=== PATIENT | female | born 1955 | race Two or more races ===

== ENCOUNTER 2017-05-21 13:03 | Inpatient (IN) | payer MEDICARE, MEDICAID ==
[~2017-05-21] VITALS: Ht 152.4 cm; Wt 100.2 kg
--- NOTE | 2017-05-21 13:15 | Emergency Room Report ---
History of Present Illness General Chief Complaint: General Complaint Source: Family Member, Medical Record (Sharif Pino M.D.) Present Illness HPI 62-year-old female, history of hypertension, anoxic brain injury, trach vent dependent, PEG, bedbound, nonverbal, presenting with decreased urination. Patient is nonverbal, history is obtained from sister. 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 Last night only had a "trickle". Patient has been getting fed via G-tube normally with the exception of having held her dinner last night. He should sister is denying known fever chills vomiting diarrhea sister states she has allergies to "a lot" of antibiotics, and she has gotten them before and gets hives, no hx of anaphylaxis, gets benadryl before abx now pt is FULL CODE (Sharif Pino M.D.) Allergies: Coded Allergies: OLANZAPINE (Verified Allergy, Severe, RESP FAILURE, 11/25/13) VANCOMYCIN (Verified Allergy, Severe, 11/25/13) PIPERACILLIN (Verified Allergy, Intermediate, HIVES, 11/25/13) TAZOBACTAM (Verified Allergy, Intermediate, HIVES, 11/25/13) Patient History Past Medical History: see triage record Past Surgical History: none Pertinent Family History: none Reviewed Nursing Documentation: PMH: Agreed, PSxH: Agreed (Sharif Pino M.D. ) Nursing Documentation-PMH Hx Cardiac Problems: No Hx Hypertension: Yes Hx Pacemaker: No Hx Asthma: No Hx COPD: Yes - respiratory failure. trach/vent Hx Diabetes: No Hx Cancer: No Hx Gastrointestinal Problems: No Hx Dialysis: No History Of Psychiatric Problem: No Hx Cerebrovascular Accident: No Hx Seizures: No (Sharif Pino M.D.) Review of Systems All Other Systems: limited - nonverbal (Sharif Pino M.D.) Physical Exam Vital Signs Date Time Temp Pulse Resp B/P (MAP) Pulse Ox O2 Delivery O2 Flow Rate FiO2 05/21/17 12:56 88 16 100/76 98 Mechanical Ventilator 28 Sp02 EP Interpretation: abnormal - 100% on vent General Appearance: other - obese, chronically ill, nonverbal Head: normocephalic, atraumatic Eyes: bilateral eye normal inspection, bilateral eye PERRL, bilateral eye EOMI ENT: moist mucus membranes Neck: normal inspection, full range of motion, supple Respiratory: other - trach'ed with mechanical b/s Cardiovascular #1: normal inspection, regular rate, rhythm, normal capillary refill Cardiovascular #2: 2+ radial (R), 2+ radial (L) Gastrointestinal: other - G tube in place, abd distension, no grimace to deep palpation Musculoskeletal: other - +2 pitting edema b/l Neurologic: other - nonverbal, total paralysis Psychiatric: other - nonverbal Skin: normal inspection, normal color, no rash, warm/dry, well hydrated, normal turgor (RetinoRoberthirose M.DArnoldo) Procedures Critical Care Time Critical Care Time 40 minutes of CC time 62-year-old female, trach, bend, decreased urination Trach tube to vent PLAN: IV access, labs, lactate, troponin, Blood/Urine Cx, Abx, IVF Anticipate admission to [facility] CC time also includes review of labs, review of EMR, discussion with family and paperwork from SNF, d/w hospitalist CC could include dosing of pressors, additional Abx CC time does not include procedures (RetinoRoberthiro M.DArnoldo) Medical Decision Making Diagnostic Impression: Primary Impression: UTI (urinary tract infection) Qualified Codes: N30.01 - Acute cystitis with hematuria Additional Impression: Tracheostomy dependence ER Course 52-year-old female, trach, PEG, decreased urination DDX: Sepsis: UTI/pneumonia Dehydration, electrolyte disturbance, renal failure Abdomen is a little bit more distended than normal per sister, other intra- abdominal source such as diverticulitis, SBO, appendicitis Plan: Obtain labs, ua, EKG, CXR CT abdomen pelvis ER course: Patient has been monitored during ED stay Trach'ed to vent valencia placed - only 40 cc urine out UA positive for UTI - aztreonam given for PCN allergy spoke extensively w/ patients sister who wants patient transferred to another facility, I also spoke with Dr Evans who states wants to wait for CT scan results before admitting here. I told patient it would be extremely difficult to transfer patient to [facility] as there is no clear indication at this time, she understands bt wants to hold the admission until CT and after Dr Evans sees patient Disposition: Signed out patient to Dr. Chatterjee -pending CT scan -please discuss with Dr Evans results before admitting patient to [facility] as sister might have patient leave AMA to go to another facility Please note that this Emergency Department Report was dictated using [employer] anatomic pathology technology software, occasionally this can lead to erroneous entry secondary to interpretation by the dictation equipment. EKG Diagnostic Results EP Interpretation: Yes Rate: normal Rhythm: NSR ST Segments: T wave flattening V3, mild diffuse ST depression ASA given to patient: No Rhythm Strip EP Interpretation: Yes Rate: 90 Rhythm: NSR, no PVCs, no ectopy Chest X-ray CXR: Ordered: Yes 1 view Indication: AMS EP interpretation: Yes Interpretation: Tracheostomy noted, cardiomegaly, unable to fully evaluate left lung base Impression: trach, cardiomegaly Electronically signed by Sharif Pino MD Laboratory Tests Test 05/21/17 13:15 05/21/17 13:16 05/21/17 14:45 05/22/17 03:15 White Blood Count 21.8 K/UL (4.8-10.8) H 23.2 K/UL (4.8-10.8) *H Red Blood Count 4.20 M/UL (4.20-5.40) 3.69 M/UL (4.20-5.40) L Hemoglobin 11.9 G/DL (12.0-16.0) L 10.6 G/DL (12.0-16.0) L Hematocrit 35.8 % (37.0-47.0) L 31.5 % (37.0-47.0) L Mean Corpuscular Volume 85 FL (80-99) 85 FL (80-99) Mean Corpuscular Hemoglobin 28.2 PG (27.0-31.0) 28.8 PG (27.0-31.0) Mean Corpuscular Hemoglobin Concent 33.2 G/DL (32.0-36.0) 33.7 G/DL (32.0-36.0) Red Cell Distribution Width 13.8 % (11.6-14.8) 14.0 % (11.6-14.8) Platelet Count 850 K/UL (150-450) H 847 K/UL (150-450) H Mean Platelet Volume 6.4 FL (6.5-10.1) L 6.3 FL (6.5-10.1) L Neutrophils (%) (Auto) % (45.0-75.0) % (45.0-75.0) Lymphocytes (%) (Auto) % (20.0-45.0) % (20.0-45.0) Monocytes (%) (Auto) % (1.0-10.0) % (1.0-10.0) Eosinophils (%) (Auto) % (0.0-3.0) % (0.0-3.0) Basophils (%) (Auto) % (0.0-2.0) % (0.0-2.0) Differential Total Cells Counted 100 100 Neutrophils % (Manual) 78 % (45-75) H 87 % (45-75) H Lymphocytes % (Manual) 12 % (20-45) L 9 % (20-45) L Monocytes % (Manual) 8 % (1-10) 4 % (1-10) Eosinophils % (Manual) 1 % (0-3) 0 % (0-3) Basophils % (Manual) 1 % (0-2) 0 % (0-2) Band Neutrophils 0 % (0-8) 0 % (0-8) Platelet Estimate Increased H Increased H Platelet Morphology Normal Normal Hypochromasia 1+ 1+ Anisocytosis 1+ Prothrombin Time 10.8 SEC (9.30-11.50) Prothrombin Time INR 1.0 (0.9-1.1) PTT 31 SEC (23-33) Lactic Acid Level 1.00 mmol/L (0.66-2.22) Troponin I 0.000 ng/mL (0.000-0.056) Urine Color [place] Urine Appearance Cloudy Urine pH 5 (4.5-8.0) Urine Specific [place] 1.015 (1.005-1.035) Urine Protein 3+ (NEGATIVE) H Urine Glucose (UA) Negative (NEGATIVE) Urine Ketones Negative (NEGATIVE) Urine Occult Blood 2+ (NEGATIVE) H Urine Nitrite Negative (NEGATIVE) Urine Bilirubin Negative (NEGATIVE) Urine Ictotest Negative Urine Urobilinogen Normal MG/DL (0.0-1.0) Urine Leukocyte Esterase 3+ (NEGATIVE) H Urine RBC 2-4 /HPF (0 - 2) H Urine WBC 10-15 /HPF (0 - 2) H Urine Squamous Epithelial Cells Many /LPF (NONE/OCC) H Urine Amorphous Sediment Moderate /LPF (NONE) H Urine Bacteria Many /HPF (NONE) H Sodium Level 128 MMOL/L (136-145) L 132 MMOL/L (136-145) L Potassium Level 6.1 MMOL/L (3.5-5.1) *H 4.5 MMOL/L (3.5-5.1) Chloride Level 97 MMOL/L (98-107) L 101 MMOL/L (98-107) Carbon Dioxide Level 16 MMOL/L (21-32) L 13 MMOL/L (21-32) L Anion Gap 15 mmol/L (5-15) 18 mmol/L (5-15) H Blood Urea Nitrogen 49 mg/dL (7-18) H 51 mg/dL (7-18) H Creatinine 1.3 MG/DL (0.55-1.30) 1.3 MG/DL (0.55-1.30) Estimate Glomerular Filtration Rate 41.5 mL/min (>60) 41.5 mL/min (>60) Glucose Level 137 MG/DL (74-106) H 167 MG/DL (74-106) H Calcium Level 8.9 MG/DL (8.5-10.1) 8.5 MG/DL (8.5-10.1) Total Bilirubin 0.4 MG/DL (0.2-1.0) 0.3 MG/DL (0.2-1.0) Aspartate Amino Transferase (AST) 15 U/L (15-37) 17 U/L (15-37) Alanine Aminotransferase (ALT) 33 U/L (12-78) 32 U/L (12-78) Alkaline Phosphatase 105 U/L (46-116) 96 U/L (46-116) Pro-B-Type Natriuretic Peptide 2351 pg/mL (0-125) H 3018 pg/mL (0-125) H Total Protein 7.4 G/DL (6.4-8.2) 6.4 G/DL (6.4-8.2) Albumin 2.7 G/DL (3.4-5.0) L 2.3 G/DL (3.4-5.0) L Globulin 4.7 g/dL Albumin/Globulin Ratio 0.6 (1.0-2.7) L Lipase 96 U/L (73-393) Hemoglobin A1c 6.0 % (4.3-6.0) Osmolality 399 mOsm/kg (297-317) H Uric Acid 12.4 MG/DL (2.6-7.2) H Phosphorus Level 7.7 MG/DL (2.5-4.9) H Magnesium Level 2.0 MG/DL (1.8-2.4) Iron Level 27 ug/dL (50-175) L Total Iron Binding Capacity 216 ug/dL (250-450) L Percent Iron Saturation 13 % (15-50) L Unsaturated Iron Binding 189 ug/dL (112-346) Ferritin 175 NG/ML (8-388) Direct Bilirubin 0.1 MG/DL (0.0-0.3) Gamma Glutamyl Transpeptidase 161 U/L (5-85) H C-Reactive Protein, Quantitative 7.4 mg/dL (0.00-0.90) H Triglycerides Level 402 MG/DL (30-150) H Cholesterol Level 173 MG/DL (< 200) LDL Cholesterol 90 mg/dL (<100) HDL Cholesterol 21 MG/DL (40-60) L Cholesterol/HDL Ratio 8.2 (3.3-4.4) H Vitamin B12 Level 1075 PG/ML (193-986) H Folate 51.6 NG/ML (8.6-58.9) Thyroid Stimulating Hormone (TSH) 2.174 uiU/mL (0.358-3.740) Test 05/22/17 04:00 05/22/17 07:00 Urine Osmolality 338 mOsm/kg (429-449) L Urine Random Sodium < 10 MEQ/L (20-110) L Arterial Blood pH 7.240 (7.350-7.450) Arterial Blood Partial Pressure CO2 27.7 mmHg (35.0-45.0) L Arterial Blood Partial Pressure O2 107.9 mmHg (75.0-100.0) H Arterial Blood HCO3 11.8 mmol/L (22.0-26.0) L Arterial Blood Oxygen Saturation 97.2 % (92.0-98.0) Arterial Blood Base Excess -14.0 Jayden Test Positive (Sharif Pino M.D.) ER Course Received signout from Dr. Mcmahan at 2:30 PM Labs significant for hyperkalemia No EKG changes on EKG Was given albuterol per trach and Kayexalate per verbal report from Dr. Hancock CT does not show acute abnormality to explain observed abdominal distention There are masses on both knees There is atelectasis, or soft tissue edema of the chest There is some consolidation versus fluid in the lungs as well also noted is possibly bloody pericardial effusion Patient is not tachycardic or hypotensive. Unlikely tamponade at this time findings discussed with Dr. Evans, PND Tissue was already endorsed to Dr. Evans by Dr. Pino (RASHAAD CHATTERJEE M.D.) Last Vital Signs Date Time Temp Pulse Resp B/P (MAP) Pulse Ox O2 Delivery O2 Flow Rate FiO2 05/21/17 12:56 88 16 100/76 98 Mechanical Ventilator 28 (Sharif Pino M.D.) Status: improved (RASHAAD CHATTERJEE M.D.) Disposition: ADMITTED INPATIENT Condition: Critical Sharif Pino M.D. May 21, 2017 13:15 RASHAAD CHATTERJEE M.D. May 21, 2017 16:53
[2017-05-21] MEDS ORDERED: TERAZOSIN HCL1 MG GT (13:18)
[2017-05-21] MEDS ORDERED: ALBUTEROL2.5 MG/3 M INH (13:18)
[2017-05-21] MEDS ORDERED: ATENOLOL25 MG GT (13:18)
[2017-05-21] MEDS ORDERED: VICODIN 5-3001 EACH GT ×2 (13:18→23:18)
[2017-05-21] MEDS ORDERED: ACETAMINOP160 MG/5 M GT (13:18)
[2017-05-21] MEDS ORDERED: CATAPRES0.1 MG GT (13:18)
[2017-05-21] MEDS ORDERED: LORAZEPAM0.5 MG GT ×2 (13:18→23:18)
[2017-05-21] MEDS ORDERED: SYNTHROID150 MCG GT (13:18)
[2017-05-21 13:36] LABS: APPEARANCE,URINE CLOUDY; KETONES,URINE NEGATIVE (NEGATIVE); LEUKOCYTE ESTERASE ,URINE 3+ (NEGATIVE); NITRITE,URINE NEGATIVE (NEGATIVE); PH,URINE 5 (4.5-8.0); PROTEIN,URINE 3+ (NEGATIVE); UROBILINOGEN,URINE NORMAL MG/DL (0.0-1.0)
[2017-05-21 13:38] LABS: MEAN CORPUSCULAR HEMOGLOBIN 28.2 PG (27.0-31.0); MEAN CORPUSCULAR HGB CONC 33.2 G/DL (32.0-36.0); MEAN CORPUSCULAR VOLUME 85 FL (80-99); MEAN PLATELET VOLUME 6.4 FL (6.5-10.1); PLATELET COUNT 850 K/UL (150-450); RED CELL DISTRIBUTION WIDTH 13.8 % (11.6-14.8); WHITE BLOOD COUNT 21.8 K/UL (4.8-10.8)
[2017-05-21 13:47] LABS: AMORPHOUS SEDIMENT,UR MODERATE /LPF; BACTERIA,URINE MANY /HPF; ICTOTEST NEGATIVE; SQUAMOUS EPITHELIAL CELL,UR MANY /LPF (NONE/OCC)
[2017-05-21 13:50] LABS: PROTHROMBIN TIME 10.8 SEC (9.30-11.50)
[2017-05-21 13:53] VITALS: BP 104/80
[2017-05-21] MEDS: NS IV ONE ×3 (14:15→15:58)
[2017-05-21] MEDS: AZTREONAM IV ONE ×3 (14:15→15:58)
[2017-05-21 14:43] LABS: BAND NEUTROPHILS % (MANUAL) 0 % (0-8); BASOPHILS % (MANUAL) 1 % (0-2); EOSINOPHILS % (MANUAL) 1 % (0-3); LYMPHOCYTES % (MANUAL) 12 % (20-45); NEUTROPHILS % (MANUAL) 78 % (45-75); PLATELET ESTIMATE INCREASED; PLATELET MORPHOLOGY NORMAL; TOTAL CELLS COUNTED 100
[2017-05-21 14:44] LABS: ANISOCYTOSIS 1+; HYPOCHROMASIA 1+
[2017-05-21 15:00] VITALS: BP 118/75
[2017-05-21 15:28] LABS: ALANINE AMINOTRANSFERASE 33 U/L (12-78); ALBUMIN/GLOBULIN RATIO 0.6 (1.0-2.7); ANION GAP 15 mmol/L (5-15); ASPARTATE AMINO TRANSFERASE 15 U/L (15-37); CALCIUM 8.9 MG/DL (8.5-10.1); CARBON DIOXIDE 16 MMOL/L (21-32); CHLORIDE 97 MMOL/L (98-107); CREATININE 1.3 MG/DL (0.55-1.30); GLOMERULAR FILTRATION RATE 41.5 mL/min (>60); LIPASE 96 U/L (73-393); SODIUM 128 MMOL/L (136-145); TOTAL PROTEIN 7.4 G/DL (6.4-8.2)
[2017-05-21 15:29] LABS: POTASSIUM 6.1 MMOL/L (3.5-5.1)
[2017-05-21 16:00] VITALS: BP 112/86
[2017-05-21] MEDS ORDERED: Sodium Polystyrene Sulfonate Enema RECTAL ONE (16:15)
--- NOTE | 2017-05-21 16:36 | Diagnostic Imaging Report ---
Indication: Cough Technique: One view of the chest Comparison: 11/25/2013 Findings: There is opacification of the left lung base. There are some air bronchograms. The heart is enlarged. There is a tracheostomy again demonstrated. There is some atelectasis at the right lung base. Right lung and pleural space are otherwise clear. There is thoracic lumbar scoliotic deformity. Findings are similar to the previous study. Impression: Opacification of the left mid and lower lung, likely combination of pleural fluid and parenchymal consolidation
[2017-05-21 17:00] VITALS: BP 105/88
[2017-05-21] MEDS: Albuterol ud Inhalation HHN SCH ×3 (17:01→22:00)
--- NOTE | 2017-05-21 17:03 | Diagnostic Imaging Report ---
Indication: Abdominal pain Technique: Spiral acquisitions obtained through the abdomen and pelvis. Patient given enteric contrast No IV contrast utilized, per patient request.. Multiplanar reconstructions were generated. Total dose length product 1023 mGycm. CTDIvol(s) 19 mGy. Dose reduction achieved using automated exposure control Comparison: None Findings: There is equivocally a short normal appendix demonstrated. In any case, no evidence of acute appendicitis. No evidence of diverticulosis or diverticulitis. There is equivocal wall thickening of the ascending and proximal transverse colon, although this is more likely artifact of under distention. A small to moderate amount of ascites fluid is present. No free intraperitoneal air. Ingested contrast does traverse the entirety of the small bowel and reaches the cecum. No small bowel wall thickening is demonstrated. Distal esophagus is unremarkable. The stomach contains a gastrostomy tube which is in good position. The duodenum is unremarkable. Lack of IV contrast limits assessment of the solid organs. The liver demonstrates equivocal very slight contour irregularity. It demonstrates diffuse mild low attenuation, consistent with diffuse fatty change. Within segment 6, there is a 12 mm fat attenuation lesion. No other focal hepatic abnormality demonstrated. The gallbladder is surgically absent. There is no biliary ductal dilatation. The pancreas and spleen are unremarkable. The kidneys demonstrate lobulated contours bilaterally, and the left kidney is slightly atrophic. There is a round exophytic 2.9 cm mass coming off of the upper pole of the left kidney. There is a 13 mm soft tissue attenuation lesion, coming off of the interpolar region of the right kidney. There are also multiple right renal cysts. There is a exophytic lower pole right renal lesion which is too small to characterize. No mesenteric or retroperitoneal mass or adenopathy. The bladder is empty, contains a Chang catheter. There is a moderate amount of edema of the bilateral flank and buttock region subcutaneous fat. There is a pericardial effusion. This is incompletely included, measures up to 2.3 cm thick. The contents of the fusion are somewhat high in in attenuation, measuring up to 20 Hounsfield units. There are compressive atelectatic changes at both lung bases, more on the left than on the right. There is abundant epicardial fat which in addition to the pericardial fluid introduced to the enlarged cardiac silhouette chest radiograph, but the heart itself is not enlarged. Impression: Bilateral soft tissue attenuation renal lesions. While possibly on the basis of proteinaceous cysts, the possibility of solid neoplasm should be considered. Recommend further evaluation with ultrasound, contrast MRI, or contrast CT Evidence of anasarca, with pericardial effusion, ascites, and edema of the subcutaneous fat Note high attenuation of the pericardial fluid. This indicates that it could be bloody Equivocal mild wall thickening of the ascending and proximal transverse colon, more likely artifact of under distention, colitis not completely excludable. No evidence of bowel obstruction Gastrostomy tube in good position Diffuse mild hepatic low attenuation, consistent with diffuse fatty change. There is very questionable slight contour irregularity, which if real could indicate early cirrhotic changes. Correlate with clinical history and findings 12 mm fat attenuation lesion within right hepatic lobe, consistent with a benign lipoma Evidence of prior cholecystectomy Multiple right renal cysts and exophytic lower pole right renal lesion which is too small to characterize, no further followup necessary Bilateral basilar left greater than right pulmonary parenchymal compressive atelectasis Note that the pericardial effusion and unusually abundant epicardial fat into due to an enlarged cardiac contour on chest radio -- graph, but the heart itself is not enlarged Chang catheter Findings discussed by phone with Dr. Manjarrez in the emergency room at the time of interpretation The CT scanner at [facility] is accredited by the [employer] and the scans are performed using protocols designed to limit radiation exposure to as low as reasonably achievable to attain images of sufficient resolution adequate for diagnostic evaluation.
[2017-05-21] MEDS ORDERED: Sodium Polystyrene Sulfonate 15gm Powder GT ONE (17:30)
[2017-05-21] MEDS ORDERED: Aztreonam Inj 2 GM in NS 110 ML IV ONE (18:00)
[2017-05-21 18:47] VITALS: BP 123/93
[2017-05-21 20:00] VITALS: BP 105/66
--- NOTE | 2017-05-21 20:21 | Consultation ---
Consult Note Consult Note 62 year old female noted to have significant oliguria and transferred for evaluation. Patient had been significantly hypertensive and has been managed with variety of antihypertensives. Patient has had close monitoring of labs at home and has had normal renal function with very low creatinine levels. Patient has chronic anemia. She has had a prior admission to [facility] with ARF which resolved and difficult to control infection. Patient is well cared for by her sister but also recently had significant gastric residuals. Her urine output has been adequate but became very poor early am and the patient was brought in for evaluation. Patient unresponsive at baseline and ventilator dependent. patient is incontinent of bowel and bladder. the sister has chosen to give multiple vitamins, supplements, and natural feeds PMH trach vent dependent chronic encephalopathy diabetes hypothyroid hypertension pneumonia prior sepsis prior UTI anemia MEDS/ALLERGIES reviewed SHX: lives with caregivers at home; bed bound PHYSICAL EXAM WDWN female chronically ill NAD clear breath sounds bilaterally without rhonchi or wheeze [id number] without MRG NABS nontender no HSM; protuberant; GT no CC some edema diffusely short neck unresponsive Laboratory Tests Test 05/21/17 13:15 05/21/17 13:16 05/21/17 14:45 White Blood Count 21.8 K/UL (4.8-10.8) H Red Blood Count 4.20 M/UL (4.20-5.40) Hemoglobin 11.9 G/DL (12.0-16.0) L Hematocrit 35.8 % (37.0-47.0) L Mean Corpuscular Volume 85 FL (80-99) Mean Corpuscular Hemoglobin 28.2 PG (27.0-31.0) Mean Corpuscular Hemoglobin Concent 33.2 G/DL (32.0-36.0) Red Cell Distribution Width 13.8 % (11.6-14.8) Platelet Count 850 K/UL (150-450) H Mean Platelet Volume 6.4 FL (6.5-10.1) L Neutrophils (%) (Auto) % (45.0-75.0) Lymphocytes (%) (Auto) % (20.0-45.0) Monocytes (%) (Auto) % (1.0-10.0) Eosinophils (%) (Auto) % (0.0-3.0) Basophils (%) (Auto) % (0.0-2.0) Differential Total Cells Counted 100 Neutrophils % (Manual) 78 % (45-75) H Lymphocytes % (Manual) 12 % (20-45) L Monocytes % (Manual) 8 % (1-10) Eosinophils % (Manual) 1 % (0-3) Basophils % (Manual) 1 % (0-2) Band Neutrophils 0 % (0-8) Platelet Estimate Increased H Platelet Morphology Normal Hypochromasia 1+ Anisocytosis 1+ Prothrombin Time 10.8 SEC (9.30-11.50) Prothromb Time International Ratio 1.0 (0.9-1.1) Activated Partial Thromboplast Time 31 SEC (23-33) Lactic Acid Level 1.00 mmol/L (0.66-2.22) Troponin I 0.000 ng/mL (0.000-0.056) Urine Color [place] Urine Appearance Cloudy Urine pH 5 (4.5-8.0) Urine Specific [place] 1.015 (1.005-1.035) Urine Protein 3+ (NEGATIVE) H Urine Glucose (UA) Negative (NEGATIVE) Urine Ketones Negative (NEGATIVE) Urine Occult Blood 2+ (NEGATIVE) H Urine Nitrite Negative (NEGATIVE) Urine Bilirubin Negative (NEGATIVE) Urine Ictotest Negative Urine Urobilinogen Normal MG/DL (0.0-1.0) Urine Leukocyte Esterase 3+ (NEGATIVE) H Urine RBC 2-4 /HPF (0 - 2) H Urine WBC 10-15 /HPF (0 - 2) H Urine Squamous Epithelial Cells Many /LPF (NONE/OCC) H Urine Amorphous Sediment Moderate /LPF (NONE) H Urine Bacteria Many /HPF (NONE) H Sodium Level 128 MMOL/L (136-145) L Potassium Level 6.1 MMOL/L (3.5-5.1) *H Chloride Level 97 MMOL/L (98-107) L Carbon Dioxide Level 16 MMOL/L (21-32) L Anion Gap 15 mmol/L (5-15) Blood Urea Nitrogen 49 mg/dL (7-18) H Creatinine 1.3 MG/DL (0.55-1.30) Estimat Glomerular Filtration Rate 41.5 mL/min (>60) Glucose Level 137 MG/DL (74-106) H Calcium Level 8.9 MG/DL (8.5-10.1) Total Bilirubin 0.4 MG/DL (0.2-1.0) Aspartate Amino Transf (AST/SGOT) 15 U/L (15-37) Alanine Aminotransferase (ALT/SGPT) 33 U/L (12-78) Alkaline Phosphatase 105 U/L (46-116) Pro-B-Type Natriuretic Peptide 2351 pg/mL (0-125) H Total Protein 7.4 G/DL (6.4-8.2) Albumin 2.7 G/DL (3.4-5.0) L Globulin 4.7 g/dL Albumin/Globulin Ratio 0.6 (1.0-2.7) L Lipase 96 U/L (73-393) IMPRESSION respiratory failure possible UTI possible sepsis ARF/CRF hyperkalemia pericardial effusion possible renal cyst vs mass hypertension (now with normal BP off meds) chronic encephalopathy hypothyroidism diabetes PLAN ventilator echo MR abdomen and ultrasound sliding scale feeds as tolerated does not respond to reglan monitor for residuals iv hydration free water GI/renal/ID/cards evaluation monitor clinically empiric antibiotics (penicillin allergic) sister would want [facility] if requires higher level of care ANTIONETTE RODRIGUEZ May 21, 2017 20:21
[2017-05-21] MEDS ORDERED: Aztreonam Inj 0.5 GM in D5W 55 ML IVPB SCH (21:00)
[2017-05-21] MEDS ORDERED: IBEROGAST GT (23:18)
[2017-05-21] MEDS ORDERED: MAGIC BULLET10 MG RC (23:18)
[2017-05-21] MEDS ORDERED: SYSTANE 0.3-0.1 EAC1 OP (23:18)
[2017-05-21] MEDS ORDERED: MULTI-VITAMIN1 EACH GT (23:18)
[2017-05-21] MEDS ORDERED: CHLORTHALIDONE25 MG GT (23:18)
[2017-05-21] MEDS ORDERED: NOVOLOG100 UNIT/3 SUBQ (23:34)
[2017-05-21] MEDS ORDERED: REFRESH P.M. O3.5 GM OP (23:34)
[2017-05-21] MEDS ORDERED: UBIQUINOL100 MG GT (23:34)
[2017-05-21] MEDS ORDERED: BENEFIBER1 EACH GT (23:34)
[2017-05-21] MEDS ORDERED: NOVOLIN R100 UNIT/1 SUBQ (23:34)
[2017-05-22] VITALS: BP 89/74
--- NOTE | 2017-05-22 03:15 | Consultation ---
DATE OF CONSULTATION: 05/21/2017 GASTROENTEROLOGY CONSULTATION CONSULTING PHYSICIAN: Emily Hu M.D. ATTENDING PHYSICIAN: Maykel Evans M.D. REFERRING PHYSICIAN: Maykel Evans M.D. CHIEF COMPLAINT: I was asked to see this patient by Dr. Maykel Evans for evaluation of gastrostomy tube and feeding issues. HISTORY OF PRESENT ILLNESS: The patient is an unfortunate, debilitated 62-year-old white woman with longstanding history of brain injury, who lives at home with 24-hour support. The patient is nonverbal and bedbound. She has been advised to stay with a tracheostomy catheter and a gastrostomy catheter. These have been placed a long time ago. The patient was brought in to the hospital due to oliguria and in the emergency room was found to have severe hyperkalemia and possible sepsis with leukocytosis. The etiology is unclear, but urinary tract infection has been contemplated. The patient was also found to be hyponatremic, but at the same time with four limb and midbody anasarca. CT scan of the abdomen and pelvis has been done and is showing various changes which was supplemented separately. The family gave the patient the feeding in the form of a natural formula. She gets 3 bags in it daily with 330 calories per bag in addition to 2 tablespoons of medium-chain triglycerides and also 1 multivitamin daily. PAST MEDICAL HISTORY: History of tracheostomy, ventilator dependence, chronic encephalopathy, diabetes, hypothyroidism, hypertension, obesity, pneumonia, sepsis, urinary tract infection, and anemia. MEDICATIONS: See the chart list for details. FAMILY HISTORY: Noncontributory. SOCIAL HISTORY: The patient has a sister who looks after her affairs. She lives at home with a 24-hour manager grant. REVIEW OF SYSTEMS: Unobtainable. PHYSICAL EXAMINATION: GENERAL: Debilitated, bedbound, nonverbal white woman in vegetative state, seen with her sister and private duty nurse at bedside. HEENT: Normocephalic. The patient's dentition is poor. NECK: Supple. There is a tracheostomy catheter. CHEST: Reveals coarse breath sounds. CARDIOVASCULAR: Revealed a regular rate. ABDOMEN: Distended, gastrostomy tube, which was 18-Maldivian catheter which was somewhat old but functional. EXTREMITIES: Revealed 2+ edema in all 4 extremities as well as truncal anasarca. LABORATORY AND DIAGNOSTIC DATA: Laboratory data and CT scan were noted. ASSESSMENT: This patient has long-term gastrostomy catheter which should be changed both because the catheter appears somewhat old and also because it is 18-Maldivian caliber and should be upgraded to 20-Maldivian catheter which has less occlusion risk. In addition, the patient will need a bowel regimen. I will try to replicate the patient's home bowel regimen which is [id number] digital stimulation plus suppository. The body has diffuse anasarca and I suspect that this is the main cause of her diffuse swelling. She also has some degree of fatty liver disease and possible early cirrhosis which can be hard to control, but should be treated with appropriate medications. In addition, the patient has hyponatremia and should therefore be treated with free water restriction. RECOMMENDATIONS: Per above discussion and per orders written in the chart. Thank you for asking me to participate in the care of this patient. Emily Hu M.D. DR: Maribell JOB#: [id number] CC: MABLE
[2017-05-22 04:00] VITALS: BP 92/64
[2017-05-22] MEDS: Aztreonam Inj 1 GM in D5W 55 ML IVPB SCH ×2 (04:45→16:00)
[2017-05-22 04:58] LABS: MEAN CORPUSCULAR HEMOGLOBIN 28.8 PG (27.0-31.0); MEAN CORPUSCULAR HGB CONC 33.7 G/DL (32.0-36.0); MEAN CORPUSCULAR VOLUME 85 FL (80-99); MEAN PLATELET VOLUME 6.3 FL (6.5-10.1); PLATELET COUNT 847 K/UL (150-450); RED BLOOD COUNT 3.69 M/UL (4.20-5.40)
[2017-05-22 05:21] LABS: ALANINE AMINOTRANSFERASE 32 U/L (12-78); ASPARTATE AMINO TRANSFERASE 17 U/L (15-37); BILIRUBIN,DIRECT 0.1 MG/DL (0.0-0.3); CRP QUANT 7.4 mg/dL (0.00-0.90); PHOSPHORUS 7.7 MG/DL (2.5-4.9); TOTAL PROTEIN 6.4 G/DL (6.4-8.2); URIC ACID 12.4 MG/DL (2.6-7.2)
[2017-05-22 05:23] LABS: ANION GAP 18 mmol/L (5-15); CALCIUM 8.5 MG/DL (8.5-10.1); CARBON DIOXIDE 13 MMOL/L (21-32); CHLORIDE 101 MMOL/L (98-107); CHOLESTEROL 173 MG/DL (< 200); CHOLESTEROL/HDL RATIO 8.2 (3.3-4.4); CREATININE 1.3 MG/DL (0.55-1.30); GLOMERULAR FILTRATION RATE 41.5 mL/min (>60); POTASSIUM 4.5 MMOL/L (3.5-5.1); SODIUM 132 MMOL/L (136-145); THYROID STIMULATING HORMONE 2.174 uiU/mL (0.358-3.740)
[2017-05-22 05:29] LABS: IRON 27 ug/dL (50-175); TOTAL IRON BINDING CAPACITY 216 ug/dL (250-450)
[2017-05-22 05:49] LABS: WHITE BLOOD COUNT 23.2 K/UL (4.8-10.8)
[2017-05-22 06:05] LABS: FOLIC ACID 51.6 NG/ML (8.6-58.9)
--- NOTE | 2017-05-22 07:15 | Consultation ---
DATE OF CONSULTATION: 05/21/2017 CARDIOLOGY CONSULTATION CONSULTING PHYSICIAN: Ramo Toure M.D. REQUESTING PHYSICIAN: 1. Maykel Evans M.D. 2. Pito Jones M.D. REASON FOR CONSULTATION: Pericardial effusion and hypotension. HISTORY OF PRESENT ILLNESS: This 62-year-old female with tracheostomy and respiratory failure, has a history of hypertension and is on multiple antihypertensives. Over the past couple of days, she has had increasing residuals from her G-tube, decreasing urine output, increasing lethargy from baseline, and low blood pressure readings despite discontinuation of antihypertensives. The patient was brought to the emergency room at [facility] when evaluation including a CAT scan of the chest, abdomen and pelvis was obtained and a pericardial effusion noted. I have been asked to assist with further cardiovascular care. The patient has had episodes of sinus tachycardia as well since admission. Her rhythm remains sinus however. PAST MEDICAL HISTORY: Ventilator dependent, tracheostomy, encephalopathy, type 2 diabetes mellitus, hypothyroidism, hypertension, recurring pneumonias left sided predominantly, history of sepsis, recurring urinary tract infections, and anemia of chronic disease. ALLERGIES: Include vancomycin, tazobactam and piperacillin, and olanzapine. SOCIAL HISTORY: Negative for smoking, alcohol, or substance abuse. FAMILY HISTORY: Noncontributory. REVIEW OF SYSTEMS: Not obtainable from patient, however, caregivers at bedside note no fevers, some cough and sputum, recurring left-sided pneumonia, some leg swelling, decreased urine output, and decreasing level of consciousness from baseline. PHYSICAL EXAMINATION: VITAL SIGNS: Blood pressure 89/60, pulse 95, respirations 16, and temperature 98.6. GENERAL: The patient is ill-appearing, ventilator dependent, short neck, tracheostomy with vent connected. Eyes closed. LUNGS: With bilateral breath sounds and rhonchi, left greater than right. CARDIAC: Regular rhythm and rate. Distant S1 and S2. No appreciated rub. ABDOMEN: Soft, obese. G-tube site intact. EXTREMITIES: Reveal 2+ edema. NEUROLOGIC: Reveals paraparesis. LABORATORY AND DIAGNOSTIC DATA: White count 21.8, hemoglobin 11.9. Sodium 128, potassium 6.1, bicarbonate 16, BUN 49, and creatinine 1.3. Pro-natriuretic peptide 2300. Albumin 2.7. INR is 1.0. Urinalysis with 10 to 15 white cells. Chest x-ray with left-sided pneumonia. EKG, sinus rhythm, nonspecific ST-T wave changes, and no T-wave peaking. IMPRESSION: 1. Shock, sepsis, pneumonia, pericardial effusion. No signs of tamponade. 2. History of hypertension, now with low blood pressure. 3. Hyperkalemia. 4. Hyponatremia. 5. Prerenal azotemia. 6. Acute renal failure due to acute tubular necrosis. 7. Metabolic acidosis. 8. Paroxysmal sinus tachycardia. 9. Respiratory failure with tracheostomy. 10. Anasarca with ascites. 11. Moderate to severe protein-calorie malnutrition. PLAN: 1. ESTEBAN support. 2. Cardiac monitoring. 3. Ventilator support. 4. Broad-spectrum antibiotics after cultures are obtained. 5. A 2D echocardiogram. 6. Saline volume resuscitation. 7. Kayexalate has been given already for elevated potassium and followup labs will be obtained. 8. Hold antihypertensives. 9. Resume atenolol once blood pressure has stabilized. 10. Condition remains serious with guarded prognosis. Ramo Toure M.D. DR: ALIN JOB#: [id number] CC:
[2017-05-22 07:16] LABS: ABG ALLEN TEST POSITIVE; ABG PCO2 27.7 mmHg (35.0-45.0)
[2017-05-22 08:00] VITALS: BP 110/69
--- NOTE | 2017-05-22 08:00 | Pulmonology Progress Note ---
Assessment/Plan Assessment/Plan IMPRESSION respiratory failure possible UTI possible sepsis ARF/CRF hyperkalemia pericardial effusion possible renal cyst vs mass hypertension (now with normal BP off meds) chronic encephalopathy hypothyroidism diabetes possible cirrhosis atrial fib PLAN ventilator management check ABG echo MR abdomen and ultrasound sliding scale and monitor sugars feeds as tolerated does not respond to reglan monitor for residuals GT change iv hydration free water GI/renal/ID/cards evaluation monitor clinically empiric antibiotics (penicillin allergic) sister would want [facility] if requires higher level of care Subjective ROS Limited/Unobtainable: Yes Allergies: Coded Allergies: OLANZAPINE (Verified Allergy, Severe, RESP FAILURE, 11/25/13) VANCOMYCIN (Verified Allergy, Severe, 11/25/13) PIPERACILLIN (Verified Allergy, Intermediate, HIVES, 11/25/13) TAZOBACTAM (Verified Allergy, Intermediate, HIVES, 11/25/13) Subjective overnight events reviewed labs noted atrial fib Objective Last 24 Hour Vital Signs Date Time Temp Pulse Resp B/P (MAP) Pulse Ox O2 Delivery O2 Flow Rate FiO2 05/22/17 07:17 90 15 28 05/22/17 05:00 91 16 28 05/22/17 04:00 28 05/22/17 04:00 96.9 68 18 92/64 100 Mechanical Ventilator 22 05/22/17 04:00 87 05/22/17 03:00 89 17 28 05/22/17 01:00 93 16 28 05/22/17 00:00 96.1 68 18 89/74 100 Mechanical Ventilator 25 05/22/17 00:00 90 05/22/17 00:00 28 05/21/17 23:00 62 19 28 05/21/17 23:00 Mechanical Ventilator 28 05/21/17 23:00 Mechanical Ventilator 28 05/21/17 21:00 96.9 05/21/17 21:00 92 15 28 05/21/17 20:00 28 05/21/17 20:00 93 05/21/17 20:00 93.7 92 19 105/66 100 Mechanical Ventilator 25 05/21/17 19:00 94 18 28 05/21/17 18:47 97.5 92 19 123/93 100 Mechanical Ventilator 28 05/21/17 18:30 92 12 107/74 100 Mechanical Ventilator 28 05/21/17 17:04 96 18 100 Mechanical Ventilator 28 05/21/17 17:00 92 13 105/88 100 Mechanical Ventilator 05/21/17 16:39 93 18 28 05/21/17 16:00 98.7 87 18 112/86 100 Mechanical Ventilator 28 05/21/17 15:23 89 18 28 05/21/17 15:00 87 18 118/75 100 Mechanical Ventilator 28 05/21/17 14:55 94 18 100 Mechanical Ventilator 28 05/21/17 13:53 100.1 88 18 104/80 100 Mechanical Ventilator 28 05/21/17 13:36 92 18 Mechanical Ventilator 28 05/21/17 13:31 28 05/21/17 13:12 90 18 28 05/21/17 12:56 88 16 100/76 98 Mechanical Ventilator 28 Objective WDWN female chronically ill NAD clear breath sounds bilaterally without rhonchi or wheeze [id number] without MRG NABS nontender no HSM; protuberant; GT no CC some edema diffusely short neck unresponsive Laboratory Tests 05/21/17 13:15: White Blood Count 21.8H, Red Blood Count 4.20, Hemoglobin 11.9L, Hematocrit 35.8L, Mean Corpuscular Volume 85, Mean Corpuscular Hemoglobin 28.2, Mean Corpuscular Hemoglobin Concent 33.2, Red Cell Distribution Width 13.8, Platelet Count 850H, Mean Platelet Volume 6.4L, Neutrophils (%) (Auto) , Lymphocytes (%) (Auto) , Monocytes (%) (Auto) , Eosinophils (%) (Auto) , Basophils (%) (Auto) , Differential Total Cells Counted 100, Neutrophils % (Manual) 78H, Lymphocytes % (Manual) 12L, Monocytes % (Manual) 8, Eosinophils % (Manual) 1, Basophils % ( Manual) 1, Band Neutrophils 0, Platelet Estimate IncreasedH, Platelet Morphology Normal, Hypochromasia 1+, Anisocytosis 1+, Prothrombin Time 10.8, Prothromb Time International Ratio 1.0, Activated Partial Thromboplast Time 31, Lactic Acid Level 1.00, Troponin I 0.000 05/21/17 13:16: Urine Color [place], Urine Appearance Cloudy, Urine pH 5, Urine Specific [place] 1.015, Urine Protein 3+H, Urine Glucose (UA) Negative, Urine Ketones Negative, Urine Occult Blood 2+H, Urine Nitrite Negative, Urine Bilirubin Negative, Urine Ictotest Negative, Urine Urobilinogen Normal, Urine Leukocyte Esterase 3+H, Urine RBC 2-4H, Urine WBC 10-15H, Urine Squamous Epithelial Cells ManyH, Urine Amorphous Sediment ModerateH, Urine Bacteria ManyH 05/21/17 14:45: Sodium Level 128L, Potassium Level 6.1*H, Chloride Level 97L, Carbon Dioxide Level 16L, Anion Gap 15, Blood Urea Nitrogen 49H, Creatinine 1.3, Estimat Glomerular Filtration Rate 41.5, Glucose Level 137H, Calcium Level 8.9, Total Bilirubin 0.4, Aspartate Amino Transf (AST/SGOT) 15, Alanine Aminotransferase ( ALT/SGPT) 33, Alkaline Phosphatase 105, Pro-B-Type Natriuretic Peptide 2351H, Total Protein 7.4, Albumin 2.7L, Globulin 4.7, Albumin/Globulin Ratio 0.6L, Lipase 96 05/22/17 03:15: White Blood Count 23.2*H, Red Blood Count 3.69L, Hemoglobin 10.6L, Hematocrit 31.5L, Mean Corpuscular Volume 85, Mean Corpuscular Hemoglobin 28.8, Mean Corpuscular Hemoglobin Concent 33.7, Red Cell Distribution Width 14.0, Platelet Count 847H, Mean Platelet Volume 6.3L, Neutrophils (%) (Auto) , Lymphocytes (%) (Auto) , Monocytes (%) (Auto) , Eosinophils (%) (Auto) , Basophils (%) (Auto) , Neutrophils % (Manual) [Pending], Lymphocytes % (Manual) [Pending], Platelet Estimate [Pending], Platelet Morphology [Pending], Sodium Level 132L, Potassium Level 4.5, Chloride Level 101, Carbon Dioxide Level 13L, Anion Gap 18H, Blood Urea Nitrogen 51H, Creatinine 1.3, Estimat Glomerular Filtration Rate 41.5, Glucose Level 167H, Calcium Level 8.5, Total Bilirubin 0.3, Aspartate Amino Transf (AST/SGOT) 17, Alanine Aminotransferase (ALT/SGPT) 32, Alkaline Phosphatase 96, Pro-B-Type Natriuretic Peptide 3018H, Total Protein 6.4, Albumin 2.3L, Hemoglobin A1c 6.0, Osmolality 399H, Uric Acid 12.4H, Phosphorus Level 7.7H, Magnesium Level 2.0, Iron Level 27L, Total Iron Binding Capacity 216L, Percent Iron Saturation 13L, Unsaturated Iron Binding 189, Ferritin 175, Direct Bilirubin 0.1, Gamma Glutamyl Transpeptidase 161H, C-Reactive Protein, Quantitative 7.4H, Triglycerides Level 402H, Cholesterol Level 173, LDL Cholesterol 90, HDL Cholesterol 21L, Cholesterol/HDL Ratio 8.2H, Vitamin B12 Level 1075H, Folate 51.6, Thyroid Stimulating Hormone (TSH) 2.174 05/22/17 04:00: Urine Osmolality 338L, Urine Random Sodium < 10L 05/22/17 07:00: Arterial Blood pH 7.240*L, Arterial Blood Partial Pressure CO2 27.7L, Arterial Blood Partial Pressure O2 107.9H, Arterial Blood HCO3 11.8L, Arterial Blood Oxygen Saturation 97.2, Arterial Blood Base Excess -14.0, Jayden Test Positive Current Medications Medications (Trade) Dose Ordered Sig/Alex Route PRN Reason Start Time Stop Time Status Last Admin Dose Admin Albuterol Sulfate (Proventil) 2.[address] [facility] 05/21/17 22:00 05/26/17 21:59 Artificial Tears (Akwa-Tears) 1 drop TID BOTH EYES 05/22/17 09:00 06/21/17 08:59 Ascorbic Acid (Vitamin C) 1,000 mg DAILY GT 05/22/17 09:00 06/21/17 08:59 Atenolol (Tenormin) 12.5 mg DAILY ORAL 05/22/17 09:00 06/21/17 08:59 Aztreonam 1 gm/ Dextrose 55 ml @ 110 mls/hr Q12HR@0400,1600 IVPB 05/22/17 04:00 05/29/17 03:59 05/22/17 04:45 Ipratropium [place] (Atrovent) [address] [facility] 05/22/17 09:00 05/27/17 08:59 Lactobacillus Acidophilus (Culturelle) 1 tab DAILY GT 05/22/17 09:00 06/21/17 08:59 Levothyroxine Sodium (Synthroid) 75 mcg ACBREAKFAST GT 05/22/17 06:30 06/21/17 06:29 05/22/17 06:00 Levothyroxine Sodium (Synthroid) 100 mcg ACBREAKFAST GT 05/22/17 06:30 06/21/17 06:29 05/22/17 06:00 Magnesium Chloride (Slow-Mag) 64 mg TWICE A DAY ORAL 05/22/17 09:00 06/21/17 08:59 UNV Multivitamins (Multivitamins W/ Minerals 15ml Liquid) 15 ml DAILY GT 05/22/17 09:00 06/21/17 08:59 Non-Formulary Medication (Non-Formulary Med) 1 ea DAILY BOTH EYES 05/22/17 09:00 06/21/17 08:59 UNV Sodium Chloride 1,000 ml @ 100 mls/hr Q10H IV 05/21/17 21:00 06/20/17 20:59 05/22/17 04:45 ANTIONETTE RODRIGUEZ May 22, 2017 08:00
[2017-05-22 08:14] LABS: BAND NEUTROPHILS % (MANUAL) 0 % (0-8); BASOPHILS % (MANUAL) 0 % (0-2); EOSINOPHILS % (MANUAL) 0 % (0-3); HYPOCHROMASIA 1+; LYMPHOCYTES % (MANUAL) 9 % (20-45); NEUTROPHILS % (MANUAL) 87 % (45-75); PLATELET ESTIMATE INCREASED; PLATELET MORPHOLOGY NORMAL; TOTAL CELLS COUNTED 100
[2017-05-22] MEDS: Artificial Tears 1.4% Op Soln BOTH EYES SCH ×3 (08:31→18:15)
[2017-05-22] MEDS: Multivitamins W/Minerals 15 ML UDC GT SCH (08:31)
[2017-05-22] MEDS: Lactobacillus-GG tablet GT SCH (08:31)
[2017-05-22] MEDS: Atenolol 25mg tab ORAL SCH (08:32)
[2017-05-22] MEDS: Ascorbic Acid 500mg tab GT SCH (08:32)
[2017-05-22] MEDS ORDERED: Pedialyte 1000ml Btl ORAL ONE (09:00)
[2017-05-22] MEDS: Ipratropium 0.02% Inh Soln 2.5ml UD HHN SCH ×2 (09:09→19:52)
[2017-05-22] MEDS: Albuterol ud Inhalation HHN SCH ×2 (09:10→21:32)
[2017-05-22] MEDS ORDERED: Sodium Bicarbonate 50ml Carp IV ONE ×2 (11:15→15:15)
[2017-05-22 11:36] VITALS: BP 109/94
[2017-05-22 13:52] LABS: ABG ALLEN TEST POSITIVE; ABG BASE EXCESS -13.7; ABG PCO2 26.6 mmHg (35.0-45.0)
[2017-05-22] MEDS: Sodium Bicarbonate 100 ML in NS 1000ml 1,000 ML IV SCH (14:00)
--- NOTE | 2017-05-22 14:11 | Cardiology Report ---
APPROVED REPORT EXAM: Two-dimensional and M-mode echocardiogram with Doppler and color Doppler. INDICATION Pericardial effusion Other Information Technically limited study due to poor acoustic windows Technically difficult and limited study due to poor parasternal acoustical windows and patient on ventilator. M-mode measurements of left ventricle not obtainable due to cardiac position (angle) Normal left ventricular chamber size, systolic function and wall motion to extent visualized. Left ventricular ejection fraction estimated to be grossly normal to the extent visualized . There is what appears to be significant amount of echogenic material in the pericardial space noted anterior to the RV and apex All other cardiac chamber sizes are within normal limits. Mild focal aortic valve sclerosis with adequate cusp excursion. Mildly thickened mitral valve leaflets with normal excursion. Mild mitral annulus and aortic root calcification. Pulmonic valve not visualized. Valveualr detial is very poorly defined IVC meaures at 1.7 cm without physiologic collapse. Consultation with ordering physician is pending A color flow and spectral Doppler study was performed and revealed: No aortic regurgitation. Mild mitral regurgitation. Mitral diastolic velocities suggest reduced left ventricular relaxation c/w mild LV diastolic dysfunction (Grade I ). Mild tricuspid regurgitation. Tricuspid systolic velocities suggests peak right ventricular systolic pressure of 76 mmHg, consistent with severe pulmonary hypertension.
--- NOTE | 2017-05-22 14:28 | Cardiology Report ---
APPROVED REPORT EKG Measurement Heart [id number] Normal sinus rhythm Rightward axis Low voltage QRS Septal infarct, age undetermined Abnormal ECG
--- NOTE | 2017-05-22 15:13 | Consultation ---
Consult Note Consult Note asked to eval by Dr De León for renal failure- high K , Low Na , low urine out put 62-year-old female, history of hypertension, anoxic brain injury, trach vent dependent, PEG, bedbound, nonverbal, presenting with decreased urination. Patient is nonverbal, history is obtained from sister. 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 Last night only had a "trickle". Patient has been getting fed via G-tube normally with the exception of having held her dinner last night. He should sister is denying known fever chills vomiting diarrhea sister states she has allergies to "a lot" of antibiotics, and she has gotten them before and gets hives, no hx of anaphylaxis, gets benadryl before abx now pt is FULL CODE Coded Allergies: OLANZAPINE (Verified Allergy, Severe, RESP FAILURE, 11/25/13) VANCOMYCIN (Verified Allergy, Severe, 11/25/13) PIPERACILLIN (Verified Allergy, Intermediate, HIVES, 11/25/13) TAZOBACTAM (Verified Allergy, Intermediate, HIVES, 11/25/13) data reviewed Patient examined . Assessment/Plan 1. Shock, sepsis, pneumonia, pericardial effusion. 2. History of hypertension, now with low blood pressure. 3. Hyperkalemia. 4. Hyponatremia. 5. Prerenal azotemia. 6. Acute renal failure due to ? sepsis , intravascular volume depletion, low BP... 7. Respiratory failure with tracheostomy. 8. Anasarca with ascites. due to low Albumin 9. Hypoalbuminemia: - Increase loss: NS - Decrease production: Nutritional 10. HypoThyroidism Plan: Antibiotics- Bicitra GT- monitor bicarbs.. IV protonix Albumin one time- Pulmonary support- Keep BP in check Monitor renal parameters- Avoid nephrotoxics 24 H urine for proteins per orders QIANA SALGADO May 22, 2017 15:13
--- NOTE | 2017-05-22 15:30 | History and Physical Report ---
DATE OF ADMISSION: 05/21/2017 CHIEF COMPLAINT: Diminished urine output. HISTORY OF PRESENT ILLNESS: The patient is an unfortunate 62-year-old female. She has a history of encephalopathy, chronic respiratory failure, hypertensive heart disease was brought in by caregivers and family members because of diminished urine output. Family noted for several days that the urine output had been diminished. She also had difficulties with tolerating feedings. There were no reports of any fever or chills. No cough. No congestion or diarrhea. Evaluation in the emergency room, the patient was noted to have a sodium of 128 and potassium 6. Her BUN was 49 with creatinine 1.3. [place] [address]. Urine showed 10 to 15 WBCs. Chest x-ray showed left-sided opacification. The patient has been pancultured, has been started on broad-spectrum IV antibiotic therapy. She is now admitted for further evaluation and care. PAST MEDICAL HISTORY: As above. PAST SURGICAL HISTORY: History of trach and a G-tube. CURRENT MEDICATIONS: Reconciled and reviewed. ALLERGIES: Include Zyprexa, piperacillin, tazobactam, vancomycin. The patient has multiple adverse reactions to multiple antihypertensives. FAMILY HISTORY: Noncontributory. SOCIAL HISTORY: There is no known history of tobacco, ethanol, or drugs. REVIEW OF SYSTEMS: From the patient is unobtainable as she is nonverbal. PHYSICAL EXAMINATION: VITAL SIGNS: Temperature 96.8, pulse 92, respirations 17, blood pressure 110/69. GENERAL: Patient is chronically ill-appearing female, in no apparent distress. She is currently on the ventilator. She is awake, but does not follow commands. NECK: Supple. Trachea site was midline. HEART: Regular rate and rhythm without murmurs, rubs, gallops. LUNGS: Clear to auscultation bilaterally. ABDOMEN: Soft, nontender, nondistended. EXTREMITIES: Significant for 3+ pitting edema. LABORATORY DATA: Labs show sodium 128, potassium 6.1, chloride 97, bicarb 16, BUN 49, creatinine 1.3. White count 22,000 hemoglobin 11, hematocrit 35, platelet count 850. Coags are normal. UA showed 10 to 15 WBCs. Chest x-ray showed left-sided opacification. CT scan of the abdomen showed renal lesions unclear significance, anasarca, fatty liver, renal cyst. ASSESSMENT: This is a unfortunate female with history of chronic encephalopathy, chronic respiratory failure, hypertension, admitted with acute renal failure and sepsis possibly secondary to pneumonia and urinary tract infection. PLAN: Aggressive fluid resuscitation. Monitor volume status closely. Follow pending cultures. Broad-spectrum antibiotics. Continue G-tube feeds. Continue aggressive skin care and turning. The patient's prognosis remains guarded. Pito Jones M.D. DR: Susannah JOB#: [id number] CC:
[2017-05-22 16:00] VITALS: BP 102/57
--- NOTE | 2017-05-22 16:52 | Diagnostic Imaging Report ---
Indication: Abnormal renal function tests Technique: Grayscale and duplex images of the kidneys, retroperitoneum, and bladder were obtained. Comparison:Reference made to abdomen pelvis CT 05/21/2017 Findings: Right kidney measures 9.8 cm in length. Left kidney measures 10.5 cm in length. Both kidneys demonstrate increased echogenicity and suggestion of cortical thinning. No hydronephrosis. There are bilateral renal cysts noted. The largest on the left measures 3 cm long axis dimension, probably correlates to the indeterminate lesion described on recent CT however, due to patient body habitus, the overall architecture of the kidneys is hard to discern.. Normal inferior vena cava. Bladder is empty, contains a Chang catheter. Ascites fluid is incidentally noted Impression: Bilateral renal cysts. The largest cyst on the left corresponds in size to the indeterminate lesion described on recent CT scanner therefore demonstrated as a cyst Bilateral echogenic kidneys, consistent with medical renal disease. Negative for hydronephrosis Empty bladder containing a Chang catheter
--- NOTE | 2017-05-22 17:45 | Consultation ---
DATE OF CONSULTATION: 05/22/2017 INFECTIOUS DISEASE CONSULTATION CONSULTING PHYSICIAN: Gutierrez Edwards M.D. This consultation is for coverage of Dr. Brown. PRIMARY ATTENDING PHYSICIAN: Maykel Evans M.D. REASON FOR CONSULTATION: UTI and pneumonia. HISTORY OF PRESENT ILLNESS: This 62-year-old female admitted yesterday from home because of decreased urine output. The patient is chronically debilitated and is on mechanical ventilator for 14 years, but is kept at home and has a nurse at home. It was noticed the patient has low-grade fever at the time of admission. Temperature was 100.1 degrees. She had leukocytosis of 23,000 today. PAST MEDICAL HISTORY: Significant for diabetes mellitus, hypertension, hypothyroidism, chronic anemia, anoxic brain injury, ventilator-dependent respiratory failure, and COPD. PAST SURGICAL HISTORY: Status post tracheostomy, status post G-tube, status post cholecystectomy. MEDICATIONS: Magnesium oxide, Atrovent, multivitamin, vitamin C, lactobacillus, atenolol, levothyroxine, aztreonam, albuterol, and sodium chloride. ALLERGIES: Allergic to penicillin, vancomycin, olanzapine, and tazobactam. SOCIAL HISTORY: Single. Next of the kin is the sister. REVIEW OF SYSTEMS: Unobtainable, but has swelling on and off. PHYSICAL EXAMINATION: VITAL SIGNS: Temperature 98.6 degrees, pulse 98, blood pressure 110/69. HEAD AND NECK: Status post tracheostomy. [place] conjunctivae. HEART: Tachycardic. LUNGS: On mechanical ventilator. Has coarse sounds bilaterally. ABDOMEN: Soft. Status post G-tube. EXTREMITIES: Have generalized edema and anasarca. NEUROLOGIC: Can open eyes. LABORATORY DATA: WBC 23.2, hemoglobin 10.6, hematocrit 31.5, platelets are 847,000. Sodium 132, potassium 4.5, BUN 51, creatinine 1.3, glucose 167. Lactic acid was elevated at 12.4. Chest x-ray showed opacification of mid and lower lung. CT scan of the abdomen and pelvis showed anasarca, soft tissue attenuation of renal lesions. The patient is status post cholecystectomy. left greater than right pulmonary bronchial compressive atelectasis. IMPRESSION: Sepsis with leukocytosis and lactic acidosis. The patient seems to have urinary tract infection, have pyuria and urine culture is growing gram-negative rods. The patient also has atelectasis, cannot rule out underlying pneumonia. Seems to have acute renal failure, anasarca, pericardial effusion, hypothyroidism, hyperkalemia at the time of admission. RECOMMENDATION: We will continue with aztreonam. We will follow up the culture and adjust antibiotics. The patient will have an MRI. At the end of my exam, I thank Dr. Evans for involving me in the care of this patient. Gutierrez Edwards M.D. DR: Daniel JOB#: [id number] CC: MABLE
[2017-05-22] MEDS: Sodium Citrate 30ml ORAL SCH (18:00)
[2017-05-22 20:00] VITALS: BP 110/76
[2017-05-22] MEDS: Pantoprazole Inj IVP SCH (20:58)
[2017-05-22] MEDS ORDERED: Magnesium Oxide 400mg tab GT SCH (21:00)
--- NOTE | 2017-05-22 22:04 | General Progress Note ---
Assessment/Plan Assessment/Plan Assessment - encephalopathy - Resp failure - Trach - dysphagia - PEG - edema / anasarca - UTI/PNA Recommendations - continue TF - free water restrict - GT change this week Subjective Allergies: Coded Allergies: OLANZAPINE (Verified Allergy, Severe, RESP FAILURE, 11/25/13) VANCOMYCIN (Verified Allergy, Severe, 11/25/13) PIPERACILLIN (Verified Allergy, Intermediate, HIVES, 11/25/13) TAZOBACTAM (Verified Allergy, Intermediate, HIVES, 11/25/13) Subjective Resting comfortably above noted Objective Last 24 Hour Vital Signs Date Time Temp Pulse Resp B/P (MAP) Pulse Ox O2 Delivery O2 Flow Rate FiO2 05/22/17 21:34 94 20 100 Mechanical Ventilator 05/22/17 21:19 98 18 28 05/22/17 19:54 90 22 100 Mechanical Ventilator 05/22/17 19:54 28 05/22/17 19:53 90 20 100 Mechanical Ventilator 05/22/17 19:52 90 18 28 05/22/17 17:12 95 18 05/22/17 16:00 96 05/22/17 16:00 97.0 97 18 102/57 100 Mechanical Ventilator 05/22/17 15:53 94 16 28 05/22/17 13:14 99 20 28 05/22/17 12:00 90 05/22/17 11:38 28 05/22/17 11:36 97.0 95 19 109/94 99 Mechanical Ventilator 05/22/17 11:31 99 20 28 05/22/17 10:48 98 20 28 05/22/17 09:13 98 20 28 05/22/17 09:11 98 22 100 Mechanical Ventilator 05/22/17 09:00 98 20 100 Mechanical Ventilator 28 05/22/17 09:00 28 05/22/17 08:32 95 110/69 05/22/17 08:00 92 05/22/17 08:00 28 05/22/17 08:00 96.8 95 17 110/69 97 Mechanical Ventilator 22 05/22/17 07:17 90 15 28 05/22/17 05:00 91 16 28 05/22/17 04:00 28 05/22/17 04:00 96.9 68 18 92/64 100 Mechanical Ventilator 22 05/22/17 04:00 87 05/22/17 03:00 89 17 28 11/28/17 01:00 93 16 28 05/22/17 00:00 96.1 68 18 89/74 100 Mechanical Ventilator 25 05/22/17 00:00 90 05/22/17 00:00 28 05/21/17 23:00 62 19 28 05/21/17 23:00 Mechanical Ventilator 28 05/21/17 23:00 Mechanical Ventilator 28 Intake and Output 05/22/17 05/23/17 19:00 07:00 Intake Total 1260 ml Balance 1260 ml Intake Oral 250 ml IV Total 1010 ml # Bowel Movements 2 Laboratory Tests 05/22/17 03:15: White Blood Count 23.2*H, Red Blood Count 3.69L, Hemoglobin 10.6L, Hematocrit 31.5L, Mean Corpuscular Volume 85, Mean Corpuscular Hemoglobin 28.8, Mean Corpuscular Hemoglobin Concent 33.7, Red Cell Distribution Width 14.0, Platelet Count 847H, Mean Platelet Volume 6.3L, Neutrophils (%) (Auto) , Lymphocytes (%) (Auto) , Monocytes (%) (Auto) , Eosinophils (%) (Auto) , Basophils (%) (Auto) , Differential Total Cells Counted 100, Neutrophils % (Manual) 87H, Lymphocytes % (Manual) 9L, Monocytes % (Manual) 4, Eosinophils % (Manual) 0, Basophils % ( Manual) 0, Band Neutrophils 0, Platelet Estimate IncreasedH, Platelet Morphology Normal, Hypochromasia 1+, Sodium Level 132L, Potassium Level 4.5, Chloride Level 101, Carbon Dioxide Level 13L, Anion Gap 18H, Blood Urea Nitrogen 51H, Creatinine 1.3, Estimat Glomerular Filtration Rate 41.5, Glucose Level 167H, Hemoglobin A1c 6.0, Osmolality 399H, Uric Acid 12.4H, Calcium Level 8.5, Phosphorus Level 7.7H, Magnesium Level 2.0, Iron Level 27L, Total Iron Binding Capacity 216L, Percent Iron Saturation 13L, Unsaturated Iron Binding 189 , Ferritin 175, Total Bilirubin 0.3, Direct Bilirubin 0.1, Gamma Glutamyl Transpeptidase 161H, Aspartate Amino Transf (AST/SGOT) 17, Alanine Aminotransferase (ALT/SGPT) 32, Alkaline Phosphatase 96, C-Reactive Protein, Quantitative 7.4H, Pro-B-Type Natriuretic Peptide 3018H, Total Protein 6.4, Albumin 2.3L, Triglycerides Level 402H, Cholesterol Level 173, LDL Cholesterol 90, HDL Cholesterol 21L, Cholesterol/HDL Ratio 8.2H, Vitamin B12 Level 1075H, Folate 51.6, Thyroid Stimulating Hormone (TSH) 2.174 05/22/17 04:00: Urine Osmolality 338L, Urine Random Sodium < 10L 05/22/17 07:00: Arterial Blood pH 7.240*L, Arterial Blood Partial Pressure CO2 27.7L, Arterial Blood Partial Pressure O2 107.9H, Arterial Blood HCO3 11.8L, Arterial Blood Oxygen Saturation 97.2, Arterial Blood Base Excess -14.0, Jayden Test Positive 05/22/17 13:40: Arterial Blood pH 7.260L, Arterial Blood Partial Pressure CO2 26.6L, Arterial Blood Partial Pressure O2 103.8H, Arterial Blood HCO3 11.8L, Arterial Blood Oxygen Saturation 96.9, Arterial Blood Base Excess -13.7, Jayden Test Positive Height (Feet): 5 Height (Inches): 0.00 Weight (Pounds): 150 Objective Obese WW NCAT supple CTA RRR obese, soft abd, (+) GT (++) edema OBS JILL WHITNEY May 22, 2017 22:04
[2017-05-22] MEDS ORDERED: NS 500ML ONE (22:27)
[2017-05-22] MEDS ORDERED: Sterile Water Irrig 1000ml IRRIG ONE (22:27)
[2017-05-22] MEDS ORDERED: 1/2 NS 1000ml IV ONE (22:27)
[2017-05-23] VITALS (10 sets, daily range): BP systolic 72–138; BP diastolic 57–99
[2017-05-23] MEDS: Sodium Citrate 30ml ORAL SCH ×4 (00:01→18:32)
[2017-05-23] MEDS: Sodium Bicarbonate 100 ML in NS 1000ml 1,000 ML IV SCH ×3 (02:55→19:54)
[2017-05-23] MEDS: Aztreonam Inj 1 GM in D5W 55 ML IVPB SCH (03:40)
--- NOTE | 2017-05-23 04:45 | Progress Note ---
DATE: 05/22/2017 CARDIOLOGY PROGRESS NOTE SUBJECTIVE: The patient is seen and evaluated. Caregivers at bedside and all questions answered and discussed. They have been asked to relay information to family members. The patient remains on ventilator support. Her heart rate has stabilized with rare episodes of sinus tachycardia. Today, blood pressure 92/64, heart rate 68, respiratory rate 18, and the patient is afebrile. Echocardiogram was reviewed and notable for thick echogenic material in the pericardial space anteriorly. OBJECTIVE: VITAL SIGNS: Blood pressure 92/64, pulse 68, respirations 18, and afebrile. LUNGS: Bilateral breath sounds with rales and rhonchi, left greater than right. HEART: Distant S1 and S2. No appreciable rub. ABDOMEN: Obese. EXTREMITIES: With 2+ edema. LABORATORY DATA: White count 23, hemoglobin 10.6. Potassium 4.5, sodium 132, BUN 51, creatinine 1.3, and bicarbonate 13. Uric acid 12.4. Pro-natriuretic peptide 3000. TSH 2.1. IMPRESSION: 1. Sepsis with shock. 2. Healthcare-acquired pneumonia. 3. Ventilator-dependent respiratory failure. 4. Paroxysmal sinus tachycardia. 5. Prerenal azotemia. 6. Acute renal failure. 7. Hyponatremia, improved. 8. Metabolic acidosis, persists. 9. Hyperkalemia, resolved. 10. Acute on chronic diastolic congestive heart failure. 11. Pericardial effusion, likely which may be purulent material versus blood. PLAN: 1. Antimicrobials. 2. Ventilator support. 3. Did taper off IV fluids. 4. The patient is not stable at this time for any invasive cardiovascular procedure, however, she may require transfer to a higher level of care for pericardial drainage and possibly stripping once her sepsis is under better control and she is hemodynamically stable. Ramo Toure M.D. DR: ALIN JOB#: [id number] CC:
[2017-05-23 04:53] LABS: MEAN CORPUSCULAR HEMOGLOBIN 28.1 PG (27.0-31.0); MEAN CORPUSCULAR HGB CONC 32.8 G/DL (32.0-36.0); MEAN CORPUSCULAR VOLUME 86 FL (80-99); MEAN PLATELET VOLUME 6.1 FL (6.5-10.1); RED BLOOD COUNT 3.95 M/UL (4.20-5.40); RED CELL DISTRIBUTION WIDTH 14.1 % (11.6-14.8)
[2017-05-23 05:23] LABS: ALANINE AMINOTRANSFERASE 52 U/L (12-78); ALBUMIN/GLOBULIN RATIO 0.6 (1.0-2.7); ANION GAP 17 mmol/L (5-15); ASPARTATE AMINO TRANSFERASE 23 U/L (15-37); CALCIUM 8.1 MG/DL (8.5-10.1); CARBON DIOXIDE 18 MMOL/L (21-32); CHLORIDE 102 MMOL/L (98-107); CREATININE 1.6 MG/DL (0.55-1.30); CRP QUANT 7.9 mg/dL (0.00-0.90); GLOMERULAR FILTRATION RATE 32.6 mL/min (>60); PHOSPHORUS 8.4 MG/DL (2.5-4.9); POTASSIUM 2.9 MMOL/L (3.5-5.1); SODIUM 137 MMOL/L (136-145); TOTAL PROTEIN 6.4 G/DL (6.4-8.2); URIC ACID 13.3 MG/DL (2.6-7.2)
[2017-05-23 05:33] LABS: WHITE BLOOD COUNT 30.3 K/UL (4.8-10.8)
[2017-05-23 05:34] LABS: PLATELET COUNT 1073 K/UL (150-450)
[2017-05-23 07:27] LABS: ANISOCYTOSIS 1+; BAND NEUTROPHILS % (MANUAL) 0 % (0-8); BASOPHILS % (MANUAL) 0 % (0-2); EOSINOPHILS % (MANUAL) 0 % (0-3); HYPOCHROMASIA 1+; LYMPHOCYTES % (MANUAL) 11 % (20-45); NEUTROPHILS % (MANUAL) 86 % (45-75); PLATELET ESTIMATE INCREASED; PLATELET MORPHOLOGY NORMAL; TOTAL CELLS COUNTED 100
--- NOTE | 2017-05-23 08:02 | General Progress Note ---
Assessment/Plan Problem List: (1) Sepsis ICD Codes: A41.9 - Sepsis, unspecified organism SNOMED: 66447485 (2) Pneumonia ICD Codes: J18.9 - Pneumonia, unspecified organism SNOMED: 642412118 (3) Acute renal failure ICD Codes: N17.9 - Acute kidney failure, unspecified SNOMED: 03812339 (4) Pericardial effusion ICD Codes: I31.3 - Pericardial effusion (noninflammatory) SNOMED: 346621807 (5) Tracheostomy malfunction ICD Codes: J95.03 - Malfunction of tracheostomy stoma SNOMED: 66768494 (6) UTI (urinary tract infection) ICD Codes: N39.0 - Urinary tract infection, site not specified SNOMED: 58677835, 012150398 Qualifiers: Qualified Codes: N30.01 - Acute cystitis with hematuria Status: deteriorating Assessment/Plan ivf iv abx follow up cultures vent support resp rx monitor renal fxn poor prognosis. d/w caregiver. full code Subjective ROS Limited/Unobtainable: Yes Constitutional: Reports: malaise, weakness HEENT: Reports: no symptoms Cardiovascular: Reports: edema Respiratory: Reports: shortness of breath Gastrointestinal/Abdominal: Reports: abdomen distended Genitourinary: Reports: no symptoms Neurologic/Psychiatric: Reports: pre-existing deficit Endocrine: Reports: no symptoms Hematologic/Lymphatic: Reports: anemia Allergies: Coded Allergies: OLANZAPINE (Verified Allergy, Severe, RESP FAILURE, 11/25/13) VANCOMYCIN (Verified Allergy, Severe, 11/25/13) PIPERACILLIN (Verified Allergy, Intermediate, HIVES, 11/25/13) TAZOBACTAM (Verified Allergy, Intermediate, HIVES, 11/25/13) All Systems: reviewed and negative except above Subjective doing poorly. bp trending down. wbc worse ct/echo with thick fluid in the pericardium. minimal urine ouput. abdomen more distended. Objective Last 24 Hour Vital Signs Date Time Temp Pulse Resp B/P (MAP) Pulse Ox O2 Delivery O2 Flow Rate FiO2 05/23/17 05:29 102 18 05/23/17 04:21 97.0 05/23/17 04:00 96.4 94 18 97/65 100 Mechanical Ventilator 05/23/17 02:55 103 18 28 05/23/17 01:25 95 16 05/23/17 00:00 90 05/23/17 00:00 96.3 94 18 111/77 100 Mechanical Ventilator 28 05/22/17 23:04 96 18 28 05/22/17 22:07 98 22 100 Mechanical Ventilator 28 05/22/17 22:06 28 05/22/17 21:34 94 20 100 Mechanical Ventilator 28 05/22/17 21:19 98 18 28 05/22/17 20:00 91 05/22/17 20:00 96.6 94 18 110/76 100 Mechanical Ventilator 28 05/22/17 19:54 90 22 100 Mechanical Ventilator 28 05/22/17 19:54 28 05/22/17 19:53 90 20 100 Mechanical Ventilator 28 05/22/17 19:52 90 18 28 05/22/17 17:12 95 18 28 05/22/17 16:00 96 05/22/17 16:00 97.0 97 18 102/57 100 Mechanical Ventilator 28 05/22/17 15:53 94 16 28 05/22/17 13:14 99 20 28 05/22/17 12:00 90 05/22/17 11:38 28 05/22/17 11:36 97.0 95 19 109/94 99 Mechanical Ventilator 22 05/22/17 11:31 99 20 28 05/22/17 10:48 98 20 28 05/22/17 09:13 98 20 28 05/22/17 09:11 98 22 100 Mechanical Ventilator 28 05/22/17 09:00 98 20 100 Mechanical Ventilator 28 05/22/17 09:00 28 05/22/17 08:32 95 110/69 05/22/17 08:00 92 05/22/17 08:00 28 05/22/17 08:00 96.8 95 17 110/69 97 Mechanical Ventilator 22 Laboratory Tests 05/22/17 13:40: Arterial Blood pH 7.260L, Arterial Blood Partial Pressure CO2 26.6L, Arterial Blood Partial Pressure O2 103.8H, Arterial Blood HCO3 11.8L, Arterial Blood Oxygen Saturation 96.9, Arterial Blood Base Excess -13.7, Jayden Test Positive 05/23/17 03:25: White Blood Count 30.3*H, Red Blood Count 3.95L, Hemoglobin 11.1L, Hematocrit 33.8L, Mean Corpuscular Volume 86, Mean Corpuscular Hemoglobin 28.1, Mean Corpuscular Hemoglobin Concent 32.8, Red Cell Distribution Width 14.1, Platelet Count 1073*H, Mean Platelet Volume 6.1L, Neutrophils (%) (Auto) , Lymphocytes (% ) (Auto) , Monocytes (%) (Auto) , Eosinophils (%) (Auto) , Basophils (%) (Auto) , Differential Total Cells Counted 100, Neutrophils % (Manual) 86H, Lymphocytes % (Manual) 11L, Monocytes % (Manual) 3, Eosinophils % (Manual) 0, Basophils % ( Manual) 0, Band Neutrophils 0, Platelet Estimate IncreasedH, Platelet Morphology Normal, Hypochromasia 1+, Anisocytosis 1+, Sodium Level 137, Potassium Level 2.9L, Chloride Level 102, Carbon Dioxide Level 18L, Anion Gap 17H, Blood Urea Nitrogen 49H, Creatinine 1.6H, Estimat Glomerular Filtration Rate 32.6, Glucose Level 215H, Uric Acid 13.3H, Calcium Level 8.1L, Phosphorus Level 8.4H, Magnesium Level 2.0, Total Bilirubin 0.4, Gamma Glutamyl Transpeptidase 176H, Aspartate Amino Transf (AST/SGOT) 23, Alanine Aminotransferase (ALT/SGPT) 52, Alkaline Phosphatase 124H, Total Creatine Kinase 8L, C-Reactive Protein, Quantitative 7.9H, Pro-B-Type Natriuretic Peptide 4595H, Total Protein 6.4, Albumin 2.5L, Globulin 3.9, Albumin/Globulin Ratio 0.6L Height (Feet): 5 Height (Inches): 0.00 Weight (Pounds): 150 General Appearance: lethargic, obese Neck: supple Cardiovascular: tachycardia Respiratory/Chest: rhonchi - bilaterally Abdomen: soft, distended Edema: severe edema Neurologic: unresponsive, aphasia OCHOA BISWAS May 23, 2017 08:02
--- NOTE | 2017-05-23 08:28 | Pulmonology Progress Note ---
Assessment/Plan Assessment/Plan IMPRESSION respiratory failure possible UTI possible sepsis ARF/CRF hyperkalemia pericardial effusion possible renal cyst vs mass hypertension (now with normal BP off meds) chronic encephalopathy hypothyroidism diabetes possible cirrhosis atrial fib hyperuricemia pain PLAN ventilator management- hyperventilate check ABG echo noted; will need pericardial evaluation when stable MR abdomen and ultrasound when stable sliding scale and monitor sugars feeds as tolerated- need to change per renal with electrolyte imbalance does not respond to reglan monitor for residuals GT change iv hydration free water GI/renal/ID/cards evaluation monitor clinically empiric antibiotics (penicillin allergic) ID aware of increase in WBC watch platelets impression, plan, and exam edited and reviewed in detail care discussed with RN Subjective ROS Limited/Unobtainable: Yes Allergies: Coded Allergies: OLANZAPINE (Verified Allergy, Severe, RESP FAILURE, 11/25/13) VANCOMYCIN (Verified Allergy, Severe, 11/25/13) PIPERACILLIN (Verified Allergy, Intermediate, HIVES, 11/25/13) TAZOBACTAM (Verified Allergy, Intermediate, HIVES, 11/25/13) Subjective overnight events reviewed labs noted d/w sister at length update given d/w consultants Objective Last 24 Hour Vital Signs Date Time Temp Pulse Resp B/P (MAP) Pulse Ox O2 Delivery O2 Flow Rate FiO2 05/23/17 07:08 100 18 05/23/17 05:29 102 18 05/23/17 04:21 97.0 05/23/17 04:00 96.4 94 18 97/65 100 Mechanical Ventilator 05/23/17 04:00 102 05/23/17 02:55 103 18 05/23/17 01:25 95 16 05/23/17 00:00 90 05/23/17 00:00 96.3 94 18 111/77 100 Mechanical Ventilator 05/22/17 23:04 96 18 28 05/22/17 22:07 98 22 100 Mechanical Ventilator 05/22/17 22:06 28 05/22/17 21:34 94 20 100 Mechanical Ventilator 05/22/17 21:19 98 18 28 05/22/17 20:00 91 05/22/17 20:00 96.6 94 18 110/76 100 Mechanical Ventilator 05/22/17 19:54 90 22 100 Mechanical Ventilator 05/22/17 19:54 28 05/22/17 19:53 90 20 100 Mechanical Ventilator 28 05/22/17 19:52 90 18 28 05/22/17 17:12 95 18 28 05/22/17 16:00 96 05/22/17 16:00 97.0 97 18 102/57 100 Mechanical Ventilator 28 05/22/17 15:53 94 16 28 05/22/17 13:14 99 20 28 05/22/17 12:00 90 05/22/17 11:38 28 05/22/17 11:36 97.0 95 19 109/94 99 Mechanical Ventilator 22 05/22/17 11:31 99 20 28 05/22/17 10:48 98 20 28 05/22/17 09:13 98 20 28 05/22/17 09:11 98 22 100 Mechanical Ventilator 05/22/17 09:00 98 20 100 Mechanical Ventilator 28 05/22/17 09:00 28 05/22/17 08:32 95 110/69 Objective WDWN female chronically ill NAD clear breath sounds bilaterally without rhonchi or wheeze [id number] without MRG NABS nontender no HSM; protuberant; GT no CC some edema diffusely short neck unresponsive Microbiology Date/Time Source Procedure Growth Status 05/21/17 13:15 Blood Blood Culture - Preliminary NO GROWTH AFTER 24 HOURS Resulted 05/21/17 13:10 Blood Blood Culture - Preliminary NO GROWTH AFTER 24 HOURS Resulted 05/21/17 13:16 Urine,Clean Catch Urine Culture - Final Klebsiella Pneumoniae Complete Laboratory Tests 05/22/17 13:40: Arterial Blood pH 7.260L, Arterial Blood Partial Pressure CO2 26.6L, Arterial Blood Partial Pressure O2 103.8H, Arterial Blood HCO3 11.8L, Arterial Blood Oxygen Saturation 96.9, Arterial Blood Base Excess -13.7, Jayden Test Positive 05/23/17 03:25: White Blood Count 30.3*H, Red Blood Count 3.95L, Hemoglobin 11.1L, Hematocrit 33.8L, Mean Corpuscular Volume 86, Mean Corpuscular Hemoglobin 28.1, Mean Corpuscular Hemoglobin Concent 32.8, Red Cell Distribution Width 14.1, Platelet Count 1073*H, Mean Platelet Volume 6.1L, Neutrophils (%) (Auto) , Lymphocytes (% ) (Auto) , Monocytes (%) (Auto) , Eosinophils (%) (Auto) , Basophils (%) (Auto) , Differential Total Cells Counted 100, Neutrophils % (Manual) 86H, Lymphocytes % (Manual) 11L, Monocytes % (Manual) 3, Eosinophils % (Manual) 0, Basophils % ( Manual) 0, Band Neutrophils 0, Platelet Estimate IncreasedH, Platelet Morphology Normal, Hypochromasia 1+, Anisocytosis 1+, Sodium Level 137, Potassium Level 2.9L, Chloride Level 102, Carbon Dioxide Level 18L, Anion Gap 17H, Blood Urea Nitrogen 49H, Creatinine 1.6H, Estimat Glomerular Filtration Rate 32.6, Glucose Level 215H, Uric Acid 13.3H, Calcium Level 8.1L, Phosphorus Level 8.4H, Magnesium Level 2.0, Total Bilirubin 0.4, Gamma Glutamyl Transpeptidase 176H, Aspartate Amino Transf (AST/SGOT) 23, Alanine Aminotransferase (ALT/SGPT) 52, Alkaline Phosphatase 124H, Total Creatine Kinase 8L, C-Reactive Protein, Quantitative 7.9H, Pro-B-Type Natriuretic Peptide 4595H, Total Protein 6.4, Albumin 2.5L, Globulin 3.9, Albumin/Globulin Ratio 0.6L Current Medications Medications (Trade) Dose Ordered Sig/Alex Route PRN Reason Start Time Stop Time Status Last Admin Dose Admin Acetaminophen (Tylenol) 650 mg Q6H PRN ORAL Mild Pain/Temp > 100.5 05/23/17 03:00 06/22/17 02:59 05/23/17 03:22 Albuterol Sulfate (Proventil) 2.5 mg BIDRT HHN 05/21/17 22:00 05/26/17 21:59 05/22/17 21:32 Artificial Tears (Akwa-Tears) 1 drop TID BOTH EYES 05/22/17 09:00 06/21/17 08:59 05/22/17 18:15 Ascorbic Acid (Vitamin C) 1,000 mg DAILY GT 05/22/17 09:00 06/21/17 08:59 05/22/17 08:32 Atenolol (Tenormin) 12.5 mg DAILY ORAL 05/22/17 09:00 06/21/17 08:59 05/22/17 08:32 Aztreonam 1 gm/ Dextrose 55 ml @ 110 mls/hr Q12HR@0400,1600 IVPB 05/22/17 04:00 05/29/17 03:59 05/23/17 03:40 Bisacodyl (Dulcolax) 5 mg DAILYPRN PRN RECTAL Constipation 05/22/17 11:30 06/21/17 11:29 Ipratropium [place] (Atrovent) 500 mcg BID HHN 05/22/17 09:00 05/27/17 08:59 05/22/17 19:52 Lactobacillus Acidophilus (Culturelle) 1 tab DAILY GT 05/22/17 09:00 06/21/17 08:59 05/22/17 08:31 Levothyroxine Sodium (Synthroid) 75 mcg ACBREAKFAST GT 05/22/17 06:30 06/21/17 06:29 05/23/17 06:17 Levothyroxine Sodium (Synthroid) 100 mcg ACBREAKFAST GT 05/22/17 06:30 06/21/17 06:29 05/23/17 06:16 Multivitamins (Multivitamins W/ Minerals 15ml Liquid) 15 ml DAILY GT 05/22/17 09:00 06/21/17 08:59 05/22/17 08:31 Pantoprazole (Protonix) 40 mg EVERY 12 HOURS IVP 05/22/17 21:00 06/21/17 20:59 05/22/17 20:58 Sodium Bicarbonate 100 ml/Sodium Chloride 1,100 ml @ 100 mls/hr Q11H IV 05/22/17 15:45 06/21/17 15:44 05/23/17 02:55 Sodium Citrate (Bicitra) 30 ml EVERY 6 HOURS ORAL 05/22/17 18:00 06/21/17 17:59 05/23/17 06:16 ANTIONETTE RODRIGUEZ May 23, 2017 08:28
[2017-05-23] MEDS ORDERED: Norco 5mg/325mg tab ORAL PRN (08:30)
[2017-05-23] MEDS ORDERED: Heparin 5000 units/ml inj SUBQ SCH (09:00)
[2017-05-23] MEDS: Atenolol 25mg tab ORAL SCH (09:00)
[2017-05-23] MEDS: Ascorbic Acid 500mg tab GT SCH (09:20)
[2017-05-23] MEDS: Pantoprazole Inj IVP SCH ×2 (09:20→21:09)
[2017-05-23] MEDS: Lactobacillus-GG tablet GT SCH (09:20)
[2017-05-23] MEDS: Multivitamins W/Minerals 15 ML UDC GT SCH (09:20)
[2017-05-23] MEDS: Artificial Tears 1.4% Op Soln BOTH EYES SCH ×2 (09:23→12:48)
[2017-05-23] MEDS: Albuterol ud Inhalation HHN SCH ×2 (09:29→21:24)
[2017-05-23] MEDS: Ipratropium 0.02% Inh Soln 2.5ml UD HHN SCH (09:29)
--- NOTE | 2017-05-23 09:53 | Nephrology Progress Note ---
Assessment/Plan Problem List: (1) Acute renal failure (2) Sepsis (3) UTI (urinary tract infection) (4) Tracheostomy dependence Assessment -. Acute renal failure due to ? sepsis , intravascular volume depletion, low BP... Cr rising- Urine out put down- -. Hypoalbuminemia: - Increase loss: NS - Decrease production: Nutritional -. Shock, sepsis, pneumonia, pericardial effusion. -. History of hypertension, now with low blood pressure. -. Hyperkalemia. improved -. Hyponatremia. improved -. Prerenal azotemia. -. Respiratory failure with tracheostomy. -. Anasarca with ascites. due to low Albumin -. HypoThyroidism . Plan STOP ALL NON FORMULARY SUPPLEMENTS- Diet to Nepro- Amphojel as Phos binder- Antibiotics- Bicitra GT- monitor bicarbs.. IV protonix Albumin 5% 500cc today Pulmonary support- Keep BP in check Monitor renal parameters- Avoid nephrotoxics 24 H urine for proteins pending per orders talked to SOREN private rn medicare and Dr De León Subjective ROS Limited/Unobtainable: Yes Objective Objective Last 24 Hour Vital Signs Date Time Temp Pulse Resp B/P (MAP) Pulse Ox O2 Delivery O2 Flow Rate FiO2 05/23/17 09:29 28 05/23/17 09:29 101 16 100 Mechanical Ventilator 05/23/17 09:26 100 18 05/23/17 09:00 99 91/69 05/23/17 07:08 100 18 28 05/23/17 05:29 102 18 05/23/17 04:21 97.0 05/23/17 04:00 96.4 94 18 97/65 100 Mechanical Ventilator 05/23/17 04:00 102 05/23/17 02:55 103 18 05/23/17 01:25 95 16 28 05/23/17 00:00 90 05/23/17 00:00 96.3 94 18 111/77 100 Mechanical Ventilator 05/22/17 23:04 96 18 28 05/22/17 22:07 98 22 100 Mechanical Ventilator 05/22/17 22:06 28 05/22/17 21:34 94 20 100 Mechanical Ventilator 28 05/22/17 21:19 98 18 28 05/22/17 20:00 91 05/22/17 20:00 96.6 94 18 110/76 100 Mechanical Ventilator 05/22/17 19:54 90 22 100 Mechanical Ventilator 28 05/22/17 19:54 28 05/22/17 19:53 90 20 100 Mechanical Ventilator 05/22/17 19:52 90 18 28 05/22/17 17:12 95 18 05/22/17 16:00 96 05/22/17 16:00 97.0 97 18 102/57 100 Mechanical Ventilator 05/22/17 15:53 94 16 05/22/17 13:14 99 20 05/22/17 12:00 90 05/22/17 11:38 28 05/22/17 11:36 97.0 95 19 109/94 99 Mechanical Ventilator 22 05/22/17 11:31 99 20 05/22/17 10:48 98 20 28 Laboratory Tests 05/22/17 13:40: Arterial Blood pH 7.260L, Arterial Blood Partial Pressure CO2 26.6L, Arterial Blood Partial Pressure O2 103.8H, Arterial Blood HCO3 11.8L, Arterial Blood Oxygen Saturation 96.9, Arterial Blood Base Excess -13.7, Jayden Test Positive 05/23/17 03:25: White Blood Count 30.3*H, Red Blood Count 3.95L, Hemoglobin 11.1L, Hematocrit 33.8L, Mean Corpuscular Volume 86, Mean Corpuscular Hemoglobin 28.1, Mean Corpuscular Hemoglobin Concent 32.8, Red Cell Distribution Width 14.1, Platelet Count 1073*H, Mean Platelet Volume 6.1L, Neutrophils (%) (Auto) , Lymphocytes (% ) (Auto) , Monocytes (%) (Auto) , Eosinophils (%) (Auto) , Basophils (%) (Auto) , Differential Total Cells Counted 100, Neutrophils % (Manual) 86H, Lymphocytes % (Manual) 11L, Monocytes % (Manual) 3, Eosinophils % (Manual) 0, Basophils % ( Manual) 0, Band Neutrophils 0, Platelet Estimate IncreasedH, Platelet Morphology Normal, Hypochromasia 1+, Anisocytosis 1+, Sodium Level 137, Potassium Level 2.9L, Chloride Level 102, Carbon Dioxide Level 18L, Anion Gap 17H, Blood Urea Nitrogen 49H, Creatinine 1.6H, Estimat Glomerular Filtration Rate 32.6, Glucose Level 215H, Uric Acid 13.3H, Calcium Level 8.1L, Phosphorus Level 8.4H, Magnesium Level 2.0, Total Bilirubin 0.4, Gamma Glutamyl Transpeptidase 176H, Aspartate Amino Transf (AST/SGOT) 23, Alanine Aminotransferase (ALT/SGPT) 52, Alkaline Phosphatase 124H, Total Creatine Kinase 8L, C-Reactive Protein, Quantitative 7.9H, Pro-B-Type Natriuretic Peptide 4595H, Total Protein 6.4, Albumin 2.5L, Globulin 3.9, Albumin/Globulin Ratio 0.6L Height (Feet): 5 Height (Inches): 0.00 Weight (Pounds): 150 General Appearance: no apparent distress EENT: other - trach Cardiovascular: tachycardia Respiratory/Chest: decreased breath sounds Abdomen: absent bowel sounds Extremities: other - edema + QIANA SALGADO May 23, 2017 09:53
[2017-05-23] MEDS: KCl 10% 40mEq/30ml liquid NG SCH ×2 (11:30→14:18)
[2017-05-23] MEDS: Aluminum Hydroxide Gel Susp 15ml GT SCH ×3 (11:31→23:48)
--- NOTE | 2017-05-23 12:09 | Infectious Diseases Prog Note ---
Assessment/Plan Assessment/Plan antibiotics : aztreonam A 1. klebsiella UTI 2. increasing leucocytosis 3. respiratory failure 4. DM 5. HTN 6. anoxic brain injury P 1. d/c aztreonam 2. start bactrim, flagyl 3. stool for c.diff 4. will follow up cultures Subjective ROS Limited/Unobtainable: Yes Allergies: Coded Allergies: OLANZAPINE (Verified Allergy, Severe, RESP FAILURE, 11/25/13) VANCOMYCIN (Verified Allergy, Severe, 11/25/13) PIPERACILLIN (Verified Allergy, Intermediate, HIVES, 11/25/13) TAZOBACTAM (Verified Allergy, Intermediate, HIVES, 11/25/13) Objective Vital Signs Last 24 Hour Vital Signs Date Time Temp Pulse Resp B/P (MAP) Pulse Ox O2 Delivery O2 Flow Rate FiO2 05/23/17 10:50 105 18 28 05/23/17 09:46 106 21 99 Mechanical Ventilator 28 05/23/17 09:29 28 05/23/17 09:29 101 16 100 Mechanical Ventilator 05/23/17 09:26 100 18 28 05/23/17 09:00 99 91/69 05/23/17 08:00 97.2 99 17 91/69 99 Mechanical Ventilator 28 05/23/17 07:08 100 18 28 05/23/17 05:29 102 18 28 05/23/17 04:21 97.0 05/23/17 04:00 96.4 94 18 97/65 100 Mechanical Ventilator 28 05/23/17 04:00 102 05/23/17 02:55 103 18 28 05/23/17 01:25 95 16 28 05/23/17 00:00 90 05/23/17 00:00 96.3 94 18 111/77 100 Mechanical Ventilator 28 05/22/17 23:04 96 18 28 05/22/17 22:07 98 22 100 Mechanical Ventilator 28 05/22/17 22:06 28 05/22/17 21:34 94 20 100 Mechanical Ventilator 28 05/22/17 21:19 98 18 28 05/22/17 20:00 91 05/22/17 20:00 96.6 94 18 110/76 100 Mechanical Ventilator 28 05/22/17 19:54 90 22 100 Mechanical Ventilator 28 05/22/17 19:54 28 05/22/17 19:53 90 20 100 Mechanical Ventilator 28 05/22/17 19:52 90 18 28 05/22/17 17:12 95 18 28 05/22/17 16:00 96 05/22/17 16:00 97.0 97 18 102/57 100 Mechanical Ventilator 28 05/22/17 15:53 94 16 28 05/22/17 13:14 99 20 28 Height (Feet): 5 Height (Inches): 0.00 Weight (Pounds): 150 HEENT: status post trach Respiratory/Chest: lungs clear Cardiovascular: normal rate, regular rhythm, no gallop/murmur Abdomen: soft, non tender, other - GT Extremities: other - + edema bilaterally Microbiology Date/Time Source Procedure Growth Status 05/21/17 13:15 Blood Blood Culture - Preliminary NO GROWTH AFTER 24 HOURS Resulted 05/21/17 13:10 Blood Blood Culture - Preliminary NO GROWTH AFTER 24 HOURS Resulted 05/23/17 09:45 Sputum Gram Stain - Final Resulted 05/23/17 09:45 Sputum Sputum Culture Pending Resulted 05/21/17 13:16 Urine,Clean Catch Urine Culture - Final Klebsiella Pneumoniae Complete Laboratory Tests Test 05/22/17 13:40 05/23/17 03:25 Arterial Blood pH 7.260 (7.350-7.450) Arterial Blood Partial Pressure CO2 26.6 mmHg (35.0-45.0) L Arterial Blood Partial Pressure O2 103.8 mmHg (75.0-100.0) H Arterial Blood HCO3 11.8 mmol/L (22.0-26.0) L Arterial Blood Oxygen Saturation 96.9 % (92.0-98.0) Arterial Blood Base Excess -13.7 Jayden Test Positive White Blood Count 30.3 K/UL (4.8-10.8) *H Red Blood Count 3.95 M/UL (4.20-5.40) L Hemoglobin 11.1 G/DL (12.0-16.0) L Hematocrit 33.8 % (37.0-47.0) L Mean Corpuscular Volume 86 FL (80-99) Mean Corpuscular Hemoglobin 28.1 PG (27.0-31.0) Mean Corpuscular Hemoglobin Concent 32.8 G/DL (32.0-36.0) Red Cell Distribution Width 14.1 % (11.6-14.8) Platelet Count 1073 K/UL (150-450) *H Mean Platelet Volume 6.1 FL (6.5-10.1) L Neutrophils (%) (Auto) % (45.0-75.0) Lymphocytes (%) (Auto) % (20.0-45.0) Monocytes (%) (Auto) % (1.0-10.0) Eosinophils (%) (Auto) % (0.0-3.0) Basophils (%) (Auto) % (0.0-2.0) Differential Total Cells Counted 100 Neutrophils % (Manual) 86 % (45-75) H Lymphocytes % (Manual) 11 % (20-45) L Monocytes % (Manual) 3 % (1-10) Eosinophils % (Manual) 0 % (0-3) Basophils % (Manual) 0 % (0-2) Band Neutrophils 0 % (0-8) Platelet Estimate Increased H Platelet Morphology Normal Hypochromasia 1+ Anisocytosis 1+ Sodium Level 137 MMOL/L (136-145) Potassium Level 2.9 MMOL/L (3.5-5.1) L Chloride Level 102 MMOL/L (98-107) Carbon Dioxide Level 18 MMOL/L (21-32) L Anion Gap 17 mmol/L (5-15) H Blood Urea Nitrogen 49 mg/dL (7-18) H Creatinine 1.6 MG/DL (0.55-1.30) H Estimat Glomerular Filtration Rate 32.6 mL/min (>60) Glucose Level 215 MG/DL (74-106) H Uric Acid 13.3 MG/DL (2.6-7.2) H Calcium Level 8.1 MG/DL (8.5-10.1) L Phosphorus Level 8.4 MG/DL (2.5-4.9) H Magnesium Level 2.0 MG/DL (1.8-2.4) Total Bilirubin 0.4 MG/DL (0.2-1.0) Gamma Glutamyl Transpeptidase 176 U/L (5-85) H Aspartate Amino Transf (AST/SGOT) 23 U/L (15-37) Alanine Aminotransferase (ALT/SGPT) 52 U/L (12-78) Alkaline Phosphatase 124 U/L (46-116) H Total Creatine Kinase 8 U/L (26-308) L C-Reactive Protein, Quantitative 7.9 mg/dL (0.00-0.90) H Pro-B-Type Natriuretic Peptide 4595 pg/mL (0-125) H Total Protein 6.4 G/DL (6.4-8.2) Albumin 2.5 G/DL (3.4-5.0) L Globulin 3.9 g/dL Albumin/Globulin Ratio 0.6 (1.0-2.7) L ERIKA DICKERSON May 23, 2017 12:09
[2017-05-23] MEDS ORDERED: Bactrim SS Tab ORAL SCH (13:30)
[2017-05-23] MEDS ORDERED: metroNIDAZOLE 500mg tab ORAL SCH (14:00)
--- NOTE | 2017-05-23 14:04 | Diagnostic Imaging Report ---
Indication: COUGH Technique: One view of the chest Comparison: 05/21/2017 Findings: There is apparent enlargement of the cardiac silhouette. There is blunting of the right costophrenic sulcus, which was not evident previously. Retrocardiac opacity, obscuration of the left hemidiaphragm, and central air bronchograms are again demonstrated on the left. Left upper lung remains clear. Tracheostomy remains Impression: New finding of blunting of the right costophrenic sulcus, could indicate a small pleural effusion Stable retrocardiac opacification, likely atelectasis, consolidation, pleural fluid, or combination of these Apparent enlargement of the cardiac silhouette again demonstrated. Note that recent CT indicated that this is primarily due to pericardial fluid and abundant epicardial fat rather than actual cardiac chamber enlargement
[2017-05-23] MEDS ORDERED: Tubing IV Secondary IV ONE (16:20)
[2017-05-23] MEDS ORDERED: Sterile Water Irrig 1000ml IRRIG ONE (16:20)
[2017-05-23] MEDS ORDERED: Adenosine 6mg/2ml Inj IVP ONE ×2 (16:35→17:15)
--- NOTE | 2017-05-23 16:38 | Diagnostic Imaging Report ---
Indications: Needs long-term IV access Technique: Procedure performed at bedside. Procedural timeout performed. Ultrasound confirms patent compressible right cephalic vein. Total sterile technique, including sterile probe cover and sterile gel, sterile gloves, hand hygiene, hat, mask,, sterile gown, large sterile drape, and preparation with 2% chlorhexidine utilized. Local anesthesia with 1% lidocaine. Under real-time ultrasound guidance, puncture cephalic vein using 21-gauge needle, passage 0.018 guidewire, exchange for 5 Guyanese peel-away sheath. 5 [place] Bard dual-lumen power PICC cut to 42 cm. It was inserted through the peel-away sheath. Peel-away sheath and guidewire removed. Catheter fixed to the skin. Both catheter ports aspirated and flushed. Patient tolerated procedure well, without immediate complication. Followup chest x-ray obtained, documents catheter tip position at the cavoatrial junction Impression: Successful bedside placement of right arm PICC under sonographic guidance, as described above.
--- NOTE | 2017-05-23 17:34 | Diagnostic Imaging Report ---
Indication: COUGH, atrial fibrillation status post PICC placement, interim PICC withdrawal Technique: One view of the chest Comparison: One half hour earlier Findings: Interim retraction of the previously demonstrated PICC, tip now projecting at the level of the innominate venous confluence or upstream superior vena cava, certainly outside the right atrium. Other findings are unchanged. Impression: Withdrawn and now certainly extracardiac position of PICC Findings discussed by phone with Dr. Evans at the time of interpretation
[2017-05-23] MEDS ORDERED: AMIODARONE 150 MG/100 ML IV ONE (17:45)
[2017-05-23] MEDS ORDERED: Amiodarone 900 MG in D5W 500ml 482 ML IV SCH (18:00)
[2017-05-23 18:54] LABS: TOTAL PROTEIN 24HR URINE 114.4 G/24HR (< 0.1)
[2017-05-23] MEDS ORDERED: Acetaminophen 650mg/20.3ml GT PRN (19:15)
[2017-05-23] MEDS ORDERED: NS 250 ML IVPB SCH (20:45)
[2017-05-23] MEDS: [UNRECOGNIZED DRUG - OTHER] BOTH EYES SCH (21:03)
[2017-05-23] MEDS: SYSTANE BOTH EYES SCH (21:04)
[2017-05-23] MEDS: Bactrim SS Tab GT SCH (21:09)
[2017-05-23] MEDS: Heparin 5000 units/ml inj SUBQ SCH (21:10)
[2017-05-23] MEDS ORDERED: Sodium Chloride 500ML 250 ML IV SCH (21:15)
[2017-05-23] MEDS: metroNIDAZOLE 500mg tab GT SCH (22:08)
--- NOTE | 2017-05-23 23:40 | General Progress Note ---
Assessment/Plan Assessment/Plan Assessment - encephalopathy - Resp failure - Trach - dysphagia - PEG - edema / anasarca - UTI/PNA - worsening leukocytosis - azotemia - pericardial effusion - marked thrombocytosis - poor Px Recommendations - continue TF - now on nephro - abx - cardiology f/u - hold off on GT change until stable - check C Diff - Agree with flagyl Subjective Allergies: Coded Allergies: OLANZAPINE (Verified Allergy, Severe, RESP FAILURE, 11/25/13) VANCOMYCIN (Verified Allergy, Severe, 11/25/13) PIPERACILLIN (Verified Allergy, Intermediate, HIVES, 11/25/13) TAZOBACTAM (Verified Allergy, Intermediate, HIVES, 11/25/13) Subjective doing poorly transferred to ICU due to tachyarrhythmias (+) diarrhea d/w RN Objective Last 24 Hour Vital Signs Date Time Temp Pulse Resp B/P (MAP) Pulse Ox O2 Delivery O2 Flow Rate FiO2 05/23/17 23:12 97 16 28 05/23/17 21:45 94 16 100 Mechanical Ventilator 05/23/17 21:25 28 05/23/17 21:25 94 16 100 Mechanical Ventilator 05/23/17 21:23 94 16 28 05/23/17 20:00 97 05/23/17 20:00 97 18 84/57 100 Mechanical Ventilator 05/23/17 19:30 97 19 28 05/23/17 19:00 97.7 101 18 72/57 99 Mechanical Ventilator 05/23/17 17:39 200 05/23/17 16:37 170 05/23/17 16:30 103 18 05/23/17 16:00 98 05/23/17 16:00 97.9 76 23 138/99 98 Mechanical Ventilator 05/23/17 14:55 101 18 28 05/23/17 13:30 99 18 28 05/23/17 12:00 103 05/23/17 12:00 96.8 98 16 114/71 99 Mechanical Ventilator 05/23/17 10:50 105 18 28 05/23/17 09:46 106 21 99 Mechanical Ventilator 28 05/23/17 09:29 28 05/23/17 09:29 101 16 100 Mechanical Ventilator 28 05/23/17 09:26 100 18 28 05/23/17 09:00 99 91/69 05/23/17 08:00 97.2 99 17 91/69 99 Mechanical Ventilator 28 05/23/17 08:00 100 05/23/17 07:08 100 18 28 05/23/17 05:29 102 18 28 05/23/17 04:21 97.0 05/23/17 04:00 96.4 94 18 97/65 100 Mechanical Ventilator 28 05/23/17 04:00 102 05/23/17 02:55 103 18 28 05/23/17 01:25 95 16 28 05/23/17 00:00 90 05/23/17 00:00 96.3 94 18 111/77 100 Mechanical Ventilator 28 Intake and Output 05/23/17 05/24/17 19:00 07:00 Intake Total 1510 ml Balance 1510 ml Free Water 60 ml IV Total 1300 ml Tube Feeding 150 ml Laboratory Tests 05/23/17 03:25: White Blood Count 30.3*H, Red Blood Count 3.95L, Hemoglobin 11.1L, Hematocrit 33.8L, Mean Corpuscular Volume 86, Mean Corpuscular Hemoglobin 28.1, Mean Corpuscular Hemoglobin Concent 32.8, Red Cell Distribution Width 14.1, Platelet Count 1073*H, Mean Platelet Volume 6.1L, Neutrophils (%) (Auto) , Lymphocytes (% ) (Auto) , Monocytes (%) (Auto) , Eosinophils (%) (Auto) , Basophils (%) (Auto) , Differential Total Cells Counted 100, Neutrophils % (Manual) 86H, Lymphocytes % (Manual) 11L, Monocytes % (Manual) 3, Eosinophils % (Manual) 0, Basophils % ( Manual) 0, Band Neutrophils 0, Platelet Estimate IncreasedH, Platelet Morphology Normal, Hypochromasia 1+, Anisocytosis 1+, Sodium Level 137, Potassium Level 2.9L, Chloride Level 102, Carbon Dioxide Level 18L, Anion Gap 17H, Blood Urea Nitrogen 49H, Creatinine 1.6H, Estimat Glomerular Filtration Rate 32.6, Glucose Level 215H, Uric Acid 13.3H, Calcium Level 8.1L, Phosphorus Level 8.4H, Magnesium Level 2.0, Total Bilirubin 0.4, Gamma Glutamyl Transpeptidase 176H, Aspartate Amino Transf (AST/SGOT) 23, Alanine Aminotransferase (ALT/SGPT) 52, Alkaline Phosphatase 124H, Total Creatine Kinase 8L, C-Reactive Protein, Quantitative 7.9H, Pro-B-Type Natriuretic Peptide 4595H, Total Protein 6.4, Albumin 2.5L, Globulin 3.9, Albumin/Globulin Ratio 0.6L Height (Feet): 5 Height (Inches): 0.00 Weight (Pounds): 150 Objective Obese WW NCAT supple Chest: coarse BS RRR obese, soft abd, (+) GT (++) edema / anasarca OBS JILL WHITNEY May 23, 2017 23:40
[2017-05-23] MEDS: Sodium Citrate 30ml GT SCH (23:47)
[2017-05-24] VITALS (27 sets, daily range): BP systolic 85–137; BP diastolic 50–97
--- NOTE | 2017-05-24 03:45 | Progress Note ---
DATE: 05/23/2017 CARDIOLOGY PROGRESS NOTE CRITICAL CARE TIME: 85 minutes. TIME OF EVALUATION: 4:30 to 5:40 p.m. on 05/23/2017. SUBJECTIVE: The patient was seen and evaluated emergently after developing rapid SVT and atrial fibrillation with rates up to 200 following placement of a PICC line. The patient's x-rays were reviewed and the case discussed with the interventional radiologist. It was felt that the PICC line should be pulled back approximately 3 cm than it was. Repeat chest x-ray was reviewed and no signs of pneumothorax noted. The patient was given 6 mg IV adenosine without response. The patient was transferred to the intensive care unit and continued on ventilator support. The patient's sister was apprised in detail of current clinical situation. The patient was again given 12 mg IV adenosine. The patient developed complete heart block for a short time and stabilized with heart rates slower, but subsequently returning to rapid atrial fibrillation at rates up to 180. The patient was then reassessed and started on IV amiodarone drip. Sinus rhythm was achieved with frequent atrial ectopic. The patient's oxygen saturations were reviewed in detail during this process and remained stable with no signs of increased PIP from the ventilator readings. OBJECTIVE: VITAL SIGNS: Presently, blood pressure 112/50, pulse 103, respirations 24, and afebrile. GENERAL: Poorly responsive. LUNGS: Bilateral breath sounds. HEART: Regular rhythm and rate. Normal S1 and S2. ABDOMEN: Soft. EXTREMITIES: A 1 to 2+ dependent edema. LABORATORY STUDIES: White count 30 and hemoglobin 11. Potassium 2.9, BUN 49, and creatinine 1.6. Pro-natriuretic peptide is 4500. Albumin 2.5. IMPRESSION: 1. Paroxysmal atrial fibrillation and supraventricular tachycardia with rapid ventricular response. 2. Sepsis. 3. Shock. 4. Severe leukocytosis. 5. Hypokalemia. 6. Severe protein-calorie malnutrition. 7. Acute renal failure. 8. Ventilator-dependent respiratory failure. 9. Pericardial effusion, possibly with purulent exudate, critical and guarded. PLAN: 1. Amiodarone drip for now. 2. Potassium replacement. 3. Broad-spectrum antibiotics. 4. Ventilator support. 5. If stabilizes hemodynamically, we will transfer to a tertiary care facility for pericardial drainage. 6. Discussed in detail with the patient's sister and conservator who is considering change in code status. Ramo Toure M.D. DR: RICKIE JOB#: [id number] CC:
[2017-05-24 05:02] LABS: MEAN CORPUSCULAR HEMOGLOBIN 28.5 PG (27.0-31.0); MEAN CORPUSCULAR HGB CONC 33.8 G/DL (32.0-36.0); MEAN CORPUSCULAR VOLUME 85 FL (80-99); MEAN PLATELET VOLUME 5.9 FL (6.5-10.1); PLATELET COUNT 907 K/UL (150-450); RED BLOOD COUNT 3.48 M/UL (4.20-5.40); RED CELL DISTRIBUTION WIDTH 14.4 % (11.6-14.8); WHITE BLOOD COUNT 3.8 K/UL (4.8-10.8)
[2017-05-24 05:26] LABS: INR 1.3 (0.9-1.1); PROTHROMBIN TIME 13.6 SEC (9.30-11.50)
[2017-05-24 05:37] LABS: ALANINE AMINOTRANSFERASE 111 U/L (12-78); ALBUMIN/GLOBULIN RATIO 0.8 (1.0-2.7); ANION GAP 16 mmol/L (5-15); ASPARTATE AMINO TRANSFERASE 63 U/L (15-37); CARBON DIOXIDE 23 MMOL/L (21-32); CHLORIDE 108 MMOL/L (98-107); CREATININE 1.7 MG/DL (0.55-1.30); GLOMERULAR FILTRATION RATE 30.4 mL/min (>60); POTASSIUM 3.4 MMOL/L (3.5-5.1); SODIUM 147 MMOL/L (136-145); TOTAL PROTEIN 5.7 G/DL (6.4-8.2); URIC ACID 13.9 MG/DL (2.6-7.2)
[2017-05-24 05:42] LABS: CRP QUANT 8.4 mg/dL (0.00-0.90); MAGNESIUM 2.2 MG/DL (1.8-2.4); PHOSPHORUS 7.6 MG/DL (2.5-4.9)
[2017-05-24] MEDS: Sodium Citrate 30ml GT SCH (05:54)
[2017-05-24] MEDS: Aluminum Hydroxide Gel Susp 15ml GT SCH ×4 (05:54→21:09)
[2017-05-24] MEDS: metroNIDAZOLE 500mg tab GT SCH ×3 (05:55→22:11)
[2017-05-24] MEDS: Sodium Bicarbonate 100 ML in NS 1000ml 1,000 ML IV SCH ×2 (05:57→18:08)
--- NOTE | 2017-05-24 08:21 | General Progress Note ---
Assessment/Plan Problem List: (1) Sepsis ICD Codes: A41.9 - Sepsis, unspecified organism SNOMED: 74129368 (2) Pneumonia ICD Codes: J18.9 - Pneumonia, unspecified organism SNOMED: 762615842 (3) Acute renal failure ICD Codes: N17.9 - Acute kidney failure, unspecified SNOMED: 30993698 (4) Pericardial effusion ICD Codes: I31.3 - Pericardial effusion (noninflammatory) SNOMED: 772874037 (5) Tracheostomy malfunction ICD Codes: J95.03 - Malfunction of tracheostomy stoma SNOMED: 08532753 (6) UTI (urinary tract infection) ICD Codes: N39.0 - Urinary tract infection, site not specified SNOMED: 19652998, 708296204 Qualifiers: Qualified Codes: N30.01 - Acute cystitis with hematuria Status: stable Assessment/Plan ivf iv abx follow up cultures vent support resp rx monitor renal fxn poor prognosis. d/w caregiver. dnr try to transfer to tertiary hospital for pericardial drainage remains critical and guarded Subjective ROS Limited/Unobtainable: No Constitutional: Reports: malaise, weakness HEENT: Reports: no symptoms Cardiovascular: Reports: irregular heart rate Respiratory: Reports: shortness of breath Gastrointestinal/Abdominal: Reports: difficulty swallowing Genitourinary: Reports: no symptoms Neurologic/Psychiatric: Reports: pre-existing deficit Endocrine: Reports: no symptoms Hematologic/Lymphatic: Reports: anemia Allergies: Coded Allergies: OLANZAPINE (Verified Allergy, Severe, RESP FAILURE, 11/25/13) VANCOMYCIN (Verified Allergy, Severe, 11/25/13) PIPERACILLIN (Verified Allergy, Intermediate, HIVES, 11/25/13) TAZOBACTAM (Verified Allergy, Intermediate, HIVES, 11/25/13) All Systems: reviewed and negative except above Subjective transferred to icu for svt. improved after picc pulled back. on amio drip. poor uop. labs reviewed. remains unresponsive at baseline Objective Last 24 Hour Vital Signs Date Time Temp Pulse Resp B/P (MAP) Pulse Ox O2 Delivery O2 Flow Rate FiO2 05/24/17 07:25 97 17 28 05/24/17 06:00 97 16 117/96 100 Mechanical Ventilator 05/24/17 05:25 100 18 28 05/24/17 05:00 99 21 106/86 100 Mechanical Ventilator 05/24/17 04:00 98.2 101 19 112/89 100 Mechanical Ventilator 28 05/24/17 04:00 101 05/24/17 04:00 28 05/24/17 03:00 100 21 104/81 100 Mechanical Ventilator 28 05/24/17 02:44 100 18 28 05/24/17 02:00 101 18 112/96 100 Mechanical Ventilator 28 05/24/17 01:25 100 18 28 05/24/17 01:00 95 18 103/85 100 Mechanical Ventilator 28 05/24/17 00:00 97.7 95 18 97/84 100 Mechanical Ventilator 28 05/24/17 00:00 28 05/24/17 00:00 95 05/23/17 23:12 97 16 28 05/23/17 23:00 96 18 99/77 100 Mechanical Ventilator 28 05/23/17 22:00 96 17 85/63 100 Mechanical Ventilator 28 05/23/17 21:45 94 16 100 Mechanical Ventilator 28 05/23/17 21:25 28 05/23/17 21:25 94 16 100 Mechanical Ventilator 28 05/23/17 21:23 94 16 28 05/23/17 21:00 94 16 92/76 100 Mechanical Ventilator 28 05/23/17 20:00 97 05/23/17 20:00 28 05/23/17 20:00 97 18 84/57 100 Mechanical Ventilator 28 05/23/17 19:30 97 19 28 05/23/17 19:00 97.7 101 18 72/57 99 Mechanical Ventilator 28 05/23/17 17:39 200 05/23/17 16:37 170 05/23/17 16:30 103 18 28 05/23/17 16:00 98 05/23/17 16:00 97.9 76 23 138/99 98 Mechanical Ventilator 28 05/23/17 14:55 101 18 28 05/23/17 13:30 99 18 28 05/23/17 12:00 103 05/23/17 12:00 96.8 98 16 114/71 99 Mechanical Ventilator 05/23/17 10:50 105 18 28 05/23/17 09:46 106 21 99 Mechanical Ventilator 28 05/23/17 09:29 28 05/23/17 09:29 101 16 100 Mechanical Ventilator 28 05/23/17 09:26 100 18 28 05/23/17 09:00 99 91/69 Laboratory Tests 05/24/17 04:30: White Blood Count 3.8#L, Red Blood Count 3.48L, Hemoglobin 9.9L, Hematocrit 29.4L, Mean Corpuscular Volume 85, Mean Corpuscular Hemoglobin 28.5, Mean Corpuscular Hemoglobin Concent 33.8, Red Cell Distribution Width 14.4, Platelet Count 907H, Mean Platelet Volume 5.9L, Neutrophils (%) (Auto) , Lymphocytes (%) (Auto) , Monocytes (%) (Auto) , Eosinophils (%) (Auto) , Basophils (%) (Auto) , Prothrombin Time 13.6H, Prothromb Time International Ratio 1.3H, Activated Partial Thromboplast Time 27, Sodium Level 147H, Potassium Level 3.4L, Chloride Level 108H, Carbon Dioxide Level 23, Anion Gap 16H, Blood Urea Nitrogen 52H, Creatinine 1.7H, Estimat Glomerular Filtration Rate 30.4, Glucose Level 219H, Uric Acid 13.9H, Calcium Level 8.0L, Phosphorus Level 7.6H, Magnesium Level 2.2 , Total Bilirubin 0.4, Gamma Glutamyl Transpeptidase 232H, Aspartate Amino Transf (AST/SGOT) 63H, Alanine Aminotransferase (ALT/SGPT) 111H, Alkaline Phosphatase 127H, C-Reactive Protein, Quantitative 8.4H, Pro-B-Type Natriuretic Peptide 8050H, Total Protein 5.7L, Albumin 2.6L, Globulin 3.1, Albumin/Globulin Ratio 0.8L Height (Feet): 5 Height (Inches): 0.00 Weight (Pounds): 195 General Appearance: no apparent distress, obese Neck: supple Cardiovascular: regular rhythm Respiratory/Chest: chest wall non-tender, rhonchi - bilaterally Abdomen: distended Edema: moderate edema Neurologic: unresponsive, aphasia OCHOA BISWAS May 24, 2017 08:21
[2017-05-24 08:36] LABS: MEAN CORPUSCULAR HEMOGLOBIN 28.5 PG (27.0-31.0); MEAN CORPUSCULAR HGB CONC 33.5 G/DL (32.0-36.0); MEAN CORPUSCULAR VOLUME 85 FL (80-99); MEAN PLATELET VOLUME 5.9 FL (6.5-10.1); PLATELET COUNT 887 K/UL (150-450); RED BLOOD COUNT 3.41 M/UL (4.20-5.40); RED CELL DISTRIBUTION WIDTH 13.9 % (11.6-14.8)
[2017-05-24 08:37] LABS: WHITE BLOOD COUNT 27.7 K/UL (4.8-10.8)
[2017-05-24] MEDS: Albuterol ud Inhalation HHN SCH ×2 (08:41→21:37)
[2017-05-24] MEDS: Ipratropium 0.02% Inh Soln 2.5ml UD HHN SCH ×2 (08:41→21:37)
--- NOTE | 2017-05-24 08:44 | Pulmonology Progress Note ---
Assessment/Plan Assessment/Plan IMPRESSION respiratory failure possible UTI possible sepsis ARF/CRF hyperkalemia pericardial effusion possible renal cyst vs mass hypertension (now with normal BP off meds) chronic encephalopathy hypothyroidism diabetes possible cirrhosis atrial fib, paroxysmal hyperuricemia pain possible ascites PLAN ventilator management- hyperventilate check ABG today echo noted; will need pericardial evaluation when stable and transfer MR abdomen and ultrasound when stable repeat US for ascites sliding scale and monitor sugars- consider long acting insulin feeds as tolerated- need to change per renal with electrolyte imbalance does not respond to reglan monitor for residuals GT care iv hydration free water GI/renal/ID/cards evaluation monitor clinically empiric antibiotics (penicillin allergic) ID aware of increase in WBC- abx adjusted watch platelets- now better may need HD sister discussing DNR medications/laboratory data/nursing notes/ICU care reviewed in detail note reviewed and edited care discussed with RN and RT ICU time spent 40 minutes Subjective ROS Limited/Unobtainable: Yes Allergies: Coded Allergies: OLANZAPINE (Verified Allergy, Severe, RESP FAILURE, 11/25/13) VANCOMYCIN (Verified Allergy, Severe, 11/25/13) PIPERACILLIN (Verified Allergy, Intermediate, HIVES, 11/25/13) TAZOBACTAM (Verified Allergy, Intermediate, HIVES, 11/25/13) Subjective overnight events reviewed labs noted had afib now stable d/w cards moved to ICU for rapid rate d/w sister at length update given d/w consultants Objective Last 24 Hour Vital Signs Date Time Temp Pulse Resp B/P (MAP) Pulse Ox O2 Delivery O2 Flow Rate FiO2 05/24/17 08:39 102 16 100 Mechanical Ventilator 05/24/17 08:00 100 20 109/82 100 Mechanical Ventilator 05/24/17 08:00 97 05/24/17 08:00 28 05/24/17 07:25 97 17 28 05/24/17 07:00 98.1 97 18 132/97 100 Mechanical Ventilator 05/24/17 06:00 97 16 117/96 100 Mechanical Ventilator 05/24/17 05:25 100 18 28 05/24/17 05:00 99 21 106/86 100 Mechanical Ventilator 05/24/17 04:00 98.2 101 19 112/89 100 Mechanical Ventilator 05/24/17 04:00 101 05/24/17 04:00 28 05/24/17 03:00 100 21 104/81 100 Mechanical Ventilator 05/24/17 02:44 100 18 28 05/24/17 02:00 101 18 112/96 100 Mechanical Ventilator 28 05/24/17 01:25 100 18 28 05/24/17 01:00 95 18 103/85 100 Mechanical Ventilator 28 05/24/17 00:00 97.7 95 18 97/84 100 Mechanical Ventilator 28 05/24/17 00:00 28 05/24/17 00:00 95 05/23/17 23:12 97 16 28 05/23/17 23:00 96 18 99/77 100 Mechanical Ventilator 28 05/23/17 22:00 96 17 85/63 100 Mechanical Ventilator 28 05/23/17 21:45 94 16 100 Mechanical Ventilator 28 05/23/17 21:25 28 05/23/17 21:25 94 16 100 Mechanical Ventilator 28 05/23/17 21:23 94 16 28 05/23/17 21:00 94 16 92/76 100 Mechanical Ventilator 28 05/23/17 20:00 97 05/23/17 20:00 28 05/23/17 20:00 97 18 84/57 100 Mechanical Ventilator 28 05/23/17 19:30 97 19 28 05/23/17 19:00 97.7 101 18 72/57 99 Mechanical Ventilator 28 05/23/17 17:39 200 05/23/17 16:37 170 05/23/17 16:30 103 18 28 05/23/17 16:00 98 05/23/17 16:00 97.9 76 23 138/99 98 Mechanical Ventilator 28 05/23/17 14:55 101 18 28 05/23/17 13:30 99 18 28 05/23/17 12:00 103 05/23/17 12:00 96.8 98 16 114/71 99 Mechanical Ventilator 05/23/17 10:50 105 18 28 05/23/17 09:46 106 21 99 Mechanical Ventilator 28 05/23/17 09:29 28 05/23/17 09:29 101 16 100 Mechanical Ventilator 28 05/23/17 09:26 100 18 28 05/23/17 09:00 99 91/69 Objective WDWN female chronically ill NAD clear breath sounds bilaterally without rhonchi or wheeze PIP on vent 50s [id number] without MRG NABS nontender no HSM; protuberant; GT- more distended ?ascites no CC some edema diffusely short neck unresponsive reviewed and edited Microbiology Date/Time Source Procedure Growth Status 05/21/17 13:15 Blood Blood Culture - Preliminary NO GROWTH AFTER 48 HOURS Resulted 05/21/17 13:10 Blood Blood Culture - Preliminary NO GROWTH AFTER 48 HOURS Resulted 05/23/17 09:45 Sputum Gram Stain - Final Resulted 05/23/17 09:45 Sputum Culture - Preliminary Gram Negative Bacillus 1 Resulted 05/21/17 13:16 Urine,Clean Catch Urine Culture - Final Klebsiella Pneumoniae Complete Laboratory Tests 05/24/17 04:30: White Blood Count 3.8#L, Red Blood Count 3.48L, Hemoglobin 9.9L, Hematocrit 29.4L, Mean Corpuscular Volume 85, Mean Corpuscular Hemoglobin 28.5, Mean Corpuscular Hemoglobin Concent 33.8, Red Cell Distribution Width 14.4, Platelet Count 907H, Mean Platelet Volume 5.9L, Neutrophils (%) (Auto) , Lymphocytes (%) (Auto) , Monocytes (%) (Auto) , Eosinophils (%) (Auto) , Basophils (%) (Auto) , Prothrombin Time 13.6H, Prothromb Time International Ratio 1.3H, Activated Partial Thromboplast Time 27, Sodium Level 147H, Potassium Level 3.4L, Chloride Level 108H, Carbon Dioxide Level 23, Anion Gap 16H, Blood Urea Nitrogen 52H, Creatinine 1.7H, Estimat Glomerular Filtration Rate 30.4, Glucose Level 219H, Uric Acid 13.9H, Calcium Level 8.0L, Phosphorus Level 7.6H, Magnesium Level 2.2 , Total Bilirubin 0.4, Gamma Glutamyl Transpeptidase 232H, Aspartate Amino Transf (AST/SGOT) 63H, Alanine Aminotransferase (ALT/SGPT) 111H, Alkaline Phosphatase 127H, C-Reactive Protein, Quantitative 8.4H, Pro-B-Type Natriuretic Peptide 8050H, Total Protein 5.7L, Albumin 2.6L, Globulin 3.1, Albumin/Globulin Ratio 0.8L 05/24/17 07:05: White Blood Count 27.7#*H, Red Blood Count 3.41L, Hemoglobin 9.7L, Hematocrit 29.0L, Mean Corpuscular Volume 85, Mean Corpuscular Hemoglobin 28.5, Mean Corpuscular Hemoglobin Concent 33.5, Red Cell Distribution Width 13.9, Platelet Count 887H, Mean Platelet Volume 5.9L, Neutrophils (%) (Auto) , Lymphocytes (%) (Auto) , Monocytes (%) (Auto) , Eosinophils (%) (Auto) , Basophils (%) (Auto) , Neutrophils % (Manual) [Pending], Lymphocytes % (Manual) [Pending], Platelet Estimate [Pending], Platelet Morphology [Pending] Current Medications Medications (Trade) Dose Ordered Sig/Alex Route PRN Reason Start Time Stop Time Status Last Admin Dose Admin Acetaminophen (Tylenol) 650 mg Q6H PRN GT Mild Pain/Temp > 100.5 05/23/17 19:15 06/22/17 19:14 Acetaminophen/ Hydrocodone Bitart ([place] 5/325) 1 tab Q4H PRN GT Moderate Pain (Pain Scale 4-6) 05/23/17 19:15 05/30/17 19:14 Albuterol Sulfate (Proventil) 2.5 mg BIDRT N 05/23/17 22:00 05/26/17 21:59 05/23/17 21:24 Aluminum Hydroxide (Amphojel) 1,920 mg Q6HR GT 05/24/17 00:00 06/23/17 00:00 05/24/17 05:54 Atenolol (Tenormin) 12.5 mg DAILY GT 05/24/17 09:00 06/21/17 08:59 Bisacodyl (Dulcolax) 5 mg DAILYPRN PRN RECTAL Constipation 05/23/17 20:30 06/22/17 20:29 Dextrose (Dextrose 50%) STAT PRN IV Hypoglycemia 05/24/17 08:30 06/23/17 08:29 Heparin Sodium (Porcine) (Heparin 5000 units/ml) 5,000 units EVERY 12 HOURS SUBQ 05/23/17 21:00 06/22/17 08:59 05/23/17 21:10 Insulin Aspart (NovoLOG) BEFORE MEALS AND HS SUBQ 05/24/17 11:30 06/23/17 11:29 Ipratropium [place] (Atrovent) 500 mcg BID HHN 05/24/17 09:00 05/27/17 08:59 Lactobacillus Acidophilus (Culturelle) 1 tab DAILY GT 05/24/17 09:00 06/21/17 08:59 Levothyroxine Sodium (Synthroid) 75 mcg ACBREAKFAST GT 05/24/17 06:30 06/21/17 06:29 05/24/17 07:35 Levothyroxine Sodium (Synthroid) 100 mcg ACBREAKFAST GT 05/24/17 06:30 06/21/17 06:29 05/24/17 05:55 Metronidazole (Flagyl) 500 mg Q8HR GT 05/23/17 22:00 05/30/17 13:59 05/24/17 05:55 Multivitamins (Multivitamins W/ Minerals 15ml Liquid) 15 ml DAILY GT 05/24/17 09:00 06/21/17 08:59 Pantoprazole (Protonix) 40 mg EVERY 12 HOURS IVP 05/23/17 21:00 06/21/17 20:59 05/23/17 21:09 Patient Own Medication (Patient's Own Med) 1 ea QID BOTH EYES 05/23/17 21:00 06/22/17 20:59 05/23/17 21:03 Patient Own Medication (Patient's Own Med) 1 ea QID BOTH EYES 05/23/17 21:00 06/22/17 20:59 05/23/17 21:04 Sodium Bicarbonate 100 ml/Sodium Chloride 1,100 ml @ 100 mls/hr Q11H IV 05/23/17 19:30 06/21/17 19:29 05/24/17 05:57 Sodium Citrate (Bicitra) 30 ml EVERY 6 HOURS GT 05/24/17 00:00 06/21/17 17:59 05/24/17 05:54 Trimethoprim/ Sulfamethoxazole (Bactrim Single Strength) 1 ea EVERY 12 HOURS GT 05/23/17 21:00 05/30/17 13:29 05/23/17 21:09 ANTIONETTE RODRIGUEZ May 24, 2017 08:44
[2017-05-24] MEDS ORDERED: Atenolol 12.5mg GT SCH (09:00)
[2017-05-24] MEDS: Bactrim SS Tab GT SCH (09:00)
[2017-05-24] MEDS ORDERED: Multivitamins W/Minerals 15 ML UDC GT SCH (09:00)
[2017-05-24] MEDS ORDERED: Artificial Tears 1.4% Op Soln BOTH EYES SCH (09:00)
[2017-05-24] MEDS: Heparin 5000 units/ml inj SUBQ SCH ×2 (09:33→21:10)
[2017-05-24] MEDS: SYSTANE BOTH EYES SCH ×4 (09:36→21:07)
[2017-05-24] MEDS: [UNRECOGNIZED DRUG - OTHER] BOTH EYES SCH ×4 (09:36→21:07)
[2017-05-24] MEDS: Lactobacillus-GG tablet GT SCH (09:36)
[2017-05-24] MEDS: Pantoprazole Inj IVP SCH ×2 (09:36→21:09)
[2017-05-24 09:40] LABS: BAND NEUTROPHILS % (MANUAL) 0 % (0-8); BASOPHILS % (MANUAL) 0 % (0-2); EOSINOPHILS % (MANUAL) 0 % (0-3); HYPOCHROMASIA 1+; LYMPHOCYTES % (MANUAL) 4 % (20-45); NEUTROPHILS % (MANUAL) 89 % (45-75); NUCLEATED RED BLOOD CELLS 2 /100 WBC; PLATELET ESTIMATE INCREASED; POLYCHROMASIA 2+; TOTAL CELLS COUNTED 100
[2017-05-24 09:41] LABS: ANISOCYTOSIS 1+; PLATELET MORPHOLOGY NORMAL
--- NOTE | 2017-05-24 10:40 | Infectious Diseases Prog Note ---
Assessment/Plan Assessment/Plan A 1. klebsiella UTI 2. leucocytosis 3. respiratory failure 4. DM 5. HPN 6. anoxic brain injury 7. Anasarca P 1. Continue Meropenem, Flagyl 2. will f/u cultures Subjective Cardiovascular: Reports: other - transferred to ICU because of tachycardia Allergies: Coded Allergies: OLANZAPINE (Verified Allergy, Severe, RESP FAILURE, 11/25/13) VANCOMYCIN (Verified Allergy, Severe, 11/25/13) PIPERACILLIN (Verified Allergy, Intermediate, HIVES, 11/25/13) TAZOBACTAM (Verified Allergy, Intermediate, HIVES, 11/25/13) Objective Vital Signs Last 24 Hour Vital Signs Date Time Temp Pulse Resp B/P (MAP) Pulse Ox O2 Delivery O2 Flow Rate FiO2 05/24/17 10:13 98.5 104 17 93/79 100 Mechanical Ventilator 05/24/17 09:00 102 17 109/81 100 Mechanical Ventilator 05/24/17 08:53 103 17 100 Mechanical Ventilator 28 05/24/17 08:42 28 05/24/17 08:42 102 17 28 05/24/17 08:39 102 16 100 Mechanical Ventilator 28 05/24/17 08:00 100 20 109/82 100 Mechanical Ventilator 28 05/24/17 08:00 97 05/24/17 08:00 28 05/24/17 07:25 97 17 28 05/24/17 07:00 98.1 97 18 132/97 100 Mechanical Ventilator 05/24/17 06:00 97 16 117/96 100 Mechanical Ventilator 28 05/24/17 05:25 100 18 28 05/24/17 05:00 99 21 106/86 100 Mechanical Ventilator 28 05/24/17 04:00 98.2 101 19 112/89 100 Mechanical Ventilator 28 05/24/17 04:00 101 05/24/17 04:00 28 05/24/17 03:00 100 21 104/81 100 Mechanical Ventilator 28 05/24/17 02:44 100 18 28 05/24/17 02:00 101 18 112/96 100 Mechanical Ventilator 28 05/24/17 01:25 100 18 28 05/24/17 01:00 95 18 103/85 100 Mechanical Ventilator 28 05/24/17 00:00 97.7 95 18 97/84 100 Mechanical Ventilator 28 05/24/17 00:00 28 05/24/17 00:00 95 05/23/17 23:12 97 16 28 05/23/17 23:00 96 18 99/77 100 Mechanical Ventilator 28 05/23/17 22:00 96 17 85/63 100 Mechanical Ventilator 28 05/23/17 21:45 94 16 100 Mechanical Ventilator 28 05/23/17 21:25 28 05/23/17 21:25 94 16 100 Mechanical Ventilator 28 05/23/17 21:23 94 16 28 05/23/17 21:00 94 16 92/76 100 Mechanical Ventilator 28 05/23/17 20:00 97 05/23/17 20:00 28 05/23/17 20:00 97 18 84/57 100 Mechanical Ventilator 28 05/23/17 19:30 97 19 28 05/23/17 19:00 97.7 101 18 72/57 99 Mechanical Ventilator 28 05/23/17 17:39 200 05/23/17 16:37 170 05/23/17 16:30 103 18 28 05/23/17 16:00 98 05/23/17 16:00 97.9 76 23 138/99 98 Mechanical Ventilator 28 05/23/17 14:55 101 18 28 05/23/17 13:30 99 18 28 05/23/17 12:00 103 05/23/17 12:00 96.8 98 16 114/71 99 Mechanical Ventilator 05/23/17 10:50 105 18 28 Height (Feet): 5 Height (Inches): 0.00 Weight (Pounds): 195 HEENT: status post trach Respiratory/Chest: other - on ventilator, coarse sounds Cardiovascular: tachycardia Abdomen: soft, non tender, other - GT feeding Extremities: other - generalized edema, right arm PICC line Microbiology Date/Time Source Procedure Growth Status 05/21/17 13:15 Blood Blood Culture - Preliminary NO GROWTH AFTER 48 HOURS Resulted 05/21/17 13:10 Blood Blood Culture - Preliminary NO GROWTH AFTER 48 HOURS Resulted 05/23/17 09:45 Sputum Gram Stain - Final Resulted 05/23/17 09:45 Sputum Culture - Preliminary Gram Negative Bacillus 1 Resulted 05/21/17 13:16 Urine,Clean Catch Urine Culture - Final Klebsiella Pneumoniae Complete Laboratory Tests Test 05/24/17 04:30 05/24/17 07:05 White Blood Count 3.8 K/UL (4.8-10.8) #L 27.7 K/UL (4.8-10.8) #*H Red Blood Count 3.48 M/UL (4.20-5.40) L 3.41 M/UL (4.20-5.40) L Hemoglobin 9.9 G/DL (12.0-16.0) L 9.7 G/DL (12.0-16.0) L Hematocrit 29.4 % (37.0-47.0) L 29.0 % (37.0-47.0) L Mean Corpuscular Volume 85 FL (80-99) 85 FL (80-99) Mean Corpuscular Hemoglobin 28.5 PG (27.0-31.0) 28.5 PG (27.0-31.0) Mean Corpuscular Hemoglobin Concent 33.8 G/DL (32.0-36.0) 33.5 G/DL (32.0-36.0) Red Cell Distribution Width 14.4 % (11.6-14.8) 13.9 % (11.6-14.8) Platelet Count 907 K/UL (150-450) H 887 K/UL (150-450) H Mean Platelet Volume 5.9 FL (6.5-10.1) L 5.9 FL (6.5-10.1) L Neutrophils (%) (Auto) % (45.0-75.0) % (45.0-75.0) Lymphocytes (%) (Auto) % (20.0-45.0) % (20.0-45.0) Monocytes (%) (Auto) % (1.0-10.0) % (1.0-10.0) Eosinophils (%) (Auto) % (0.0-3.0) % (0.0-3.0) Basophils (%) (Auto) % (0.0-2.0) % (0.0-2.0) Prothrombin Time 13.6 SEC (9.30-11.50) H Prothromb Time International Ratio 1.3 (0.9-1.1) H Activated Partial Thromboplast Time 27 SEC (23-33) Sodium Level 147 MMOL/L (136-145) H Potassium Level 3.4 MMOL/L (3.5-5.1) L Chloride Level 108 MMOL/L (98-107) H Carbon Dioxide Level 23 MMOL/L (21-32) Anion Gap 16 mmol/L (5-15) H Blood Urea Nitrogen 52 mg/dL (7-18) H Creatinine 1.7 MG/DL (0.55-1.30) H Estimat Glomerular Filtration Rate 30.4 mL/min (>60) Glucose Level 219 MG/DL (74-106) H Uric Acid 13.9 MG/DL (2.6-7.2) H Calcium Level 8.0 MG/DL (8.5-10.1) L Phosphorus Level 7.6 MG/DL (2.5-4.9) H Magnesium Level 2.2 MG/DL (1.8-2.4) Total Bilirubin 0.4 MG/DL (0.2-1.0) Gamma Glutamyl Transpeptidase 232 U/L (5-85) H Aspartate Amino Transf (AST/SGOT) 63 U/L (15-37) H Alanine Aminotransferase (ALT/SGPT) 111 U/L (12-78) H Alkaline Phosphatase 127 U/L (46-116) H C-Reactive Protein, Quantitative 8.4 mg/dL (0.00-0.90) H Pro-B-Type Natriuretic Peptide 8050 pg/mL (0-125) H Total Protein 5.7 G/DL (6.4-8.2) L Albumin 2.6 G/DL (3.4-5.0) L Globulin 3.1 g/dL Albumin/Globulin Ratio 0.8 (1.0-2.7) L Differential Total Cells Counted 100 Neutrophils % (Manual) 89 % (45-75) H Lymphocytes % (Manual) 4 % (20-45) L Monocytes % (Manual) 7 % (1-10) Eosinophils % (Manual) 0 % (0-3) Basophils % (Manual) 0 % (0-2) Band Neutrophils 0 % (0-8) Nucleated Red Blood Cells 2 /100 WBC Platelet Estimate Increased H Platelet Morphology Normal Polychromasia 2+ Hypochromasia 1+ Anisocytosis 1+ Current Medications Medications (Trade) Dose Ordered Sig/Alex Route PRN Reason Start Time Stop Time Status Last Admin Dose Admin Acetaminophen (Tylenol) 650 mg Q6H PRN GT Mild Pain/Temp > 100.5 05/23/17 19:15 06/22/17 19:14 Acetaminophen/ Hydrocodone Bitart ([place] 5/325) 1 tab Q4H PRN GT Moderate Pain (Pain Scale 4-6) 05/23/17 19:15 05/30/17 19:14 Albuterol Sulfate (Proventil) 2.5 mg BIDRT N 05/23/17 22:00 05/26/17 21:59 05/24/17 08:41 Aluminum Hydroxide (Amphojel) 1,920 mg Q4HR GT 05/24/17 13:00 06/23/17 00:00 Atenolol (Tenormin) 12.5 mg DAILY GT 05/24/17 09:00 06/21/17 08:59 05/24/17 09:32 Bisacodyl (Dulcolax) 5 mg DAILYPRN PRN RECTAL Constipation 05/23/17 20:30 06/22/17 20:29 Chlorhexidine Gluconate ([place]-Hex 2%) 1 applic DAILY@2000 TOPIC 05/24/17 20:00 06/23/17 19:59 Dextrose (Dextrose 50%) STAT PRN IV Hypoglycemia 05/24/17 08:30 06/23/17 08:29 Epoetin Amadou (Procrit (for non ESRD use)) 10,000 units MON-WED-SUN SUBQ 05/25/17 21:00 06/24/17 20:59 Heparin Sodium (Porcine) (Heparin 5000 units/ml) 5,000 units EVERY 12 HOURS SUBQ 05/23/17 21:00 06/22/17 08:59 05/24/17 09:33 Insulin Aspart (NovoLOG) BEFORE MEALS AND HS SUBQ 05/24/17 11:30 06/23/17 11:29 Ipratropium [place] (Atrovent) 500 mcg BID N 05/24/17 09:00 05/27/17 08:59 05/24/17 08:41 Lactobacillus Acidophilus (Culturelle) 1 tab DAILY GT 05/24/17 09:00 06/21/17 08:59 05/24/17 09:36 Levothyroxine Sodium (Synthroid) 75 mcg ACBREAKFAST GT 05/24/17 06:30 06/21/17 06:29 05/24/17 07:35 Levothyroxine Sodium (Synthroid) 100 mcg ACBREAKFAST GT 05/24/17 06:30 06/21/17 06:29 05/24/17 05:55 Meropenem 1 gm/ Sodium Chloride 55 ml @ 110 mls/hr Q12H IVPB 05/24/17 10:00 05/29/17 09:59 Metronidazole (Flagyl) 500 mg Q8HR GT 05/23/17 22:00 05/30/17 13:59 05/24/17 05:55 Multivitamins (Multivitamins W/ Minerals 15ml Liquid) 15 ml DAILY GT 05/24/17 09:00 06/21/17 08:59 05/24/17 09:34 Pantoprazole (Protonix) 40 mg EVERY 12 HOURS IVP 05/23/17 21:00 06/21/17 20:59 05/24/17 09:36 Patient Own Medication (Patient's Own Med) 1 ea QID BOTH EYES 05/23/17 21:00 06/22/17 20:59 05/24/17 09:36 Patient Own Medication (Patient's Own Med) 1 ea QID BOTH EYES 05/23/17 21:00 06/22/17 20:59 05/24/17 09:36 Sodium Bicarbonate 100 ml/Sodium Chloride 1,100 ml @ 100 mls/hr Q11H IV 05/23/17 19:30 06/21/17 19:29 05/24/17 05:57 Sodium Citrate (Bicitra) 30 ml BID GT 05/24/17 18:00 06/21/17 17:59 EPIFANIO NGUYEN May 24, 2017 10:40
[2017-05-24] MEDS: Meropenem 1 GM in NS 55 ML IVPB SCH ×2 (11:10→22:11)
[2017-05-24] MEDS: NovoLOG Insulin Flexpen SUBQ SCH ×3 (11:15→21:26)
--- NOTE | 2017-05-24 11:31 | General Progress Note ---
Assessment/Plan Assessment/Plan Assessment - Encephalopathy - Resp failure - Trach - dysphagia - PEG - edema / anasarca - abd distention, possible ascites vs bowel dysmotility - UTI/PNA - leukocytosis - azotemia - pericardial effusion - marked thrombocytosis - poor Px Recommendations - continue TF - now on nephro - cardiology f/u - hold off on GT change - check C Diff - check KUB and abd U/S - continue abx Subjective Allergies: Coded Allergies: OLANZAPINE (Verified Allergy, Severe, RESP FAILURE, 11/25/13) VANCOMYCIN (Verified Allergy, Severe, 11/25/13) PIPERACILLIN (Verified Allergy, Intermediate, HIVES, 11/25/13) TAZOBACTAM (Verified Allergy, Intermediate, HIVES, 11/25/13) Subjective d/w RN tolerating TF abd distended, and firm Objective Last 24 Hour Vital Signs Date Time Temp Pulse Resp B/P (MAP) Pulse Ox O2 Delivery O2 Flow Rate FiO2 05/24/17 11:07 102 17 28 05/24/17 10:13 98.5 104 17 93/79 100 Mechanical Ventilator 05/24/17 09:00 102 17 109/81 100 Mechanical Ventilator 05/24/17 08:53 103 17 100 Mechanical Ventilator 05/24/17 08:42 28 05/24/17 08:42 102 17 28 05/24/17 08:39 102 16 100 Mechanical Ventilator 05/24/17 08:00 100 20 109/82 100 Mechanical Ventilator 05/24/17 08:00 97 05/24/17 08:00 28 05/24/17 07:25 97 17 28 05/24/17 07:00 98.1 97 18 132/97 100 Mechanical Ventilator 05/24/17 06:00 97 16 117/96 100 Mechanical Ventilator 05/24/17 05:25 100 18 28 05/24/17 05:00 99 21 106/86 100 Mechanical Ventilator 05/24/17 04:00 98.2 101 19 112/89 100 Mechanical Ventilator 05/24/17 04:00 101 05/24/17 04:00 28 05/24/17 03:00 100 21 104/81 100 Mechanical Ventilator 05/24/17 02:44 100 18 28 05/24/17 02:00 101 18 112/96 100 Mechanical Ventilator 05/24/17 01:25 100 18 28 05/24/17 01:00 95 18 103/85 100 Mechanical Ventilator 28 05/24/17 00:00 97.7 95 18 97/84 100 Mechanical Ventilator 28 05/24/17 00:00 28 05/24/17 00:00 95 05/23/17 23:12 97 16 28 05/23/17 23:00 96 18 99/77 100 Mechanical Ventilator 28 05/23/17 22:00 96 17 85/63 100 Mechanical Ventilator 28 05/23/17 21:45 94 16 100 Mechanical Ventilator 28 05/23/17 21:25 28 05/23/17 21:25 94 16 100 Mechanical Ventilator 28 05/23/17 21:23 94 16 28 05/23/17 21:00 94 16 92/76 100 Mechanical Ventilator 28 05/23/17 20:00 97 05/23/17 20:00 28 05/23/17 20:00 97 18 84/57 100 Mechanical Ventilator 28 05/23/17 19:30 97 19 28 05/23/17 19:00 97.7 101 18 72/57 99 Mechanical Ventilator 28 05/23/17 17:39 200 05/23/17 16:37 170 05/23/17 16:30 103 18 28 05/23/17 16:00 98 05/23/17 16:00 97.9 76 23 138/99 98 Mechanical Ventilator 28 05/23/17 14:55 101 18 28 05/23/17 13:30 99 18 28 05/23/17 12:00 103 05/23/17 12:00 96.8 98 16 114/71 99 Mechanical Ventilator Intake and Output 05/24/17 05/25/17 19:00 07:00 Intake Total 90 ml Output Total 0 ml Balance 90 ml Tube Feeding 90 ml Output Urine Total 0 ml Laboratory Tests 05/24/17 04:30: White Blood Count 3.8#L, Red Blood Count 3.48L, Hemoglobin 9.9L, Hematocrit 29.4L, Mean Corpuscular Volume 85, Mean Corpuscular Hemoglobin 28.5, Mean Corpuscular Hemoglobin Concent 33.8, Red Cell Distribution Width 14.4, Platelet Count 907H, Mean Platelet Volume 5.9L, Neutrophils (%) (Auto) , Lymphocytes (%) (Auto) , Monocytes (%) (Auto) , Eosinophils (%) (Auto) , Basophils (%) (Auto) , Prothrombin Time 13.6H, Prothromb Time International Ratio 1.3H, Activated Partial Thromboplast Time 27, Sodium Level 147H, Potassium Level 3.4L, Chloride Level 108H, Carbon Dioxide Level 23, Anion Gap 16H, Blood Urea Nitrogen 52H, Creatinine 1.7H, Estimat Glomerular Filtration Rate 30.4, Glucose Level 219H, Uric Acid 13.9H, Calcium Level 8.0L, Phosphorus Level 7.6H, Magnesium Level 2.2 , Total Bilirubin 0.4, Gamma Glutamyl Transpeptidase 232H, Aspartate Amino Transf (AST/SGOT) 63H, Alanine Aminotransferase (ALT/SGPT) 111H, Alkaline Phosphatase 127H, C-Reactive Protein, Quantitative 8.4H, Pro-B-Type Natriuretic Peptide 8050H, Total Protein 5.7L, Albumin 2.6L, Globulin 3.1, Albumin/Globulin Ratio 0.8L 05/24/17 07:05: White Blood Count 27.7#*H, Red Blood Count 3.41L, Hemoglobin 9.7L, Hematocrit 29.0L, Mean Corpuscular Volume 85, Mean Corpuscular Hemoglobin 28.5, Mean Corpuscular Hemoglobin Concent 33.5, Red Cell Distribution Width 13.9, Platelet Count 887H, Mean Platelet Volume 5.9L, Neutrophils (%) (Auto) , Lymphocytes (%) (Auto) , Monocytes (%) (Auto) , Eosinophils (%) (Auto) , Basophils (%) (Auto) , Differential Total Cells Counted 100, Neutrophils % (Manual) 89H, Lymphocytes % (Manual) 4L, Monocytes % (Manual) 7, Eosinophils % (Manual) 0, Basophils % ( Manual) 0, Band Neutrophils 0, Nucleated Red Blood Cells 2, Platelet Estimate IncreasedH, Platelet Morphology Normal, Polychromasia 2+, Hypochromasia 1+, Anisocytosis 1+ Height (Feet): 5 Height (Inches): 0.00 Weight (Pounds): 195 Objective Obese WW NCAT supple Chest: coarse BS RRR obese, firm and distended abd, (+) GT (++) edema / anasarca OBS ZINAJILL STROUD May 24, 2017 11:31
--- NOTE | 2017-05-24 11:37 | Nephrology Progress Note ---
Assessment/Plan Problem List: (1) Acute renal failure (2) Sepsis (3) UTI (urinary tract infection) (4) Tracheostomy dependence (5) Hypotension Assessment Cr up 1.7 Urine out put remains low -. Acute renal failure due to ? sepsis , intravascular volume depletion, low BP... Cr rising- Urine out put down- -. Hypoalbuminemia: - Increase loss: NS - Decrease production: Nutritional -. Shock, sepsis, pneumonia, pericardial effusion. -. History of hypertension, now with low blood pressure. -. Hyperkalemia. improved -. Hyponatremia. improved -. Prerenal azotemia. -. Respiratory failure with tracheostomy. -. Anasarca with ascites. due to low Albumin -. HypoThyroidism . Plan STOP ALL NON FORMULARY SUPPLEMENTS- Stop Bactrim Diet to Nepro- Amphojel as Phos binder- Antibiotics- decrease Bicitra GT- IV protonix Albumin 5% 500cc today Pulmonary support- Keep BP in check Monitor renal parameters- Avoid nephrotoxics 24 H urine for proteins pending per orders talked to [facility] home day care provider and Dr De León 05/23 Long phone conversation with sister who requests transfer to [facility] 05/23 more Albumin 5% Subjective ROS Limited/Unobtainable: Yes Constitutional: Reports: other - in ICU on Vent Objective Objective Last 24 Hour Vital Signs Date Time Temp Pulse Resp B/P (MAP) Pulse Ox O2 Delivery O2 Flow Rate FiO2 05/24/17 11:07 102 17 28 05/24/17 10:13 98.5 104 17 93/79 100 Mechanical Ventilator 05/24/17 09:00 102 17 109/81 100 Mechanical Ventilator 05/24/17 08:53 103 17 100 Mechanical Ventilator 05/24/17 08:42 28 05/24/17 08:42 102 17 28 05/24/17 08:39 102 16 100 Mechanical Ventilator 05/24/17 08:00 100 20 109/82 100 Mechanical Ventilator 05/24/17 08:00 97 05/24/17 08:00 28 05/24/17 07:25 97 17 28 05/24/17 07:00 98.1 97 18 132/97 100 Mechanical Ventilator 05/24/17 06:00 97 16 117/96 100 Mechanical Ventilator 05/24/17 05:25 100 18 28 05/24/17 05:00 99 21 106/86 100 Mechanical Ventilator 28 05/24/17 04:00 98.2 101 19 112/89 100 Mechanical Ventilator 28 05/24/17 04:00 101 05/24/17 04:00 28 05/24/17 03:00 100 21 104/81 100 Mechanical Ventilator 28 05/24/17 02:44 100 18 28 05/24/17 02:00 101 18 112/96 100 Mechanical Ventilator 28 05/24/17 01:25 100 18 28 05/24/17 01:00 95 18 103/85 100 Mechanical Ventilator 28 05/24/17 00:00 97.7 95 18 97/84 100 Mechanical Ventilator 28 05/24/17 00:00 28 05/24/17 00:00 95 05/23/17 23:12 97 16 28 05/23/17 23:00 96 18 99/77 100 Mechanical Ventilator 28 05/23/17 22:00 96 17 85/63 100 Mechanical Ventilator 28 05/23/17 21:45 94 16 100 Mechanical Ventilator 28 05/23/17 21:25 28 05/23/17 21:25 94 16 100 Mechanical Ventilator 28 05/23/17 21:23 94 16 28 05/23/17 21:00 94 16 92/76 100 Mechanical Ventilator 28 05/23/17 20:00 97 05/23/17 20:00 28 05/23/17 20:00 97 18 84/57 100 Mechanical Ventilator 28 05/23/17 19:30 97 19 28 05/23/17 19:00 97.7 101 18 72/57 99 Mechanical Ventilator 28 05/23/17 17:39 200 05/23/17 16:37 170 05/23/17 16:30 103 18 28 05/23/17 16:00 98 05/23/17 16:00 97.9 76 23 138/99 98 Mechanical Ventilator 28 05/23/17 14:55 101 18 28 05/23/17 13:30 99 18 28 05/23/17 12:00 103 05/23/17 12:00 96.8 98 16 114/71 99 Mechanical Ventilator Intake and Output 05/24/17 05/25/17 19:00 07:00 Intake Total 90 ml Output Total 0 ml Balance 90 ml Tube Feeding 90 ml Output Urine Total 0 ml Laboratory Tests 05/24/17 04:30: White Blood Count 3.8#L, Red Blood Count 3.48L, Hemoglobin 9.9L, Hematocrit 29.4L, Mean Corpuscular Volume 85, Mean Corpuscular Hemoglobin 28.5, Mean Corpuscular Hemoglobin Concent 33.8, Red Cell Distribution Width 14.4, Platelet Count 907H, Mean Platelet Volume 5.9L, Neutrophils (%) (Auto) , Lymphocytes (%) (Auto) , Monocytes (%) (Auto) , Eosinophils (%) (Auto) , Basophils (%) (Auto) , Prothrombin Time 13.6H, Prothromb Time International Ratio 1.3H, Activated Partial Thromboplast Time 27, Sodium Level 147H, Potassium Level 3.4L, Chloride Level 108H, Carbon Dioxide Level 23, Anion Gap 16H, Blood Urea Nitrogen 52H, Creatinine 1.7H, Estimat Glomerular Filtration Rate 30.4, Glucose Level 219H, Uric Acid 13.9H, Calcium Level 8.0L, Phosphorus Level 7.6H, Magnesium Level 2.2 , Total Bilirubin 0.4, Gamma Glutamyl Transpeptidase 232H, Aspartate Amino Transf (AST/SGOT) 63H, Alanine Aminotransferase (ALT/SGPT) 111H, Alkaline Phosphatase 127H, C-Reactive Protein, Quantitative 8.4H, Pro-B-Type Natriuretic Peptide 8050H, Total Protein 5.7L, Albumin 2.6L, Globulin 3.1, Albumin/Globulin Ratio 0.8L 05/24/17 07:05: White Blood Count 27.7#*H, Red Blood Count 3.41L, Hemoglobin 9.7L, Hematocrit 29.0L, Mean Corpuscular Volume 85, Mean Corpuscular Hemoglobin 28.5, Mean Corpuscular Hemoglobin Concent 33.5, Red Cell Distribution Width 13.9, Platelet Count 887H, Mean Platelet Volume 5.9L, Neutrophils (%) (Auto) , Lymphocytes (%) (Auto) , Monocytes (%) (Auto) , Eosinophils (%) (Auto) , Basophils (%) (Auto) , Differential Total Cells Counted 100, Neutrophils % (Manual) 89H, Lymphocytes % (Manual) 4L, Monocytes % (Manual) 7, Eosinophils % (Manual) 0, Basophils % ( Manual) 0, Band Neutrophils 0, Nucleated Red Blood Cells 2, Platelet Estimate IncreasedH, Platelet Morphology Normal, Polychromasia 2+, Hypochromasia 1+, Anisocytosis 1+ Height (Feet): 5 Height (Inches): 0.00 Weight (Pounds): 195 General Appearance: no apparent distress, lethargic EENT: other - vented Cardiovascular: tachycardia Respiratory/Chest: decreased breath sounds Abdomen: distended Objective no other changes QIANA SALGADO May 24, 2017 11:37
[2017-05-24] MEDS ORDERED: Amiodarone 900 MG in D5W 500ml 482 ML IV SCH ×2 (12:00→15:00)
--- NOTE | 2017-05-24 12:10 | Diagnostic Imaging Report ---
Indication: Abdominal distention Technique: Supine view of the abdomen Comparison: none Findings: Exam is limited by portable technique and body habitus. There is diffuse groundglass opacity of the abdomen which could indicate ascites fluid. Bowel gas pattern is grossly unremarkable, with prominent gas seen within the colon. Cholecystectomy clips are demonstrated Impression: Very limited exam, as described Diffuse groundglass opacity of the abdomen, could be related to body habitus and portable technique, but possibility of ascites should also be considered Grossly unremarkable bowel gas pattern
[2017-05-24] MEDS ORDERED: Sucralfate 1gm tab ORAL SCH (13:00)
[2017-05-24] MEDS ORDERED: Sterile Water Irrig 1000ml IRRIG ONE (13:36)
[2017-05-24] MEDS: Amiodarone 200mg tab ORAL SCH ×2 (13:54→21:00)
--- NOTE | 2017-05-24 17:29 | Diagnostic Imaging Report ---
Indication: Abdominal distention, abnormal liver function test Technique: Brown-scale and duplex images of the upper abdomen were obtained Comparison: Reference made to abdomen pelvis CT and renal ultrasound of 05/21/2017 Findings: Gallbladder is surgically absent. Common bile duct measures 7 mm in diameter. No intrahepatic biliary ductal dilatation. Liver demonstrates diffusely increased echogenicity, consistent with diffuse hepatocellular disease, most likely fatty change. Portal vein and hepatic veins are patent. Pancreas is obscured by bowel gas. Spleen is unremarkable. Left kidney measures 10.4 cm in length. Right kidney measures 10.2 cm length. Both kidneys demonstrate increased echogenicity. There is no hydronephrosis. There are bilateral renal cysts . Abdominal aorta is obscured by bowel gas . There is a moderate amount of ascites fluid present Impression: Surgically absent gallbladder Mildly ectatic common bile duct, most likely secondary to age and post cholecystectomy state. Downstream obstruction not completely excludable, however, and correlation with liver function tests is recommended, and consideration for MRCP if clinically indicated Liver demonstrates diffusely increased echogenicity, consistent with diffuse hepatocellular disease, most likely fatty change. This is also described on prior CT scan Echogenic kidneys, consistent with medical renal disease, as described. No evidence of hydronephrosis Moderate ascites, also previously reported Bilateral renal cysts incidentally noted Note inability to visualize abdominal aorta and pancreas
[2017-05-24] MEDS ORDERED: Sodium Citrate 30ml GT SCH (18:00)
[2017-05-24] MEDS ORDERED: Dyna-Hex 2% Top Sol 2oz TOPIC SCH (20:00)
--- NOTE | 2017-05-24 22:30 | Progress Note ---
DATE: 05/24/2017 CARDIOLOGY PROGRESS NOTE SUBJECTIVE: The patient remains in the intensive care unit. Condition critical. Prognosis guarded. Critical care time spent 55 minutes. The patient's case was reviewed with her sister, Adilene, by telephone. The patient continues to have episodes of rapid atrial fibrillation. She has been converted several times with IV doses of amiodarone. At times, spontaneous conversion was achieved. OBJECTIVE: VITAL SIGNS: Blood pressure 109/82, pulse 102, respiratory rate 20, and afebrile. GENERAL: Ventilated via tracheostomy. LUNGS: Coarse breath sounds with rhonchi. HEART: Irregularly irregular rhythm. Rapid rate. Normal S1, S2. ABDOMEN: Obese. EXTREMITIES: With 1 to 2+ dependent edema. LABORATORY DATA: White count 27.7, hemoglobin 9.7. Sodium 147, potassium 3.4, bicarbonate 23, BUN 52, creatinine 1.7. Pro-natriuretic peptide 8000. Albumin 2.6. Liver function tests are rising. IMPRESSION: 1. Pericardial fluid, may be purulent versus blood. 2. Respiratory failure. 3. Shock with sepsis. 4. Acute on chronic renal failure. 5. Dehydration. 6. Hypernatremia. 7. Hypokalemia. 8. [id number] protein-calorie malnutrition. 9. Shock liver. 10. Paroxysmal atrial fibrillation with rapid ventricular response. 11. Anasarca. PLAN: 1. Amiodarone loading, then oral dosing for maintenance of sinus rhythm. 2. She will need transfer to tertiary care facility for cardiothoracic intervention regarding pericardium. 3. Continue ventilator support. 4. Broad-spectrum antibiotics. 5. Monitor acid-base status. 6. Volume support. 7. Discussed with all consultants. 8. Transfer to higher level of care once bed available. Ramo Toure M.D. DR: Papo JOB#: [id number] CC:
[2017-05-25] VITALS (42 sets, daily range): BP systolic 68–175; BP diastolic 43–160
[2017-05-25] MEDS: Aluminum Hydroxide Gel Susp 15ml GT SCH ×6 (03:59→21:09)
[2017-05-25] MEDS: Sodium Bicarbonate 100 ML in NS 1000ml 1,000 ML IV SCH (04:16)
[2017-05-25 05:11] LABS: MEAN CORPUSCULAR HEMOGLOBIN 29.2 PG (27.0-31.0); MEAN CORPUSCULAR VOLUME 86 FL (80-99); MEAN PLATELET VOLUME 5.9 FL (6.5-10.1); PLATELET COUNT 927 K/UL (150-450); RED BLOOD COUNT 3.43 M/UL (4.20-5.40); RED CELL DISTRIBUTION WIDTH 15.5 % (11.6-14.8)
[2017-05-25 05:27] LABS: WHITE BLOOD COUNT 30.5 K/UL (4.8-10.8)
[2017-05-25 05:44] LABS: ALANINE AMINOTRANSFERASE 146 U/L (12-78); ALBUMIN/GLOBULIN RATIO 0.8 (1.0-2.7); ANION GAP 15 mmol/L (5-15); ASPARTATE AMINO TRANSFERASE 72 U/L (15-37); CALCIUM 8.3 MG/DL (8.5-10.1); CARBON DIOXIDE 28 MMOL/L (21-32); CHLORIDE 109 MMOL/L (98-107); CREATININE 1.6 MG/DL (0.55-1.30); GLOMERULAR FILTRATION RATE 32.6 mL/min (>60); SODIUM 152 MMOL/L (136-145); TOTAL PROTEIN 5.9 G/DL (6.4-8.2)
[2017-05-25] MEDS: metroNIDAZOLE 500mg tab GT SCH ×3 (05:49→22:00)
[2017-05-25 05:51] LABS: POTASSIUM 2.7 MMOL/L (3.5-5.1)
[2017-05-25] MEDS: NovoLOG Insulin Flexpen SUBQ SCH ×4 (05:52→21:08)
[2017-05-25] MEDS ORDERED: dilTIAZem HCl 25mg/5ml Inj IVP ONE ×2 (07:30→14:30)
[2017-05-25 07:35] LABS: CRP QUANT 7.8 mg/dL (0.00-0.90); MAGNESIUM 2.1 MG/DL (1.8-2.4); PHOSPHORUS 6.3 MG/DL (2.5-4.9); URIC ACID 14.2 MG/DL (2.6-7.2)
[2017-05-25] MEDS: Potassium Chloride 10 MEQ in NS 110 ML IVPB SCH ×3 (07:57→09:47)
--- NOTE | 2017-05-25 08:23 | Pulmonology Progress Note ---
Assessment/Plan Assessment/Plan IMPRESSION respiratory failure possible UTI sepsis ARF/CRF hyperkalemia pericardial effusion possible renal cyst vs mass hypertension (now with normal BP off meds) chronic encephalopathy hypothyroidism diabetes possible cirrhosis atrial fib, paroxysmal hyperuricemia pain possible ascites pericardial fluid collection PLAN ventilator management- hyperventilate check ABG today- unable to draw yesterday echo reviewed- had prior CT to confirm MR abdomen and ultrasound when stable repeat US for ascites sliding scale and monitor sugars- monitor ability to tolerate PO feeds as tolerated- need to change per renal with electrolyte imbalance monitor for residuals GT care iv hydration free water GI/renal/ID/cards evaluation monitor clinically antibiotics noted WBC elevated still and not improving watch platelets- now better may need HD- concern with low BP sister discussing DNR medications/laboratory data/nursing notes/ICU care reviewed in detail note reviewed and edited care discussed with RN and RT ICU time spent 45 minutes Subjective ROS Limited/Unobtainable: Yes Allergies: Coded Allergies: OLANZAPINE (Verified Allergy, Severe, RESP FAILURE, 11/25/13) VANCOMYCIN (Verified Allergy, Severe, 11/25/13) PIPERACILLIN (Verified Allergy, Intermediate, HIVES, 11/25/13) TAZOBACTAM (Verified Allergy, Intermediate, HIVES, 11/25/13) Subjective overnight events reviewed labs noted had afib now back in NSR d/w cards and renal moved to ICU for rapid rate- now controlled d/w sister at length x 30 minutes d/w LEROY BLACKMAN for possible transfer update given for transfer d/w all Objective Last 24 Hour Vital Signs Date Time Temp Pulse Resp B/P (MAP) Pulse Ox O2 Delivery O2 Flow Rate FiO2 05/25/17 08:00 79 05/25/17 08:00 80 20 121/91 100 Mechanical Ventilator 05/25/17 08:00 28 05/25/17 07:51 79 16 28 05/25/17 07:30 80 130/94 05/25/17 07:30 80 16 104/88 99 Mechanical Ventilator 05/25/17 07:00 83 20 130/84 100 Mechanical Ventilator 05/25/17 06:00 135 17 137/106 100 Mechanical Ventilator 05/25/17 05:27 130 16 28 05/25/17 05:00 133 16 158/103 100 Mechanical Ventilator 05/25/17 04:00 28 05/25/17 04:00 76 05/25/17 04:00 98.4 76 16 120/98 100 Mechanical Ventilator 28 05/25/17 03:29 77 17 28 05/25/17 03:00 77 16 124/85 100 Mechanical Ventilator 28 05/25/17 02:00 75 16 119/88 100 Mechanical Ventilator 28 05/25/17 01:33 79 16 28 05/25/17 01:00 74 17 118/81 100 Mechanical Ventilator 28 05/25/17 00:00 97.8 71 17 109/78 100 Mechanical Ventilator 28 05/24/17 23:00 74 17 97/71 100 Mechanical Ventilator 28 05/24/17 23:00 74 17 28 05/24/17 22:00 71 16 115/67 100 Mechanical Ventilator 28 05/24/17 21:53 72 16 100 Mechanical Ventilator 28 05/24/17 21:36 28 05/24/17 21:36 69 16 100 Mechanical Ventilator 28 05/24/17 21:25 69 16 28 05/24/17 21:00 70 16 100/67 100 Mechanical Ventilator 28 05/24/17 20:00 69 05/24/17 20:00 97.7 69 16 113/82 100 Mechanical Ventilator 28 05/24/17 20:00 28 05/24/17 19:27 72 17 28 05/24/17 19:00 71 22 102/81 100 Mechanical Ventilator 28 05/24/17 18:00 71 20 129/87 100 Mechanical Ventilator 28 05/24/17 17:30 72 20 100/60 100 Mechanical Ventilator 28 05/24/17 17:15 73 17 28 05/24/17 17:00 74 20 86/73 100 Mechanical Ventilator 28 05/24/17 16:30 76 18 85/54 100 Mechanical Ventilator 28 05/24/17 16:00 97.4 129 20 90/64 100 Mechanical Ventilator 28 05/24/17 16:00 76 05/24/17 16:00 28 05/24/17 15:30 119 18 95/68 100 Mechanical Ventilator 28 05/24/17 15:00 134 20 86/50 100 Mechanical Ventilator 28 05/24/17 14:57 123 17 28 05/24/17 14:00 151 21 92/68 100 Mechanical Ventilator 28 05/24/17 13:00 76 16 93/67 100 Mechanical Ventilator 28 05/24/17 12:48 79 16 28 05/24/17 12:00 28 05/24/17 12:00 86 05/24/17 12:00 84 17 104/69 100 Mechanical Ventilator 28 05/24/17 11:07 102 17 28 05/24/17 11:00 98.5 151 21 137/95 100 Mechanical Ventilator 28 05/24/17 10:13 98.5 104 17 93/79 100 Mechanical Ventilator 28 05/24/17 09:00 102 17 109/81 100 Mechanical Ventilator 28 05/24/17 08:53 103 17 100 Mechanical Ventilator 28 05/24/17 08:42 28 05/24/17 08:42 102 17 28 05/24/17 08:39 102 16 100 Mechanical Ventilator 28 Intake and Output 05/25/17 05/26/17 19:00 07:00 Intake Total 30 ml Output Total 5 ml Balance 25 ml Tube Feeding 30 ml Output Urine Total 5 ml Objective WDWN female chronically ill NAD coarse breath sounds bilaterally without rhonchi or wheeze PIP on vent 50s [id number] without MRG NABS nontender no HSM; protuberant; GT- c/w ascites no CC some edema diffusely short neck unresponsive reviewed and edited Microbiology Date/Time Source Procedure Growth Status 05/23/17 09:00 Blood Blood Culture - Preliminary NO GROWTH AFTER 24 HOURS Resulted 05/23/17 08:45 Blood Blood Culture - Preliminary NO GROWTH AFTER 24 HOURS Resulted 05/23/17 09:45 Sputum Gram Stain - Final Resulted 05/23/17 09:45 Sputum Culture - Preliminary Gram Negative Bacillus 1 Resulted Laboratory Tests 05/25/17 04:00: White Blood Count 30.5*H, Red Blood Count 3.43L, Hemoglobin 10.0L, Hematocrit 29.5L, Mean Corpuscular Volume 86, Mean Corpuscular Hemoglobin 29.2, Mean Corpuscular Hemoglobin Concent 34.0, Red Cell Distribution Width 15.5H, Platelet Count 927H, Mean Platelet Volume 5.9L, Neutrophils (%) (Auto) , Lymphocytes (%) (Auto) , Monocytes (%) (Auto) , Eosinophils (%) (Auto) , Basophils (%) (Auto) , Neutrophils % (Manual) [Pending], Lymphocytes % (Manual) [Pending], Platelet Estimate [Pending], Platelet Morphology [Pending], Sodium Level 152H, Potassium Level 2.7*L, Chloride Level 109H, Carbon Dioxide Level 28 , Anion Gap 15, Blood Urea Nitrogen 54H, Creatinine 1.6H, Estimat Glomerular Filtration Rate 32.6, Glucose Level 226H, Uric Acid 14.2H, Calcium Level 8.3L, Phosphorus Level 6.3H, Magnesium Level 2.1, Total Bilirubin 0.5, Gamma Glutamyl Transpeptidase 304H, Aspartate Amino Transf (AST/SGOT) 72H, Alanine Aminotransferase (ALT/SGPT) 146H, Alkaline Phosphatase 170H, Total Creatine Kinase 8L, C-Reactive Protein, Quantitative 7.8H, Pro-B-Type Natriuretic Peptide 6752H, Total Protein 5.9L, Albumin 2.7L, Globulin 3.2, Albumin/Globulin Ratio 0.8L Current Medications Medications (Trade) Dose Ordered Sig/Alex Route PRN Reason Start Time Stop Time Status Last Admin Dose Admin Acetaminophen (Tylenol) 650 mg Q6H PRN GT Mild Pain/Temp > 100.5 05/23/17 19:15 06/22/17 19:14 Acetaminophen/ Hydrocodone Bitart ([place] 5/325) 1 tab Q4H PRN GT Moderate Pain (Pain Scale 4-6) 05/23/17 19:15 05/30/17 19:14 Albuterol Sulfate (Proventil) 2.5 mg BIDRT HHN 05/23/17 22:00 05/26/17 21:59 05/24/17 21:37 Allopurinol (Allopurinol) 300 mg DAILY ORAL 05/25/17 09:00 06/24/17 08:59 Aluminum Hydroxide (Amphojel) 1,920 mg Q4HR GT 05/24/17 13:00 06/23/17 00:00 05/25/17 05:50 Amiodarone HCl (Cordarone) 200 mg EVERY 12 HOURS ORAL 05/24/17 13:00 06/23/17 12:59 05/24/17 13:54 Amiodarone HCl 900 mg/Dextrose 500 ml @ 0 mls/hr Q24H IV 05/24/17 15:00 05/25/17 14:59 05/24/17 14:58 Atenolol (Tenormin) 12.5 mg DAILY GT 05/24/17 09:00 06/21/17 08:59 05/24/17 09:32 Bisacodyl (Dulcolax) 5 mg DAILYPRN PRN RECTAL Constipation 05/23/17 20:30 06/22/17 20:29 Chlorhexidine Gluconate (Rubina-Hex 2%) 1 applic DAILY@2000 TOPIC 05/24/17 20:00 06/23/17 19:59 05/24/17 21:06 Dextrose (Dextrose 50%) STAT PRN IV Hypoglycemia 05/24/17 08:30 06/23/17 08:29 Dextrose/Sodium Chloride 1,000 ml @ 100 mls/hr Q10H IV 05/25/17 08:30 06/24/17 08:29 Epoetin Amadou (Procrit (for non ESRD use)) 10,000 units SUN-SUN-SUN SUBQ 05/25/17 21:00 06/24/17 20:59 Heparin Sodium (Porcine) (Heparin 5000 units/ml) 5,000 units EVERY 12 HOURS SUBQ 05/23/17 21:00 06/22/17 08:59 05/24/17 21:10 Insulin Aspart (NovoLOG) BEFORE MEALS AND HS SUBQ 05/24/17 11:30 06/23/17 11:29 05/25/17 05:52 Ipratropium [place] (Atrovent) 500 mcg BID HHN 05/24/17 09:00 05/27/17 08:59 05/24/17 21:37 Lactobacillus Acidophilus (Culturelle) 1 tab DAILY GT 05/24/17 09:00 06/21/17 08:59 05/24/17 09:36 Levothyroxine Sodium (Synthroid) 75 mcg ACBREAKFAST GT 05/24/17 06:30 06/21/17 06:29 05/25/17 05:50 Levothyroxine Sodium (Synthroid) 100 mcg ACBREAKFAST GT 05/24/17 06:30 06/21/17 06:29 05/25/17 05:49 Meropenem 1 gm/ Sodium Chloride 55 ml @ 110 mls/hr Q12H IVPB 05/24/17 10:00 05/29/17 09:59 05/24/17 22:11 Metronidazole (Flagyl) 500 mg Q8HR GT 05/23/17 22:00 05/30/17 13:59 05/25/17 05:49 Pantoprazole (Protonix) 40 mg EVERY 12 HOURS IVP 05/23/17 21:00 06/21/17 20:59 05/24/17 21:09 Patient Own Medication (Patient's Own Med) 1 ea QID BOTH EYES 05/23/17 21:00 06/22/17 20:59 05/24/17 21:07 Patient Own Medication (Patient's Own Med) 1 ea QID BOTH EYES 05/23/17 21:00 06/22/17 20:59 05/24/17 21:07 Potassium Chloride 10 meq/ Sodium Chloride 115 ml @ 115 mls/hr Q1H IVPB 05/25/17 08:00 05/25/17 10:59 05/25/17 07:57 Potassium Chloride (KCl 10% 40mEq Oral solution) 40 meq ONCE ONCE NG 05/25/17 08:30 05/25/17 08:31 ANTIONETTE RODRIGUEZ May 25, 2017 08:23
[2017-05-25 08:27] LABS: ANISOCYTOSIS 1+; BAND NEUTROPHILS % (MANUAL) 0 % (0-8); BASOPHILS % (MANUAL) 0 % (0-2); EOSINOPHILS % (MANUAL) 0 % (0-3); HYPOCHROMASIA 1+; LYMPHOCYTES % (MANUAL) 4 % (20-45); NEUTROPHILS % (MANUAL) 89 % (45-75); NUCLEATED RED BLOOD CELLS 6 /100 WBC; PLATELET ESTIMATE INCREASED; POLYCHROMASIA 2+; TOTAL CELLS COUNTED 100
[2017-05-25] MEDS ORDERED: KCl 10% 40mEq/30ml liquid NG ONE (08:30)
[2017-05-25] MEDS ORDERED: D5 1/2NS 1,000 ML IV SCH ×2 (08:30→11:00)
[2017-05-25] MEDS: Ipratropium 0.02% Inh Soln 2.5ml UD HHN SCH ×2 (09:00→19:28)
[2017-05-25] MEDS: Amiodarone 200mg tab ORAL SCH ×2 (09:00→09:21)
[2017-05-25 09:05] LABS: PLATELET MORPHOLOGY NORMAL
[2017-05-25] MEDS: Albuterol ud Inhalation HHN SCH ×2 (09:08→19:27)
--- NOTE | 2017-05-25 09:11 | General Progress Note ---
Assessment/Plan Problem List: (1) Sepsis ICD Codes: A41.9 - Sepsis, unspecified organism SNOMED: 42909727 (2) Pneumonia ICD Codes: J18.9 - Pneumonia, unspecified organism SNOMED: 804646077 (3) Acute renal failure ICD Codes: N17.9 - Acute kidney failure, unspecified SNOMED: 01669947 (4) Pericardial effusion ICD Codes: I31.3 - Pericardial effusion (noninflammatory) SNOMED: 301933623 (5) Tracheostomy malfunction ICD Codes: J95.03 - Malfunction of tracheostomy stoma SNOMED: 95224468 (6) UTI (urinary tract infection) ICD Codes: N39.0 - Urinary tract infection, site not specified SNOMED: 89848368, 062841539 Qualifiers: Qualified Codes: N30.01 - Acute cystitis with hematuria Status: not improved, deteriorating Assessment/Plan ivf iv abx follow up cultures vent support resp rx monitor renal fxn poor prognosis. d/w caregiver. dnr try to transfer to tertiary hospital for pericardial drainage remains critical and guarded prognosis remains poor Subjective ROS Limited/Unobtainable: Yes Constitutional: Reports: malaise, weakness HEENT: Reports: no symptoms Cardiovascular: Reports: irregular heart rate Respiratory: Reports: shortness of breath Gastrointestinal/Abdominal: Reports: abdomen distended Genitourinary: Reports: no symptoms Neurologic/Psychiatric: Reports: pre-existing deficit Endocrine: Reports: no symptoms Hematologic/Lymphatic: Reports: anemia Allergies: Coded Allergies: OLANZAPINE (Verified Allergy, Severe, RESP FAILURE, 11/25/13) VANCOMYCIN (Verified Allergy, Severe, 11/25/13) PIPERACILLIN (Verified Allergy, Intermediate, HIVES, 11/25/13) TAZOBACTAM (Verified Allergy, Intermediate, HIVES, 11/25/13) All Systems: reviewed and negative except above Subjective no events. doing poorly. intermittent svt. minimal uop. bp stable. Objective Last 24 Hour Vital Signs Date Time Temp Pulse Resp B/P (MAP) Pulse Ox O2 Delivery O2 Flow Rate FiO2 05/25/17 08:00 79 05/25/17 08:00 80 20 121/91 100 Mechanical Ventilator 28 05/25/17 08:00 28 05/25/17 07:51 79 16 28 05/25/17 07:30 80 130/94 05/25/17 07:30 80 16 104/88 99 Mechanical Ventilator 28 05/25/17 07:00 83 20 130/84 100 Mechanical Ventilator 28 05/25/17 06:00 135 17 137/106 100 Mechanical Ventilator 28 05/25/17 05:27 130 16 28 05/25/17 05:00 133 16 158/103 100 Mechanical Ventilator 28 05/25/17 04:00 28 05/25/17 04:00 76 05/25/17 04:00 98.4 76 16 120/98 100 Mechanical Ventilator 28 05/25/17 03:29 77 17 28 05/25/17 03:00 77 16 124/85 100 Mechanical Ventilator 28 05/25/17 02:00 75 16 119/88 100 Mechanical Ventilator 28 05/25/17 01:33 79 16 28 05/25/17 01:00 74 17 118/81 100 Mechanical Ventilator 28 05/25/17 00:00 97.8 71 17 109/78 100 Mechanical Ventilator 28 05/24/17 23:00 74 17 97/71 100 Mechanical Ventilator 28 05/24/17 23:00 74 17 28 05/24/17 22:00 71 16 115/67 100 Mechanical Ventilator 28 05/24/17 21:53 72 16 100 Mechanical Ventilator 28 05/24/17 21:36 28 05/24/17 21:36 69 16 100 Mechanical Ventilator 28 05/24/17 21:25 69 16 28 05/24/17 21:00 70 16 100/67 100 Mechanical Ventilator 28 05/24/17 20:00 69 05/24/17 20:00 97.7 69 16 113/82 100 Mechanical Ventilator 28 05/24/17 20:00 28 05/24/17 19:27 72 17 28 05/24/17 19:00 71 22 102/81 100 Mechanical Ventilator 28 05/24/17 18:00 71 20 129/87 100 Mechanical Ventilator 28 05/24/17 17:30 72 20 100/60 100 Mechanical Ventilator 28 05/24/17 17:15 73 17 28 05/24/17 17:00 74 20 86/73 100 Mechanical Ventilator 28 05/24/17 16:30 76 18 85/54 100 Mechanical Ventilator 28 05/24/17 16:00 97.4 129 20 90/64 100 Mechanical Ventilator 28 05/24/17 16:00 76 05/24/17 16:00 28 05/24/17 15:30 119 18 95/68 100 Mechanical Ventilator 28 05/24/17 15:00 134 20 86/50 100 Mechanical Ventilator 28 05/24/17 14:57 123 17 28 05/24/17 14:00 151 21 92/68 100 Mechanical Ventilator 28 05/24/17 13:00 76 16 93/67 100 Mechanical Ventilator 28 05/24/17 12:48 79 16 28 05/24/17 12:00 28 05/24/17 12:00 86 05/24/17 12:00 84 17 104/69 100 Mechanical Ventilator 28 05/24/17 11:07 102 17 28 05/24/17 11:00 98.5 151 21 137/95 100 Mechanical Ventilator 28 05/24/17 10:13 98.5 104 17 93/79 100 Mechanical Ventilator 28 Intake and Output 05/25/17 05/26/17 19:00 07:00 Intake Total 30 ml Output Total 5 ml Balance 25 ml Tube Feeding 30 ml Output Urine Total 5 ml Laboratory Tests 05/25/17 04:00: White Blood Count 30.5*H, Red Blood Count 3.43L, Hemoglobin 10.0L, Hematocrit 29.5L, Mean Corpuscular Volume 86, Mean Corpuscular Hemoglobin 29.2, Mean Corpuscular Hemoglobin Concent 34.0, Red Cell Distribution Width 15.5H, Platelet Count 927H, Mean Platelet Volume 5.9L, Neutrophils (%) (Auto) , Lymphocytes (%) (Auto) , Monocytes (%) (Auto) , Eosinophils (%) (Auto) , Basophils (%) (Auto) , Differential Total Cells Counted 100, Neutrophils % ( Manual) 89H, Lymphocytes % (Manual) 4L, Monocytes % (Manual) 7, Eosinophils % ( Manual) 0, Basophils % (Manual) 0, Band Neutrophils 0, Nucleated Red Blood Cells 6, Platelet Estimate IncreasedH, Platelet Morphology Normal, Polychromasia 2+, Hypochromasia 1+, Anisocytosis 1+, Sodium Level 152H, Potassium Level 2.7*L, Chloride Level 109H, Carbon Dioxide Level 28, Anion Gap 15, Blood Urea Nitrogen 54H, Creatinine 1.6H, Estimat Glomerular Filtration Rate 32.6, Glucose Level 226H, Uric Acid 14.2H, Calcium Level 8.3L, Phosphorus Level 6.3H, Magnesium Level 2.1, Total Bilirubin 0.5, Gamma Glutamyl Transpeptidase 304H, Aspartate Amino Transf (AST/SGOT) 72H, Alanine Aminotransferase (ALT/SGPT) 146H, Alkaline Phosphatase 170H, Total Creatine Kinase 8L, C-Reactive Protein, Quantitative 7.8H, Pro-B-Type Natriuretic Peptide 6752H, Total Protein 5.9L, Albumin 2.7L, Globulin 3.2, Albumin/Globulin Ratio 0.8L Height (Feet): 5 Height (Inches): 0.00 Weight (Pounds): 198 General Appearance: WD/WN, overweight, obese Neck: supple Respiratory/Chest: rhonchi - bilaterally Abdomen: decreased bowel sounds, distended Edema: moderate edema Neurologic: unresponsive, aphasia OCHOA BISWAS May 25, 2017 09:11
[2017-05-25] MEDS: Pantoprazole Inj IVP SCH ×2 (09:21→21:00)
[2017-05-25] MEDS: SYSTANE BOTH EYES SCH ×4 (09:21→21:00)
[2017-05-25] MEDS: Lactobacillus-GG tablet GT SCH (09:21)
[2017-05-25] MEDS: [UNRECOGNIZED DRUG - OTHER] BOTH EYES SCH ×4 (09:21→20:59)
[2017-05-25] MEDS: Heparin 5000 units/ml inj SUBQ SCH ×2 (09:22→21:07)
[2017-05-25 09:32] LABS: ABG ALLEN TEST POSITIVE; ABG BASE EXCESS -7.9; ABG PCO2 37.7 mmHg (35.0-45.0)
[2017-05-25] MEDS: Meropenem 1 GM in NS 55 ML IVPB SCH ×2 (09:47→22:00)
[2017-05-25] MEDS: Atenolol 12.5mg PO SCH (10:45)
[2017-05-25 11:56] LABS: INR 1.5 (0.9-1.1); PROTHROMBIN TIME 16.1 SEC (9.30-11.50)
--- NOTE | 2017-05-25 12:44 | Infectious Diseases Prog Note ---
Assessment/Plan Assessment/Plan antibiotics : meropenem, flagyl A 1. klebsiella UTI 2. leucocytosis 3. respiratory failure 4. DM 5. HTN 6. anoxic brain injury 7. pericardial effusion 8. gram negative pneumonia P 1. continue meropenem, flagyl 2. will follow up cultures Subjective ROS Limited/Unobtainable: Yes Allergies: Coded Allergies: OLANZAPINE (Verified Allergy, Severe, RESP FAILURE, 11/25/13) VANCOMYCIN (Verified Allergy, Severe, 11/25/13) PIPERACILLIN (Verified Allergy, Intermediate, HIVES, 11/25/13) TAZOBACTAM (Verified Allergy, Intermediate, HIVES, 11/25/13) Objective Vital Signs Last 24 Hour Vital Signs Date Time Temp Pulse Resp B/P (MAP) Pulse Ox O2 Delivery O2 Flow Rate FiO2 05/25/17 12:30 88 19 128/111 98 Mechanical Ventilator 28 05/25/17 12:00 97.7 88 18 140/92 100 Mechanical Ventilator 28 05/25/17 12:00 109 05/25/17 12:00 28 05/25/17 11:30 90 20 119/90 100 Mechanical Ventilator 28 05/25/17 11:29 155 18 28 05/25/17 11:00 154 19 175/160 100 Mechanical Ventilator 28 05/25/17 10:30 146 18 161/105 100 Mechanical Ventilator 28 05/25/17 10:00 87 16 148/91 100 Mechanical Ventilator 05/25/17 09:57 80 18 28 05/25/17 09:30 138 17 146/103 100 Mechanical Ventilator 28 05/25/17 09:10 Mechanical Ventilator 28 05/25/17 09:09 133 16 100 Mechanical Ventilator 28 05/25/17 09:00 135 17 157/126 100 Mechanical Ventilator 28 05/25/17 08:30 97.5 79 16 155/88 100 Mechanical Ventilator 28 05/25/17 08:00 79 05/25/17 08:00 80 20 121/91 100 Mechanical Ventilator 28 05/25/17 08:00 28 05/25/17 07:51 79 16 28 05/25/17 07:30 80 130/94 05/25/17 07:30 80 16 104/88 99 Mechanical Ventilator 28 05/25/17 07:00 83 20 130/84 100 Mechanical Ventilator 28 05/25/17 06:00 135 17 137/106 100 Mechanical Ventilator 28 05/25/17 05:27 130 16 28 05/25/17 05:00 133 16 158/103 100 Mechanical Ventilator 28 05/25/17 04:00 28 05/25/17 04:00 76 05/25/17 04:00 98.4 76 16 120/98 100 Mechanical Ventilator 28 05/25/17 03:29 77 17 28 05/25/17 03:00 77 16 124/85 100 Mechanical Ventilator 28 05/25/17 02:00 75 16 119/88 100 Mechanical Ventilator 28 05/25/17 01:33 79 16 28 05/25/17 01:00 74 17 118/81 100 Mechanical Ventilator 28 05/25/17 00:00 97.8 71 17 109/78 100 Mechanical Ventilator 28 05/24/17 23:00 74 17 97/71 100 Mechanical Ventilator 28 05/24/17 23:00 74 17 28 05/24/17 22:00 71 16 115/67 100 Mechanical Ventilator 28 05/24/17 21:53 72 16 100 Mechanical Ventilator 28 05/24/17 21:36 28 05/24/17 21:36 69 16 100 Mechanical Ventilator 28 05/24/17 21:25 69 16 28 05/24/17 21:00 70 16 100/67 100 Mechanical Ventilator 28 05/24/17 20:00 69 05/24/17 20:00 97.7 69 16 113/82 100 Mechanical Ventilator 28 05/24/17 20:00 28 05/24/17 19:27 72 17 28 05/24/17 19:00 71 22 102/81 100 Mechanical Ventilator 28 05/24/17 18:00 71 20 129/87 100 Mechanical Ventilator 28 05/24/17 17:30 72 20 100/60 100 Mechanical Ventilator 28 05/24/17 17:15 73 17 28 05/24/17 17:00 74 20 86/73 100 Mechanical Ventilator 28 05/24/17 16:30 76 18 85/54 100 Mechanical Ventilator 28 05/24/17 16:00 97.4 129 20 90/64 100 Mechanical Ventilator 28 05/24/17 16:00 76 05/24/17 16:00 28 05/24/17 15:30 119 18 95/68 100 Mechanical Ventilator 28 05/24/17 15:00 134 20 86/50 100 Mechanical Ventilator 28 05/24/17 14:57 123 17 28 05/24/17 14:00 151 21 92/68 100 Mechanical Ventilator 28 05/24/17 13:00 76 16 93/67 100 Mechanical Ventilator 28 05/24/17 12:48 79 16 28 Height (Feet): 5 Height (Inches): 0.00 Weight (Pounds): 198 HEENT: status post trach Respiratory/Chest: lungs clear Cardiovascular: normal rate, regular rhythm, no gallop/murmur Abdomen: soft, non tender, other - GT Extremities: other - + edema bilaterally, right arm PICC Microbiology Date/Time Source Procedure Growth Status 05/23/17 09:00 Blood Blood Culture - Preliminary NO GROWTH AFTER 24 HOURS Resulted 05/23/17 08:45 Blood Blood Culture - Preliminary NO GROWTH AFTER 24 HOURS Resulted 05/23/17 09:45 Sputum Gram Stain - Final Resulted 05/23/17 09:45 Sputum Culture - Preliminary Gram Negative Bacillus 1 Resulted Laboratory Tests Test 05/25/17 04:00 05/25/17 09:25 05/25/17 10:30 White Blood Count 30.5 K/UL (4.8-10.8) *H Red Blood Count 3.43 M/UL (4.20-5.40) L Hemoglobin 10.0 G/DL (12.0-16.0) L Hematocrit 29.5 % (37.0-47.0) L Mean Corpuscular Volume 86 FL (80-99) Mean Corpuscular Hemoglobin 29.2 PG (27.0-31.0) Mean Corpuscular Hemoglobin Concent 34.0 G/DL (32.0-36.0) Red Cell Distribution Width 15.5 % (11.6-14.8) H Platelet Count 927 K/UL (150-450) H Mean Platelet Volume 5.9 FL (6.5-10.1) L Neutrophils (%) (Auto) % (45.0-75.0) Lymphocytes (%) (Auto) % (20.0-45.0) Monocytes (%) (Auto) % (1.0-10.0) Eosinophils (%) (Auto) % (0.0-3.0) Basophils (%) (Auto) % (0.0-2.0) Differential Total Cells Counted 100 Neutrophils % (Manual) 89 % (45-75) H Lymphocytes % (Manual) 4 % (20-45) L Monocytes % (Manual) 7 % (1-10) Eosinophils % (Manual) 0 % (0-3) Basophils % (Manual) 0 % (0-2) Band Neutrophils 0 % (0-8) Nucleated Red Blood Cells 6 /100 WBC Platelet Estimate Increased H Platelet Morphology Normal Polychromasia 2+ Hypochromasia 1+ Anisocytosis 1+ Sodium Level 152 MMOL/L (136-145) H Potassium Level 2.7 MMOL/L (3.5-5.1) *L Chloride Level 109 MMOL/L (98-107) H Carbon Dioxide Level 28 MMOL/L (21-32) Anion Gap 15 mmol/L (5-15) Blood Urea Nitrogen 54 mg/dL (7-18) H Creatinine 1.6 MG/DL (0.55-1.30) H Estimat Glomerular Filtration Rate 32.6 mL/min (>60) Glucose Level 226 MG/DL (74-106) H Uric Acid 14.2 MG/DL (2.6-7.2) H Calcium Level 8.3 MG/DL (8.5-10.1) L Phosphorus Level 6.3 MG/DL (2.5-4.9) H Magnesium Level 2.1 MG/DL (1.8-2.4) Total Bilirubin 0.5 MG/DL (0.2-1.0) Gamma Glutamyl Transpeptidase 304 U/L (5-85) H Aspartate Amino Transf (AST/SGOT) 72 U/L (15-37) H Alanine Aminotransferase (ALT/SGPT) 146 U/L (12-78) H Alkaline Phosphatase 170 U/L (46-116) H Total Creatine Kinase 8 U/L (26-308) L C-Reactive Protein, Quantitative 7.8 mg/dL (0.00-0.90) H Pro-B-Type Natriuretic Peptide 6752 pg/mL (0-125) H Total Protein 5.9 G/DL (6.4-8.2) L Albumin 2.7 G/DL (3.4-5.0) L Globulin 3.2 g/dL Albumin/Globulin Ratio 0.8 (1.0-2.7) L Arterial Blood pH 7.295 (7.350-7.450) Arterial Blood Partial Pressure CO2 37.7 mmHg (35.0-45.0) Arterial Blood Partial Pressure O2 34.9 mmHg (75.0-100.0) Arterial Blood HCO3 17.9 mmol/L (22.0-26.0) L Arterial Blood Oxygen Saturation 58.4 % (92.0-98.0) L Arterial Blood Base Excess -7.9 Jayden Test Positive Prothrombin Time 16.1 SEC (9.30-11.50) H Prothromb Time International Ratio 1.5 (0.9-1.1) H Activated Partial Thromboplast Time 30 SEC (23-33) ERIKA DICKERSON May 25, 2017 12:44
[2017-05-25] MEDS ORDERED: Lidocaine 1% Plain 30 ml INJ ONE (14:45)
[2017-05-25] MEDS ORDERED: Heparin 2000 units/Ns 1000ml IV ONE (14:45)
[2017-05-25] MEDS ORDERED: Amiodarone 900 MG in D5W 500ml 482 ML IV SCH (15:00)
[2017-05-25] MEDS: Norco 5mg/325mg tab GT PRN ×2 (16:19→21:02)
[2017-05-25] MEDS: D5 1/2NS 1,000 ML IV SCH (16:30)
--- NOTE | 2017-05-25 16:30 | Nephrology Progress Note ---
Assessment/Plan Problem List: (1) Acute renal failure (2) Sepsis (3) UTI (urinary tract infection) (4) Tracheostomy dependence (5) Hypotension Assessment Cr up 1.6 Urine out put remains low persistantly -. Acute renal failure due to ? sepsis , intravascular volume depletion, low BP... Cr rising- Urine out put down- -. Hypoalbuminemia: - Increase loss: NS - Decrease production: Nutritional -. Shock, sepsis, pneumonia, pericardial effusion. -. History of hypertension, now with low blood pressure. -. Hyperkalemia. improved -. Hyponatremia. improved -. Prerenal azotemia. -. Respiratory failure with tracheostomy. -. Anasarca with ascites. due to low Albumin -. HypoThyroidism . Plan dialysis and UF trial as BP remains stable STOP ALL NON FORMULARY SUPPLEMENTS- Diet to Nepro- Amphojel as Phos binder- Antibiotics- DC Bicitra IV protonix Pulmonary support- Keep BP in check Monitor renal parameters- Avoid nephrotoxics 24 H urine for proteins pending per orders talked to [facility] care rep and Dr De León 05/23 Long phone conversation with sister who requests transfer to [facility] 05/23 down on IV fluid discussed with PHIL Fernandez Subjective ROS Limited/Unobtainable: No Constitutional: Reports: malaise Objective Objective Last 24 Hour Vital Signs Date Time Temp Pulse Resp B/P (MAP) Pulse Ox O2 Delivery O2 Flow Rate FiO2 05/25/17 15:34 114 18 28 05/25/17 14:33 155 113/81 05/25/17 13:30 154 19 28 05/25/17 12:30 88 19 128/111 98 Mechanical Ventilator 05/25/17 12:00 97.7 88 18 140/92 100 Mechanical Ventilator 05/25/17 12:00 109 05/25/17 12:00 28 05/25/17 11:30 90 20 119/90 100 Mechanical Ventilator 05/25/17 11:29 155 18 28 05/25/17 11:00 154 19 175/160 100 Mechanical Ventilator 05/25/17 10:30 146 18 161/105 100 Mechanical Ventilator 05/25/17 10:00 87 16 148/91 100 Mechanical Ventilator 05/25/17 09:57 80 18 28 05/25/17 09:30 138 17 146/103 100 Mechanical Ventilator 05/25/17 09:10 Mechanical Ventilator 28 05/25/17 09:09 133 16 100 Mechanical Ventilator 28 05/25/17 09:00 135 17 157/126 100 Mechanical Ventilator 28 05/25/17 08:30 97.5 79 16 155/88 100 Mechanical Ventilator 28 05/25/17 08:00 79 05/25/17 08:00 80 20 121/91 100 Mechanical Ventilator 28 05/25/17 08:00 28 05/25/17 07:51 79 16 28 05/25/17 07:30 80 130/94 05/25/17 07:30 80 16 104/88 99 Mechanical Ventilator 28 05/25/17 07:00 83 20 130/84 100 Mechanical Ventilator 28 05/25/17 06:00 135 17 137/106 100 Mechanical Ventilator 28 05/25/17 05:27 130 16 28 05/25/17 05:00 133 16 158/103 100 Mechanical Ventilator 28 05/25/17 04:00 28 05/25/17 04:00 76 05/25/17 04:00 98.4 76 16 120/98 100 Mechanical Ventilator 28 05/25/17 03:29 77 17 28 05/25/17 03:00 77 16 124/85 100 Mechanical Ventilator 28 05/25/17 02:00 75 16 119/88 100 Mechanical Ventilator 28 05/25/17 01:33 79 16 28 05/25/17 01:00 74 17 118/81 100 Mechanical Ventilator 28 05/25/17 00:00 97.8 71 17 109/78 100 Mechanical Ventilator 28 05/24/17 23:00 74 17 97/71 100 Mechanical Ventilator 28 05/24/17 23:00 74 17 28 05/24/17 22:00 71 16 115/67 100 Mechanical Ventilator 28 05/24/17 21:53 72 16 100 Mechanical Ventilator 28 05/24/17 21:36 28 05/24/17 21:36 69 16 100 Mechanical Ventilator 28 05/24/17 21:25 69 16 28 05/24/17 21:00 70 16 100/67 100 Mechanical Ventilator 28 05/24/17 20:00 69 05/24/17 20:00 97.7 69 16 113/82 100 Mechanical Ventilator 28 05/24/17 20:00 28 05/24/17 19:27 72 17 28 05/24/17 19:00 71 22 102/81 100 Mechanical Ventilator 28 05/24/17 18:00 71 20 129/87 100 Mechanical Ventilator 28 05/24/17 17:30 72 20 100/60 100 Mechanical Ventilator 28 05/24/17 17:15 73 17 28 05/24/17 17:00 74 20 86/73 100 Mechanical Ventilator 28 05/24/17 16:30 76 18 85/54 100 Mechanical Ventilator 28 Intake and Output 05/25/17 05/26/17 19:00 07:00 Intake Total 603.30 ml Output Total 15 ml Balance 588.30 ml IV Total 303.30 ml Tube Feeding 240 ml Other 60 ml Output Urine Total 15 ml # Bowel Movements 1 Laboratory Tests 05/25/17 04:00: White Blood Count 30.5*H, Red Blood Count 3.43L, Hemoglobin 10.0L, Hematocrit 29.5L, Mean Corpuscular Volume 86, Mean Corpuscular Hemoglobin 29.2, Mean Corpuscular Hemoglobin Concent 34.0, Red Cell Distribution Width 15.5H, Platelet Count 927H, Mean Platelet Volume 5.9L, Neutrophils (%) (Auto) , Lymphocytes (%) (Auto) , Monocytes (%) (Auto) , Eosinophils (%) (Auto) , Basophils (%) (Auto) , Differential Total Cells Counted 100, Neutrophils % ( Manual) 89H, Lymphocytes % (Manual) 4L, Monocytes % (Manual) 7, Eosinophils % ( Manual) 0, Basophils % (Manual) 0, Band Neutrophils 0, Nucleated Red Blood Cells 6, Platelet Estimate IncreasedH, Platelet Morphology Normal, Polychromasia 2+, Hypochromasia 1+, Anisocytosis 1+, Sodium Level 152H, Potassium Level 2.7*L, Chloride Level 109H, Carbon Dioxide Level 28, Anion Gap 15, Blood Urea Nitrogen 54H, Creatinine 1.6H, Estimat Glomerular Filtration Rate 32.6, Glucose Level 226H, Uric Acid 14.2H, Calcium Level 8.3L, Phosphorus Level 6.3H, Magnesium Level 2.1, Total Bilirubin 0.5, Gamma Glutamyl Transpeptidase 304H, Aspartate Amino Transf (AST/SGOT) 72H, Alanine Aminotransferase (ALT/SGPT) 146H, Alkaline Phosphatase 170H, Total Creatine Kinase 8L, C-Reactive Protein, Quantitative 7.8H, Pro-B-Type Natriuretic Peptide 6752H, Total Protein 5.9L, Albumin 2.7L, Globulin 3.2, Albumin/Globulin Ratio 0.8L 05/25/17 09:25: Arterial Blood pH 7.295L, Arterial Blood Partial Pressure CO2 37.7, Arterial Blood Partial Pressure O2 34.9*L, Arterial Blood HCO3 17.9L, Arterial Blood Oxygen Saturation 58.4L, Arterial Blood Base Excess -7.9, Jayden Test Positive 05/25/17 10:30: Prothrombin Time 16.1H, Prothromb Time International Ratio 1.5H, Activated Partial Thromboplast Time 30 Height (Feet): 5 Height (Inches): 0.00 Weight (Pounds): 198 General Appearance: no apparent distress Cardiovascular: tachycardia Respiratory/Chest: decreased breath sounds Abdomen: distended, other - ascitis Extremities: other - edematous Objective no other changes QIANA SALGADO May 25, 2017 16:30
--- NOTE | 2017-05-25 17:17 | Pre-Procedure Note/Attestation ---
Pre-Procedure Note/Attestation Complete Prior to Procedure Planned Procedure: not applicable Procedure Narrative: Dialysis catheter Indications for Procedure Pre-Operative Diagnosis: ARF Attestation I attest that I discussed the nature of the procedure; its benefits; risks and complications; and alternatives (and the risks and benefits of such alternatives ), prior to the procedure, with the patient (or the patient's legal insurance healthcare representative). I attest that, if there was a reasonable possibility of needing a blood transfusion, the patient (or the patient's legal insurance healthcare representative) was given the [facility] standardized written summary, pursuant to the [place] Blood Safety Act ([place] Health and Safety Code # 1645, as amended). I attest that I re-evaluated the patient just prior to the surgery and that there has been no change in the patient's H&P, except as documented below: Discussed in person with pts. sister REBECA PACHECO M.D. May 25, 2017 17:17
--- NOTE | 2017-05-25 17:34 | Diagnostic Imaging Report ---
Indication: Renal failure Technique: Procedure performed at bedside. Procedural timeout performed. Total sterile technique, including sterile probe cover and sterile gel, sterile gloves, hand hygiene, hat, mask, sterile gown, large sterile drape, and preparation with 2% chlorhexidine utilized. Local anesthesia with 1% lidocaine. Under real-time ultrasound guidance, puncture right internal jugular vein using 21 -gauge micropuncture needle, passage 0.018 guidewire, insertion 4 [place] micropuncture introducer, passage 0.035 guidewire, over which was passed serial dilators and then a 13 [place] 16 cm triple-lumen temporary dialysis catheter. Guidewire was removed. Catheter ports were aspirated and flushed. The catheter was fixed to the skin. Patient tolerated procedure well. A chest x-ray was obtained, documents catheter tip position at the midsuperior vena cava, no pneumothorax. Comparison: None Findings: As above Impression: Successful bedside placement of right transjugular temporary dialysis catheter, as described.
--- NOTE | 2017-05-25 17:37 | Diagnostic Imaging Report ---
Indications: Ascites Technique: Ultrasound used to localize optimal puncture site. Sterile prepping and draping . Local anesthesia with 1% lidocaine. Under real-time ultrasound guidance, puncture peritoneal space using paracentesis needle. Stylet removed. Catheter placed to vacuum bottle suction. Total 2 liters of fluid aspirated. Patient tolerated procedure well, without immediate complication. Findings: Followup sonography demonstrates complete resolution of peritoneal fluid. Impression: Successful ultrasound-guided paracentesis, yielding 2 liters of fluid
[2017-05-25] MEDS: Dyna-Hex 2% Top Sol 2oz TOPIC SCH (20:08)
[2017-05-25] MEDS: Epogen (for non ESRD use) SUBQ SCH (21:00)
--- NOTE | 2017-05-25 21:44 | General Progress Note ---
Assessment/Plan Assessment/Plan Assessment - Encephalopathy - Resp failure - Trach - dysphagia - PEG - edema / anasarca - abd distention due to ascites - UTI/PNA - leukocytosis - azotemia - pericardial effusion - marked thrombocytosis - poor Px Recommendations - continue TF - cardiology f/u - hold off on GT change - check C Diff - u/s guided paracentesis - continue abx Subjective Allergies: Coded Allergies: OLANZAPINE (Verified Allergy, Severe, RESP FAILURE, 11/25/13) VANCOMYCIN (Verified Allergy, Severe, 11/25/13) PIPERACILLIN (Verified Allergy, Intermediate, HIVES, 11/25/13) TAZOBACTAM (Verified Allergy, Intermediate, HIVES, 11/25/13) Subjective d/w RN tolerating TF abd more distended, and more firm d/w DTR - agreed to paracentesis to reduce intra-abd pressure also advised need to r/o SBP Objective Last 24 Hour Vital Signs Date Time Temp Pulse Resp B/P (MAP) Pulse Ox O2 Delivery O2 Flow Rate FiO2 05/25/17 21:30 67 18 28 05/25/17 19:46 69 16 100 Mechanical Ventilator 28 05/25/17 19:29 68 17 28 05/25/17 19:29 68 17 99 Mechanical Ventilator 28 05/25/17 19:29 28 05/25/17 19:00 69 20 94/75 97 Mechanical Ventilator 05/25/17 18:30 122 20 118/86 100 Mechanical Ventilator 28 05/25/17 18:00 78 20 105/82 100 Mechanical Ventilator 05/25/17 17:41 97.6 05/25/17 17:30 76 20 125/86 100 Mechanical Ventilator 28 05/25/17 17:16 123 18 28 05/25/17 17:00 124 20 106/84 100 Mechanical Ventilator 28 05/25/17 16:30 126 20 145/90 100 Mechanical Ventilator 28 05/25/17 16:00 97.6 123 20 125/92 100 Mechanical Ventilator 28 05/25/17 16:00 28 05/25/17 16:00 131 05/25/17 15:34 114 18 28 05/25/17 15:30 78 19 106/76 99 Mechanical Ventilator 28 05/25/17 15:00 81 18 116/98 98 Mechanical Ventilator 28 05/25/17 14:33 155 113/81 05/25/17 14:30 85 18 129/85 97 Mechanical Ventilator 28 05/25/17 14:00 140 19 113/81 100 Mechanical Ventilator 28 05/25/17 13:30 106 20 111/81 99 Mechanical Ventilator 28 05/25/17 13:30 154 19 28 05/25/17 13:00 141 20 121/91 100 Mechanical Ventilator 28 05/25/17 12:30 88 19 128/111 98 Mechanical Ventilator 28 05/25/17 12:00 97.7 88 18 140/92 100 Mechanical Ventilator 28 05/25/17 12:00 109 05/25/17 12:00 28 05/25/17 11:30 90 20 119/90 100 Mechanical Ventilator 28 05/25/17 11:29 155 18 28 05/25/17 11:00 154 19 175/160 100 Mechanical Ventilator 28 05/25/17 10:30 146 18 161/105 100 Mechanical Ventilator 28 05/25/17 10:00 87 16 148/91 100 Mechanical Ventilator 28 05/25/17 09:57 80 18 28 05/25/17 09:30 138 17 146/103 100 Mechanical Ventilator 28 05/25/17 09:10 Mechanical Ventilator 28 05/25/17 09:09 133 16 100 Mechanical Ventilator 28 05/25/17 09:00 135 17 157/126 100 Mechanical Ventilator 28 05/25/17 08:30 97.5 79 16 155/88 100 Mechanical Ventilator 28 05/25/17 08:00 79 05/25/17 08:00 80 20 121/91 100 Mechanical Ventilator 28 05/25/17 08:00 28 05/25/17 07:51 79 16 28 05/25/17 07:30 80 130/94 05/25/17 07:30 80 16 104/88 99 Mechanical Ventilator 28 05/25/17 07:00 83 20 130/84 100 Mechanical Ventilator 28 05/25/17 06:00 135 17 137/106 100 Mechanical Ventilator 28 05/25/17 05:27 130 16 28 05/25/17 05:00 133 16 158/103 100 Mechanical Ventilator 28 05/25/17 04:00 28 05/25/17 04:00 76 05/25/17 04:00 98.4 76 16 120/98 100 Mechanical Ventilator 28 05/25/17 03:29 77 17 28 05/25/17 03:00 77 16 124/85 100 Mechanical Ventilator 28 05/25/17 02:00 75 16 119/88 100 Mechanical Ventilator 28 05/25/17 01:33 79 16 28 05/25/17 01:00 74 17 118/81 100 Mechanical Ventilator 28 05/25/17 00:00 97.8 71 17 109/78 100 Mechanical Ventilator 28 05/24/17 23:00 74 17 97/71 100 Mechanical Ventilator 28 05/24/17 23:00 74 17 28 05/24/17 22:00 71 16 115/67 100 Mechanical Ventilator 28 05/24/17 21:53 72 16 100 Mechanical Ventilator 28 Intake and Output 05/25/17 05/26/17 19:00 07:00 Intake Total 858.94 ml Output Total 15 ml Balance 843.94 ml IV Total 438.94 ml Tube Feeding 360 ml Other 60 ml Output Urine Total 15 ml # Bowel Movements 1 Laboratory Tests 05/25/17 04:00: White Blood Count 30.5*H, Red Blood Count 3.43L, Hemoglobin 10.0L, Hematocrit 29.5L, Mean Corpuscular Volume 86, Mean Corpuscular Hemoglobin 29.2, Mean Corpuscular Hemoglobin Concent 34.0, Red Cell Distribution Width 15.5H, Platelet Count 927H, Mean Platelet Volume 5.9L, Neutrophils (%) (Auto) , Lymphocytes (%) (Auto) , Monocytes (%) (Auto) , Eosinophils (%) (Auto) , Basophils (%) (Auto) , Differential Total Cells Counted 100, Neutrophils % ( Manual) 89H, Lymphocytes % (Manual) 4L, Monocytes % (Manual) 7, Eosinophils % ( Manual) 0, Basophils % (Manual) 0, Band Neutrophils 0, Nucleated Red Blood Cells 6, Platelet Estimate IncreasedH, Platelet Morphology Normal, Polychromasia 2+, Hypochromasia 1+, Anisocytosis 1+, Sodium Level 152H, Potassium Level 2.7*L, Chloride Level 109H, Carbon Dioxide Level 28, Anion Gap 15, Blood Urea Nitrogen 54H, Creatinine 1.6H, Estimat Glomerular Filtration Rate 32.6, Glucose Level 226H, Uric Acid 14.2H, Calcium Level 8.3L, Phosphorus Level 6.3H, Magnesium Level 2.1, Total Bilirubin 0.5, Gamma Glutamyl Transpeptidase 304H, Aspartate Amino Transf (AST/SGOT) 72H, Alanine Aminotransferase (ALT/SGPT) 146H, Alkaline Phosphatase 170H, Total Creatine Kinase 8L, C-Reactive Protein, Quantitative 7.8H, Pro-B-Type Natriuretic Peptide 6752H, Total Protein 5.9L, Albumin 2.7L, Globulin 3.2, Albumin/Globulin Ratio 0.8L 05/25/17 09:25: Arterial Blood pH 7.295L, Arterial Blood Partial Pressure CO2 37.7, Arterial Blood Partial Pressure O2 34.9*L, Arterial Blood HCO3 17.9L, Arterial Blood Oxygen Saturation 58.4L, Arterial Blood Base Excess -7.9, Jayden Test Positive 05/25/17 10:30: Prothrombin Time 16.1H, Prothromb Time International Ratio 1.5H, Activated Partial Thromboplast Time 30 05/25/17 16:00: Body Fluid Source [Pending], Body Fluid Volume [Pending], Body Fluid Appearance [Pending], Body Fluid RBC [Pending], Body Fluid Total Nucleated Cells [Pending] , Body Fluid Polynuclear WBCs (%) [Pending], Body Fluid Mononuclear WBCs (%) [ Pending], Body Fluid Mesothelial Cells (%) [Pending] Height (Feet): 5 Height (Inches): 0.00 Weight (Pounds): 198 Objective Obese WW NCAT supple Chest: coarse BS RRR obese, firm and distended abd, (+) GT (++) edema / anasarca OBS ZINAJILL STROUD May 25, 2017 21:44
[2017-05-25 21:49] LABS: APPEARANCE, BODY FLUID HAZY; BD FL VOLUME 28 mL
[2017-05-25 21:50] LABS: BD FL SOURCE PARACENTESIS; BODY FLUID NUCLEATED CELLS 170 /CUMM; BODY FLUID RBC 350 /CUMM; MONONUCLEAR WBC 30 %; POLYMORPHONUCLEAR WBC 68 %
--- NOTE | 2017-05-25 22:30 | Progress Note ---
DATE: 05/25/2017 CARDIOLOGY PROGRESS NOTE SUBJECTIVE: The patient's condition remains critical. Prognosis guarded. She remains in the intensive care unit. Her renal function has worsened. Her urine output is poor and she remains intravascularly volume depleted with low range blood pressure readings. Monitored rhythm. Recurring tach rhythm with rapid atrial fibrillation. OBJECTIVE: GENERAL: Ventilated via tracheostomy. VITAL SIGNS: Blood pressure 113/81, pulse 155 and respiratory rate 19. LUNGS: Bilateral rales. HEART: Irregularly irregular rhythm. Normal S1 and S2. ABDOMEN: Obese. EXTREMITIES: With 2 to 3+ pitting edema. LABORATORY AND DIAGNOSTIC DATA: White count 30 and hemoglobin 10. Sputum positive for gram-negative bacillus. Urine positive for Klebsiella pneumonia. ABG, pH 7.29, pCO2 38, and pO2 35. This is a venous gas. Sodium 152, potassium 2.7, bicarbonate 28, BUN 54, and creatinine 1.6. Pro-natriuretic peptide 6700. IMPRESSION: 1. Multiorgan system failure. 2. Sepsis. 3. Pneumonia. 4. Acute on chronic diastolic congestive heart failure. 5. Acute renal failure. 6. Dehydration. 7. Hypernatremia. 8. Hypokalemia. 9. Hyperuricemia. 10. Moderate protein-calorie malnutrition. 11. Shock liver. 12. Sepsis due to pneumonia and urinary tract infection, recovering shock. PLAN: 1. Dialysis access. 2. Hemodialysis anticipated with ultrafiltration as tolerated. 3. IV amiodarone loading for now. 4. Broad-spectrum antibiotics per Infectious Disease new vehicle sales consultant. 5. Continue free water replacement. 6. Maintain beta-sarah as tolerated by blood pressure. 7. Potassium replacement. Ramo Toure M.D. DR: ISRAEL JOB#: [id number] CC:
[2017-05-26] VITALS (48 sets, daily range): BP systolic 70–152; BP diastolic 43–112
[2017-05-26] MEDS: Aluminum Hydroxide Gel Susp 15ml GT SCH ×6 (01:33→21:14)
[2017-05-26] MEDS ORDERED: Meropenem 1 GM in NS 55 ML IVPB SCH ×2 (04:00→16:00)
[2017-05-26] MEDS: metroNIDAZOLE 500mg tab GT SCH ×3 (04:09→20:12)
[2017-05-26 05:18] LABS: MEAN CORPUSCULAR HEMOGLOBIN 28.6 PG (27.0-31.0); MEAN CORPUSCULAR HGB CONC 33.6 G/DL (32.0-36.0); MEAN CORPUSCULAR VOLUME 85 FL (80-99); MEAN PLATELET VOLUME 5.6 FL (6.5-10.1); PLATELET COUNT 823 K/UL (150-450); RED CELL DISTRIBUTION WIDTH 15.2 % (11.6-14.8); WHITE BLOOD COUNT 33.3 K/UL (4.8-10.8)
[2017-05-26 06:05] LABS: ALANINE AMINOTRANSFERASE 168 U/L (12-78); ALBUMIN/GLOBULIN RATIO 0.7 (1.0-2.7); ANION GAP 13 mmol/L (5-15); ASPARTATE AMINO TRANSFERASE 88 U/L (15-37); CALCIUM 8.3 MG/DL (8.5-10.1); CARBON DIOXIDE 30 MMOL/L (21-32); CHLORIDE 105 MMOL/L (98-107); CREATININE 1.4 MG/DL (0.55-1.30); CRP QUANT 6.9 mg/dL (0.00-0.90); GLOMERULAR FILTRATION RATE 38.1 mL/min (>60); MAGNESIUM 1.9 MG/DL (1.8-2.4); PHOSPHORUS 4.1 MG/DL (2.5-4.9); POTASSIUM 2.9 MMOL/L (3.5-5.1); SODIUM 148 MMOL/L (136-145); TOTAL PROTEIN 5.7 G/DL (6.4-8.2); URIC ACID 10.3 MG/DL (2.6-7.2)
[2017-05-26] MEDS: NovoLOG Insulin Flexpen SUBQ SCH ×4 (06:16→21:05)
[2017-05-26 07:57] LABS: ANISOCYTOSIS 1+; BAND NEUTROPHILS % (MANUAL) 0 % (0-8); BASOPHILS % (MANUAL) 0 % (0-2); EOSINOPHILS % (MANUAL) 0 % (0-3); HYPOCHROMASIA 1+; LYMPHOCYTES % (MANUAL) 8 % (20-45); NEUTROPHILS % (MANUAL) 85 % (45-75); NUCLEATED RED BLOOD CELLS 6 /100 WBC; PLATELET ESTIMATE ADEQUATE; PLATELET MORPHOLOGY NORMAL; POLYCHROMASIA 2+; TOTAL CELLS COUNTED 100
[2017-05-26] MEDS ORDERED: KCl 10% 40mEq/30ml liquid GT ONE (08:30)
[2017-05-26] MEDS: Pantoprazole Inj IVP SCH ×2 (08:53→21:03)
[2017-05-26] MEDS: Heparin 5000 units/ml inj SUBQ SCH ×2 (08:54→21:05)
[2017-05-26] MEDS: Atenolol 12.5mg PO SCH (08:54)
[2017-05-26] MEDS: Lactobacillus-GG tablet GT SCH (08:54)
[2017-05-26 08:58] LABS: OTHERS PATHOLOGIST COMMENT
[2017-05-26] MEDS: [UNRECOGNIZED DRUG - OTHER] BOTH EYES SCH ×4 (09:03→21:03)
[2017-05-26] MEDS: SYSTANE BOTH EYES SCH ×4 (09:03→21:00)
--- NOTE | 2017-05-26 09:08 | Nephrology Progress Note ---
Assessment/Plan Problem List: (1) Acute renal failure (2) Sepsis (3) UTI (urinary tract infection) (4) Tracheostomy dependence (5) Hypotension Assessment dialysed early this am 05/26 and 850 cc removed- Ascitic tap 2 liter removed 05/25 Urine out put remains low persistantly -. Acute renal failure due to ? sepsis , intravascular volume depletion, low BP... Cr rising- Urine out put down- -. Hypoalbuminemia: - Increase loss: NS - Decrease production: Nutritional -. Shock, sepsis, pneumonia, pericardial effusion. -. History of hypertension, now with low blood pressure. -. Hyperkalemia. improved -. Hyponatremia. improved -. Prerenal azotemia. -. Respiratory failure with tracheostomy. -. Anasarca with ascites. due to low Albumin -. HypoThyroidism . Plan K supplement dialysis and UF trial as BP remains stable STOP ALL NON FORMULARY SUPPLEMENTS- Diet to Nepro- Amphojel as Phos binder- Antibiotics- DC Bicitra IV protonix Pulmonary support- Keep BP in check Monitor renal parameters- Avoid nephrotoxics 24 H urine for proteins pending per orders talked to [facility] account [facility] and Dr De León 05/23 Long phone conversation with sister who requests transfer to [facility] 05/23 down on IV fluid discussed with PHIL Fernandez Subjective ROS Limited/Unobtainable: Yes Objective Objective Last 24 Hour Vital Signs Date Time Temp Pulse Resp B/P (MAP) Pulse Ox O2 Delivery O2 Flow Rate FiO2 05/26/17 07:11 134 18 05/26/17 07:00 132 19 101/70 99 Mechanical Ventilator 05/26/17 06:30 130 16 93/79 99 Mechanical Ventilator 05/26/17 06:00 134 16 123/93 99 Mechanical Ventilator 05/26/17 05:30 135 17 108/77 98 Mechanical Ventilator 05/26/17 05:30 131 18 105/81 99 Mechanical Ventilator 05/26/17 05:20 70 16 05/26/17 05:19 Endotracheal Tube 05/26/17 05:13 Mechanical Ventilator 05/26/17 05:00 69 16 109/77 98 Mechanical Ventilator 05/26/17 04:30 68 17 125/91 98 Mechanical Ventilator 05/26/17 04:00 68 05/26/17 04:00 28 05/26/17 04:00 98.2 68 17 107/83 99 Mechanical Ventilator 28 05/26/17 03:30 64 19 123/73 100 Mechanical Ventilator 28 05/26/17 03:29 64 16 28 05/26/17 03:00 73 16 89/65 100 Mechanical Ventilator 28 05/26/17 02:30 75 16 79/53 100 Mechanical Ventilator 28 05/26/17 02:00 76 16 75/48 99 Mechanical Ventilator 28 05/26/17 01:30 72 16 78/61 100 Mechanical Ventilator 28 05/26/17 01:17 69 17 28 05/26/17 01:00 76 18 77/43 99 Mechanical Ventilator 28 05/26/17 01:00 73 16 91/61 100 Mechanical Ventilator 28 05/26/17 00:30 80 22 70/53 99 Mechanical Ventilator 28 05/26/17 00:13 97.5 141 05/26/17 00:10 80 05/26/17 00:00 97.7 80 22 74/47 99 Mechanical Ventilator 28 05/26/17 00:00 28 05/25/17 23:30 80 21 68/51 100 Mechanical Ventilator 28 05/25/17 23:00 76 19 102/80 100 Mechanical Ventilator 28 05/25/17 22:53 75 17 28 05/25/17 22:30 121 17 114/94 100 Mechanical Ventilator 28 05/25/17 22:00 69 17 114/72 100 Mechanical Ventilator 28 05/25/17 21:45 97.5 141 20 114/72 100 Mechanical Ventilator 28 05/25/17 21:45 Mechanical Ventilator 05/25/17 21:30 67 18 28 05/25/17 21:30 68 17 105/74 100 Mechanical Ventilator 28 05/25/17 21:30 97.5 141 20 114/72 Mechanical Ventilator 05/25/17 21:00 69 17 121/75 100 Mechanical Ventilator 28 05/25/17 20:30 72 16 104/70 100 Mechanical Ventilator 28 05/25/17 20:11 71 05/25/17 20:00 28 05/25/17 20:00 97.9 69 18 125/77 100 Mechanical Ventilator 28 05/25/17 19:46 69 16 100 Mechanical Ventilator 28 05/25/17 19:30 70 17 95/73 99 Mechanical Ventilator 28 05/25/17 19:29 68 17 28 05/25/17 19:29 68 17 99 Mechanical Ventilator 28 05/25/17 19:29 28 05/25/17 19:00 69 20 94/75 97 Mechanical Ventilator 28 05/25/17 18:30 122 20 118/86 100 Mechanical Ventilator 28 05/25/17 18:00 78 20 105/82 100 Mechanical Ventilator 28 05/25/17 17:41 97.6 05/25/17 17:30 76 20 125/86 100 Mechanical Ventilator 28 05/25/17 17:16 123 18 28 05/25/17 17:00 124 20 106/84 100 Mechanical Ventilator 28 05/25/17 16:30 126 20 145/90 100 Mechanical Ventilator 28 05/25/17 16:00 97.6 123 20 125/92 100 Mechanical Ventilator 28 05/25/17 16:00 28 05/25/17 16:00 131 05/25/17 15:34 114 18 28 05/25/17 15:30 78 19 106/76 99 Mechanical Ventilator 28 05/25/17 15:00 81 18 116/98 98 Mechanical Ventilator 28 05/25/17 14:33 155 113/81 05/25/17 14:30 85 18 129/85 97 Mechanical Ventilator 28 05/25/17 14:00 140 19 113/81 100 Mechanical Ventilator 28 05/25/17 13:30 106 20 111/81 99 Mechanical Ventilator 28 05/25/17 13:30 154 19 28 05/25/17 13:00 141 20 121/91 100 Mechanical Ventilator 28 05/25/17 12:30 88 19 128/111 98 Mechanical Ventilator 28 05/25/17 12:00 97.7 88 18 140/92 100 Mechanical Ventilator 28 05/25/17 12:00 109 05/25/17 12:00 28 05/25/17 11:30 90 20 119/90 100 Mechanical Ventilator 28 05/25/17 11:29 155 18 28 05/25/17 11:00 154 19 175/160 100 Mechanical Ventilator 28 05/25/17 10:30 146 18 161/105 100 Mechanical Ventilator 28 05/25/17 10:00 87 16 148/91 100 Mechanical Ventilator 28 05/25/17 09:57 80 18 28 05/25/17 09:30 138 17 146/103 100 Mechanical Ventilator 28 05/25/17 09:10 Mechanical Ventilator 28 05/25/17 09:09 133 16 100 Mechanical Ventilator 28 Laboratory Tests 05/25/17 09:25: Arterial Blood pH 7.295L, Arterial Blood Partial Pressure CO2 37.7, Arterial Blood Partial Pressure O2 34.9*L, Arterial Blood HCO3 17.9L, Arterial Blood Oxygen Saturation 58.4L, Arterial Blood Base Excess -7.9, Jayden Test Positive 05/25/17 10:30: Prothrombin Time 16.1H, Prothromb Time International Ratio 1.5H, Activated Partial Thromboplast Time 30 05/25/17 16:00: Body Fluid Source Paracentesis, Body Fluid Volume 28, Body Fluid Appearance Hazy , Body Fluid RBC 350, Body Fluid Total Nucleated Cells 170, Body Fluid Polynuclear WBCs (%) 68, Body Fluid Mononuclear WBCs (%) 30, Body Fluid Mesothelial Cells (%) 2 05/26/17 04:50: White Blood Count 33.3*H, Red Blood Count 3.60L, Hemoglobin 10.3L, Hematocrit 30.6L, Mean Corpuscular Volume 85, Mean Corpuscular Hemoglobin 28.6, Mean Corpuscular Hemoglobin Concent 33.6, Red Cell Distribution Width 15.2H, Platelet Count 823H, Mean Platelet Volume 5.6L, Neutrophils (%) (Auto) , Lymphocytes (%) (Auto) , Monocytes (%) (Auto) , Eosinophils (%) (Auto) , Basophils (%) (Auto) , Differential Total Cells Counted 100, Neutrophils % ( Manual) 85H, Lymphocytes % (Manual) 8L, Monocytes % (Manual) 7, Eosinophils % ( Manual) 0, Basophils % (Manual) 0, Band Neutrophils 0, Nucleated Red Blood Cells 6, Platelet Estimate Adequate, Platelet Morphology Normal, Polychromasia 2 +, Hypochromasia 1+, Anisocytosis 1+, Sodium Level 148H, Potassium Level 2.9L, Chloride Level 105, Carbon Dioxide Level 30, Anion Gap 13, Blood Urea Nitrogen 38H, Creatinine 1.4H, Estimat Glomerular Filtration Rate 38.1, Glucose Level 209H, Uric Acid 10.3H, Calcium Level 8.3L, Phosphorus Level 4.1, Magnesium Level 1.9, Total Bilirubin 0.6, Gamma Glutamyl Transpeptidase 472H, Aspartate Amino Transf (AST/SGOT) 88H, Alanine Aminotransferase (ALT/SGPT) 168H, Alkaline Phosphatase 190H, C-Reactive Protein, Quantitative 6.9H, Pro-B-Type Natriuretic Peptide 8024H, Total Protein 5.7L, Albumin 2.4L, Globulin 3.3, Albumin/Globulin Ratio 0.7L Height (Feet): 5 Height (Inches): 0.00 Weight (Pounds): 205 General Appearance: no apparent distress EENT: other - on vent Cardiovascular: tachycardia Respiratory/Chest: decreased breath sounds Abdomen: distended Extremities: other - edema Objective no other changes QIANA SALGADO May 26, 2017 09:08
--- NOTE | 2017-05-26 09:27 | Pulmonology Progress Note ---
Assessment/Plan Assessment/Plan IMPRESSION respiratory failure possible UTI sepsis ARF/CRF hyperkalemia pericardial effusion possible renal cyst vs mass hypertension (now with normal BP off meds) chronic encephalopathy hypothyroidism diabetes possible cirrhosis atrial fib, paroxysmal hyperuricemia pain possible ascites pericardial fluid collection PLAN ventilator management- hyperventilate and monitor VBG noted echo reviewed- had prior CT to confirm - still awaiting transfer MR abdomen and ultrasound when stable repeat US for ascites with tap completed sliding scale and monitor sugars- monitor ability to tolerate PO monitor for residuals GT care iv hydration with caution free water GI/renal/ID/cards evaluation monitor clinically antibiotics noted- may need additional coverage WBC elevated still and not improving- ID aware watch platelets- now better HD- concern with low BP sister discussing DNR medications/laboratory data/nursing notes/ICU care reviewed in detail note reviewed and edited care discussed with RN and RT ICU time spent 45 minutes Subjective ROS Limited/Unobtainable: Yes Allergies: Coded Allergies: OLANZAPINE (Verified Allergy, Severe, RESP FAILURE, 11/25/13) VANCOMYCIN (Verified Allergy, Severe, 11/25/13) PIPERACILLIN (Verified Allergy, Intermediate, HIVES, 11/25/13) TAZOBACTAM (Verified Allergy, Intermediate, HIVES, 11/25/13) Subjective overnight events reviewed labs noted still with RVR d/w cards and renal d/w sister at length x 30 minutes update given for transfer underwent tap underwent HD Objective Last 24 Hour Vital Signs Date Time Temp Pulse Resp B/P (MAP) Pulse Ox O2 Delivery O2 Flow Rate FiO2 05/26/17 07:11 134 18 28 05/26/17 07:00 132 19 101/70 99 Mechanical Ventilator 05/26/17 06:30 130 16 93/79 99 Mechanical Ventilator 05/26/17 06:00 134 16 123/93 99 Mechanical Ventilator 05/26/17 05:30 135 17 108/77 98 Mechanical Ventilator 05/26/17 05:30 131 18 105/81 99 Mechanical Ventilator 05/26/17 05:20 70 16 28 05/26/17 05:19 Endotracheal Tube 05/26/17 05:13 Mechanical Ventilator 05/26/17 05:00 69 16 109/77 98 Mechanical Ventilator 05/26/17 04:30 68 17 125/91 98 Mechanical Ventilator 05/26/17 04:00 68 05/26/17 04:00 28 05/26/17 04:00 98.2 68 17 107/83 99 Mechanical Ventilator 28 05/26/17 03:30 64 19 123/73 100 Mechanical Ventilator 28 05/26/17 03:29 64 16 28 05/26/17 03:00 73 16 89/65 100 Mechanical Ventilator 28 05/26/17 02:30 75 16 79/53 100 Mechanical Ventilator 28 05/26/17 02:00 76 16 75/48 99 Mechanical Ventilator 28 05/26/17 01:30 72 16 78/61 100 Mechanical Ventilator 28 05/26/17 01:17 69 17 28 05/26/17 01:00 76 18 77/43 99 Mechanical Ventilator 28 05/26/17 01:00 73 16 91/61 100 Mechanical Ventilator 28 05/26/17 00:30 80 22 70/53 99 Mechanical Ventilator 28 05/26/17 00:13 97.5 141 05/26/17 00:10 80 05/26/17 00:00 97.7 80 22 74/47 99 Mechanical Ventilator 28 05/26/17 00:00 28 05/25/17 23:30 80 21 68/51 100 Mechanical Ventilator 28 05/25/17 23:00 76 19 102/80 100 Mechanical Ventilator 28 05/25/17 22:53 75 17 28 05/25/17 22:30 121 17 114/94 100 Mechanical Ventilator 28 05/25/17 22:00 69 17 114/72 100 Mechanical Ventilator 28 05/25/17 21:45 97.5 141 20 114/72 100 Mechanical Ventilator 28 05/25/17 21:45 Mechanical Ventilator 05/25/17 21:30 67 18 28 05/25/17 21:30 68 17 105/74 100 Mechanical Ventilator 28 05/25/17 21:30 97.5 141 20 114/72 Mechanical Ventilator 05/25/17 21:00 69 17 121/75 100 Mechanical Ventilator 28 05/25/17 20:30 72 16 104/70 100 Mechanical Ventilator 28 05/25/17 20:11 71 05/25/17 20:00 28 05/25/17 20:00 97.9 69 18 125/77 100 Mechanical Ventilator 28 05/25/17 19:46 69 16 100 Mechanical Ventilator 28 05/25/17 19:30 70 17 95/73 99 Mechanical Ventilator 28 05/25/17 19:29 68 17 28 05/25/17 19:29 68 17 99 Mechanical Ventilator 28 05/25/17 19:29 28 05/25/17 19:00 69 20 94/75 97 Mechanical Ventilator 28 05/25/17 18:30 122 20 118/86 100 Mechanical Ventilator 28 05/25/17 18:00 78 20 105/82 100 Mechanical Ventilator 28 05/25/17 17:41 97.6 05/25/17 17:30 76 20 125/86 100 Mechanical Ventilator 28 05/25/17 17:16 123 18 28 05/25/17 17:00 124 20 106/84 100 Mechanical Ventilator 28 05/25/17 16:30 126 20 145/90 100 Mechanical Ventilator 28 05/25/17 16:00 97.6 123 20 125/92 100 Mechanical Ventilator 28 05/25/17 16:00 28 05/25/17 16:00 131 05/25/17 15:34 114 18 28 05/25/17 15:30 78 19 106/76 99 Mechanical Ventilator 28 05/25/17 15:00 81 18 116/98 98 Mechanical Ventilator 28 05/25/17 14:33 155 113/81 05/25/17 14:30 85 18 129/85 97 Mechanical Ventilator 28 05/25/17 14:00 140 19 113/81 100 Mechanical Ventilator 28 05/25/17 13:30 106 20 111/81 99 Mechanical Ventilator 28 05/25/17 13:30 154 19 28 05/25/17 13:00 141 20 121/91 100 Mechanical Ventilator 28 05/25/17 12:30 88 19 128/111 98 Mechanical Ventilator 28 05/25/17 12:00 97.7 88 18 140/92 100 Mechanical Ventilator 28 05/25/17 12:00 109 05/25/17 12:00 28 05/25/17 11:30 90 20 119/90 100 Mechanical Ventilator 28 05/25/17 11:29 155 18 28 05/25/17 11:00 154 19 175/160 100 Mechanical Ventilator 28 05/25/17 10:30 146 18 161/105 100 Mechanical Ventilator 28 05/25/17 10:00 87 16 148/91 100 Mechanical Ventilator 28 05/25/17 09:57 80 18 28 05/25/17 09:30 138 17 146/103 100 Mechanical Ventilator 28 Objective WDWN female chronically ill NAD coarse breath sounds bilaterally without rhonchi or wheeze PIP on vent slightly improved [id number] tachy without MRG NABS nontender no HSM; protuberant; GT- less distended no CC some edema diffusely short neck unresponsive reviewed and edited Microbiology Date/Time Source Procedure Growth Status 05/23/17 09:45 Sputum Gram Stain - Final Resulted 05/23/17 09:45 Sputum Culture - Preliminary Gram Negative Bacillus 1 Gram Negative Bacillus 2 Resulted Laboratory Tests 05/25/17 10:30: Prothrombin Time 16.1H, Prothromb Time International Ratio 1.5H, Activated Partial Thromboplast Time 30 05/25/17 16:00: Body Fluid Source Paracentesis, Body Fluid Volume 28, Body Fluid Appearance Hazy , Body Fluid RBC 350, Body Fluid Total Nucleated Cells 170, Body Fluid Polynuclear WBCs (%) 68, Body Fluid Mononuclear WBCs (%) 30, Body Fluid Mesothelial Cells (%) 2 05/26/17 04:50: White Blood Count 33.3*H, Red Blood Count 3.60L, Hemoglobin 10.3L, Hematocrit 30.6L, Mean Corpuscular Volume 85, Mean Corpuscular Hemoglobin 28.6, Mean Corpuscular Hemoglobin Concent 33.6, Red Cell Distribution Width 15.2H, Platelet Count 823H, Mean Platelet Volume 5.6L, Neutrophils (%) (Auto) , Lymphocytes (%) (Auto) , Monocytes (%) (Auto) , Eosinophils (%) (Auto) , Basophils (%) (Auto) , Differential Total Cells Counted 100, Neutrophils % ( Manual) 85H, Lymphocytes % (Manual) 8L, Monocytes % (Manual) 7, Eosinophils % ( Manual) 0, Basophils % (Manual) 0, Band Neutrophils 0, Nucleated Red Blood Cells 6, Platelet Estimate Adequate, Platelet Morphology Normal, Polychromasia 2 +, Hypochromasia 1+, Anisocytosis 1+, Sodium Level 148H, Potassium Level 2.9L, Chloride Level 105, Carbon Dioxide Level 30, Anion Gap 13, Blood Urea Nitrogen 38H, Creatinine 1.4H, Estimat Glomerular Filtration Rate 38.1, Glucose Level 209H, Uric Acid 10.3H, Calcium Level 8.3L, Phosphorus Level 4.1, Magnesium Level 1.9, Total Bilirubin 0.6, Gamma Glutamyl Transpeptidase 472H, Aspartate Amino Transf (AST/SGOT) 88H, Alanine Aminotransferase (ALT/SGPT) 168H, Alkaline Phosphatase 190H, C-Reactive Protein, Quantitative 6.9H, Pro-B-Type Natriuretic Peptide 8024H, Total Protein 5.7L, Albumin 2.4L, Globulin 3.3, Albumin/Globulin Ratio 0.7L Current Medications Medications (Trade) Dose Ordered Sig/Alex Route PRN Reason Start Time Stop Time Status Last Admin Dose Admin Acetaminophen (Tylenol) 650 mg Q6H PRN GT Mild Pain/Temp > 100.5 05/23/17 19:15 06/22/17 19:14 Acetaminophen/ Hydrocodone Bitart ([place] 5/325) 1 tab Q4H PRN GT Moderate Pain (Pain Scale 4-6) 05/23/17 19:15 05/30/17 19:14 05/25/17 21:02 Albuterol Sulfate (Proventil) 2.5 mg BIDRT HHN 05/23/17 22:00 05/26/17 21:59 05/25/17 19:27 Allopurinol (Allopurinol) 300 mg DAILY ORAL 05/25/17 09:00 06/24/17 08:59 05/26/17 08:54 Aluminum Hydroxide (Amphojel) 1,920 mg Q4HR GT 05/24/17 13:00 06/23/17 00:00 05/26/17 08:53 Amiodarone HCl 900 mg/Dextrose 500 ml @ 16.66 mls/ hr Q24H IV 05/25/17 15:00 05/26/17 14:59 05/25/17 15:00 Atenolol (Tenormin) 12.5 mg DAILY PO 05/25/17 11:00 06/24/17 10:59 05/25/17 10:45 Bisacodyl (Dulcolax) 5 mg DAILYPRN PRN RECTAL Constipation 05/23/17 20:30 06/22/17 20:29 Chlorhexidine Gluconate ([place]-Hex 2%) 1 applic DAILY@2000 TOPIC 05/25/17 20:00 06/24/17 19:59 05/25/17 20:08 Dextrose (Dextrose 50%) STAT PRN IV Hypoglycemia 05/24/17 08:30 06/23/17 08:29 Dextrose/Sodium Chloride 1,000 ml @ 30 mls/hr Q24H IV 05/25/17 16:30 06/24/17 16:29 05/25/17 16:30 Epoetin Amadou (Procrit (for non ESRD use)) 10,000 units SUN-WED-SUN SUBQ 05/25/17 21:00 06/24/17 20:59 05/25/17 21:00 Heparin Sodium (Porcine) (Heparin 5000 units/ml) 5,000 units EVERY 12 HOURS SUBQ 05/23/17 21:00 06/22/17 08:59 05/26/17 08:54 Insulin Aspart (NovoLOG) BEFORE MEALS AND HS SUBQ 05/24/17 11:30 06/23/17 11:29 05/26/17 06:16 Ipratropium [place] (Atrovent) 500 mcg BID HHN 05/24/17 09:00 05/27/17 08:59 05/25/17 19:28 Lactobacillus Acidophilus (Culturelle) 1 tab DAILY GT 05/24/17 09:00 06/21/17 08:59 05/26/17 08:54 Levothyroxine Sodium (Synthroid) 75 mcg ACBREAKFAST GT 05/24/17 06:30 06/21/17 06:29 05/26/17 06:15 Levothyroxine Sodium (Synthroid) 100 mcg ACBREAKFAST GT 05/24/17 06:30 06/21/17 06:29 05/26/17 06:15 Meropenem 1 gm/ Sodium Chloride 55 ml @ 110 mls/hr Q12H IVPB 05/26/17 04:00 05/31/17 03:59 05/26/17 04:10 Metronidazole (Flagyl) 500 mg Q8H GT 05/26/17 04:00 05/30/17 03:59 05/26/17 04:09 Pantoprazole (Protonix) 40 mg EVERY 12 HOURS IVP 05/23/17 21:00 06/21/17 20:59 05/26/17 08:53 Patient Own Medication (Patient's Own Med) 1 ea QID BOTH EYES 05/23/17 21:00 06/22/17 20:59 05/26/17 09:03 Patient Own Medication (Patient's Own Med) 1 ea QID BOTH EYES 05/23/17 21:00 06/22/17 20:59 05/26/17 09:03 ANTIONETTE RODRIGUEZ May 26, 2017 09:27
[2017-05-26] MEDS: Ipratropium 0.02% Inh Soln 2.5ml UD HHN SCH ×2 (09:56→21:19)
[2017-05-26] MEDS: Albuterol ud Inhalation HHN SCH ×2 (09:56→21:19)
[2017-05-26] MEDS: Norco 5mg/325mg tab GT PRN (10:34)
--- NOTE | 2017-05-26 11:28 | Infectious Diseases Prog Note ---
Assessment/Plan Assessment/Plan antibiotics : meropenem, flagyl A 1. klebsiella UTI 2. leucocytosis 3. respiratory failure 4. DM 5. HTN 6. anoxic brain injury 7. pericardial effusion 8. gram negative pneumonia P 1. continue meropenem, flagyl 2. will follow up cultures Subjective ROS Limited/Unobtainable: Yes Allergies: Coded Allergies: OLANZAPINE (Verified Allergy, Severe, RESP FAILURE, 11/25/13) VANCOMYCIN (Verified Allergy, Severe, 11/25/13) PIPERACILLIN (Verified Allergy, Intermediate, HIVES, 11/25/13) TAZOBACTAM (Verified Allergy, Intermediate, HIVES, 11/25/13) Objective Vital Signs Last 24 Hour Vital Signs Date Time Temp Pulse Resp B/P (MAP) Pulse Ox O2 Delivery O2 Flow Rate FiO2 05/26/17 11:01 79 18 28 05/26/17 10:00 131 18 98/74 99 Mechanical Ventilator 28 05/26/17 09:46 144 16 100 Mechanical Ventilator 28 05/26/17 09:35 28 05/26/17 09:35 132 18 99 Mechanical Ventilator 15.0 05/26/17 09:30 70 18 103/73 99 Mechanical Ventilator 28 05/26/17 09:30 132 17 28 05/26/17 09:00 72 17 100/77 99 Mechanical Ventilator 28 05/26/17 09:00 28 05/26/17 08:30 131 17 110/76 99 Mechanical Ventilator 28 05/26/17 08:00 97.5 71 12 89/57 98 Mechanical Ventilator 28 05/26/17 08:00 153 05/26/17 07:30 131 15 81/62 99 Mechanical Ventilator 28 05/26/17 07:11 134 18 28 05/26/17 07:00 132 19 101/70 99 Mechanical Ventilator 28 05/26/17 06:30 130 16 93/79 99 Mechanical Ventilator 28 05/26/17 06:00 134 16 123/93 99 Mechanical Ventilator 28 05/26/17 05:30 135 17 108/77 98 Mechanical Ventilator 28 05/26/17 05:30 131 18 105/81 99 Mechanical Ventilator 28 05/26/17 05:20 70 16 28 05/26/17 05:19 Endotracheal Tube 28 05/26/17 05:13 Mechanical Ventilator 28 05/26/17 05:00 69 16 109/77 98 Mechanical Ventilator 28 05/26/17 04:30 68 17 125/91 98 Mechanical Ventilator 28 05/26/17 04:00 68 05/26/17 04:00 28 05/26/17 04:00 98.2 68 17 107/83 99 Mechanical Ventilator 28 05/26/17 03:30 64 19 123/73 100 Mechanical Ventilator 28 05/26/17 03:29 64 16 28 05/26/17 03:00 73 16 89/65 100 Mechanical Ventilator 28 05/26/17 02:30 75 16 79/53 100 Mechanical Ventilator 28 05/26/17 02:00 76 16 75/48 99 Mechanical Ventilator 28 05/26/17 01:30 72 16 78/61 100 Mechanical Ventilator 28 05/26/17 01:17 69 17 28 05/26/17 01:00 76 18 77/43 99 Mechanical Ventilator 28 05/26/17 01:00 73 16 91/61 100 Mechanical Ventilator 28 05/26/17 00:30 80 22 70/53 99 Mechanical Ventilator 28 05/26/17 00:13 97.5 141 05/26/17 00:10 80 05/26/17 00:00 97.7 80 22 74/47 99 Mechanical Ventilator 28 05/26/17 00:00 28 05/25/17 23:30 80 21 68/51 100 Mechanical Ventilator 28 05/25/17 23:00 76 19 102/80 100 Mechanical Ventilator 28 05/25/17 22:53 75 17 28 05/25/17 22:30 121 17 114/94 100 Mechanical Ventilator 28 05/25/17 22:00 69 17 114/72 100 Mechanical Ventilator 28 05/25/17 21:45 97.5 141 20 114/72 100 Mechanical Ventilator 28 05/25/17 21:45 Mechanical Ventilator 05/25/17 21:30 67 18 28 05/25/17 21:30 68 17 105/74 100 Mechanical Ventilator 28 05/25/17 21:30 97.5 141 20 114/72 Mechanical Ventilator 05/25/17 21:00 69 17 121/75 100 Mechanical Ventilator 28 05/25/17 20:30 72 16 104/70 100 Mechanical Ventilator 28 05/25/17 20:11 71 05/25/17 20:00 28 05/25/17 20:00 97.9 69 18 125/77 100 Mechanical Ventilator 28 05/25/17 19:46 69 16 100 Mechanical Ventilator 28 05/25/17 19:30 70 17 95/73 99 Mechanical Ventilator 28 05/25/17 19:29 68 17 28 05/25/17 19:29 68 17 99 Mechanical Ventilator 28 05/25/17 19:29 28 05/25/17 19:00 69 20 94/75 97 Mechanical Ventilator 28 05/25/17 18:30 122 20 118/86 100 Mechanical Ventilator 28 05/25/17 18:00 78 20 105/82 100 Mechanical Ventilator 28 05/25/17 17:41 97.6 05/25/17 17:30 76 20 125/86 100 Mechanical Ventilator 28 05/25/17 17:16 123 18 28 05/25/17 17:00 124 20 106/84 100 Mechanical Ventilator 28 05/25/17 16:30 126 20 145/90 100 Mechanical Ventilator 28 05/25/17 16:00 97.6 123 20 125/92 100 Mechanical Ventilator 28 05/25/17 16:00 28 05/25/17 16:00 131 05/25/17 15:34 114 18 28 05/25/17 15:30 78 19 106/76 99 Mechanical Ventilator 28 05/25/17 15:00 81 18 116/98 98 Mechanical Ventilator 28 05/25/17 14:33 155 113/81 05/25/17 14:30 85 18 129/85 97 Mechanical Ventilator 28 05/25/17 14:00 140 19 113/81 100 Mechanical Ventilator 28 05/25/17 13:30 106 20 111/81 99 Mechanical Ventilator 28 05/25/17 13:30 154 19 28 05/25/17 13:00 141 20 121/91 100 Mechanical Ventilator 28 05/25/17 12:30 88 19 128/111 98 Mechanical Ventilator 28 05/25/17 12:00 97.7 88 18 140/92 100 Mechanical Ventilator 28 05/25/17 12:00 109 05/25/17 12:00 28 05/25/17 11:30 90 20 119/90 100 Mechanical Ventilator 28 05/25/17 11:29 155 18 28 Height (Feet): 5 Height (Inches): 0.00 Weight (Pounds): 205 HEENT: status post trach Respiratory/Chest: lungs clear Cardiovascular: normal rate, regular rhythm, no gallop/murmur Abdomen: soft, non tender, other - GT Extremities: other - + edema, right arm PICC Laboratory Tests Test 05/25/17 16:00 05/26/17 04:50 Body Fluid Source Paracentesis Body Fluid Volume 28 mL Body Fluid Appearance Hazy Body Fluid RBC 350 /CUMM Body Fluid Total Nucleated Cells 170 /CUMM Body Fluid Polynuclear WBCs (%) 68 % Body Fluid Mononuclear WBCs (%) 30 % Body Fluid Mesothelial Cells (%) 2 % White Blood Count 33.3 K/UL (4.8-10.8) *H Red Blood Count 3.60 M/UL (4.20-5.40) L Hemoglobin 10.3 G/DL (12.0-16.0) L Hematocrit 30.6 % (37.0-47.0) L Mean Corpuscular Volume 85 FL (80-99) Mean Corpuscular Hemoglobin 28.6 PG (27.0-31.0) Mean Corpuscular Hemoglobin Concent 33.6 G/DL (32.0-36.0) Red Cell Distribution Width 15.2 % (11.6-14.8) H Platelet Count 823 K/UL (150-450) H Mean Platelet Volume 5.6 FL (6.5-10.1) L Neutrophils (%) (Auto) % (45.0-75.0) Lymphocytes (%) (Auto) % (20.0-45.0) Monocytes (%) (Auto) % (1.0-10.0) Eosinophils (%) (Auto) % (0.0-3.0) Basophils (%) (Auto) % (0.0-2.0) Differential Total Cells Counted 100 Neutrophils % (Manual) 85 % (45-75) H Lymphocytes % (Manual) 8 % (20-45) L Monocytes % (Manual) 7 % (1-10) Eosinophils % (Manual) 0 % (0-3) Basophils % (Manual) 0 % (0-2) Band Neutrophils 0 % (0-8) Nucleated Red Blood Cells 6 /100 WBC Platelet Estimate Adequate Platelet Morphology Normal Polychromasia 2+ Hypochromasia 1+ Anisocytosis 1+ Sodium Level 148 MMOL/L (136-145) H Potassium Level 2.9 MMOL/L (3.5-5.1) L Chloride Level 105 MMOL/L (98-107) Carbon Dioxide Level 30 MMOL/L (21-32) Anion Gap 13 mmol/L (5-15) Blood Urea Nitrogen 38 mg/dL (7-18) H Creatinine 1.4 MG/DL (0.55-1.30) H Estimat Glomerular Filtration Rate 38.1 mL/min (>60) Glucose Level 209 MG/DL (74-106) H Uric Acid 10.3 MG/DL (2.6-7.2) H Calcium Level 8.3 MG/DL (8.5-10.1) L Phosphorus Level 4.1 MG/DL (2.5-4.9) Magnesium Level 1.9 MG/DL (1.8-2.4) Total Bilirubin 0.6 MG/DL (0.2-1.0) Gamma Glutamyl Transpeptidase 472 U/L (5-85) H Aspartate Amino Transf (AST/SGOT) 88 U/L (15-37) H Alanine Aminotransferase (ALT/SGPT) 168 U/L (12-78) H Alkaline Phosphatase 190 U/L (46-116) H C-Reactive Protein, Quantitative 6.9 mg/dL (0.00-0.90) H Pro-B-Type Natriuretic Peptide 8024 pg/mL (0-125) H Total Protein 5.7 G/DL (6.4-8.2) L Albumin 2.4 G/DL (3.4-5.0) L Globulin 3.3 g/dL Albumin/Globulin Ratio 0.7 (1.0-2.7) L ERIKA DICKERSON May 26, 2017 11:28
[2017-05-26] MEDS ORDERED: Amiodarone 900 MG in D5W 500ml 482 ML IV SCH (14:30)
[2017-05-26] MEDS: D5 1/2NS 1,000 ML IV SCH (16:36)
--- NOTE | 2017-05-26 18:45 | Progress Note ---
DATE: 05/26/2017 CARDIOLOGY PROGRESS NOTE SUBJECTIVE: The patient's condition remains critical. She is in the intensive care unit. A 20 minutes time spent discussing with sister at the bedside current state. The patient has recurring atrial fibrillation episodes with rapid ventricular response. She is on IV amiodarone drip. The patient has elevated peak pressures on her ventilator in the range of 40 to 45. At baseline, she is in the 20s according to her sister. The patient also underwent hemodialysis with ultrafiltration yesterday of approximately 860 mL. OBJECTIVE: VITAL SIGNS: Blood pressure 101/70, heart rate 132, respirations 19, and temperature 98.2. Ventilator via tracheostomy. LUNGS: Coarse breath sounds. HEART: Irregularly irregular rhythm. Normal S1, S2. ABDOMEN: Obese. EXTREMITIES: With 2+ dependent edema. LABORATORY DATA: White count 33 and hemoglobin 10. Sodium 148, potassium 3.9, bicarbonate 30, BUN 38, and creatinine 1.4. Albumin 2.4. Pro-natriuretic peptide 8000. IMPRESSION: 1. Sepsis. 2. Shock. 3. Paroxysmal atrial fibrillation with rapid ventricular response likely precipitated by elevated pulmonary artery systolic pressures due to lung disease. 4. Respiratory failure. 5. Extensive pneumonia. 6. Pericardial effusion. 7. Severe protein-calorie malnutrition. 8. Shock liver. 9. Acute on chronic diastolic congestive heart failure. 10. Acute renal failure. 11. Multiple electrolyte abnormalities. PLAN: 1. Antimicrobials. 2. Ventilator support. 3. Hemodialysis with ultrafiltration based on clinical parameters. 4. IV amiodarone. 5. Nutritional support by feeding tube. 6. Sister aware of guarded prognosis. 7. Transfer to higher level of care when bed available. Ramo Toure M.D. DR: SHON JOB#: [id number] CC:
[2017-05-26] MEDS ORDERED: D5 1/2NS 1000ml IV ONE (20:08)
[2017-05-26] MEDS ORDERED: Sterile Water For Irrig 2000ml IRRIG ONE (20:08)
[2017-05-26] MEDS ORDERED: Tubing IV Secondary IV ONE (20:08)
[2017-05-26] MEDS: Dyna-Hex 2% Top Sol 2oz TOPIC SCH (20:11)
--- NOTE | 2017-05-26 20:41 | General Progress Note ---
Assessment/Plan Problem List: (1) Sepsis ICD Codes: A41.9 - Sepsis, unspecified organism SNOMED: 10238323 (2) Pneumonia ICD Codes: J18.9 - Pneumonia, unspecified organism SNOMED: 739543761 (3) Acute renal failure ICD Codes: N17.9 - Acute kidney failure, unspecified SNOMED: 53296009 (4) Pericardial effusion ICD Codes: I31.3 - Pericardial effusion (noninflammatory) SNOMED: 747649524 (5) Tracheostomy malfunction ICD Codes: J95.03 - Malfunction of tracheostomy stoma SNOMED: 74492993 (6) UTI (urinary tract infection) ICD Codes: N39.0 - Urinary tract infection, site not specified SNOMED: 68568656, 327500841 Qualifiers: Qualified Codes: N30.01 - Acute cystitis with hematuria Status: stable, not improved, unchanged Assessment/Plan ivf iv abx follow up cultures vent support resp rx monitor renal fxn HD per renal amio drip/rate control poor prognosis. d/w caregiver. dnr try to transfer to tertiary hospital for pericardial drainage remains critical and guarded prognosis remains poor Subjective Date patient seen: May 26, 2017 Time patient seen: 07:30 ROS Limited/Unobtainable: Yes Constitutional: Reports: malaise, weakness HEENT: Reports: no symptoms Cardiovascular: Reports: no symptoms Respiratory: Reports: cough, shortness of breath Gastrointestinal/Abdominal: Reports: abdomen distended Genitourinary: Reports: no symptoms Neurologic/Psychiatric: Reports: pre-existing deficit Endocrine: Reports: no symptoms Hematologic/Lymphatic: Reports: anemia Allergies: Coded Allergies: OLANZAPINE (Verified Allergy, Severe, RESP FAILURE, 11/25/13) VANCOMYCIN (Verified Allergy, Severe, 11/25/13) PIPERACILLIN (Verified Allergy, Intermediate, HIVES, 11/25/13) TAZOBACTAM (Verified Allergy, Intermediate, HIVES, 11/25/13) All Systems: reviewed and negative except above Subjective no events. doing poorly. intermittent svt. minimal uop. bp stable. tolerated HD yesterday. 2liters UF. Objective Last 24 Hour Vital Signs Date Time Temp Pulse Resp B/P (MAP) Pulse Ox O2 Delivery O2 Flow Rate FiO2 05/26/17 19:08 130 16 28 05/26/17 18:30 127 18 143/92 100 Mechanical Ventilator 28 05/26/17 18:00 67 16 136/87 100 Mechanical Ventilator 28 05/26/17 17:30 72 16 128/65 100 Mechanical Ventilator 28 05/26/17 17:00 72 17 95/62 100 Mechanical Ventilator 28 05/26/17 16:39 81 18 28 05/26/17 16:30 74 16 91/58 99 Mechanical Ventilator 28 05/26/17 16:00 28 05/26/17 16:00 97.6 99 17 92/62 100 Mechanical Ventilator 28 05/26/17 16:00 71 05/26/17 15:30 137 19 110/71 99 Mechanical Ventilator 28 05/26/17 15:30 138 17 28 05/26/17 15:00 135 19 96/78 100 Mechanical Ventilator 28 05/26/17 14:30 135 19 104/81 100 Mechanical Ventilator 28 05/26/17 14:00 136 19 114/76 100 Mechanical Ventilator 28 05/26/17 13:30 134 18 109/76 100 Mechanical Ventilator 28 05/26/17 13:01 132 19 Mechanical Ventilator 15.0 28 05/26/17 13:01 130 19 28 05/26/17 13:00 110 18 127/98 99 Mechanical Ventilator 28 05/26/17 12:30 137 20 96/75 99 Mechanical Ventilator 28 05/26/17 12:00 76 05/26/17 12:00 98.4 76 19 99/74 99 Mechanical Ventilator 28 05/26/17 12:00 28 05/26/17 11:33 97.5 05/26/17 11:30 82 18 90/68 98 Mechanical Ventilator 28 05/26/17 11:01 79 18 28 05/26/17 11:00 79 19 102/72 97 Mechanical Ventilator 28 05/26/17 10:30 92 19 89/71 96 Mechanical Ventilator 28 05/26/17 10:00 131 18 98/74 99 Mechanical Ventilator 28 05/26/17 09:46 144 16 100 Mechanical Ventilator 28 05/26/17 09:35 28 05/26/17 09:35 132 18 99 Mechanical Ventilator 15.0 28 05/26/17 09:30 70 18 103/73 99 Mechanical Ventilator 28 05/26/17 09:30 132 17 28 05/26/17 09:00 72 17 100/77 99 Mechanical Ventilator 28 05/26/17 09:00 28 05/26/17 08:30 131 17 110/76 99 Mechanical Ventilator 28 05/26/17 08:00 97.5 71 12 89/57 98 Mechanical Ventilator 28 05/26/17 08:00 153 05/26/17 07:30 131 15 81/62 99 Mechanical Ventilator 28 05/26/17 07:11 134 18 28 05/26/17 07:00 132 19 101/70 99 Mechanical Ventilator 28 05/26/17 06:30 130 16 93/79 99 Mechanical Ventilator 28 05/26/17 06:00 134 16 123/93 99 Mechanical Ventilator 28 05/26/17 05:30 135 17 108/77 98 Mechanical Ventilator 28 05/26/17 05:30 131 18 105/81 99 Mechanical Ventilator 28 05/26/17 05:20 70 16 28 05/26/17 05:19 Endotracheal Tube 28 05/26/17 05:13 Mechanical Ventilator 28 05/26/17 05:00 69 16 109/77 98 Mechanical Ventilator 28 05/26/17 04:30 68 17 125/91 98 Mechanical Ventilator 28 05/26/17 04:00 68 05/26/17 04:00 28 05/26/17 04:00 98.2 68 17 107/83 99 Mechanical Ventilator 28 05/26/17 03:30 64 19 123/73 100 Mechanical Ventilator 28 05/26/17 03:29 64 16 28 05/26/17 03:00 73 16 89/65 100 Mechanical Ventilator 28 05/26/17 02:30 75 16 79/53 100 Mechanical Ventilator 28 05/26/17 02:00 76 16 75/48 99 Mechanical Ventilator 28 05/26/17 01:30 72 16 78/61 100 Mechanical Ventilator 28 05/26/17 01:17 69 17 28 05/26/17 01:00 76 18 77/43 99 Mechanical Ventilator 28 05/26/17 01:00 73 16 91/61 100 Mechanical Ventilator 28 05/26/17 00:30 80 22 70/53 99 Mechanical Ventilator 28 05/26/17 00:13 97.5 141 05/26/17 00:10 80 05/26/17 00:00 97.7 80 22 74/47 99 Mechanical Ventilator 28 05/26/17 00:00 28 05/25/17 23:30 80 21 68/51 100 Mechanical Ventilator 28 05/25/17 23:00 76 19 102/80 100 Mechanical Ventilator 28 05/25/17 22:53 75 17 28 05/25/17 22:30 121 17 114/94 100 Mechanical Ventilator 28 05/25/17 22:00 69 17 114/72 100 Mechanical Ventilator 28 05/25/17 21:45 97.5 141 20 114/72 100 Mechanical Ventilator 28 05/25/17 21:45 Mechanical Ventilator 05/25/17 21:30 67 18 28 05/25/17 21:30 68 17 105/74 100 Mechanical Ventilator 28 05/25/17 21:30 97.5 141 20 114/72 Mechanical Ventilator 05/25/17 21:00 69 17 121/75 100 Mechanical Ventilator 28 Intake and Output 05/26/17 05/27/17 19:00 07:00 Intake Total 1041.62 ml Output Total 40 ml Balance 1001.62 ml IV Total 471.62 ml Tube Feeding 480 ml Other 90 ml Output Urine Total 40 ml Laboratory Tests 05/26/17 04:50: White Blood Count 33.3*H, Red Blood Count 3.60L, Hemoglobin 10.3L, Hematocrit 30.6L, Mean Corpuscular Volume 85, Mean Corpuscular Hemoglobin 28.6, Mean Corpuscular Hemoglobin Concent 33.6, Red Cell Distribution Width 15.2H, Platelet Count 823H, Mean Platelet Volume 5.6L, Neutrophils (%) (Auto) , Lymphocytes (%) (Auto) , Monocytes (%) (Auto) , Eosinophils (%) (Auto) , Basophils (%) (Auto) , Differential Total Cells Counted 100, Neutrophils % ( Manual) 85H, Lymphocytes % (Manual) 8L, Monocytes % (Manual) 7, Eosinophils % ( Manual) 0, Basophils % (Manual) 0, Band Neutrophils 0, Nucleated Red Blood Cells 6, Platelet Estimate Adequate, Platelet Morphology Normal, Polychromasia 2 +, Hypochromasia 1+, Anisocytosis 1+, Sodium Level 148H, Potassium Level 2.9L, Chloride Level 105, Carbon Dioxide Level 30, Anion Gap 13, Blood Urea Nitrogen 38H, Creatinine 1.4H, Estimat Glomerular Filtration Rate 38.1, Glucose Level 209H, Uric Acid 10.3H, Calcium Level 8.3L, Phosphorus Level 4.1, Magnesium Level 1.9, Total Bilirubin 0.6, Gamma Glutamyl Transpeptidase 472H, Aspartate Amino Transf (AST/SGOT) 88H, Alanine Aminotransferase (ALT/SGPT) 168H, Alkaline Phosphatase 190H, C-Reactive Protein, Quantitative 6.9H, Pro-B-Type Natriuretic Peptide 8024H, Total Protein 5.7L, Albumin 2.4L, Globulin 3.3, Albumin/Globulin Ratio 0.7L Height (Feet): 5 Height (Inches): 0.00 Weight (Pounds): 205 General Appearance: WD/WN, alert Neck: supple Cardiovascular: regular rhythm Respiratory/Chest: lungs clear Abdomen: hypoactive bowel sounds, distended Edema: severe edema Neurologic: unresponsive OCHOA BISWAS May 26, 2017 20:41
--- NOTE | 2017-05-26 20:47 | General Progress Note ---
Assessment/Plan Assessment/Plan Assessment - Encephalopathy - Resp failure - Trach - dysphagia - PEG - edema / anasarca - abd distention due to ascites - no SBP on tap - UTI/PNA - leukocytosis - azotemia - pericardial effusion - marked thrombocytosis - poor Px Recommendations - continue TF - cardiology f/u - hold off on GT change - check C Diff - will need periodic paracentesis - continue abx Subjective Allergies: Coded Allergies: OLANZAPINE (Verified Allergy, Severe, RESP FAILURE, 11/25/13) VANCOMYCIN (Verified Allergy, Severe, 11/25/13) PIPERACILLIN (Verified Allergy, Intermediate, HIVES, 11/25/13) TAZOBACTAM (Verified Allergy, Intermediate, HIVES, 11/25/13) Subjective d/w RN tolerating TF abd slightly less distended Objective Last 24 Hour Vital Signs Date Time Temp Pulse Resp B/P (MAP) Pulse Ox O2 Delivery O2 Flow Rate FiO2 05/26/17 19:08 130 16 28 05/26/17 18:30 127 18 143/92 100 Mechanical Ventilator 28 05/26/17 18:00 67 16 136/87 100 Mechanical Ventilator 28 05/26/17 17:30 72 16 128/65 100 Mechanical Ventilator 28 05/26/17 17:00 72 17 95/62 100 Mechanical Ventilator 28 05/26/17 16:39 81 18 28 05/26/17 16:30 74 16 91/58 99 Mechanical Ventilator 28 05/26/17 16:00 28 05/26/17 16:00 97.6 99 17 92/62 100 Mechanical Ventilator 28 05/26/17 16:00 71 05/26/17 15:30 137 19 110/71 99 Mechanical Ventilator 28 05/26/17 15:30 138 17 28 05/26/17 15:00 135 19 96/78 100 Mechanical Ventilator 05/26/17 14:30 135 19 104/81 100 Mechanical Ventilator 28 05/26/17 14:00 136 19 114/76 100 Mechanical Ventilator 28 05/26/17 13:30 134 18 109/76 100 Mechanical Ventilator 28 05/26/17 13:01 132 19 Mechanical Ventilator 15.0 28 05/26/17 13:01 130 19 28 05/26/17 13:00 110 18 127/98 99 Mechanical Ventilator 28 05/26/17 12:30 137 20 96/75 99 Mechanical Ventilator 28 05/26/17 12:00 76 12/2/17 12:00 98.4 76 19 99/74 99 Mechanical Ventilator 28 05/26/17 12:00 28 05/26/17 11:33 97.5 05/26/17 11:30 82 18 90/68 98 Mechanical Ventilator 28 05/26/17 11:01 79 18 28 05/26/17 11:00 79 19 102/72 97 Mechanical Ventilator 28 05/26/17 10:30 92 19 89/71 96 Mechanical Ventilator 28 05/26/17 10:00 131 18 98/74 99 Mechanical Ventilator 28 05/26/17 09:46 144 16 100 Mechanical Ventilator 28 05/26/17 09:35 28 05/26/17 09:35 132 18 99 Mechanical Ventilator 15.0 28 05/26/17 09:30 70 18 103/73 99 Mechanical Ventilator 28 05/26/17 09:30 132 17 28 05/26/17 09:00 72 17 100/77 99 Mechanical Ventilator 28 05/26/17 09:00 28 05/26/17 08:30 131 17 110/76 99 Mechanical Ventilator 28 05/26/17 08:00 97.5 71 12 89/57 98 Mechanical Ventilator 28 05/26/17 08:00 153 05/26/17 07:30 131 15 81/62 99 Mechanical Ventilator 28 05/26/17 07:11 134 18 28 05/26/17 07:00 132 19 101/70 99 Mechanical Ventilator 28 05/26/17 06:30 130 16 93/79 99 Mechanical Ventilator 28 05/26/17 06:00 134 16 123/93 99 Mechanical Ventilator 28 05/26/17 05:30 135 17 108/77 98 Mechanical Ventilator 28 05/26/17 05:30 131 18 105/81 99 Mechanical Ventilator 28 05/26/17 05:20 70 16 28 05/26/17 05:19 Endotracheal Tube 28 05/26/17 05:13 Mechanical Ventilator 28 05/26/17 05:00 69 16 109/77 98 Mechanical Ventilator 28 05/26/17 04:30 68 17 125/91 98 Mechanical Ventilator 28 05/26/17 04:00 68 05/26/17 04:00 28 05/26/17 04:00 98.2 68 17 107/83 99 Mechanical Ventilator 28 05/26/17 03:30 64 19 123/73 100 Mechanical Ventilator 28 05/26/17 03:29 64 16 28 05/26/17 03:00 73 16 89/65 100 Mechanical Ventilator 28 05/26/17 02:30 75 16 79/53 100 Mechanical Ventilator 28 05/26/17 02:00 76 16 75/48 99 Mechanical Ventilator 28 05/26/17 01:30 72 16 78/61 100 Mechanical Ventilator 28 05/26/17 01:17 69 17 28 05/26/17 01:00 76 18 77/43 99 Mechanical Ventilator 28 05/26/17 01:00 73 16 91/61 100 Mechanical Ventilator 28 05/26/17 00:30 80 22 70/53 99 Mechanical Ventilator 28 05/26/17 00:13 97.5 141 05/26/17 00:10 80 05/26/17 00:00 97.7 80 22 74/47 99 Mechanical Ventilator 28 05/26/17 00:00 28 05/25/17 23:30 80 21 68/51 100 Mechanical Ventilator 28 05/25/17 23:00 76 19 102/80 100 Mechanical Ventilator 28 05/25/17 22:53 75 17 28 05/25/17 22:30 121 17 114/94 100 Mechanical Ventilator 28 05/25/17 22:00 69 17 114/72 100 Mechanical Ventilator 28 05/25/17 21:45 97.5 141 20 114/72 100 Mechanical Ventilator 28 05/25/17 21:45 Mechanical Ventilator 05/25/17 21:30 67 18 28 05/25/17 21:30 68 17 105/74 100 Mechanical Ventilator 28 05/25/17 21:30 97.5 141 20 114/72 Mechanical Ventilator 05/25/17 21:00 69 17 121/75 100 Mechanical Ventilator 28 Intake and Output 05/26/17 05/27/17 19:00 07:00 Intake Total 1041.62 ml Output Total 40 ml Balance 1001.62 ml IV Total 471.62 ml Tube Feeding 480 ml Other 90 ml Output Urine Total 40 ml Laboratory Tests 05/26/17 04:50: White Blood Count 33.3*H, Red Blood Count 3.60L, Hemoglobin 10.3L, Hematocrit 30.6L, Mean Corpuscular Volume 85, Mean Corpuscular Hemoglobin 28.6, Mean Corpuscular Hemoglobin Concent 33.6, Red Cell Distribution Width 15.2H, Platelet Count 823H, Mean Platelet Volume 5.6L, Neutrophils (%) (Auto) , Lymphocytes (%) (Auto) , Monocytes (%) (Auto) , Eosinophils (%) (Auto) , Basophils (%) (Auto) , Differential Total Cells Counted 100, Neutrophils % ( Manual) 85H, Lymphocytes % (Manual) 8L, Monocytes % (Manual) 7, Eosinophils % ( Manual) 0, Basophils % (Manual) 0, Band Neutrophils 0, Nucleated Red Blood Cells 6, Platelet Estimate Adequate, Platelet Morphology Normal, Polychromasia 2 +, Hypochromasia 1+, Anisocytosis 1+, Sodium Level 148H, Potassium Level 2.9L, Chloride Level 105, Carbon Dioxide Level 30, Anion Gap 13, Blood Urea Nitrogen 38H, Creatinine 1.4H, Estimat Glomerular Filtration Rate 38.1, Glucose Level 209H, Uric Acid 10.3H, Calcium Level 8.3L, Phosphorus Level 4.1, Magnesium Level 1.9, Total Bilirubin 0.6, Gamma Glutamyl Transpeptidase 472H, Aspartate Amino Transf (AST/SGOT) 88H, Alanine Aminotransferase (ALT/SGPT) 168H, Alkaline Phosphatase 190H, C-Reactive Protein, Quantitative 6.9H, Pro-B-Type Natriuretic Peptide 8024H, Total Protein 5.7L, Albumin 2.4L, Globulin 3.3, Albumin/Globulin Ratio 0.7L Height (Feet): 5 Height (Inches): 0.00 Weight (Pounds): 205 Objective Obese WW NCAT supple Chest: coarse BS RRR obese, firm and distended abd, (+) GT (++) edema / anasarca OBS JILL WHITNEY May 26, 2017 20:47
[2017-05-27] VITALS (33 sets, daily range): BP systolic 84–162; BP diastolic 50–107
[2017-05-27] MEDS: Aluminum Hydroxide Gel Susp 15ml GT SCH ×3 (00:57→21:31)
[2017-05-27] MEDS: metroNIDAZOLE 500mg tab GT SCH ×3 (04:36→20:16)
[2017-05-27 05:56] LABS: MEAN CORPUSCULAR HEMOGLOBIN 28.8 PG (27.0-31.0); MEAN CORPUSCULAR HGB CONC 33.3 G/DL (32.0-36.0); MEAN CORPUSCULAR VOLUME 86 FL (80-99); MEAN PLATELET VOLUME 5.6 FL (6.5-10.1); PLATELET COUNT 593 K/UL (150-450); RED BLOOD COUNT 3.26 M/UL (4.20-5.40); RED CELL DISTRIBUTION WIDTH 16.1 % (11.6-14.8); WHITE BLOOD COUNT 27.7 K/UL (4.8-10.8)
[2017-05-27] MEDS: NovoLOG Insulin Flexpen SUBQ SCH ×4 (06:18→21:13)
--- NOTE | 2017-05-27 06:26 | Pulmonology Progress Note ---
Assessment/Plan Assessment/Plan IMPRESSION respiratory failure possible UTI sepsis ARF/CRF hyperkalemia pericardial effusion possible renal cyst vs mass hypertension (now with normal BP off meds) chronic encephalopathy hypothyroidism diabetes possible cirrhosis atrial fib, paroxysmal hyperuricemia pain possible ascites pericardial fluid collection PLAN ventilator management- as is monitor acid base MR abdomen and ultrasound when stable monitor ascites sliding scale and monitor sugars- monitor ability to tolerate PO monitor for residuals GT care iv hydration with caution free water GI/renal/ID/cards evaluation monitor clinically antibiotics noted- may need additional coverage WBC improved watch platelets- now better overall HD- concern with low BP sister discussing DNR medications/laboratory data/nursing notes/ICU care reviewed in detail note reviewed and edited care discussed with RN and RT ICU time spent 40 minutes Subjective ROS Limited/Unobtainable: Yes Allergies: Coded Allergies: OLANZAPINE (Verified Allergy, Severe, RESP FAILURE, 11/25/13) VANCOMYCIN (Verified Allergy, Severe, 11/25/13) PIPERACILLIN (Verified Allergy, Intermediate, HIVES, 11/25/13) TAZOBACTAM (Verified Allergy, Intermediate, HIVES, 11/25/13) Subjective overnight events reviewed labs noted rate now controlled d/w cards and renal d/w sister at length x 30 minutes update given for transfer- with [facility] physicians; on list Objective Last 24 Hour Vital Signs Date Time Temp Pulse Resp B/P (MAP) Pulse Ox O2 Delivery O2 Flow Rate FiO2 05/27/17 05:10 98 16 28 05/27/17 05:00 63 16 114/72 100 Mechanical Ventilator 05/27/17 04:30 62 16 122/71 99 Mechanical Ventilator 05/27/17 04:00 05/27/17 04:00 97.5 65 16 88/50 100 Mechanical Ventilator 05/27/17 03:32 70 05/27/17 03:30 65 17 100/58 100 Mechanical Ventilator 05/27/17 03:20 65 16 28 05/27/17 03:00 65 16 116/70 100 Mechanical Ventilator 05/27/17 02:30 65 16 84/51 100 Mechanical Ventilator 05/27/17 02:00 66 16 89/62 100 Mechanical Ventilator 05/27/17 01:30 66 16 99/74 100 Mechanical Ventilator 05/27/17 01:10 64 16 28 05/27/17 01:00 66 16 97/67 100 Mechanical Ventilator 05/27/17 00:30 66 16 108/65 100 Mechanical Ventilator 28 05/27/17 00:09 66 05/27/17 00:00 28 05/27/17 00:00 98.1 67 16 94/65 100 Mechanical Ventilator 28 05/26/17 23:30 69 16 102/74 100 Mechanical Ventilator 28 05/26/17 23:11 70 16 28 05/26/17 23:00 69 16 90/62 100 Mechanical Ventilator 28 05/26/17 22:30 67 16 106/68 100 Mechanical Ventilator 28 05/26/17 22:00 72 16 74/56 100 Mechanical Ventilator 28 05/26/17 21:30 74 16 85/56 100 Mechanical Ventilator 28 05/26/17 21:23 73 16 100 Mechanical Ventilator 28 05/26/17 21:15 28 05/26/17 21:15 69 16 99 Mechanical Ventilator 15.0 28 05/26/17 21:00 69 16 28 05/26/17 21:00 69 16 116/74 100 Mechanical Ventilator 28 05/26/17 20:30 72 16 133/83 99 Mechanical Ventilator 28 05/26/17 20:04 118 05/26/17 20:00 97.8 73 16 145/93 99 Mechanical Ventilator 28 05/26/17 20:00 28 05/26/17 19:30 75 17 151/96 99 Mechanical Ventilator 28 05/26/17 19:08 130 16 28 05/26/17 19:00 130 17 152/112 99 Mechanical Ventilator 28 05/26/17 18:30 127 18 143/92 100 Mechanical Ventilator 28 05/26/17 18:00 67 16 136/87 100 Mechanical Ventilator 28 05/26/17 17:30 72 16 128/65 100 Mechanical Ventilator 28 05/26/17 17:00 72 17 95/62 100 Mechanical Ventilator 28 05/26/17 16:39 81 18 28 05/26/17 16:30 74 16 91/58 99 Mechanical Ventilator 28 05/26/17 16:00 28 05/26/17 16:00 97.6 99 17 92/62 100 Mechanical Ventilator 28 05/26/17 16:00 71 05/26/17 15:30 137 19 110/71 99 Mechanical Ventilator 28 05/26/17 15:30 138 17 28 05/26/17 15:00 135 19 96/78 100 Mechanical Ventilator 28 05/26/17 14:30 135 19 104/81 100 Mechanical Ventilator 28 05/26/17 14:00 136 19 114/76 100 Mechanical Ventilator 28 05/26/17 13:30 134 18 109/76 100 Mechanical Ventilator 28 05/26/17 13:01 132 19 Mechanical Ventilator 15.0 28 05/26/17 13:01 130 19 28 05/26/17 13:00 110 18 127/98 99 Mechanical Ventilator 28 05/26/17 12:30 137 20 96/75 99 Mechanical Ventilator 28 05/26/17 12:00 76 05/26/17 12:00 98.4 76 19 99/74 99 Mechanical Ventilator 28 05/26/17 12:00 28 05/26/17 11:33 97.5 05/26/17 11:30 82 18 90/68 98 Mechanical Ventilator 28 05/26/17 11:01 79 18 28 05/26/17 11:00 79 19 102/72 97 Mechanical Ventilator 28 05/26/17 10:30 92 19 89/71 96 Mechanical Ventilator 28 05/26/17 10:00 131 18 98/74 99 Mechanical Ventilator 28 05/26/17 09:46 144 16 100 Mechanical Ventilator 28 05/26/17 09:35 28 05/26/17 09:35 132 18 99 Mechanical Ventilator 15.0 28 05/26/17 09:30 70 18 103/73 99 Mechanical Ventilator 28 05/26/17 09:30 132 17 28 05/26/17 09:00 72 17 100/77 99 Mechanical Ventilator 28 05/26/17 09:00 28 05/26/17 08:30 131 17 110/76 99 Mechanical Ventilator 28 05/26/17 08:00 97.5 71 12 89/57 98 Mechanical Ventilator 28 05/26/17 08:00 153 05/26/17 07:30 131 15 81/62 99 Mechanical Ventilator 28 05/26/17 07:11 134 18 28 05/26/17 07:00 132 19 101/70 99 Mechanical Ventilator 28 05/26/17 06:30 130 16 93/79 99 Mechanical Ventilator 28 Objective WDWN female chronically ill NAD coarse breath sounds bilaterally without rhonchi or wheeze PIP on vent slightly improved [id number] tachy without MRG NABS nontender no HSM; protuberant; GT- less distended no CC some edema diffusely short neck unresponsive reviewed and edited Laboratory Tests 05/27/17 04:50: White Blood Count 27.7*H, Red Blood Count 3.26L, Hemoglobin 9.4L, Hematocrit 28.1L, Mean Corpuscular Volume 86, Mean Corpuscular Hemoglobin 28.8, Mean Corpuscular Hemoglobin Concent 33.3, Red Cell Distribution Width 16.1H, Platelet Count 593H, Mean Platelet Volume 5.6L, Neutrophils (%) (Auto) , Lymphocytes (%) (Auto) , Monocytes (%) (Auto) , Eosinophils (%) (Auto) , Basophils (%) (Auto) , Neutrophils % (Manual) [Pending], Lymphocytes % (Manual) [Pending], Platelet Estimate [Pending], Platelet Morphology [Pending], Sodium Level [Pending], Potassium Level [Pending], Chloride Level [Pending], Carbon Dioxide Level [Pending], Blood Urea Nitrogen [Pending], Creatinine [Pending], Estimat Glomerular Filtration Rate [Pending], Glucose Level [Pending], Uric Acid [Pending], Calcium Level [Pending], Phosphorus Level [Pending], Magnesium Level [Pending], Total Bilirubin [Pending], Aspartate Amino Transf (AST/SGOT) [ Pending], Alanine Aminotransferase (ALT/SGPT) [Pending], Alkaline Phosphatase [ Pending], C-Reactive Protein, Quantitative [Pending], Pro-B-Type Natriuretic Peptide [Pending], Total Protein [Pending], Albumin [Pending], Globulin [Pending ] Current Medications Medications (Trade) Dose Ordered Sig/Alex Route PRN Reason Start Time Stop Time Status Last Admin Dose Admin Acetaminophen (Tylenol) 650 mg Q6H PRN GT Mild Pain/Temp > 100.5 05/23/17 19:15 06/22/17 19:14 Acetaminophen/ Hydrocodone Bitart ([place] 5/325) 1 tab Q4H PRN GT Moderate Pain (Pain Scale 4-6) 05/23/17 19:15 05/30/17 19:14 05/26/17 10:34 Allopurinol (Allopurinol) 300 mg DAILY GT 05/27/17 09:00 06/24/17 08:59 Aluminum Hydroxide (Amphojel) 1,920 mg Q4HR GT 05/24/17 13:00 06/23/17 00:00 05/27/17 04:39 Amiodarone HCl 900 mg/Dextrose 500 ml @ 16.66 mls/ hr Q24H IV 05/26/17 14:30 05/27/17 14:29 05/26/17 16:43 Atenolol (Tenormin) 12.5 mg DAILY GT 05/27/17 09:00 06/24/17 10:59 Bisacodyl (Dulcolax) 5 mg DAILYPRN PRN RECTAL Constipation 05/23/17 20:30 06/22/17 20:29 Chlorhexidine Gluconate (Rubina-Hex 2%) 1 applic DAILY@2000 TOPIC 05/25/17 20:00 06/24/17 19:59 05/26/17 20:11 Dextrose (Dextrose 50%) STAT PRN IV Hypoglycemia 05/24/17 08:30 06/23/17 08:29 Dextrose/Sodium Chloride 1,000 ml @ 30 mls/hr Q24H IV 05/25/17 16:30 06/24/17 16:29 05/26/17 16:36 Epoetin Amadou (Procrit (for non ESRD use)) 10,000 units MON-WED-FRI SUBQ 05/25/17 21:00 06/24/17 20:59 05/25/17 21:00 Heparin Sodium (Porcine) (Heparin 5000 units/ml) 5,000 units EVERY 12 HOURS SUBQ 05/23/17 21:00 06/22/17 08:59 05/26/17 21:05 Insulin Aspart (NovoLOG) BEFORE MEALS AND HS SUBQ 05/24/17 11:30 06/23/17 11:29 05/27/17 06:18 Ipratropium [place] (Atrovent) 500 mcg BID HHN 05/24/17 09:00 05/27/17 08:59 05/26/17 21:19 Lactobacillus Acidophilus (Culturelle) 1 tab DAILY GT 05/24/17 09:00 06/21/17 08:59 05/26/17 08:54 Levothyroxine Sodium (Synthroid) 75 mcg ACBREAKFAST GT 05/24/17 06:30 06/21/17 06:29 05/27/17 06:17 Levothyroxine Sodium (Synthroid) 100 mcg ACBREAKFAST GT 05/24/17 06:30 06/21/17 06:29 05/27/17 06:17 Meropenem 1 gm/ Sodium Chloride 55 ml @ 110 mls/hr Q24H IVPB 05/26/17 16:00 05/31/17 15:59 05/26/17 16:39 Metronidazole (Flagyl) 500 mg Q8H GT 05/26/17 04:00 05/30/17 03:59 05/27/17 04:36 Pantoprazole (Protonix) 40 mg EVERY 12 HOURS IVP 05/23/17 21:00 06/21/17 20:59 05/26/17 21:03 Patient Own Medication (Patient's Own Med) 1 ea QID BOTH EYES 05/23/17 21:00 06/22/17 20:59 05/26/17 12:44 Patient Own Medication (Patient's Own Med) 1 ea QID BOTH EYES 05/23/17 21:00 06/22/17 20:59 05/26/17 21:03 ANTIONETTE RODRIGUEZ May 27, 2017 06:26
[2017-05-27 06:37] LABS: ALANINE AMINOTRANSFERASE 132 U/L (12-78); ALBUMIN/GLOBULIN RATIO 0.7 (1.0-2.7); ANION GAP 8 mmol/L (5-15); ASPARTATE AMINO TRANSFERASE 52 U/L (15-37); CALCIUM 8.3 MG/DL (8.5-10.1); CARBON DIOXIDE 32 MMOL/L (21-32); CHLORIDE 105 MMOL/L (98-107); CREATININE 1.5 MG/DL (0.55-1.30); CRP QUANT 4.8 mg/dL (0.00-0.90); GLOMERULAR FILTRATION RATE 35.2 mL/min (>60); MAGNESIUM 1.8 MG/DL (1.8-2.4); PHOSPHORUS 3.1 MG/DL (2.5-4.9); POTASSIUM 3.4 MMOL/L (3.5-5.1); SODIUM 145 MMOL/L (136-145); TOTAL PROTEIN 5.3 G/DL (6.4-8.2); URIC ACID 10.9 MG/DL (2.6-7.2)
[2017-05-27 07:51] LABS: LYMPHOCYTES % (MANUAL) 7 % (20-45); NEUTROPHILS % (MANUAL) 88 % (45-75); NUCLEATED RED BLOOD CELLS 1 /100 WBC; TOTAL CELLS COUNTED 100
[2017-05-27 07:52] LABS: ANISOCYTOSIS 1+; BAND NEUTROPHILS % (MANUAL) 0 % (0-8); BASOPHILS % (MANUAL) 0 % (0-2); EOSINOPHILS % (MANUAL) 0 % (0-3); HYPOCHROMASIA 1+; PLATELET ESTIMATE INCREASED; PLATELET MORPHOLOGY NORMAL; POLYCHROMASIA 2+
--- NOTE | 2017-05-27 08:08 | Infectious Diseases Prog Note ---
Assessment/Plan Assessment/Plan A 1. klebsiella UTI 2. leucocytosis 3. respiratory failure 4. DM 5. HPN 6. anoxic brain injury 7. Anasarca 8. Pericardial effusion 9. ascites P 1. Change Meropenem to Cefepime,Continue Flagyl 2. will f/u cultures Subjective ROS Limited/Unobtainable: Yes Allergies: Coded Allergies: OLANZAPINE (Verified Allergy, Severe, RESP FAILURE, 11/25/13) VANCOMYCIN (Verified Allergy, Severe, 11/25/13) PIPERACILLIN (Verified Allergy, Intermediate, HIVES, 11/25/13) TAZOBACTAM (Verified Allergy, Intermediate, HIVES, 11/25/13) Objective Vital Signs Last 24 Hour Vital Signs Date Time Temp Pulse Resp B/P (MAP) Pulse Ox O2 Delivery O2 Flow Rate FiO2 05/27/17 07:00 60 16 113/67 100 Mechanical Ventilator 05/27/17 06:46 63 16 28 05/27/17 06:30 62 16 127/68 100 Mechanical Ventilator 05/27/17 06:00 64 16 94/55 100 Mechanical Ventilator 05/27/17 05:30 64 16 101/70 100 Mechanical Ventilator 05/27/17 05:10 98 16 28 05/27/17 05:00 63 16 114/72 100 Mechanical Ventilator 05/27/17 04:30 62 16 122/71 99 Mechanical Ventilator 05/27/17 04:00 28 05/27/17 04:00 97.5 65 16 88/50 100 Mechanical Ventilator 05/27/17 03:32 70 05/27/17 03:30 65 17 100/58 100 Mechanical Ventilator 05/27/17 03:20 65 16 28 05/27/17 03:00 65 16 116/70 100 Mechanical Ventilator 05/27/17 02:30 65 16 84/51 100 Mechanical Ventilator 05/27/17 02:00 66 16 89/62 100 Mechanical Ventilator 05/27/17 01:30 66 16 99/74 100 Mechanical Ventilator 05/27/17 01:10 64 16 28 05/27/17 01:00 66 16 97/67 100 Mechanical Ventilator 05/27/17 00:30 66 16 108/65 100 Mechanical Ventilator 05/27/17 00:09 66 05/27/17 00:00 28 05/27/17 00:00 98.1 67 16 94/65 100 Mechanical Ventilator 28 05/26/17 23:30 69 16 102/74 100 Mechanical Ventilator 28 05/26/17 23:11 70 16 28 05/26/17 23:00 69 16 90/62 100 Mechanical Ventilator 28 05/26/17 22:30 67 16 106/68 100 Mechanical Ventilator 28 05/26/17 22:00 72 16 74/56 100 Mechanical Ventilator 28 05/26/17 21:30 74 16 85/56 100 Mechanical Ventilator 28 05/26/17 21:23 73 16 100 Mechanical Ventilator 28 05/26/17 21:15 28 05/26/17 21:15 69 16 99 Mechanical Ventilator 15.0 28 05/26/17 21:00 69 16 28 05/26/17 21:00 69 16 116/74 100 Mechanical Ventilator 28 05/26/17 20:30 72 16 133/83 99 Mechanical Ventilator 28 05/26/17 20:04 118 05/26/17 20:00 97.8 73 16 145/93 99 Mechanical Ventilator 28 05/26/17 20:00 28 05/26/17 19:30 75 17 151/96 99 Mechanical Ventilator 28 05/26/17 19:08 130 16 28 05/26/17 19:00 130 17 152/112 99 Mechanical Ventilator 28 05/26/17 18:30 127 18 143/92 100 Mechanical Ventilator 28 05/26/17 18:00 67 16 136/87 100 Mechanical Ventilator 28 05/26/17 17:30 72 16 128/65 100 Mechanical Ventilator 28 05/26/17 17:00 72 17 95/62 100 Mechanical Ventilator 28 05/26/17 16:39 81 18 28 05/26/17 16:30 74 16 91/58 99 Mechanical Ventilator 28 05/26/17 16:00 28 05/26/17 16:00 97.6 99 17 92/62 100 Mechanical Ventilator 28 05/26/17 16:00 71 05/26/17 15:30 137 19 110/71 99 Mechanical Ventilator 28 05/26/17 15:30 138 17 28 05/26/17 15:00 135 19 96/78 100 Mechanical Ventilator 28 05/26/17 14:30 135 19 104/81 100 Mechanical Ventilator 28 05/26/17 14:00 136 19 114/76 100 Mechanical Ventilator 28 05/26/17 13:30 134 18 109/76 100 Mechanical Ventilator 28 05/26/17 13:01 132 19 Mechanical Ventilator 15.0 28 05/26/17 13:01 130 19 28 05/26/17 13:00 110 18 127/98 99 Mechanical Ventilator 28 05/26/17 12:30 137 20 96/75 99 Mechanical Ventilator 28 05/26/17 12:00 76 05/26/17 12:00 98.4 76 19 99/74 99 Mechanical Ventilator 28 05/26/17 12:00 28 05/26/17 11:33 97.5 05/26/17 11:30 82 18 90/68 98 Mechanical Ventilator 28 05/26/17 11:01 79 18 28 05/26/17 11:00 79 19 102/72 97 Mechanical Ventilator 28 05/26/17 10:30 92 19 89/71 96 Mechanical Ventilator 28 05/26/17 10:00 131 18 98/74 99 Mechanical Ventilator 28 05/26/17 09:46 144 16 100 Mechanical Ventilator 28 05/26/17 09:35 28 05/26/17 09:35 132 18 99 Mechanical Ventilator 15.0 28 05/26/17 09:30 70 18 103/73 99 Mechanical Ventilator 28 05/26/17 09:30 132 17 28 05/26/17 09:00 72 17 100/77 99 Mechanical Ventilator 28 05/26/17 09:00 28 05/26/17 08:30 131 17 110/76 99 Mechanical Ventilator 28 Height (Feet): 5 Height (Inches): 0.00 Weight (Pounds): 209 HEENT: status post trach Respiratory/Chest: decreased breath sounds, other - on ventilator Cardiovascular: normal rate, other - RIJ HD line Abdomen: soft, non tender, other - GT feeding Extremities: other - generalized edema, right arm PICC line Neurologic/Psychiatric: unresponsiveness Laboratory Tests Test 05/27/17 04:50 White Blood Count 27.7 K/UL (4.8-10.8) *H Red Blood Count 3.26 M/UL (4.20-5.40) L Hemoglobin 9.4 G/DL (12.0-16.0) L Hematocrit 28.1 % (37.0-47.0) L Mean Corpuscular Volume 86 FL (80-99) Mean Corpuscular Hemoglobin 28.8 PG (27.0-31.0) Mean Corpuscular Hemoglobin Concent 33.3 G/DL (32.0-36.0) Red Cell Distribution Width 16.1 % (11.6-14.8) H Platelet Count 593 K/UL (150-450) H Mean Platelet Volume 5.6 FL (6.5-10.1) L Neutrophils (%) (Auto) % (45.0-75.0) Lymphocytes (%) (Auto) % (20.0-45.0) Monocytes (%) (Auto) % (1.0-10.0) Eosinophils (%) (Auto) % (0.0-3.0) Basophils (%) (Auto) % (0.0-2.0) Differential Total Cells Counted 100 Neutrophils % (Manual) 88 % (45-75) H Lymphocytes % (Manual) 7 % (20-45) L Monocytes % (Manual) 5 % (1-10) Eosinophils % (Manual) 0 % (0-3) Basophils % (Manual) 0 % (0-2) Band Neutrophils 0 % (0-8) Nucleated Red Blood Cells 1 /100 WBC Platelet Estimate Increased H Platelet Morphology Normal Polychromasia 2+ Hypochromasia 1+ Anisocytosis 1+ Sodium Level 145 MMOL/L (136-145) Potassium Level 3.4 MMOL/L (3.5-5.1) L Chloride Level 105 MMOL/L (98-107) Carbon Dioxide Level 32 MMOL/L (21-32) Anion Gap 8 mmol/L (5-15) Blood Urea Nitrogen 46 mg/dL (7-18) H Creatinine 1.5 MG/DL (0.55-1.30) H Estimat Glomerular Filtration Rate 35.2 mL/min (>60) Glucose Level 201 MG/DL (74-106) H Uric Acid 10.9 MG/DL (2.6-7.2) H Calcium Level 8.3 MG/DL (8.5-10.1) L Phosphorus Level 3.1 MG/DL (2.5-4.9) Magnesium Level 1.8 MG/DL (1.8-2.4) Total Bilirubin 0.6 MG/DL (0.2-1.0) Aspartate Amino Transf (AST/SGOT) 52 U/L (15-37) H Alanine Aminotransferase (ALT/SGPT) 132 U/L (12-78) H Alkaline Phosphatase 211 U/L (46-116) H C-Reactive Protein, Quantitative 4.8 mg/dL (0.00-0.90) H Pro-B-Type Natriuretic Peptide 6034 pg/mL (0-125) H Total Protein 5.3 G/DL (6.4-8.2) L Albumin 2.2 G/DL (3.4-5.0) L Globulin 3.1 g/dL Albumin/Globulin Ratio 0.7 (1.0-2.7) L Current Medications Medications (Trade) Dose Ordered Sig/Alex Route PRN Reason Start Time Stop Time Status Last Admin Dose Admin Acetaminophen (Tylenol) 650 mg Q6H PRN GT Mild Pain/Temp > 100.5 05/23/17 19:15 06/22/17 19:14 Acetaminophen/ Hydrocodone Bitart (Lavinia 5/325) 1 tab Q4H PRN GT Moderate Pain (Pain Scale 4-6) 05/23/17 19:15 05/30/17 19:14 05/26/17 10:34 Allopurinol (Allopurinol) 300 mg DAILY GT 05/27/17 09:00 06/24/17 08:59 Aluminum Hydroxide (Amphojel) 1,920 mg Q4HR GT 05/24/17 13:00 06/23/17 00:00 05/27/17 04:39 Amiodarone HCl 900 mg/Dextrose 500 ml @ 16.66 mls/ hr Q24H IV 05/26/17 14:30 05/27/17 14:29 05/26/17 16:43 Atenolol (Tenormin) 12.5 mg DAILY GT 05/27/17 09:00 06/24/17 10:59 Bisacodyl (Dulcolax) 5 mg DAILYPRN PRN RECTAL Constipation 05/23/17 20:30 06/22/17 20:29 Chlorhexidine Gluconate (Rubina-Hex 2%) 1 applic DAILY@2000 TOPIC 05/25/17 20:00 06/24/17 19:59 05/26/17 20:11 Dextrose (Dextrose 50%) STAT PRN IV Hypoglycemia 05/24/17 08:30 06/23/17 08:29 Dextrose/Sodium Chloride 1,000 ml @ 30 mls/hr Q24H IV 05/25/17 16:30 06/24/17 16:29 05/26/17 16:36 Epoetin Amadou (Procrit (for non ESRD use)) 10,000 units SUN-WED-SUN SUBQ 05/25/17 21:00 06/24/17 20:59 05/25/17 21:00 Heparin Sodium (Porcine) (Heparin 5000 units/ml) 5,000 units EVERY 12 HOURS SUBQ 05/23/17 21:00 06/22/17 08:59 05/26/17 21:05 Insulin Aspart (NovoLOG) BEFORE MEALS AND HS SUBQ 05/24/17 11:30 06/23/17 11:29 05/27/17 06:18 Ipratropium [place] (Atrovent) 500 mcg BID HHN 05/24/17 09:00 05/27/17 08:59 05/26/17 21:19 Lactobacillus Acidophilus (Culturelle) 1 tab DAILY GT 05/24/17 09:00 06/21/17 08:59 05/26/17 08:54 Levothyroxine Sodium (Synthroid) 75 mcg ACBREAKFAST GT 05/24/17 06:30 06/21/17 06:29 05/27/17 06:17 Levothyroxine Sodium (Synthroid) 100 mcg ACBREAKFAST GT 05/24/17 06:30 06/21/17 06:29 05/27/17 06:17 Meropenem 1 gm/ Sodium Chloride 55 ml @ 110 mls/hr Q24H IVPB 05/26/17 16:00 05/31/17 15:59 05/26/17 16:39 Metronidazole (Flagyl) 500 mg Q8H GT 05/26/17 04:00 05/30/17 03:59 05/27/17 04:36 Pantoprazole (Protonix) 40 mg EVERY 12 HOURS IVP 05/23/17 21:00 06/21/17 20:59 05/26/17 21:03 Patient Own Medication (Patient's Own Med) 1 ea QID BOTH EYES 05/23/17 21:00 06/22/17 20:59 05/26/17 12:44 Patient Own Medication (Patient's Own Med) 1 ea QID BOTH EYES 05/23/17 21:00 06/22/17 20:59 05/26/17 21:03 EPIFANIO NGUYEN May 27, 2017 08:08
--- NOTE | 2017-05-27 08:33 | General Progress Note ---
Assessment/Plan Problem List: (1) Sepsis ICD Codes: A41.9 - Sepsis, unspecified organism SNOMED: 31106964 (2) Pneumonia ICD Codes: J18.9 - Pneumonia, unspecified organism SNOMED: 709064177 (3) Acute renal failure ICD Codes: N17.9 - Acute kidney failure, unspecified SNOMED: 13198677 (4) Pericardial effusion ICD Codes: I31.3 - Pericardial effusion (noninflammatory) SNOMED: 561707172 (5) Tracheostomy malfunction ICD Codes: J95.03 - Malfunction of tracheostomy stoma SNOMED: 81317192 (6) UTI (urinary tract infection) ICD Codes: N39.0 - Urinary tract infection, site not specified SNOMED: 90249671, 471137896 Qualifiers: Qualified Codes: N30.01 - Acute cystitis with hematuria Status: stable, not improved Assessment/Plan ivf iv abx follow up cultures monitor wbc- trending down vent support resp rx monitor renal fxn HD per renal amio drip/rate control poor prognosis. d/w caregiver. dnr try to transfer to tertiary hospital for pericardial drainage remains critical and guarded prognosis remains poor Subjective ROS Limited/Unobtainable: Yes Constitutional: Reports: malaise, weakness HEENT: Reports: no symptoms Cardiovascular: Reports: edema Respiratory: Reports: shortness of breath Gastrointestinal/Abdominal: Reports: abdomen distended, difficulty swallowing Genitourinary: Reports: no symptoms Neurologic/Psychiatric: Reports: pre-existing deficit Endocrine: Reports: no symptoms Hematologic/Lymphatic: Reports: no symptoms Allergies: Coded Allergies: OLANZAPINE (Verified Allergy, Severe, RESP FAILURE, 11/25/13) VANCOMYCIN (Verified Allergy, Severe, 11/25/13) PIPERACILLIN (Verified Allergy, Intermediate, HIVES, 11/25/13) TAZOBACTAM (Verified Allergy, Intermediate, HIVES, 11/25/13) All Systems: reviewed and negative except above Subjective no events. last night. hr better controlled. abd less distended- s/p paracentesis. caregiver at the bedside. no new concerns Objective Last 24 Hour Vital Signs Date Time Temp Pulse Resp B/P (MAP) Pulse Ox O2 Delivery O2 Flow Rate FiO2 05/27/17 07:00 60 16 113/67 100 Mechanical Ventilator 28 05/27/17 06:46 63 16 28 05/27/17 06:30 62 16 127/68 100 Mechanical Ventilator 28 05/27/17 06:00 64 16 94/55 100 Mechanical Ventilator 28 05/27/17 05:30 64 16 101/70 100 Mechanical Ventilator 28 05/27/17 05:10 98 16 28 05/27/17 05:00 63 16 114/72 100 Mechanical Ventilator 28 05/27/17 04:30 62 16 122/71 99 Mechanical Ventilator 28 05/27/17 04:00 28 05/27/17 04:00 97.5 65 16 88/50 100 Mechanical Ventilator 28 05/27/17 03:32 70 05/27/17 03:30 65 17 100/58 100 Mechanical Ventilator 28 05/27/17 03:20 65 16 28 05/27/17 03:00 65 16 116/70 100 Mechanical Ventilator 28 05/27/17 02:30 65 16 84/51 100 Mechanical Ventilator 28 05/27/17 02:00 66 16 89/62 100 Mechanical Ventilator 28 05/27/17 01:30 66 16 99/74 100 Mechanical Ventilator 28 05/27/17 01:10 64 16 28 05/27/17 01:00 66 16 97/67 100 Mechanical Ventilator 28 05/27/17 00:30 66 16 108/65 100 Mechanical Ventilator 28 05/27/17 00:09 66 05/27/17 00:00 28 05/27/17 00:00 98.1 67 16 94/65 100 Mechanical Ventilator 28 05/26/17 23:30 69 16 102/74 100 Mechanical Ventilator 28 05/26/17 23:11 70 16 28 05/26/17 23:00 69 16 90/62 100 Mechanical Ventilator 28 05/26/17 22:30 67 16 106/68 100 Mechanical Ventilator 28 05/26/17 22:00 72 16 74/56 100 Mechanical Ventilator 28 05/26/17 21:30 74 16 85/56 100 Mechanical Ventilator 28 05/26/17 21:23 73 16 100 Mechanical Ventilator 28 05/26/17 21:15 28 05/26/17 21:15 69 16 99 Mechanical Ventilator 15.0 28 05/26/17 21:00 69 16 28 05/26/17 21:00 69 16 116/74 100 Mechanical Ventilator 28 05/26/17 20:30 72 16 133/83 99 Mechanical Ventilator 28 05/26/17 20:04 118 05/26/17 20:00 97.8 73 16 145/93 99 Mechanical Ventilator 28 05/26/17 20:00 28 05/26/17 19:30 75 17 151/96 99 Mechanical Ventilator 28 05/26/17 19:08 130 16 28 05/26/17 19:00 130 17 152/112 99 Mechanical Ventilator 28 05/26/17 18:30 127 18 143/92 100 Mechanical Ventilator 28 05/26/17 18:00 67 16 136/87 100 Mechanical Ventilator 28 05/26/17 17:30 72 16 128/65 100 Mechanical Ventilator 28 05/26/17 17:00 72 17 95/62 100 Mechanical Ventilator 28 05/26/17 16:39 81 18 28 05/26/17 16:30 74 16 91/58 99 Mechanical Ventilator 28 05/26/17 16:00 28 05/26/17 16:00 97.6 99 17 92/62 100 Mechanical Ventilator 28 05/26/17 16:00 71 05/26/17 15:30 137 19 110/71 99 Mechanical Ventilator 28 05/26/17 15:30 138 17 28 05/26/17 15:00 135 19 96/78 100 Mechanical Ventilator 28 05/26/17 14:30 135 19 104/81 100 Mechanical Ventilator 28 05/26/17 14:00 136 19 114/76 100 Mechanical Ventilator 28 05/26/17 13:30 134 18 109/76 100 Mechanical Ventilator 28 05/26/17 13:01 132 19 Mechanical Ventilator 15.0 28 05/26/17 13:01 130 19 28 05/26/17 13:00 110 18 127/98 99 Mechanical Ventilator 28 05/26/17 12:30 137 20 96/75 99 Mechanical Ventilator 28 05/26/17 12:00 76 05/26/17 12:00 98.4 76 19 99/74 99 Mechanical Ventilator 28 05/26/17 12:00 28 05/26/17 11:33 97.5 05/26/17 11:30 82 18 90/68 98 Mechanical Ventilator 28 05/26/17 11:01 79 18 28 05/26/17 11:00 79 19 102/72 97 Mechanical Ventilator 28 05/26/17 10:30 92 19 89/71 96 Mechanical Ventilator 28 05/26/17 10:00 131 18 98/74 99 Mechanical Ventilator 28 12/2/17 09:46 144 16 100 Mechanical Ventilator 28 05/26/17 09:35 28 05/26/17 09:35 132 18 99 Mechanical Ventilator 15.0 28 05/26/17 09:30 70 18 103/73 99 Mechanical Ventilator 05/26/17 09:30 132 17 28 05/26/17 09:00 72 17 100/77 99 Mechanical Ventilator 05/26/17 09:00 28 Laboratory Tests 05/27/17 04:50: White Blood Count 27.7*H, Red Blood Count 3.26L, Hemoglobin 9.4L, Hematocrit 28.1L, Mean Corpuscular Volume 86, Mean Corpuscular Hemoglobin 28.8, Mean Corpuscular Hemoglobin Concent 33.3, Red Cell Distribution Width 16.1H, Platelet Count 593H, Mean Platelet Volume 5.6L, Neutrophils (%) (Auto) , Lymphocytes (%) (Auto) , Monocytes (%) (Auto) , Eosinophils (%) (Auto) , Basophils (%) (Auto) , Differential Total Cells Counted 100, Neutrophils % ( Manual) 88H, Lymphocytes % (Manual) 7L, Monocytes % (Manual) 5, Eosinophils % ( Manual) 0, Basophils % (Manual) 0, Band Neutrophils 0, Nucleated Red Blood Cells 1, Platelet Estimate IncreasedH, Platelet Morphology Normal, Polychromasia 2+, Hypochromasia 1+, Anisocytosis 1+, Sodium Level 145, Potassium Level 3.4L, Chloride Level 105, Carbon Dioxide Level 32, Anion Gap 8, Blood Urea Nitrogen 46H, Creatinine 1.5H, Estimat Glomerular Filtration Rate 35.2, Glucose Level 201H, Uric Acid 10.9H, Calcium Level 8.3L, Phosphorus Level 3.1, Magnesium Level 1.8, Total Bilirubin 0.6, Aspartate Amino Transf (AST/SGOT ) 52H, Alanine Aminotransferase (ALT/SGPT) 132H, Alkaline Phosphatase 211H, C- Reactive Protein, Quantitative 4.8H, Pro-B-Type Natriuretic Peptide 6034H, Total Protein 5.3L, Albumin 2.2L, Globulin 3.1, Albumin/Globulin Ratio 0.7L Height (Feet): 5 Height (Inches): 0.00 Weight (Pounds): 209 Objective General Appearance: WD/WN, alert Neck: supple Cardiovascular: regular rhythm Respiratory/Chest: lungs clear Abdomen: hypoactive bowel sounds, distended Edema: severe edema Neurologic: unresponsive OCHOA BISWAS May 27, 2017 08:33
[2017-05-27] MEDS: [UNRECOGNIZED DRUG - OTHER] BOTH EYES SCH ×4 (09:00→21:10)
[2017-05-27] MEDS: Atenolol 12.5mg GT SCH (09:00)
[2017-05-27] MEDS: SYSTANE BOTH EYES SCH ×4 (09:00→21:16)
[2017-05-27] MEDS: Lactobacillus-GG tablet GT SCH (09:00)
[2017-05-27] MEDS ORDERED: Cefepime HCl 1 GM in D5W 55 ML IVPB SCH (10:00)
--- NOTE | 2017-05-27 10:14 | Nephrology Progress Note ---
Assessment/Plan Problem List: (1) Acute renal failure (2) Sepsis (3) UTI (urinary tract infection) (4) Tracheostomy dependence (5) Hypotension Assessment dialysed 05/26 and 850 cc removed- re do 05/28 Ascitic tap 2 liter removed 05/25 Urine out put remains low persistantly -. Acute renal failure due to ? sepsis , intravascular volume depletion, low BP... Cr rising- Urine out put down- -. Hypoalbuminemia: - Increase loss: NS - Decrease production: Nutritional -. Shock, sepsis, pneumonia, pericardial effusion. -. History of hypertension, now with low blood pressure. -. Hyperkalemia. improved -. Hyponatremia. improved -. Prerenal azotemia. -. Respiratory failure with tracheostomy. -. Anasarca with ascites. due to low Albumin -. HypoThyroidism . Plan K supplement midodrine dialysis and UF trial as BP remains stable STOP ALL NON FORMULARY SUPPLEMENTS- Diet to Nepro- Amphojel as Phos binder- down on dose Antibiotics- DC Bicitra IV protonix Pulmonary support- Keep BP in check Monitor renal parameters- Avoid nephrotoxics 24 H urine for proteins pending per orders talked to SOREN connors primary care md and Dr De León 05/23 Long phone conversation with sister who requests transfer to [facility] 05/23 down on IV fluid discussed with PHIL Fernandez Subjective ROS Limited/Unobtainable: Yes Objective Objective Last 24 Hour Vital Signs Date Time Temp Pulse Resp B/P (MAP) Pulse Ox O2 Delivery O2 Flow Rate FiO2 05/27/17 09:08 61 16 28 05/27/17 09:00 60 16 113/65 100 Mechanical Ventilator 05/27/17 08:00 98.0 60 16 114/71 100 Mechanical Ventilator 05/27/17 07:00 60 16 113/67 100 Mechanical Ventilator 05/27/17 06:46 63 16 28 05/27/17 06:30 62 16 127/68 100 Mechanical Ventilator 05/27/17 06:00 64 16 94/55 100 Mechanical Ventilator 05/27/17 05:30 64 16 101/70 100 Mechanical Ventilator 05/27/17 05:10 98 16 28 05/27/17 05:00 63 16 114/72 100 Mechanical Ventilator 05/27/17 04:30 62 16 122/71 99 Mechanical Ventilator 28 05/27/17 04:00 28 05/27/17 04:00 97.5 65 16 88/50 100 Mechanical Ventilator 28 05/27/17 03:32 70 05/27/17 03:30 65 17 100/58 100 Mechanical Ventilator 28 05/27/17 03:20 65 16 28 05/27/17 03:00 65 16 116/70 100 Mechanical Ventilator 28 05/27/17 02:30 65 16 84/51 100 Mechanical Ventilator 28 05/27/17 02:00 66 16 89/62 100 Mechanical Ventilator 28 05/27/17 01:30 66 16 99/74 100 Mechanical Ventilator 28 05/27/17 01:10 64 16 28 05/27/17 01:00 66 16 97/67 100 Mechanical Ventilator 28 05/27/17 00:30 66 16 108/65 100 Mechanical Ventilator 28 05/27/17 00:09 66 05/27/17 00:00 28 05/27/17 00:00 98.1 67 16 94/65 100 Mechanical Ventilator 28 05/26/17 23:30 69 16 102/74 100 Mechanical Ventilator 28 05/26/17 23:11 70 16 28 05/26/17 23:00 69 16 90/62 100 Mechanical Ventilator 28 05/26/17 22:30 67 16 106/68 100 Mechanical Ventilator 28 05/26/17 22:00 72 16 74/56 100 Mechanical Ventilator 28 05/26/17 21:30 74 16 85/56 100 Mechanical Ventilator 28 05/26/17 21:23 73 16 100 Mechanical Ventilator 28 05/26/17 21:15 28 05/26/17 21:15 69 16 99 Mechanical Ventilator 15.0 28 05/26/17 21:00 69 16 28 05/26/17 21:00 69 16 116/74 100 Mechanical Ventilator 28 05/26/17 20:30 72 16 133/83 99 Mechanical Ventilator 28 05/26/17 20:04 118 05/26/17 20:00 97.8 73 16 145/93 99 Mechanical Ventilator 28 05/26/17 20:00 28 05/26/17 19:30 75 17 151/96 99 Mechanical Ventilator 28 05/26/17 19:08 130 16 28 05/26/17 19:00 130 17 152/112 99 Mechanical Ventilator 28 05/26/17 18:30 127 18 143/92 100 Mechanical Ventilator 28 05/26/17 18:00 67 16 136/87 100 Mechanical Ventilator 28 05/26/17 17:30 72 16 128/65 100 Mechanical Ventilator 28 05/26/17 17:00 72 17 95/62 100 Mechanical Ventilator 28 05/26/17 16:39 81 18 28 05/26/17 16:30 74 16 91/58 99 Mechanical Ventilator 28 05/26/17 16:00 28 05/26/17 16:00 97.6 99 17 92/62 100 Mechanical Ventilator 28 05/26/17 16:00 71 05/26/17 15:30 137 19 110/71 99 Mechanical Ventilator 28 05/26/17 15:30 138 17 28 05/26/17 15:00 135 19 96/78 100 Mechanical Ventilator 28 05/26/17 14:30 135 19 104/81 100 Mechanical Ventilator 28 05/26/17 14:00 136 19 114/76 100 Mechanical Ventilator 28 05/26/17 13:30 134 18 109/76 100 Mechanical Ventilator 28 05/26/17 13:01 132 19 Mechanical Ventilator 15.0 28 05/26/17 13:01 130 19 28 05/26/17 13:00 110 18 127/98 99 Mechanical Ventilator 28 05/26/17 12:30 137 20 96/75 99 Mechanical Ventilator 28 05/26/17 12:00 76 05/26/17 12:00 98.4 76 19 99/74 99 Mechanical Ventilator 28 05/26/17 12:00 28 05/26/17 11:33 97.5 05/26/17 11:30 82 18 90/68 98 Mechanical Ventilator 28 05/26/17 11:01 79 18 28 05/26/17 11:00 79 19 102/72 97 Mechanical Ventilator 28 05/26/17 10:30 92 19 89/71 96 Mechanical Ventilator 28 Laboratory Tests 05/27/17 04:50: White Blood Count 27.7*H, Red Blood Count 3.26L, Hemoglobin 9.4L, Hematocrit 28.1L, Mean Corpuscular Volume 86, Mean Corpuscular Hemoglobin 28.8, Mean Corpuscular Hemoglobin Concent 33.3, Red Cell Distribution Width 16.1H, Platelet Count 593H, Mean Platelet Volume 5.6L, Neutrophils (%) (Auto) , Lymphocytes (%) (Auto) , Monocytes (%) (Auto) , Eosinophils (%) (Auto) , Basophils (%) (Auto) , Differential Total Cells Counted 100, Neutrophils % ( Manual) 88H, Lymphocytes % (Manual) 7L, Monocytes % (Manual) 5, Eosinophils % ( Manual) 0, Basophils % (Manual) 0, Band Neutrophils 0, Nucleated Red Blood Cells 1, Platelet Estimate IncreasedH, Platelet Morphology Normal, Polychromasia 2+, Hypochromasia 1+, Anisocytosis 1+, Sodium Level 145, Potassium Level 3.4L, Chloride Level 105, Carbon Dioxide Level 32, Anion Gap 8, Blood Urea Nitrogen 46H, Creatinine 1.5H, Estimat Glomerular Filtration Rate 35.2, Glucose Level 201H, Uric Acid 10.9H, Calcium Level 8.3L, Phosphorus Level 3.1, Magnesium Level 1.8, Total Bilirubin 0.6, Aspartate Amino Transf (AST/SGOT ) 52H, Alanine Aminotransferase (ALT/SGPT) 132H, Alkaline Phosphatase 211H, C- Reactive Protein, Quantitative 4.8H, Pro-B-Type Natriuretic Peptide 6034H, Total Protein 5.3L, Albumin 2.2L, Globulin 3.1, Albumin/Globulin Ratio 0.7L Height (Feet): 5 Height (Inches): 0.00 Weight (Pounds): 209 General Appearance: no apparent distress Cardiovascular: normal rate Respiratory/Chest: decreased breath sounds Abdomen: soft, distended Extremities: other - edema + Objective no other changes QIANA SALGADO May 27, 2017 10:14
[2017-05-27] MEDS: Heparin 5000 units/ml inj SUBQ SCH ×2 (10:51→21:14)
[2017-05-27] MEDS ORDERED: KCl 10% 20 mEq/15ml liquid NG ONE (11:00)
[2017-05-27] MEDS: Midodrine 10mg tab ORAL SCH ×2 (13:00→18:00)
[2017-05-27] MEDS: Norco 5mg/325mg tab GT PRN (16:07)
--- NOTE | 2017-05-27 19:22 | General Progress Note ---
Assessment/Plan Assessment/Plan Assessment - Encephalopathy - Resp failure - Trach - dysphagia - PEG - edema / anasarca - abd distention due to ascites - no SBP on tap - UTI/PNA - leukocytosis - azotemia - pericardial effusion - marked thrombocytosis - poor Px Recommendations - continue TF - cardiology f/u - hold off on GT change - check C Diff - will need periodic paracentesis - continue abx Subjective Allergies: Coded Allergies: OLANZAPINE (Verified Allergy, Severe, RESP FAILURE, 11/25/13) VANCOMYCIN (Verified Allergy, Severe, 11/25/13) PIPERACILLIN (Verified Allergy, Intermediate, HIVES, 11/25/13) TAZOBACTAM (Verified Allergy, Intermediate, HIVES, 11/25/13) Subjective d/w RN tolerating TF abd slightly less distended Objective Last 24 Hour Vital Signs Date Time Temp Pulse Resp B/P (MAP) Pulse Ox O2 Delivery O2 Flow Rate FiO2 05/27/17 18:00 16 114/70 100 Mechanical Ventilator 05/27/17 17:05 63 16 28 05/27/17 17:00 16 137/66 100 Mechanical Ventilator 28 05/27/17 16:00 98.3 16 152/107 100 Mechanical Ventilator 28 05/27/17 16:00 28 05/27/17 16:00 62 05/27/17 15:02 63 16 28 05/27/17 15:00 16 162/93 100 Mechanical Ventilator 28 05/27/17 14:00 98.3 63 16 160/71 100 Mechanical Ventilator 28 05/27/17 13:26 62 16 28 05/27/17 13:00 58 16 125/71 Mechanical Ventilator 28 05/27/17 12:30 58 16 110/66 100 Mechanical Ventilator 28 05/27/17 12:00 28 05/27/17 12:00 58 05/27/17 12:00 98.5 60 16 121/70 100 Mechanical Ventilator 28 05/27/17 11:30 58 16 108/68 100 Mechanical Ventilator 28 05/27/17 11:00 58 16 121/70 100 Mechanical Ventilator 28 05/27/17 10:44 61 16 28 05/27/17 10:00 58 16 108/68 Mechanical Ventilator 28 05/27/17 09:08 61 16 28 05/27/17 09:00 60 16 113/65 100 Mechanical Ventilator 28 05/27/17 08:00 98.0 60 16 114/71 100 Mechanical Ventilator 28 05/27/17 08:00 58 05/27/17 08:00 28 05/27/17 07:00 60 16 113/67 100 Mechanical Ventilator 28 05/27/17 06:46 63 16 28 05/27/17 06:30 62 16 127/68 100 Mechanical Ventilator 28 05/27/17 06:00 64 16 94/55 100 Mechanical Ventilator 28 05/27/17 05:30 64 16 101/70 100 Mechanical Ventilator 28 05/27/17 05:10 98 16 28 05/27/17 05:00 63 16 114/72 100 Mechanical Ventilator 28 05/27/17 04:30 62 16 122/71 99 Mechanical Ventilator 28 05/27/17 04:00 28 05/27/17 04:00 97.5 65 16 88/50 100 Mechanical Ventilator 28 05/27/17 03:32 70 05/27/17 03:30 65 17 100/58 100 Mechanical Ventilator 28 05/27/17 03:20 65 16 28 05/27/17 03:00 65 16 116/70 100 Mechanical Ventilator 28 05/27/17 02:30 65 16 84/51 100 Mechanical Ventilator 28 05/27/17 02:00 66 16 89/62 100 Mechanical Ventilator 28 05/27/17 01:30 66 16 99/74 100 Mechanical Ventilator 28 05/27/17 01:10 64 16 28 05/27/17 01:00 66 16 97/67 100 Mechanical Ventilator 28 05/27/17 00:30 66 16 108/65 100 Mechanical Ventilator 28 05/27/17 00:09 66 05/27/17 00:00 28 05/27/17 00:00 98.1 67 16 94/65 100 Mechanical Ventilator 28 05/26/17 23:30 69 16 102/74 100 Mechanical Ventilator 28 05/26/17 23:11 70 16 28 05/26/17 23:00 69 16 90/62 100 Mechanical Ventilator 28 05/26/17 22:30 67 16 106/68 100 Mechanical Ventilator 28 05/26/17 22:00 72 16 74/56 100 Mechanical Ventilator 28 05/26/17 21:30 74 16 85/56 100 Mechanical Ventilator 28 05/26/17 21:23 73 16 100 Mechanical Ventilator 28 05/26/17 21:15 28 05/26/17 21:15 69 16 99 Mechanical Ventilator 15.0 28 05/26/17 21:00 69 16 28 05/26/17 21:00 69 16 116/74 100 Mechanical Ventilator 28 05/26/17 20:30 72 16 133/83 99 Mechanical Ventilator 28 05/26/17 20:04 118 05/26/17 20:00 97.8 73 16 145/93 99 Mechanical Ventilator 28 05/26/17 20:00 28 05/26/17 19:30 75 17 151/96 99 Mechanical Ventilator 28 Intake and Output 05/27/17 05/28/17 19:00 07:00 Intake Total 560 ml Output Total 55 ml Balance 505 ml Free Water 60 ml Tube Feeding 440 ml Other 60 ml Output Urine Total 55 ml Laboratory Tests 05/27/17 04:50: White Blood Count 27.7*H, Red Blood Count 3.26L, Hemoglobin 9.4L, Hematocrit 28.1L, Mean Corpuscular Volume 86, Mean Corpuscular Hemoglobin 28.8, Mean Corpuscular Hemoglobin Concent 33.3, Red Cell Distribution Width 16.1H, Platelet Count 593H, Mean Platelet Volume 5.6L, Neutrophils (%) (Auto) , Lymphocytes (%) (Auto) , Monocytes (%) (Auto) , Eosinophils (%) (Auto) , Basophils (%) (Auto) , Differential Total Cells Counted 100, Neutrophils % ( Manual) 88H, Lymphocytes % (Manual) 7L, Monocytes % (Manual) 5, Eosinophils % ( Manual) 0, Basophils % (Manual) 0, Band Neutrophils 0, Nucleated Red Blood Cells 1, Platelet Estimate IncreasedH, Platelet Morphology Normal, Polychromasia 2+, Hypochromasia 1+, Anisocytosis 1+, Sodium Level 145, Potassium Level 3.4L, Chloride Level 105, Carbon Dioxide Level 32, Anion Gap 8, Blood Urea Nitrogen 46H, Creatinine 1.5H, Estimat Glomerular Filtration Rate 35.2, Glucose Level 201H, Uric Acid 10.9H, Calcium Level 8.3L, Phosphorus Level 3.1, Magnesium Level 1.8, Total Bilirubin 0.6, Aspartate Amino Transf (AST/SGOT ) 52H, Alanine Aminotransferase (ALT/SGPT) 132H, Alkaline Phosphatase 211H, C- Reactive Protein, Quantitative 4.8H, Pro-B-Type Natriuretic Peptide 6034H, Total Protein 5.3L, Albumin 2.2L, Globulin 3.1, Albumin/Globulin Ratio 0.7L Height (Feet): 5 Height (Inches): 0.00 Weight (Pounds): 209 Objective Obese WW NCAT supple Chest: coarse BS RRR obese, firm and distended abd, (+) GT (++) edema / anasarca OBS JILL WHITNEY May 27, 2017 19:22
[2017-05-27] MEDS: Dyna-Hex 2% Top Sol 2oz TOPIC SCH (20:16)
[2017-05-27] MEDS: Amiodarone 200mg tab GT SCH (21:12)
--- NOTE | 2017-05-27 21:30 | Progress Note ---
DATE: 05/27/2017 CARDIOLOGY PROGRESS NOTE SUBJECTIVE: The patient with fewer episodes of atrial fibrillation. She is status post paracentesis. She is also status post hemodialysis with ultrafiltration. OBJECTIVE: VITAL SIGNS: Blood pressure 113/67, pulse 60, and respirations 16. LUNGS: Bilateral breath sounds. No wheezing. HEART: Regular rhythm and rate. Normal S1 and S2. ABDOMEN: Obese. EXTREMITIES: With 1+ dependent edema. LABORATORY DATA: White count 27.7 and hemoglobin 9.4. Sodium 145, potassium 3.4, bicarbonate 32, BUN 46, creatinine 1.5, and magnesium 1.8. Pro-natriuretic peptide 6000. Albumin 2.2. IMPRESSION: 1. Sepsis shock. 2. Paroxysmal atrial fibrillation with rapid ventricular response. 3. Acute renal failure. 4. Urinary tract infection. 5. Respiratory failure with tracheostomy, presently ventilated. 6. Hypoalbuminemia. 7. Pericardial fluid collection. 8. Extensive Gram-negative pneumonia with Serratia and Pseudomonas aeruginosa. 9. Urinary tract infection with Klebsiella. PLAN: 1. Antibiotics per Infectious Disease science consultant. 2. Hemodialysis with ultrafiltration based on clinical parameters per narrow fabrics weaver. 3. Continue amiodarone transitioning from IV to oral loading dose. 4. Awaiting transfer to higher level of care for consideration of pericardial drainage and stripping. 5. Continue ventilator support. 6. Remains critical and guarded. Case discussed in detail with the patient's sister yesterday in person. Ramo Toure M.D. DR: Marely JOB#: [id number] CC:
[2017-05-28] VITALS (24 sets, daily range): BP systolic 111–153; BP diastolic 58–116
[2017-05-28] MEDS: metroNIDAZOLE 500mg tab GT SCH ×3 (03:57→20:36)
[2017-05-28 05:39] LABS: MEAN CORPUSCULAR HGB CONC 35.7 G/DL (32.0-36.0); MEAN CORPUSCULAR VOLUME 87 FL (80-99); MEAN PLATELET VOLUME 5.8 FL (6.5-10.1); PLATELET COUNT 489 K/UL (150-450); RED CELL DISTRIBUTION WIDTH 16.7 % (11.6-14.8)
[2017-05-28] MEDS: Aluminum Hydroxide Gel Susp 15ml GT SCH (05:48)
[2017-05-28 06:00] LABS: WHITE BLOOD COUNT 22.4 K/UL (4.8-10.8)
[2017-05-28 06:15] LABS: ALANINE AMINOTRANSFERASE 109 U/L (12-78); ALBUMIN/GLOBULIN RATIO 0.7 (1.0-2.7); ANION GAP 8 mmol/L (5-15); ASPARTATE AMINO TRANSFERASE 52 U/L (15-37); CALCIUM 8.6 MG/DL (8.5-10.1); CARBON DIOXIDE 30 MMOL/L (21-32); CHLORIDE 105 MMOL/L (98-107); CREATININE 1.5 MG/DL (0.55-1.30); CRP QUANT 3.1 mg/dL (0.00-0.90); GLOMERULAR FILTRATION RATE 35.2 mL/min (>60); PHOSPHORUS 2.1 MG/DL (2.5-4.9); POTASSIUM 3.9 MMOL/L (3.5-5.1); SODIUM 143 MMOL/L (136-145); TOTAL PROTEIN 5.2 G/DL (6.4-8.2); URIC ACID 10.5 MG/DL (2.6-7.2)
[2017-05-28] MEDS: NovoLOG Insulin Flexpen SUBQ SCH ×4 (06:38→20:43)
[2017-05-28 07:32] LABS: ANISOCYTOSIS 1+; BAND NEUTROPHILS % (MANUAL) 0 % (0-8); BASOPHILS % (MANUAL) 0 % (0-2); EOSINOPHILS % (MANUAL) 2 % (0-3); HYPOCHROMASIA 2+; LYMPHOCYTES % (MANUAL) 7 % (20-45); NEUTROPHILS % (MANUAL) 88 % (45-75); NUCLEATED RED BLOOD CELLS 2 /100 WBC; PLATELET ESTIMATE ADEQUATE; PLATELET MORPHOLOGY NORMAL; POLYCHROMASIA 2+; SPHEROCYTES 2+; TOTAL CELLS COUNTED 100
--- NOTE | 2017-05-28 08:04 | General Progress Note ---
Assessment/Plan Problem List: (1) Sepsis ICD Codes: A41.9 - Sepsis, unspecified organism SNOMED: 45473295 (2) Pneumonia ICD Codes: J18.9 - Pneumonia, unspecified organism SNOMED: 220338630 (3) Acute renal failure ICD Codes: N17.9 - Acute kidney failure, unspecified SNOMED: 57295828 (4) Pericardial effusion ICD Codes: I31.3 - Pericardial effusion (noninflammatory) SNOMED: 884578734 (5) Tracheostomy malfunction ICD Codes: J95.03 - Malfunction of tracheostomy stoma SNOMED: 98160475 (6) UTI (urinary tract infection) ICD Codes: N39.0 - Urinary tract infection, site not specified SNOMED: 29969712, 555912796 Qualifiers: Qualified Codes: N30.01 - Acute cystitis with hematuria Status: stable Assessment/Plan HD iv abx follow up cultures monitor wbc- trending down vent support resp rx monitor renal fxn HD per renal poor prognosis. d/w caregiver. dnr try to transfer to tertiary hospital for pericardial drainage- no beds currently remains critical and guarded prognosis remains poor Subjective ROS Limited/Unobtainable: Yes Constitutional: Reports: malaise, weakness HEENT: Reports: no symptoms Cardiovascular: Reports: edema Respiratory: Reports: SOB at rest Gastrointestinal/Abdominal: Reports: abdomen distended, difficulty swallowing Genitourinary: Reports: no symptoms Neurologic/Psychiatric: Reports: pre-existing deficit Endocrine: Reports: no symptoms Hematologic/Lymphatic: Reports: anemia Allergies: Coded Allergies: OLANZAPINE (Verified Allergy, Severe, RESP FAILURE, 11/25/13) VANCOMYCIN (Verified Allergy, Severe, 11/25/13) PIPERACILLIN (Verified Allergy, Intermediate, HIVES, 11/25/13) TAZOBACTAM (Verified Allergy, Intermediate, HIVES, 11/25/13) All Systems: reviewed and negative except above Subjective no events. currently on HD. no real change. poorly responsive at baseline. no beds and [facility] Objective Last 24 Hour Vital Signs Date Time Temp Pulse Resp B/P (MAP) Pulse Ox O2 Delivery O2 Flow Rate FiO2 05/28/17 07:31 67 16 28 05/28/17 07:00 62 16 140/70 99 Mechanical Ventilator 28 05/28/17 06:00 60 16 133/71 100 Mechanical Ventilator 05/28/17 05:40 Mechanical Ventilator 15.0 28 05/28/17 05:05 71 16 28 05/28/17 05:00 65 16 124/68 100 Mechanical Ventilator 28 05/28/17 04:00 28 05/28/17 04:00 97.6 62 16 111/67 100 Mechanical Ventilator 28 05/28/17 03:20 63 16 28 05/28/17 03:13 63 05/28/17 03:00 63 16 120/58 100 Mechanical Ventilator 28 05/28/17 02:00 61 16 122/66 100 Mechanical Ventilator 28 05/28/17 01:10 74 16 28 05/28/17 01:00 62 16 115/65 100 Mechanical Ventilator 28 05/28/17 00:00 59 05/28/17 00:00 97.6 59 16 125/65 100 Mechanical Ventilator 28 05/28/17 00:00 28 05/27/17 23:11 60 16 28 05/27/17 23:00 59 16 107/57 100 Mechanical Ventilator 28 05/27/17 22:00 59 16 109/82 100 Mechanical Ventilator 28 05/27/17 21:00 59 16 105/65 100 Mechanical Ventilator 28 05/27/17 21:00 71 16 28 05/27/17 20:00 28 05/27/17 20:00 97.6 60 16 104/60 100 Mechanical Ventilator 28 05/27/17 19:01 61 05/27/17 19:00 62 16 28 05/27/17 19:00 58 16 132/70 100 Mechanical Ventilator 28 05/27/17 18:00 16 114/70 100 Mechanical Ventilator 28 05/27/17 17:05 63 16 28 05/27/17 17:00 16 137/66 100 Mechanical Ventilator 28 05/27/17 16:00 98.3 16 152/107 100 Mechanical Ventilator 28 05/27/17 16:00 28 05/27/17 16:00 62 05/27/17 15:02 63 16 28 05/27/17 15:00 16 162/93 100 Mechanical Ventilator 28 05/27/17 14:00 98.3 63 16 160/71 100 Mechanical Ventilator 28 05/27/17 13:26 62 16 28 05/27/17 13:00 58 16 125/71 Mechanical Ventilator 28 05/27/17 12:30 58 16 110/66 100 Mechanical Ventilator 28 05/27/17 12:00 28 05/27/17 12:00 58 05/27/17 12:00 98.5 60 16 121/70 100 Mechanical Ventilator 28 05/27/17 11:30 58 16 108/68 100 Mechanical Ventilator 28 05/27/17 11:00 58 16 121/70 100 Mechanical Ventilator 28 05/27/17 10:44 61 16 28 05/27/17 10:00 58 16 108/68 Mechanical Ventilator 28 05/27/17 09:08 61 16 28 05/27/17 09:00 60 16 113/65 100 Mechanical Ventilator 28 Laboratory Tests 05/28/17 04:50: White Blood Count 22.4*H, Red Blood Count 3.00L, Hemoglobin 9.3L, Hematocrit 26.0L, Mean Corpuscular Volume 87, Mean Corpuscular Hemoglobin 31.0, Mean Corpuscular Hemoglobin Concent 35.7, Red Cell Distribution Width 16.7H, Platelet Count 489H, Mean Platelet Volume 5.8L, Neutrophils (%) (Auto) , Lymphocytes (%) (Auto) , Monocytes (%) (Auto) , Eosinophils (%) (Auto) , Basophils (%) (Auto) , Differential Total Cells Counted 100, Neutrophils % ( Manual) 88H, Lymphocytes % (Manual) 7L, Monocytes % (Manual) 3, Eosinophils % ( Manual) 2, Basophils % (Manual) 0, Band Neutrophils 0, Nucleated Red Blood Cells 2, Platelet Estimate Adequate, Platelet Morphology Normal, Polychromasia 2 +, Hypochromasia 2+, Anisocytosis 1+, Spherocytes 2+, Sodium Level 143, Potassium Level 3.9, Chloride Level 105, Carbon Dioxide Level 30, Anion Gap 8, Blood Urea Nitrogen 51H, Creatinine 1.5H, Estimat Glomerular Filtration Rate 35.2, Glucose Level 140H, Uric Acid 10.5H, Calcium Level 8.6, Phosphorus Level 2.1L, Magnesium Level 2.0, Total Bilirubin 0.5, Aspartate Amino Transf (AST/SGOT ) 52H, Alanine Aminotransferase (ALT/SGPT) 109H, Alkaline Phosphatase 209H, C- Reactive Protein, Quantitative 3.1H, Pro-B-Type Natriuretic Peptide 4499H, Total Protein 5.2L, Albumin 2.2L, Globulin 3.0, Albumin/Globulin Ratio 0.7L Height (Feet): 5 Height (Inches): 0.00 Weight (Pounds): 206 Objective General Appearance: WD/WN, alert Neck: supple Cardiovascular: regular rhythm Respiratory/Chest: lungs clear Abdomen: hypoactive bowel sounds, distended Edema: severe edema Neurologic: unresponsive OCHOA BISWAS May 28, 2017 08:04
[2017-05-28] MEDS: Atenolol 12.5mg GT SCH (09:10)
[2017-05-28] MEDS: Amiodarone 200mg tab GT SCH ×2 (09:10→20:36)
[2017-05-28] MEDS: Midodrine 10mg tab ORAL SCH (09:10)
[2017-05-28] MEDS: Heparin 5000 units/ml inj SUBQ SCH ×2 (09:11→20:37)
[2017-05-28] MEDS: Pantoprazole Inj IVP SCH (09:11)
[2017-05-28] MEDS: Lactobacillus-GG tablet GT SCH (09:11)
[2017-05-28] MEDS: SYSTANE BOTH EYES SCH ×4 (09:12→20:43)
[2017-05-28] MEDS: [UNRECOGNIZED DRUG - OTHER] BOTH EYES SCH ×4 (09:12→20:37)
[2017-05-28] MEDS: Ipratropium 0.02% Inh Soln 2.5ml UD HHN SCH ×2 (10:02→21:33)
[2017-05-28] MEDS: Albuterol ud Inhalation HHN SCH ×2 (10:02→21:33)
--- NOTE | 2017-05-28 10:24 | Discharge Summary ---
Discharge Summary Hospital Course Date of Admission May 21, 2017 at 13:47 Date of Discharge Admitting Diagnosis please see attached critical care note HPI 63-year-old unfortunate female presents with sepsis and acute renal failure. Patient was initially admitted to the unit was seen by multiple consultants including nephrology and infectious disease and cardiology. Have a pericardial echo genetic fluid collection by CT and echocardiogram. The patient also noted to have significant renal failure with oliguria significant third spacing requiring dialysis. Patient also noted to have atrial fibrillation was placed currently in sinus rhythm. Cultures noted from the sputum as well as from the urine all of which are sensitive to cefepime. The patient initially with significant leukocytosis but responded to the antibiotics appropriately. The patient also noted elevated BUN and creatinine . The patient mental status is at baseline for mental status. The patient is chronically on a ventilator and his Chang bedbound and fully dependent. Patient also has chronic constipation. The patient lives at home with the care of her sister. Testing obtained includes a paracentesis with 2 L of fluid on the . Chest x -ray showed minimal disease looks like Compressive atelectasis. CT of the abdomen that was performed on admission demonstrated the pericardial fluid. It also demonstrated diffuse fatty liver as well as questionable process. The patient also clinically the renal cysts on ultrasound. Care was discussed with sister who still wants full code. The patient would need a higher level care for further evaluation if the pericardial effusion for pericardiocentesis further thoracic intervention. Patient will need ongoing hemodialysis for now although urine output has improved with approximately 100 cc of urine overnight. Patient electrolyte balance is improved overall acidemia as well improved. Patient remains guarded with overall guarded prognosis. The patient to continue with current medical management transfer to [facility] ongoing higher level care and further stabilization Discharge Condition Upon Discharge: critical Discharge Disposition Patient was discharged to [facility] Discharge Diagnoses: (1) Acute renal failure (2) Pericardial effusion (3) Sepsis (4) UTI (urinary tract infection) (5) Pneumonia ANTIONETTE RODRIGUEZ May 28, 2017 10:24
--- NOTE | 2017-05-28 10:25 | Nephrology Progress Note ---
Assessment/Plan Problem List: (1) Acute renal failure (2) Sepsis (3) UTI (urinary tract infection) (4) Tracheostomy dependence (5) Hypotension Assessment dialysed 05/26 and 850 cc removed- re do 05/28 Ascitic tap 2 liter removed 05/25 Urine out put remains low persistantly -. Acute renal failure due to ? sepsis , intravascular volume depletion, low BP... Cr rising- Urine out put down- -. Hypoalbuminemia: - Increase loss: NS - Decrease production: Nutritional -. Shock, sepsis, pneumonia, pericardial effusion. -. History of hypertension, now with low blood pressure. -. Hyperkalemia. improved -. Hyponatremia. improved -. Prerenal azotemia. -. Respiratory failure with tracheostomy. -. Anasarca with ascites. due to low Albumin -. HypoThyroidism . Plan dialysed and 2 liter removed K supplement midodrine dialysis as needed and UF trial as BP remains stable STOP ALL NON FORMULARY SUPPLEMENTS- Diet to Nepro- DC Amphojel Antibiotics- DC Bicitra IV protonix Pulmonary support- Keep BP in check, midodrine when needed Monitor renal parameters- Avoid nephrotoxics 24 H urine for proteins pending per orders talked to SOREN connors lpn care manager and Dr De León 05/23 Long phone conversation with sister who requests transfer to [facility] 05/23 down on IV fluid discussed with PHIL Fernandez Subjective ROS Limited/Unobtainable: Yes Objective Objective Last 24 Hour Vital Signs Date Time Temp Pulse Resp B/P (MAP) Pulse Ox O2 Delivery O2 Flow Rate FiO2 05/28/17 10:06 60 16 Mechanical Ventilator 05/28/17 10:04 60 16 98 Mechanical Ventilator 05/28/17 10:00 62 15 114/68 99 Mechanical Ventilator 05/28/17 10:00 Mechanical Ventilator 15.0 05/28/17 09:15 64 16 28 05/28/17 09:00 63 16 125/65 98 Mechanical Ventilator 05/28/17 08:00 97.8 65 16 114/79 98 Mechanical Ventilator 05/28/17 08:00 69 05/28/17 08:00 28 05/28/17 07:31 67 16 28 05/28/17 07:00 62 16 140/70 99 Mechanical Ventilator 05/28/17 06:00 60 16 133/71 100 Mechanical Ventilator 05/28/17 05:40 Mechanical Ventilator 15.0 28 05/28/17 05:05 71 16 28 05/28/17 05:00 65 16 124/68 100 Mechanical Ventilator 28 05/28/17 04:00 28 05/28/17 04:00 97.6 62 16 111/67 100 Mechanical Ventilator 28 05/28/17 03:20 63 16 28 05/28/17 03:13 63 05/28/17 03:00 63 16 120/58 100 Mechanical Ventilator 28 05/28/17 02:00 61 16 122/66 100 Mechanical Ventilator 28 05/28/17 01:10 74 16 28 05/28/17 01:00 62 16 115/65 100 Mechanical Ventilator 28 05/28/17 00:00 59 05/28/17 00:00 97.6 59 16 125/65 100 Mechanical Ventilator 28 05/28/17 00:00 28 05/27/17 23:11 60 16 28 05/27/17 23:00 59 16 107/57 100 Mechanical Ventilator 28 05/27/17 22:00 59 16 109/82 100 Mechanical Ventilator 28 05/27/17 21:00 59 16 105/65 100 Mechanical Ventilator 28 05/27/17 21:00 71 16 28 05/27/17 20:00 28 05/27/17 20:00 97.6 60 16 104/60 100 Mechanical Ventilator 28 05/27/17 19:01 61 05/27/17 19:00 62 16 28 05/27/17 19:00 58 16 132/70 100 Mechanical Ventilator 28 05/27/17 18:00 16 114/70 100 Mechanical Ventilator 28 05/27/17 17:05 63 16 28 05/27/17 17:00 16 137/66 100 Mechanical Ventilator 28 05/27/17 16:00 98.3 16 152/107 100 Mechanical Ventilator 28 05/27/17 16:00 28 05/27/17 16:00 62 05/27/17 15:02 63 16 28 05/27/17 15:00 16 162/93 100 Mechanical Ventilator 28 05/27/17 14:00 98.3 63 16 160/71 100 Mechanical Ventilator 28 05/27/17 13:26 62 16 28 05/27/17 13:00 58 16 125/71 Mechanical Ventilator 28 05/27/17 12:30 58 16 110/66 100 Mechanical Ventilator 28 05/27/17 12:00 28 05/27/17 12:00 58 05/27/17 12:00 98.5 60 16 121/70 100 Mechanical Ventilator 28 05/27/17 11:30 58 16 108/68 100 Mechanical Ventilator 28 05/27/17 11:00 58 16 121/70 100 Mechanical Ventilator 28 05/27/17 10:44 61 16 28 Intake and Output 05/28/17 05/29/17 19:00 07:00 Intake Total 40 ml Output Total 2100 ml Balance -2060 ml Tube Feeding 40 ml Output Urine Total 0 ml Hemodialysis UF 2100 ml Laboratory Tests 05/28/17 04:50: White Blood Count 22.4*H, Red Blood Count 3.00L, Hemoglobin 9.3L, Hematocrit 26.0L, Mean Corpuscular Volume 87, Mean Corpuscular Hemoglobin 31.0, Mean Corpuscular Hemoglobin Concent 35.7, Red Cell Distribution Width 16.7H, Platelet Count 489H, Mean Platelet Volume 5.8L, Neutrophils (%) (Auto) , Lymphocytes (%) (Auto) , Monocytes (%) (Auto) , Eosinophils (%) (Auto) , Basophils (%) (Auto) , Differential Total Cells Counted 100, Neutrophils % ( Manual) 88H, Lymphocytes % (Manual) 7L, Monocytes % (Manual) 3, Eosinophils % ( Manual) 2, Basophils % (Manual) 0, Band Neutrophils 0, Nucleated Red Blood Cells 2, Platelet Estimate Adequate, Platelet Morphology Normal, Polychromasia 2 +, Hypochromasia 2+, Anisocytosis 1+, Spherocytes 2+, Sodium Level 143, Potassium Level 3.9, Chloride Level 105, Carbon Dioxide Level 30, Anion Gap 8, Blood Urea Nitrogen 51H, Creatinine 1.5H, Estimat Glomerular Filtration Rate 35.2, Glucose Level 140H, Uric Acid 10.5H, Calcium Level 8.6, Phosphorus Level 2.1L, Magnesium Level 2.0, Total Bilirubin 0.5, Aspartate Amino Transf (AST/SGOT ) 52H, Alanine Aminotransferase (ALT/SGPT) 109H, Alkaline Phosphatase 209H, C- Reactive Protein, Quantitative 3.1H, Pro-B-Type Natriuretic Peptide 4499H, Total Protein 5.2L, Albumin 2.2L, Globulin 3.0, Albumin/Globulin Ratio 0.7L Height (Feet): 5 Height (Inches): 0.00 Weight (Pounds): 206 General Appearance: no apparent distress EENT: other - intubated Cardiovascular: normal rate Respiratory/Chest: decreased breath sounds Abdomen: distended Extremities: other - edema+ Objective no other changes QIANA SALGADO May 28, 2017 10:25
--- NOTE | 2017-05-28 11:04 | Pulmonology Progress Note ---
Assessment/Plan Assessment/Plan IMPRESSION respiratory failure possible UTI sepsis ARF/CRF hyperkalemia pericardial effusion possible renal cyst vs mass hypertension (now with normal BP off meds) chronic encephalopathy hypothyroidism diabetes possible cirrhosis atrial fib, paroxysmal hyperuricemia pain possible ascites pericardial fluid collection PLAN ventilator management- as is monitor acid base for change still with high PIP of 50s MR abdomen and ultrasound when stable monitor ascites and need for repeat tap sliding scale and monitor sugars- monitor ability to tolerate PO and then resume NPH monitor for residuals GT care GI/renal/ID/cards evaluation monitor clinically antibiotics noted- ID discussed WBC improved watch platelets- HD- as able medications/laboratory data/nursing notes/ICU care reviewed in detail note reviewed and edited care discussed with RN and RT ICU time spent 40 minutes Subjective ROS Limited/Unobtainable: Yes Allergies: Coded Allergies: OLANZAPINE (Verified Allergy, Severe, RESP FAILURE, 11/25/13) VANCOMYCIN (Verified Allergy, Severe, 11/25/13) PIPERACILLIN (Verified Allergy, Intermediate, HIVES, 11/25/13) TAZOBACTAM (Verified Allergy, Intermediate, HIVES, 11/25/13) Subjective overnight events reviewed labs noted rate now controlled d/w cards and renal d/w sister at length x 30 minutes update given for transfer- with [facility] physicians; on list discharge summary completed Objective Last 24 Hour Vital Signs Date Time Temp Pulse Resp B/P (MAP) Pulse Ox O2 Delivery O2 Flow Rate FiO2 05/28/17 08:00 69 05/28/17 08:00 28 05/28/17 07:31 67 16 28 05/28/17 07:00 62 16 140/70 99 Mechanical Ventilator 05/28/17 06:00 60 16 133/71 100 Mechanical Ventilator 05/28/17 05:40 Mechanical Ventilator 15.0 28 05/28/17 05:05 71 16 28 05/28/17 05:00 65 16 124/68 100 Mechanical Ventilator 05/28/17 04:00 28 05/28/17 04:00 97.6 62 16 111/67 100 Mechanical Ventilator 05/28/17 03:20 63 16 28 05/28/17 03:13 63 05/28/17 03:00 63 16 120/58 100 Mechanical Ventilator 05/28/17 02:00 61 16 122/66 100 Mechanical Ventilator 05/28/17 01:10 74 16 28 05/28/17 01:00 62 16 115/65 100 Mechanical Ventilator 28 05/28/17 00:00 59 05/28/17 00:00 97.6 59 16 125/65 100 Mechanical Ventilator 28 05/28/17 00:00 28 05/27/17 23:11 60 16 28 05/27/17 23:00 59 16 107/57 100 Mechanical Ventilator 28 05/27/17 22:00 59 16 109/82 100 Mechanical Ventilator 28 05/27/17 21:00 59 16 105/65 100 Mechanical Ventilator 28 05/27/17 21:00 71 16 28 05/27/17 20:00 28 05/27/17 20:00 97.6 60 16 104/60 100 Mechanical Ventilator 28 05/27/17 19:01 61 05/27/17 19:00 62 16 28 05/27/17 19:00 58 16 132/70 100 Mechanical Ventilator 28 05/27/17 18:00 16 114/70 100 Mechanical Ventilator 28 05/27/17 17:05 63 16 28 05/27/17 17:00 16 137/66 100 Mechanical Ventilator 28 05/27/17 16:00 98.3 16 152/107 100 Mechanical Ventilator 28 05/27/17 16:00 28 05/27/17 16:00 62 05/27/17 15:02 63 16 28 05/27/17 15:00 16 162/93 100 Mechanical Ventilator 28 05/27/17 14:00 98.3 63 16 160/71 100 Mechanical Ventilator 28 05/27/17 13:26 62 16 28 05/27/17 13:00 58 16 125/71 Mechanical Ventilator 28 05/27/17 12:30 58 16 110/66 100 Mechanical Ventilator 28 05/27/17 12:00 28 05/27/17 12:00 58 05/27/17 12:00 98.5 60 16 121/70 100 Mechanical Ventilator 28 05/27/17 11:30 58 16 108/68 100 Mechanical Ventilator 28 Intake and Output 05/28/17 05/29/17 19:00 07:00 Intake Total 40 ml Output Total 0 ml Balance 40 ml Tube Feeding 40 ml Output Urine Total 0 ml Objective WDWN female chronically ill NAD coarse breath sounds bilaterally without rhonchi or wheeze PIP on vent slightly improved [id number] tachy without MRG NABS nontender no HSM; protuberant; GT- less distended no CC some edema diffusely short neck unresponsive reviewed and edited Microbiology Date/Time Source Procedure Growth Status 05/25/17 16:00 Other Fluid Gram Stain - Final Resulted 05/25/17 16:00 Other Fluid Body Fluid Culture - Preliminary NO GROWTH AFTER 48 HOURS Resulted Laboratory Tests 05/28/17 04:50: White Blood Count 22.4*H, Red Blood Count 3.00L, Hemoglobin 9.3L, Hematocrit 26.0L, Mean Corpuscular Volume 87, Mean Corpuscular Hemoglobin 31.0, Mean Corpuscular Hemoglobin Concent 35.7, Red Cell Distribution Width 16.7H, Platelet Count 489H, Mean Platelet Volume 5.8L, Neutrophils (%) (Auto) , Lymphocytes (%) (Auto) , Monocytes (%) (Auto) , Eosinophils (%) (Auto) , Basophils (%) (Auto) , Differential Total Cells Counted 100, Neutrophils % ( Manual) 88H, Lymphocytes % (Manual) 7L, Monocytes % (Manual) 3, Eosinophils % ( Manual) 2, Basophils % (Manual) 0, Band Neutrophils 0, Nucleated Red Blood Cells 2, Platelet Estimate Adequate, Platelet Morphology Normal, Polychromasia 2 +, Hypochromasia 2+, Anisocytosis 1+, Spherocytes 2+, Sodium Level 143, Potassium Level 3.9, Chloride Level 105, Carbon Dioxide Level 30, Anion Gap 8, Blood Urea Nitrogen 51H, Creatinine 1.5H, Estimat Glomerular Filtration Rate 35.2, Glucose Level 140H, Uric Acid 10.5H, Calcium Level 8.6, Phosphorus Level 2.1L, Magnesium Level 2.0, Total Bilirubin 0.5, Aspartate Amino Transf (AST/SGOT ) 52H, Alanine Aminotransferase (ALT/SGPT) 109H, Alkaline Phosphatase 209H, C- Reactive Protein, Quantitative 3.1H, Pro-B-Type Natriuretic Peptide 4499H, Total Protein 5.2L, Albumin 2.2L, Globulin 3.0, Albumin/Globulin Ratio 0.7L Current Medications Medications (Trade) Dose Ordered Sig/Alex Route PRN Reason Start Time Stop Time Status Last Admin Dose Admin Acetaminophen (Tylenol) 650 mg Q6H PRN GT Mild Pain/Temp > 100.5 05/23/17 19:15 06/22/17 19:14 Acetaminophen/ Hydrocodone Bitart ([place] 5/325) 1 tab Q4H PRN GT Moderate Pain (Pain Scale 4-6) 05/23/17 19:15 05/30/17 19:14 05/27/17 16:07 Albuterol Sulfate (Proventil) 2.5 mg BIDRT N 05/28/17 10:00 06/02/17 09:59 Allopurinol (Allopurinol) 300 mg DAILY GT 05/27/17 09:00 06/24/17 08:59 05/28/17 09:10 Amiodarone HCl (Cordarone) 200 mg EVERY 12 HOURS GT 05/27/17 21:00 06/26/17 20:59 05/28/17 09:10 Atenolol (Tenormin) 12.5 mg DAILY GT 05/27/17 09:00 06/24/17 10:59 05/28/17 09:10 Bisacodyl (Dulcolax) 5 mg DAILYPRN PRN RECTAL Constipation 05/23/17 20:30 06/22/17 20:29 05/27/17 14:47 Cefepime HCl 500 mg/Dextrose 55 ml @ 110 mls/hr Q24H IV 05/28/17 21:00 06/04/17 20:59 Chlorhexidine Gluconate (Rubina-Hex 2%) 1 applic DAILY@2000 TOPIC 05/25/17 20:00 06/24/17 19:59 05/27/17 20:16 Dextrose (Dextrose 50%) STAT PRN IV Hypoglycemia 05/24/17 08:30 06/23/17 08:29 Epoetin Amadou (Procrit (for non ESRD use)) 10,000 units MON-WED-FRI SUBQ 05/25/17 21:00 06/24/17 20:59 05/25/17 21:00 Heparin Sodium (Porcine) (Heparin 5000 units/ml) 5,000 units EVERY 12 HOURS SUBQ 05/23/17 21:00 06/22/17 08:59 05/28/17 09:11 Insulin Aspart (NovoLOG) BEFORE MEALS AND HS SUBQ 05/24/17 11:30 06/23/17 11:29 05/28/17 06:38 Ipratropium [place] (Atrovent) 500 mcg BIDRT N 05/28/17 10:00 06/02/17 09:59 UNV Lactobacillus Acidophilus (Culturelle) 1 tab DAILY GT 05/24/17 09:00 06/21/17 08:59 05/28/17 09:11 Levothyroxine Sodium (Synthroid) 75 mcg ACBREAKFAST GT 05/24/17 06:30 06/21/17 06:29 05/28/17 05:48 Levothyroxine Sodium (Synthroid) 100 mcg ACBREAKFAST GT 05/24/17 06:30 06/21/17 06:29 05/28/17 05:48 Metronidazole (Flagyl) 500 mg Q8H GT 05/26/17 04:00 05/30/17 03:59 05/28/17 03:57 Midodrine (Pro-Amatine) 5 mg THREE TIMES A DAY ORAL 05/28/17 13:00 06/27/17 12:59 Pantoprazole (Protonix) 40 mg DAILY IVP 05/28/17 09:00 06/21/17 20:59 05/28/17 09:11 Patient Own Medication (Patient's Own Med) 1 ea QID BOTH EYES 05/23/17 21:00 06/22/17 20:59 05/28/17 09:12 Patient Own Medication (Patient's Own Med) 1 ea QID BOTH EYES 05/23/17 21:00 06/22/17 20:59 05/28/17 09:12 ANTIONETTE RODRIGUEZ May 28, 2017 11:04
--- NOTE | 2017-05-28 11:44 | General Progress Note ---
Assessment/Plan Assessment/Plan Assessment - Encephalopathy - Resp failure - Trach - dysphagia - PEG - abnormal LFT - ? decrease or hold Amio - edema / anasarca - abd distention due to ascites - no SBP on tap - UTI/PNA - leukocytosis - azotemia - pericardial effusion - marked thrombocytosis - poor Px Recommendations - continue TF - Check hepatitis serologies - will discuss with cardiology re Amio dose - hold off on GT change - check C Diff - will need periodic paracentesis - continue abx Subjective Allergies: Coded Allergies: OLANZAPINE (Verified Allergy, Severe, RESP FAILURE, 11/25/13) VANCOMYCIN (Verified Allergy, Severe, 11/25/13) PIPERACILLIN (Verified Allergy, Intermediate, HIVES, 11/25/13) TAZOBACTAM (Verified Allergy, Intermediate, HIVES, 11/25/13) Subjective d/w RN tolerating TF abd distended LFT remain high Objective Last 24 Hour Vital Signs Date Time Temp Pulse Resp B/P (MAP) Pulse Ox O2 Delivery O2 Flow Rate FiO2 05/28/17 10:06 60 16 Mechanical Ventilator 05/28/17 10:04 60 16 98 Mechanical Ventilator 05/28/17 10:00 62 15 114/68 99 Mechanical Ventilator 28 05/28/17 10:00 Mechanical Ventilator 15.0 28 05/28/17 09:15 64 16 28 05/28/17 09:00 63 16 125/65 98 Mechanical Ventilator 05/28/17 08:00 97.8 65 16 114/79 98 Mechanical Ventilator 05/28/17 08:00 69 05/28/17 08:00 28 05/28/17 07:31 67 16 28 05/28/17 07:00 62 16 140/70 99 Mechanical Ventilator 05/28/17 06:00 60 16 133/71 100 Mechanical Ventilator 28 05/28/17 05:40 Mechanical Ventilator 15.0 28 05/28/17 05:05 71 16 28 05/28/17 05:00 65 16 124/68 100 Mechanical Ventilator 28 05/28/17 04:00 28 05/28/17 04:00 97.6 62 16 111/67 100 Mechanical Ventilator 05/28/17 03:20 63 16 28 05/28/17 03:13 63 05/28/17 03:00 63 16 120/58 100 Mechanical Ventilator 28 05/28/17 02:00 61 16 122/66 100 Mechanical Ventilator 28 05/28/17 01:10 74 16 28 05/28/17 01:00 62 16 115/65 100 Mechanical Ventilator 28 05/28/17 00:00 59 05/28/17 00:00 97.6 59 16 125/65 100 Mechanical Ventilator 28 05/28/17 00:00 28 05/27/17 23:11 60 16 28 05/27/17 23:00 59 16 107/57 100 Mechanical Ventilator 28 05/27/17 22:00 59 16 109/82 100 Mechanical Ventilator 28 05/27/17 21:00 59 16 105/65 100 Mechanical Ventilator 28 05/27/17 21:00 71 16 28 05/27/17 20:00 28 05/27/17 20:00 97.6 60 16 104/60 100 Mechanical Ventilator 28 05/27/17 19:01 61 05/27/17 19:00 62 16 28 05/27/17 19:00 58 16 132/70 100 Mechanical Ventilator 28 05/27/17 18:00 16 114/70 100 Mechanical Ventilator 28 05/27/17 17:05 63 16 28 05/27/17 17:00 16 137/66 100 Mechanical Ventilator 28 05/27/17 16:00 98.3 16 152/107 100 Mechanical Ventilator 28 05/27/17 16:00 28 05/27/17 16:00 62 05/27/17 15:02 63 16 28 05/27/17 15:00 16 162/93 100 Mechanical Ventilator 28 05/27/17 14:00 98.3 63 16 160/71 100 Mechanical Ventilator 28 05/27/17 13:26 62 16 28 05/27/17 13:00 58 16 125/71 Mechanical Ventilator 28 05/27/17 12:30 58 16 110/66 100 Mechanical Ventilator 28 05/27/17 12:00 28 05/27/17 12:00 58 05/27/17 12:00 98.5 60 16 121/70 100 Mechanical Ventilator 28 Intake and Output 05/28/17 05/29/17 19:00 07:00 Intake Total 40 ml Output Total 2100 ml Balance -2060 ml Tube Feeding 40 ml Output Urine Total 0 ml Hemodialysis UF 2100 ml Laboratory Tests 05/28/17 04:50: White Blood Count 22.4*H, Red Blood Count 3.00L, Hemoglobin 9.3L, Hematocrit 26.0L, Mean Corpuscular Volume 87, Mean Corpuscular Hemoglobin 31.0, Mean Corpuscular Hemoglobin Concent 35.7, Red Cell Distribution Width 16.7H, Platelet Count 489H, Mean Platelet Volume 5.8L, Neutrophils (%) (Auto) , Lymphocytes (%) (Auto) , Monocytes (%) (Auto) , Eosinophils (%) (Auto) , Basophils (%) (Auto) , Differential Total Cells Counted 100, Neutrophils % ( Manual) 88H, Lymphocytes % (Manual) 7L, Monocytes % (Manual) 3, Eosinophils % ( Manual) 2, Basophils % (Manual) 0, Band Neutrophils 0, Nucleated Red Blood Cells 2, Platelet Estimate Adequate, Platelet Morphology Normal, Polychromasia 2 +, Hypochromasia 2+, Anisocytosis 1+, Spherocytes 2+, Sodium Level 143, Potassium Level 3.9, Chloride Level 105, Carbon Dioxide Level 30, Anion Gap 8, Blood Urea Nitrogen 51H, Creatinine 1.5H, Estimat Glomerular Filtration Rate 35.2, Glucose Level 140H, Uric Acid 10.5H, Calcium Level 8.6, Phosphorus Level 2.1L, Magnesium Level 2.0, Total Bilirubin 0.5, Aspartate Amino Transf (AST/SGOT ) 52H, Alanine Aminotransferase (ALT/SGPT) 109H, Alkaline Phosphatase 209H, C- Reactive Protein, Quantitative 3.1H, Pro-B-Type Natriuretic Peptide 4499H, Total Protein 5.2L, Albumin 2.2L, Globulin 3.0, Albumin/Globulin Ratio 0.7L Height (Feet): 5 Height (Inches): 0.00 Weight (Pounds): 206 Objective Obese WW NCAT supple Chest: coarse BS RRR obese, firm and distended abd, (+) GT (++) edema / anasarca OBS ZINAJILL STROUD May 28, 2017 11:44
--- NOTE | 2017-05-28 12:34 | Infectious Diseases Prog Note ---
"Assessment/Plan Assessment/Plan antibiotics : cefepime, flagyl A 1. klebsiella UTI s/p rx 2. leucocytosis improving 3. respiratory failure 4. DM 5. HTN 6. anoxic brain injury 7. pericardial effusion 8. serratia | pseudomonas pneumonia P 1. continue cefepime, flagyl 8 more days 2. will follow up cultures Subjective ROS Limited/Unobtainable: Yes Allergies: Coded Allergies: OLANZAPINE (Verified Allergy, Severe, RESP FAILURE, 11/25/13) VANCOMYCIN (Verified Allergy, Severe, 11/25/13) PIPERACILLIN (Verified Allergy, Intermediate, HIVES, 11/25/13) TAZOBACTAM (Verified Allergy, Intermediate, HIVES, 11/25/13) Objective Vital Signs Last 24 Hour Vital Signs Date Time Temp Pulse Resp B/P (MAP) Pulse Ox O2 Delivery O2 Flow Rate FiO2 05/28/17 10:06 60 16 Mechanical Ventilator 05/28/17 10:04 60 16 98 Mechanical Ventilator 05/28/17 10:00 62 15 114/68 99 Mechanical Ventilator 05/28/17 10:00 Mechanical Ventilator 15.0 05/28/17 09:15 64 16 28 05/28/17 09:00 63 16 125/65 98 Mechanical Ventilator 05/28/17 08:00 97.8 65 16 114/79 98 Mechanical Ventilator 05/28/17 08:00 69 05/28/17 08:00 28 05/28/17 07:31 67 16 28 05/28/17 07:00 62 16 140/70 99 Mechanical Ventilator 05/28/17 06:00 60 16 133/71 100 Mechanical Ventilator 05/28/17 05:40 Mechanical Ventilator 15.0 05/28/17 05:05 71 16 28 05/28/17 05:00 65 16 124/68 100 Mechanical Ventilator 05/28/17 04:00 28 05/28/17 04:00 97.6 62 16 111/67 100 Mechanical Ventilator 05/28/17 03:20 63 16 28 05/28/17 03:13 63 05/28/17 03:00 63 16 120/58 100 Mechanical Ventilator 05/28/17 02:00 61 16 122/66 100 Mechanical Ventilator 05/28/17 01:10 74 16 28 05/28/17 01:00 62 16 115/65 100 Mechanical Ventilator 28 05/28/17 00:00 59 05/28/17 00:00 97.6 59 16 125/65 100 Mechanical Ventilator 28 05/28/17 00:00 28 05/27/17 23:11 60 16 28 05/27/17 23:00 59 16 107/57 100 Mechanical Ventilator 28 05/27/17 22:00 59 16 109/82 100 Mechanical Ventilator 28 05/27/17 21:00 59 16 105/65 100 Mechanical Ventilator 28 05/27/17 21:00 71 16 28 05/27/17 20:00 28 05/27/17 20:00 97.6 60 16 104/60 100 Mechanical Ventilator 28 05/27/17 19:01 61 05/27/17 19:00 62 16 28 05/27/17 19:00 58 16 132/70 100 Mechanical Ventilator 28 05/27/17 18:00 16 114/70 100 Mechanical Ventilator 28 05/27/17 17:05 63 16 28 05/27/17 17:00 16 137/66 100 Mechanical Ventilator 28 05/27/17 16:00 98.3 16 152/107 100 Mechanical Ventilator 28 05/27/17 16:00 28 05/27/17 16:00 62 05/27/17 15:02 63 16 28 05/27/17 15:00 16 162/93 100 Mechanical Ventilator 28 05/27/17 14:00 98.3 63 16 160/71 100 Mechanical Ventilator 28 05/27/17 13:26 62 16 28 05/27/17 13:00 58 16 125/71 Mechanical Ventilator 28 Height (Feet): 5 Height (Inches): 0.00 Weight (Pounds): 206 HEENT: status post trach Respiratory/Chest: lungs clear Cardiovascular: normal rate, regular rhythm, no gallop/murmur Abdomen: soft, non tender, other - GT Extremities: other - + edema, right arm PICC Microbiology Date/Time Source Procedure Growth Status 05/25/17 16:00 Other Fluid Gram Stain - Final Resulted 05/25/17 16:00 Other Fluid Body Fluid Culture - Preliminary NO GROWTH AFTER 48 HOURS Resulted Laboratory Tests Test 05/28/17 04:50 White Blood Count 22.4 K/UL (4.8-10.8) *H Red Blood Count 3.00 M/UL (4.20-5.40) L Hemoglobin 9.3 G/DL (12.0-16.0) L Hematocrit 26.0 % (37.0-47.0) L Mean Corpuscular Volume 87 FL (80-99) Mean Corpuscular Hemoglobin 31.0 PG (27.0-31.0) Mean Corpuscular Hemoglobin Concent 35.7 G/DL (32.0-36.0) Red Cell Distribution Width 16.7 % (11.6-14.8) H Platelet Count 489 K/UL (150-450) H Mean Platelet Volume 5.8 FL (6.5-10.1) L Neutrophils (%) (Auto) % (45.0-75.0) Lymphocytes (%) (Auto) % (20.0-45.0) Monocytes (%) (Auto) % (1.0-10.0) Eosinophils (%) (Auto) % (0.0-3.0) Basophils (%) (Auto) % (0.0-2.0) Differential Total Cells Counted 100 Neutrophils % (Manual) 88 % (45-75) H Lymphocytes % (Manual) 7 % (20-45) L Monocytes % (Manual) 3 % (1-10) Eosinophils % (Manual) 2 % (0-3) Basophils % (Manual) 0 % (0-2) Band Neutrophils 0 % (0-8) Nucleated Red Blood Cells 2 /100 WBC Platelet Estimate Adequate Platelet Morphology Normal Polychromasia 2+ Hypochromasia 2+ Anisocytosis 1+ Spherocytes 2+ Sodium Level 143 MMOL/L (136-145) Potassium Level 3.9 MMOL/L (3.5-5.1) Chloride Level 105 MMOL/L (98-107) Carbon Dioxide Level 30 MMOL/L (21-32) Anion Gap 8 mmol/L (5-15) Blood Urea Nitrogen 51 mg/dL (7-18) H Creatinine 1.5 MG/DL (0.55-1.30) H Estimat Glomerular Filtration Rate 35.2 mL/min (>60) Glucose Level 140 MG/DL (74-106) H Uric Acid 10.5 MG/DL (2.6-7.2) H Calcium Level 8.6 MG/DL (8.5-10.1) Phosphorus Level 2.1 MG/DL (2.5-4.9) L Magnesium Level 2.0 MG/DL (1.8-2.4) Total Bilirubin 0.5 MG/DL (0.2-1.0) Aspartate Amino Transf (AST/SGOT) 52 U/L (15-37) H Alanine Aminotransferase (ALT/SGPT) 109 U/L (12-78) H Alkaline Phosphatase 209 U/L (46-116) H C-Reactive Protein, Quantitative 3.1 mg/dL (0.00-0.90) H Pro-B-Type Natriuretic Peptide 4499 pg/mL (0-125) H Total Protein 5.2 G/DL (6.4-8.2) L Albumin 2.2 G/DL (3.4-5.0) L Globulin 3.0 g/dL Albumin/Globulin Ratio 0.7 (1.0-2.7) L ERIKA DICKERSON May 28, 2017 12:34"
[2017-05-28] MEDS: Dyna-Hex 2% Top Sol 2oz TOPIC SCH (20:36)
[2017-05-28] MEDS ORDERED: Cefepime HCl 500 MG in D5W 55 ML IV SCH (21:00)
[2017-05-28] MEDS ORDERED: Epogen (for ESRD on dialysis) SUBQ SCH (21:00)
[2017-05-28] MEDS: Epogen (for non ESRD use) SUBQ SCH (22:09)
[2017-05-29] VITALS (18 sets, daily range): BP systolic 96–148; BP diastolic 53–81
[2017-05-29] MEDS: metroNIDAZOLE 500mg tab GT SCH ×2 (04:09→20:44)
[2017-05-29 05:08] LABS: BASOPHILS % (AUTO) 0.4 % (0.0-2.0); EOSINOPHILS % (AUTO) 4.2 % (0.0-3.0); LYMPHOCYTES % (AUTO) 10.3 % (20.0-45.0); MEAN CORPUSCULAR HEMOGLOBIN 30.4 PG (27.0-31.0); MEAN CORPUSCULAR VOLUME 92 FL (80-99); MEAN PLATELET VOLUME 6.1 FL (6.5-10.1); MONOCYTES % (AUTO) 4.2 % (1.0-10.0); PLATELET COUNT 391 K/UL (150-450); RED BLOOD COUNT 2.84 M/UL (4.20-5.40); RED CELL DISTRIBUTION WIDTH 23.3 % (11.6-14.8); WHITE BLOOD COUNT 17.8 K/UL (4.8-10.8)
[2017-05-29 05:09] LABS: ALANINE AMINOTRANSFERASE 92 U/L (12-78); ALBUMIN/GLOBULIN RATIO 0.7 (1.0-2.7); ANION GAP 6 mmol/L (5-15); ASPARTATE AMINO TRANSFERASE 61 U/L (15-37); CALCIUM 8.4 MG/DL (8.5-10.1); CARBON DIOXIDE 34 MMOL/L (21-32); CHLORIDE 106 MMOL/L (98-107); CREATININE 1.3 MG/DL (0.55-1.30); CRP QUANT 3.2 mg/dL (0.00-0.90); GLOMERULAR FILTRATION RATE 41.5 mL/min (>60); PHOSPHORUS 1.6 MG/DL (2.5-4.9); POTASSIUM 2.9 MMOL/L (3.5-5.1); SODIUM 146 MMOL/L (136-145); TOTAL PROTEIN 5.2 G/DL (6.4-8.2); URIC ACID 7.4 MG/DL (2.6-7.2)
[2017-05-29] MEDS: NovoLOG Insulin Flexpen SUBQ SCH ×2 (06:30→11:39)
--- NOTE | 2017-05-29 08:25 | General Progress Note ---
Assessment/Plan Problem List: (1) Sepsis ICD Codes: A41.9 - Sepsis, unspecified organism SNOMED: 97376144 (2) Pneumonia ICD Codes: J18.9 - Pneumonia, unspecified organism SNOMED: 104012726 (3) Acute renal failure ICD Codes: N17.9 - Acute kidney failure, unspecified SNOMED: 36205472 (4) Pericardial effusion ICD Codes: I31.3 - Pericardial effusion (noninflammatory) SNOMED: 861613848 (5) Tracheostomy malfunction ICD Codes: J95.03 - Malfunction of tracheostomy stoma SNOMED: 31487033 (6) UTI (urinary tract infection) ICD Codes: N39.0 - Urinary tract infection, site not specified SNOMED: 37749294, 286084314 Qualifiers: Qualified Codes: N30.01 - Acute cystitis with hematuria Status: stable Assessment/Plan HD iv abx monitor wbc- trending down vent support resp rx monitor renal fxn HD per renal poor prognosis. d/w caregiver. dnr try to transfer to tertiary hospital for pericardial drainage- no beds currently remains critical and guarded prognosis remains poor Subjective ROS Limited/Unobtainable: Yes Constitutional: Reports: malaise, weakness HEENT: Reports: no symptoms Cardiovascular: Reports: edema Respiratory: Reports: shortness of breath Gastrointestinal/Abdominal: Reports: difficulty swallowing Genitourinary: Reports: no symptoms Neurologic/Psychiatric: Reports: pre-existing deficit Endocrine: Reports: no symptoms Hematologic/Lymphatic: Reports: anemia Allergies: Coded Allergies: OLANZAPINE (Verified Allergy, Severe, RESP FAILURE, 11/25/13) VANCOMYCIN (Verified Allergy, Severe, 11/25/13) PIPERACILLIN (Verified Allergy, Intermediate, HIVES, 11/25/13) TAZOBACTAM (Verified Allergy, Intermediate, HIVES, 11/25/13) All Systems: reviewed and negative except above Subjective stable. no events. off amio drip. tolerating feeds. poor uop. on iv abx. wbc trending down. no beds at [facility] or [facility]. Objective Last 24 Hour Vital Signs Date Time Temp Pulse Resp B/P (MAP) Pulse Ox O2 Delivery O2 Flow Rate FiO2 05/29/17 08:00 28 05/29/17 08:00 97.7 61 16 117/63 100 Mechanical Ventilator 28 05/29/17 07:04 62 16 28 05/29/17 07:00 60 16 108/62 96 Mechanical Ventilator 28 05/29/17 06:00 61 16 104/56 96 Mechanical Ventilator 28 05/29/17 05:14 66 16 28 05/29/17 05:00 63 16 96/53 97 Mechanical Ventilator 28 05/29/17 04:00 98.6 66 16 114/61 99 Mechanical Ventilator 28 05/29/17 04:00 28 05/29/17 04:00 65 05/29/17 03:31 63 16 28 05/29/17 03:00 62 16 116/57 97 Mechanical Ventilator 28 05/29/17 02:00 66 16 146/74 97 Mechanical Ventilator 28 05/29/17 01:08 71 16 28 05/29/17 01:00 71 16 146/74 97 Mechanical Ventilator 28 05/29/17 00:00 98.1 68 16 143/71 99 Mechanical Ventilator 28 05/29/17 00:00 67 05/29/17 00:00 28 05/28/17 23:44 66 16 28 05/28/17 23:00 65 16 124/62 100 Mechanical Ventilator 28 05/28/17 22:00 62 16 136/74 100 Mechanical Ventilator 28 05/28/17 21:56 68 18 98 Mechanical Ventilator 28 05/28/17 21:46 63 16 98 Mechanical Ventilator 28 05/28/17 21:41 63 16 28 05/28/17 21:00 61 16 145/66 100 Mechanical Ventilator 28 05/28/17 20:00 98.7 61 16 148/116 99 Mechanical Ventilator 28 05/28/17 20:00 62 05/28/17 20:00 28 05/28/17 19:48 61 16 28 05/28/17 19:00 61 16 153/73 99 Mechanical Ventilator 28 05/28/17 18:00 69 16 130/68 100 Mechanical Ventilator 28 05/28/17 17:07 60 16 28 05/28/17 17:00 62 16 134/66 100 Mechanical Ventilator 28 05/28/17 16:00 60 05/28/17 16:00 60 16 135/71 100 Mechanical Ventilator 28 05/28/17 16:00 28 05/28/17 15:00 70 16 121/64 100 Mechanical Ventilator 28 05/28/17 14:57 60 16 28 05/28/17 14:00 68 16 143/71 100 Mechanical Ventilator 28 05/28/17 13:00 72 16 148/70 100 Mechanical Ventilator 28 05/28/17 12:39 63 16 28 05/28/17 12:00 66 16 145/97 100 Mechanical Ventilator 28 05/28/17 12:00 28 05/28/17 12:00 66 05/28/17 11:05 62 16 28 05/28/17 11:00 62 16 132/72 99 Mechanical Ventilator 28 05/28/17 10:06 60 16 Mechanical Ventilator 28 05/28/17 10:04 60 16 98 Mechanical Ventilator 05/28/17 10:00 62 15 114/68 99 Mechanical Ventilator 28 05/28/17 10:00 Mechanical Ventilator 15.0 28 05/28/17 09:15 64 16 28 05/28/17 09:00 63 16 125/65 98 Mechanical Ventilator 28 Intake and Output 05/29/17 05/30/17 19:00 07:00 Intake Total 40 ml Output Total 0 ml Balance 40 ml Tube Feeding 40 ml Output Urine Total 0 ml Laboratory Tests 05/29/17 04:00: White Blood Count 17.8H, Red Blood Count 2.84L, Hemoglobin 8.6L, Hematocrit 26.1L, Mean Corpuscular Volume 92, Mean Corpuscular Hemoglobin 30.4, Mean Corpuscular Hemoglobin Concent 33.0, Red Cell Distribution Width 23.3H, Platelet Count 391, Mean Platelet Volume 6.1L, Neutrophils (%) (Auto) 81.0H, Lymphocytes (%) (Auto) 10.3L, Monocytes (%) (Auto) 4.2, Eosinophils (%) (Auto) 4.2H, Basophils (%) (Auto) 0.4, Sodium Level 146H, Potassium Level 2.9L, Chloride Level 106, Carbon Dioxide Level 34H, Anion Gap 6, Blood Urea Nitrogen 38H, Creatinine 1.3, Estimat Glomerular Filtration Rate 41.5, Glucose Level 121H , Uric Acid 7.4H, Calcium Level 8.4L, Phosphorus Level 1.6L, Magnesium Level 2.0 , Total Bilirubin 0.7, Gamma Glutamyl Transpeptidase 395H, Aspartate Amino Transf (AST/SGOT) 61H, Alanine Aminotransferase (ALT/SGPT) 92H, Alkaline Phosphatase 182H, C-Reactive Protein, Quantitative 3.2H, Pro-B-Type Natriuretic Peptide 4583H, Total Protein 5.2L, Albumin 2.1L, Globulin 3.1, Albumin/Globulin Ratio 0.7L, Hepatitis A IgM Antibody [Pending], Hepatitis B Surface Antigen [ Pending], Hepatitis B Core IgM Antibody [Pending], Hepatitis C Antibody [Pending ] Height (Feet): 5 Height (Inches): 0.00 Weight (Pounds): 207 Objective General Appearance: WD/WN, alert Neck: supple Cardiovascular: regular rhythm Respiratory/Chest: lungs clear Abdomen: hypoactive bowel sounds, distended Edema: severe edema Neurologic: unresponsive OCHOA BISWAS May 29, 2017 08:25
--- NOTE | 2017-05-29 08:31 | Pulmonology Progress Note ---
Assessment/Plan Assessment/Plan IMPRESSION respiratory failure possible UTI sepsis ARF/CRF hyperkalemia pericardial effusion possible renal cyst vs mass hypertension (now with normal BP off meds) chronic encephalopathy hypothyroidism diabetes possible cirrhosis atrial fib, paroxysmal hyperuricemia pain possible ascites pericardial fluid collection PLAN ventilator management- as is monitor acid base for change- ABG still with high PIP -suction and respiratory manageemtn MR abdomen and ultrasound when stable monitor ascites and need for repeat tap sliding scale and monitor sugars- start low dose NPH monitor for residuals GT care GI/renal/ID/cards evaluation monitor clinically antibiotics noted- ID discussed WBC improved watch platelets- replace K HD- as able and hope to see further recovery medications/laboratory data/nursing notes/ICU care reviewed in detail note reviewed and edited care discussed with RN and RT ICU time spent 37 minutes Subjective ROS Limited/Unobtainable: Yes Allergies: Coded Allergies: OLANZAPINE (Verified Allergy, Severe, RESP FAILURE, 11/25/13) VANCOMYCIN (Verified Allergy, Severe, 11/25/13) PIPERACILLIN (Verified Allergy, Intermediate, HIVES, 11/25/13) TAZOBACTAM (Verified Allergy, Intermediate, HIVES, 11/25/13) Subjective overnight events reviewed labs noted rate remains controlled d/w cards and renal d/w sister at length minutes update given for transfer but stil no bed discharge summary on the chart Objective Last 24 Hour Vital Signs Date Time Temp Pulse Resp B/P (MAP) Pulse Ox O2 Delivery O2 Flow Rate FiO2 05/29/17 08:00 28 05/29/17 08:00 97.7 61 16 117/63 100 Mechanical Ventilator 05/29/17 07:04 62 16 28 05/29/17 07:00 60 16 108/62 96 Mechanical Ventilator 05/29/17 06:00 61 16 104/56 96 Mechanical Ventilator 05/29/17 05:14 66 16 28 05/29/17 05:00 63 16 96/53 97 Mechanical Ventilator 05/29/17 04:00 98.6 66 16 114/61 99 Mechanical Ventilator 05/29/17 04:00 28 05/29/17 04:00 65 05/29/17 03:31 63 16 28 05/29/17 03:00 62 16 116/57 97 Mechanical Ventilator 05/29/17 02:00 66 16 146/74 97 Mechanical Ventilator 05/29/17 01:08 71 16 28 05/29/17 01:00 71 16 146/74 97 Mechanical Ventilator 28 05/29/17 00:00 98.1 68 16 143/71 99 Mechanical Ventilator 28 05/29/17 00:00 67 05/29/17 00:00 28 05/28/17 23:44 66 16 28 05/28/17 23:00 65 16 124/62 100 Mechanical Ventilator 28 05/28/17 22:00 62 16 136/74 100 Mechanical Ventilator 28 05/28/17 21:56 68 18 98 Mechanical Ventilator 28 05/28/17 21:46 63 16 98 Mechanical Ventilator 28 05/28/17 21:41 63 16 28 05/28/17 21:00 61 16 145/66 100 Mechanical Ventilator 28 05/28/17 20:00 98.7 61 16 148/116 99 Mechanical Ventilator 28 05/28/17 20:00 62 05/28/17 20:00 28 05/28/17 19:48 61 16 28 05/28/17 19:00 61 16 153/73 99 Mechanical Ventilator 28 05/28/17 18:00 69 16 130/68 100 Mechanical Ventilator 28 05/28/17 17:07 60 16 28 05/28/17 17:00 62 16 134/66 100 Mechanical Ventilator 28 05/28/17 16:00 60 05/28/17 16:00 60 16 135/71 100 Mechanical Ventilator 28 05/28/17 16:00 28 05/28/17 15:00 70 16 121/64 100 Mechanical Ventilator 28 05/28/17 14:57 60 16 28 05/28/17 14:00 68 16 143/71 100 Mechanical Ventilator 28 05/28/17 13:00 72 16 148/70 100 Mechanical Ventilator 28 05/28/17 12:39 63 16 28 05/28/17 12:00 66 16 145/97 100 Mechanical Ventilator 28 05/28/17 12:00 28 05/28/17 12:00 66 05/28/17 11:05 62 16 28 05/28/17 11:00 62 16 132/72 99 Mechanical Ventilator 28 05/28/17 10:06 60 16 Mechanical Ventilator 28 05/28/17 10:04 60 16 98 Mechanical Ventilator 05/28/17 10:00 62 15 114/68 99 Mechanical Ventilator 28 05/28/17 10:00 Mechanical Ventilator 15.0 28 05/28/17 09:15 64 16 28 05/28/17 09:00 63 16 125/65 98 Mechanical Ventilator 28 Intake and Output 05/29/17 05/30/17 19:00 07:00 Intake Total 40 ml Output Total 0 ml Balance 40 ml Tube Feeding 40 ml Output Urine Total 0 ml Objective WDWN female chronically ill NAD coarse breath sounds bilaterally without rhonchi or wheeze PIP reviewed and higher [id number] without MRG NABS nontender no HSM; protuberant; GT- no CC some edema diffusely short neck unresponsive reviewed and edited Laboratory Tests 05/29/17 04:00: White Blood Count 17.8H, Red Blood Count 2.84L, Hemoglobin 8.6L, Hematocrit 26.1L, Mean Corpuscular Volume 92, Mean Corpuscular Hemoglobin 30.4, Mean Corpuscular Hemoglobin Concent 33.0, Red Cell Distribution Width 23.3H, Platelet Count 391, Mean Platelet Volume 6.1L, Neutrophils (%) (Auto) 81.0H, Lymphocytes (%) (Auto) 10.3L, Monocytes (%) (Auto) 4.2, Eosinophils (%) (Auto) 4.2H, Basophils (%) (Auto) 0.4, Sodium Level 146H, Potassium Level 2.9L, Chloride Level 106, Carbon Dioxide Level 34H, Anion Gap 6, Blood Urea Nitrogen 38H, Creatinine 1.3, Estimat Glomerular Filtration Rate 41.5, Glucose Level 121H , Uric Acid 7.4H, Calcium Level 8.4L, Phosphorus Level 1.6L, Magnesium Level 2.0 , Total Bilirubin 0.7, Gamma Glutamyl Transpeptidase 395H, Aspartate Amino Transf (AST/SGOT) 61H, Alanine Aminotransferase (ALT/SGPT) 92H, Alkaline Phosphatase 182H, C-Reactive Protein, Quantitative 3.2H, Pro-B-Type Natriuretic Peptide 4583H, Total Protein 5.2L, Albumin 2.1L, Globulin 3.1, Albumin/Globulin Ratio 0.7L, Hepatitis A IgM Antibody [Pending], Hepatitis B Surface Antigen [ Pending], Hepatitis B Core IgM Antibody [Pending], Hepatitis C Antibody [Pending ] Current Medications Medications (Trade) Dose Ordered Sig/Alex Route PRN Reason Start Time Stop Time Status Last Admin Dose Admin Acetaminophen (Tylenol) 650 mg Q6H PRN GT Mild Pain/Temp > 100.5 05/23/17 19:15 06/22/17 19:14 Acetaminophen/ Hydrocodone Bitart ([place] 5/325) 1 tab Q4H PRN GT Moderate Pain (Pain Scale 4-6) 05/23/17 19:15 05/30/17 19:14 05/27/17 16:07 Albuterol Sulfate (Proventil) 2.5 mg BIDRT HHN 05/28/17 10:00 06/02/17 09:59 05/28/17 21:33 Allopurinol (Allopurinol) 300 mg DAILY GT 05/27/17 09:00 06/24/17 08:59 05/28/17 09:10 Amiodarone HCl (Cordarone) 200 mg EVERY 12 HOURS GT 05/27/17 21:00 06/26/17 20:59 05/28/17 20:36 Atenolol (Tenormin) 12.5 mg DAILY GT 05/27/17 09:00 06/24/17 10:59 05/28/17 09:10 Bisacodyl (Dulcolax) 5 mg DAILYPRN PRN RECTAL Constipation 05/23/17 20:30 06/22/17 20:29 05/27/17 14:47 Cefepime HCl 500 mg/Dextrose 55 ml @ 110 mls/hr Q24H IV 05/28/17 21:00 06/04/17 20:59 05/28/17 20:37 Chlorhexidine Gluconate (Rubina-Hex 2%) 1 applic DAILY@2000 TOPIC 05/25/17 20:00 06/24/17 19:59 05/28/17 20:36 Dextrose (Dextrose 50%) STAT PRN IV Hypoglycemia 05/24/17 08:30 06/23/17 08:29 Epoetin Amadou (Procrit (for non ESRD use)) 10,000 units MON-WED-FRI SUBQ 05/25/17 21:00 06/24/17 20:59 05/28/17 22:09 Heparin Sodium (Porcine) (Heparin 5000 units/ml) 5,000 units EVERY 12 HOURS SUBQ 05/23/17 21:00 06/22/17 08:59 05/28/17 20:37 Insulin Aspart (NovoLOG) BEFORE MEALS AND HS SUBQ 05/24/17 11:30 06/23/17 11:29 05/28/17 16:57 Ipratropium [place] (Atrovent) 500 mcg BIDRT HHN 05/28/17 10:00 06/02/17 09:59 05/28/17 21:33 Lactobacillus Acidophilus (Culturelle) 1 tab DAILY GT 05/24/17 09:00 06/21/17 08:59 05/28/17 09:11 Levothyroxine Sodium (Synthroid) 75 mcg ACBREAKFAST GT 05/24/17 06:30 06/21/17 06:29 05/29/17 06:35 Levothyroxine Sodium (Synthroid) 100 mcg ACBREAKFAST GT 05/24/17 06:30 06/21/17 06:29 05/29/17 06:35 Metronidazole (Flagyl) 500 mg Q8H GT 05/26/17 04:00 05/30/17 03:59 05/29/17 04:09 Midodrine (Pro-Amatine) 5 mg THREE TIMES A DAY ORAL 05/28/17 13:00 06/27/17 12:59 05/28/17 18:21 Pantoprazole (Protonix) 40 mg DAILY IVP 05/28/17 09:00 06/21/17 20:59 05/28/17 09:11 Patient Own Medication (Patient's Own Med) 1 ea QID BOTH EYES 05/23/17 21:00 06/22/17 20:59 05/28/17 20:37 Patient Own Medication (Patient's Own Med) 1 ea QID BOTH EYES 05/23/17 21:00 06/22/17 20:59 05/28/17 20:43 Potassium Chloride (KCl 10% 20 mEq oral solution) 20 meq ONCE ONCE NG 05/29/17 08:30 05/29/17 08:31 ANTIONETTE REBOLLAR May 29, 2017 08:31
[2017-05-29] MEDS: Amiodarone 200mg tab GT SCH (08:54)
[2017-05-29] MEDS: Pantoprazole Inj IVP SCH (08:54)
[2017-05-29] MEDS: Lactobacillus-GG tablet GT SCH (08:55)
[2017-05-29] MEDS: Atenolol 12.5mg GT SCH (08:55)
[2017-05-29] MEDS: [UNRECOGNIZED DRUG - OTHER] BOTH EYES SCH ×3 (08:55→18:11)
[2017-05-29] MEDS: Heparin 5000 units/ml inj SUBQ SCH ×2 (08:57→20:46)
[2017-05-29] MEDS: SYSTANE BOTH EYES SCH ×2 (08:59→13:00)
[2017-05-29] MEDS ORDERED: KCl 10% 20 mEq/15ml liquid NG ONE (09:30)
[2017-05-29] MEDS: Albuterol ud Inhalation HHN SCH ×2 (09:30→22:57)
[2017-05-29] MEDS: Ipratropium 0.02% Inh Soln 2.5ml UD HHN SCH ×2 (09:30→22:57)
--- NOTE | 2017-05-29 10:57 | Infectious Diseases Prog Note ---
"Assessment/Plan Assessment/Plan antibiotics : cefepime, flagyl A 1. klebsiella UTI s/p rx 2. leucocytosis improving 3. respiratory failure 4. DM 5. HTN 6. anoxic brain injury 7. pericardial effusion 8. serratia | pseudomonas pneumonia P 1. continue cefepime, flagyl 7 more days 2. will follow up cultures Subjective ROS Limited/Unobtainable: Yes Allergies: Coded Allergies: OLANZAPINE (Verified Allergy, Severe, RESP FAILURE, 11/25/13) VANCOMYCIN (Verified Allergy, Severe, 11/25/13) PIPERACILLIN (Verified Allergy, Intermediate, HIVES, 11/25/13) TAZOBACTAM (Verified Allergy, Intermediate, HIVES, 11/25/13) Objective Vital Signs Last 24 Hour Vital Signs Date Time Temp Pulse Resp B/P (MAP) Pulse Ox O2 Delivery O2 Flow Rate FiO2 05/29/17 10:46 61 16 28 05/29/17 09:40 60 16 100 Mechanical Ventilator 28 05/29/17 09:30 61 16 100 Mechanical Ventilator 05/29/17 09:23 60 16 28 05/29/17 09:00 61 16 114/81 100 Mechanical Ventilator 05/29/17 08:00 28 05/29/17 08:00 97.7 61 16 117/63 100 Mechanical Ventilator 05/29/17 07:04 62 16 28 05/29/17 07:00 60 16 108/62 96 Mechanical Ventilator 05/29/17 06:00 61 16 104/56 96 Mechanical Ventilator 05/29/17 05:14 66 16 28 05/29/17 05:00 63 16 96/53 97 Mechanical Ventilator 05/29/17 04:00 98.6 66 16 114/61 99 Mechanical Ventilator 05/29/17 04:00 28 05/29/17 04:00 65 05/29/17 03:31 63 16 28 05/29/17 03:00 62 16 116/57 97 Mechanical Ventilator 05/29/17 02:00 66 16 146/74 97 Mechanical Ventilator 28 05/29/17 01:08 71 16 28 05/29/17 01:00 71 16 146/74 97 Mechanical Ventilator 28 05/29/17 00:00 98.1 68 16 143/71 99 Mechanical Ventilator 05/29/17 00:00 67 05/29/17 00:00 28 05/28/17 23:44 66 16 28 05/28/17 23:00 65 16 124/62 100 Mechanical Ventilator 28 05/28/17 22:00 62 16 136/74 100 Mechanical Ventilator 28 05/28/17 21:56 68 18 98 Mechanical Ventilator 28 05/28/17 21:46 63 16 98 Mechanical Ventilator 28 05/28/17 21:41 63 16 28 05/28/17 21:00 61 16 145/66 100 Mechanical Ventilator 28 05/28/17 20:00 98.7 61 16 148/116 99 Mechanical Ventilator 28 05/28/17 20:00 62 05/28/17 20:00 28 05/28/17 19:48 61 16 28 05/28/17 19:00 61 16 153/73 99 Mechanical Ventilator 28 05/28/17 18:00 69 16 130/68 100 Mechanical Ventilator 28 05/28/17 17:07 60 16 28 05/28/17 17:00 62 16 134/66 100 Mechanical Ventilator 28 05/28/17 16:00 60 05/28/17 16:00 60 16 135/71 100 Mechanical Ventilator 28 05/28/17 16:00 28 05/28/17 15:00 70 16 121/64 100 Mechanical Ventilator 28 05/28/17 14:57 60 16 28 05/28/17 14:00 68 16 143/71 100 Mechanical Ventilator 28 05/28/17 13:00 72 16 148/70 100 Mechanical Ventilator 28 05/28/17 12:39 63 16 28 05/28/17 12:00 66 16 145/97 100 Mechanical Ventilator 28 05/28/17 12:00 28 05/28/17 12:00 66 05/28/17 11:05 62 16 28 05/28/17 11:00 62 16 132/72 99 Mechanical Ventilator 28 Height (Feet): 5 Height (Inches): 0.00 Weight (Pounds): 207 HEENT: status post trach Respiratory/Chest: lungs clear Cardiovascular: normal rate, regular rhythm, no gallop/murmur Abdomen: soft, non tender, other - GT Extremities: other - + edema, right arm PICC Laboratory Tests Test 05/29/17 04:00 White Blood Count 17.8 K/UL (4.8-10.8) H Red Blood Count 2.84 M/UL (4.20-5.40) L Hemoglobin 8.6 G/DL (12.0-16.0) L Hematocrit 26.1 % (37.0-47.0) L Mean Corpuscular Volume 92 FL (80-99) Mean Corpuscular Hemoglobin 30.4 PG (27.0-31.0) Mean Corpuscular Hemoglobin Concent 33.0 G/DL (32.0-36.0) Red Cell Distribution Width 23.3 % (11.6-14.8) H Platelet Count 391 K/UL (150-450) Mean Platelet Volume 6.1 FL (6.5-10.1) L Neutrophils (%) (Auto) 81.0 % (45.0-75.0) H Lymphocytes (%) (Auto) 10.3 % (20.0-45.0) L Monocytes (%) (Auto) 4.2 % (1.0-10.0) Eosinophils (%) (Auto) 4.2 % (0.0-3.0) H Basophils (%) (Auto) 0.4 % (0.0-2.0) Sodium Level 146 MMOL/L (136-145) H Potassium Level 2.9 MMOL/L (3.5-5.1) L Chloride Level 106 MMOL/L (98-107) Carbon Dioxide Level 34 MMOL/L (21-32) H Anion Gap 6 mmol/L (5-15) Blood Urea Nitrogen 38 mg/dL (7-18) H Creatinine 1.3 MG/DL (0.55-1.30) Estimat Glomerular Filtration Rate 41.5 mL/min (>60) Glucose Level 121 MG/DL (74-106) H Uric Acid 7.4 MG/DL (2.6-7.2) H Calcium Level 8.4 MG/DL (8.5-10.1) L Phosphorus Level 1.6 MG/DL (2.5-4.9) L Magnesium Level 2.0 MG/DL (1.8-2.4) Total Bilirubin 0.7 MG/DL (0.2-1.0) Gamma Glutamyl Transpeptidase 395 U/L (5-85) H Aspartate Amino Transf (AST/SGOT) 61 U/L (15-37) H Alanine Aminotransferase (ALT/SGPT) 92 U/L (12-78) H Alkaline Phosphatase 182 U/L (46-116) H C-Reactive Protein, Quantitative 3.2 mg/dL (0.00-0.90) H Pro-B-Type Natriuretic Peptide 4583 pg/mL (0-125) H Total Protein 5.2 G/DL (6.4-8.2) L Albumin 2.1 G/DL (3.4-5.0) L Globulin 3.1 g/dL Albumin/Globulin Ratio 0.7 (1.0-2.7) L Hepatitis A IgM Antibody Pending Hepatitis B Surface Antigen Pending Hepatitis B Core IgM Antibody Pending Hepatitis C Antibody Pending ERIKA DICKERSON May 29, 2017 10:57"
[2017-05-29] MEDS ORDERED: Potassium Phosphate 20 MM in NS 275 ML IV ONE (11:30)
[2017-05-29 11:36] LABS: COMMENT,BODY FLUID PATHOLOGIST COMMENT
[2017-05-29] MEDS ORDERED: metroNIDAZOLE 500mg tab GT SCH (12:00)
--- NOTE | 2017-05-29 14:45 | Progress Note ---
DATE: 05/28/2017 CARDIOLOGY PROGRESS NOTE SUBJECTIVE: The patient was seen and evaluated. Case was discussed with her sister by telephone. The patient remained on ventilator support via tracheostomy still with high peak inspiratory pressures in the 50s. The patient still has ascites, abdominal distention, and less frequent episodes of rapid atrial fibrillation. OBJECTIVE: VITAL SIGNS: Blood pressure 140/70, pulse 62, respirations 16, and afebrile. LUNGS: Diminished breath sounds. Scattered rhonchi. HEART: Regular rhythm and rate. Normal S1 and S2. No appreciable murmur or rub, but respiratory sounds obscured exam. EXTREMITIES: Diffuse edema. LABORATORY DATA: White count 22.4 and hemoglobin 9.3. Sodium 143, potassium 3.9, bicarbonate 30, BUN 51, and creatinine 1.5. Pro-natriuretic peptide decreased to 4499. IMPRESSION: 1. Respiratory failure. 2. Healthcare-acquired pneumonia. 3. Sepsis with shock. 4. Paroxysmal atrial fibrillation. 5. Acute on chronic diastolic congestive heart failure. 6. Pericardial fluid accumulation. 7. Transaminitis, likely due to shock liver. 8. Hypophosphatemia. 9. Acute renal failure, status post hemodialysis with ultrafiltration today. PLAN: 1. Antimicrobials. 2. Ventilator support. 3. Follow up echocardiogram. 4. DVT prophylaxis. 5. Continue oral amiodarone for arrhythmia suppression. 6. Phosphorus replacement. 7. Remains critical and guarded, but improved. Ramo Toure M.D. DR: RICKIE JOB#: [id number] CC:
--- NOTE | 2017-05-29 14:57 | Nephrology Progress Note ---
Assessment/Plan Problem List: (1) Acute renal failure (2) Sepsis (3) UTI (urinary tract infection) (4) Tracheostomy dependence (5) Hypotension Assessment dialysed 05/26 and 850 cc removed- re do 05/28 and 05/30 Ascitic tap 2 liter removed 05/25 Urine out put remains low persistantly -. Acute renal failure due to ? sepsis , intravascular volume depletion, low BP... Cr rising- Urine out put down- -. Hypoalbuminemia: - Increase loss: NS - Decrease production: Nutritional -. Shock, sepsis, pneumonia, pericardial effusion. -. History of hypertension, now with low blood pressure. -. Hyperkalemia. improved -. Hyponatremia. improved -. Prerenal azotemia. -. Respiratory failure with tracheostomy. -. Anasarca with ascites. due to low Albumin -. HypoThyroidism . Plan K and Phos supplementas needed midodrine dialysis as needed and UF trial as BP remains stable STOP ALL NON FORMULARY SUPPLEMENTS- Diet to Nepro- DC Amphojel Antibiotics- DC Bicitra IV protonix Pulmonary support- Keep BP in check, midodrine when needed Monitor renal parameters- Avoid nephrotoxics 24 H urine for proteins pending per orders talked to SOREN connors health care facilities inspector and Dr De León 05/23 Long phone conversation with sister who requests transfer to [facility] 05/23 down on IV fluid discussed with PHIL Fernandez Subjective ROS Limited/Unobtainable: Yes Objective Objective Last 24 Hour Vital Signs Date Time Temp Pulse Resp B/P (MAP) Pulse Ox O2 Delivery O2 Flow Rate FiO2 05/29/17 14:00 63 16 133/66 97 Mechanical Ventilator 05/29/17 13:20 62 16 28 05/29/17 13:00 63 16 118/73 100 Mechanical Ventilator 05/29/17 12:00 28 05/29/17 12:00 98.8 62 16 128/63 96 Mechanical Ventilator 05/29/17 11:00 64 16 121/63 100 Mechanical Ventilator 05/29/17 10:46 61 16 28 05/29/17 10:00 66 16 112/62 100 Mechanical Ventilator 28 05/29/17 09:40 60 16 100 Mechanical Ventilator 28 05/29/17 09:30 61 16 100 Mechanical Ventilator 05/29/17 09:23 60 16 28 05/29/17 09:00 61 16 114/81 100 Mechanical Ventilator 28 05/29/17 08:00 28 05/29/17 08:00 97.7 61 16 117/63 100 Mechanical Ventilator 28 05/29/17 08:00 56 05/29/17 07:04 62 16 28 05/29/17 07:00 60 16 108/62 96 Mechanical Ventilator 28 05/29/17 06:00 61 16 104/56 96 Mechanical Ventilator 28 05/29/17 05:14 66 16 28 05/29/17 05:00 63 16 96/53 97 Mechanical Ventilator 28 05/29/17 04:00 98.6 66 16 114/61 99 Mechanical Ventilator 28 05/29/17 04:00 28 05/29/17 04:00 65 05/29/17 03:31 63 16 28 05/29/17 03:00 62 16 116/57 97 Mechanical Ventilator 28 05/29/17 02:00 66 16 146/74 97 Mechanical Ventilator 28 05/29/17 01:08 71 16 28 05/29/17 01:00 71 16 146/74 97 Mechanical Ventilator 28 05/29/17 00:00 98.1 68 16 143/71 99 Mechanical Ventilator 28 05/29/17 00:00 67 05/29/17 00:00 28 05/28/17 23:44 66 16 28 05/28/17 23:00 65 16 124/62 100 Mechanical Ventilator 28 05/28/17 22:00 62 16 136/74 100 Mechanical Ventilator 28 05/28/17 21:56 68 18 98 Mechanical Ventilator 28 05/28/17 21:46 63 16 98 Mechanical Ventilator 28 05/28/17 21:41 63 16 28 05/28/17 21:00 61 16 145/66 100 Mechanical Ventilator 28 05/28/17 20:00 98.7 61 16 148/116 99 Mechanical Ventilator 28 05/28/17 20:00 62 05/28/17 20:00 28 05/28/17 19:48 61 16 28 05/28/17 19:00 61 16 153/73 99 Mechanical Ventilator 28 05/28/17 18:00 69 16 130/68 100 Mechanical Ventilator 28 05/28/17 17:07 60 16 28 05/28/17 17:00 62 16 134/66 100 Mechanical Ventilator 28 05/28/17 16:00 60 05/28/17 16:00 60 16 135/71 100 Mechanical Ventilator 28 05/28/17 16:00 28 05/28/17 15:00 70 16 121/64 100 Mechanical Ventilator 28 05/28/17 14:57 60 16 28 Intake and Output 05/29/17 05/30/17 19:00 07:00 Intake Total 353.888 ml Output Total 15 ml Balance 338.888 ml Free Water 20 ml IV Total 93.888 ml Tube Feeding 240 ml Output Urine Total 15 ml # Bowel Movements 1 Laboratory Tests 05/29/17 04:00: White Blood Count 17.8H, Red Blood Count 2.84L, Hemoglobin 8.6L, Hematocrit 26.1L, Mean Corpuscular Volume 92, Mean Corpuscular Hemoglobin 30.4, Mean Corpuscular Hemoglobin Concent 33.0, Red Cell Distribution Width 23.3H, Platelet Count 391, Mean Platelet Volume 6.1L, Neutrophils (%) (Auto) 81.0H, Lymphocytes (%) (Auto) 10.3L, Monocytes (%) (Auto) 4.2, Eosinophils (%) (Auto) 4.2H, Basophils (%) (Auto) 0.4, Sodium Level 146H, Potassium Level 2.9L, Chloride Level 106, Carbon Dioxide Level 34H, Anion Gap 6, Blood Urea Nitrogen 38H, Creatinine 1.3, Estimat Glomerular Filtration Rate 41.5, Glucose Level 121H , Uric Acid 7.4H, Calcium Level 8.4L, Phosphorus Level 1.6L, Magnesium Level 2.0 , Total Bilirubin 0.7, Gamma Glutamyl Transpeptidase 395H, Aspartate Amino Transf (AST/SGOT) 61H, Alanine Aminotransferase (ALT/SGPT) 92H, Alkaline Phosphatase 182H, C-Reactive Protein, Quantitative 3.2H, Pro-B-Type Natriuretic Peptide 4583H, Total Protein 5.2L, Albumin 2.1L, Globulin 3.1, Albumin/Globulin Ratio 0.7L, Hepatitis A IgM Antibody [Pending], Hepatitis B Surface Antigen [ Pending], Hepatitis B Core IgM Antibody [Pending], Hepatitis C Antibody [Pending ] Height (Feet): 5 Height (Inches): 0.00 Weight (Pounds): 207 General Appearance: no apparent distress, lethargic Cardiovascular: normal rate Respiratory/Chest: decreased breath sounds Abdomen: distended Extremities: other - 4++ Objective no other changes FOULADIAN,QIANA May 29, 2017 14:57
--- NOTE | 2017-05-29 16:49 | General Progress Note ---
Assessment/Plan Assessment/Plan Assessment - Encephalopathy - Resp failure - Trach - dysphagia - PEG - abnormal LFT - ? decrease or hold Amio, ? due to passive congestion / elevated (R) sided pressure - edema / anasarca - abd distention due to ascites - no SBP on tap - UTI/PNA - leukocytosis - azotemia - pericardial effusion - marked thrombocytosis - poor Px Recommendations - continue TF - Check hepatitis serologies - f/u hepatitis serologies - hold off on GT change - check C Diff - will need periodic paracentesis - continue abx Subjective Allergies: Coded Allergies: OLANZAPINE (Verified Allergy, Severe, RESP FAILURE, 11/25/13) VANCOMYCIN (Verified Allergy, Severe, 11/25/13) PIPERACILLIN (Verified Allergy, Intermediate, HIVES, 11/25/13) TAZOBACTAM (Verified Allergy, Intermediate, HIVES, 11/25/13) Subjective d/w RN tolerating TF abd distended LFT remain high Objective Last 24 Hour Vital Signs Date Time Temp Pulse Resp B/P (MAP) Pulse Ox O2 Delivery O2 Flow Rate FiO2 05/29/17 16:35 65 16 28 05/29/17 16:00 28 05/29/17 16:00 64 05/29/17 16:00 98.3 72 16 142/72 100 Mechanical Ventilator 05/29/17 15:12 62 16 28 05/29/17 15:00 60 16 148/73 100 Mechanical Ventilator 28 05/29/17 14:00 63 16 133/66 97 Mechanical Ventilator 05/29/17 13:20 62 16 28 05/29/17 13:00 63 16 118/73 100 Mechanical Ventilator 05/29/17 12:00 28 05/29/17 12:00 64 05/29/17 12:00 98.8 62 16 128/63 96 Mechanical Ventilator 05/29/17 11:00 64 16 121/63 100 Mechanical Ventilator 05/29/17 10:46 61 16 28 05/29/17 10:00 66 16 112/62 100 Mechanical Ventilator 05/29/17 09:40 60 16 100 Mechanical Ventilator 05/29/17 09:30 61 16 100 Mechanical Ventilator 28 05/29/17 09:23 60 16 28 05/29/17 09:00 61 16 114/81 100 Mechanical Ventilator 05/29/17 08:00 28 05/29/17 08:00 97.7 61 16 117/63 100 Mechanical Ventilator 28 05/29/17 08:00 56 05/29/17 07:04 62 16 28 05/29/17 07:00 60 16 108/62 96 Mechanical Ventilator 28 05/29/17 06:00 61 16 104/56 96 Mechanical Ventilator 28 05/29/17 05:14 66 16 28 05/29/17 05:00 63 16 96/53 97 Mechanical Ventilator 28 05/29/17 04:00 98.6 66 16 114/61 99 Mechanical Ventilator 28 05/29/17 04:00 28 05/29/17 04:00 65 05/29/17 03:31 63 16 28 05/29/17 03:00 62 16 116/57 97 Mechanical Ventilator 28 05/29/17 02:00 66 16 146/74 97 Mechanical Ventilator 28 05/29/17 01:08 71 16 28 05/29/17 01:00 71 16 146/74 97 Mechanical Ventilator 28 05/29/17 00:00 98.1 68 16 143/71 99 Mechanical Ventilator 28 05/29/17 00:00 67 05/29/17 00:00 28 05/28/17 23:44 66 16 28 05/28/17 23:00 65 16 124/62 100 Mechanical Ventilator 28 05/28/17 22:00 62 16 136/74 100 Mechanical Ventilator 28 05/28/17 21:56 68 18 98 Mechanical Ventilator 28 05/28/17 21:46 63 16 98 Mechanical Ventilator 28 05/28/17 21:41 63 16 28 05/28/17 21:00 61 16 145/66 100 Mechanical Ventilator 28 05/28/17 20:00 98.7 61 16 148/116 99 Mechanical Ventilator 28 05/28/17 20:00 62 05/28/17 20:00 28 05/28/17 19:48 61 16 28 05/28/17 19:00 61 16 153/73 99 Mechanical Ventilator 28 05/28/17 18:00 69 16 130/68 100 Mechanical Ventilator 28 05/28/17 17:07 60 16 28 05/28/17 17:00 62 16 134/66 100 Mechanical Ventilator 28 Intake and Output 05/29/17 05/30/17 19:00 07:00 Intake Total 567.776 ml Output Total 35 ml Balance 532.776 ml Free Water 20 ml IV Total 187.776 ml Tube Feeding 360 ml Output Urine Total 35 ml # Bowel Movements 1 Laboratory Tests 05/29/17 04:00: White Blood Count 17.8H, Red Blood Count 2.84L, Hemoglobin 8.6L, Hematocrit 26.1L, Mean Corpuscular Volume 92, Mean Corpuscular Hemoglobin 30.4, Mean Corpuscular Hemoglobin Concent 33.0, Red Cell Distribution Width 23.3H, Platelet Count 391, Mean Platelet Volume 6.1L, Neutrophils (%) (Auto) 81.0H, Lymphocytes (%) (Auto) 10.3L, Monocytes (%) (Auto) 4.2, Eosinophils (%) (Auto) 4.2H, Basophils (%) (Auto) 0.4, Sodium Level 146H, Potassium Level 2.9L, Chloride Level 106, Carbon Dioxide Level 34H, Anion Gap 6, Blood Urea Nitrogen 38H, Creatinine 1.3, Estimat Glomerular Filtration Rate 41.5, Glucose Level 121H , Uric Acid 7.4H, Calcium Level 8.4L, Phosphorus Level 1.6L, Magnesium Level 2.0 , Total Bilirubin 0.7, Gamma Glutamyl Transpeptidase 395H, Aspartate Amino Transf (AST/SGOT) 61H, Alanine Aminotransferase (ALT/SGPT) 92H, Alkaline Phosphatase 182H, C-Reactive Protein, Quantitative 3.2H, Pro-B-Type Natriuretic Peptide 4583H, Total Protein 5.2L, Albumin 2.1L, Globulin 3.1, Albumin/Globulin Ratio 0.7L, Hepatitis A IgM Antibody [Pending], Hepatitis B Surface Antigen [ Pending], Hepatitis B Core IgM Antibody [Pending], Hepatitis C Antibody [Pending ] Height (Feet): 5 Height (Inches): 0.00 Weight (Pounds): 207 Objective Obese WW NCAT supple Chest: coarse BS RRR obese, firm and distended abd, (+) GT (++) edema / anasarca OBS ZINACHARUBRENNENJILL May 29, 2017 16:49
[2017-05-29] MEDS ORDERED: SYSTANE ULTRA BOTH EYES SCH (18:00)
[2017-05-29] MEDS ORDERED: [UNRECOGNIZED DRUG - OTHER] ORAL SCH (18:00)
[2017-05-29] MEDS ORDERED: NovoLOG Insulin Flexpen SUBQ SCH (18:00)
[2017-05-29] MEDS ORDERED: Albuterol ud Inhalation HHN SCH (19:00)
[2017-05-29] MEDS ORDERED: Ipratropium 0.02% Inh Soln 2.5ml UD HHN SCH (19:00)
[2017-05-29] MEDS: Dyna-Hex 2% Top Sol 2oz TOPIC SCH (20:43)
[2017-05-29] MEDS ORDERED: Cefepime HCl 500 MG in D5W 55 ML IV SCH (21:00)
[2017-05-29] MEDS ORDERED: Amiodarone 200mg tab GT SCH (21:00)
[2017-05-29] MEDS: SYSTANE ULTRA BOTH EYES SCH (21:58)
[2017-05-29] MEDS: [UNRECOGNIZED DRUG - OTHER] BOTH EYES SCH (21:58)
[2017-05-29] MEDS ORDERED: Norco 5mg/325mg tab GT PRN (23:15)
[2017-05-30] VITALS: BP 134/65
[2017-05-30] MEDS: NovoLOG Insulin Flexpen SUBQ SCH ×5 (00:58→23:55)
[2017-05-30] MEDS ORDERED: Acetaminophen 650mg/20.3ml GT PRN (01:15)
--- NOTE | 2017-05-30 01:30 | Progress Note ---
DATE: 05/29/2017 CARDIOLOGY PROGRESS NOTE SUBJECTIVE: The patient remains in the intensive care unit on ventilator support via tracheostomy. Monitored rhythm now sinus with no recurring atrial tachyarrhythmias or fibrillation. The patient remains critical with guarded prognosis. She continues to have elevated PIPs on the ventilator readings. OBJECTIVE: VITAL SIGNS: Blood pressure 130/63, pulse 69, and respirations 16. Afebrile. Anasarca. LUNGS: Diminished breath sounds. Few rhonchi. HEART: Regular rhythm and rate. Normal S1 and S2. ABDOMEN: G-tube intact. LABORATORY DATA: White count 17.8 and hemoglobin 8.6. BNP 4580. BUN 38, potassium 2.9, sodium 146, and creatinine 1.3. IMPRESSION: 1. Sepsis with shock, recovering. 2. Hypernatremia. 3. Dehydration. 4. Hypokalemia. 5. Acute renal failure, improved following hemodialysis. 6. Acute and chronic diastolic congestive heart failure. 7. Paroxysmal atrial fibrillation, now in sinus rhythm. 8. Anasarca. 9. Severe protein-calorie malnutrition. 10. Ventilator-dependent respiratory failure. 11. Pericardial fluid collection with no signs of tamponade. PLAN: 1. Antimicrobials. 2. Ventilator support. 3. Dialysis as needed. 4. Decrease dose of amiodarone. 5. Protein supplement by feeding tube. 6. DVT and stress ulcer prophylaxes. 7. No immediate plan for pericardial fluid drainage. Ramo Toure M.D. DR: LUISITO JOB#: [id number] CC:
[2017-05-30] MEDS: Albuterol ud Inhalation HHN SCH ×6 (03:31→23:00)
[2017-05-30] MEDS: Ipratropium 0.02% Inh Soln 2.5ml UD HHN SCH ×6 (03:31→23:00)
[2017-05-30] MEDS: metroNIDAZOLE 500mg tab GT SCH ×3 (03:57→20:00)
[2017-05-30 04:00] VITALS: BP 150/75
[2017-05-30 05:16] LABS: BASOPHILS % (AUTO) 0.3 % (0.0-2.0); EOSINOPHILS % (AUTO) 1.2 % (0.0-3.0); LYMPHOCYTES % (AUTO) 12.5 % (20.0-45.0); MEAN CORPUSCULAR HEMOGLOBIN 30.3 PG (27.0-31.0); MEAN CORPUSCULAR VOLUME 92 FL (80-99); MEAN PLATELET VOLUME 6.3 FL (6.5-10.1); MONOCYTES % (AUTO) 4.2 % (1.0-10.0); NEUTROPHILS % (AUTO) 81.8 % (45.0-75.0); PLATELET COUNT 341 K/UL (150-450); RED BLOOD COUNT 2.79 M/UL (4.20-5.40); RED CELL DISTRIBUTION WIDTH 25.3 % (11.6-14.8); WHITE BLOOD COUNT 15.4 K/UL (4.8-10.8)
[2017-05-30 05:35] LABS: ALANINE AMINOTRANSFERASE 76 U/L (12-78); ALBUMIN/GLOBULIN RATIO 0.6 (1.0-2.7); ANION GAP 9 mmol/L (5-15); ASPARTATE AMINO TRANSFERASE 44 U/L (15-37); CALCIUM 8.6 MG/DL (8.5-10.1); CARBON DIOXIDE 32 MMOL/L (21-32); CHLORIDE 105 MMOL/L (98-107); CREATININE 1.3 MG/DL (0.55-1.30); CRP QUANT 3.4 mg/dL (0.00-0.90); GLOMERULAR FILTRATION RATE 41.5 mL/min (>60); MAGNESIUM 1.9 MG/DL (1.8-2.4); PHOSPHORUS 2.6 MG/DL (2.5-4.9); POTASSIUM 4.1 MMOL/L (3.5-5.1); SODIUM 146 MMOL/L (136-145); TOTAL PROTEIN 5.2 G/DL (6.4-8.2); URIC ACID 7.6 MG/DL (2.6-7.2)
--- NOTE | 2017-05-30 07:36 | Pulmonology Progress Note ---
Assessment/Plan Assessment/Plan IMPRESSION respiratory failure possible UTI sepsis ARF/CRF hyperkalemia pericardial effusion possible renal cyst vs mass hypertension (now with normal BP off meds) chronic encephalopathy hypothyroidism diabetes possible cirrhosis atrial fib, paroxysmal hyperuricemia pain possible ascites pericardial fluid collection PLAN ventilator management- as is monitor acid base for change- ABG pending improved PIP down to 30s this am MR abdomen and ultrasound when stable monitor ascites and need for repeat tap sliding scale and monitor sugars- sugars controlled monitor for residuals GT care GI/renal/ID/cards evaluation monitor clinically antibiotics noted- ID discussed WBC improved HD- as able and hope to see further recovery and UO medications/laboratory data/nursing notes reviewed in detail note reviewed and edited care discussed with RN and RT Subjective Allergies: Coded Allergies: OLANZAPINE (Verified Allergy, Severe, RESP FAILURE, 11/25/13) VANCOMYCIN (Verified Allergy, Severe, 11/25/13) PIPERACILLIN (Verified Allergy, Intermediate, HIVES, 11/25/13) TAZOBACTAM (Verified Allergy, Intermediate, HIVES, 11/25/13) Subjective overnight events reviewed labs noted rate remains controlled d/w cards and renal d/w sister at length moved to SDU Objective Last 24 Hour Vital Signs Date Time Temp Pulse Resp B/P (MAP) Pulse Ox O2 Delivery O2 Flow Rate FiO2 05/30/17 04:40 73 16 28 05/30/17 04:00 71 05/30/17 04:00 98.2 62 16 150/75 100 Mechanical Ventilator 28 05/30/17 04:00 28 05/30/17 03:42 65 16 100 Mechanical Ventilator 28 05/30/17 03:32 66 16 100 Mechanical Ventilator 28 05/30/17 03:32 66 16 28 05/30/17 01:39 68 16 28 05/30/17 00:00 71 05/30/17 00:00 28 05/30/17 00:00 98.3 63 16 134/65 100 Mechanical Ventilator 28 05/29/17 23:04 67 16 100 Mechanical Ventilator 28 05/29/17 22:56 64 16 100 Mechanical Ventilator 28 05/29/17 22:55 64 16 28 05/29/17 21:12 65 16 28 05/29/17 20:00 28 05/29/17 20:00 70 05/29/17 19:35 63 16 100 Mechanical Ventilator 28 05/29/17 19:25 66 16 100 Mechanical Ventilator 28 05/29/17 19:22 67 16 28 05/29/17 17:46 66 16 28 05/29/17 17:00 69 16 130/63 99 Mechanical Ventilator 28 05/29/17 16:35 65 16 28 05/29/17 16:00 28 05/29/17 16:00 64 05/29/17 16:00 98.3 72 16 142/72 100 Mechanical Ventilator 28 05/29/17 15:12 62 16 28 05/29/17 15:00 60 16 148/73 100 Mechanical Ventilator 28 05/29/17 14:00 63 16 133/66 97 Mechanical Ventilator 28 05/29/17 13:20 62 16 28 05/29/17 13:00 63 16 118/73 100 Mechanical Ventilator 28 05/29/17 12:00 28 05/29/17 12:00 64 05/29/17 12:00 98.8 62 16 128/63 96 Mechanical Ventilator 28 05/29/17 11:00 64 16 121/63 100 Mechanical Ventilator 28 05/29/17 10:46 61 16 28 05/29/17 10:00 66 16 112/62 100 Mechanical Ventilator 28 05/29/17 09:40 60 16 100 Mechanical Ventilator 28 05/29/17 09:30 61 16 100 Mechanical Ventilator 28 05/29/17 09:23 60 16 28 05/29/17 09:00 61 16 114/81 100 Mechanical Ventilator 28 05/29/17 08:00 28 05/29/17 08:00 97.7 61 16 117/63 100 Mechanical Ventilator 28 05/29/17 08:00 56 Objective WDWN female chronically ill NAD coarse breath sounds bilaterally without rhonchi or wheeze PIP reviewed and higher [id number] without MRG NABS nontender no HSM; protuberant; GT- no CC some edema diffusely short neck unresponsive reviewed and edited Laboratory Tests 05/30/17 04:00: White Blood Count 15.4H, Red Blood Count 2.79L, Hemoglobin 8.4L, Hematocrit 25.6L, Mean Corpuscular Volume 92, Mean Corpuscular Hemoglobin 30.3, Mean Corpuscular Hemoglobin Concent 33.0, Red Cell Distribution Width 25.3H, Platelet Count 341, Mean Platelet Volume 6.3L, Neutrophils (%) (Auto) 81.8H, Lymphocytes (%) (Auto) 12.5L, Monocytes (%) (Auto) 4.2, Eosinophils (%) (Auto) 1.2, Basophils (%) (Auto) 0.3, Sodium Level 146H, Potassium Level 4.1, Chloride Level 105, Carbon Dioxide Level 32, Anion Gap 9, Blood Urea Nitrogen 45H, Creatinine 1.3, Estimat Glomerular Filtration Rate 41.5, Glucose Level 116H, Uric Acid 7.6H, Calcium Level 8.6, Phosphorus Level 2.6, Magnesium Level 1.9, Total Bilirubin 0.8, Gamma Glutamyl Transpeptidase 357H, Aspartate Amino Transf (AST/SGOT) 44H, Alanine Aminotransferase (ALT/SGPT) 76, Alkaline Phosphatase 156H, C-Reactive Protein, Quantitative 3.4H, Pro-B-Type Natriuretic Peptide 4540H, Total Protein 5.2L, Albumin 2.0L, Globulin 3.2, Albumin/Globulin Ratio 0.6L Current Medications Medications (Trade) Dose Ordered Sig/Alex Route PRN Reason Start Time Stop Time Status Last Admin Dose Admin Acetaminophen (Tylenol) 650 mg Q6H PRN GT Mild Pain/Temp > 100.5 05/30/17 01:15 06/22/17 19:14 Acetaminophen/ Hydrocodone Bitart (Frederic 5/325) 1 tab Q4H PRN GT Moderate Pain (Pain Scale 4-6) 05/29/17 23:15 05/30/17 19:14 Albuterol Sulfate (Proventil) 2.5 mg Q4HRT HHN 05/29/17 23:00 06/02/17 09:59 05/30/17 03:31 Allopurinol (Allopurinol) 300 mg DAILY GT 05/30/17 09:00 06/24/17 08:59 Amiodarone HCl (Cordarone) 200 mg DAILY GT 05/30/17 09:00 06/26/17 20:59 Atenolol (Tenormin) 12.5 mg DAILY GT 05/30/17 09:00 06/24/17 10:59 Bisacodyl (Dulcolax) 5 mg DAILYPRN PRN RECTAL Constipation 05/29/17 20:30 06/22/17 20:29 Cefepime HCl 500 mg/Dextrose 55 ml @ 110 mls/hr Q24H IV 05/29/17 21:00 06/05/17 23:59 05/29/17 21:58 Chlorhexidine Gluconate (Rubina-Hex 2%) 1 applic DAILY@2000 TOPIC 05/29/17 20:00 06/24/17 19:59 05/29/17 20:43 Dextrose (Dextrose 50%) STAT PRN IV Hypoglycemia 05/30/17 08:30 06/23/17 08:29 Epoetin Amadou (Procrit (for non ESRD use)) 10,000 units SUN-SUN-SUN SUBQ 05/30/17 21:00 06/24/17 20:59 Heparin Sodium (Porcine) (Heparin 5000 units/ml) 5,000 units EVERY 12 HOURS SUBQ 05/29/17 21:00 06/22/17 08:59 05/29/17 20:46 Insulin Aspart (NovoLOG) EVERY 6 HOURS SUBQ 05/30/17 00:00 06/23/17 11:29 05/30/17 06:29 Ipratropium [place] (Atrovent) 500 mcg Q4HRT HHN 05/29/17 23:00 06/02/17 09:59 05/30/17 03:31 Levothyroxine Sodium (Synthroid) 75 mcg ACBREAKFAST GT 05/30/17 06:30 06/21/17 06:29 05/30/17 06:27 Levothyroxine Sodium (Synthroid) 100 mcg ACBREAKFAST GT 05/30/17 06:30 06/21/17 06:29 05/30/17 06:27 Metronidazole (Flagyl) 500 mg Q8H GT 05/29/17 20:00 06/02/17 11:59 05/30/17 03:57 Midodrine (Pro-Amatine) 5 mg THREE TIMES A DAY ORAL 05/30/17 09:00 06/27/17 12:59 Pantoprazole (Protonix) 40 mg DAILY IVP 05/30/17 09:00 06/21/17 20:59 Patient Own Medication (Patient's Own Med) 1 ea BID ORAL 05/30/17 09:00 06/28/17 17:59 Patient Own Medication (Patient's Own Med) 1 ea QID BOTH EYES 05/29/17 21:00 06/28/17 17:59 05/29/17 21:58 Patient Own Medication (Patient's Own Med) 1 ea QID BOTH EYES 05/29/17 21:00 06/22/17 20:59 05/29/17 21:58 ANTIONETTE RODRIGUEZ May 30, 2017 07:36
[2017-05-30 08:00] VITALS: BP 154/74
[2017-05-30] MEDS ORDERED: Pantoprazole Inj IVP SCH (09:00)
[2017-05-30] MEDS: Atenolol 12.5mg GT SCH (09:00)
[2017-05-30] MEDS: SYSTANE ULTRA BOTH EYES SCH ×4 (09:14→20:30)
[2017-05-30] MEDS: [UNRECOGNIZED DRUG - OTHER] BOTH EYES SCH ×4 (09:14→20:31)
[2017-05-30] MEDS: Amiodarone 200mg tab GT SCH (09:15)
[2017-05-30] MEDS: [UNRECOGNIZED DRUG - OTHER] ORAL SCH ×2 (09:16→17:37)
[2017-05-30] MEDS: Heparin 5000 units/ml inj SUBQ SCH ×2 (09:18→20:32)
[2017-05-30] MEDS ORDERED: Sterile Water Irrig 1000ml IRRIG ONE (11:01)
[2017-05-30] MEDS ORDERED: NS 500ML ONE (11:01)
--- NOTE | 2017-05-30 11:28 | Nephrology Progress Note ---
Assessment/Plan Problem List: (1) Acute renal failure (2) Sepsis (3) UTI (urinary tract infection) (4) Tracheostomy dependence (5) Hypotension Assessment Dialysed 05/26 and 850 cc removed- re do 05/28 and 05/30 Ascitic tap 2 liter removed 05/25 Urine out put remains low persistantly -. Acute renal failure due to ? sepsis , intravascular volume depletion, low BP... Cr rising- Urine out put down- -. Hypoalbuminemia: - Increase loss: NS - Decrease production: Nutritional -. Shock, sepsis, pneumonia, pericardial effusion. -. History of hypertension, now with low blood pressure. -. Hyperkalemia. improved -. Hyponatremia. improved -. Prerenal azotemia. -. Respiratory failure with tracheostomy. -. Anasarca with ascites. due to low Albumin -. HypoThyroidism . Plan K and Phos supplementas needed midodrine dialysis as needed and UF trial as BP remains stable STOP ALL NON FORMULARY SUPPLEMENTS- Diet to Nepro- DC Amphojel Antibiotics- DC Bicitra IV protonix Pulmonary support- Keep BP in check, midodrine when needed Monitor renal parameters- Avoid nephrotoxics 24 H urine for proteins pending per orders talked to SOREN connors career development director and Dr De León 05/23 Long phone conversation with sister who requests transfer to [facility] 05/23 down on IV fluid discussed with PHIL Fernandez Subjective ROS Limited/Unobtainable: Yes Objective Objective Last 24 Hour Vital Signs Date Time Temp Pulse Resp B/P (MAP) Pulse Ox O2 Delivery O2 Flow Rate FiO2 05/30/17 11:24 62 16 100 Mechanical Ventilator 05/30/17 11:12 63 16 100 Mechanical Ventilator 28 05/30/17 11:11 63 16 28 05/30/17 09:09 62 16 99 Mechanical Ventilator 28 05/30/17 09:07 60 16 100 Mechanical Ventilator 28 05/30/17 09:06 60 16 28 05/30/17 08:00 28 05/30/17 08:00 98.1 60 16 154/74 99 Mechanical Ventilator 28 05/30/17 08:00 60 05/30/17 07:00 69 16 28 05/30/17 04:40 73 16 28 05/30/17 04:00 71 05/30/17 04:00 98.2 62 16 150/75 100 Mechanical Ventilator 28 05/30/17 04:00 28 05/30/17 03:42 65 16 100 Mechanical Ventilator 28 05/30/17 03:32 66 16 100 Mechanical Ventilator 28 05/30/17 03:32 66 16 28 05/30/17 01:39 68 16 28 05/30/17 00:00 71 05/30/17 00:00 28 05/30/17 00:00 98.3 63 16 134/65 100 Mechanical Ventilator 28 05/29/17 23:04 67 16 100 Mechanical Ventilator 28 05/29/17 22:56 64 16 100 Mechanical Ventilator 28 05/29/17 22:55 64 16 28 05/29/17 21:12 65 16 28 05/29/17 20:00 28 05/29/17 20:00 70 05/29/17 19:35 63 16 100 Mechanical Ventilator 28 05/29/17 19:25 66 16 100 Mechanical Ventilator 28 05/29/17 19:22 67 16 28 05/29/17 17:46 66 16 28 05/29/17 17:00 69 16 130/63 99 Mechanical Ventilator 28 05/29/17 16:35 65 16 28 05/29/17 16:00 28 05/29/17 16:00 64 05/29/17 16:00 98.3 72 16 142/72 100 Mechanical Ventilator 28 05/29/17 15:12 62 16 28 05/29/17 15:00 60 16 148/73 100 Mechanical Ventilator 28 05/29/17 14:00 63 16 133/66 97 Mechanical Ventilator 28 05/29/17 13:20 62 16 28 05/29/17 13:00 63 16 118/73 100 Mechanical Ventilator 28 05/29/17 12:00 28 05/29/17 12:00 64 05/29/17 12:00 98.8 62 16 128/63 96 Mechanical Ventilator 28 Laboratory Tests 05/30/17 04:00: White Blood Count 15.4H, Red Blood Count 2.79L, Hemoglobin 8.4L, Hematocrit 25.6L, Mean Corpuscular Volume 92, Mean Corpuscular Hemoglobin 30.3, Mean Corpuscular Hemoglobin Concent 33.0, Red Cell Distribution Width 25.3H, Platelet Count 341, Mean Platelet Volume 6.3L, Neutrophils (%) (Auto) 81.8H, Lymphocytes (%) (Auto) 12.5L, Monocytes (%) (Auto) 4.2, Eosinophils (%) (Auto) 1.2, Basophils (%) (Auto) 0.3, Sodium Level 146H, Potassium Level 4.1, Chloride Level 105, Carbon Dioxide Level 32, Anion Gap 9, Blood Urea Nitrogen 45H, Creatinine 1.3, Estimat Glomerular Filtration Rate 41.5, Glucose Level 116H, Uric Acid 7.6H, Calcium Level 8.6, Phosphorus Level 2.6, Magnesium Level 1.9, Total Bilirubin 0.8, Gamma Glutamyl Transpeptidase 357H, Aspartate Amino Transf (AST/SGOT) 44H, Alanine Aminotransferase (ALT/SGPT) 76, Alkaline Phosphatase 156H, C-Reactive Protein, Quantitative 3.4H, Pro-B-Type Natriuretic Peptide 4540H, Total Protein 5.2L, Albumin 2.0L, Globulin 3.2, Albumin/Globulin Ratio 0.6L Height (Feet): 5 Height (Inches): 0.00 Weight (Pounds): 220 General Appearance: no apparent distress Cardiovascular: regular rhythm Respiratory/Chest: decreased breath sounds Abdomen: distended Objective no other changes QIANA SALGADO May 30, 2017 11:28
[2017-05-30 12:00] VITALS: BP 156/79
--- NOTE | 2017-05-30 12:37 | Infectious Diseases Prog Note ---
"Assessment/Plan Assessment/Plan antibiotics : cefepime, flagyl A 1. klebsiella UTI s/p rx 2. leucocytosis improving 3. respiratory failure 4. DM 5. HTN 6. anoxic brain injury 7. pericardial effusion 8. serratia | pseudomonas pneumonia P 1. continue cefepime, flagyl 6 more days 2. will follow up cultures Subjective ROS Limited/Unobtainable: Yes Allergies: Coded Allergies: OLANZAPINE (Verified Allergy, Severe, RESP FAILURE, 11/25/13) VANCOMYCIN (Verified Allergy, Severe, 11/25/13) PIPERACILLIN (Verified Allergy, Intermediate, HIVES, 11/25/13) TAZOBACTAM (Verified Allergy, Intermediate, HIVES, 11/25/13) Objective Vital Signs Last 24 Hour Vital Signs Date Time Temp Pulse Resp B/P (MAP) Pulse Ox O2 Delivery O2 Flow Rate FiO2 05/30/17 12:00 63 05/30/17 12:00 28 05/30/17 11:24 62 16 100 Mechanical Ventilator 28 05/30/17 11:12 63 16 100 Mechanical Ventilator 28 05/30/17 11:11 63 16 28 05/30/17 09:09 62 16 99 Mechanical Ventilator 28 05/30/17 09:07 60 16 100 Mechanical Ventilator 28 05/30/17 09:06 60 16 28 05/30/17 08:00 28 05/30/17 08:00 98.1 60 16 154/74 99 Mechanical Ventilator 28 05/30/17 08:00 60 05/30/17 07:00 69 16 28 05/30/17 04:40 73 16 28 05/30/17 04:00 71 05/30/17 04:00 98.2 62 16 150/75 100 Mechanical Ventilator 28 05/30/17 04:00 28 05/30/17 03:42 65 16 100 Mechanical Ventilator 28 05/30/17 03:32 66 16 100 Mechanical Ventilator 28 05/30/17 03:32 66 16 28 05/30/17 01:39 68 16 28 05/30/17 00:00 71 05/30/17 00:00 28 05/30/17 00:00 98.3 63 16 134/65 100 Mechanical Ventilator 28 05/29/17 23:04 67 16 100 Mechanical Ventilator 28 05/29/17 22:56 64 16 100 Mechanical Ventilator 28 05/29/17 22:55 64 16 28 05/29/17 21:12 65 16 28 05/29/17 20:00 28 05/29/17 20:00 70 05/29/17 19:35 63 16 100 Mechanical Ventilator 28 05/29/17 19:25 66 16 100 Mechanical Ventilator 28 05/29/17 19:22 67 16 28 05/29/17 17:46 66 16 28 05/29/17 17:00 69 16 130/63 99 Mechanical Ventilator 28 05/29/17 16:35 65 16 28 05/29/17 16:00 28 05/29/17 16:00 64 05/29/17 16:00 98.3 72 16 142/72 100 Mechanical Ventilator 28 05/29/17 15:12 62 16 28 05/29/17 15:00 60 16 148/73 100 Mechanical Ventilator 28 05/29/17 14:00 63 16 133/66 97 Mechanical Ventilator 28 05/29/17 13:20 62 16 28 05/29/17 13:00 63 16 118/73 100 Mechanical Ventilator 28 Height (Feet): 5 Height (Inches): 0.00 Weight (Pounds): 220 HEENT: status post trach Respiratory/Chest: lungs clear Cardiovascular: normal rate, regular rhythm, no gallop/murmur Abdomen: soft, non tender, other - GT Extremities: other - + edema, right arm PICC Laboratory Tests Test 05/30/17 04:00 White Blood Count 15.4 K/UL (4.8-10.8) H Red Blood Count 2.79 M/UL (4.20-5.40) L Hemoglobin 8.4 G/DL (12.0-16.0) L Hematocrit 25.6 % (37.0-47.0) L Mean Corpuscular Volume 92 FL (80-99) Mean Corpuscular Hemoglobin 30.3 PG (27.0-31.0) Mean Corpuscular Hemoglobin Concent 33.0 G/DL (32.0-36.0) Red Cell Distribution Width 25.3 % (11.6-14.8) H Platelet Count 341 K/UL (150-450) Mean Platelet Volume 6.3 FL (6.5-10.1) L Neutrophils (%) (Auto) 81.8 % (45.0-75.0) H Lymphocytes (%) (Auto) 12.5 % (20.0-45.0) L Monocytes (%) (Auto) 4.2 % (1.0-10.0) Eosinophils (%) (Auto) 1.2 % (0.0-3.0) Basophils (%) (Auto) 0.3 % (0.0-2.0) Sodium Level 146 MMOL/L (136-145) H Potassium Level 4.1 MMOL/L (3.5-5.1) Chloride Level 105 MMOL/L (98-107) Carbon Dioxide Level 32 MMOL/L (21-32) Anion Gap 9 mmol/L (5-15) Blood Urea Nitrogen 45 mg/dL (7-18) H Creatinine 1.3 MG/DL (0.55-1.30) Estimat Glomerular Filtration Rate 41.5 mL/min (>60) Glucose Level 116 MG/DL (74-106) H Uric Acid 7.6 MG/DL (2.6-7.2) H Calcium Level 8.6 MG/DL (8.5-10.1) Phosphorus Level 2.6 MG/DL (2.5-4.9) Magnesium Level 1.9 MG/DL (1.8-2.4) Total Bilirubin 0.8 MG/DL (0.2-1.0) Gamma Glutamyl Transpeptidase 357 U/L (5-85) H Aspartate Amino Transf (AST/SGOT) 44 U/L (15-37) H Alanine Aminotransferase (ALT/SGPT) 76 U/L (12-78) Alkaline Phosphatase 156 U/L (46-116) H C-Reactive Protein, Quantitative 3.4 mg/dL (0.00-0.90) H Pro-B-Type Natriuretic Peptide 4540 pg/mL (0-125) H Total Protein 5.2 G/DL (6.4-8.2) L Albumin 2.0 G/DL (3.4-5.0) L Globulin 3.2 g/dL Albumin/Globulin Ratio 0.6 (1.0-2.7) L ERIKA DICKERSON May 30, 2017 12:37"
--- NOTE | 2017-05-30 15:27 | Diagnostic Imaging Report ---
Indication: SOB Technique: One view of the chest Comparison: 05/23/2017 Findings: Again demonstrated is apparent cardiomegaly, previously demonstrated to be due to pericardial fluid and abundant pericardial fat. This results in obscuration of the left hemidiaphragm. There is probably some retrocardiac atelectasis and possible consolidation as well. Tracheostomy remains. Right lung and pleural space remain clear. Right arm PICC, right jugular temporary dialysis catheter are again demonstrated. Findings are overall unchanged Impression: Unchanged, over 7 days, findings as above.
--- NOTE | 2017-05-30 15:59 | General Progress Note ---
Assessment/Plan Problem List: (1) Sepsis ICD Codes: A41.9 - Sepsis, unspecified organism SNOMED: 83278524 (2) Pneumonia ICD Codes: J18.9 - Pneumonia, unspecified organism SNOMED: 141573163 (3) Acute renal failure ICD Codes: N17.9 - Acute kidney failure, unspecified SNOMED: 35649890 (4) Pericardial effusion ICD Codes: I31.3 - Pericardial effusion (noninflammatory) SNOMED: 347872610 (5) Tracheostomy malfunction ICD Codes: J95.03 - Malfunction of tracheostomy stoma SNOMED: 48210436 (6) UTI (urinary tract infection) ICD Codes: N39.0 - Urinary tract infection, site not specified SNOMED: 41245430, 874614841 Qualifiers: Qualified Codes: N30.01 - Acute cystitis with hematuria Status: stable, progressing Assessment/Plan HD iv abx monitor wbc- trending down vent support resp rx monitor renal fxn HD per renal poor prognosis. d/w caregiver. dnr try to transfer to tertiary hospital for pericardial drainage- no beds currently remains critical and guarded prognosis remains poor Subjective ROS Limited/Unobtainable: Yes Constitutional: Reports: malaise, weakness HEENT: Reports: no symptoms Cardiovascular: Reports: edema Respiratory: Reports: no symptoms Gastrointestinal/Abdominal: Reports: abdomen distended Genitourinary: Reports: no symptoms Neurologic/Psychiatric: Reports: no symptoms Endocrine: Reports: no symptoms Hematologic/Lymphatic: Reports: anemia Allergies: Coded Allergies: OLANZAPINE (Verified Allergy, Severe, RESP FAILURE, 11/25/13) VANCOMYCIN (Verified Allergy, Severe, 11/25/13) PIPERACILLIN (Verified Allergy, Intermediate, HIVES, 11/25/13) TAZOBACTAM (Verified Allergy, Intermediate, HIVES, 11/25/13) All Systems: reviewed and negative except above Subjective stable. no events. off amio drip. no svt. HR well controlled. tolerating feeds. poor uop. on iv abx. wbc trending down. LFTS also trending down. no beds at [facility] or [facility]. Objective Last 24 Hour Vital Signs Date Time Temp Pulse Resp B/P (MAP) Pulse Ox O2 Delivery O2 Flow Rate FiO2 05/30/17 14:50 63 16 99 Mechanical Ventilator 28 05/30/17 14:43 61 16 99 Mechanical Ventilator 28 05/30/17 14:40 61 16 28 05/30/17 13:01 65 16 28 05/30/17 12:50 Mechanical Ventilator 15.0 28 05/30/17 12:00 63 05/30/17 12:00 98.5 64 16 156/79 99 Mechanical Ventilator 28 05/30/17 12:00 28 05/30/17 11:24 62 16 100 Mechanical Ventilator 28 05/30/17 11:12 63 16 100 Mechanical Ventilator 28 05/30/17 11:11 63 16 28 05/30/17 09:09 62 16 99 Mechanical Ventilator 28 05/30/17 09:07 60 16 100 Mechanical Ventilator 28 05/30/17 09:06 60 16 28 05/30/17 08:00 28 05/30/17 08:00 98.1 60 16 154/74 99 Mechanical Ventilator 28 05/30/17 08:00 60 05/30/17 07:00 69 16 28 05/30/17 04:40 73 16 28 05/30/17 04:00 71 05/30/17 04:00 98.2 62 16 150/75 100 Mechanical Ventilator 28 05/30/17 04:00 28 05/30/17 03:42 65 16 100 Mechanical Ventilator 28 05/30/17 03:32 66 16 100 Mechanical Ventilator 28 05/30/17 03:32 66 16 28 05/30/17 01:39 68 16 28 05/30/17 00:00 71 05/30/17 00:00 28 05/30/17 00:00 98.3 63 16 134/65 100 Mechanical Ventilator 28 05/29/17 23:04 67 16 100 Mechanical Ventilator 28 05/29/17 22:56 64 16 100 Mechanical Ventilator 28 05/29/17 22:55 64 16 28 05/29/17 21:12 65 16 28 05/29/17 20:00 28 05/29/17 20:00 70 05/29/17 19:35 63 16 100 Mechanical Ventilator 28 05/29/17 19:25 66 16 100 Mechanical Ventilator 28 05/29/17 19:22 67 16 28 05/29/17 17:46 66 16 28 05/29/17 17:00 69 16 130/63 99 Mechanical Ventilator 28 05/29/17 16:35 65 16 28 05/29/17 16:00 28 05/29/17 16:00 64 12/5/17 16:00 98.3 72 16 142/72 100 Mechanical Ventilator 28 Intake and Output 05/30/17 05/31/17 19:00 07:00 Intake Total 300 ml Balance 300 ml Tube Feeding 300 ml # Bowel Movements 1 Laboratory Tests 05/30/17 04:00: White Blood Count 15.4H, Red Blood Count 2.79L, Hemoglobin 8.4L, Hematocrit 25.6L, Mean Corpuscular Volume 92, Mean Corpuscular Hemoglobin 30.3, Mean Corpuscular Hemoglobin Concent 33.0, Red Cell Distribution Width 25.3H, Platelet Count 341, Mean Platelet Volume 6.3L, Neutrophils (%) (Auto) 81.8H, Lymphocytes (%) (Auto) 12.5L, Monocytes (%) (Auto) 4.2, Eosinophils (%) (Auto) 1.2, Basophils (%) (Auto) 0.3, Sodium Level 146H, Potassium Level 4.1, Chloride Level 105, Carbon Dioxide Level 32, Anion Gap 9, Blood Urea Nitrogen 45H, Creatinine 1.3, Estimat Glomerular Filtration Rate 41.5, Glucose Level 116H, Uric Acid 7.6H, Calcium Level 8.6, Phosphorus Level 2.6, Magnesium Level 1.9, Total Bilirubin 0.8, Gamma Glutamyl Transpeptidase 357H, Aspartate Amino Transf (AST/SGOT) 44H, Alanine Aminotransferase (ALT/SGPT) 76, Alkaline Phosphatase 156H, C-Reactive Protein, Quantitative 3.4H, Pro-B-Type Natriuretic Peptide 4540H, Total Protein 5.2L, Albumin 2.0L, Globulin 3.2, Albumin/Globulin Ratio 0.6L Height (Feet): 5 Height (Inches): 0.00 Weight (Pounds): 220 Objective General Appearance: WD/WN, alert Neck: supple Cardiovascular: regular rhythm Respiratory/Chest: lungs clear Abdomen: hypoactive bowel sounds, distended Edema: severe edema Neurologic: unresponsive OCHOA BISWAS May 30, 2017 15:59
[2017-05-30 16:00] VITALS: BP 129/69
[2017-05-30 20:00] VITALS: BP 126/70
[2017-05-30] MEDS: Dyna-Hex 2% Top Sol 2oz TOPIC SCH (20:00)
[2017-05-30] MEDS: Cefepime HCl 2 GM in D5W 55 ML IV SCH (20:30)
[2017-05-30] MEDS: Epogen (for non ESRD use) SUBQ SCH (20:30)
--- NOTE | 2017-05-30 22:23 | General Progress Note ---
Assessment/Plan Assessment/Plan Assessment - Encephalopathy - Resp failure - Trach - dysphagia - PEG - abnormal LFT--> Improving - edema / anasarca - abd distention due to ascites - no SBP on tap - UTI/PNA - leukocytosis --> Improving - azotemia - pericardial effusion - marked thrombocytosis - poor Px Recommendations - continue TF - f/u hepatitis serologies --> Negative - hold off on GT change - check C Diff - will need periodic paracentesis - continue abx Subjective Allergies: Coded Allergies: OLANZAPINE (Verified Allergy, Severe, RESP FAILURE, 11/25/13) VANCOMYCIN (Verified Allergy, Severe, 11/25/13) PIPERACILLIN (Verified Allergy, Intermediate, HIVES, 11/25/13) TAZOBACTAM (Verified Allergy, Intermediate, HIVES, 11/25/13) Subjective d/w RN tolerating TF abd less distended LFT improving WBC improving Objective Last 24 Hour Vital Signs Date Time Temp Pulse Resp B/P (MAP) Pulse Ox O2 Delivery O2 Flow Rate FiO2 05/30/17 20:07 65 19 94 Mechanical Ventilator 15.0 28 05/30/17 20:04 28 05/30/17 20:00 28 05/30/17 20:00 64 05/30/17 20:00 99.5 65 19 126/70 94 Mechanical Ventilator 28 05/30/17 19:52 64 16 95 Mechanical Ventilator 15.0 28 05/30/17 19:47 64 16 28 05/30/17 17:10 Mechanical Ventilator 15.0 28 05/30/17 16:37 70 16 28 05/30/17 16:00 28 05/30/17 16:00 98.1 66 17 129/69 99 Mechanical Ventilator 28 05/30/17 16:00 66 05/30/17 14:50 63 16 99 Mechanical Ventilator 28 05/30/17 14:43 61 16 99 Mechanical Ventilator 28 05/30/17 14:40 61 16 28 05/30/17 13:01 65 16 28 05/30/17 12:50 Mechanical Ventilator 15.0 28 05/30/17 12:00 63 05/30/17 12:00 98.5 64 16 156/79 99 Mechanical Ventilator 28 05/30/17 12:00 28 05/30/17 11:24 62 16 100 Mechanical Ventilator 28 05/30/17 11:12 63 16 100 Mechanical Ventilator 28 05/30/17 11:11 63 16 28 05/30/17 09:09 62 16 99 Mechanical Ventilator 28 05/30/17 09:07 60 16 100 Mechanical Ventilator 28 05/30/17 09:06 60 16 28 05/30/17 08:00 28 05/30/17 08:00 98.1 60 16 154/74 99 Mechanical Ventilator 28 05/30/17 08:00 60 05/30/17 07:00 69 16 28 05/30/17 04:40 73 16 28 05/30/17 04:00 71 05/30/17 04:00 98.2 62 16 150/75 100 Mechanical Ventilator 28 05/30/17 04:00 28 05/30/17 03:42 65 16 100 Mechanical Ventilator 28 05/30/17 03:32 66 16 100 Mechanical Ventilator 28 05/30/17 03:32 66 16 28 05/30/17 01:39 68 16 28 05/30/17 00:00 71 05/30/17 00:00 28 05/30/17 00:00 98.3 63 16 134/65 100 Mechanical Ventilator 28 05/29/17 23:04 67 16 100 Mechanical Ventilator 28 05/29/17 22:56 64 16 100 Mechanical Ventilator 28 05/29/17 22:55 64 16 28 Intake and Output 05/30/17 05/31/17 19:00 07:00 Intake Total 420 ml Output Total 2300 ml Balance -1880 ml Tube Feeding 420 ml Output Urine Total 200 ml Hemodialysis UF 2100 ml # Bowel Movements 1 Laboratory Tests 05/30/17 04:00: White Blood Count 15.4H, Red Blood Count 2.79L, Hemoglobin 8.4L, Hematocrit 25.6L, Mean Corpuscular Volume 92, Mean Corpuscular Hemoglobin 30.3, Mean Corpuscular Hemoglobin Concent 33.0, Red Cell Distribution Width 25.3H, Platelet Count 341, Mean Platelet Volume 6.3L, Neutrophils (%) (Auto) 81.8H, Lymphocytes (%) (Auto) 12.5L, Monocytes (%) (Auto) 4.2, Eosinophils (%) (Auto) 1.2, Basophils (%) (Auto) 0.3, Sodium Level 146H, Potassium Level 4.1, Chloride Level 105, Carbon Dioxide Level 32, Anion Gap 9, Blood Urea Nitrogen 45H, Creatinine 1.3, Estimat Glomerular Filtration Rate 41.5, Glucose Level 116H, Uric Acid 7.6H, Calcium Level 8.6, Phosphorus Level 2.6, Magnesium Level 1.9, Total Bilirubin 0.8, Gamma Glutamyl Transpeptidase 357H, Aspartate Amino Transf (AST/SGOT) 44H, Alanine Aminotransferase (ALT/SGPT) 76, Alkaline Phosphatase 156H, C-Reactive Protein, Quantitative 3.4H, Pro-B-Type Natriuretic Peptide 4540H, Total Protein 5.2L, Albumin 2.0L, Globulin 3.2, Albumin/Globulin Ratio 0.6L Height (Feet): 5 Height (Inches): 0.00 Weight (Pounds): 220 Objective Obese WW NCAT supple Chest: coarse BS RRR obese, firm and distended abd, (+) GT (++) edema / anasarca OBS JILL WHITNEY May 30, 2017 22:23
[2017-05-31] VITALS (7 sets, daily range): BP systolic 108–153; BP diastolic 65–80
--- NOTE | 2017-05-31 01:30 | Progress Note ---
DATE: 05/30/2017 CARDIOLOGY PROGRESS NOTE SUBJECTIVE: The patient was seen and evaluated and status discussed with her sister and caregivers at the bedside. The patient's monitored rhythm has remained sinus for several days with no recurring atrial fibrillation. She is on oral amiodarone. Blood pressure parameters remained stable. She is afebrile. She continues on ventilator support via tracheostomy. OBJECTIVE: VITAL SIGNS: Blood pressure is 156/79, pulse 64, and respiratory rate 16. No fever. LUNGS: Few rhonchi. HEART: Regular rhythm and rate. Normal S1 and S2. ABDOMEN: Obese. EXTREMITIES: With dependent edema, 2+. LABORATORY DATA: White count 15.4 and hemoglobin 8.4. Sodium 146, potassium 4.1, BUN 45, and creatinine 1.3. Pro-natriuretic peptide 4500, unchanged. IMPRESSION: 1. Sepsis with recovered shock. 2. Leukocytosis, recovering. 3. Healthcare-acquired pneumonia. 4. Pericardial fluid collection with no signs of tamponade. 5. Acute on chronic diastolic congestive heart failure. 6. Paroxysmal atrial fibrillation. PLAN: 1. Repeat echocardiogram to reassess pericardial fluid status. 2. Antimicrobials. 3. Respiratory hygiene. 4. Ventilator support via tracheostomy. 5. Reassess long-term use of amiodarone in the setting. The patient's sister is concerned regarding side effects and toxicity. Ramo Toure M.D. DR: Aniceto JOB#: [id number] CC:
[2017-05-31] MEDS: Albuterol ud Inhalation HHN SCH ×6 (02:59→23:23)
[2017-05-31] MEDS: Ipratropium 0.02% Inh Soln 2.5ml UD HHN SCH ×6 (02:59→23:23)
[2017-05-31] MEDS: metroNIDAZOLE 500mg tab GT SCH ×3 (03:48→20:47)
[2017-05-31] MEDS: NovoLOG Insulin Flexpen SUBQ SCH ×4 (06:24→23:56)
--- NOTE | 2017-05-31 07:51 | Infectious Diseases Prog Note ---
Assessment/Plan Assessment/Plan A 1. klebsiella UTI 2. leucocytosis improving 3. respiratory failure 4. DM 5. HPN 6. anoxic brain injury 7. Anasarca 8. Pericardial effusion 9. ascites P 1. Continue Cefepime & Flagyl X 5 days 2. will f/u cultures Subjective ROS Limited/Unobtainable: Yes Allergies: Coded Allergies: OLANZAPINE (Verified Allergy, Severe, RESP FAILURE, 11/25/13) VANCOMYCIN (Verified Allergy, Severe, 11/25/13) PIPERACILLIN (Verified Allergy, Intermediate, HIVES, 11/25/13) TAZOBACTAM (Verified Allergy, Intermediate, HIVES, 11/25/13) Objective Vital Signs Last 24 Hour Vital Signs Date Time Temp Pulse Resp B/P (MAP) Pulse Ox O2 Delivery O2 Flow Rate FiO2 05/31/17 07:21 73 16 28 05/31/17 05:16 73 16 28 05/31/17 04:00 28 05/31/17 04:00 99.4 74 18 148/78 97 Mechanical Ventilator 28 05/31/17 04:00 74 05/31/17 03:12 68 16 97 Mechanical Ventilator 15.0 28 05/31/17 03:00 28 05/31/17 02:57 68 16 97 Mechanical Ventilator 15.0 28 05/31/17 02:55 67 16 28 05/31/17 01:35 70 16 28 05/31/17 00:00 99.0 70 20 145/65 96 Mechanical Ventilator 28 05/31/17 00:00 70 05/30/17 23:15 68 16 28 05/30/17 23:00 Mechanical Ventilator 05/30/17 23:00 Mechanical Ventilator 05/30/17 21:12 66 16 28 05/30/17 20:07 65 19 94 Mechanical Ventilator 15.0 28 05/30/17 20:04 28 05/30/17 20:00 28 05/30/17 20:00 64 05/30/17 20:00 99.5 65 19 126/70 94 Mechanical Ventilator 28 05/30/17 19:52 64 16 95 Mechanical Ventilator 15.0 28 05/30/17 19:47 64 16 28 05/30/17 17:10 Mechanical Ventilator 15.0 28 05/30/17 16:37 70 16 28 05/30/17 16:00 28 05/30/17 16:00 98.1 66 17 129/69 99 Mechanical Ventilator 28 05/30/17 16:00 66 05/30/17 14:50 63 16 99 Mechanical Ventilator 28 05/30/17 14:43 61 16 99 Mechanical Ventilator 28 05/30/17 14:40 61 16 28 05/30/17 13:01 65 16 28 05/30/17 12:50 Mechanical Ventilator 15.0 28 05/30/17 12:00 63 05/30/17 12:00 98.5 64 16 156/79 99 Mechanical Ventilator 28 05/30/17 12:00 28 05/30/17 11:24 62 16 100 Mechanical Ventilator 28 05/30/17 11:12 63 16 100 Mechanical Ventilator 28 05/30/17 11:11 63 16 28 05/30/17 09:09 62 16 99 Mechanical Ventilator 28 05/30/17 09:07 60 16 100 Mechanical Ventilator 28 05/30/17 09:06 60 16 28 05/30/17 08:00 28 05/30/17 08:00 98.1 60 16 154/74 99 Mechanical Ventilator 28 05/30/17 08:00 60 Height (Feet): 5 Height (Inches): 0.00 Weight (Pounds): 216 HEENT: status post trach Respiratory/Chest: lungs clear, other - on ventilator Cardiovascular: normal rate, other - RIJ HD line Abdomen: soft, non tender, other - GT feeding Extremities: other - anasarca, R arm PICC line Neurologic/Psychiatric: other - opens eyes Current Medications Medications (Trade) Dose Ordered Sig/Alex Route PRN Reason Start Time Stop Time Status Last Admin Dose Admin Acetaminophen (Tylenol) 650 mg Q6H PRN GT Mild Pain/Temp > 100.5 05/30/17 01:15 06/22/17 19:14 Albuterol Sulfate (Proventil) 2.5 mg Q4HRT HHN 05/29/17 23:00 06/02/17 09:59 05/31/17 07:29 Allopurinol (Allopurinol) 300 mg DAILY GT 05/30/17 09:00 06/24/17 08:59 05/30/17 09:15 Amiodarone HCl (Cordarone) 200 mg DAILY GT 05/30/17 09:00 06/26/17 20:59 05/30/17 09:15 Atenolol (Tenormin) 12.5 mg DAILY GT 05/30/17 09:00 06/24/17 10:59 Bisacodyl (Dulcolax) 5 mg DAILYPRN PRN RECTAL Constipation 05/29/17 20:30 06/22/17 20:29 Cefepime HCl 2 gm/ Dextrose 55 ml @ 110 mls/hr Q24H IV 05/30/17 21:00 06/06/17 20:59 05/30/17 20:30 Chlorhexidine Gluconate (Rubina-Hex 2%) 1 applic DAILY@2000 TOPIC 05/29/17 20:00 06/24/17 19:59 05/30/17 20:00 Dextrose (Dextrose 50%) STAT PRN IV Hypoglycemia 05/30/17 08:30 06/23/17 08:29 Epoetin Amadou (Procrit (for non ESRD use)) 10,000 units MON-WED-SUN SUBQ 05/30/17 21:00 06/24/17 20:59 05/30/17 20:30 Heparin Sodium (Porcine) (Heparin 5000 units/ml) 5,000 units EVERY 12 HOURS SUBQ 05/29/17 21:00 06/22/17 08:59 05/30/17 20:32 Insulin Aspart (NovoLOG) EVERY 6 HOURS SUBQ 05/30/17 00:00 06/23/17 11:29 05/31/17 06:24 Ipratropium [place] (Atrovent) 500 mcg Q4HRT HHN 05/29/17 23:00 06/02/17 09:59 05/31/17 07:28 Lansoprazole (Prevacid) 30 mg DAILY GT 05/31/17 09:00 06/30/17 08:59 Levothyroxine Sodium (Synthroid) 75 mcg ACBREAKFAST GT 05/30/17 06:30 06/21/17 06:29 05/31/17 06:22 Levothyroxine Sodium (Synthroid) 100 mcg ACBREAKFAST GT 05/30/17 06:30 06/21/17 06:29 05/31/17 06:23 Metronidazole (Flagyl) 500 mg Q8H GT 05/29/17 20:00 06/02/17 11:59 05/31/17 03:48 Midodrine (Pro-Amatine) 5 mg BID ORAL 05/31/17 09:00 06/27/17 12:59 Patient Own Medication (Patient's Own Med) 1 ea BID ORAL 05/30/17 09:00 06/28/17 17:59 05/30/17 17:37 Patient Own Medication (Patient's Own Med) 1 ea QID BOTH EYES 05/29/17 21:00 06/28/17 17:59 05/30/17 20:30 Patient Own Medication (Patient's Own Med) 1 ea QID BOTH EYES 05/29/17 21:00 06/22/17 20:59 05/30/17 20:31 EPIFANIO NGUYEN May 31, 2017 07:51
--- NOTE | 2017-05-31 07:54 | Pulmonology Progress Note ---
Assessment/Plan Assessment/Plan IMPRESSION respiratory failure possible UTI sepsis ARF/CRF hyperkalemia pericardial effusion possible renal cyst vs mass hypertension (now with normal BP off meds) chronic encephalopathy hypothyroidism diabetes possible cirrhosis atrial fib, paroxysmal hyperuricemia pain possible ascites pericardial fluid collection PLAN ventilator management- as is monitor acid base for change- ABG repeat improved PIP and adjust MR abdomen and ultrasound when stable monitor ascites and need for repeat tap sliding scale and monitor sugars- sugars controlled monitor for residuals GT care GI/renal/ID/cards evaluation monitor clinically antibiotics noted- ID discussed WBC improved HD- as able and hope to see further recovery and UO (slightly better) medications/laboratory data/nursing notes reviewed in detail note reviewed and edited care discussed with RN and RT Subjective ROS Limited/Unobtainable: Yes Allergies: Coded Allergies: OLANZAPINE (Verified Allergy, Severe, RESP FAILURE, 11/25/13) VANCOMYCIN (Verified Allergy, Severe, 11/25/13) PIPERACILLIN (Verified Allergy, Intermediate, HIVES, 11/25/13) TAZOBACTAM (Verified Allergy, Intermediate, HIVES, 11/25/13) Subjective overnight events reviewed labs noted short bout of afib rate remains controlled urine output improving d/w sister at length moved to SDU Objective Last 24 Hour Vital Signs Date Time Temp Pulse Resp B/P (MAP) Pulse Ox O2 Delivery O2 Flow Rate FiO2 05/31/17 07:21 73 16 28 05/31/17 05:16 73 16 28 05/31/17 04:00 28 05/31/17 04:00 99.4 74 18 148/78 97 Mechanical Ventilator 28 05/31/17 04:00 74 05/31/17 03:12 68 16 97 Mechanical Ventilator 15.0 28 05/31/17 03:00 28 05/31/17 02:57 68 16 97 Mechanical Ventilator 15.0 28 05/31/17 02:55 67 16 28 05/31/17 01:35 70 16 28 05/31/17 00:00 99.0 70 20 145/65 96 Mechanical Ventilator 28 05/31/17 00:00 70 05/30/17 23:15 68 16 28 05/30/17 23:00 Mechanical Ventilator 05/30/17 23:00 Mechanical Ventilator 05/30/17 21:12 66 16 28 05/30/17 20:07 65 19 94 Mechanical Ventilator 15.0 28 05/30/17 20:04 28 12/6/17 20:00 28 05/30/17 20:00 64 05/30/17 20:00 99.5 65 19 126/70 94 Mechanical Ventilator 28 05/30/17 19:52 64 16 95 Mechanical Ventilator 15.0 28 05/30/17 19:47 64 16 28 05/30/17 17:10 Mechanical Ventilator 15.0 28 05/30/17 16:37 70 16 28 05/30/17 16:00 28 05/30/17 16:00 98.1 66 17 129/69 99 Mechanical Ventilator 28 05/30/17 16:00 66 05/30/17 14:50 63 16 99 Mechanical Ventilator 28 05/30/17 14:43 61 16 99 Mechanical Ventilator 28 05/30/17 14:40 61 16 28 05/30/17 13:01 65 16 28 05/30/17 12:50 Mechanical Ventilator 15.0 28 05/30/17 12:00 63 05/30/17 12:00 98.5 64 16 156/79 99 Mechanical Ventilator 28 05/30/17 12:00 28 05/30/17 11:24 62 16 100 Mechanical Ventilator 28 05/30/17 11:12 63 16 100 Mechanical Ventilator 28 05/30/17 11:11 63 16 28 05/30/17 09:09 62 16 99 Mechanical Ventilator 28 05/30/17 09:07 60 16 100 Mechanical Ventilator 28 05/30/17 09:06 60 16 28 05/30/17 08:00 28 05/30/17 08:00 98.1 60 16 154/74 99 Mechanical Ventilator 28 05/30/17 08:00 60 Objective WDWN female chronically ill NAD coarse breath sounds bilaterally without rhonchi or wheeze PIP reviewed and higher [id number] without MRG NABS nontender no HSM; protuberant; GT- no CC some edema diffusely short neck unresponsive reviewed and edited Current Medications Medications (Trade) Dose Ordered Sig/Alex Route PRN Reason Start Time Stop Time Status Last Admin Dose Admin Acetaminophen (Tylenol) 650 mg Q6H PRN GT Mild Pain/Temp > 100.5 05/30/17 01:15 06/22/17 19:14 Albuterol Sulfate (Proventil) 2.5 mg Q4HRT HHN 05/29/17 23:00 06/02/17 09:59 05/31/17 07:29 Allopurinol (Allopurinol) 300 mg DAILY GT 05/30/17 09:00 06/24/17 08:59 05/30/17 09:15 Amiodarone HCl (Cordarone) 200 mg DAILY GT 05/30/17 09:00 06/26/17 20:59 05/30/17 09:15 Atenolol (Tenormin) 12.5 mg DAILY GT 05/30/17 09:00 06/24/17 10:59 Bisacodyl (Dulcolax) 5 mg DAILYPRN PRN RECTAL Constipation 05/29/17 20:30 06/22/17 20:29 Cefepime HCl 2 gm/ Dextrose 55 ml @ 110 mls/hr Q24H IV 05/30/17 21:00 06/06/17 20:59 05/30/17 20:30 Chlorhexidine Gluconate (Rubina-Hex 2%) 1 applic DAILY@2000 TOPIC 05/29/17 20:00 06/24/17 19:59 05/30/17 20:00 Dextrose (Dextrose 50%) STAT PRN IV Hypoglycemia 05/30/17 08:30 06/23/17 08:29 Epoetin Amadou (Procrit (for non ESRD use)) 10,000 units SUN-SUN-SUN SUBQ 05/30/17 21:00 06/24/17 20:59 05/30/17 20:30 Heparin Sodium (Porcine) (Heparin 5000 units/ml) 5,000 units EVERY 12 HOURS SUBQ 05/29/17 21:00 06/22/17 08:59 05/30/17 20:32 Insulin Aspart (NovoLOG) EVERY 6 HOURS SUBQ 05/30/17 00:00 06/23/17 11:29 05/31/17 06:24 Ipratropium [place] (Atrovent) 500 mcg Q4HRT HHN 05/29/17 23:00 06/02/17 09:59 05/31/17 07:28 Lansoprazole (Prevacid) 30 mg DAILY GT 05/31/17 09:00 06/30/17 08:59 Levothyroxine Sodium (Synthroid) 75 mcg ACBREAKFAST GT 05/30/17 06:30 06/21/17 06:29 05/31/17 06:22 Levothyroxine Sodium (Synthroid) 100 mcg ACBREAKFAST GT 05/30/17 06:30 06/21/17 06:29 05/31/17 06:23 Metronidazole (Flagyl) 500 mg Q8H GT 05/29/17 20:00 06/02/17 11:59 05/31/17 03:48 Midodrine (Pro-Amatine) 5 mg BID ORAL 05/31/17 09:00 06/27/17 12:59 Patient Own Medication (Patient's Own Med) 1 ea BID ORAL 05/30/17 09:00 06/28/17 17:59 05/30/17 17:37 Patient Own Medication (Patient's Own Med) 1 ea QID BOTH EYES 05/29/17 21:00 06/28/17 17:59 05/30/17 20:30 Patient Own Medication (Patient's Own Med) 1 ea QID BOTH EYES 05/29/17 21:00 06/22/17 20:59 05/30/17 20:31 ANTIONETTE RODRIGUEZ May 31, 2017 07:54
--- NOTE | 2017-05-31 08:55 | General Progress Note ---
Assessment/Plan Assessment/Plan Assessment - Encephalopathy - Resp failure - Trach - dysphagia - PEG - abnormal LFT--> Improving - edema / anasarca - abd distention due to ascites - no SBP on tap - UTI/PNA - leukocytosis --> Improving - azotemia - pericardial effusion - marked thrombocytosis - poor Px Recommendations - continue TF - f/u hepatitis serologies --> Negative - hold off on GT change - check C Diff - will need periodic paracentesis - continue abx Subjective Allergies: Coded Allergies: OLANZAPINE (Verified Allergy, Severe, RESP FAILURE, 11/25/13) VANCOMYCIN (Verified Allergy, Severe, 11/25/13) PIPERACILLIN (Verified Allergy, Intermediate, HIVES, 11/25/13) TAZOBACTAM (Verified Allergy, Intermediate, HIVES, 11/25/13) Subjective d/w RN tolerating TF abd less distended d/w private duty Objective Last 24 Hour Vital Signs Date Time Temp Pulse Resp B/P (MAP) Pulse Ox O2 Delivery O2 Flow Rate FiO2 05/31/17 08:04 67 18 99 Mechanical Ventilator 28 05/31/17 07:55 28 05/31/17 07:52 69 16 99 Mechanical Ventilator 28 05/31/17 07:21 73 16 28 05/31/17 05:16 73 16 28 05/31/17 04:00 28 05/31/17 04:00 99.4 74 18 148/78 97 Mechanical Ventilator 05/31/17 04:00 74 05/31/17 03:12 68 16 97 Mechanical Ventilator 15.0 28 05/31/17 03:00 28 05/31/17 02:57 68 16 97 Mechanical Ventilator 15.0 28 05/31/17 02:55 67 16 28 05/31/17 01:35 70 16 28 05/31/17 00:00 99.0 70 20 145/65 96 Mechanical Ventilator 28 05/31/17 00:00 70 05/30/17 23:15 68 16 28 05/30/17 23:00 Mechanical Ventilator 05/30/17 23:00 Mechanical Ventilator 05/30/17 21:12 66 16 28 05/30/17 20:07 65 19 94 Mechanical Ventilator 15.0 28 05/30/17 20:04 28 05/30/17 20:00 28 05/30/17 20:00 64 05/30/17 20:00 99.5 65 19 126/70 94 Mechanical Ventilator 28 05/30/17 19:52 64 16 95 Mechanical Ventilator 15.0 28 05/30/17 19:47 64 16 28 05/30/17 17:10 Mechanical Ventilator 15.0 28 05/30/17 16:37 70 16 28 05/30/17 16:00 28 05/30/17 16:00 98.1 66 17 129/69 99 Mechanical Ventilator 28 05/30/17 16:00 66 05/30/17 14:50 63 16 99 Mechanical Ventilator 28 05/30/17 14:43 61 16 99 Mechanical Ventilator 28 05/30/17 14:40 61 16 28 05/30/17 13:01 65 16 28 05/30/17 12:50 Mechanical Ventilator 15.0 28 05/30/17 12:00 63 05/30/17 12:00 98.5 64 16 156/79 99 Mechanical Ventilator 28 05/30/17 12:00 28 05/30/17 11:24 62 16 100 Mechanical Ventilator 28 05/30/17 11:12 63 16 100 Mechanical Ventilator 28 05/30/17 11:11 63 16 28 05/30/17 09:09 62 16 99 Mechanical Ventilator 28 05/30/17 09:07 60 16 100 Mechanical Ventilator 28 05/30/17 09:06 60 16 28 Height (Feet): 5 Height (Inches): 0.00 Weight (Pounds): 216 Objective Obese WW NCAT supple Chest: coarse BS RRR obese, firm and distended abd, (+) GT (++) edema / anasarca OBS JILL WHITNEY May 31, 2017 08:55
[2017-05-31] MEDS: SYSTANE ULTRA BOTH EYES SCH ×4 (09:13→20:51)
[2017-05-31] MEDS: [UNRECOGNIZED DRUG - OTHER] ORAL SCH ×2 (09:13→17:42)
[2017-05-31] MEDS: Amiodarone 200mg tab GT SCH (09:14)
[2017-05-31] MEDS: Atenolol 12.5mg GT SCH (09:14)
[2017-05-31] MEDS: [UNRECOGNIZED DRUG - OTHER] BOTH EYES SCH ×4 (09:14→20:48)
[2017-05-31] MEDS: Heparin 5000 units/ml inj SUBQ SCH ×2 (09:17→20:50)
--- NOTE | 2017-05-31 10:38 | General Progress Note ---
Assessment/Plan Problem List: (1) Sepsis ICD Codes: A41.9 - Sepsis, unspecified organism SNOMED: 39692734 (2) Pneumonia ICD Codes: J18.9 - Pneumonia, unspecified organism SNOMED: 495619796 (3) Acute renal failure ICD Codes: N17.9 - Acute kidney failure, unspecified SNOMED: 59167097 (4) Pericardial effusion ICD Codes: I31.3 - Pericardial effusion (noninflammatory) SNOMED: 516710117 (5) Tracheostomy malfunction ICD Codes: J95.03 - Malfunction of tracheostomy stoma SNOMED: 98758709 (6) UTI (urinary tract infection) ICD Codes: N39.0 - Urinary tract infection, site not specified SNOMED: 91818418, 525509174 Qualifiers: Qualified Codes: N30.01 - Acute cystitis with hematuria Status: stable Assessment/Plan HD p[er renal iv abx monitor wbc- trending down vent support resp rx monitor renal fxn HD per renal poor prognosis. d/w caregiver. dnr try to transfer to tertiary hospital for pericardial drainage- no beds currently remains critical and guarded prognosis remains poor Subjective ROS Limited/Unobtainable: Yes Constitutional: Reports: malaise, weakness HEENT: Reports: no symptoms Cardiovascular: Reports: edema Respiratory: Reports: SOB with excertion, sputum Gastrointestinal/Abdominal: Reports: abdomen distended Genitourinary: Reports: no symptoms Neurologic/Psychiatric: Reports: pre-existing deficit Endocrine: Reports: no symptoms Hematologic/Lymphatic: Reports: anemia Allergies: Coded Allergies: OLANZAPINE (Verified Allergy, Severe, RESP FAILURE, 11/25/13) VANCOMYCIN (Verified Allergy, Severe, 11/25/13) PIPERACILLIN (Verified Allergy, Intermediate, HIVES, 11/25/13) TAZOBACTAM (Verified Allergy, Intermediate, HIVES, 11/25/13) All Systems: reviewed and negative except above Subjective stable. no events. off amio drip. no svt. HR well controlled. tolerating feeds. poor uop. on iv abx. caregiver asking about giving bumex. otherwise no new concerns Objective Last 24 Hour Vital Signs Date Time Temp Pulse Resp B/P (MAP) Pulse Ox O2 Delivery O2 Flow Rate FiO2 05/31/17 09:23 71 16 28 05/31/17 08:04 67 18 99 Mechanical Ventilator 28 05/31/17 08:00 28 05/31/17 08:00 71 05/31/17 08:00 99.5 68 24 144/71 99 Mechanical Ventilator 28 05/31/17 07:55 28 05/31/17 07:52 69 16 99 Mechanical Ventilator 28 05/31/17 07:21 73 16 28 05/31/17 05:16 73 16 28 05/31/17 04:00 28 05/31/17 04:00 99.4 74 18 148/78 97 Mechanical Ventilator 28 05/31/17 04:00 74 05/31/17 03:12 68 16 97 Mechanical Ventilator 15.0 28 05/31/17 03:00 28 05/31/17 02:57 68 16 97 Mechanical Ventilator 15.0 28 05/31/17 02:55 67 16 28 05/31/17 01:35 70 16 28 05/31/17 00:00 99.0 70 20 145/65 96 Mechanical Ventilator 28 05/31/17 00:00 70 05/30/17 23:15 68 16 28 05/30/17 23:00 Mechanical Ventilator 05/30/17 23:00 Mechanical Ventilator 05/30/17 21:12 66 16 28 05/30/17 20:07 65 19 94 Mechanical Ventilator 15.0 28 05/30/17 20:04 28 05/30/17 20:00 28 05/30/17 20:00 64 05/30/17 20:00 99.5 65 19 126/70 94 Mechanical Ventilator 28 05/30/17 19:52 64 16 95 Mechanical Ventilator 15.0 28 05/30/17 19:47 64 16 28 05/30/17 17:10 Mechanical Ventilator 15.0 28 05/30/17 16:37 70 16 28 05/30/17 16:00 28 05/30/17 16:00 98.1 66 17 129/69 99 Mechanical Ventilator 28 05/30/17 16:00 66 05/30/17 14:50 63 16 99 Mechanical Ventilator 28 05/30/17 14:43 61 16 99 Mechanical Ventilator 28 05/30/17 14:40 61 16 28 05/30/17 13:01 65 16 28 05/30/17 12:50 Mechanical Ventilator 15.0 28 05/30/17 12:00 63 05/30/17 12:00 98.5 64 16 156/79 99 Mechanical Ventilator 28 05/30/17 12:00 28 05/30/17 11:24 62 16 100 Mechanical Ventilator 28 05/30/17 11:12 63 16 100 Mechanical Ventilator 28 05/30/17 11:11 63 16 28 Intake and Output 05/31/17 06/01/17 19:00 07:00 # Bowel Movements 1 Height (Feet): 5 Height (Inches): 0.00 Weight (Pounds): 216 General Appearance: lethargic, obese, morbidly obese Neck: supple Cardiovascular: regular rhythm Respiratory/Chest: lungs clear Abdomen: non tender, soft, decreased bowel sounds, distended Edema: severe edema Neurologic: unresponsive, aphasia Objective General Appearance: WD/WN, alert Neck: supple Cardiovascular: regular rhythm Respiratory/Chest: lungs clear Abdomen: hypoactive bowel sounds, distended Edema: severe edema Neurologic: unresponsive OCHOA BISWAS May 31, 2017 10:38
--- NOTE | 2017-05-31 12:53 | Nephrology Progress Note ---
Assessment/Plan Problem List: (1) Acute renal failure Assessment: urine out put higher (2) Sepsis (3) UTI (urinary tract infection) (4) Tracheostomy dependence (5) Hypotension Assessment urine out put rising Dialysed 05/26 and 850 cc removed- re done 05/28 and 05/30 Ascitic tap 2 liter removed 05/25 Urine out put remains low persistantly -. Acute renal failure due to ? sepsis , intravascular volume depletion, low BP... Cr rising- Urine out put down- -. Hypoalbuminemia: - Increase loss: NS - Decrease production: Nutritional -. Shock, sepsis, pneumonia, pericardial effusion. -. History of hypertension, now with low blood pressure. -. Hyperkalemia. improved -. Hyponatremia. improved -. Prerenal azotemia. -. Respiratory failure with tracheostomy. -. Anasarca with ascites. due to low Albumin -. HypoThyroidism . Plan hold on dialysis- monitor renal parameters- K and Phos supplementas needed midodrine dialysis as needed and UF trial as BP remains stable STOP ALL NON FORMULARY SUPPLEMENTS- Diet to Nepro- DC Amphojel Antibiotics- DC Bicitra IV protonix Pulmonary support- Keep BP in check, midodrine when needed Monitor renal parameters- Avoid nephrotoxics 24 H urine for proteins pending per orders talked to SOREN connors health care recruiter and Dr De León 05/23 Long phone conversation with sister who requests transfer to [facility] 05/23 down on IV fluid discussed with PHIL Fernandez Subjective ROS Limited/Unobtainable: Yes Objective Objective Last 24 Hour Vital Signs Date Time Temp Pulse Resp B/P (MAP) Pulse Ox O2 Delivery O2 Flow Rate FiO2 05/31/17 12:13 Mechanical Ventilator 15.0 28 05/31/17 12:00 77 05/31/17 12:00 99.4 78 16 134/69 99 Mechanical Ventilator 28 05/31/17 12:00 28 05/31/17 11:51 80 18 99 Mechanical Ventilator 28 05/31/17 11:34 28 05/31/17 11:33 74 16 98 Mechanical Ventilator 28 05/31/17 11:30 75 16 28 05/31/17 09:23 71 16 28 05/31/17 08:04 67 18 99 Mechanical Ventilator 28 05/31/17 08:00 28 05/31/17 08:00 71 05/31/17 08:00 99.5 68 24 144/71 99 Mechanical Ventilator 28 05/31/17 07:55 28 05/31/17 07:52 69 16 99 Mechanical Ventilator 28 05/31/17 07:21 73 16 28 05/31/17 05:16 73 16 28 05/31/17 04:00 28 05/31/17 04:00 99.4 74 18 148/78 97 Mechanical Ventilator 28 05/31/17 04:00 74 05/31/17 03:12 68 16 97 Mechanical Ventilator 15.0 28 05/31/17 03:00 28 05/31/17 02:57 68 16 97 Mechanical Ventilator 15.0 28 05/31/17 02:55 67 16 28 05/31/17 01:35 70 16 28 05/31/17 00:00 99.0 70 20 145/65 96 Mechanical Ventilator 28 05/31/17 00:00 70 05/30/17 23:15 68 16 28 05/30/17 23:00 Mechanical Ventilator 05/30/17 23:00 Mechanical Ventilator 05/30/17 21:12 66 16 28 05/30/17 20:07 65 19 94 Mechanical Ventilator 15.0 28 05/30/17 20:04 28 05/30/17 20:00 28 05/30/17 20:00 64 05/30/17 20:00 99.5 65 19 126/70 94 Mechanical Ventilator 28 05/30/17 19:52 64 16 95 Mechanical Ventilator 15.0 28 05/30/17 19:47 64 16 28 05/30/17 17:10 Mechanical Ventilator 15.0 28 05/30/17 16:37 70 16 28 05/30/17 16:00 28 05/30/17 16:00 98.1 66 17 129/69 99 Mechanical Ventilator 28 05/30/17 16:00 66 05/30/17 14:50 63 16 99 Mechanical Ventilator 28 05/30/17 14:43 61 16 99 Mechanical Ventilator 28 05/30/17 14:40 61 16 28 05/30/17 13:01 65 16 28 05/30/17 12:50 Mechanical Ventilator 15.0 28 Intake and Output 05/31/17 06/01/17 19:00 07:00 # Bowel Movements 2 Height (Feet): 5 Height (Inches): 0.00 Weight (Pounds): 216 General Appearance: no apparent distress EENT: other - on vent Cardiovascular: normal rate Respiratory/Chest: decreased breath sounds Abdomen: distended Extremities: other - edema ++ Objective no other changes QIANA SALGADO May 31, 2017 12:53
[2017-05-31] MEDS ORDERED: NS 500ML ONE (15:37)
--- NOTE | 2017-05-31 20:45 | Progress Note ---
DATE: 05/31/2017 CARDIOLOGY PROGRESS NOTE SUBJECTIVE: The patient had two episodes of atrial fibrillation over the past 24 hours that lasted almost 10 minutes. Heart rates were up to 130. The episodes were self-limited. An echocardiogram today revealed pericardial fluid accumulation, but it appears that the fluid may actually be anteriorly only and may actually be surrounding the pericardium. Clearly, there is no evidence of pericardial effusion or worsening fluid collection compared to prior study from admission. OBJECTIVE: VITAL SIGNS: Blood pressure 144/71, heart rate 68, respiratory rate 24, and temperature 99.5 degrees. LUNGS: Diminished breath sounds. HEART: Regular rhythm and rate. Normal S1, S2. ABDOMEN: Obese with G-tube intact. EXTREMITIES: Dependent edema. IMPRESSION: 1. Acute renal failure, improved. 2. Acute on chronic diastolic congestive heart failure. 3. Sepsis with shock, recovering with stabilizing blood pressure. 4. Paroxysmal atrial fibrillation, persistent. 5. No significant pericardial fluid accumulation. PLAN: Dialysis versus diuresis. Antimicrobials. No plan for pericardiocentesis at this time. Ventilator support. Continue amiodarone for arrhythmia suppression. Ramo Toure M.D. DR: Donita JOB#: [id number] CC:
[2017-05-31] MEDS: Dyna-Hex 2% Top Sol 2oz TOPIC SCH (20:47)
[2017-05-31] MEDS: Cefepime HCl 2 GM in D5W 55 ML IV SCH (20:48)
[2017-06-01] VITALS (7 sets, daily range): BP systolic 103–147; BP diastolic 73–83
[2017-06-01] MEDS: Ipratropium 0.02% Inh Soln 2.5ml UD HHN SCH ×6 (03:09→22:49)
[2017-06-01] MEDS: Albuterol ud Inhalation HHN SCH ×6 (03:09→22:49)
[2017-06-01] MEDS: metroNIDAZOLE 500mg tab GT SCH ×3 (03:43→20:46)
[2017-06-01 05:11] LABS: MEAN CORPUSCULAR HEMOGLOBIN 31.7 PG (27.0-31.0); MEAN CORPUSCULAR HGB CONC 31.5 G/DL (32.0-36.0); MEAN CORPUSCULAR VOLUME 101 FL (80-99); MEAN PLATELET VOLUME 6.8 FL (6.5-10.1); PLATELET COUNT 311 K/UL (150-450); RED BLOOD COUNT 2.47 M/UL (4.20-5.40); RED CELL DISTRIBUTION WIDTH 27.8 % (11.6-14.8); WHITE BLOOD COUNT 14.8 K/UL (4.8-10.8)
[2017-06-01 05:54] LABS: ALANINE AMINOTRANSFERASE 44 U/L (12-78); ALBUMIN/GLOBULIN RATIO 0.6 (1.0-2.7); ANION GAP 6 mmol/L (5-15); ASPARTATE AMINO TRANSFERASE 33 U/L (15-37); CALCIUM 8.3 MG/DL (8.5-10.1); CARBON DIOXIDE 36 MMOL/L (21-32); CHLORIDE 103 MMOL/L (98-107); CREATININE 1.1 MG/DL (0.55-1.30); CRP QUANT 3.2 mg/dL (0.00-0.90); GLOMERULAR FILTRATION RATE 50.3 mL/min (>60); MAGNESIUM 1.8 MG/DL (1.8-2.4); PHOSPHORUS 1.5 MG/DL (2.5-4.9); SODIUM 145 MMOL/L (136-145); TOTAL PROTEIN 5.4 G/DL (6.4-8.2); URIC ACID 4.8 MG/DL (2.6-7.2)
[2017-06-01 05:57] LABS: POTASSIUM 2.7 MMOL/L (3.5-5.1)
[2017-06-01 06:00] LABS: BILIRUBIN,DIRECT 0.3 MG/DL (0.0-0.3)
[2017-06-01] MEDS: NovoLOG Insulin Flexpen SUBQ SCH ×4 (06:30→23:14)
[2017-06-01 07:06] LABS: BAND NEUTROPHILS % (MANUAL) 1 % (0-8); BASOPHILS % (MANUAL) 0 % (0-2); EOSINOPHILS % (MANUAL) 2 % (0-3); LYMPHOCYTES % (MANUAL) 10 % (20-45); NEUTROPHILS % (MANUAL) 84 % (45-75); PLATELET ESTIMATE ADEQUATE; TOTAL CELLS COUNTED 100
[2017-06-01 07:07] LABS: ANISOCYTOSIS 4+; HYPOCHROMASIA 3+; MACROCYTES 1+; POLYCHROMASIA 1+
[2017-06-01 07:08] LABS: PLATELET MORPHOLOGY NORMAL
--- NOTE | 2017-06-01 08:30 | General Progress Note ---
Assessment/Plan Problem List: (1) Sepsis ICD Codes: A41.9 - Sepsis, unspecified organism SNOMED: 11032269 (2) Pneumonia ICD Codes: J18.9 - Pneumonia, unspecified organism SNOMED: 605480023 (3) Acute renal failure ICD Codes: N17.9 - Acute kidney failure, unspecified SNOMED: 82669899 (4) Pericardial effusion ICD Codes: I31.3 - Pericardial effusion (noninflammatory) SNOMED: 950312856 (5) Tracheostomy malfunction ICD Codes: J95.03 - Malfunction of tracheostomy stoma SNOMED: 85167207 (6) UTI (urinary tract infection) ICD Codes: N39.0 - Urinary tract infection, site not specified SNOMED: 25250062, 098680348 Qualifiers: Qualified Codes: N30.01 - Acute cystitis with hematuria Status: stable, progressing Assessment/Plan HD per renal iv abx monitor wbc- trending down vent support resp rx monitor renal fxn HD per renal poor prognosis. d/w caregiver. transfuse dnr try to transfer to tertiary hospital for pericardial drainage- no beds currently remains critical and guarded prognosis remains poor Subjective ROS Limited/Unobtainable: Yes Constitutional: Reports: malaise, weakness HEENT: Reports: no symptoms Cardiovascular: Reports: no symptoms Respiratory: Reports: shortness of breath, sputum Gastrointestinal/Abdominal: Reports: abdomen distended Genitourinary: Reports: no symptoms Neurologic/Psychiatric: Reports: pre-existing deficit Endocrine: Reports: no symptoms Hematologic/Lymphatic: Reports: anemia Allergies: Coded Allergies: OLANZAPINE (Verified Allergy, Severe, RESP FAILURE, 11/25/13) VANCOMYCIN (Verified Allergy, Severe, 11/25/13) PIPERACILLIN (Verified Allergy, Intermediate, HIVES, 11/25/13) TAZOBACTAM (Verified Allergy, Intermediate, HIVES, 11/25/13) All Systems: reviewed and negative except above Subjective no events. d/w databases computer consultant at the bedside. intermittent afib. still with poor uop. decrease h/h noted. no bleeding noted. Objective Last 24 Hour Vital Signs Date Time Temp Pulse Resp B/P (MAP) Pulse Ox O2 Delivery O2 Flow Rate FiO2 06/01/17 07:38 83 16 99 Mechanical Ventilator 28 06/01/17 07:24 81 16 100 Mechanical Ventilator 06/01/17 07:24 28 128/17 06:30 83 16 28 06/01/17 05:08 87 16 28 06/01/17 04:00 98.9 83 16 132/73 99 Mechanical Ventilator 28 06/01/17 04:00 84 06/01/17 04:00 87 16 97 Mechanical Ventilator 28 06/01/17 04:00 28 06/01/17 03:03 81 16 98 Mechanical Ventilator 28 06/01/17 03:01 81 16 28 06/01/17 00:27 86 16 28 06/01/17 00:26 84 16 99 Mechanical Ventilator 28 06/01/17 00:00 98.1 55 24 103/82 92 Room Air 06/01/17 00:00 28 06/01/17 00:00 81 05/31/17 23:34 77 16 97 Mechanical Ventilator 28 05/31/17 23:25 28 05/31/17 23:21 82 16 28 05/31/17 21:06 74 16 97 Mechanical Ventilator 28 05/31/17 20:59 74 16 28 05/31/17 20:00 75 05/31/17 20:00 99.7 75 16 142/80 98 Mechanical Ventilator 28 05/31/17 20:00 28 05/31/17 19:37 76 16 97 Mechanical Ventilator 28 05/31/17 19:23 77 16 28 05/31/17 17:25 82 16 28 05/31/17 16:41 73 05/31/17 16:00 99.4 84 17 153/79 99 Mechanical Ventilator 28 05/31/17 16:00 28 05/31/17 15:50 83 18 99 Mechanical Ventilator 28 05/31/17 15:33 74 16 98 Mechanical Ventilator 28 05/31/17 15:33 28 05/31/17 15:30 75 16 28 05/31/17 13:00 75 16 28 05/31/17 12:13 Mechanical Ventilator 15.0 28 05/31/17 12:00 77 05/31/17 12:00 99.4 78 16 134/69 99 Mechanical Ventilator 28 05/31/17 12:00 28 05/31/17 11:51 80 18 99 Mechanical Ventilator 28 05/31/17 11:34 28 05/31/17 11:33 74 16 98 Mechanical Ventilator 28 05/31/17 11:30 75 16 28 05/31/17 09:23 71 16 28 Laboratory Tests 06/01/17 03:30: White Blood Count 14.8H, Red Blood Count 2.47L, Hemoglobin 7.8L, Hematocrit 24.9L, Mean Corpuscular Volume 101H, Mean Corpuscular Hemoglobin 31.7H, Mean Corpuscular Hemoglobin Concent 31.5L, Red Cell Distribution Width 27.8H, Platelet Count 311, Mean Platelet Volume 6.8, Neutrophils (%) (Auto) , Lymphocytes (%) (Auto) , Monocytes (%) (Auto) , Eosinophils (%) (Auto) , Basophils (%) (Auto) , Differential Total Cells Counted 100, Neutrophils % ( Manual) 84H, Lymphocytes % (Manual) 10L, Monocytes % (Manual) 3, Eosinophils % ( Manual) 2, Basophils % (Manual) 0, Band Neutrophils 1, Platelet Estimate Adequate, Platelet Morphology Normal, Polychromasia 1+, Hypochromasia 3+, Anisocytosis 4+, Macrocytosis 1+, Sodium Level 145, Potassium Level 2.7*L, Chloride Level 103, Carbon Dioxide Level 36H, Anion Gap 6, Blood Urea Nitrogen 34H, Creatinine 1.1, Estimat Glomerular Filtration Rate 50.3, Glucose Level 173H , Uric Acid 4.8, Calcium Level 8.3L, Phosphorus Level 1.5L, Magnesium Level 1.8 , Total Bilirubin 1.1H, Direct Bilirubin 0.3, Aspartate Amino Transf (AST/SGOT) 33, Alanine Aminotransferase (ALT/SGPT) 44, Alkaline Phosphatase 144H, C- Reactive Protein, Quantitative 3.2H, Pro-B-Type Natriuretic Peptide 3934H, Total Protein 5.4L, Albumin 2.0L, Globulin 3.4, Albumin/Globulin Ratio 0.6L Height (Feet): 5 Height (Inches): 0.00 Weight (Pounds): 217 Objective General Appearance: WD/WN, alert Neck: supple Cardiovascular: regular rhythm Respiratory/Chest: lungs clear Abdomen: hypoactive bowel sounds, distended Edema: severe edema Neurologic: unresponsive OCHOA BISWAS Jun 01, 2017 08:29
[2017-06-01] MEDS: Amiodarone 200mg tab GT SCH ×2 (08:32→17:43)
[2017-06-01] MEDS: Atenolol 12.5mg GT SCH (08:33)
--- NOTE | 2017-06-01 08:35 | Pulmonology Progress Note ---
Assessment/Plan Assessment/Plan IMPRESSION respiratory failure possible UTI sepsis ARF/CRF hyperkalemia pericardial effusion possible renal cyst vs mass hypertension (now with normal BP off meds) chronic encephalopathy hypothyroidism diabetes possible cirrhosis atrial fib, paroxysmal hyperuricemia pain possible ascites pericardial fluid collection anasarca PLAN ventilator management- as is monitor acid base for change- ABG repeat pending improved PIP and adjust CT chest to evaluate pericardial fluid collection again sliding scale and monitor sugars- sugars controlled monitor for residuals GT care GI/renal/ID/cards evaluation monitor clinically antibiotics noted- ID discussed WBC improved transfuse and replace lytes HD- per renal and monitor UO medications/laboratory data/nursing notes reviewed in detail note reviewed and edited care discussed with RN and RT Subjective ROS Limited/Unobtainable: Yes Allergies: Coded Allergies: OLANZAPINE (Verified Allergy, Severe, RESP FAILURE, 11/25/13) VANCOMYCIN (Verified Allergy, Severe, 11/25/13) PIPERACILLIN (Verified Allergy, Intermediate, HIVES, 11/25/13) TAZOBACTAM (Verified Allergy, Intermediate, HIVES, 11/25/13) Subjective overnight events reviewed labs noted short bout of afib noted echo without change d/w sister at length Objective Last 24 Hour Vital Signs Date Time Temp Pulse Resp B/P (MAP) Pulse Ox O2 Delivery O2 Flow Rate FiO2 06/01/17 07:38 83 16 99 Mechanical Ventilator 28 06/01/17 07:24 81 16 100 Mechanical Ventilator 28 06/01/17 07:24 28 06/01/17 06:30 83 16 28 06/01/17 05:08 87 16 28 06/01/17 04:00 98.9 83 16 132/73 99 Mechanical Ventilator 06/01/17 04:00 84 06/01/17 04:00 87 16 97 Mechanical Ventilator 28 06/01/17 04:00 28 06/01/17 03:03 81 16 98 Mechanical Ventilator 28 06/01/17 03:01 81 16 28 06/01/17 00:27 86 16 28 06/01/17 00:26 84 16 99 Mechanical Ventilator 28 06/01/17 00:00 98.1 55 24 103/82 92 Room Air 06/01/17 00:00 28 06/01/17 00:00 81 05/31/17 23:34 77 16 97 Mechanical Ventilator 28 05/31/17 23:25 28 05/31/17 23:21 82 16 28 05/31/17 21:06 74 16 97 Mechanical Ventilator 28 05/31/17 20:59 74 16 28 05/31/17 20:00 75 05/31/17 20:00 99.7 75 16 142/80 98 Mechanical Ventilator 28 05/31/17 20:00 28 05/31/17 19:37 76 16 97 Mechanical Ventilator 28 05/31/17 19:23 77 16 28 05/31/17 17:25 82 16 28 05/31/17 16:41 73 05/31/17 16:00 99.4 84 17 153/79 99 Mechanical Ventilator 28 05/31/17 16:00 28 05/31/17 15:50 83 18 99 Mechanical Ventilator 28 05/31/17 15:33 74 16 98 Mechanical Ventilator 28 05/31/17 15:33 28 05/31/17 15:30 75 16 28 05/31/17 13:00 75 16 28 05/31/17 12:13 Mechanical Ventilator 15.0 28 05/31/17 12:00 77 05/31/17 12:00 99.4 78 16 134/69 99 Mechanical Ventilator 28 05/31/17 12:00 28 05/31/17 11:51 80 18 99 Mechanical Ventilator 28 05/31/17 11:34 28 05/31/17 11:33 74 16 98 Mechanical Ventilator 28 05/31/17 11:30 75 16 28 05/31/17 09:23 71 16 28 Objective WDWN female chronically ill NAD coarse breath sounds bilaterally without rhonchi or wheeze PIP reviewed and higher [id number] without MRG NABS nontender no HSM; protuberant; GT- no CC some edema diffusely short neck unresponsive reviewed and edited Laboratory Tests 06/01/17 03:30: White Blood Count 14.8H, Red Blood Count 2.47L, Hemoglobin 7.8L, Hematocrit 24.9L, Mean Corpuscular Volume 101H, Mean Corpuscular Hemoglobin 31.7H, Mean Corpuscular Hemoglobin Concent 31.5L, Red Cell Distribution Width 27.8H, Platelet Count 311, Mean Platelet Volume 6.8, Neutrophils (%) (Auto) , Lymphocytes (%) (Auto) , Monocytes (%) (Auto) , Eosinophils (%) (Auto) , Basophils (%) (Auto) , Differential Total Cells Counted 100, Neutrophils % ( Manual) 84H, Lymphocytes % (Manual) 10L, Monocytes % (Manual) 3, Eosinophils % ( Manual) 2, Basophils % (Manual) 0, Band Neutrophils 1, Platelet Estimate Adequate, Platelet Morphology Normal, Polychromasia 1+, Hypochromasia 3+, Anisocytosis 4+, Macrocytosis 1+, Sodium Level 145, Potassium Level 2.7*L, Chloride Level 103, Carbon Dioxide Level 36H, Anion Gap 6, Blood Urea Nitrogen 34H, Creatinine 1.1, Estimat Glomerular Filtration Rate 50.3, Glucose Level 173H , Uric Acid 4.8, Calcium Level 8.3L, Phosphorus Level 1.5L, Magnesium Level 1.8 , Total Bilirubin 1.1H, Direct Bilirubin 0.3, Aspartate Amino Transf (AST/SGOT) 33, Alanine Aminotransferase (ALT/SGPT) 44, Alkaline Phosphatase 144H, C- Reactive Protein, Quantitative 3.2H, Pro-B-Type Natriuretic Peptide 3934H, Total Protein 5.4L, Albumin 2.0L, Globulin 3.4, Albumin/Globulin Ratio 0.6L Current Medications Medications (Trade) Dose Ordered Sig/Alex Route PRN Reason Start Time Stop Time Status Last Admin Dose Admin Acetaminophen (Tylenol) 650 mg Q6H PRN GT Mild Pain/Temp > 100.5 05/30/17 01:15 06/22/17 19:14 Albuterol Sulfate (Proventil) 2.5 mg Q4HRT HHN 05/29/17 23:00 06/02/17 09:59 06/01/17 07:24 Allopurinol (Allopurinol) 300 mg DAILY GT 05/30/17 09:00 06/24/17 08:59 05/31/17 09:13 Amiodarone HCl (Cordarone) 200 mg BID GT 06/01/17 09:00 06/26/17 20:59 Atenolol (Tenormin) 12.5 mg DAILY GT 05/30/17 09:00 06/24/17 10:59 05/31/17 09:14 Bisacodyl (Dulcolax) 5 mg DAILYPRN PRN RECTAL Constipation 05/29/17 20:30 06/22/17 20:29 Cefepime HCl 2 gm/ Dextrose 55 ml @ 110 mls/hr Q24H IV 05/30/17 21:00 06/06/17 20:59 05/31/17 20:48 Chlorhexidine Gluconate (Rubina-Hex 2%) 1 applic DAILY@2000 TOPIC 05/29/17 20:00 06/24/17 19:59 05/31/17 20:47 Dextrose (Dextrose 50%) STAT PRN IV Hypoglycemia 05/30/17 08:30 06/23/17 08:29 Epoetin Amadou (Procrit (for non ESRD use)) 10,000 units SUN-SUN-SUN SUBQ 05/30/17 21:00 06/24/17 20:59 05/30/17 20:30 Heparin Sodium (Porcine) (Heparin 5000 units/ml) 5,000 units EVERY 12 HOURS SUBQ 05/29/17 21:00 06/22/17 08:59 05/31/17 20:50 Insulin Aspart (NovoLOG) EVERY 6 HOURS SUBQ 05/30/17 00:00 06/23/17 11:29 06/01/17 06:30 Ipratropium [place] (Atrovent) 500 mcg Q4HRT HHN 05/29/17 23:00 06/02/17 09:59 06/01/17 07:24 Lansoprazole (Prevacid) 30 mg DAILY GT 05/31/17 09:00 06/30/17 08:59 05/31/17 09:14 Levothyroxine Sodium (Synthroid) 75 mcg ACBREAKFAST GT 05/30/17 06:30 06/21/17 06:29 06/01/17 06:28 Levothyroxine Sodium (Synthroid) 100 mcg ACBREAKFAST GT 05/30/17 06:30 06/21/17 06:29 06/01/17 06:28 Metronidazole (Flagyl) 500 mg Q8H GT 05/29/17 20:00 06/02/17 11:59 06/01/17 03:43 Midodrine (Pro-Amatine) 5 mg BID ORAL 05/31/17 09:00 06/27/17 12:59 Patient Own Medication (Patient's Own Med) 1 ea BID ORAL 05/30/17 09:00 06/28/17 17:59 05/31/17 17:42 Patient Own Medication (Patient's Own Med) 1 ea QID BOTH EYES 05/29/17 21:00 06/28/17 17:59 05/31/17 17:42 Patient Own Medication (Patient's Own Med) 1 ea QID BOTH EYES 05/29/17 21:00 06/22/17 20:59 05/31/17 20:48 Potassium Phosphate 20 mm/ Sodium Chloride 281.6667 ml @ 46.944 m... ONCE ONCE IV 06/01/17 09:00 06/01/17 14:59 Potassium Chloride (K-Dur) 40 meq Q4H GT 06/01/17 08:00 06/01/17 12:01 ANTIONETTE RODRIGUEZ Jun 01, 2017 08:35
[2017-06-01] MEDS: Heparin 5000 units/ml inj SUBQ SCH ×2 (08:46→20:47)
[2017-06-01] MEDS: [UNRECOGNIZED DRUG - OTHER] BOTH EYES SCH ×4 (08:49→20:47)
[2017-06-01] MEDS: SYSTANE ULTRA BOTH EYES SCH ×4 (08:49→20:47)
[2017-06-01] MEDS: [UNRECOGNIZED DRUG - OTHER] ORAL SCH ×2 (08:49→17:43)
[2017-06-01] MEDS ORDERED: Potassium Phosphate 20 MM in NS 275 ML IV ONE (09:00)
--- NOTE | 2017-06-01 11:11 | Nephrology Progress Note ---
Assessment/Plan Problem List: (1) Acute renal failure Assessment: urine out put higher (2) Sepsis (3) UTI (urinary tract infection) (4) Tracheostomy dependence (5) Hypotension Assessment urine out put rising H&H lower K is low Last HD 05/30 First Dialysed 05/26 and 850 cc removed- Ascitic tap 2 liter removed 05/25 -. Acute renal failure due to ? sepsis , intravascular volume depletion, low BP... Urine out put increasing -. Hypoalbuminemia: - Increase loss: NS - Decrease production: Nutritional -. Shock, sepsis, pneumonia, pericardial effusion. -. History of hypertension, now with low blood pressure. -. Hyperkalemia. improved -. Hyponatremia. improved -. Prerenal azotemia. -. Respiratory failure with tracheostomy. -. Anasarca with ascites. due to low Albumin -. HypoThyroidism . Plan transfuse- K and phos supplement No dialysis , Urine out put higher- Will manage with Lasix PER ORDERS Diet to Nepro- Antibiotics- IV protonix Pulmonary support- Keep BP in check, midodrine when needed Monitor renal parameters- Avoid nephrotoxics per orders talked to SOREN [facility] child caregiver and Dr De León 05/23 Long phone conversation with sister who requests transfer to [facility] 05/23 discussed with PHIL Fernandez Subjective ROS Limited/Unobtainable: No Objective Objective Last 24 Hour Vital Signs Date Time Temp Pulse Resp B/P (MAP) Pulse Ox O2 Delivery O2 Flow Rate FiO2 06/01/17 09:26 83 16 28 06/01/17 08:00 28 06/01/17 08:00 98.1 82 16 136/81 99 Mechanical Ventilator 06/01/17 08:00 83 06/01/17 07:38 83 16 99 Mechanical Ventilator 28 06/01/17 07:24 81 16 100 Mechanical Ventilator 28 06/01/17 07:24 28 06/01/17 06:30 83 16 28 06/01/17 05:08 87 16 28 06/01/17 04:00 98.9 83 16 132/73 99 Mechanical Ventilator 06/01/17 04:00 84 06/01/17 04:00 87 16 97 Mechanical Ventilator 28 06/01/17 04:00 28 06/01/17 03:03 81 16 98 Mechanical Ventilator 28 06/01/17 03:01 81 16 28 06/01/17 00:27 86 16 28 06/01/17 00:26 84 16 99 Mechanical Ventilator 28 06/01/17 00:00 98.1 55 24 103/82 92 Room Air 06/01/17 00:00 28 06/01/17 00:00 81 05/31/17 23:34 77 16 97 Mechanical Ventilator 28 05/31/17 23:25 28 05/31/17 23:21 82 16 28 05/31/17 21:06 74 16 97 Mechanical Ventilator 28 05/31/17 20:59 74 16 28 05/31/17 20:00 75 05/31/17 20:00 99.7 75 16 142/80 98 Mechanical Ventilator 28 05/31/17 20:00 28 05/31/17 19:37 76 16 97 Mechanical Ventilator 28 05/31/17 19:23 77 16 28 05/31/17 17:25 82 16 28 05/31/17 16:41 73 05/31/17 16:00 99.4 84 17 153/79 99 Mechanical Ventilator 28 05/31/17 16:00 28 05/31/17 15:50 83 18 99 Mechanical Ventilator 28 05/31/17 15:33 74 16 98 Mechanical Ventilator 28 05/31/17 15:33 28 05/31/17 15:30 75 16 28 05/31/17 13:00 75 16 28 05/31/17 12:13 Mechanical Ventilator 15.0 28 05/31/17 12:00 77 05/31/17 12:00 99.4 78 16 134/69 99 Mechanical Ventilator 28 05/31/17 12:00 28 05/31/17 11:51 80 18 99 Mechanical Ventilator 28 05/31/17 11:34 28 05/31/17 11:33 74 16 98 Mechanical Ventilator 28 05/31/17 11:30 75 16 28 Intake and Output 06/01/17 06/02/17 19:00 07:00 Intake Total 23.475 ml Balance 23.475 ml IV Total 23.475 ml Laboratory Tests 06/01/17 03:30: White Blood Count 14.8H, Red Blood Count 2.47L, Hemoglobin 7.8L, Hematocrit 24.9L, Mean Corpuscular Volume 101H, Mean Corpuscular Hemoglobin 31.7H, Mean Corpuscular Hemoglobin Concent 31.5L, Red Cell Distribution Width 27.8H, Platelet Count 311, Mean Platelet Volume 6.8, Neutrophils (%) (Auto) , Lymphocytes (%) (Auto) , Monocytes (%) (Auto) , Eosinophils (%) (Auto) , Basophils (%) (Auto) , Differential Total Cells Counted 100, Neutrophils % ( Manual) 84H, Lymphocytes % (Manual) 10L, Monocytes % (Manual) 3, Eosinophils % ( Manual) 2, Basophils % (Manual) 0, Band Neutrophils 1, Platelet Estimate Adequate, Platelet Morphology Normal, Polychromasia 1+, Hypochromasia 3+, Anisocytosis 4+, Macrocytosis 1+, Sodium Level 145, Potassium Level 2.7*L, Chloride Level 103, Carbon Dioxide Level 36H, Anion Gap 6, Blood Urea Nitrogen 34H, Creatinine 1.1, Estimat Glomerular Filtration Rate 50.3, Glucose Level 173H , Uric Acid 4.8, Calcium Level 8.3L, Phosphorus Level 1.5L, Magnesium Level 1.8 , Total Bilirubin 1.1H, Direct Bilirubin 0.3, Aspartate Amino Transf (AST/SGOT) 33, Alanine Aminotransferase (ALT/SGPT) 44, Alkaline Phosphatase 144H, C- Reactive Protein, Quantitative 3.2H, Pro-B-Type Natriuretic Peptide 3934H, Total Protein 5.4L, Albumin 2.0L, Globulin 3.4, Albumin/Globulin Ratio 0.6L Height (Feet): 5 Height (Inches): 0.00 Weight (Pounds): 217 General Appearance: no apparent distress, other - on vent- Cardiovascular: normal rate Respiratory/Chest: decreased breath sounds Abdomen: soft, distended Extremities: other - edematous Objective no other changes QIANA SALGADO Jun 01, 2017 11:11
--- NOTE | 2017-06-01 12:20 | Infectious Diseases Prog Note ---
"Assessment/Plan Assessment/Plan antibiotics : cefepime, flagyl A 1. klebsiella UTI s/p rx 2. leucocytosis improving 3. respiratory failure 4. DM 5. HTN 6. anoxic brain injury 7. pericardial effusion 8. serratia | pseudomonas pneumonia P 1. continue cefepime, flagyl 4 more days 2. will follow up cultures Subjective ROS Limited/Unobtainable: Yes Allergies: Coded Allergies: OLANZAPINE (Verified Allergy, Severe, RESP FAILURE, 11/25/13) VANCOMYCIN (Verified Allergy, Severe, 11/25/13) PIPERACILLIN (Verified Allergy, Intermediate, HIVES, 11/25/13) TAZOBACTAM (Verified Allergy, Intermediate, HIVES, 11/25/13) Objective Vital Signs Last 24 Hour Vital Signs Date Time Temp Pulse Resp B/P (MAP) Pulse Ox O2 Delivery O2 Flow Rate FiO2 06/01/17 12:00 28 06/01/17 11:58 Mechanical Ventilator 15.0 28 06/01/17 11:46 Mechanical Ventilator 15.0 28 06/01/17 11:37 79 16 99 Mechanical Ventilator 28 06/01/17 11:28 28 06/01/17 11:28 79 16 100 Mechanical Ventilator 28 06/01/17 11:26 80 16 28 06/01/17 09:26 83 16 28 06/01/17 08:00 28 06/01/17 08:00 98.1 82 16 136/81 99 Mechanical Ventilator 28 06/01/17 08:00 83 06/01/17 07:38 83 16 99 Mechanical Ventilator 28 06/01/17 07:24 81 16 100 Mechanical Ventilator 28 06/01/17 07:24 28 06/01/17 06:30 83 16 28 06/01/17 05:08 87 16 28 06/01/17 04:00 98.9 83 16 132/73 99 Mechanical Ventilator 28 06/01/17 04:00 84 06/01/17 04:00 87 16 97 Mechanical Ventilator 28 06/01/17 04:00 28 06/01/17 03:03 81 16 98 Mechanical Ventilator 28 06/01/17 03:01 81 16 28 06/01/17 00:27 86 16 28 06/01/17 00:26 84 16 99 Mechanical Ventilator 28 06/01/17 00:00 98.1 55 24 103/82 92 Room Air 06/01/17 00:00 28 06/01/17 00:00 81 05/31/17 23:34 77 16 97 Mechanical Ventilator 28 05/31/17 23:25 28 05/31/17 23:21 82 16 28 05/31/17 21:06 74 16 97 Mechanical Ventilator 28 05/31/17 20:59 74 16 28 05/31/17 20:00 75 05/31/17 20:00 99.7 75 16 142/80 98 Mechanical Ventilator 28 05/31/17 20:00 28 05/31/17 19:37 76 16 97 Mechanical Ventilator 28 05/31/17 19:23 77 16 28 05/31/17 17:25 82 16 28 05/31/17 16:41 73 05/31/17 16:00 99.4 84 17 153/79 99 Mechanical Ventilator 28 05/31/17 16:00 28 05/31/17 15:50 83 18 99 Mechanical Ventilator 28 05/31/17 15:33 74 16 98 Mechanical Ventilator 28 05/31/17 15:33 28 05/31/17 15:30 75 16 28 05/31/17 13:00 75 16 28 Height (Feet): 5 Height (Inches): 0.00 Weight (Pounds): 217 HEENT: status post trach Respiratory/Chest: lungs clear Cardiovascular: normal rate, regular rhythm, no gallop/murmur Abdomen: soft, non tender, other - GT Extremities: other - + edema, right arm PICC Laboratory Tests Test 06/01/17 03:30 White Blood Count 14.8 K/UL (4.8-10.8) H Red Blood Count 2.47 M/UL (4.20-5.40) L Hemoglobin 7.8 G/DL (12.0-16.0) L Hematocrit 24.9 % (37.0-47.0) L Mean Corpuscular Volume 101 FL (80-99) H Mean Corpuscular Hemoglobin 31.7 PG (27.0-31.0) H Mean Corpuscular Hemoglobin Concent 31.5 G/DL (32.0-36.0) L Red Cell Distribution Width 27.8 % (11.6-14.8) H Platelet Count 311 K/UL (150-450) Mean Platelet Volume 6.8 FL (6.5-10.1) Neutrophils (%) (Auto) % (45.0-75.0) Lymphocytes (%) (Auto) % (20.0-45.0) Monocytes (%) (Auto) % (1.0-10.0) Eosinophils (%) (Auto) % (0.0-3.0) Basophils (%) (Auto) % (0.0-2.0) Differential Total Cells Counted 100 Neutrophils % (Manual) 84 % (45-75) H Lymphocytes % (Manual) 10 % (20-45) L Monocytes % (Manual) 3 % (1-10) Eosinophils % (Manual) 2 % (0-3) Basophils % (Manual) 0 % (0-2) Band Neutrophils 1 % (0-8) Platelet Estimate Adequate Platelet Morphology Normal Polychromasia 1+ Hypochromasia 3+ Anisocytosis 4+ Macrocytosis 1+ Sodium Level 145 MMOL/L (136-145) Potassium Level 2.7 MMOL/L (3.5-5.1) *L Chloride Level 103 MMOL/L (98-107) Carbon Dioxide Level 36 MMOL/L (21-32) H Anion Gap 6 mmol/L (5-15) Blood Urea Nitrogen 34 mg/dL (7-18) H Creatinine 1.1 MG/DL (0.55-1.30) Estimat Glomerular Filtration Rate 50.3 mL/min (>60) Glucose Level 173 MG/DL (74-106) H Uric Acid 4.8 MG/DL (2.6-7.2) Calcium Level 8.3 MG/DL (8.5-10.1) L Phosphorus Level 1.5 MG/DL (2.5-4.9) L Magnesium Level 1.8 MG/DL (1.8-2.4) Total Bilirubin 1.1 MG/DL (0.2-1.0) H Direct Bilirubin 0.3 MG/DL (0.0-0.3) Aspartate Amino Transf (AST/SGOT) 33 U/L (15-37) Alanine Aminotransferase (ALT/SGPT) 44 U/L (12-78) Alkaline Phosphatase 144 U/L (46-116) H C-Reactive Protein, Quantitative 3.2 mg/dL (0.00-0.90) H Pro-B-Type Natriuretic Peptide 3934 pg/mL (0-125) H Total Protein 5.4 G/DL (6.4-8.2) L Albumin 2.0 G/DL (3.4-5.0) L Globulin 3.4 g/dL Albumin/Globulin Ratio 0.6 (1.0-2.7) L ERIKA DICKERSON Jun 01, 2017 12:20"
--- NOTE | 2017-06-01 14:58 | General Progress Note ---
Assessment/Plan Assessment/Plan Assessment - Encephalopathy - Resp failure - Trach - dysphagia - PEG - abnormal LFT--> Improving - edema / anasarca - abd distention due to ascites - no SBP on tap - UTI/PNA - leukocytosis --> Improving - azotemia - pericardial effusion - marked thrombocytosis - poor Px Recommendations - continue TF - f/u hepatitis serologies --> Negative - hold off on GT change - check C Diff - will need periodic paracentesis - continue abx - I will return Sunday to see pt Subjective Allergies: Coded Allergies: OLANZAPINE (Verified Allergy, Severe, RESP FAILURE, 11/25/13) VANCOMYCIN (Verified Allergy, Severe, 11/25/13) PIPERACILLIN (Verified Allergy, Intermediate, HIVES, 11/25/13) TAZOBACTAM (Verified Allergy, Intermediate, HIVES, 11/25/13) Subjective d/w RN tolerating TF abd less distended LFT and WBC declining Objective Last 24 Hour Vital Signs Date Time Temp Pulse Resp B/P (MAP) Pulse Ox O2 Delivery O2 Flow Rate FiO2 06/01/17 14:41 98.3 78 16 146/81 100 Mechanical Ventilator 15.0 28 06/01/17 12:41 76 16 28 06/01/17 12:00 28 06/01/17 12:00 98.3 78 16 146/81 100 Mechanical Ventilator 28 06/01/17 11:58 Mechanical Ventilator 15.0 28 06/01/17 11:46 Mechanical Ventilator 15.0 28 06/01/17 11:37 79 16 99 Mechanical Ventilator 28 06/01/17 11:28 28 06/01/17 11:28 79 16 100 Mechanical Ventilator 06/01/17 11:26 80 16 28 06/01/17 09:26 83 16 28 06/01/17 08:00 28 06/01/17 08:00 98.1 82 16 136/81 99 Mechanical Ventilator 06/01/17 08:00 83 06/01/17 07:38 83 16 99 Mechanical Ventilator 28 06/01/17 07:24 81 16 100 Mechanical Ventilator 28 06/01/17 07:24 28 06/01/17 06:30 83 16 28 06/01/17 05:08 87 16 28 06/01/17 04:00 98.9 83 16 132/73 99 Mechanical Ventilator 28 06/01/17 04:00 84 06/01/17 04:00 87 16 97 Mechanical Ventilator 28 06/01/17 04:00 28 06/01/17 03:03 81 16 98 Mechanical Ventilator 28 06/01/17 03:01 81 16 28 06/01/17 00:27 86 16 28 06/01/17 00:26 84 16 99 Mechanical Ventilator 28 06/01/17 00:00 98.1 55 24 103/82 92 Room Air 06/01/17 00:00 28 06/01/17 00:00 81 05/31/17 23:34 77 16 97 Mechanical Ventilator 28 05/31/17 23:25 28 05/31/17 23:21 82 16 28 05/31/17 21:06 74 16 97 Mechanical Ventilator 28 05/31/17 20:59 74 16 28 05/31/17 20:00 75 05/31/17 20:00 99.7 75 16 142/80 98 Mechanical Ventilator 28 05/31/17 20:00 28 05/31/17 19:37 76 16 97 Mechanical Ventilator 28 05/31/17 19:23 77 16 28 05/31/17 17:25 82 16 28 05/31/17 16:41 73 05/31/17 16:00 99.4 84 17 153/79 99 Mechanical Ventilator 28 05/31/17 16:00 28 05/31/17 15:50 83 18 99 Mechanical Ventilator 28 05/31/17 15:33 74 16 98 Mechanical Ventilator 28 05/31/17 15:33 28 05/31/17 15:30 75 16 28 Intake and Output 06/01/17 06/02/17 19:00 07:00 Intake Total 211.251 ml Balance 211.251 ml IV Total 211.251 ml Laboratory Tests 06/01/17 03:30: White Blood Count 14.8H, Red Blood Count 2.47L, Hemoglobin 7.8L, Hematocrit 24.9L, Mean Corpuscular Volume 101H, Mean Corpuscular Hemoglobin 31.7H, Mean Corpuscular Hemoglobin Concent 31.5L, Red Cell Distribution Width 27.8H, Platelet Count 311, Mean Platelet Volume 6.8, Neutrophils (%) (Auto) , Lymphocytes (%) (Auto) , Monocytes (%) (Auto) , Eosinophils (%) (Auto) , Basophils (%) (Auto) , Differential Total Cells Counted 100, Neutrophils % ( Manual) 84H, Lymphocytes % (Manual) 10L, Monocytes % (Manual) 3, Eosinophils % ( Manual) 2, Basophils % (Manual) 0, Band Neutrophils 1, Platelet Estimate Adequate, Platelet Morphology Normal, Polychromasia 1+, Hypochromasia 3+, Anisocytosis 4+, Macrocytosis 1+, Sodium Level 145, Potassium Level 2.7*L, Chloride Level 103, Carbon Dioxide Level 36H, Anion Gap 6, Blood Urea Nitrogen 34H, Creatinine 1.1, Estimat Glomerular Filtration Rate 50.3, Glucose Level 173H , Uric Acid 4.8, Calcium Level 8.3L, Phosphorus Level 1.5L, Magnesium Level 1.8 , Total Bilirubin 1.1H, Direct Bilirubin 0.3, Aspartate Amino Transf (AST/SGOT) 33, Alanine Aminotransferase (ALT/SGPT) 44, Alkaline Phosphatase 144H, C- Reactive Protein, Quantitative 3.2H, Pro-B-Type Natriuretic Peptide 3934H, Total Protein 5.4L, Albumin 2.0L, Globulin 3.4, Albumin/Globulin Ratio 0.6L Height (Feet): 5 Height (Inches): 0.00 Weight (Pounds): 217 Objective Obese WW NCAT supple Chest: coarse BS RRR obese, firm and distended abd, (+) GT (++) edema / anasarca OBS JILL WHITNEY Jun 01, 2017 14:58
[2017-06-01] MEDS: Cefepime HCl 2 GM in D5W 55 ML IV SCH (20:46)
[2017-06-01] MEDS: Dyna-Hex 2% Top Sol 2oz TOPIC SCH (20:47)
[2017-06-01] MEDS: Epogen (for non ESRD use) SUBQ SCH (21:25)
[2017-06-02] VITALS (7 sets, daily range): BP systolic 102–155; BP diastolic 61–82
[2017-06-02] MEDS: metroNIDAZOLE 500mg tab GT SCH ×3 (03:09→20:00)
[2017-06-02] MEDS: Ipratropium 0.02% Inh Soln 2.5ml UD HHN SCH ×4 (03:26→23:22)
[2017-06-02] MEDS: Albuterol ud Inhalation HHN SCH ×4 (03:26→23:22)
[2017-06-02] MEDS: NovoLOG Insulin Flexpen SUBQ SCH ×3 (06:08→18:35)
--- NOTE | 2017-06-02 08:20 | General Progress Note ---
Assessment/Plan Assessment/Plan Assessment - Encephalopathy - Resp failure - Trach - dysphagia - PEG - abnormal LFT--> Improving - edema / anasarca - abd distention due to ascites - no SBP on tap - UTI/PNA - leukocytosis --> Improving - azotemia - pericardial effusion - marked thrombocytosis - poor Px Recommendations - continue TF - f/u hepatitis serologies --> Negative - hold off on GT change - check C Diff - will need periodic paracentesis - continue abx Subjective ROS Limited/Unobtainable: No Allergies: Coded Allergies: OLANZAPINE (Verified Allergy, Severe, RESP FAILURE, 11/25/13) VANCOMYCIN (Verified Allergy, Severe, 11/25/13) PIPERACILLIN (Verified Allergy, Intermediate, HIVES, 11/25/13) TAZOBACTAM (Verified Allergy, Intermediate, HIVES, 11/25/13) Objective Last 24 Hour Vital Signs Date Time Temp Pulse Resp B/P (MAP) Pulse Ox O2 Delivery O2 Flow Rate FiO2 06/02/17 07:38 28 06/02/17 07:38 68 16 100 Mechanical Ventilator 28 06/02/17 07:29 69 17 100 Mechanical Ventilator 28 06/02/17 07:27 69 16 28 06/02/17 05:10 78 16 28 06/02/17 04:00 79 06/02/17 04:00 98.1 79 16 119/63 98 Mechanical Ventilator 28 06/02/17 04:00 28 06/02/17 03:45 79 16 100 Mechanical Ventilator 06/02/17 03:45 98.7 75 16 131/69 98 Mechanical Ventilator 06/02/17 03:25 77 17 98 Mechanical Ventilator 28 06/02/17 03:25 77 17 28 06/02/17 03:25 28 06/02/17 00:50 79 16 28 06/02/17 00:00 82 06/02/17 00:00 98.6 82 16 125/72 98 Mechanical Ventilator 06/02/17 00:00 28 06/01/17 23:05 77 16 100 Mechanical Ventilator 28 06/01/17 22:50 76 16 98 Mechanical Ventilator 28 06/01/17 22:50 28 06/01/17 22:50 76 16 28 06/01/17 21:11 75 16 28 06/01/17 20:00 76 06/01/17 20:00 28 06/01/17 20:00 98.5 77 16 147/83 100 Mechanical Ventilator 28 06/01/17 19:49 76 16 100 Mechanical Ventilator 28 06/01/17 19:33 76 16 99 Mechanical Ventilator 28 06/01/17 19:33 28 06/01/17 19:30 76 16 28 06/01/17 17:16 78 16 28 06/01/17 16:21 83 16 99 Mechanical Ventilator 28 06/01/17 16:11 28 06/01/17 16:11 81 16 100 Mechanical Ventilator 28 06/01/17 16:00 28 06/01/17 16:00 98.8 73 18 138/75 100 Mechanical Ventilator 28 06/01/17 16:00 72 06/01/17 15:00 72 16 28 06/01/17 14:41 98.3 78 16 146/81 100 Mechanical Ventilator 15.0 28 06/01/17 12:41 76 16 28 06/01/17 12:00 75 06/01/17 12:00 28 06/01/17 12:00 98.3 78 16 146/81 100 Mechanical Ventilator 28 06/01/17 11:58 Mechanical Ventilator 15.0 28 06/01/17 11:46 Mechanical Ventilator 15.0 28 06/01/17 11:37 79 16 99 Mechanical Ventilator 28 06/01/17 11:28 28 06/01/17 11:28 79 16 100 Mechanical Ventilator 28 06/01/17 11:26 80 16 28 06/01/17 09:26 83 16 28 Height (Feet): 5 Height (Inches): 0.00 Weight (Pounds): 224 General Appearance: no apparent distress EENT: normal ENT inspection Neck: supple Cardiovascular: normal rate Respiratory/Chest: decreased breath sounds Abdomen: normal bowel sounds, non tender, soft Extremities: non-tender MARTÍN SANTOS Jun 02, 2017 08:20
[2017-06-02] MEDS: Atenolol 12.5mg GT SCH (09:07)
[2017-06-02] MEDS: Amiodarone 200mg tab GT SCH ×2 (09:07→18:31)
[2017-06-02 09:08] LABS: ALANINE AMINOTRANSFERASE 31 U/L (12-78); ALBUMIN/GLOBULIN RATIO 0.5 (1.0-2.7); ANION GAP 7 mmol/L (5-15); ASPARTATE AMINO TRANSFERASE 23 U/L (15-37); CALCIUM 8.1 MG/DL (8.5-10.1); CARBON DIOXIDE 31 MMOL/L (21-32); CHLORIDE 106 MMOL/L (98-107); CREATININE 1.1 MG/DL (0.55-1.30); CRP QUANT 4.1 mg/dL (0.00-0.90); GLOMERULAR FILTRATION RATE 50.3 mL/min (>60); MAGNESIUM 1.9 MG/DL (1.8-2.4); PHOSPHORUS 2.7 MG/DL (2.5-4.9); POTASSIUM 4.7 MMOL/L (3.5-5.1); SODIUM 144 MMOL/L (136-145); THYROID STIMULATING HORMONE 7.996 uiU/mL (0.358-3.740); TOTAL PROTEIN 5.9 G/DL (6.4-8.2); URIC ACID 4.6 MG/DL (2.6-7.2)
--- NOTE | 2017-06-02 09:12 | Nephrology Progress Note ---
Assessment/Plan Problem List: (1) Acute renal failure Assessment: urine out put higher (2) Sepsis (3) UTI (urinary tract infection) (4) Tracheostomy dependence (5) Hypotension Assessment urine out put rising 450 past 24 h H&H lower K is low Last HD 05/30 First Dialysed 05/26 and 850 cc removed- Ascitic tap 2 liter removed 05/25 -. Acute renal failure due to ? sepsis , intravascular volume depletion, low BP... Urine out put increasing -. Hypoalbuminemia: - Increase loss: NS - Decrease production: Nutritional -. Shock, sepsis, pneumonia, pericardial effusion. -. History of hypertension, now with low blood pressure. -. Hyperkalemia. improved -. Hyponatremia. improved -. Prerenal azotemia. -. Respiratory failure with tracheostomy. -. Anasarca with ascites. due to low Albumin -. HypoThyroidism . Plan today's labs pending transfused one unit , waiting for second unit transfusion K and phos supplement as needed No dialysis , Urine out put higher- 450 last 24 h Will manage with Lasix PER ORDERS Diet to Nepro- Antibiotics- IV protonix Pulmonary support- Keep BP in check, midodrine when needed Monitor renal parameters- Avoid nephrotoxics per orders talked to SOREN connors pet care technician and Dr De León 05/23 Long phone conversation with sister who requests transfer to [facility] 05/23 discussed with PHIL Fernandez Subjective ROS Limited/Unobtainable: Yes Objective Objective Last 24 Hour Vital Signs Date Time Temp Pulse Resp B/P (MAP) Pulse Ox O2 Delivery O2 Flow Rate FiO2 06/02/17 08:51 72 16 28 06/02/17 07:38 28 06/02/17 07:38 68 16 100 Mechanical Ventilator 06/02/17 07:29 69 17 100 Mechanical Ventilator 06/02/17 07:27 69 16 28 06/02/17 05:10 78 16 28 06/02/17 04:00 79 06/02/17 04:00 98.1 79 16 119/63 98 Mechanical Ventilator 06/02/17 04:00 28 06/02/17 03:45 79 16 100 Mechanical Ventilator 06/02/17 03:45 98.7 75 16 131/69 98 Mechanical Ventilator 06/02/17 03:25 77 17 98 Mechanical Ventilator 06/02/17 03:25 77 17 28 06/02/17 03:25 28 06/02/17 00:50 79 16 28 06/02/17 00:00 82 06/02/17 00:00 98.6 82 16 125/72 98 Mechanical Ventilator 28 06/02/17 00:00 28 06/01/17 23:05 77 16 100 Mechanical Ventilator 28 06/01/17 22:50 76 16 98 Mechanical Ventilator 28 06/01/17 22:50 28 06/01/17 22:50 76 16 28 06/01/17 21:11 75 16 28 06/01/17 20:00 76 06/01/17 20:00 28 06/01/17 20:00 98.5 77 16 147/83 100 Mechanical Ventilator 28 06/01/17 19:49 76 16 100 Mechanical Ventilator 28 06/01/17 19:33 76 16 99 Mechanical Ventilator 28 06/01/17 19:33 28 06/01/17 19:30 76 16 28 06/01/17 17:16 78 16 28 06/01/17 16:21 83 16 99 Mechanical Ventilator 28 06/01/17 16:11 28 06/01/17 16:11 81 16 100 Mechanical Ventilator 28 06/01/17 16:00 28 06/01/17 16:00 98.8 73 18 138/75 100 Mechanical Ventilator 28 06/01/17 16:00 72 06/01/17 15:00 72 16 28 06/01/17 14:41 98.3 78 16 146/81 100 Mechanical Ventilator 15.0 28 06/01/17 12:41 76 16 28 06/01/17 12:00 75 06/01/17 12:00 28 06/01/17 12:00 98.3 78 16 146/81 100 Mechanical Ventilator 28 06/01/17 11:58 Mechanical Ventilator 15.0 28 06/01/17 11:46 Mechanical Ventilator 15.0 28 06/01/17 11:37 79 16 99 Mechanical Ventilator 28 06/01/17 11:28 28 06/01/17 11:28 79 16 100 Mechanical Ventilator 28 06/01/17 11:26 80 16 28 06/01/17 09:26 83 16 28 Laboratory Tests 06/02/17 08:09: White Blood Count [Pending], Red Blood Count [Pending], Hemoglobin [Pending], Hematocrit [Pending], Mean Corpuscular Volume [Pending], Mean Corpuscular Hemoglobin [Pending], Mean Corpuscular Hemoglobin Concent [Pending], Red Cell Distribution Width [Pending], Platelet Count [Pending], Mean Platelet Volume [ Pending], Neutrophils (%) (Auto) [Pending], Lymphocytes (%) (Auto) [Pending], Monocytes (%) (Auto) [Pending], Eosinophils (%) (Auto) [Pending], Basophils (%) (Auto) [Pending], Sodium Level 144, Potassium Level 4.7#, Chloride Level 106, Carbon Dioxide Level 31, Anion Gap 7, Blood Urea Nitrogen 43H, Creatinine 1.1, Estimat Glomerular Filtration Rate 50.3, Glucose Level 155H, Uric Acid 4.6, Calcium Level 8.1L, Phosphorus Level 2.7, Magnesium Level 1.9, Total Bilirubin 0.9, Gamma Glutamyl Transpeptidase 328H, Aspartate Amino Transf (AST/SGOT) 23, Alanine Aminotransferase (ALT/SGPT) 31, Alkaline Phosphatase 157H, C-Reactive Protein, Quantitative 4.1H, Pro-B-Type Natriuretic Peptide 3405H, Total Protein 5.9L, Albumin 2.0L, Globulin 3.9, Albumin/Globulin Ratio 0.5L, Thyroid Stimulating Hormone (TSH) 7.996H Height (Feet): 5 Height (Inches): 0.00 Weight (Pounds): 224 General Appearance: no apparent distress Respiratory/Chest: decreased breath sounds Abdomen: soft Objective no other changes QIANA SALGADO Jun 02, 2017 09:12
[2017-06-02] MEDS: [UNRECOGNIZED DRUG - OTHER] BOTH EYES SCH ×4 (09:14→22:09)
[2017-06-02] MEDS: [UNRECOGNIZED DRUG - OTHER] ORAL SCH ×2 (09:14→18:00)
[2017-06-02] MEDS: SYSTANE ULTRA BOTH EYES SCH ×4 (09:14→22:08)
[2017-06-02] MEDS: Heparin 5000 units/ml inj SUBQ SCH ×2 (09:14→22:07)
[2017-06-02 09:16] LABS: BASOPHILS % (AUTO) 0.9 % (0.0-2.0); EOSINOPHILS % (AUTO) 2.7 % (0.0-3.0); LYMPHOCYTES % (AUTO) 9.7 % (20.0-45.0); MEAN CORPUSCULAR VOLUME 100 FL (80-99); MEAN PLATELET VOLUME 7.7 FL (6.5-10.1); MONOCYTES % (AUTO) 5.7 % (1.0-10.0); PLATELET COUNT 287 K/UL (150-450); RED BLOOD COUNT 2.92 M/UL (4.20-5.40); RED CELL DISTRIBUTION WIDTH 26.6 % (11.6-14.8); WHITE BLOOD COUNT 13.9 K/UL (4.8-10.8)
--- NOTE | 2017-06-02 09:43 | Pulmonology Progress Note ---
Assessment/Plan Assessment/Plan IMPRESSION respiratory failure possible UTI sepsis ARF/CRF hyperkalemia pericardial effusion possible renal cyst vs mass hypertension (now with normal BP off meds) chronic encephalopathy hypothyroidism diabetes possible cirrhosis atrial fib, paroxysmal hyperuricemia pain possible ascites pericardial fluid collection anasarca PLAN ventilator management- as is monitor acid base for change- ABG again ordered monitor PIP CT chest to evaluate pericardial fluid collection again sliding scale and monitor sugars- sugars controlled monitor for residuals GT care GI/renal/ID/cards evaluation monitor clinically antibiotics noted- ID discussed WBC improved complete transfusion monitor off HD hope to dc home soon medications/laboratory data/nursing notes reviewed in detail note reviewed and edited care discussed with RN and RT Subjective ROS Limited/Unobtainable: Yes Allergies: Coded Allergies: OLANZAPINE (Verified Allergy, Severe, RESP FAILURE, 11/25/13) VANCOMYCIN (Verified Allergy, Severe, 11/25/13) PIPERACILLIN (Verified Allergy, Intermediate, HIVES, 11/25/13) TAZOBACTAM (Verified Allergy, Intermediate, HIVES, 11/25/13) Subjective overnight events reviewed labs noted doing better increase in UO d/w renal CT ordered Objective Last 24 Hour Vital Signs Date Time Temp Pulse Resp B/P (MAP) Pulse Ox O2 Delivery O2 Flow Rate FiO2 06/02/17 08:51 72 16 28 06/02/17 07:38 28 06/02/17 07:38 68 16 100 Mechanical Ventilator 06/02/17 07:29 69 17 100 Mechanical Ventilator 06/02/17 07:27 69 16 28 06/02/17 05:10 78 16 28 06/02/17 04:00 79 06/02/17 04:00 98.1 79 16 119/63 98 Mechanical Ventilator 06/02/17 04:00 28 06/02/17 03:45 79 16 100 Mechanical Ventilator 06/02/17 03:45 98.7 75 16 131/69 98 Mechanical Ventilator 06/02/17 03:25 77 17 98 Mechanical Ventilator 28 06/02/17 03:25 77 17 28 06/02/17 03:25 28 06/02/17 00:50 79 16 28 06/02/17 00:00 82 06/02/17 00:00 98.6 82 16 125/72 98 Mechanical Ventilator 28 06/02/17 00:00 28 06/01/17 23:05 77 16 100 Mechanical Ventilator 28 06/01/17 22:50 76 16 98 Mechanical Ventilator 28 06/01/17 22:50 28 06/01/17 22:50 76 16 28 06/01/17 21:11 75 16 28 06/01/17 20:00 76 06/01/17 20:00 28 06/01/17 20:00 98.5 77 16 147/83 100 Mechanical Ventilator 28 06/01/17 19:49 76 16 100 Mechanical Ventilator 28 06/01/17 19:33 76 16 99 Mechanical Ventilator 28 06/01/17 19:33 28 06/01/17 19:30 76 16 28 06/01/17 17:16 78 16 28 06/01/17 16:21 83 16 99 Mechanical Ventilator 28 06/01/17 16:11 28 06/01/17 16:11 81 16 100 Mechanical Ventilator 28 06/01/17 16:00 28 06/01/17 16:00 98.8 73 18 138/75 100 Mechanical Ventilator 28 06/01/17 16:00 72 06/01/17 15:00 72 16 28 06/01/17 14:41 98.3 78 16 146/81 100 Mechanical Ventilator 15.0 28 06/01/17 12:41 76 16 28 06/01/17 12:00 75 06/01/17 12:00 28 06/01/17 12:00 98.3 78 16 146/81 100 Mechanical Ventilator 28 06/01/17 11:58 Mechanical Ventilator 15.0 28 06/01/17 11:46 Mechanical Ventilator 15.0 28 06/01/17 11:37 79 16 99 Mechanical Ventilator 28 06/01/17 11:28 28 06/01/17 11:28 79 16 100 Mechanical Ventilator 28 06/01/17 11:26 80 16 28 Objective WDWN female chronically ill NAD coarse breath sounds bilaterally without rhonchi or wheeze PIP reviewed and higher [id number] without MRG NABS nontender no HSM; protuberant; GT- no CC some edema diffusely short neck unresponsive reviewed and edited Laboratory Tests 06/02/17 08:09: White Blood Count 13.9H, Red Blood Count 2.92L, Hemoglobin 9.0L, Hematocrit 29.2L, Mean Corpuscular Volume 100H, Mean Corpuscular Hemoglobin 31.0, Mean Corpuscular Hemoglobin Concent 31.0L, Red Cell Distribution Width 26.6H, Platelet Count 287, Mean Platelet Volume 7.7, Neutrophils (%) (Auto) 81.0H, Lymphocytes (%) (Auto) 9.7L, Monocytes (%) (Auto) 5.7, Eosinophils (%) (Auto) 2.7, Basophils (%) (Auto) 0.9, Sodium Level 144, Potassium Level 4.7#, Chloride Level 106, Carbon Dioxide Level 31, Anion Gap 7, Blood Urea Nitrogen 43H, Creatinine 1.1, Estimat Glomerular Filtration Rate 50.3, Glucose Level 155H, Uric Acid 4.6, Calcium Level 8.1L, Phosphorus Level 2.7, Magnesium Level 1.9, Total Bilirubin 0.9, Gamma Glutamyl Transpeptidase 328H, Aspartate Amino Transf (AST/SGOT) 23, Alanine Aminotransferase (ALT/SGPT) 31, Alkaline Phosphatase 157H , C-Reactive Protein, Quantitative 4.1H, Pro-B-Type Natriuretic Peptide 3405H, Total Protein 5.9L, Albumin 2.0L, Globulin 3.9, Albumin/Globulin Ratio 0.5L, Thyroid Stimulating Hormone (TSH) 7.996H Current Medications Medications (Trade) Dose Ordered Sig/Alex Route PRN Reason Start Time Stop Time Status Last Admin Dose Admin Acetaminophen (Tylenol) 650 mg Q6H PRN GT Mild Pain/Temp > 100.5 05/30/17 01:15 06/22/17 19:14 Albuterol Sulfate (Proventil) 2.5 mg Q4HRT HHN 05/29/17 23:00 06/02/17 09:59 06/02/17 07:24 Allopurinol (Allopurinol) 300 mg DAILY GT 05/30/17 09:00 06/24/17 08:59 06/02/17 09:15 Amiodarone HCl (Cordarone) 200 mg BID GT 06/01/17 09:00 06/26/17 20:59 06/02/17 09:07 Atenolol (Tenormin) 12.5 mg DAILY GT 05/30/17 09:00 06/24/17 10:59 06/02/17 09:07 Bisacodyl (Dulcolax) 5 mg DAILYPRN PRN RECTAL Constipation 05/29/17 20:30 06/22/17 20:29 Cefepime HCl 2 gm/ Dextrose 55 ml @ 110 mls/hr Q24H IV 05/30/17 21:00 06/06/17 20:59 06/01/17 20:46 Chlorhexidine Gluconate (Rubina-Hex 2%) 1 applic DAILY@2000 TOPIC 05/29/17 20:00 06/24/17 19:59 06/01/17 20:47 Dextrose (Dextrose 50%) STAT PRN IV Hypoglycemia 05/30/17 08:30 06/23/17 08:29 Epoetin Amadou (Procrit (for non ESRD use)) 10,000 units MON-WED-SUN SUBQ 05/30/17 21:00 06/24/17 20:59 06/01/17 21:25 Furosemide (Lasix) 40 mg ONCE PRN IV GIVE BETWEEN TRANSFUSIONS 06/02/17 09:00 06/02/17 16:00 06/02/17 09:07 Heparin Sodium (Porcine) (Heparin 5000 units/ml) 5,000 units EVERY 12 HOURS SUBQ 05/29/17 21:00 06/22/17 08:59 06/02/17 09:14 Insulin Aspart (NovoLOG) EVERY 6 HOURS SUBQ 05/30/17 00:00 06/23/17 11:29 06/02/17 06:08 Ipratropium [place] (Atrovent) 500 mcg Q4HRT HHN 05/29/17 23:00 06/02/17 09:59 06/02/17 07:24 Lansoprazole (Prevacid) 30 mg DAILY GT 05/31/17 09:00 06/30/17 08:59 06/02/17 09:07 Levothyroxine Sodium (Synthroid) 75 mcg ACBREAKFAST GT 05/30/17 06:30 06/21/17 06:29 06/02/17 06:02 Levothyroxine Sodium (Synthroid) 100 mcg ACBREAKFAST GT 05/30/17 06:30 06/21/17 06:29 06/02/17 06:02 Metronidazole (Flagyl) 500 mg Q8H GT 06/01/17 20:00 06/04/17 23:59 06/02/17 03:09 Midodrine (Pro-Amatine) 5 mg BID ORAL 05/31/17 09:00 06/27/17 12:59 06/02/17 09:07 Patient Own Medication (Patient's Own Med) 1 ea BID ORAL 05/30/17 09:00 06/28/17 17:59 06/02/17 09:14 Patient Own Medication (Patient's Own Med) 1 ea QID BOTH EYES 05/29/17 21:00 06/28/17 17:59 06/02/17 09:14 Patient Own Medication (Patient's Own Med) 1 ea QID BOTH EYES 05/29/17 21:00 06/22/17 20:59 06/02/17 09:14 ANTIONETTE RODRIGUEZ Jun 02, 2017 09:43
--- NOTE | 2017-06-02 11:04 | Infectious Diseases Prog Note ---
"Assessment/Plan Assessment/Plan antibiotics : cefepime, flagyl A 1. klebsiella UTI s/p rx 2. leucocytosis improving 3. respiratory failure 4. DM 5. HTN 6. anoxic brain injury 7. pericardial effusion 8. serratia | pseudomonas pneumonia P 1. continue cefepime, flagyl 3 more days 2. will follow up cultures Subjective ROS Limited/Unobtainable: Yes Allergies: Coded Allergies: OLANZAPINE (Verified Allergy, Severe, RESP FAILURE, 11/25/13) VANCOMYCIN (Verified Allergy, Severe, 11/25/13) PIPERACILLIN (Verified Allergy, Intermediate, HIVES, 11/25/13) TAZOBACTAM (Verified Allergy, Intermediate, HIVES, 11/25/13) Objective Vital Signs Last 24 Hour Vital Signs Date Time Temp Pulse Resp B/P (MAP) Pulse Ox O2 Delivery O2 Flow Rate FiO2 06/02/17 10:37 69 16 28 06/02/17 08:51 72 16 28 06/02/17 07:38 28 06/02/17 07:38 68 16 100 Mechanical Ventilator 06/02/17 07:29 69 17 100 Mechanical Ventilator 28 06/02/17 07:27 69 16 28 06/02/17 05:10 78 16 28 06/02/17 04:00 79 06/02/17 04:00 98.1 79 16 119/63 98 Mechanical Ventilator 06/02/17 04:00 28 06/02/17 03:45 79 16 100 Mechanical Ventilator 06/02/17 03:45 98.7 75 16 131/69 98 Mechanical Ventilator 28 06/02/17 03:25 77 17 98 Mechanical Ventilator 28 06/02/17 03:25 77 17 28 06/02/17 03:25 28 06/02/17 00:50 79 16 28 06/02/17 00:00 82 06/02/17 00:00 98.6 82 16 125/72 98 Mechanical Ventilator 06/02/17 00:00 28 06/01/17 23:05 77 16 100 Mechanical Ventilator 28 06/01/17 22:50 76 16 98 Mechanical Ventilator 28 06/01/17 22:50 28 06/01/17 22:50 76 16 28 06/01/17 21:11 75 16 28 06/01/17 20:00 76 06/01/17 20:00 28 06/01/17 20:00 98.5 77 16 147/83 100 Mechanical Ventilator 28 06/01/17 19:49 76 16 100 Mechanical Ventilator 28 06/01/17 19:33 76 16 99 Mechanical Ventilator 28 06/01/17 19:33 28 06/01/17 19:30 76 16 28 06/01/17 17:16 78 16 28 06/01/17 16:21 83 16 99 Mechanical Ventilator 28 06/01/17 16:11 28 06/01/17 16:11 81 16 100 Mechanical Ventilator 28 06/01/17 16:00 28 06/01/17 16:00 98.8 73 18 138/75 100 Mechanical Ventilator 28 06/01/17 16:00 72 06/01/17 15:00 72 16 28 06/01/17 14:41 98.3 78 16 146/81 100 Mechanical Ventilator 15.0 28 06/01/17 12:41 76 16 28 06/01/17 12:00 75 06/01/17 12:00 28 06/01/17 12:00 98.3 78 16 146/81 100 Mechanical Ventilator 28 06/01/17 11:58 Mechanical Ventilator 15.0 28 06/01/17 11:46 Mechanical Ventilator 15.0 28 06/01/17 11:37 79 16 99 Mechanical Ventilator 28 06/01/17 11:28 28 06/01/17 11:28 79 16 100 Mechanical Ventilator 28 06/01/17 11:26 80 16 28 Height (Feet): 5 Height (Inches): 0.00 Weight (Pounds): 224 HEENT: status post trach Respiratory/Chest: lungs clear Cardiovascular: normal rate, regular rhythm, no gallop/murmur Abdomen: soft, non tender, other - GT Extremities: other - + edema, right arm PICC Laboratory Tests Test 06/02/17 08:09 White Blood Count 13.9 K/UL (4.8-10.8) H Red Blood Count 2.92 M/UL (4.20-5.40) L Hemoglobin 9.0 G/DL (12.0-16.0) L Hematocrit 29.2 % (37.0-47.0) L Mean Corpuscular Volume 100 FL (80-99) H Mean Corpuscular Hemoglobin 31.0 PG (27.0-31.0) Mean Corpuscular Hemoglobin Concent 31.0 G/DL (32.0-36.0) L Red Cell Distribution Width 26.6 % (11.6-14.8) H Platelet Count 287 K/UL (150-450) Mean Platelet Volume 7.7 FL (6.5-10.1) Neutrophils (%) (Auto) 81.0 % (45.0-75.0) H Lymphocytes (%) (Auto) 9.7 % (20.0-45.0) L Monocytes (%) (Auto) 5.7 % (1.0-10.0) Eosinophils (%) (Auto) 2.7 % (0.0-3.0) Basophils (%) (Auto) 0.9 % (0.0-2.0) Sodium Level 144 MMOL/L (136-145) Potassium Level 4.7 MMOL/L (3.5-5.1) # Chloride Level 106 MMOL/L (98-107) Carbon Dioxide Level 31 MMOL/L (21-32) Anion Gap 7 mmol/L (5-15) Blood Urea Nitrogen 43 mg/dL (7-18) H Creatinine 1.1 MG/DL (0.55-1.30) Estimat Glomerular Filtration Rate 50.3 mL/min (>60) Glucose Level 155 MG/DL (74-106) H Uric Acid 4.6 MG/DL (2.6-7.2) Calcium Level 8.1 MG/DL (8.5-10.1) L Phosphorus Level 2.7 MG/DL (2.5-4.9) Magnesium Level 1.9 MG/DL (1.8-2.4) Total Bilirubin 0.9 MG/DL (0.2-1.0) Gamma Glutamyl Transpeptidase 328 U/L (5-85) H Aspartate Amino Transf (AST/SGOT) 23 U/L (15-37) Alanine Aminotransferase (ALT/SGPT) 31 U/L (12-78) Alkaline Phosphatase 157 U/L (46-116) H C-Reactive Protein, Quantitative 4.1 mg/dL (0.00-0.90) H Pro-B-Type Natriuretic Peptide 3405 pg/mL (0-125) H Total Protein 5.9 G/DL (6.4-8.2) L Albumin 2.0 G/DL (3.4-5.0) L Globulin 3.9 g/dL Albumin/Globulin Ratio 0.5 (1.0-2.7) L Thyroid Stimulating Hormone (TSH) 7.996 uiU/mL (0.358-3.740) ERIKA DICKERSON Jun 02, 2017 11:04"
--- NOTE | 2017-06-02 11:48 | General Progress Note ---
Assessment/Plan Problem List: (1) Sepsis ICD Codes: A41.9 - Sepsis, unspecified organism SNOMED: 33901736 (2) Pneumonia ICD Codes: J18.9 - Pneumonia, unspecified organism SNOMED: 406043058 (3) Acute renal failure ICD Codes: N17.9 - Acute kidney failure, unspecified SNOMED: 08326339 (4) Pericardial effusion ICD Codes: I31.3 - Pericardial effusion (noninflammatory) SNOMED: 737290854 (5) Tracheostomy malfunction ICD Codes: J95.03 - Malfunction of tracheostomy stoma SNOMED: 46205064 (6) UTI (urinary tract infection) ICD Codes: N39.0 - Urinary tract infection, site not specified SNOMED: 04105196, 264192747 Qualifiers: Qualified Codes: N30.01 - Acute cystitis with hematuria Status: stable, progressing Assessment/Plan HD per renal iv abx monitor wbc- trending down vent support resp rx monitor renal fxn HD per renal poor prognosis. d/w caregiver. transfuse dnr remains critical and guarded prognosis remains poor percardial effusion better- no need to transfer Subjective ROS Limited/Unobtainable: No Constitutional: Reports: malaise, weakness HEENT: Reports: no symptoms Cardiovascular: Reports: edema Respiratory: Reports: no symptoms Gastrointestinal/Abdominal: Reports: abdomen distended Genitourinary: Reports: no symptoms Neurologic/Psychiatric: Reports: pre-existing deficit Endocrine: Reports: no symptoms Hematologic/Lymphatic: Reports: anemia Allergies: Coded Allergies: OLANZAPINE (Verified Allergy, Severe, RESP FAILURE, 11/25/13) VANCOMYCIN (Verified Allergy, Severe, 11/25/13) PIPERACILLIN (Verified Allergy, Intermediate, HIVES, 11/25/13) TAZOBACTAM (Verified Allergy, Intermediate, HIVES, 11/25/13) All Systems: reviewed and negative except above Subjective no events. d/w wreath and gar[employer] maker hand at the bedside. intermittent afib. still with poor uop. decrease h/h noted. no bleeding noted. Objective Last 24 Hour Vital Signs Date Time Temp Pulse Resp B/P (MAP) Pulse Ox O2 Delivery O2 Flow Rate FiO2 06/02/17 10:37 69 16 28 06/02/17 08:51 72 16 28 06/02/17 07:38 28 06/02/17 07:38 68 16 100 Mechanical Ventilator 28 06/02/17 07:29 69 17 100 Mechanical Ventilator 28 06/02/17 07:27 69 16 28 06/02/17 05:10 78 16 28 06/02/17 04:00 79 06/02/17 04:00 98.1 79 16 119/63 98 Mechanical Ventilator 28 06/02/17 04:00 28 06/02/17 03:45 79 16 100 Mechanical Ventilator 28 06/02/17 03:45 98.7 75 16 131/69 98 Mechanical Ventilator 28 06/02/17 03:25 77 17 98 Mechanical Ventilator 28 06/02/17 03:25 77 17 28 06/02/17 03:25 28 06/02/17 00:50 79 16 28 06/02/17 00:00 82 06/02/17 00:00 98.6 82 16 125/72 98 Mechanical Ventilator 28 06/02/17 00:00 28 06/01/17 23:05 77 16 100 Mechanical Ventilator 28 06/01/17 22:50 76 16 98 Mechanical Ventilator 28 06/01/17 22:50 28 06/01/17 22:50 76 16 28 06/01/17 21:11 75 16 28 06/01/17 20:00 76 06/01/17 20:00 28 06/01/17 20:00 98.5 77 16 147/83 100 Mechanical Ventilator 28 06/01/17 19:49 76 16 100 Mechanical Ventilator 28 06/01/17 19:33 76 16 99 Mechanical Ventilator 28 06/01/17 19:33 28 06/01/17 19:30 76 16 28 06/01/17 17:16 78 16 28 06/01/17 16:21 83 16 99 Mechanical Ventilator 28 06/01/17 16:11 28 06/01/17 16:11 81 16 100 Mechanical Ventilator 28 06/01/17 16:00 28 06/01/17 16:00 98.8 73 18 138/75 100 Mechanical Ventilator 28 06/01/17 16:00 72 06/01/17 15:00 72 16 28 06/01/17 14:41 98.3 78 16 146/81 100 Mechanical Ventilator 15.0 28 06/01/17 12:41 76 16 28 06/01/17 12:00 75 06/01/17 12:00 28 06/01/17 12:00 98.3 78 16 146/81 100 Mechanical Ventilator 28 06/01/17 11:58 Mechanical Ventilator 15.0 28 06/01/17 11:46 Mechanical Ventilator 15.0 28 Laboratory Tests 06/02/17 08:09: White Blood Count 13.9H, Red Blood Count 2.92L, Hemoglobin 9.0L, Hematocrit 29.2L, Mean Corpuscular Volume 100H, Mean Corpuscular Hemoglobin 31.0, Mean Corpuscular Hemoglobin Concent 31.0L, Red Cell Distribution Width 26.6H, Platelet Count 287, Mean Platelet Volume 7.7, Neutrophils (%) (Auto) 81.0H, Lymphocytes (%) (Auto) 9.7L, Monocytes (%) (Auto) 5.7, Eosinophils (%) (Auto) 2.7, Basophils (%) (Auto) 0.9, Sodium Level 144, Potassium Level 4.7#, Chloride Level 106, Carbon Dioxide Level 31, Anion Gap 7, Blood Urea Nitrogen 43H, Creatinine 1.1, Estimat Glomerular Filtration Rate 50.3, Glucose Level 155H, Uric Acid 4.6, Calcium Level 8.1L, Phosphorus Level 2.7, Magnesium Level 1.9, Total Bilirubin 0.9, Gamma Glutamyl Transpeptidase 328H, Aspartate Amino Transf (AST/SGOT) 23, Alanine Aminotransferase (ALT/SGPT) 31, Alkaline Phosphatase 157H , C-Reactive Protein, Quantitative 4.1H, Pro-B-Type Natriuretic Peptide 3405H, Total Protein 5.9L, Albumin 2.0L, Globulin 3.9, Albumin/Globulin Ratio 0.5L, Thyroid Stimulating Hormone (TSH) 7.996H Height (Feet): 5 Height (Inches): 0.00 Weight (Pounds): 224 Objective General Appearance: WD/WN, alert Neck: supple Cardiovascular: regular rhythm Respiratory/Chest: lungs clear Abdomen: hypoactive bowel sounds, distended Edema: severe edema Neurologic: unresponsive OCHOA BISWAS Jun 02, 2017 11:48
[2017-06-02] MEDS ORDERED: Albuterol/Ipratropium 3ml neb HHN SCH (15:00)
[2017-06-02] MEDS ORDERED: 1/2 NS 1000ml IV ONE (17:20)
[2017-06-02] MEDS ORDERED: Sterile Water Irrig 1000ml IRRIG ONE (17:20)
[2017-06-02] MEDS ORDERED: NS 500ML ONE (17:20)
[2017-06-02] MEDS ORDERED: Tubing Blood Filter IV ONE (17:20)
[2017-06-02] MEDS ORDERED: Ipratropium 0.02% Inh Soln 2.5ml UD ONE (19:18)
[2017-06-02] MEDS ORDERED: Albuterol ud Inhalation ONE (19:18)
[2017-06-02] MEDS: Dyna-Hex 2% Top Sol 2oz TOPIC SCH (22:05)
[2017-06-02] MEDS: Cefepime HCl 2 GM in D5W 55 ML IV SCH (22:06)
[2017-06-03] VITALS: BP 148/75
[2017-06-03] MEDS: NovoLOG Insulin Flexpen SUBQ SCH ×4 (00:26→18:37)
--- NOTE | 2017-06-03 02:00 | Progress Note ---
DATE: 06/01/2017 CARDIOLOGY PROGRESS NOTE Late entry for 06/01/2017. SUBJECTIVE: Repeat echocardiogram was reviewed. Fluid collection is falsely external and is not of any hemodynamic consequence. It has slightly diminished since the prior echocardiogram. OBJECTIVE: VITAL SIGNS: Blood pressure 132/72, pulse 83, respirations 16. Monitored rhythm sinus with rare atrial fibrillation. LUNGS: Moderate rhonchi. HEART: Regular rhythm and rate. Normal S1, S2. ABDOMEN: Obese. EXTREMITIES: With 1+ dependent edema. LABORATORY DATA: White count 14.8, hemoglobin 7.8. Sodium 145, potassium 3.7, bicarbonate 36, BUN 34, creatinine 1.1, albumin 2, magnesium 1.8. IMPRESSION: 1. Hypokalemia. 2. Severe anemia. 3. Acute on chronic renal failure, resolved. 4. Severe protein-calorie malnutrition. 5. Healthcare acquired pneumonia. 6. Ventilator-dependent respiratory failure. 7. Paroxysmal atrial fibrillation. 8. Pericardial fluid collection of no hemodynamic significance. PLAN: 1. Antimicrobials. 2. Ventilator support. 3. Monitor volume status and urine output. No need for pericardiocentesis or pericardial fluid collection drainage at this time. 4. Antibiotics per Infectious Disease school plant consultant. 5. Diuresis for volume management. Ramo Toure M.D. DR: MELY JOB#: [id number] CC:
[2017-06-03] MEDS: metroNIDAZOLE 500mg tab GT SCH ×3 (03:48→20:00)
[2017-06-03 04:02] VITALS: BP 156/91
[2017-06-03] MEDS: Albuterol ud Inhalation HHN SCH ×6 (04:12→23:52)
[2017-06-03] MEDS: Ipratropium 0.02% Inh Soln 2.5ml UD HHN SCH ×6 (04:12→23:52)
[2017-06-03 06:04] LABS: BASOPHILS % (AUTO) 1.4 % (0.0-2.0); EOSINOPHILS % (AUTO) 2.7 % (0.0-3.0); MEAN CORPUSCULAR HEMOGLOBIN 31.9 PG (27.0-31.0); MEAN CORPUSCULAR HGB CONC 32.4 G/DL (32.0-36.0); MEAN CORPUSCULAR VOLUME 98 FL (80-99); MEAN PLATELET VOLUME 8.6 FL (6.5-10.1); MONOCYTES % (AUTO) 4.9 % (1.0-10.0); PLATELET COUNT 321 K/UL (150-450); RED BLOOD COUNT 3.41 M/UL (4.20-5.40); WHITE BLOOD COUNT 14.5 K/UL (4.8-10.8)
[2017-06-03 06:17] LABS: ALANINE AMINOTRANSFERASE 30 U/L (12-78); ALBUMIN/GLOBULIN RATIO 0.5 (1.0-2.7); ANION GAP 5 mmol/L (5-15); ASPARTATE AMINO TRANSFERASE 21 U/L (15-37); CALCIUM 8.3 MG/DL (8.5-10.1); CARBON DIOXIDE 34 MMOL/L (21-32); CHLORIDE 104 MMOL/L (98-107); CREATININE 1.2 MG/DL (0.55-1.30); CRP QUANT 3.1 mg/dL (0.00-0.90); GLOMERULAR FILTRATION RATE 45.5 mL/min (>60); MAGNESIUM 1.7 MG/DL (1.8-2.4); PHOSPHORUS 2.3 MG/DL (2.5-4.9); SODIUM 143 MMOL/L (136-145); TOTAL PROTEIN 5.9 G/DL (6.4-8.2); URIC ACID 4.9 MG/DL (2.6-7.2)
--- NOTE | 2017-06-03 06:59 | General Progress Note ---
Assessment/Plan Assessment/Plan Assessment - Encephalopathy - Resp failure - Trach - dysphagia - PEG - abnormal LFT--> Improving - edema / anasarca - abd distention due to ascites - no SBP on tap - UTI/PNA - leukocytosis --> Improving - azotemia - pericardial effusion - marked thrombocytosis - poor Px Recommendations - continue TF - f/u hepatitis serologies --> Negative - hold off on GT change - check C Diff - will need periodic paracentesis - continue abx Subjective ROS Limited/Unobtainable: No Allergies: Coded Allergies: OLANZAPINE (Verified Allergy, Severe, RESP FAILURE, 11/25/13) VANCOMYCIN (Verified Allergy, Severe, 11/25/13) PIPERACILLIN (Verified Allergy, Intermediate, HIVES, 11/25/13) TAZOBACTAM (Verified Allergy, Intermediate, HIVES, 11/25/13) Objective Last 24 Hour Vital Signs Date Time Temp Pulse Resp B/P (MAP) Pulse Ox O2 Delivery O2 Flow Rate FiO2 06/03/17 05:17 64 16 28 06/03/17 04:21 62 16 100 Mechanical Ventilator 06/03/17 04:12 61 16 99 Mechanical Ventilator 06/03/17 04:02 98.7 60 16 156/91 99 Mechanical Ventilator 28 06/03/17 04:00 28 06/03/17 03:58 61 16 28 06/03/17 03:00 62 06/03/17 01:12 70 17 28 06/03/17 00:05 18 99 Mechanical Ventilator 28 06/03/17 00:00 98.6 62 16 148/75 99 Mechanical Ventilator 06/03/17 00:00 63 06/02/17 23:36 65 16 99 Mechanical Ventilator 06/02/17 23:22 62 16 99 Mechanical Ventilator 06/02/17 23:21 67 16 28 06/02/17 21:16 67 17 28 06/02/17 20:21 64 16 99 Mechanical Ventilator 06/02/17 20:12 63 16 99 Mechanical Ventilator 06/02/17 20:05 18 99 Mechanical Ventilator 28 06/02/17 20:00 65 06/02/17 20:00 28 06/02/17 20:00 98.8 64 16 148/82 99 Mechanical Ventilator 06/02/17 19:26 65 16 28 06/02/17 17:09 63 16 28 06/02/17 16:00 28 06/02/17 16:00 62 06/02/17 16:00 98.1 68 16 155/76 99 Mechanical Ventilator 28 06/02/17 15:31 62 16 99 Mechanical Ventilator 06/02/17 15:16 64 16 99 Mechanical Ventilator 06/02/17 15:09 64 16 28 06/02/17 12:39 63 16 28 06/02/17 12:00 97.0 79 16 102/61 93 Mechanical Ventilator 28 06/02/17 12:00 79 06/02/17 12:00 28 06/02/17 10:37 69 16 28 06/02/17 08:51 72 16 28 06/02/17 08:00 28 06/02/17 08:00 70 06/02/17 08:00 98.1 71 16 124/78 99 Mechanical Ventilator 28 06/02/17 07:38 28 06/02/17 07:38 68 16 100 Mechanical Ventilator 28 06/02/17 07:29 69 17 100 Mechanical Ventilator 28 06/02/17 07:27 69 16 28 Laboratory Tests 06/02/17 08:09: White Blood Count 13.9H, Red Blood Count 2.92L, Hemoglobin 9.0L, Hematocrit 29.2L, Mean Corpuscular Volume 100H, Mean Corpuscular Hemoglobin 31.0, Mean Corpuscular Hemoglobin Concent 31.0L, Red Cell Distribution Width 26.6H, Platelet Count 287, Mean Platelet Volume 7.7, Neutrophils (%) (Auto) 81.0H, Lymphocytes (%) (Auto) 9.7L, Monocytes (%) (Auto) 5.7, Eosinophils (%) (Auto) 2.7, Basophils (%) (Auto) 0.9, Sodium Level 144, Potassium Level 4.7#, Chloride Level 106, Carbon Dioxide Level 31, Anion Gap 7, Blood Urea Nitrogen 43H, Creatinine 1.1, Estimat Glomerular Filtration Rate 50.3, Glucose Level 155H, Uric Acid 4.6, Calcium Level 8.1L, Phosphorus Level 2.7, Magnesium Level 1.9, Total Bilirubin 0.9, Gamma Glutamyl Transpeptidase 328H, Aspartate Amino Transf (AST/SGOT) 23, Alanine Aminotransferase (ALT/SGPT) 31, Alkaline Phosphatase 157H , C-Reactive Protein, Quantitative 4.1H, Pro-B-Type Natriuretic Peptide 3405H, Total Protein 5.9L, Albumin 2.0L, Globulin 3.9, Albumin/Globulin Ratio 0.5L, Thyroid Stimulating Hormone (TSH) 7.996H 06/03/17 04:45: White Blood Count 14.5H, Red Blood Count 3.41L, Hemoglobin 10.9L, Hematocrit 33.5L, Mean Corpuscular Volume 98, Mean Corpuscular Hemoglobin 31.9H, Mean Corpuscular Hemoglobin Concent 32.4, Red Cell Distribution Width 24.0H, Platelet Count 321, Mean Platelet Volume 8.6, Neutrophils (%) (Auto) 80.0H, Lymphocytes (%) (Auto) 11.0L, Monocytes (%) (Auto) 4.9, Eosinophils (%) (Auto) 2.7, Basophils (%) (Auto) 1.4, Sodium Level 143, Potassium Level 4.0, Chloride Level 104, Carbon Dioxide Level 34H, Anion Gap 5, Blood Urea Nitrogen 53H, Creatinine 1.2, Estimat Glomerular Filtration Rate 45.5, Glucose Level 163H, Uric Acid 4.9, Calcium Level 8.3L, Phosphorus Level 2.3L, Magnesium Level 1.7L, Total Bilirubin 0.8, Aspartate Amino Transf (AST/SGOT) 21, Alanine Aminotransferase (ALT/SGPT) 30, Alkaline Phosphatase 152H, C-Reactive Protein, Quantitative 3.1H, Pro-B-Type Natriuretic Peptide 2960H, Total Protein 5.9L, Albumin 1.9L, Globulin 4.0, Albumin/Globulin Ratio 0.5L Height (Feet): 5 Height (Inches): 0.00 Weight (Pounds): 233 General Appearance: no apparent distress EENT: normal ENT inspection Neck: supple Cardiovascular: normal rate Respiratory/Chest: decreased breath sounds Abdomen: normal bowel sounds, non tender, soft Extremities: non-tender MARTÍN SANTOS Jun 03, 2017 06:59
[2017-06-03 08:00] VITALS: BP 137/78
--- NOTE | 2017-06-03 08:30 | Infectious Diseases Prog Note ---
Assessment/Plan Assessment/Plan A 1. klebsiella UTI 2. leucocytosis improving 3. respiratory failure 4. DM 5. HPN 6. anoxic brain injury 7. Anasarca 8. Pericardial effusion 9. ascites P 1. Continue Cefepime & Flagyl X 2 days 2. will f/u cultures Subjective ROS Limited/Unobtainable: Yes Gastrointestinal/Abdominal: Reports: diarrhea Allergies: Coded Allergies: OLANZAPINE (Verified Allergy, Severe, RESP FAILURE, 11/25/13) VANCOMYCIN (Verified Allergy, Severe, 11/25/13) PIPERACILLIN (Verified Allergy, Intermediate, HIVES, 11/25/13) TAZOBACTAM (Verified Allergy, Intermediate, HIVES, 11/25/13) Objective Vital Signs Last 24 Hour Vital Signs Date Time Temp Pulse Resp B/P (MAP) Pulse Ox O2 Delivery O2 Flow Rate FiO2 06/03/17 07:42 68 16 100 Mechanical Ventilator 06/03/17 07:02 66 16 99 Mechanical Ventilator 06/03/17 07:01 66 16 28 06/03/17 05:17 64 16 28 06/03/17 04:21 62 16 100 Mechanical Ventilator 06/03/17 04:12 61 16 99 Mechanical Ventilator 06/03/17 04:02 98.7 60 16 156/91 99 Mechanical Ventilator 28 06/03/17 04:00 28 06/03/17 03:58 61 16 28 06/03/17 03:00 62 06/03/17 01:12 70 17 28 06/03/17 00:05 18 99 Mechanical Ventilator 28 06/03/17 00:00 98.6 62 16 148/75 99 Mechanical Ventilator 06/03/17 00:00 63 06/02/17 23:36 65 16 99 Mechanical Ventilator 06/02/17 23:22 62 16 99 Mechanical Ventilator 06/02/17 23:21 67 16 28 06/02/17 21:16 67 17 28 06/02/17 20:21 64 16 99 Mechanical Ventilator 06/02/17 20:12 63 16 99 Mechanical Ventilator 06/02/17 20:05 18 99 Mechanical Ventilator 28 06/02/17 20:00 65 06/02/17 20:00 28 06/02/17 20:00 98.8 64 16 148/82 99 Mechanical Ventilator 06/02/17 19:26 65 16 28 06/02/17 17:09 63 16 28 06/02/17 16:00 28 06/02/17 16:00 62 06/02/17 16:00 98.1 68 16 155/76 99 Mechanical Ventilator 28 06/02/17 15:31 62 16 99 Mechanical Ventilator 06/02/17 15:16 64 16 99 Mechanical Ventilator 06/02/17 15:09 64 16 28 06/02/17 12:39 63 16 28 06/02/17 12:00 97.0 79 16 102/61 93 Mechanical Ventilator 28 06/02/17 12:00 79 06/02/17 12:00 28 06/02/17 10:37 69 16 28 06/02/17 08:51 72 16 28 Height (Feet): 5 Height (Inches): 0.00 Weight (Pounds): 233 HEENT: status post trach Respiratory/Chest: lungs clear, other - on ventilator Cardiovascular: normal rate, other - RIJ Sandip catheter Abdomen: soft, non tender, other - GT in place Extremities: other - generalized edema Neurologic/Psychiatric: other - opens eyes Laboratory Tests Test 06/03/17 04:45 White Blood Count 14.5 K/UL (4.8-10.8) H Red Blood Count 3.41 M/UL (4.20-5.40) L Hemoglobin 10.9 G/DL (12.0-16.0) L Hematocrit 33.5 % (37.0-47.0) L Mean Corpuscular Volume 98 FL (80-99) Mean Corpuscular Hemoglobin 31.9 PG (27.0-31.0) H Mean Corpuscular Hemoglobin Concent 32.4 G/DL (32.0-36.0) Red Cell Distribution Width 24.0 % (11.6-14.8) H Platelet Count 321 K/UL (150-450) Mean Platelet Volume 8.6 FL (6.5-10.1) Neutrophils (%) (Auto) 80.0 % (45.0-75.0) H Lymphocytes (%) (Auto) 11.0 % (20.0-45.0) L Monocytes (%) (Auto) 4.9 % (1.0-10.0) Eosinophils (%) (Auto) 2.7 % (0.0-3.0) Basophils (%) (Auto) 1.4 % (0.0-2.0) Sodium Level 143 MMOL/L (136-145) Potassium Level 4.0 MMOL/L (3.5-5.1) Chloride Level 104 MMOL/L (98-107) Carbon Dioxide Level 34 MMOL/L (21-32) H Anion Gap 5 mmol/L (5-15) Blood Urea Nitrogen 53 mg/dL (7-18) H Creatinine 1.2 MG/DL (0.55-1.30) Estimat Glomerular Filtration Rate 45.5 mL/min (>60) Glucose Level 163 MG/DL (74-106) H Uric Acid 4.9 MG/DL (2.6-7.2) Calcium Level 8.3 MG/DL (8.5-10.1) L Phosphorus Level 2.3 MG/DL (2.5-4.9) L Magnesium Level 1.7 MG/DL (1.8-2.4) L Total Bilirubin 0.8 MG/DL (0.2-1.0) Aspartate Amino Transf (AST/SGOT) 21 U/L (15-37) Alanine Aminotransferase (ALT/SGPT) 30 U/L (12-78) Alkaline Phosphatase 152 U/L (46-116) H C-Reactive Protein, Quantitative 3.1 mg/dL (0.00-0.90) H Pro-B-Type Natriuretic Peptide 2960 pg/mL (0-125) H Total Protein 5.9 G/DL (6.4-8.2) L Albumin 1.9 G/DL (3.4-5.0) L Globulin 4.0 g/dL Albumin/Globulin Ratio 0.5 (1.0-2.7) L Current Medications Medications (Trade) Dose Ordered Sig/Alex Route PRN Reason Start Time Stop Time Status Last Admin Dose Admin Acetaminophen (Tylenol) 650 mg Q6H PRN GT Mild Pain/Temp > 100.5 05/30/17 01:15 06/22/17 19:14 Albuterol Sulfate (Proventil) 2.5 mg Q4HRT HHN 06/02/17 21:00 06/07/17 20:59 06/03/17 06:59 Allopurinol (Allopurinol) 300 mg DAILY GT 05/30/17 09:00 06/24/17 08:59 06/02/17 09:15 Amiodarone HCl (Cordarone) 200 mg BID GT 06/01/17 09:00 06/26/17 20:59 06/02/17 18:31 Atenolol (Tenormin) 12.5 mg DAILY GT 05/30/17 09:00 06/24/17 10:59 06/02/17 09:07 Bisacodyl (Dulcolax) 5 mg DAILYPRN PRN RECTAL Constipation 05/29/17 20:30 06/22/17 20:29 Cefepime HCl 2 gm/ Dextrose 55 ml @ 110 mls/hr Q24H IV 05/30/17 21:00 06/06/17 20:59 06/02/17 22:06 Chlorhexidine Gluconate (Rubina-Hex 2%) 1 applic DAILY@2000 TOPIC 05/29/17 20:00 06/24/17 19:59 06/02/17 22:05 Dextrose (Dextrose 50%) STAT PRN IV Hypoglycemia 05/30/17 08:30 06/23/17 08:29 Epoetin Amadou (Procrit (for non ESRD use)) 10,000 units MON-SUN-SUN SUBQ 05/30/17 21:00 06/24/17 20:59 06/01/17 21:25 Heparin Sodium (Porcine) (Heparin 5000 units/ml) 5,000 units EVERY 12 HOURS SUBQ 05/29/17 21:00 06/22/17 08:59 06/02/17 22:07 Insulin Aspart (NovoLOG) EVERY 6 HOURS SUBQ 05/30/17 00:00 06/23/17 11:29 06/03/17 06:18 Ipratropium [place] (Atrovent) 500 mcg Q4HRT HHN 06/02/17 21:00 06/07/17 20:59 06/03/17 06:59 Lansoprazole (Prevacid) 30 mg DAILY GT 05/31/17 09:00 06/30/17 08:59 06/02/17 09:07 Levothyroxine Sodium (Synthroid) 75 mcg ACBREAKFAST GT 05/30/17 06:30 06/21/17 06:29 06/03/17 06:46 Levothyroxine Sodium (Synthroid) 100 mcg ACBREAKFAST GT 05/30/17 06:30 06/21/17 06:29 06/03/17 06:46 Metronidazole (Flagyl) 500 mg Q8H GT 06/01/17 20:00 06/04/17 23:59 06/03/17 03:48 Midodrine (Pro-Amatine) 5 mg BID ORAL 05/31/17 09:00 06/27/17 12:59 06/02/17 18:32 Patient Own Medication (Patient's Own Med) 1 ea BID ORAL 05/30/17 09:00 06/28/17 17:59 06/02/17 18:00 Patient Own Medication (Patient's Own Med) 1 ea QID BOTH EYES 05/29/17 21:00 06/28/17 17:59 06/02/17 22:08 Patient Own Medication (Patient's Own Med) 1 ea QID BOTH EYES 05/29/17 21:00 06/22/17 20:59 06/02/17 22:09 EPIFANIO NGUYEN Jun 03, 2017 08:30
--- NOTE | 2017-06-03 08:38 | Diagnostic Imaging Report ---
Indication: Respiratory distress Technique: CT scan of the chest was performed without intravenous contrast material. Continuous helical scanning was obtained with displayed 5 mm sections in axial and coronal planes. Dose: Total Dose Length Product - DLP [address] Dose Index - CTDIvol(s) 29.93 mGy. Automated exposure control was utilized for dose reduction. Comparison: 05/21/17 Findings: There is a tracheostomy tube in the trachea. Proximal trachea is dilated in the area of the balloon. Multiple nodes are noted in the mediastinum, nonspecific. The largest node measures approximately 2 cm the left. There is a moderate pericardial effusion. There is some slight high density within the pericardial fluid on the left suggesting some nodularity of this is uncertain. Lack of intravenous contrast material limits evaluation. Volume loss in the left lower lobe. Some interstitial changes noted in the right lung with some volume loss in the lower lobe. No significant pulmonary nodules. A gastrostomy tube is seen in the stomach. There is increased density in the subcutaneous tissues. Liver appears enlarged but is incompletely scanned. A dialysis catheter is seen in the superior vena cava. There also appears to be a PICC line on the right. Impression: Tracheostomy with slight enlargement of the trachea in the region of the balloon. Moderate pericardial effusion. May be some nodularity within this. Possibly include both benign and malignant pericardial effusion. Low lung volumes with bilateral atelectasis, left greater than right. Hepatomegaly. Multiple mediastinal lymph nodes, nonspecific. These could be benign normal ligament but most are normal size. The largest measures 2 cm. Right-sided PICC line. Right jugular dialysis catheter. Stress G-tube. Nonspecific subcutaneous edema. There are [place] The CT scanner at [facility] is accredited by the [employer] and the scans are performed using protocols designed to limit radiation exposure to as low as reasonably achievable to attain images of sufficient resolution adequate for diagnostic evaluation.
[2017-06-03 08:40] LABS: ABG PCO2 39.6 mmHg (35.0-45.0)
[2017-06-03 08:41] LABS: ABG BASE EXCESS 4.2
[2017-06-03] MEDS: Atenolol 12.5mg GT SCH (09:07)
[2017-06-03] MEDS: SYSTANE ULTRA BOTH EYES SCH ×4 (09:07→21:11)
[2017-06-03] MEDS: [UNRECOGNIZED DRUG - OTHER] ORAL SCH ×2 (09:07→18:40)
[2017-06-03] MEDS: Amiodarone 200mg tab GT SCH ×2 (09:07→18:39)
[2017-06-03] MEDS: [UNRECOGNIZED DRUG - OTHER] BOTH EYES SCH ×4 (09:07→21:12)
[2017-06-03] MEDS: Heparin 5000 units/ml inj SUBQ SCH ×2 (09:10→21:00)
--- NOTE | 2017-06-03 10:27 | Pulmonology Progress Note ---
Assessment/Plan Assessment/Plan IMPRESSION respiratory failure possible UTI sepsis ARF/CRF hyperkalemia pericardial effusion possible renal cyst vs mass hypertension (now with normal BP off meds) chronic encephalopathy hypothyroidism diabetes possible cirrhosis atrial fib, paroxysmal hyperuricemia pain possible ascites pericardial fluid collection anasarca PLAN ventilator management- as is monitor acid base for change- ABG again ordered monitor PIP CT chest noted sliding scale and monitor sugars- sugars controlled monitor for residuals GT care GI/renal/ID/cards evaluation monitor clinically antibiotics noted- ID discussed WBC still elevated monitor off HD if possible hope to dc home soon if dialysis not needed still needs pericardial evaluation medications/laboratory data/nursing notes reviewed in detail note reviewed and edited care discussed with RN and RT Subjective ROS Limited/Unobtainable: Yes Allergies: Coded Allergies: OLANZAPINE (Verified Allergy, Severe, RESP FAILURE, 11/25/13) VANCOMYCIN (Verified Allergy, Severe, 11/25/13) PIPERACILLIN (Verified Allergy, Intermediate, HIVES, 11/25/13) TAZOBACTAM (Verified Allergy, Intermediate, HIVES, 11/25/13) Subjective overnight events reviewed labs noted noted UO CT reviewed Objective Last 24 Hour Vital Signs Date Time Temp Pulse Resp B/P (MAP) Pulse Ox O2 Delivery O2 Flow Rate FiO2 06/03/17 09:16 70 16 28 06/03/17 08:00 72 06/03/17 07:42 68 16 100 Mechanical Ventilator 06/03/17 07:02 66 16 99 Mechanical Ventilator 06/03/17 07:01 66 16 28 06/03/17 05:17 64 16 28 06/03/17 04:21 62 16 100 Mechanical Ventilator 06/03/17 04:12 61 16 99 Mechanical Ventilator 06/03/17 04:02 98.7 60 16 156/91 99 Mechanical Ventilator 28 06/03/17 04:00 28 06/03/17 03:58 61 16 28 06/03/17 03:00 62 06/03/17 01:12 70 17 28 06/03/17 00:05 18 99 Mechanical Ventilator 28 06/03/17 00:00 98.6 62 16 148/75 99 Mechanical Ventilator 28 06/03/17 00:00 63 06/02/17 23:36 65 16 99 Mechanical Ventilator 06/02/17 23:22 62 16 99 Mechanical Ventilator 06/02/17 23:21 67 16 28 06/02/17 21:16 67 17 28 06/02/17 20:21 64 16 99 Mechanical Ventilator 06/02/17 20:12 63 16 99 Mechanical Ventilator 06/02/17 20:05 18 99 Mechanical Ventilator 06/02/17 20:00 65 06/02/17 20:00 28 06/02/17 20:00 98.8 64 16 148/82 99 Mechanical Ventilator 06/02/17 19:26 65 16 28 06/02/17 17:09 63 16 28 06/02/17 16:00 28 06/02/17 16:00 62 06/02/17 16:00 98.1 68 16 155/76 99 Mechanical Ventilator 28 06/02/17 15:31 62 16 99 Mechanical Ventilator 06/02/17 15:16 64 16 99 Mechanical Ventilator 06/02/17 15:09 64 16 28 06/02/17 12:39 63 16 28 06/02/17 12:00 97.0 79 16 102/61 93 Mechanical Ventilator 06/02/17 12:00 79 06/02/17 12:00 28 06/02/17 10:37 69 16 28 Objective WDWN female chronically ill NAD coarse breath sounds bilaterally without rhonchi or wheeze PIP reviewed [id number] without MRG NABS nontender no HSM; protuberant; GT- no CC some edema diffusely short neck unresponsive reviewed and edited Laboratory Tests 06/03/17 04:45: White Blood Count 14.5H, Red Blood Count 3.41L, Hemoglobin 10.9L, Hematocrit 33.5L, Mean Corpuscular Volume 98, Mean Corpuscular Hemoglobin 31.9H, Mean Corpuscular Hemoglobin Concent 32.4, Red Cell Distribution Width 24.0H, Platelet Count 321, Mean Platelet Volume 8.6, Neutrophils (%) (Auto) 80.0H, Lymphocytes (%) (Auto) 11.0L, Monocytes (%) (Auto) 4.9, Eosinophils (%) (Auto) 2.7, Basophils (%) (Auto) 1.4, Sodium Level 143, Potassium Level 4.0, Chloride Level 104, Carbon Dioxide Level 34H, Anion Gap 5, Blood Urea Nitrogen 53H, Creatinine 1.2, Estimat Glomerular Filtration Rate 45.5, Glucose Level 163H, Uric Acid 4.9, Calcium Level 8.3L, Phosphorus Level 2.3L, Magnesium Level 1.7L, Total Bilirubin 0.8, Aspartate Amino Transf (AST/SGOT) 21, Alanine Aminotransferase (ALT/SGPT) 30, Alkaline Phosphatase 152H, C-Reactive Protein, Quantitative 3.1H, Pro-B-Type Natriuretic Peptide 2960H, Total Protein 5.9L, Albumin 1.9L, Globulin 4.0, Albumin/Globulin Ratio 0.5L 06/03/17 08:30: Arterial Blood pH 7.470H, Arterial Blood Partial Pressure CO2 39.6, Arterial Blood Partial Pressure O2 89.5, Arterial Blood HCO3 28.2H, Arterial Blood Oxygen Saturation 96.4, Arterial Blood Base Excess 4.2, Jayden Test N/a Current Medications Medications (Trade) Dose Ordered Sig/Alex Route PRN Reason Start Time Stop Time Status Last Admin Dose Admin Acetaminophen (Tylenol) 650 mg Q6H PRN GT Mild Pain/Temp > 100.5 05/30/17 01:15 06/22/17 19:14 Albuterol Sulfate (Proventil) 2.5 mg Q4HRT HHN 06/02/17 21:00 06/07/17 20:59 06/03/17 06:59 Allopurinol (Allopurinol) 300 mg DAILY GT 05/30/17 09:00 06/24/17 08:59 06/03/17 09:07 Amiodarone HCl (Cordarone) 200 mg BID GT 06/01/17 09:00 06/26/17 20:59 06/03/17 09:07 Atenolol (Tenormin) 12.5 mg DAILY GT 05/30/17 09:00 06/24/17 10:59 06/03/17 09:07 Bisacodyl (Dulcolax) 5 mg DAILYPRN PRN RECTAL Constipation 05/29/17 20:30 06/22/17 20:29 Cefepime HCl 2 gm/ Dextrose 55 ml @ 110 mls/hr Q24H IV 05/30/17 21:00 06/06/17 20:59 06/02/17 22:06 Chlorhexidine Gluconate (Rubina-Hex 2%) 1 applic DAILY@2000 TOPIC 05/29/17 20:00 06/24/17 19:59 06/02/17 22:05 Dextrose (Dextrose 50%) STAT PRN IV Hypoglycemia 05/30/17 08:30 06/23/17 08:29 Epoetin Amadou (Procrit (for non ESRD use)) 10,000 units SUN-SUN-SUN SUBQ 05/30/17 21:00 06/24/17 20:59 06/01/17 21:25 Heparin Sodium (Porcine) (Heparin 5000 units/ml) 5,000 units EVERY 12 HOURS SUBQ 05/29/17 21:00 06/22/17 08:59 06/03/17 09:10 Insulin Aspart (NovoLOG) EVERY 6 HOURS SUBQ 05/30/17 00:00 06/23/17 11:29 06/03/17 06:18 Ipratropium [place] (Atrovent) 500 mcg Q4HRT HHN 06/02/17 21:00 06/07/17 20:59 06/03/17 06:59 Lansoprazole (Prevacid) 30 mg DAILY GT 05/31/17 09:00 06/30/17 08:59 06/03/17 09:07 Levothyroxine Sodium (Synthroid) 75 mcg ACBREAKFAST GT 05/30/17 06:30 06/21/17 06:29 06/03/17 06:46 Levothyroxine Sodium (Synthroid) 100 mcg ACBREAKFAST GT 05/30/17 06:30 06/21/17 06:29 06/03/17 06:46 Magnesium Sulfate 100 ml @ 100 mls/hr Q1H IVPB 06/03/17 10:15 06/03/17 12:14 UNV Metronidazole (Flagyl) 500 mg Q8H GT 06/01/17 20:00 06/04/17 23:59 06/03/17 03:48 Midodrine (Pro-Amatine) 5 mg BID ORAL 05/31/17 09:00 06/27/17 12:59 06/02/17 18:32 Patient Own Medication (Patient's Own Med) 1 ea BID ORAL 05/30/17 09:00 06/28/17 17:59 06/03/17 09:07 Patient Own Medication (Patient's Own Med) 1 ea QID BOTH EYES 05/29/17 21:00 06/28/17 17:59 06/03/17 09:07 Patient Own Medication (Patient's Own Med) 1 ea QID BOTH EYES 05/29/17 21:00 06/22/17 20:59 06/03/17 09:07 ANTIONETTE RODRIGUEZ Jun 03, 2017 10:27
--- NOTE | 2017-06-03 11:53 | Nephrology Progress Note ---
Assessment/Plan Problem List: (1) Acute renal failure Assessment: urine out put higher (2) Sepsis (3) UTI (urinary tract infection) (4) Tracheostomy dependence (5) Hypotension Assessment urine out put rising 950 past 24 h H&H higher after transfusion Last HD 05/30 First Dialysed 05/26 and 850 cc removed- Ascitic tap 2 liter removed 05/25 -. Acute renal failure due to ? sepsis , intravascular volume depletion, low BP... Urine out put increasing -. Hypoalbuminemia: - Increase loss: NS - Decrease production: Nutritional -. Shock, sepsis, pneumonia, pericardial effusion. -. History of hypertension, now with low blood pressure. -. Hyperkalemia. improved -. Hyponatremia. improved -. Prerenal azotemia. -. Respiratory failure with tracheostomy. -. Anasarca with ascites. due to low Albumin -. HypoThyroidism . Plan today's labs reviewed K and phos supplement as needed No dialysis , Urine out put higher- 950 last 24 h Will manage with diuretics PER ORDERS Diet to Nepro- Antibiotics- IV protonix Pulmonary support- Keep BP in check, midodrine when needed Monitor renal parameters- Avoid nephrotoxics per orders talked to [employer] career counselor and Dr De León 05/23 Long phone conversation with sister who requests transfer to [facility] 05/23 discussed with PHIL Fernandez Subjective ROS Limited/Unobtainable: Yes Objective Objective Last 24 Hour Vital Signs Date Time Temp Pulse Resp B/P (MAP) Pulse Ox O2 Delivery O2 Flow Rate FiO2 06/03/17 11:27 70 16 99 Mechanical Ventilator 06/03/17 11:25 70 16 28 06/03/17 10:52 66 16 99 Mechanical Ventilator 06/03/17 09:16 70 16 28 06/03/17 08:00 72 06/03/17 07:42 68 16 100 Mechanical Ventilator 06/03/17 07:02 66 16 99 Mechanical Ventilator 06/03/17 07:01 66 16 28 06/03/17 05:17 64 16 28 06/03/17 04:21 62 16 100 Mechanical Ventilator 06/03/17 04:12 61 16 99 Mechanical Ventilator 06/03/17 04:02 98.7 60 16 156/91 99 Mechanical Ventilator 28 06/03/17 04:00 28 06/03/17 03:58 61 16 28 06/03/17 03:00 62 06/03/17 01:12 70 17 28 06/03/17 00:05 18 99 Mechanical Ventilator 28 06/03/17 00:00 98.6 62 16 148/75 99 Mechanical Ventilator 28 06/03/17 00:00 63 06/02/17 23:36 65 16 99 Mechanical Ventilator 06/02/17 23:22 62 16 99 Mechanical Ventilator 06/02/17 23:21 67 16 28 06/02/17 21:16 67 17 28 06/02/17 20:21 64 16 99 Mechanical Ventilator 06/02/17 20:12 63 16 99 Mechanical Ventilator 06/02/17 20:05 18 99 Mechanical Ventilator 28 06/02/17 20:00 65 06/02/17 20:00 28 06/02/17 20:00 98.8 64 16 148/82 99 Mechanical Ventilator 06/02/17 19:26 65 16 28 06/02/17 17:09 63 16 28 06/02/17 16:00 28 06/02/17 16:00 62 06/02/17 16:00 98.1 68 16 155/76 99 Mechanical Ventilator 28 06/02/17 15:31 62 16 99 Mechanical Ventilator 06/02/17 15:16 64 16 99 Mechanical Ventilator 06/02/17 15:09 64 16 28 06/02/17 12:39 63 16 28 06/02/17 12:00 97.0 79 16 102/61 93 Mechanical Ventilator 28 06/02/17 12:00 79 06/02/17 12:00 28 Laboratory Tests 06/03/17 04:45: White Blood Count 14.5H, Red Blood Count 3.41L, Hemoglobin 10.9L, Hematocrit 33.5L, Mean Corpuscular Volume 98, Mean Corpuscular Hemoglobin 31.9H, Mean Corpuscular Hemoglobin Concent 32.4, Red Cell Distribution Width 24.0H, Platelet Count 321, Mean Platelet Volume 8.6, Neutrophils (%) (Auto) 80.0H, Lymphocytes (%) (Auto) 11.0L, Monocytes (%) (Auto) 4.9, Eosinophils (%) (Auto) 2.7, Basophils (%) (Auto) 1.4, Sodium Level 143, Potassium Level 4.0, Chloride Level 104, Carbon Dioxide Level 34H, Anion Gap 5, Blood Urea Nitrogen 53H, Creatinine 1.2, Estimat Glomerular Filtration Rate 45.5, Glucose Level 163H, Uric Acid 4.9, Calcium Level 8.3L, Phosphorus Level 2.3L, Magnesium Level 1.7L, Total Bilirubin 0.8, Aspartate Amino Transf (AST/SGOT) 21, Alanine Aminotransferase (ALT/SGPT) 30, Alkaline Phosphatase 152H, C-Reactive Protein, Quantitative 3.1H, Pro-B-Type Natriuretic Peptide 2960H, Total Protein 5.9L, Albumin 1.9L, Globulin 4.0, Albumin/Globulin Ratio 0.5L 06/03/17 08:30: Arterial Blood pH 7.470H, Arterial Blood Partial Pressure CO2 39.6, Arterial Blood Partial Pressure O2 89.5, Arterial Blood HCO3 28.2H, Arterial Blood Oxygen Saturation 96.4, Arterial Blood Base Excess 4.2, Jayden Test N/a Height (Feet): 5 Height (Inches): 0.00 Weight (Pounds): 233 General Appearance: no apparent distress Respiratory/Chest: decreased breath sounds Abdomen: soft Extremities: other - edema Objective no other changes QIANA SALGADO Jun 03, 2017 11:53
--- NOTE | 2017-06-03 11:55 | General Progress Note ---
Assessment/Plan Problem List: (1) Sepsis ICD Codes: A41.9 - Sepsis, unspecified organism SNOMED: 66404033 (2) Pneumonia ICD Codes: J18.9 - Pneumonia, unspecified organism SNOMED: 488455474 (3) Acute renal failure ICD Codes: N17.9 - Acute kidney failure, unspecified SNOMED: 06090517 (4) Pericardial effusion ICD Codes: I31.3 - Pericardial effusion (noninflammatory) SNOMED: 361202052 (5) Tracheostomy malfunction ICD Codes: J95.03 - Malfunction of tracheostomy stoma SNOMED: 88096841 (6) UTI (urinary tract infection) ICD Codes: N39.0 - Urinary tract infection, site not specified SNOMED: 48996287, 348552913 Qualifiers: Qualified Codes: N30.01 - Acute cystitis with hematuria Status: stable, progressing Assessment/Plan HD per renal diuresis iv abx per id monitor wbc- improving vent support resp rx monitor renal fxn HD per renal poor prognosis. d/w caregiver. transfuse dnr remains critical and guarded prognosis remains poor percardial effusion better- no need to transfer per cards Subjective ROS Limited/Unobtainable: Yes Constitutional: Reports: malaise, weakness HEENT: Reports: no symptoms Cardiovascular: Reports: edema Respiratory: Reports: shortness of breath Gastrointestinal/Abdominal: Reports: abdomen distended Genitourinary: Reports: no symptoms Neurologic/Psychiatric: Reports: pre-existing deficit Endocrine: Reports: no symptoms Hematologic/Lymphatic: Reports: anemia Allergies: Coded Allergies: OLANZAPINE (Verified Allergy, Severe, RESP FAILURE, 11/25/13) VANCOMYCIN (Verified Allergy, Severe, 11/25/13) PIPERACILLIN (Verified Allergy, Intermediate, HIVES, 11/25/13) TAZOBACTAM (Verified Allergy, Intermediate, HIVES, 11/25/13) All Systems: reviewed and negative except above Subjective no events. d/w corporate compliance manager at the bedside. intermittent afib. still with poor uop. decrease h/h noted. no bleeding noted. more "swollen" according to corporate compliance manager. no HD since last week Objective Last 24 Hour Vital Signs Date Time Temp Pulse Resp B/P (MAP) Pulse Ox O2 Delivery O2 Flow Rate FiO2 06/03/17 11:27 70 16 99 Mechanical Ventilator 12/10/17 11:25 70 16 28 06/03/17 10:52 66 16 99 Mechanical Ventilator 28 06/03/17 09:16 70 16 28 06/03/17 08:00 72 06/03/17 07:42 68 16 100 Mechanical Ventilator 06/03/17 07:02 66 16 99 Mechanical Ventilator 06/03/17 07:01 66 16 28 06/03/17 05:17 64 16 28 06/03/17 04:21 62 16 100 Mechanical Ventilator 06/03/17 04:12 61 16 99 Mechanical Ventilator 06/03/17 04:02 98.7 60 16 156/91 99 Mechanical Ventilator 28 06/03/17 04:00 28 06/03/17 03:58 61 16 28 06/03/17 03:00 62 06/03/17 01:12 70 17 28 06/03/17 00:05 18 99 Mechanical Ventilator 28 06/03/17 00:00 98.6 62 16 148/75 99 Mechanical Ventilator 28 06/03/17 00:00 63 06/02/17 23:36 65 16 99 Mechanical Ventilator 06/02/17 23:22 62 16 99 Mechanical Ventilator 06/02/17 23:21 67 16 28 06/02/17 21:16 67 17 28 06/02/17 20:21 64 16 99 Mechanical Ventilator 06/02/17 20:12 63 16 99 Mechanical Ventilator 06/02/17 20:05 18 99 Mechanical Ventilator 28 06/02/17 20:00 65 06/02/17 20:00 28 06/02/17 20:00 98.8 64 16 148/82 99 Mechanical Ventilator 06/02/17 19:26 65 16 28 06/02/17 17:09 63 16 28 06/02/17 16:00 28 06/02/17 16:00 62 06/02/17 16:00 98.1 68 16 155/76 99 Mechanical Ventilator 28 06/02/17 15:31 62 16 99 Mechanical Ventilator 06/02/17 15:16 64 16 99 Mechanical Ventilator 06/02/17 15:09 64 16 28 06/02/17 12:39 63 16 28 06/02/17 12:00 97.0 79 16 102/61 93 Mechanical Ventilator 28 06/02/17 12:00 79 06/02/17 12:00 28 Laboratory Tests 06/03/17 04:45: White Blood Count 14.5H, Red Blood Count 3.41L, Hemoglobin 10.9L, Hematocrit 33.5L, Mean Corpuscular Volume 98, Mean Corpuscular Hemoglobin 31.9H, Mean Corpuscular Hemoglobin Concent 32.4, Red Cell Distribution Width 24.0H, Platelet Count 321, Mean Platelet Volume 8.6, Neutrophils (%) (Auto) 80.0H, Lymphocytes (%) (Auto) 11.0L, Monocytes (%) (Auto) 4.9, Eosinophils (%) (Auto) 2.7, Basophils (%) (Auto) 1.4, Sodium Level 143, Potassium Level 4.0, Chloride Level 104, Carbon Dioxide Level 34H, Anion Gap 5, Blood Urea Nitrogen 53H, Creatinine 1.2, Estimat Glomerular Filtration Rate 45.5, Glucose Level 163H, Uric Acid 4.9, Calcium Level 8.3L, Phosphorus Level 2.3L, Magnesium Level 1.7L, Total Bilirubin 0.8, Aspartate Amino Transf (AST/SGOT) 21, Alanine Aminotransferase (ALT/SGPT) 30, Alkaline Phosphatase 152H, C-Reactive Protein, Quantitative 3.1H, Pro-B-Type Natriuretic Peptide 2960H, Total Protein 5.9L, Albumin 1.9L, Globulin 4.0, Albumin/Globulin Ratio 0.5L 06/03/17 08:30: Arterial Blood pH 7.470H, Arterial Blood Partial Pressure CO2 39.6, Arterial Blood Partial Pressure O2 89.5, Arterial Blood HCO3 28.2H, Arterial Blood Oxygen Saturation 96.4, Arterial Blood Base Excess 4.2, Jayden Test N/a Height (Feet): 5 Height (Inches): 0.00 Weight (Pounds): 233 Objective General Appearance: WD/WN, alert Neck: supple Cardiovascular: regular rhythm Respiratory/Chest: lungs clear Abdomen: hypoactive bowel sounds, distended Edema: severe edema Neurologic: unresponsive OCHOA BISWAS Jun 03, 2017 11:55
[2017-06-03 12:00] VITALS: BP 134/75
[2017-06-03] MEDS ORDERED: metOLazone 2.5 MG TAB GT ONE (12:00)
[2017-06-03] MEDS: Phospha 250 Neutral tab GT SCH ×2 (12:33→18:39)
[2017-06-03 16:00] VITALS: BP 141/74
[2017-06-03 20:00] VITALS: BP 149/82
[2017-06-03] MEDS: Dyna-Hex 2% Top Sol 2oz TOPIC SCH (20:00)
[2017-06-03] MEDS: Cefepime HCl 2 GM in D5W 55 ML IV SCH (21:11)
--- NOTE | 2017-06-03 22:01 | Progress Note ---
DATE: 06/02/2017 CARDIOLOGY PROGRESS NOTE SUBJECTIVE: The patient remains on ventilator support. Remains with sinus rhythm. Rare atrial ectopy at this time. Continues on antiarrhythmics with amiodarone and atenolol. The patient was given a packed red blood cell transfusion yesterday. OBJECTIVE: VITALS SIGNS: Blood pressure is 148/82, pulse 64, respiratory rate 16, and no fevers. NECK: Thin trach secretions. LUNGS: Bilateral breath sounds with rhonchi. HEART: Regular rhythm and rate. Normal S1 and S2. No murmur. ABDOMEN: Obese. EXTREMITIES: 1+ dependent edema. LABORATORY DATA: White count is 13.9 and hemoglobin 9. Potassium is 4.7, BUN 43, and creatinine 1.1. Pro-natriuretic peptide down to 3405. IMPRESSION: 1. Acute renal failure, resolved. 2. Acute on chronic diastolic congestive heart failure, improved. 3. Hypothyroidism, mild, on replacement therapy. 4. Severe protein-calorie malnutrition, on tube feedings. 5. Healthcare-acquired pneumonia, on antimicrobials and respiratory hygiene. 6. Paroxysmal atrial fibrillation, better suppressed with amiodarone and beta-sarah. 7. Ventilator-dependent respiratory failure. 8. Pericardial fluid collection of no hemodynamic significance. PLAN: 1. Ventilator support. 2. Antimicrobials. 3. No need to transfer as no plan for pericardial fluid drainage at this time. 4. Advance thyroid replacement. 5. Continue slow amiodarone loading 200 mg b.i.d. for now. 6. No plan for anticoagulation in the absence of sustained atrial arrhythmias. Ramo Toure M.D. DR: Aniceto JOB#: [id number] CC:
--- NOTE | 2017-06-03 23:46 | Progress Note ---
DATE: 06/03/2017 CARDIOLOGY PROGRESS NOTE SUBJECTIVE: The patient remains on ventilator support via tracheostomy. Monitored sinus with episodes of atrial fibrillation, less frequent and rare now. OBJECTIVE: VITAL SIGNS: Blood pressure 155/91, pulse 60, and respirations 16. LUNGS: Diminished breath sounds. No wheezing. HEART: Regular rhythm and rate. Normal S1 and S2. ABDOMEN: G-tube intact. EXTREMITIES: Moderate 1+ edema. LABORATORY DATA: White count 14.5 and hemoglobin 10.9. Sodium 143, potassium 4, bicarbonate 34, BUN 53, and creatinine 1.2. ABG, pH 7.47, pCO2 39, and pO2 89. CAT scan of the chest yesterday revealed nodular pericardial fluid, hepatomegaly, mediastinal lymph nodes, and emphysema. IMPRESSION: 1. Pericardial fluid collection, etiology unclear, but remained stable, presently of no hemodynamic significance. 2. Healthcare-acquired pneumonia, improved. 3. Respiratory failure with tracheostomy. 4. Acute renal failure, on hemodialysis. 5. Anemia due to acute kidney disease requiring transfusions periodically. 6. Acute on chronic diastolic congestive heart failure. 7. Paroxysmal atrial fibrillation. PLAN: 1. No plan for pericardiocentesis presently. 2. Continue antimicrobials and respiratory hygiene. 3. Monitor volume status and cardiorenal parameters. 4. 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 5. Maintain amiodarone at low loading dose. 6. Titrate beta-sarah based on clinical parameters. Ramo Toure M.D. DR: SHON JOB#: [id number] CC:
[2017-06-04] VITALS: BP 128/77
[2017-06-04] MEDS: NovoLOG Insulin Flexpen SUBQ SCH ×5 (00:54→23:09)
[2017-06-04] MEDS: Ipratropium 0.02% Inh Soln 2.5ml UD HHN SCH ×6 (03:49→23:03)
[2017-06-04] MEDS: Albuterol ud Inhalation HHN SCH ×6 (03:49→23:03)
[2017-06-04 04:00] VITALS: BP 147/82
[2017-06-04] MEDS: metroNIDAZOLE 500mg tab GT SCH ×3 (04:01→20:04)
[2017-06-04 08:00] VITALS: BP 142/81
[2017-06-04 08:34] LABS: BASOPHILS % (AUTO) 0.9 % (0.0-2.0); EOSINOPHILS % (AUTO) 1.4 % (0.0-3.0); LYMPHOCYTES % (AUTO) 10.8 % (20.0-45.0); MEAN CORPUSCULAR HEMOGLOBIN 31.3 PG (27.0-31.0); MEAN CORPUSCULAR HGB CONC 31.7 G/DL (32.0-36.0); MEAN CORPUSCULAR VOLUME 99 FL (80-99); MEAN PLATELET VOLUME 7.4 FL (6.5-10.1); MONOCYTES % (AUTO) 4.8 % (1.0-10.0); NEUTROPHILS % (AUTO) 82.2 % (45.0-75.0); PLATELET COUNT 392 K/UL (150-450); RED BLOOD COUNT 3.48 M/UL (4.20-5.40); WHITE BLOOD COUNT 12.3 K/UL (4.8-10.8)
--- NOTE | 2017-06-04 08:46 | Pulmonology Progress Note ---
Assessment/Plan Assessment/Plan IMPRESSION respiratory failure possible UTI sepsis ARF/CRF hyperkalemia pericardial effusion possible renal cyst vs mass hypertension (now with normal BP off meds) chronic encephalopathy hypothyroidism diabetes possible cirrhosis atrial fib, paroxysmal hyperuricemia pain possible ascites pericardial fluid collection anasarca s/p bronchoscopy PLAN ventilator management- as is monitor acid base for change- unable to obtain abg monitor PIP CT chest noted and discussed sliding scale and monitor sugars- sugars controlled monitor for residuals GT care GI/renal/ID/cards evaluation monitor clinically antibiotics noted- ID -hope to dc soon WBC improved monitor off HD if possible; dose of metolozone x 1 hope to dc home soon if dialysis not needed-next 48 hrs still needs pericardial evaluation follow up labs in am medications/laboratory data/nursing notes reviewed in detail note reviewed and edited care discussed with RN and RT Subjective ROS Limited/Unobtainable: Yes Allergies: Coded Allergies: OLANZAPINE (Verified Allergy, Severe, RESP FAILURE, 11/25/13) VANCOMYCIN (Verified Allergy, Severe, 11/25/13) PIPERACILLIN (Verified Allergy, Intermediate, HIVES, 11/25/13) TAZOBACTAM (Verified Allergy, Intermediate, HIVES, 11/25/13) Subjective overnight events reviewed labs noted noted UO CT reviewed with sister bronch completed Objective Last 24 Hour Vital Signs Date Time Temp Pulse Resp B/P (MAP) Pulse Ox O2 Delivery O2 Flow Rate FiO2 06/04/17 08:00 28 06/04/17 07:00 69 16 99 Mechanical Ventilator 06/04/17 06:53 83 16 100 Mechanical Ventilator 06/04/17 06:53 83 16 28 06/04/17 05:13 76 16 28 06/04/17 04:08 66 16 99 Mechanical Ventilator 06/04/17 04:00 72 06/04/17 04:00 28 06/04/17 04:00 98.9 74 16 147/82 99 Mechanical Ventilator 06/04/17 03:49 75 16 28 06/04/17 03:49 67 16 100 Mechanical Ventilator 06/04/17 01:42 74 16 28 06/04/17 00:05 16 100 Mechanical Ventilator 28 06/04/17 00:00 76 06/04/17 00:00 28 06/04/17 00:00 98.6 75 16 128/77 100 Mechanical Ventilator 06/04/17 00:00 78 16 99 Mechanical Ventilator 06/03/17 23:53 75 16 100 Mechanical Ventilator 28 06/03/17 23:53 74 15 28 06/03/17 21:41 76 16 28 06/03/17 20:10 71 16 99 Mechanical Ventilator 06/03/17 20:00 70 06/03/17 20:00 98.4 71 16 149/82 99 Mechanical Ventilator 06/03/17 20:00 28 06/03/17 19:51 69 16 100 Mechanical Ventilator 28 06/03/17 19:49 70 16 28 06/03/17 17:04 75 16 28 06/03/17 16:00 74 06/03/17 16:00 28 06/03/17 16:00 97.9 75 16 141/74 98 Mechanical Ventilator 28 06/03/17 15:16 69 16 99 Mechanical Ventilator 06/03/17 15:15 68 16 28 06/03/17 14:45 70 16 99 Mechanical Ventilator 28 06/03/17 12:57 66 16 28 06/03/17 12:00 28 06/03/17 12:00 97.9 71 16 134/75 98 Mechanical Ventilator 28 06/03/17 11:49 71 06/03/17 11:27 70 16 99 Mechanical Ventilator 06/03/17 11:25 70 16 28 06/03/17 10:52 66 16 99 Mechanical Ventilator 28 06/03/17 09:16 70 16 28 Objective WDWN female chronically ill NAD coarse breath sounds bilaterally without rhonchi or wheeze PIP reviewed [id number] without MRG NABS nontender no HSM; protuberant; GT- no CC noted edema diffusely short neck unresponsive reviewed and edited Laboratory Tests 06/04/17 07:30: White Blood Count 12.3H, Red Blood Count 3.48L, Hemoglobin 10.9L, Hematocrit 34.4L, Mean Corpuscular Volume 99, Mean Corpuscular Hemoglobin 31.3H, Mean Corpuscular Hemoglobin Concent 31.7L, Red Cell Distribution Width 24.0H, Platelet Count 392, Mean Platelet Volume 7.4, Neutrophils (%) (Auto) 82.2H, Lymphocytes (%) (Auto) 10.8L, Monocytes (%) (Auto) 4.8, Eosinophils (%) (Auto) 1.4, Basophils (%) (Auto) 0.9, Sodium Level [Pending], Potassium Level [Pending] , Chloride Level [Pending], Carbon Dioxide Level [Pending], Blood Urea Nitrogen [Pending], Creatinine [Pending], Estimat Glomerular Filtration Rate [Pending], Glucose Level [Pending], Uric Acid [Pending], Calcium Level [Pending], Phosphorus Level [Pending], Magnesium Level [Pending], Total Bilirubin [Pending] , Aspartate Amino Transf (AST/SGOT) [Pending], Alanine Aminotransferase (ALT/ SGPT) [Pending], Alkaline Phosphatase [Pending], C-Reactive Protein, Quantitative [Pending], Pro-B-Type Natriuretic Peptide [Pending], Total Protein [Pending], Albumin [Pending], Globulin [Pending] Current Medications Medications (Trade) Dose Ordered Sig/Alex Route PRN Reason Start Time Stop Time Status Last Admin Dose Admin Acetaminophen (Tylenol) 650 mg Q6H PRN GT Mild Pain/Temp > 100.5 05/30/17 01:15 06/22/17 19:14 Albuterol Sulfate (Proventil) 2.5 mg Q4HRT HHN 06/02/17 21:00 06/07/17 20:59 06/04/17 06:53 Allopurinol (Allopurinol) 300 mg DAILY GT 05/30/17 09:00 06/24/17 08:59 06/03/17 09:07 Amiodarone HCl (Cordarone) 200 mg BID GT 06/01/17 09:00 06/26/17 20:59 06/03/17 18:39 Atenolol (Tenormin) 12.5 mg DAILY GT 05/30/17 09:00 06/24/17 10:59 06/03/17 09:07 Bisacodyl (Dulcolax) 5 mg DAILYPRN PRN RECTAL Constipation 05/29/17 20:30 06/22/17 20:29 Cefepime HCl 2 gm/ Dextrose 55 ml @ 110 mls/hr Q24H IV 05/30/17 21:00 06/06/17 20:59 06/03/17 21:11 Chlorhexidine Gluconate (Rubina-Hex 2%) 1 applic DAILY@2000 TOPIC 05/29/17 20:00 06/24/17 19:59 06/03/17 20:00 Dextrose (Dextrose 50%) STAT PRN IV Hypoglycemia 05/30/17 08:30 06/23/17 08:29 Epoetin Amadou (Procrit (for non ESRD use)) 10,000 units SUN-SUN-SUN SUBQ 05/30/17 21:00 06/24/17 20:59 06/01/17 21:25 Heparin Sodium (Porcine) (Heparin 5000 units/ml) 5,000 units EVERY 12 HOURS SUBQ 05/29/17 21:00 06/22/17 08:59 06/03/17 09:10 Insulin Aspart (NovoLOG) EVERY 6 HOURS SUBQ 05/30/17 00:00 06/23/17 11:29 06/04/17 06:15 Ipratropium [place]ola (Atrovent) 500 mcg Q4HRT HHN 06/02/17 21:00 06/07/17 20:59 06/04/17 06:53 Lansoprazole (Prevacid) 30 mg DAILY GT 05/31/17 09:00 06/30/17 08:59 06/03/17 09:07 Levothyroxine Sodium (Synthroid) 75 mcg ACBREAKFAST GT 05/30/17 06:30 06/21/17 06:29 06/04/17 06:08 Levothyroxine Sodium (Synthroid) 100 mcg ACBREAKFAST GT 05/30/17 06:30 06/21/17 06:29 06/04/17 06:08 Metronidazole (Flagyl) 500 mg Q8H GT 06/01/17 20:00 06/05/17 19:59 06/04/17 04:01 Midodrine (Pro-Amatine) 5 mg BID ORAL 05/31/17 09:00 06/27/17 12:59 06/02/17 18:32 Patient Own Medication (Patient's Own Med) 1 ea BID ORAL 05/30/17 09:00 06/28/17 17:59 06/03/17 18:40 Patient Own Medication (Patient's Own Med) 1 ea QID BOTH EYES 05/29/17 21:00 06/28/17 17:59 06/03/17 21:11 Patient Own Medication (Patient's Own Med) 1 ea QID BOTH EYES 05/29/17 21:00 06/22/17 20:59 06/03/17 21:12 Phosphorus (Phospha 250 Neutral) 250 mg THREE TIMES A DAY GT 06/03/17 13:00 07/03/17 12:59 06/03/17 18:39 ANTIONETTE RODRIGUEZ Jun 04, 2017 08:46
[2017-06-04] MEDS: Heparin 5000 units/ml inj SUBQ SCH ×2 (09:00→20:02)
[2017-06-04 09:18] LABS: ALANINE AMINOTRANSFERASE 21 U/L (12-78); ALBUMIN/GLOBULIN RATIO 0.4 (1.0-2.7); ANION GAP 9 mmol/L (5-15); ASPARTATE AMINO TRANSFERASE 18 U/L (15-37); CALCIUM 8.6 MG/DL (8.5-10.1); CARBON DIOXIDE 28 MMOL/L (21-32); CHLORIDE 105 MMOL/L (98-107); CREATININE 1.4 MG/DL (0.55-1.30); CRP QUANT 2.5 mg/dL (0.00-0.90); GLOMERULAR FILTRATION RATE 38.1 mL/min (>60); MAGNESIUM 2.2 MG/DL (1.8-2.4); PHOSPHORUS 2.9 MG/DL (2.5-4.9); POTASSIUM 4.2 MMOL/L (3.5-5.1); SODIUM 142 MMOL/L (136-145); TOTAL PROTEIN 6.3 G/DL (6.4-8.2); URIC ACID 4.8 MG/DL (2.6-7.2)
[2017-06-04] MEDS: [UNRECOGNIZED DRUG - OTHER] ORAL SCH ×2 (09:40→17:37)
[2017-06-04] MEDS: SYSTANE ULTRA BOTH EYES SCH ×4 (09:40→20:04)
[2017-06-04] MEDS: Atenolol 12.5mg GT SCH (09:41)
[2017-06-04] MEDS: Phospha 250 Neutral tab GT SCH ×2 (09:41→17:38)
[2017-06-04] MEDS: [UNRECOGNIZED DRUG - OTHER] BOTH EYES SCH ×4 (09:42→20:04)
[2017-06-04] MEDS: Amiodarone 200mg tab GT SCH ×2 (09:42→17:38)
--- NOTE | 2017-06-04 10:01 | Nephrology Progress Note ---
Assessment/Plan Problem List: (1) Acute renal failure Assessment: urine out put higher (2) Sepsis (3) UTI (urinary tract infection) (4) Tracheostomy dependence (5) Hypotension Assessment urine out put 770 past 24 h- intake 800 cc H&H higher after transfusion Last HD 05/30 Cr up 1.4 First Dialysed 05/26 and 850 cc removed- Ascitic tap 2 liter removed 05/25 -. Acute renal failure due to ? sepsis , intravascular volume depletion, low BP... Urine out put increasing -. Hypoalbuminemia: - Increase loss: NS - Decrease production: Nutritional -. Shock, sepsis, pneumonia, pericardial effusion. -. History of hypertension, now with low blood pressure. -. Hyperkalemia. improved -. Hyponatremia. improved -. Prerenal azotemia. -. Respiratory failure with tracheostomy. -. Anasarca with ascites. due to low Albumin -. HypoThyroidism . Plan today's labs reviewed K and phos supplement as needed No dialysis , Urine out put higher- on Zaroxyllin Will manage with diuretics PER ORDERS ? DC planning Diet to Nepro- Antibiotics- IV protonix Pulmonary support- Keep BP in check, midodrine when needed Monitor renal parameters- Avoid nephrotoxics per orders talked to SOREN connors customer care consultant and Dr De León 05/23 Long phone conversation with sister who requests transfer to [facility] 05/23 discussed with PHIL Fernandez Subjective ROS Limited/Unobtainable: Yes Objective Objective Last 24 Hour Vital Signs Date Time Temp Pulse Resp B/P (MAP) Pulse Ox O2 Delivery O2 Flow Rate FiO2 06/04/17 08:30 79 16 28 06/04/17 08:00 97.7 78 16 142/81 98 Mechanical Ventilator 28 06/04/17 08:00 28 06/04/17 08:00 79 06/04/17 07:00 69 16 99 Mechanical Ventilator 06/04/17 06:53 83 16 100 Mechanical Ventilator 28 06/04/17 06:53 83 16 28 06/04/17 05:13 76 16 28 06/04/17 04:08 66 16 99 Mechanical Ventilator 06/04/17 04:00 72 06/04/17 04:00 28 06/04/17 04:00 98.9 74 16 147/82 99 Mechanical Ventilator 28 06/04/17 03:49 75 16 28 06/04/17 03:49 67 16 100 Mechanical Ventilator 28 06/04/17 01:42 74 16 28 06/04/17 00:05 16 100 Mechanical Ventilator 28 06/04/17 00:00 76 06/04/17 00:00 28 06/04/17 00:00 98.6 75 16 128/77 100 Mechanical Ventilator 06/04/17 00:00 78 16 99 Mechanical Ventilator 06/03/17 23:53 75 16 100 Mechanical Ventilator 28 06/03/17 23:53 74 15 28 06/03/17 21:41 76 16 28 06/03/17 20:10 71 16 99 Mechanical Ventilator 06/03/17 20:00 70 06/03/17 20:00 98.4 71 16 149/82 99 Mechanical Ventilator 06/03/17 20:00 28 06/03/17 19:51 69 16 100 Mechanical Ventilator 28 06/03/17 19:49 70 16 28 06/03/17 17:04 75 16 28 06/03/17 16:00 74 06/03/17 16:00 28 06/03/17 16:00 97.9 75 16 141/74 98 Mechanical Ventilator 28 06/03/17 15:16 69 16 99 Mechanical Ventilator 06/03/17 15:15 68 16 28 06/03/17 14:45 70 16 99 Mechanical Ventilator 28 06/03/17 12:57 66 16 28 06/03/17 12:00 28 06/03/17 12:00 97.9 71 16 134/75 98 Mechanical Ventilator 28 06/03/17 11:49 71 06/03/17 11:27 70 16 99 Mechanical Ventilator 06/03/17 11:25 70 16 28 06/03/17 10:52 66 16 99 Mechanical Ventilator 28 Laboratory Tests 06/04/17 07:30: White Blood Count 12.3H, Red Blood Count 3.48L, Hemoglobin 10.9L, Hematocrit 34.4L, Mean Corpuscular Volume 99, Mean Corpuscular Hemoglobin 31.3H, Mean Corpuscular Hemoglobin Concent 31.7L, Red Cell Distribution Width 24.0H, Platelet Count 392, Mean Platelet Volume 7.4, Neutrophils (%) (Auto) 82.2H, Lymphocytes (%) (Auto) 10.8L, Monocytes (%) (Auto) 4.8, Eosinophils (%) (Auto) 1.4, Basophils (%) (Auto) 0.9, Sodium Level 142, Potassium Level 4.2, Chloride Level 105, Carbon Dioxide Level 28, Anion Gap 9, Blood Urea Nitrogen 59H, Creatinine 1.4H, Estimat Glomerular Filtration Rate 38.1, Glucose Level 133H, Uric Acid 4.8, Calcium Level 8.6, Phosphorus Level 2.9, Magnesium Level 2.2, Total Bilirubin 0.7, Aspartate Amino Transf (AST/SGOT) 18, Alanine Aminotransferase (ALT/SGPT) 21, Alkaline Phosphatase 135H, C-Reactive Protein, Quantitative 2.5H, Pro-B-Type Natriuretic Peptide 2696H, Total Protein 6.3L, Albumin 1.9L, Globulin 4.4, Albumin/Globulin Ratio 0.4L Height (Feet): 5 Height (Inches): 0.00 Weight (Pounds): 235 General Appearance: no apparent distress Cardiovascular: normal rate Respiratory/Chest: decreased breath sounds Abdomen: soft Extremities: other - edematous Objective no other changes QIANA SALGADO Jun 04, 2017 10:01
[2017-06-04] MEDS: metOLazone 2.5 MG TAB ORAL SCH (10:16)
--- NOTE | 2017-06-04 10:21 | Cardiology Report ---
APPROVED REPORT EXAM: Two-dimensional and M-mode echocardiogram with Doppler and color Doppler. M-Mode DIMENSIONS Left Atrium (MM)2.7 (1.6-4.0cm) Aortic Root3.2 (2.0-3.7cm) Aortic Cusp Exc.1.8 (1.5-2.0cm) Technically difficult study due to poor acoustical windows and patient on ventilator. M-mode measurements of left ventricle not obtainable due to cardiac position (angle) Normal left ventricular chamber size, systolic function and wall motion to extent visualized. Left ventricular ejection fraction estimated to be grossly normal to the extent visualized. Echogenic material in the pericardial space noted anterior to the RV and apex still persists as in echo done in Apr 2017 without change. No free fluid. May be fat pad. Small posterior pericardial effusion. All other cardiac chamber sizes are within normal limits. Mild Focal aortic valve sclerosis with adequate cusp excursion. Mild Thickened mitral valve leaflets with normal excursion. Mild Mitral annulus and aortic root calcification. Pulmonic valve not well visualized. Valveualr details is very poor defined . IVC dilated at 2.4 cm with slight physiologic collapse suggestive of increased RA pressure. A color flow and spectral Doppler study was performed and revealed: No aortic regurgitation. Mild mitral regurgitation. Mitral diastolic velocities suggest reduced left ventricular relaxation c/w mild LV diastolic dysfunction (Grade I ). Mild tricuspid regurgitation. Tricuspid systolic velocities suggests peak right ventricular systolic pressure of 30 mmHg, consistent with pulmonary hypertension.
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
[2017-06-04 11:03] LABS: APPEARANCE,URINE CLEAR; KETONES,URINE NEGATIVE (NEGATIVE); LEUKOCYTE ESTERASE ,URINE 1+ (NEGATIVE); NITRITE,URINE NEGATIVE (NEGATIVE); PH,URINE 9 (4.5-8.0); PROTEIN,URINE 3+ (NEGATIVE); UROBILINOGEN,URINE NORMAL MG/DL (0.0-1.0)
[2017-06-04 11:28] LABS: BACTERIA,URINE OCCASIONAL /HPF; SQUAMOUS EPITHELIAL CELL,UR FEW /LPF (NONE/OCC)
[2017-06-04 12:00] VITALS: BP 149/87
--- NOTE | 2017-06-04 12:00 | Infectious Diseases Prog Note ---
Assessment/Plan Assessment/Plan A 1. klebsiella UTI 2. leucocytosis improving 3. respiratory failure 4. DM 5. HPN 6. anoxic brain injury 7. Anasarca 8. Pericardial effusion 9. ascites P 1. Continue Cefepime & Flagyl X 1 day 2. will f/u cultures Subjective ROS Limited/Unobtainable: Yes Allergies: Coded Allergies: OLANZAPINE (Verified Allergy, Severe, RESP FAILURE, 11/25/13) VANCOMYCIN (Verified Allergy, Severe, 11/25/13) PIPERACILLIN (Verified Allergy, Intermediate, HIVES, 11/25/13) TAZOBACTAM (Verified Allergy, Intermediate, HIVES, 11/25/13) Objective Vital Signs Last 24 Hour Vital Signs Date Time Temp Pulse Resp B/P (MAP) Pulse Ox O2 Delivery O2 Flow Rate FiO2 06/04/17 11:13 76 16 99 Mechanical Ventilator 06/04/17 11:03 80 16 28 06/04/17 11:03 80 16 100 Mechanical Ventilator 06/04/17 08:30 79 16 28 06/04/17 08:00 97.7 78 16 142/81 98 Mechanical Ventilator 06/04/17 08:00 28 06/04/17 08:00 79 06/04/17 07:00 69 16 99 Mechanical Ventilator 06/04/17 06:53 83 16 100 Mechanical Ventilator 06/04/17 06:53 83 16 28 06/04/17 05:13 76 16 28 06/04/17 04:08 66 16 99 Mechanical Ventilator 06/04/17 04:00 72 06/04/17 04:00 28 06/04/17 04:00 98.9 74 16 147/82 99 Mechanical Ventilator 06/04/17 03:49 75 16 28 06/04/17 03:49 67 16 100 Mechanical Ventilator 06/04/17 01:42 74 16 28 06/04/17 00:05 16 100 Mechanical Ventilator 06/04/17 00:00 76 06/04/17 00:00 28 06/04/17 00:00 98.6 75 16 128/77 100 Mechanical Ventilator 06/04/17 00:00 78 16 99 Mechanical Ventilator 06/03/17 23:53 75 16 100 Mechanical Ventilator 28 06/03/17 23:53 74 15 28 06/03/17 21:41 76 16 28 06/03/17 20:10 71 16 99 Mechanical Ventilator 06/03/17 20:00 70 06/03/17 20:00 98.4 71 16 149/82 99 Mechanical Ventilator 06/03/17 20:00 28 06/03/17 19:51 69 16 100 Mechanical Ventilator 28 06/03/17 19:49 70 16 28 06/03/17 17:04 75 16 28 06/03/17 16:00 74 06/03/17 16:00 28 06/03/17 16:00 97.9 75 16 141/74 98 Mechanical Ventilator 28 06/03/17 15:16 69 16 99 Mechanical Ventilator 06/03/17 15:15 68 16 28 06/03/17 14:45 70 16 99 Mechanical Ventilator 28 06/03/17 12:57 66 16 28 06/03/17 12:00 28 06/03/17 12:00 97.9 71 16 134/75 98 Mechanical Ventilator 28 Height (Feet): 5 Height (Inches): 0.00 Weight (Pounds): 235 HEENT: status post trach Respiratory/Chest: lungs clear, other - on ventilator Cardiovascular: normal rate, other - RIJ Sandip catheter Abdomen: soft, non tender, other - GT feeding Extremities: other - edema, R arm PICC line Neurologic/Psychiatric: other - opens eyes Laboratory Tests Test 06/04/17 07:30 06/04/17 10:20 White Blood Count 12.3 K/UL (4.8-10.8) H Red Blood Count 3.48 M/UL (4.20-5.40) L Hemoglobin 10.9 G/DL (12.0-16.0) L Hematocrit 34.4 % (37.0-47.0) L Mean Corpuscular Volume 99 FL (80-99) Mean Corpuscular Hemoglobin 31.3 PG (27.0-31.0) H Mean Corpuscular Hemoglobin Concent 31.7 G/DL (32.0-36.0) L Red Cell Distribution Width 24.0 % (11.6-14.8) H Platelet Count 392 K/UL (150-450) Mean Platelet Volume 7.4 FL (6.5-10.1) Neutrophils (%) (Auto) 82.2 % (45.0-75.0) H Lymphocytes (%) (Auto) 10.8 % (20.0-45.0) L Monocytes (%) (Auto) 4.8 % (1.0-10.0) Eosinophils (%) (Auto) 1.4 % (0.0-3.0) Basophils (%) (Auto) 0.9 % (0.0-2.0) Sodium Level 142 MMOL/L (136-145) Potassium Level 4.2 MMOL/L (3.5-5.1) Chloride Level 105 MMOL/L (98-107) Carbon Dioxide Level 28 MMOL/L (21-32) Anion Gap 9 mmol/L (5-15) Blood Urea Nitrogen 59 mg/dL (7-18) H Creatinine 1.4 MG/DL (0.55-1.30) H Estimat Glomerular Filtration Rate 38.1 mL/min (>60) Glucose Level 133 MG/DL (74-106) H Uric Acid 4.8 MG/DL (2.6-7.2) Calcium Level 8.6 MG/DL (8.5-10.1) Phosphorus Level 2.9 MG/DL (2.5-4.9) Magnesium Level 2.2 MG/DL (1.8-2.4) Total Bilirubin 0.7 MG/DL (0.2-1.0) Aspartate Amino Transf (AST/SGOT) 18 U/L (15-37) Alanine Aminotransferase (ALT/SGPT) 21 U/L (12-78) Alkaline Phosphatase 135 U/L (46-116) H C-Reactive Protein, Quantitative 2.5 mg/dL (0.00-0.90) H Pro-B-Type Natriuretic Peptide 2696 pg/mL (0-125) H Total Protein 6.3 G/DL (6.4-8.2) L Albumin 1.9 G/DL (3.4-5.0) L Globulin 4.4 g/dL Albumin/Globulin Ratio 0.4 (1.0-2.7) L Urine Color Yellow Urine Appearance Clear Urine pH 9 (4.5-8.0) Urine Specific [place] 1.015 (1.005-1.035) Urine Protein 3+ (NEGATIVE) H Urine Glucose (UA) Negative (NEGATIVE) Urine Ketones Negative (NEGATIVE) Urine Occult Blood 2+ (NEGATIVE) H Urine Nitrite Negative (NEGATIVE) Urine Bilirubin Negative (NEGATIVE) Urine Urobilinogen Normal MG/DL (0.0-1.0) Urine Leukocyte Esterase 1+ (NEGATIVE) H Urine RBC 2-4 /HPF (0 - 2) H Urine WBC 2-4 /HPF (0 - 2) Urine Squamous Epithelial Cells Few /LPF (NONE/OCC) Urine Bacteria Occasional /HPF (NONE) Urine Random Sodium 115 MEQ/L (20-110) H Current Medications Medications (Trade) Dose Ordered Sig/Alex Route PRN Reason Start Time Stop Time Status Last Admin Dose Admin Acetaminophen (Tylenol) 650 mg Q6H PRN GT Mild Pain/Temp > 100.5 05/30/17 01:15 06/22/17 19:14 Albuterol Sulfate (Proventil) 2.5 mg Q4HRT HHN 06/02/17 21:00 06/07/17 20:59 06/04/17 11:03 Allopurinol (Zyloprim) 100 mg DAILY GT 06/05/17 09:00 07/05/17 08:59 Amiodarone HCl (Cordarone) 200 mg BID GT 06/01/17 09:00 06/26/17 20:59 06/04/17 09:42 Atenolol (Tenormin) 12.5 mg DAILY GT 05/30/17 09:00 06/24/17 10:59 06/04/17 09:41 Bisacodyl (Dulcolax) 5 mg DAILYPRN PRN RECTAL Constipation 05/29/17 20:30 06/22/17 20:29 Cefepime HCl 2 gm/ Dextrose 55 ml @ 110 mls/hr Q24H IV 05/30/17 21:00 06/06/17 20:59 06/03/17 21:11 Chlorhexidine Gluconate (Rubina-Hex 2%) 1 applic DAILY@2000 TOPIC 05/29/17 20:00 06/24/17 19:59 06/03/17 20:00 Dextrose (Dextrose 50%) STAT PRN IV Hypoglycemia 05/30/17 08:30 06/23/17 08:29 Epoetin Amadou (Procrit (for non ESRD use)) 10,000 units MON-WED-FRI SUBQ 05/30/17 21:00 06/24/17 20:59 06/01/17 21:25 Heparin Sodium (Porcine) (Heparin 5000 units/ml) 5,000 units EVERY 12 HOURS SUBQ 05/29/17 21:00 06/22/17 08:59 06/03/17 09:10 Insulin Aspart (NovoLOG) EVERY 6 HOURS SUBQ 05/30/17 00:00 06/23/17 11:29 06/04/17 06:15 Ipratropium [place] (Atrovent) 500 mcg Q4HRT HHN 06/02/17 21:00 06/07/17 20:59 06/04/17 11:03 Lansoprazole (Prevacid) 30 mg DAILY GT 05/31/17 09:00 06/30/17 08:59 06/04/17 09:41 Levothyroxine Sodium (Synthroid) 75 mcg ACBREAKFAST GT 05/30/17 06:30 06/21/17 06:29 06/04/17 06:08 Levothyroxine Sodium (Synthroid) 100 mcg ACBREAKFAST GT 05/30/17 06:30 06/21/17 06:29 06/04/17 06:08 Metolazone (Zaroxolyn) 2.5 mg DAILY ORAL 06/04/17 10:00 07/04/17 09:59 06/04/17 10:16 Metronidazole (Flagyl) 500 mg Q8H GT 06/01/17 20:00 06/05/17 19:59 06/04/17 04:01 Midodrine (Pro-[place]) 10 mg TIDPRN PRN ORAL bp below 100 syst 06/04/17 13:00 07/04/17 12:59 Patient Own Medication (Patient's Own Med) 1 ea BID ORAL 05/30/17 09:00 06/28/17 17:59 06/04/17 09:40 Patient Own Medication (Patient's Own Med) 1 ea QID BOTH EYES 05/29/17 21:00 06/28/17 17:59 06/04/17 09:40 Patient Own Medication (Patient's Own Med) 1 ea QID BOTH EYES 05/29/17 21:00 06/22/17 20:59 06/04/17 09:42 Phosphorus (Phospha 250 Neutral) 250 mg BID GT 06/04/17 18:00 07/03/17 12:59 EPIFANIO NGUYEN Jun 04, 2017 12:00
[2017-06-04] MEDS ORDERED: Midodrine 10mg tab ORAL PRN (13:00)
--- NOTE | 2017-06-04 13:04 | General Progress Note ---
Assessment/Plan Problem List: (1) Sepsis ICD Codes: A41.9 - Sepsis, unspecified organism SNOMED: 52784702 (2) Pneumonia ICD Codes: J18.9 - Pneumonia, unspecified organism SNOMED: 389428768 (3) Acute renal failure ICD Codes: N17.9 - Acute kidney failure, unspecified SNOMED: 96867665 (4) Pericardial effusion ICD Codes: I31.3 - Pericardial effusion (noninflammatory) SNOMED: 726029634 (5) Tracheostomy malfunction ICD Codes: J95.03 - Malfunction of tracheostomy stoma SNOMED: 62138251 (6) UTI (urinary tract infection) ICD Codes: N39.0 - Urinary tract infection, site not specified SNOMED: 61772707, 170033708 Qualifiers: Qualified Codes: N30.01 - Acute cystitis with hematuria Status: stable Assessment/Plan HD per renal diuresis iv abx per id monitor wbc- improving vent support resp rx monitor renal fxn poor prognosis. d/w caregiver. transfuse as needed dnr prognosis remains poor percardial effusion better- no need to transfer per cards Subjective ROS Limited/Unobtainable: No Constitutional: Reports: malaise, weakness HEENT: Reports: no symptoms Cardiovascular: Reports: edema Respiratory: Reports: shortness of breath, sputum Gastrointestinal/Abdominal: Reports: abdomen distended, difficulty swallowing Genitourinary: Reports: no symptoms Neurologic/Psychiatric: Reports: pre-existing deficit Endocrine: Reports: no symptoms Hematologic/Lymphatic: Reports: anemia Allergies: Coded Allergies: OLANZAPINE (Verified Allergy, Severe, RESP FAILURE, 11/25/13) VANCOMYCIN (Verified Allergy, Severe, 11/25/13) PIPERACILLIN (Verified Allergy, Intermediate, HIVES, 11/25/13) TAZOBACTAM (Verified Allergy, Intermediate, HIVES, 11/25/13) All Systems: reviewed and negative except above Subjective no events. d/w computer video game designer at the bedside. c/o worsening edema. not improved. otherwise no new events or concerns. Objective Last 24 Hour Vital Signs Date Time Temp Pulse Resp B/P (MAP) Pulse Ox O2 Delivery O2 Flow Rate FiO2 06/04/17 12:00 66 06/04/17 12:00 28 06/04/17 12:00 98.2 70 16 149/87 99 Mechanical Ventilator 28 06/04/17 11:13 76 16 99 Mechanical Ventilator 06/04/17 11:03 80 16 28 06/04/17 11:03 80 16 100 Mechanical Ventilator 28 06/04/17 08:30 79 16 28 06/04/17 08:00 97.7 78 16 142/81 98 Mechanical Ventilator 28 06/04/17 08:00 28 06/04/17 08:00 79 06/04/17 07:00 69 16 99 Mechanical Ventilator 06/04/17 06:53 83 16 100 Mechanical Ventilator 28 06/04/17 06:53 83 16 28 06/04/17 05:13 76 16 28 06/04/17 04:08 66 16 99 Mechanical Ventilator 06/04/17 04:00 72 06/04/17 04:00 28 06/04/17 04:00 98.9 74 16 147/82 99 Mechanical Ventilator 28 06/04/17 03:49 75 16 28 06/04/17 03:49 67 16 100 Mechanical Ventilator 28 06/04/17 01:42 74 16 28 06/04/17 00:05 16 100 Mechanical Ventilator 28 06/04/17 00:00 76 06/04/17 00:00 28 06/04/17 00:00 98.6 75 16 128/77 100 Mechanical Ventilator 06/04/17 00:00 78 16 99 Mechanical Ventilator 06/03/17 23:53 75 16 100 Mechanical Ventilator 28 06/03/17 23:53 74 15 28 06/03/17 21:41 76 16 28 06/03/17 20:10 71 16 99 Mechanical Ventilator 06/03/17 20:00 70 06/03/17 20:00 98.4 71 16 149/82 99 Mechanical Ventilator 06/03/17 20:00 28 06/03/17 19:51 69 16 100 Mechanical Ventilator 28 06/03/17 19:49 70 16 28 06/03/17 17:04 75 16 28 06/03/17 16:00 74 06/03/17 16:00 28 06/03/17 16:00 97.9 75 16 141/74 98 Mechanical Ventilator 28 06/03/17 15:16 69 16 99 Mechanical Ventilator 06/03/17 15:15 68 16 28 06/03/17 14:45 70 16 99 Mechanical Ventilator 28 Intake and Output 06/04/17 06/05/17 19:00 07:00 Intake Total 280 ml Balance 280 ml Free Water 50 ml Tube Feeding 200 ml Other 30 ml # Bowel Movements 2 Laboratory Tests 06/04/17 07:30: White Blood Count 12.3H, Red Blood Count 3.48L, Hemoglobin 10.9L, Hematocrit 34.4L, Mean Corpuscular Volume 99, Mean Corpuscular Hemoglobin 31.3H, Mean Corpuscular Hemoglobin Concent 31.7L, Red Cell Distribution Width 24.0H, Platelet Count 392, Mean Platelet Volume 7.4, Neutrophils (%) (Auto) 82.2H, Lymphocytes (%) (Auto) 10.8L, Monocytes (%) (Auto) 4.8, Eosinophils (%) (Auto) 1.4, Basophils (%) (Auto) 0.9, Sodium Level 142, Potassium Level 4.2, Chloride Level 105, Carbon Dioxide Level 28, Anion Gap 9, Blood Urea Nitrogen 59H, Creatinine 1.4H, Estimat Glomerular Filtration Rate 38.1, Glucose Level 133H, Uric Acid 4.8, Calcium Level 8.6, Phosphorus Level 2.9, Magnesium Level 2.2, Total Bilirubin 0.7, Aspartate Amino Transf (AST/SGOT) 18, Alanine Aminotransferase (ALT/SGPT) 21, Alkaline Phosphatase 135H, C-Reactive Protein, Quantitative 2.5H, Pro-B-Type Natriuretic Peptide 2696H, Total Protein 6.3L, Albumin 1.9L, Globulin 4.4, Albumin/Globulin Ratio 0.4L 06/04/17 10:20: Urine Color Yellow, Urine Appearance Clear, Urine pH 9, Urine Specific [place] 1.015, Urine Protein 3+H, Urine Glucose (UA) Negative, Urine Ketones Negative, Urine Occult Blood 2+H, Urine Nitrite Negative, Urine Bilirubin Negative, Urine Urobilinogen Normal, Urine Leukocyte Esterase 1+H, Urine RBC 2-4H, Urine WBC 2-4 , Urine Squamous Epithelial Cells Few, Urine Bacteria Occasional, Urine Random Sodium 115H Height (Feet): 5 Height (Inches): 0.00 Weight (Pounds): 235 Objective General Appearance: WD/WN, alert Neck: supple Cardiovascular: regular rhythm Respiratory/Chest: lungs clear Abdomen: hypoactive bowel sounds, distended Edema: severe edema Neurologic: unresponsive OCHOA BISWAS Jun 04, 2017 13:04
[2017-06-04 16:00] VITALS: BP 138/86
[2017-06-04] MEDS ORDERED: NS 500ML ONE (18:19)
[2017-06-04] MEDS ORDERED: Sterile Water Irrig 1000ml IRRIG ONE (18:19)
[2017-06-04 20:00] VITALS: BP 132/83
[2017-06-04] MEDS: Dyna-Hex 2% Top Sol 2oz TOPIC SCH (20:03)
[2017-06-04] MEDS: Epogen (for non ESRD use) SUBQ SCH (20:04)
[2017-06-04] MEDS: Cefepime HCl 2 GM in D5W 55 ML IV SCH (20:13)
--- NOTE | 2017-06-04 20:30 | Operative Note - Dictated ---
DATE OF OPERATION: 06/04/2017 BRONCHOSCOPY REPORT SURGEON: Maykel Evans M.D. PREOPERATIVE DIAGNOSES: Mucus plugging and elevated peak inspiratory pressure. POSTOPERATIVE DIAGNOSES: Mucus plugging and elevated peak inspiratory pressure. INDICATION: Persistent elevation in peak inspiratory pressure, concern for mucus plugs. CONSENT: After risks and benefits of the procedure were explained to the patient's sister, a signed informed consent was obtained and placed in the chart. PROCEDURE: Using no additional conscious sedation, a fiberoptic bronchoscope was passed via the tracheostomy. The patient's airways were evaluated in detail. There was no significant tracheobronchitis. There were minimal secretions which were mostly white in color. There were some mucus pugs noted in both right and left lungs, which were easily suctioned and lavaged. The patient's airways were otherwise clear. The patient tolerated the procedure well and remained on the ventilator throughout the procedure. Blood pressure, EKG, and oximetry were continuously monitored during the procedure and were noted to be within the normal range. FINDINGS: 1. Moderate amount of mucus plugs. 2. No endobronchial lesions. 3. No significant tracheobronchitis. SPECIMEN: Sent for routine cultures, Gram stain and bacterial culture. DISPOSITION: To remain in the ESTEBAN and we will update the sister as to results. Maykel Evans M.D. DR: JONATHAN JOB#: [id number] CC:
--- NOTE | 2017-06-04 22:15 | Progress Note ---
DATE: 06/04/2017 CARDIOLOGY PROGRESS NOTE SUBJECTIVE: Case is reviewed with caregivers at bedside. The patient remains in sinus rhythm with no new episodes of atrial fibrillation. She is on ventilator support via tracheostomy. Urine output approximately 800 mL matching intake. She was transfused several days ago. OBJECTIVE: LUNGS: Bilateral breath sounds with few rhonchi, has thick secretions. HEART: Regular rhythm and rate. Normal S1 and S2 with no murmur appreciated. ABDOMEN: Soft. G-tube intact. EXTREMITIES: A 1+ dependent edema. LABORATORY STUDIES: White count 12.3 and hemoglobin 10.9. Potassium 4.2, BUN 59, and creatinine 1.4. Albumin 1.9. Pro-natriuretic peptide 2600. IMPRESSION: 1. Respiratory failure. 2. Healthcare-acquired pneumonia. 3. Paroxysmal atrial fibrillation. 4. Acute on chronic diastolic congestive heart failure. 5. Severe protein-calorie malnutrition. 6. Pericardial fluid accumulation of no hemodynamic significance. 7. Hypothyroidism. No clinical signs or echocardiographic signs of tamponade. PLAN: 1. No indication for pericardiocentesis. 2. We will continue to monitor periodically. 3. Continue amiodarone at maintenance dosing. 4. Protein supplement by feeding tube. 5. Antimicrobials and respiratory hygiene per chicken stuffer. 6. Thyroid replacement. 7. Discharge planning. Ramo Toure M.D. DR: Marely JOB#: [id number] CC:
--- NOTE | 2017-06-04 22:34 | General Progress Note ---
Assessment/Plan Assessment/Plan Assessment - Encephalopathy - Resp failure - Trach - dysphagia - PEG - abnormal LFT--> Improving - edema / anasarca - abd distention due to ascites - no SBP on tap - UTI/PNA - leukocytosis --> Improving - azotemia - slightly higher Cr today - pericardial effusion - marked thrombocytosis - resolved - poor Px Recommendations - continue TF - f/u hepatitis serologies --> Negative - hold off on GT change - check C Diff - will need periodic paracentesis - continue abx - watch Cr Subjective Allergies: Coded Allergies: OLANZAPINE (Verified Allergy, Severe, RESP FAILURE, 11/25/13) VANCOMYCIN (Verified Allergy, Severe, 11/25/13) PIPERACILLIN (Verified Allergy, Intermediate, HIVES, 11/25/13) TAZOBACTAM (Verified Allergy, Intermediate, HIVES, 11/25/13) Subjective d/w RN tolerating TF abd distended without change Objective Last 24 Hour Vital Signs Date Time Temp Pulse Resp B/P (MAP) Pulse Ox O2 Delivery O2 Flow Rate FiO2 06/04/17 20:17 75 16 99 Mechanical Ventilator 06/04/17 20:00 71 06/04/17 20:00 98.1 75 18 132/83 100 Mechanical Ventilator 75 06/04/17 20:00 28 06/04/17 19:35 73 16 100 Mechanical Ventilator 28 06/04/17 19:34 73 16 28 06/04/17 16:59 71 16 28 06/04/17 16:00 73 06/04/17 16:00 28 06/04/17 16:00 98.1 73 16 138/86 99 Mechanical Ventilator 06/04/17 15:15 72 16 99 Mechanical Ventilator 06/04/17 15:00 69 16 100 Mechanical Ventilator 28 06/04/17 15:00 69 16 28 06/04/17 13:20 68 16 28 06/04/17 12:00 66 06/04/17 12:00 28 06/04/17 12:00 98.2 70 16 149/87 99 Mechanical Ventilator 06/04/17 11:13 76 16 99 Mechanical Ventilator 06/04/17 11:03 80 16 28 06/04/17 11:03 80 16 100 Mechanical Ventilator 06/04/17 08:30 79 16 28 06/04/17 08:00 97.7 78 16 142/81 98 Mechanical Ventilator 28 06/04/17 08:00 28 06/04/17 08:00 79 06/04/17 07:00 69 16 99 Mechanical Ventilator 06/04/17 06:53 83 16 100 Mechanical Ventilator 28 06/04/17 06:53 83 16 28 06/04/17 05:13 76 16 28 06/04/17 04:08 66 16 99 Mechanical Ventilator 06/04/17 04:00 72 06/04/17 04:00 28 06/04/17 04:00 98.9 74 16 147/82 99 Mechanical Ventilator 28 06/04/17 03:49 75 16 28 06/04/17 03:49 67 16 100 Mechanical Ventilator 28 06/04/17 01:42 74 16 28 06/04/17 00:05 16 100 Mechanical Ventilator 28 06/04/17 00:00 76 06/04/17 00:00 28 06/04/17 00:00 98.6 75 16 128/77 100 Mechanical Ventilator 06/04/17 00:00 78 16 99 Mechanical Ventilator 06/03/17 23:53 75 16 100 Mechanical Ventilator 28 06/03/17 23:53 74 15 28 Intake and Output 06/04/17 06/05/17 19:00 07:00 Intake Total 690 ml 260 ml Output Total 450 ml Balance 240 ml 260 ml Free Water 50 ml IV Total 110 ml Tube Feeding 550 ml 150 ml Other 90 ml Output Urine Total 450 ml # Bowel Movements 4 1 Laboratory Tests 06/04/17 07:30: White Blood Count 12.3H, Red Blood Count 3.48L, Hemoglobin 10.9L, Hematocrit 34.4L, Mean Corpuscular Volume 99, Mean Corpuscular Hemoglobin 31.3H, Mean Corpuscular Hemoglobin Concent 31.7L, Red Cell Distribution Width 24.0H, Platelet Count 392, Mean Platelet Volume 7.4, Neutrophils (%) (Auto) 82.2H, Lymphocytes (%) (Auto) 10.8L, Monocytes (%) (Auto) 4.8, Eosinophils (%) (Auto) 1.4, Basophils (%) (Auto) 0.9, Sodium Level 142, Potassium Level 4.2, Chloride Level 105, Carbon Dioxide Level 28, Anion Gap 9, Blood Urea Nitrogen 59H, Creatinine 1.4H, Estimat Glomerular Filtration Rate 38.1, Glucose Level 133H, Uric Acid 4.8, Calcium Level 8.6, Phosphorus Level 2.9, Magnesium Level 2.2, Total Bilirubin 0.7, Aspartate Amino Transf (AST/SGOT) 18, Alanine Aminotransferase (ALT/SGPT) 21, Alkaline Phosphatase 135H, C-Reactive Protein, Quantitative 2.5H, Pro-B-Type Natriuretic Peptide 2696H, Total Protein 6.3L, Albumin 1.9L, Globulin 4.4, Albumin/Globulin Ratio 0.4L 06/04/17 10:20: Urine Color Yellow, Urine Appearance Clear, Urine pH 9, Urine Specific [place] 1.015, Urine Protein 3+H, Urine Glucose (UA) Negative, Urine Ketones Negative, Urine Occult Blood 2+H, Urine Nitrite Negative, Urine Bilirubin Negative, Urine Urobilinogen Normal, Urine Leukocyte Esterase 1+H, Urine RBC 2-4H, Urine WBC 2-4 , Urine Squamous Epithelial Cells Few, Urine Bacteria Occasional, Urine Random Sodium 115H Height (Feet): 5 Height (Inches): 0.00 Weight (Pounds): 235 Objective Obese WW NCAT supple Chest: coarse BS RRR obese, firm and distended abd, (+) GT (++) edema / anasarca OBS DEVONTEJILL Jun 04, 2017 22:34
[2017-06-05] VITALS: BP 129/70
[2017-06-05] MEDS: metroNIDAZOLE 500mg tab GT SCH ×2 (03:22→12:18)
[2017-06-05] MEDS: Ipratropium 0.02% Inh Soln 2.5ml UD HHN SCH ×6 (03:58→23:15)
[2017-06-05] MEDS: Albuterol ud Inhalation HHN SCH ×6 (03:58→23:15)
[2017-06-05 04:00] VITALS: BP 126/76
[2017-06-05] MEDS: NovoLOG Insulin Flexpen SUBQ SCH ×4 (06:07→23:13)
[2017-06-05 06:48] LABS: BASOPHILS % (AUTO) 1.3 % (0.0-2.0); EOSINOPHILS % (AUTO) 2.1 % (0.0-3.0); LYMPHOCYTES % (AUTO) 9.7 % (20.0-45.0); MEAN CORPUSCULAR HEMOGLOBIN 33.4 PG (27.0-31.0); MEAN CORPUSCULAR HGB CONC 33.4 G/DL (32.0-36.0); MEAN CORPUSCULAR VOLUME 100 FL (80-99); MEAN PLATELET VOLUME 7.6 FL (6.5-10.1); MONOCYTES % (AUTO) 5.2 % (1.0-10.0); NEUTROPHILS % (AUTO) 81.7 % (45.0-75.0); PLATELET COUNT 361 K/UL (150-450); RED CELL DISTRIBUTION WIDTH 23.2 % (11.6-14.8); WHITE BLOOD COUNT 12.3 K/UL (4.8-10.8)
--- NOTE | 2017-06-05 07:20 | General Progress Note ---
Assessment/Plan Problem List: (1) Sepsis ICD Codes: A41.9 - Sepsis, unspecified organism SNOMED: 52214419 (2) Pneumonia ICD Codes: J18.9 - Pneumonia, unspecified organism SNOMED: 506538857 (3) Acute renal failure ICD Codes: N17.9 - Acute kidney failure, unspecified SNOMED: 37065984 (4) Pericardial effusion ICD Codes: I31.3 - Pericardial effusion (noninflammatory) SNOMED: 436596426 (5) Tracheostomy malfunction ICD Codes: J95.03 - Malfunction of tracheostomy stoma SNOMED: 89248057 (6) UTI (urinary tract infection) ICD Codes: N39.0 - Urinary tract infection, site not specified SNOMED: 57597321, 008963248 Qualifiers: Qualified Codes: N30.01 - Acute cystitis with hematuria Status: stable Assessment/Plan try to declot picc diuresis iv abx per id monitor wbc- improving vent support resp rx monitor renal fxn poor prognosis. d/w caregiver. transfuse as needed dnr prognosis remains poor percardial effusion better- no need to transfer per cards Subjective ROS Limited/Unobtainable: Yes Constitutional: Reports: malaise, weakness HEENT: Reports: no symptoms Cardiovascular: Reports: edema Respiratory: Reports: shortness of breath, sputum Gastrointestinal/Abdominal: Reports: abdomen distended Genitourinary: Reports: no symptoms Neurologic/Psychiatric: Reports: pre-existing deficit Endocrine: Reports: no symptoms Hematologic/Lymphatic: Reports: anemia Allergies: Coded Allergies: OLANZAPINE (Verified Allergy, Severe, RESP FAILURE, 11/25/13) VANCOMYCIN (Verified Allergy, Severe, 11/25/13) PIPERACILLIN (Verified Allergy, Intermediate, HIVES, 11/25/13) TAZOBACTAM (Verified Allergy, Intermediate, HIVES, 11/25/13) All Systems: reviewed and negative except above Subjective no events. d/w certified nurse practitioner at the bedside. c/o edema- stable. requesting bumex be used(pt responded better in the past) Objective Last 24 Hour Vital Signs Date Time Temp Pulse Resp B/P (MAP) Pulse Ox O2 Delivery O2 Flow Rate FiO2 06/05/17 04:49 72 16 28 06/05/17 04:20 72 16 99 Mechanical Ventilator 06/05/17 04:00 97.3 73 20 126/76 96 Mechanical Ventilator 73 06/05/17 04:00 74 06/05/17 04:00 28 06/05/17 03:59 71 16 100 Mechanical Ventilator 28 06/05/17 03:58 71 16 28 06/05/17 00:59 78 16 28 06/05/17 00:00 82 06/05/17 00:00 28 06/05/17 00:00 98.1 81 16 129/70 97 Mechanical Ventilator 81 06/04/17 23:20 78 16 99 Mechanical Ventilator 06/04/17 23:05 79 16 100 Mechanical Ventilator 28 06/04/17 23:03 79 16 28 06/04/17 20:17 75 16 99 Mechanical Ventilator 06/04/17 20:00 71 06/04/17 20:00 98.1 75 18 132/83 100 Mechanical Ventilator 75 06/04/17 20:00 28 06/04/17 19:50 75 16 99 Mechanical Ventilator 06/04/17 19:35 73 16 100 Mechanical Ventilator 28 06/04/17 19:34 73 16 28 06/04/17 16:59 71 16 28 06/04/17 16:00 73 06/04/17 16:00 28 06/04/17 16:00 98.1 73 16 138/86 99 Mechanical Ventilator 28 06/04/17 15:15 72 16 99 Mechanical Ventilator 06/04/17 15:00 69 16 100 Mechanical Ventilator 28 06/04/17 15:00 69 16 28 06/04/17 13:20 68 16 28 06/04/17 12:00 66 06/04/17 12:00 28 06/04/17 12:00 98.2 70 16 149/87 99 Mechanical Ventilator 28 06/04/17 11:13 76 16 99 Mechanical Ventilator 06/04/17 11:03 80 16 28 06/04/17 11:03 80 16 100 Mechanical Ventilator 28 06/04/17 08:30 79 16 28 06/04/17 08:00 97.7 78 16 142/81 98 Mechanical Ventilator 28 06/04/17 08:00 28 06/04/17 08:00 79 Laboratory Tests 06/04/17 07:30: White Blood Count 12.3H, Red Blood Count 3.48L, Hemoglobin 10.9L, Hematocrit 34.4L, Mean Corpuscular Volume 99, Mean Corpuscular Hemoglobin 31.3H, Mean Corpuscular Hemoglobin Concent 31.7L, Red Cell Distribution Width 24.0H, Platelet Count 392, Mean Platelet Volume 7.4, Neutrophils (%) (Auto) 82.2H, Lymphocytes (%) (Auto) 10.8L, Monocytes (%) (Auto) 4.8, Eosinophils (%) (Auto) 1.4, Basophils (%) (Auto) 0.9, Sodium Level 142, Potassium Level 4.2, Chloride Level 105, Carbon Dioxide Level 28, Anion Gap 9, Blood Urea Nitrogen 59H, Creatinine 1.4H, Estimat Glomerular Filtration Rate 38.1, Glucose Level 133H, Uric Acid 4.8, Calcium Level 8.6, Phosphorus Level 2.9, Magnesium Level 2.2, Total Bilirubin 0.7, Aspartate Amino Transf (AST/SGOT) 18, Alanine Aminotransferase (ALT/SGPT) 21, Alkaline Phosphatase 135H, C-Reactive Protein, Quantitative 2.5H, Pro-B-Type Natriuretic Peptide 2696H, Total Protein 6.3L, Albumin 1.9L, Globulin 4.4, Albumin/Globulin Ratio 0.4L 06/04/17 10:20: Urine Color Yellow, Urine Appearance Clear, Urine pH 9, Urine Specific [place] 1.015, Urine Protein 3+H, Urine Glucose (UA) Negative, Urine Ketones Negative, Urine Occult Blood 2+H, Urine Nitrite Negative, Urine Bilirubin Negative, Urine Urobilinogen Normal, Urine Leukocyte Esterase 1+H, Urine RBC 2-4H, Urine WBC 2-4 , Urine Squamous Epithelial Cells Few, Urine Bacteria Occasional, Urine Random Sodium 115H 06/05/17 06:10: White Blood Count 12.3H, Red Blood Count 3.00L, Hemoglobin 10.0L, Hematocrit 30.0L, Mean Corpuscular Volume 100H, Mean Corpuscular Hemoglobin 33.4H, Mean Corpuscular Hemoglobin Concent 33.4, Red Cell Distribution Width 23.2H, Platelet Count 361, Mean Platelet Volume 7.6, Neutrophils (%) (Auto) 81.7H, Lymphocytes (%) (Auto) 9.7L, Monocytes (%) (Auto) 5.2, Eosinophils (%) (Auto) 2.1, Basophils (%) (Auto) 1.3, Sodium Level [Pending], Potassium Level [Pending] , Chloride Level [Pending], Carbon Dioxide Level [Pending], Blood Urea Nitrogen [Pending], Creatinine [Pending], Estimat Glomerular Filtration Rate [Pending], Glucose Level [Pending], Calcium Level [Pending], Phosphorus Level [Pending], Magnesium Level [Pending], Total Bilirubin [Pending], Aspartate Amino Transf ( AST/SGOT) [Pending], Alanine Aminotransferase (ALT/SGPT) [Pending], Alkaline Phosphatase [Pending], C-Reactive Protein, Quantitative [Pending], Pro-B-Type Natriuretic Peptide [Pending], Total Protein [Pending], Albumin [Pending], Globulin [Pending] Height (Feet): 5 Height (Inches): 0.00 Weight (Pounds): 234 Objective General Appearance: WD/WN, alert Neck: supple Cardiovascular: regular rhythm Respiratory/Chest: lungs clear Abdomen: hypoactive bowel sounds, distended Edema: severe edema Neurologic: unresponsive OCHOA BISWAS Jun 05, 2017 07:20
[2017-06-05 07:27] LABS: ALANINE AMINOTRANSFERASE 22 U/L (12-78); ALBUMIN/GLOBULIN RATIO 0.4 (1.0-2.7); ANION GAP 11 mmol/L (5-15); ASPARTATE AMINO TRANSFERASE 15 U/L (15-37); CALCIUM 8.6 MG/DL (8.5-10.1); CARBON DIOXIDE 27 MMOL/L (21-32); CHLORIDE 104 MMOL/L (98-107); CREATININE 1.4 MG/DL (0.55-1.30); GLOMERULAR FILTRATION RATE 38.1 mL/min (>60); MAGNESIUM 2.1 MG/DL (1.8-2.4); PHOSPHORUS 4.3 MG/DL (2.5-4.9); POTASSIUM 3.9 MMOL/L (3.5-5.1); SODIUM 142 MMOL/L (136-145); TOTAL PROTEIN 6.1 G/DL (6.4-8.2)
[2017-06-05] MEDS ORDERED: Heparin Sod 1000 units/ml 10ml INJ ONE (07:30)
[2017-06-05 08:00] VITALS: BP 151/90
[2017-06-05] MEDS: [UNRECOGNIZED DRUG - OTHER] ORAL SCH ×2 (08:17→18:16)
[2017-06-05] MEDS: Phospha 250 Neutral tab GT SCH (08:17)
[2017-06-05] MEDS: Atenolol 12.5mg GT SCH (08:17)
[2017-06-05] MEDS: metOLazone 2.5 MG TAB ORAL SCH (08:17)
[2017-06-05] MEDS: Amiodarone 200mg tab GT SCH ×2 (08:17→18:16)
[2017-06-05] MEDS: SYSTANE ULTRA BOTH EYES SCH ×4 (08:18→20:21)
[2017-06-05] MEDS: [UNRECOGNIZED DRUG - OTHER] BOTH EYES SCH ×4 (08:18→20:22)
[2017-06-05] MEDS: Allopurinol 100mg Tab GT SCH (08:19)
[2017-06-05] MEDS: Heparin 5000 units/ml inj SUBQ SCH ×2 (08:20→20:08)
--- NOTE | 2017-06-05 09:22 | Pulmonology Progress Note ---
Assessment/Plan Assessment/Plan IMPRESSION respiratory failure possible UTI sepsis ARF/CRF hyperkalemia pericardial effusion possible renal cyst vs mass hypertension (now with normal BP off meds) chronic encephalopathy hypothyroidism diabetes possible cirrhosis atrial fib, paroxysmal hyperuricemia pain possible ascites pericardial fluid collection anasarca s/p bronchoscopy PLAN ventilator management- as is monitor acid base monitor PIP CT chest noted and discussed sliding scale and monitor sugars- sugars controlled monitor for residuals GT care GI/renal/ID/cards evaluation monitor clinically antibiotics per ID WBC noted monitor off HD if possible; BUN increasing hope to dc home soon if dialysis not needed-next 48 hrs still needs pericardial evaluation once able to transfer follow up labs for change prognosis guarded at this time medications/laboratory data/nursing notes reviewed in detail note reviewed and edited care discussed with RN and RT Subjective ROS Limited/Unobtainable: Yes Allergies: Coded Allergies: OLANZAPINE (Verified Allergy, Severe, RESP FAILURE, 11/25/13) VANCOMYCIN (Verified Allergy, Severe, 11/25/13) PIPERACILLIN (Verified Allergy, Intermediate, HIVES, 11/25/13) TAZOBACTAM (Verified Allergy, Intermediate, HIVES, 11/25/13) Subjective overnight events reviewed labs noted noted UO speciality care reviewed Objective Last 24 Hour Vital Signs Date Time Temp Pulse Resp B/P (MAP) Pulse Ox O2 Delivery O2 Flow Rate FiO2 06/05/17 08:00 79 06/05/17 08:00 28 06/05/17 08:00 98.1 75 16 151/90 100 Mechanical Ventilator 06/05/17 07:34 74 16 99 Mechanical Ventilator 06/05/17 07:24 72 16 100 Mechanical Ventilator 28 06/05/17 07:24 75 16 28 06/05/17 04:49 72 16 28 06/05/17 04:20 72 16 99 Mechanical Ventilator 06/05/17 04:00 97.3 73 20 126/76 96 Mechanical Ventilator 73 06/05/17 04:00 74 06/05/17 04:00 28 06/05/17 03:59 71 16 100 Mechanical Ventilator 28 06/05/17 03:58 71 16 28 06/05/17 00:59 78 16 28 06/05/17 00:00 82 06/05/17 00:00 28 06/05/17 00:00 98.1 81 16 129/70 97 Mechanical Ventilator 81 06/04/17 23:20 78 16 99 Mechanical Ventilator 06/04/17 23:05 79 16 100 Mechanical Ventilator 28 06/04/17 23:03 79 16 28 06/04/17 20:17 75 16 99 Mechanical Ventilator 06/04/17 20:00 71 06/04/17 20:00 98.1 75 18 132/83 100 Mechanical Ventilator 75 06/04/17 20:00 28 06/04/17 19:50 75 16 99 Mechanical Ventilator 06/04/17 19:35 73 16 100 Mechanical Ventilator 28 06/04/17 19:34 73 16 28 06/04/17 16:59 71 16 28 06/04/17 16:00 73 06/04/17 16:00 28 06/04/17 16:00 98.1 73 16 138/86 99 Mechanical Ventilator 28 06/04/17 15:15 72 16 99 Mechanical Ventilator 06/04/17 15:00 69 16 100 Mechanical Ventilator 28 06/04/17 15:00 69 16 28 06/04/17 13:20 68 16 28 06/04/17 12:00 66 06/04/17 12:00 28 06/04/17 12:00 98.2 70 16 149/87 99 Mechanical Ventilator 28 06/04/17 11:13 76 16 99 Mechanical Ventilator 06/04/17 11:03 80 16 28 06/04/17 11:03 80 16 100 Mechanical Ventilator 28 Objective WDWN female chronically ill NAD coarse breath sounds bilaterally without rhonchi or wheeze PIP reviewed [id number] without MRG NABS nontender no HSM; protuberant; GT- no CC noted edema diffusely short neck unresponsive reviewed and edited Microbiology Date/Time Source Procedure Growth Status 06/04/17 09:00 Sputum Gram Stain - Final Resulted 06/04/17 09:00 Sputum Sputum Culture Pending Resulted Laboratory Tests 06/04/17 10:20: Urine Color Yellow, Urine Appearance Clear, Urine pH 9, Urine Specific [place] 1.015, Urine Protein 3+H, Urine Glucose (UA) Negative, Urine Ketones Negative, Urine Occult Blood 2+H, Urine Nitrite Negative, Urine Bilirubin Negative, Urine Urobilinogen Normal, Urine Leukocyte Esterase 1+H, Urine RBC 2-4H, Urine WBC 2-4 , Urine Squamous Epithelial Cells Few, Urine Bacteria Occasional, Urine Random Sodium 115H 06/05/17 06:10: White Blood Count 12.3H, Red Blood Count 3.00L, Hemoglobin 10.0L, Hematocrit 30.0L, Mean Corpuscular Volume 100H, Mean Corpuscular Hemoglobin 33.4H, Mean Corpuscular Hemoglobin Concent 33.4, Red Cell Distribution Width 23.2H, Platelet Count 361, Mean Platelet Volume 7.6, Neutrophils (%) (Auto) 81.7H, Lymphocytes (%) (Auto) 9.7L, Monocytes (%) (Auto) 5.2, Eosinophils (%) (Auto) 2.1, Basophils (%) (Auto) 1.3, Sodium Level 142, Potassium Level 3.9, Chloride Level 104, Carbon Dioxide Level 27, Anion Gap 11, Blood Urea Nitrogen 63H, Creatinine 1.4H, Estimat Glomerular Filtration Rate 38.1, Glucose Level 169H, Calcium Level 8.6, Phosphorus Level 4.3, Magnesium Level 2.1, Total Bilirubin 0.6, Aspartate Amino Transf (AST/SGOT) 15, Alanine Aminotransferase (ALT/SGPT) 22, Alkaline Phosphatase 148H, C-Reactive Protein, Quantitative 2.0H, Pro-B- Type Natriuretic Peptide 2418H, Total Protein 6.1L, Albumin 1.8L, Globulin 4.3, Albumin/Globulin Ratio 0.4L Current Medications Medications (Trade) Dose Ordered Sig/Alex Route PRN Reason Start Time Stop Time Status Last Admin Dose Admin Acetaminophen (Tylenol) 650 mg Q6H PRN GT Mild Pain/Temp > 100.5 05/30/17 01:15 06/22/17 19:14 Albuterol Sulfate (Proventil) 2.5 mg Q4HRT N 06/02/17 21:00 06/07/17 20:59 06/05/17 07:24 Allopurinol (Zyloprim) 100 mg DAILY GT 06/05/17 09:00 07/05/17 08:59 06/05/17 08:19 Amiodarone HCl (Cordarone) 200 mg BID GT 06/01/17 09:00 06/26/17 20:59 06/05/17 08:17 Atenolol (Tenormin) 12.5 mg DAILY GT 05/30/17 09:00 06/24/17 10:59 06/05/17 08:17 Bisacodyl (Dulcolax) 5 mg DAILYPRN PRN RECTAL Constipation 05/29/17 20:30 06/22/17 20:29 Cefepime HCl 2 gm/ Dextrose 55 ml @ 110 mls/hr Q24H IV 05/30/17 21:00 06/06/17 20:59 06/04/17 20:13 Chlorhexidine Gluconate (Rubina-Hex 2%) 1 applic DAILY@2000 TOPIC 05/29/17 20:00 06/24/17 19:59 06/04/17 20:03 Dextrose (Dextrose 50%) STAT PRN IV Hypoglycemia 05/30/17 08:30 06/23/17 08:29 Epoetin Amadou (Procrit (for non ESRD use)) 7,500 units SUN-SUN-SUN SUBQ 06/04/17 21:00 07/04/17 20:59 06/04/17 20:04 Heparin Sodium (Porcine) (Heparin 5000 units/ml) 5,000 units EVERY 12 HOURS SUBQ 05/29/17 21:00 06/22/17 08:59 06/03/17 09:10 Insulin Aspart (NovoLOG) EVERY 6 HOURS SUBQ 05/30/17 00:00 06/23/17 11:29 06/05/17 06:07 Ipratropium [place] (Atrovent) 500 mcg Q4HRT HHN 06/02/17 21:00 06/07/17 20:59 06/05/17 07:24 Lansoprazole (Prevacid) 30 mg DAILY GT 05/31/17 09:00 06/30/17 08:59 06/05/17 08:16 Levothyroxine Sodium (Synthroid) 75 mcg ACBREAKFAST GT 05/30/17 06:30 06/21/17 06:29 06/05/17 05:59 Levothyroxine Sodium (Synthroid) 100 mcg ACBREAKFAST GT 05/30/17 06:30 06/21/17 06:29 06/05/17 06:00 Metolazone (Zaroxolyn) 2.5 mg DAILY ORAL 06/04/17 10:00 07/04/17 09:59 06/05/17 08:17 Metronidazole (Flagyl) 500 mg Q8H GT 06/01/17 20:00 06/05/17 19:59 06/05/17 03:22 Midodrine (Pro-Amatine) 10 mg TIDPRN PRN ORAL bp below 100 syst 06/04/17 13:00 07/04/17 12:59 Patient Own Medication (Patient's Own Med) 1 ea BID ORAL 05/30/17 09:00 06/28/17 17:59 06/05/17 08:17 Patient Own Medication (Patient's Own Med) 1 ea QID BOTH EYES 05/29/17 21:00 06/28/17 17:59 06/05/17 08:18 Patient Own Medication (Patient's Own Med) 1 ea QID BOTH EYES 05/29/17 21:00 06/22/17 20:59 06/05/17 08:18 Phosphorus (Phospha 250 Neutral) 250 mg BID GT 06/04/17 18:00 07/03/17 12:59 06/05/17 08:17 ANTIONETTE RODRIGUEZ Jun 05, 2017 09:22
--- NOTE | 2017-06-05 11:55 | Nephrology Progress Note ---
Assessment/Plan Problem List: (1) Acute renal failure Assessment: urine out put higher (2) Sepsis (3) UTI (urinary tract infection) (4) Tracheostomy dependence (5) Hypotension Assessment urine out put 750 past 24 h- H&H higher after transfusion Last HD 05/30 Cr up 1.4 First Dialysed 05/26 and 850 cc removed- Ascitic tap 2 liter removed 05/25 -. Acute renal failure due to ? sepsis , intravascular volume depletion, low BP... Urine out put increasing -. Hypoalbuminemia: - Increase loss: NS - Decrease production: Nutritional -. Shock, sepsis, pneumonia, pericardial effusion. -. History of hypertension, now with low blood pressure. -. Hyperkalemia. improved -. Hyponatremia. improved -. Prerenal azotemia. -. Respiratory failure with tracheostomy. -. Anasarca with ascites. due to low Albumin -. HypoThyroidism . Plan today's labs reviewed cr 1.4 stable K and phos supplement as needed No dialysis , Urine out put higher- on Zaroxyllin Will manage with diuretics PER ORDERS ? DC planning- manage OP with diuretics Diet to Nepro- Antibiotics- IV protonix Pulmonary support- Keep BP in check, midodrine when needed Monitor renal parameters- Avoid nephrotoxics per orders talked to SOREN connors managed care director and Dr De León 05/23 Long phone conversation with sister who requests transfer to [facility] 05/23 discussed with PHIL Fernandez Subjective ROS Limited/Unobtainable: Yes Objective Objective Last 24 Hour Vital Signs Date Time Temp Pulse Resp B/P (MAP) Pulse Ox O2 Delivery O2 Flow Rate FiO2 06/05/17 11:51 79 06/05/17 11:10 69 16 99 Mechanical Ventilator 06/05/17 11:00 69 16 100 Mechanical Ventilator 28 06/05/17 11:00 69 16 28 06/05/17 09:30 75 16 28 06/05/17 08:00 79 06/05/17 08:00 28 06/05/17 08:00 98.1 75 16 151/90 100 Mechanical Ventilator 06/05/17 07:34 74 16 99 Mechanical Ventilator 06/05/17 07:24 72 16 100 Mechanical Ventilator 28 06/05/17 07:24 75 16 28 06/05/17 04:49 72 16 28 06/05/17 04:20 72 16 99 Mechanical Ventilator 06/05/17 04:00 97.3 73 20 126/76 96 Mechanical Ventilator 73 06/05/17 04:00 74 06/05/17 04:00 28 06/05/17 03:59 71 16 100 Mechanical Ventilator 28 06/05/17 03:58 71 16 28 06/05/17 00:59 78 16 28 06/05/17 00:00 82 06/05/17 00:00 28 06/05/17 00:00 98.1 81 16 129/70 97 Mechanical Ventilator 81 06/04/17 23:20 78 16 99 Mechanical Ventilator 06/04/17 23:05 79 16 100 Mechanical Ventilator 28 06/04/17 23:03 79 16 28 06/04/17 20:17 75 16 99 Mechanical Ventilator 06/04/17 20:00 71 06/04/17 20:00 98.1 75 18 132/83 100 Mechanical Ventilator 75 06/04/17 20:00 28 06/04/17 19:50 75 16 99 Mechanical Ventilator 06/04/17 19:35 73 16 100 Mechanical Ventilator 28 06/04/17 19:34 73 16 28 06/04/17 16:59 71 16 28 06/04/17 16:00 73 06/04/17 16:00 28 06/04/17 16:00 98.1 73 16 138/86 99 Mechanical Ventilator 28 06/04/17 15:15 72 16 99 Mechanical Ventilator 06/04/17 15:00 69 16 100 Mechanical Ventilator 28 06/04/17 15:00 69 16 28 06/04/17 13:20 68 16 28 06/04/17 12:00 66 06/04/17 12:00 28 06/04/17 12:00 98.2 70 16 149/87 99 Mechanical Ventilator 28 Intake and Output 06/05/17 06/06/17 19:00 07:00 Intake Total 200 ml Balance 200 ml Tube Feeding 200 ml # Bowel Movements 2 Laboratory Tests 06/05/17 06:10: White Blood Count 12.3H, Red Blood Count 3.00L, Hemoglobin 10.0L, Hematocrit 30.0L, Mean Corpuscular Volume 100H, Mean Corpuscular Hemoglobin 33.4H, Mean Corpuscular Hemoglobin Concent 33.4, Red Cell Distribution Width 23.2H, Platelet Count 361, Mean Platelet Volume 7.6, Neutrophils (%) (Auto) 81.7H, Lymphocytes (%) (Auto) 9.7L, Monocytes (%) (Auto) 5.2, Eosinophils (%) (Auto) 2.1, Basophils (%) (Auto) 1.3, Sodium Level 142, Potassium Level 3.9, Chloride Level 104, Carbon Dioxide Level 27, Anion Gap 11, Blood Urea Nitrogen 63H, Creatinine 1.4H, Estimat Glomerular Filtration Rate 38.1, Glucose Level 169H, Calcium Level 8.6, Phosphorus Level 4.3, Magnesium Level 2.1, Total Bilirubin 0.6, Aspartate Amino Transf (AST/SGOT) 15, Alanine Aminotransferase (ALT/SGPT) 22, Alkaline Phosphatase 148H, C-Reactive Protein, Quantitative 2.0H, Pro-B- Type Natriuretic Peptide 2418H, Total Protein 6.1L, Albumin 1.8L, Globulin 4.3, Albumin/Globulin Ratio 0.4L Height (Feet): 5 Height (Inches): 0.00 Weight (Pounds): 234 General Appearance: no apparent distress Respiratory/Chest: decreased breath sounds Abdomen: soft Extremities: other - edematous Objective no other changes QIANA SALGADO Jun 05, 2017 11:55
[2017-06-05 12:00] VITALS: BP 155/85
--- NOTE | 2017-06-05 12:18 | Infectious Diseases Prog Note ---
"Assessment/Plan Assessment/Plan antibiotics : cefepime, flagyl A 1. klebsiella UTI s/p rx 2. leucocytosis improving 3. respiratory failure 4. DM 5. HTN 6. anoxic brain injury 7. pericardial effusion 8. serratia | pseudomonas pneumonia s/p rx P 1. d/c cefepime, flagyl 2. observe off antibiotics Subjective ROS Limited/Unobtainable: Yes Allergies: Coded Allergies: OLANZAPINE (Verified Allergy, Severe, RESP FAILURE, 11/25/13) VANCOMYCIN (Verified Allergy, Severe, 11/25/13) PIPERACILLIN (Verified Allergy, Intermediate, HIVES, 11/25/13) TAZOBACTAM (Verified Allergy, Intermediate, HIVES, 11/25/13) Objective Vital Signs Last 24 Hour Vital Signs Date Time Temp Pulse Resp B/P (MAP) Pulse Ox O2 Delivery O2 Flow Rate FiO2 06/05/17 12:00 98.6 69 16 155/85 100 Mechanical Ventilator 28 06/05/17 11:51 79 06/05/17 11:10 69 16 99 Mechanical Ventilator 06/05/17 11:00 69 16 100 Mechanical Ventilator 28 06/05/17 11:00 69 16 28 06/05/17 09:30 75 16 28 06/05/17 08:00 79 06/05/17 08:00 28 06/05/17 08:00 98.1 75 16 151/90 100 Mechanical Ventilator 06/05/17 07:34 74 16 99 Mechanical Ventilator 06/05/17 07:24 72 16 100 Mechanical Ventilator 28 06/05/17 07:24 75 16 28 06/05/17 04:49 72 16 28 06/05/17 04:20 72 16 99 Mechanical Ventilator 06/05/17 04:00 97.3 73 20 126/76 96 Mechanical Ventilator 73 06/05/17 04:00 74 06/05/17 04:00 28 06/05/17 03:59 71 16 100 Mechanical Ventilator 28 06/05/17 03:58 71 16 28 06/05/17 00:59 78 16 28 06/05/17 00:00 82 06/05/17 00:00 28 06/05/17 00:00 98.1 81 16 129/70 97 Mechanical Ventilator 81 06/04/17 23:20 78 16 99 Mechanical Ventilator 06/04/17 23:05 79 16 100 Mechanical Ventilator 28 06/04/17 23:03 79 16 28 06/04/17 20:17 75 16 99 Mechanical Ventilator 06/04/17 20:00 71 06/04/17 20:00 98.1 75 18 132/83 100 Mechanical Ventilator 75 06/04/17 20:00 28 06/04/17 19:50 75 16 99 Mechanical Ventilator 06/04/17 19:35 73 16 100 Mechanical Ventilator 28 06/04/17 19:34 73 16 28 06/04/17 16:59 71 16 28 06/04/17 16:00 73 06/04/17 16:00 28 06/04/17 16:00 98.1 73 16 138/86 99 Mechanical Ventilator 28 06/04/17 15:15 72 16 99 Mechanical Ventilator 06/04/17 15:00 69 16 100 Mechanical Ventilator 28 06/04/17 15:00 69 16 28 06/04/17 13:20 68 16 28 Height (Feet): 5 Height (Inches): 0.00 Weight (Pounds): 234 HEENT: status post trach Respiratory/Chest: lungs clear Cardiovascular: normal rate, regular rhythm, no gallop/murmur Abdomen: soft, non tender, other - GT Extremities: other - + edema, arm PICC Microbiology Date/Time Source Procedure Growth Status 06/04/17 09:00 Sputum Gram Stain - Final Resulted 06/04/17 09:00 Sputum Sputum Culture Pending Resulted Laboratory Tests Test 06/05/17 06:10 White Blood Count 12.3 K/UL (4.8-10.8) H Red Blood Count 3.00 M/UL (4.20-5.40) L Hemoglobin 10.0 G/DL (12.0-16.0) L Hematocrit 30.0 % (37.0-47.0) L Mean Corpuscular Volume 100 FL (80-99) H Mean Corpuscular Hemoglobin 33.4 PG (27.0-31.0) H Mean Corpuscular Hemoglobin Concent 33.4 G/DL (32.0-36.0) Red Cell Distribution Width 23.2 % (11.6-14.8) H Platelet Count 361 K/UL (150-450) Mean Platelet Volume 7.6 FL (6.5-10.1) Neutrophils (%) (Auto) 81.7 % (45.0-75.0) H Lymphocytes (%) (Auto) 9.7 % (20.0-45.0) L Monocytes (%) (Auto) 5.2 % (1.0-10.0) Eosinophils (%) (Auto) 2.1 % (0.0-3.0) Basophils (%) (Auto) 1.3 % (0.0-2.0) Sodium Level 142 MMOL/L (136-145) Potassium Level 3.9 MMOL/L (3.5-5.1) Chloride Level 104 MMOL/L (98-107) Carbon Dioxide Level 27 MMOL/L (21-32) Anion Gap 11 mmol/L (5-15) Blood Urea Nitrogen 63 mg/dL (7-18) H Creatinine 1.4 MG/DL (0.55-1.30) H Estimat Glomerular Filtration Rate 38.1 mL/min (>60) Glucose Level 169 MG/DL (74-106) H Calcium Level 8.6 MG/DL (8.5-10.1) Phosphorus Level 4.3 MG/DL (2.5-4.9) Magnesium Level 2.1 MG/DL (1.8-2.4) Total Bilirubin 0.6 MG/DL (0.2-1.0) Aspartate Amino Transf (AST/SGOT) 15 U/L (15-37) Alanine Aminotransferase (ALT/SGPT) 22 U/L (12-78) Alkaline Phosphatase 148 U/L (46-116) H C-Reactive Protein, Quantitative 2.0 mg/dL (0.00-0.90) H Pro-B-Type Natriuretic Peptide 2418 pg/mL (0-125) H Total Protein 6.1 G/DL (6.4-8.2) L Albumin 1.8 G/DL (3.4-5.0) L Globulin 4.3 g/dL Albumin/Globulin Ratio 0.4 (1.0-2.7) L ERIKA DICKERSON Jun 05, 2017 12:18"
--- NOTE | 2017-06-05 15:33 | Consultation ---
Consult Note Assessment/Plan 2nd opinion nephrology consult: Impression: 1) GELA due to ATN recovering 2) She seems to be in CHF/Volume overload probably due to diastolic CHF 3) Suspect cardio-renal syndrome 4) Severe hypoalbuminemia contributing to edema 5) No pericardial effusion on Echo 6) Hypernatremia with water deficit of 1.9 L 7) S/P VDRF chronically Plan: Recommend to give albumin 25 gram of 25% followed by 40 mg IV lasix x2 Free water 3000 cc/GT TID BIBI URENA Jun 05, 2017 15:33
[2017-06-05 16:00] VITALS: BP 150/77
[2017-06-05] MEDS ORDERED: NS 500ML ONE (16:19)
[2017-06-05] MEDS ORDERED: Tubing IV Secondary IV ONE (16:19)
[2017-06-05] MEDS ORDERED: Bumetanide 2.5mg/10ml Inj IVP ONE (18:30)
--- NOTE | 2017-06-05 18:47 | General Progress Note ---
Assessment/Plan Assessment/Plan Assessment - Encephalopathy - Resp failure - Trach - dysphagia - PEG - abnormal LFT--> Improving - edema / anasarca - abd distention due to ascites - no SBP on tap - UTI/PNA - leukocytosis --> Improving - azotemia - slightly higher Cr today - pericardial effusion - marked thrombocytosis - resolved - poor Px Recommendations - continue TF - f/u hepatitis serologies --> Negative - diurese as feasible - continue abx - watch Cr Subjective Allergies: Coded Allergies: OLANZAPINE (Verified Allergy, Severe, RESP FAILURE, 11/25/13) VANCOMYCIN (Verified Allergy, Severe, 11/25/13) PIPERACILLIN (Verified Allergy, Intermediate, HIVES, 11/25/13) TAZOBACTAM (Verified Allergy, Intermediate, HIVES, 11/25/13) Subjective d/w RN tolerating TF abd distended without change Objective Last 24 Hour Vital Signs Date Time Temp Pulse Resp B/P (MAP) Pulse Ox O2 Delivery O2 Flow Rate FiO2 06/05/17 17:01 76 16 28 06/05/17 16:00 28 06/05/17 16:00 98.4 79 16 150/77 100 Mechanical Ventilator 28 06/05/17 16:00 77 06/05/17 15:17 72 16 100 Mechanical Ventilator 06/05/17 14:45 70 16 28 06/05/17 14:45 70 16 100 Mechanical Ventilator 28 06/05/17 13:02 71 16 28 06/05/17 12:00 98.6 69 16 155/85 100 Mechanical Ventilator 28 06/05/17 12:00 28 06/05/17 11:51 79 06/05/17 11:10 69 16 99 Mechanical Ventilator 06/05/17 11:00 69 16 100 Mechanical Ventilator 28 06/05/17 11:00 69 16 28 06/05/17 09:30 75 16 28 06/05/17 08:00 79 06/05/17 08:00 28 06/05/17 08:00 98.1 75 16 151/90 100 Mechanical Ventilator 06/05/17 07:34 74 16 99 Mechanical Ventilator 06/05/17 07:24 72 16 100 Mechanical Ventilator 28 06/05/17 07:24 75 16 28 06/05/17 04:49 72 16 28 06/05/17 04:20 72 16 99 Mechanical Ventilator 06/05/17 04:00 97.3 73 20 126/76 96 Mechanical Ventilator 73 06/05/17 04:00 74 06/05/17 04:00 28 06/05/17 03:59 71 16 100 Mechanical Ventilator 28 06/05/17 03:58 71 16 28 06/05/17 00:59 78 16 28 06/05/17 00:00 82 06/05/17 00:00 28 06/05/17 00:00 98.1 81 16 129/70 97 Mechanical Ventilator 81 06/04/17 23:20 78 16 99 Mechanical Ventilator 06/04/17 23:05 79 16 100 Mechanical Ventilator 28 06/04/17 23:03 79 16 28 06/04/17 20:17 75 16 99 Mechanical Ventilator 06/04/17 20:00 71 06/04/17 20:00 98.1 75 18 132/83 100 Mechanical Ventilator 75 06/04/17 20:00 28 06/04/17 19:50 75 16 99 Mechanical Ventilator 06/04/17 19:35 73 16 100 Mechanical Ventilator 28 06/04/17 19:34 73 16 28 Intake and Output 06/05/17 06/06/17 19:00 07:00 Intake Total 970 ml Balance 970 ml Free Water 300 ml IV Total 50 ml Tube Feeding 500 ml Other 120 ml # Bowel Movements 3 Laboratory Tests 06/05/17 06:10: White Blood Count 12.3H, Red Blood Count 3.00L, Hemoglobin 10.0L, Hematocrit 30.0L, Mean Corpuscular Volume 100H, Mean Corpuscular Hemoglobin 33.4H, Mean Corpuscular Hemoglobin Concent 33.4, Red Cell Distribution Width 23.2H, Platelet Count 361, Mean Platelet Volume 7.6, Neutrophils (%) (Auto) 81.7H, Lymphocytes (%) (Auto) 9.7L, Monocytes (%) (Auto) 5.2, Eosinophils (%) (Auto) 2.1, Basophils (%) (Auto) 1.3, Sodium Level 142, Potassium Level 3.9, Chloride Level 104, Carbon Dioxide Level 27, Anion Gap 11, Blood Urea Nitrogen 63H, Creatinine 1.4H, Estimat Glomerular Filtration Rate 38.1, Glucose Level 169H, Calcium Level 8.6, Phosphorus Level 4.3, Magnesium Level 2.1, Total Bilirubin 0.6, Aspartate Amino Transf (AST/SGOT) 15, Alanine Aminotransferase (ALT/SGPT) 22, Alkaline Phosphatase 148H, C-Reactive Protein, Quantitative 2.0H, Pro-B- Type Natriuretic Peptide 2418H, Total Protein 6.1L, Albumin 1.8L, Globulin 4.3, Albumin/Globulin Ratio 0.4L Height (Feet): 5 Height (Inches): 0.00 Weight (Pounds): 234 Objective Obese WW NCAT supple Chest: coarse BS RRR obese, firm and distended abd, (+) GT (++) edema / anasarca OBS JILL WHITNEY Jun 05, 2017 18:47
[2017-06-05 20:00] VITALS: BP 139/75
[2017-06-05] MEDS: Dyna-Hex 2% Top Sol 2oz TOPIC SCH (20:20)
[2017-06-05] MEDS ORDERED: Cathflo Alteplase 2mg Inj INJ ONE (22:00)
[2017-06-06] VITALS: BP 134/62
[2017-06-06] MEDS ORDERED: Bumetanide 2.5mg/10ml Inj IVP ONE (02:30)
[2017-06-06] MEDS: Ipratropium 0.02% Inh Soln 2.5ml UD HHN SCH ×6 (03:28→23:07)
[2017-06-06] MEDS: Albuterol ud Inhalation HHN SCH ×6 (03:28→23:07)
[2017-06-06 04:00] VITALS: BP 138/75
[2017-06-06 05:23] LABS: BASOPHILS % (AUTO) 0.9 % (0.0-2.0); EOSINOPHILS % (AUTO) 2.4 % (0.0-3.0); LYMPHOCYTES % (AUTO) 9.8 % (20.0-45.0); MEAN CORPUSCULAR HGB CONC 31.6 G/DL (32.0-36.0); MEAN CORPUSCULAR VOLUME 101 FL (80-99); MEAN PLATELET VOLUME 7.4 FL (6.5-10.1); MONOCYTES % (AUTO) 6.1 % (1.0-10.0); NEUTROPHILS % (AUTO) 80.8 % (45.0-75.0); PLATELET COUNT 324 K/UL (150-450); RED BLOOD COUNT 2.82 M/UL (4.20-5.40); RED CELL DISTRIBUTION WIDTH 22.6 % (11.6-14.8); WHITE BLOOD COUNT 10.4 K/UL (4.8-10.8)
--- NOTE | 2017-06-06 05:45 | Progress Note ---
DATE: 06/05/2017 CARDIOLOGY PROGRESS NOTE SUBJECTIVE: The patient continues to remain edematous with poor urine output and evidence of hypernatremia and dehydration due to free water deficit. Monitored rhythm, sinus. No recurring fibrillation. OBJECTIVE: VITAL SIGNS: Blood pressure 139/75, pulse 74, respirations 20, and afebrile. NECK: Tracheostomy site with no bleeding or drainage. LUNGS: With diminished breath sounds and scattered rhonchi. CARDIAC: Regular rhythm and rate. Normal S1 and S2 with no new murmur. ABDOMEN: Obese. EXTREMITIES: With 1+ dependent edema. LABORATORY DATA: White count 12.3 and hemoglobin 10. Sodium 142, potassium 3.9, bicarbonate 27, BUN 63 and creatinine 1.4. Albumin 1.8. Pro-natriuretic peptide continues to decrease, now 2400. IMPRESSION: 1. Acute on chronic diastolic congestive heart failure, continues to improve. 2. Acute renal failure with prerenal azotemia. 3. Severe protein-calorie malnutrition. 4. Respiratory failure. 5. Pericardial fluid collection of no hemodynamic significance. 6. Paroxysmal atrial fibrillation, suppressed with amiodarone. PLAN: 1. Maintain cardiovascular regimen without change. 2. Free water replacement. 3. Protein infusion with concomitant diuresis. 4. We will follow. Ramo Toure M.D. DR: RICKIE JOB#: [id number] CC:
[2017-06-06 05:57] LABS: ALANINE AMINOTRANSFERASE 20 U/L (12-78); ALBUMIN/GLOBULIN RATIO 0.7 (1.0-2.7); ANION GAP 10 mmol/L (5-15); ASPARTATE AMINO TRANSFERASE 15 U/L (15-37); CALCIUM 8.8 MG/DL (8.5-10.1); CARBON DIOXIDE 27 MMOL/L (21-32); CHLORIDE 104 MMOL/L (98-107); CREATININE 1.3 MG/DL (0.55-1.30); CRP QUANT 1.5 mg/dL (0.00-0.90); GLOMERULAR FILTRATION RATE 41.5 mL/min (>60); PHOSPHORUS 4.6 MG/DL (2.5-4.9); POTASSIUM 4.6 MMOL/L (3.5-5.1); SODIUM 141 MMOL/L (136-145); TOTAL PROTEIN 6.5 G/DL (6.4-8.2); URIC ACID 4.8 MG/DL (2.6-7.2)
[2017-06-06] MEDS: NovoLOG Insulin Flexpen SUBQ SCH ×3 (06:03→17:22)
--- NOTE | 2017-06-06 07:49 | General Progress Note ---
Assessment/Plan Problem List: (1) Sepsis ICD Codes: A41.9 - Sepsis, unspecified organism SNOMED: 18241921 (2) Pneumonia ICD Codes: J18.9 - Pneumonia, unspecified organism SNOMED: 629696650 (3) Acute renal failure ICD Codes: N17.9 - Acute kidney failure, unspecified SNOMED: 12852925 (4) Pericardial effusion ICD Codes: I31.3 - Pericardial effusion (noninflammatory) SNOMED: 040505560 (5) Tracheostomy malfunction ICD Codes: J95.03 - Malfunction of tracheostomy stoma SNOMED: 20563015 (6) UTI (urinary tract infection) ICD Codes: N39.0 - Urinary tract infection, site not specified SNOMED: 09403285, 546692146 Qualifiers: Qualified Codes: N30.01 - Acute cystitis with hematuria Status: stable, progressing Assessment/Plan diuresis monitor off abx monitor wbc- improving vent support resp rx monitor renal fxn poor prognosis. d/w caregiver. transfuse as needed dnr prognosis remains poor percardial effusion better- no need to transfer per cards Subjective ROS Limited/Unobtainable: Yes Constitutional: Reports: malaise, weakness HEENT: Reports: no symptoms Cardiovascular: Reports: edema Respiratory: Reports: shortness of breath Gastrointestinal/Abdominal: Reports: difficulty swallowing Genitourinary: Reports: no symptoms Neurologic/Psychiatric: Reports: pre-existing deficit Endocrine: Reports: no symptoms Hematologic/Lymphatic: Reports: anemia Allergies: Coded Allergies: OLANZAPINE (Verified Allergy, Severe, RESP FAILURE, 11/25/13) VANCOMYCIN (Verified Allergy, Severe, 11/25/13) PIPERACILLIN (Verified Allergy, Intermediate, HIVES, 11/25/13) TAZOBACTAM (Verified Allergy, Intermediate, HIVES, 11/25/13) All Systems: reviewed and negative except above Subjective no events. d/w television installer at the bedside. urine output much improved according to television installer. still with significant edema. Objective Last 24 Hour Vital Signs Date Time Temp Pulse Resp B/P (MAP) Pulse Ox O2 Delivery O2 Flow Rate FiO2 06/06/17 07:12 69 16 100 Mechanical Ventilator 06/06/17 07:03 68 16 28 06/06/17 07:02 68 16 99 Mechanical Ventilator 28 06/06/17 05:25 69 16 28 06/06/17 04:00 98.1 70 16 138/75 99 Mechanical Ventilator 28 06/06/17 04:00 28 06/06/17 04:00 70 06/06/17 03:36 72 16 100 Mechanical Ventilator 06/06/17 03:29 71 16 100 Mechanical Ventilator 28 06/06/17 03:28 71 16 28 06/06/17 01:52 68 16 28 06/06/17 00:00 72 06/06/17 00:00 28 06/06/17 00:00 98.7 72 16 134/62 99 Mechanical Ventilator 28 06/05/17 23:32 68 16 100 Mechanical Ventilator 06/05/17 23:20 68 16 28 06/05/17 23:16 69 16 100 Mechanical Ventilator 28 06/05/17 21:30 75 16 100 Mechanical Ventilator 06/05/17 21:28 72 16 28 06/05/17 20:05 75 16 100 Mechanical Ventilator 28 06/05/17 20:03 75 16 28 06/05/17 20:00 98.6 74 16 139/75 98 Mechanical Ventilator 28 06/05/17 20:00 74 06/05/17 20:00 28 06/05/17 17:01 76 16 28 06/05/17 16:00 28 06/05/17 16:00 98.4 79 16 150/77 100 Mechanical Ventilator 28 06/05/17 16:00 77 06/05/17 15:17 72 16 100 Mechanical Ventilator 06/05/17 14:45 70 16 28 06/05/17 14:45 70 16 100 Mechanical Ventilator 28 06/05/17 13:02 71 16 28 06/05/17 12:00 98.6 69 16 155/85 100 Mechanical Ventilator 28 06/05/17 12:00 28 06/05/17 11:51 79 06/05/17 11:10 69 16 99 Mechanical Ventilator 06/05/17 11:00 69 16 100 Mechanical Ventilator 28 06/05/17 11:00 69 16 28 06/05/17 09:30 75 16 28 06/05/17 08:00 79 06/05/17 08:00 28 06/05/17 08:00 98.1 75 16 151/90 100 Mechanical Ventilator Laboratory Tests 06/06/17 04:00: White Blood Count 10.4, Red Blood Count 2.82L, Hemoglobin 9.0L, Hematocrit 28.6L , Mean Corpuscular Volume 101H, Mean Corpuscular Hemoglobin 32.0H, Mean Corpuscular Hemoglobin Concent 31.6L, Red Cell Distribution Width 22.6H, Platelet Count 324, Mean Platelet Volume 7.4, Neutrophils (%) (Auto) 80.8H, Lymphocytes (%) (Auto) 9.8L, Monocytes (%) (Auto) 6.1, Eosinophils (%) (Auto) 2.4, Basophils (%) (Auto) 0.9, Sodium Level 141, Potassium Level 4.6, Chloride Level 104, Carbon Dioxide Level 27, Anion Gap 10, Blood Urea Nitrogen 63H, Creatinine 1.3, Estimat Glomerular Filtration Rate 41.5, Glucose Level 133H, Uric Acid 4.8, Calcium Level 8.8, Phosphorus Level 4.6, Magnesium Level 2.0, Total Bilirubin 0.6, Aspartate Amino Transf (AST/SGOT) 15, Alanine Aminotransferase (ALT/SGPT) 20, Alkaline Phosphatase 129H, C-Reactive Protein, Quantitative 1.5H, Pro-B-Type Natriuretic Peptide 2497H, Total Protein 6.5, Albumin 2.7L, Globulin 3.8, Albumin/Globulin Ratio 0.7L Height (Feet): 5 Height (Inches): 0.00 Weight (Pounds): 231 Objective General Appearance: WD/WN, alert Neck: supple Cardiovascular: regular rhythm Respiratory/Chest: lungs clear Abdomen: hypoactive bowel sounds, distended Edema: severe edema Neurologic: unresponsive OCHOA BISWAS Jun 06, 2017 07:48
[2017-06-06 08:00] VITALS: BP 141/81
[2017-06-06] MEDS: Amiodarone 200mg tab GT SCH ×2 (08:25→17:16)
[2017-06-06] MEDS: Atenolol 12.5mg GT SCH (08:26)
[2017-06-06] MEDS: Allopurinol 100mg Tab GT SCH (08:26)
[2017-06-06] MEDS: Heparin 5000 units/ml inj SUBQ SCH ×3 (08:28→20:29)
[2017-06-06] MEDS: [UNRECOGNIZED DRUG - OTHER] ORAL SCH ×2 (08:56→17:17)
[2017-06-06] MEDS: [UNRECOGNIZED DRUG - OTHER] BOTH EYES SCH ×4 (08:56→20:25)
[2017-06-06] MEDS: SYSTANE ULTRA BOTH EYES SCH ×4 (08:57→20:25)
[2017-06-06] MEDS ORDERED: Cathflo Alteplase 2mg Inj INJ ONE (09:00)
--- NOTE | 2017-06-06 10:45 | Pulmonology Progress Note ---
Assessment/Plan Assessment/Plan IMPRESSION respiratory failure possible UTI sepsis ARF/CRF hyperkalemia pericardial effusion possible renal cyst vs mass hypertension (now with normal BP off meds) chronic encephalopathy hypothyroidism diabetes possible cirrhosis atrial fib, paroxysmal hyperuricemia pain possible ascites pericardial fluid collection anasarca s/p bronchoscopy PLAN ventilator management- as is monitor acid base monitor PIP sliding scale and monitor sugars- sugars controlled monitor for residuals GT care GI/renal/ID/cards evaluation monitor clinically off antibiotics WBC noted monitor off HD and hope to dc home still needs pericardial evaluation once able to transfer follow up labs for change prognosis guarded at this time sister updated medications/laboratory data/nursing notes reviewed in detail note reviewed and edited care discussed with RN and RT Subjective ROS Limited/Unobtainable: Yes Allergies: Coded Allergies: OLANZAPINE (Verified Allergy, Severe, RESP FAILURE, 11/25/13) VANCOMYCIN (Verified Allergy, Severe, 11/25/13) PIPERACILLIN (Verified Allergy, Intermediate, HIVES, 11/25/13) TAZOBACTAM (Verified Allergy, Intermediate, HIVES, 11/25/13) Subjective overnight events reviewed labs noted noted UO is adequate family wants Dr. Thakur for nephro speciality care reviewed Objective Last 24 Hour Vital Signs Date Time Temp Pulse Resp B/P (MAP) Pulse Ox O2 Delivery O2 Flow Rate FiO2 06/06/17 09:00 72 16 28 06/06/17 08:59 75 06/06/17 08:01 28 06/06/17 08:00 97.7 70 16 141/81 99 Mechanical Ventilator 06/06/17 07:12 69 16 100 Mechanical Ventilator 06/06/17 07:03 68 16 28 06/06/17 07:02 68 16 99 Mechanical Ventilator 06/06/17 05:25 69 16 28 06/06/17 04:00 98.1 70 16 138/75 99 Mechanical Ventilator 06/06/17 04:00 28 06/06/17 04:00 70 06/06/17 03:36 72 16 100 Mechanical Ventilator 06/06/17 03:29 71 16 100 Mechanical Ventilator 28 06/06/17 03:28 71 16 28 06/06/17 01:52 68 16 28 06/06/17 00:00 72 06/06/17 00:00 28 06/06/17 00:00 98.7 72 16 134/62 99 Mechanical Ventilator 28 06/05/17 23:32 68 16 100 Mechanical Ventilator 06/05/17 23:20 68 16 28 06/05/17 23:16 69 16 100 Mechanical Ventilator 28 06/05/17 21:30 75 16 100 Mechanical Ventilator 06/05/17 21:28 72 16 28 06/05/17 20:05 75 16 100 Mechanical Ventilator 28 06/05/17 20:03 75 16 28 06/05/17 20:00 98.6 74 16 139/75 98 Mechanical Ventilator 28 06/05/17 20:00 74 06/05/17 20:00 28 06/05/17 17:01 76 16 28 06/05/17 16:00 28 06/05/17 16:00 98.4 79 16 150/77 100 Mechanical Ventilator 28 06/05/17 16:00 77 06/05/17 15:17 72 16 100 Mechanical Ventilator 06/05/17 14:45 70 16 28 06/05/17 14:45 70 16 100 Mechanical Ventilator 28 06/05/17 13:02 71 16 28 06/05/17 12:00 98.6 69 16 155/85 100 Mechanical Ventilator 28 06/05/17 12:00 28 06/05/17 11:51 79 06/05/17 11:10 69 16 99 Mechanical Ventilator 06/05/17 11:00 69 16 100 Mechanical Ventilator 28 06/05/17 11:00 69 16 28 Objective WDWN female chronically ill NAD coarse breath sounds bilaterally without rhonchi or wheeze PIP reviewed [id number] without MRG NABS nontender no HSM; protuberant; GT- no CC noted edema diffusely short neck unresponsive reviewed and edited Microbiology Date/Time Source Procedure Growth Status 06/04/17 09:00 Sputum Gram Stain - Final Resulted 06/04/17 09:00 Sputum Culture - Preliminary Gram Negative Bacillus 1 Gram Negative Bacillus 2 Resulted Laboratory Tests 06/06/17 04:00: White Blood Count 10.4, Red Blood Count 2.82L, Hemoglobin 9.0L, Hematocrit 28.6L , Mean Corpuscular Volume 101H, Mean Corpuscular Hemoglobin 32.0H, Mean Corpuscular Hemoglobin Concent 31.6L, Red Cell Distribution Width 22.6H, Platelet Count 324, Mean Platelet Volume 7.4, Neutrophils (%) (Auto) 80.8H, Lymphocytes (%) (Auto) 9.8L, Monocytes (%) (Auto) 6.1, Eosinophils (%) (Auto) 2.4, Basophils (%) (Auto) 0.9, Sodium Level 141, Potassium Level 4.6, Chloride Level 104, Carbon Dioxide Level 27, Anion Gap 10, Blood Urea Nitrogen 63H, Creatinine 1.3, Estimat Glomerular Filtration Rate 41.5, Glucose Level 133H, Uric Acid 4.8, Calcium Level 8.8, Phosphorus Level 4.6, Magnesium Level 2.0, Total Bilirubin 0.6, Aspartate Amino Transf (AST/SGOT) 15, Alanine Aminotransferase (ALT/SGPT) 20, Alkaline Phosphatase 129H, C-Reactive Protein, Quantitative 1.5H, Pro-B-Type Natriuretic Peptide 2497H, Total Protein 6.5, Albumin 2.7L, Globulin 3.8, Albumin/Globulin Ratio 0.7L Current Medications Medications (Trade) Dose Ordered Sig/Alex Route PRN Reason Start Time Stop Time Status Last Admin Dose Admin Acetaminophen (Tylenol) 650 mg Q6H PRN GT Mild Pain/Temp > 100.5 05/30/17 01:15 06/22/17 19:14 Albuterol Sulfate (Proventil) 2.5 mg Q4HRT HHN 06/02/17 21:00 06/07/17 20:59 06/06/17 07:02 Allopurinol (Zyloprim) 100 mg DAILY GT 06/05/17 09:00 07/05/17 08:59 06/06/17 08:26 Amiodarone HCl (Cordarone) 200 mg BID GT 06/01/17 09:00 06/26/17 20:59 06/06/17 08:25 Atenolol (Tenormin) 12.5 mg DAILY GT 05/30/17 09:00 06/24/17 10:59 06/06/17 08:26 Bisacodyl (Dulcolax) 5 mg DAILYPRN PRN RECTAL Constipation 05/29/17 20:30 06/22/17 20:29 Chlorhexidine Gluconate (Rubina-Hex 2%) 1 applic DAILY@2000 TOPIC 05/29/17 20:00 06/24/17 19:59 06/05/17 20:20 Dextrose (Dextrose 50%) STAT PRN IV Hypoglycemia 05/30/17 08:30 06/23/17 08:29 Epoetin Amadou (Procrit (for non ESRD use)) 7,500 units SUN-SUN-SUN SUBQ 06/04/17 21:00 07/04/17 20:59 06/04/17 20:04 Heparin Sodium (Porcine) (Heparin 5000 units/ml) 5,000 units EVERY 12 HOURS SUBQ 05/29/17 21:00 06/22/17 08:59 06/03/17 09:10 Insulin Aspart (NovoLOG) EVERY 6 HOURS SUBQ 05/30/17 00:00 06/23/17 11:29 06/06/17 06:03 Ipratropium [place] (Atrovent) 500 mcg Q4HRT HHN 06/02/17 21:00 06/07/17 20:59 06/06/17 07:02 Lansoprazole (Prevacid) 30 mg DAILY GT 05/31/17 09:00 06/30/17 08:59 06/06/17 08:26 Levothyroxine Sodium (Synthroid) 75 mcg ACBREAKFAST GT 05/30/17 06:30 06/21/17 06:29 06/06/17 06:01 Levothyroxine Sodium (Synthroid) 100 mcg ACBREAKFAST GT 05/30/17 06:30 06/21/17 06:29 06/06/17 06:01 Midodrine (Pro-Amatine) 10 mg TIDPRN PRN ORAL bp below 100 syst 06/04/17 13:00 07/04/17 12:59 Patient Own Medication (Patient's Own Med) 1 ea BID ORAL 05/30/17 09:00 06/28/17 17:59 06/06/17 08:56 Patient Own Medication (Patient's Own Med) 1 ea QID BOTH EYES 05/29/17 21:00 06/28/17 17:59 06/06/17 08:57 Patient Own Medication (Patient's Own Med) 1 ea QID BOTH EYES 05/29/17 21:00 06/22/17 20:59 06/06/17 08:56 ANTIONETTE RODRIGUEZ Jun 06, 2017 10:45
[2017-06-06 12:00] VITALS: BP 154/87
--- NOTE | 2017-06-06 12:06 | Infectious Diseases Prog Note ---
"Assessment/Plan Assessment/Plan antibiotics : none A 1. klebsiella UTI s/p rx 2. leucocytosis improving 3. respiratory failure 4. DM 5. HTN 6. anoxic brain injury 7. pericardial effusion 8. serratia | pseudomonas pneumonia s/p rx P 1. observe off antibiotics Subjective ROS Limited/Unobtainable: Yes Allergies: Coded Allergies: OLANZAPINE (Verified Allergy, Severe, RESP FAILURE, 11/25/13) VANCOMYCIN (Verified Allergy, Severe, 11/25/13) PIPERACILLIN (Verified Allergy, Intermediate, HIVES, 11/25/13) TAZOBACTAM (Verified Allergy, Intermediate, HIVES, 11/25/13) Objective Vital Signs Last 24 Hour Vital Signs Date Time Temp Pulse Resp B/P (MAP) Pulse Ox O2 Delivery O2 Flow Rate FiO2 06/06/17 12:00 28 06/06/17 10:54 71 16 Mechanical Ventilator 06/06/17 10:44 59 16 Mechanical Ventilator 06/06/17 09:00 72 16 28 06/06/17 08:59 75 06/06/17 08:01 28 06/06/17 08:00 97.7 70 16 141/81 99 Mechanical Ventilator 06/06/17 07:12 69 16 100 Mechanical Ventilator 06/06/17 07:03 68 16 28 06/06/17 07:02 68 16 99 Mechanical Ventilator 06/06/17 05:25 69 16 28 06/06/17 04:00 98.1 70 16 138/75 99 Mechanical Ventilator 06/06/17 04:00 28 06/06/17 04:00 70 06/06/17 03:36 72 16 100 Mechanical Ventilator 06/06/17 03:29 71 16 100 Mechanical Ventilator 06/06/17 03:28 71 16 28 06/06/17 01:52 68 16 28 06/06/17 00:00 72 06/06/17 00:00 28 06/06/17 00:00 98.7 72 16 134/62 99 Mechanical Ventilator 06/05/17 23:32 68 16 100 Mechanical Ventilator 06/05/17 23:20 68 16 28 06/05/17 23:16 69 16 100 Mechanical Ventilator 28 06/05/17 21:30 75 16 100 Mechanical Ventilator 06/05/17 21:28 72 16 28 06/05/17 20:05 75 16 100 Mechanical Ventilator 28 06/05/17 20:03 75 16 28 06/05/17 20:00 98.6 74 16 139/75 98 Mechanical Ventilator 28 06/05/17 20:00 74 06/05/17 20:00 28 06/05/17 17:01 76 16 28 06/05/17 16:00 28 06/05/17 16:00 98.4 79 16 150/77 100 Mechanical Ventilator 28 06/05/17 16:00 77 06/05/17 15:17 72 16 100 Mechanical Ventilator 06/05/17 14:45 70 16 28 06/05/17 14:45 70 16 100 Mechanical Ventilator 28 06/05/17 13:02 71 16 28 Height (Feet): 5 Height (Inches): 0.00 Weight (Pounds): 231 HEENT: status post trach Respiratory/Chest: lungs clear Cardiovascular: normal rate, regular rhythm, no gallop/murmur Abdomen: soft, non tender, other - GT Extremities: other - + edema, right arm PICC Microbiology Date/Time Source Procedure Growth Status 06/04/17 09:00 Sputum Gram Stain - Final Resulted 06/04/17 09:00 Sputum Culture - Preliminary Gram Negative Bacillus 1 Gram Negative Bacillus 2 Resulted Laboratory Tests Test 06/06/17 04:00 White Blood Count 10.4 K/UL (4.8-10.8) Red Blood Count 2.82 M/UL (4.20-5.40) L Hemoglobin 9.0 G/DL (12.0-16.0) L Hematocrit 28.6 % (37.0-47.0) L Mean Corpuscular Volume 101 FL (80-99) H Mean Corpuscular Hemoglobin 32.0 PG (27.0-31.0) H Mean Corpuscular Hemoglobin Concent 31.6 G/DL (32.0-36.0) L Red Cell Distribution Width 22.6 % (11.6-14.8) H Platelet Count 324 K/UL (150-450) Mean Platelet Volume 7.4 FL (6.5-10.1) Neutrophils (%) (Auto) 80.8 % (45.0-75.0) H Lymphocytes (%) (Auto) 9.8 % (20.0-45.0) L Monocytes (%) (Auto) 6.1 % (1.0-10.0) Eosinophils (%) (Auto) 2.4 % (0.0-3.0) Basophils (%) (Auto) 0.9 % (0.0-2.0) Sodium Level 141 MMOL/L (136-145) Potassium Level 4.6 MMOL/L (3.5-5.1) Chloride Level 104 MMOL/L (98-107) Carbon Dioxide Level 27 MMOL/L (21-32) Anion Gap 10 mmol/L (5-15) Blood Urea Nitrogen 63 mg/dL (7-18) H Creatinine 1.3 MG/DL (0.55-1.30) Estimat Glomerular Filtration Rate 41.5 mL/min (>60) Glucose Level 133 MG/DL (74-106) H Uric Acid 4.8 MG/DL (2.6-7.2) Calcium Level 8.8 MG/DL (8.5-10.1) Phosphorus Level 4.6 MG/DL (2.5-4.9) Magnesium Level 2.0 MG/DL (1.8-2.4) Total Bilirubin 0.6 MG/DL (0.2-1.0) Aspartate Amino Transf (AST/SGOT) 15 U/L (15-37) Alanine Aminotransferase (ALT/SGPT) 20 U/L (12-78) Alkaline Phosphatase 129 U/L (46-116) H C-Reactive Protein, Quantitative 1.5 mg/dL (0.00-0.90) H Pro-B-Type Natriuretic Peptide 2497 pg/mL (0-125) H Total Protein 6.5 G/DL (6.4-8.2) Albumin 2.7 G/DL (3.4-5.0) L Globulin 3.8 g/dL Albumin/Globulin Ratio 0.7 (1.0-2.7) L ERIKA DICKERSON Jun 06, 2017 12:06"
--- NOTE | 2017-06-06 14:43 | Nephrology Progress Note ---
Assessment/Plan Assessment 1) Chronic VDRF 2) GELA 3) S/P septic shock 4) Fluid overload/CHF probably due to chronic diastolic CHF Plan: Will Give Bumex 2 mg IV Q8 x2 KCL 40 MED per GT x1 Subjective Subjective She is still on the vent, had good diuresis, creat is down to 1.3, after talkinh to sister it seems that her baseline creat was in the 0.2 -0.3 , no distress Objective Objective Last 24 Hour Vital Signs Date Time Temp Pulse Resp B/P (MAP) Pulse Ox O2 Delivery O2 Flow Rate FiO2 06/06/17 12:45 71 16 28 06/06/17 12:00 28 06/06/17 12:00 97.7 67 16 154/87 100 Mechanical Ventilator 28 06/06/17 12:00 63 06/06/17 10:54 71 16 Mechanical Ventilator 06/06/17 10:44 59 16 Mechanical Ventilator 28 06/06/17 10:40 72 16 28 06/06/17 09:00 72 16 28 06/06/17 08:59 75 06/06/17 08:01 28 06/06/17 08:00 97.7 70 16 141/81 99 Mechanical Ventilator 28 06/06/17 07:12 69 16 100 Mechanical Ventilator 06/06/17 07:03 68 16 28 06/06/17 07:02 68 16 99 Mechanical Ventilator 28 06/06/17 05:25 69 16 28 06/06/17 04:00 98.1 70 16 138/75 99 Mechanical Ventilator 28 06/06/17 04:00 28 06/06/17 04:00 70 06/06/17 03:36 72 16 100 Mechanical Ventilator 06/06/17 03:29 71 16 100 Mechanical Ventilator 28 06/06/17 03:28 71 16 28 06/06/17 01:52 68 16 28 06/06/17 00:00 72 06/06/17 00:00 28 06/06/17 00:00 98.7 72 16 134/62 99 Mechanical Ventilator 28 06/05/17 23:32 68 16 100 Mechanical Ventilator 06/05/17 23:20 68 16 28 06/05/17 23:16 69 16 100 Mechanical Ventilator 28 06/05/17 21:30 75 16 100 Mechanical Ventilator 06/05/17 21:28 72 16 28 12/12/17 20:05 75 16 100 Mechanical Ventilator 28 06/05/17 20:03 75 16 28 06/05/17 20:00 98.6 74 16 139/75 98 Mechanical Ventilator 28 06/05/17 20:00 74 06/05/17 20:00 28 06/05/17 17:01 76 16 28 06/05/17 16:00 28 06/05/17 16:00 98.4 79 16 150/77 100 Mechanical Ventilator 28 06/05/17 16:00 77 06/05/17 15:17 72 16 100 Mechanical Ventilator 06/05/17 14:45 70 16 28 06/05/17 14:45 70 16 100 Mechanical Ventilator 28 Laboratory Tests 06/06/17 04:00: White Blood Count 10.4, Red Blood Count 2.82L, Hemoglobin 9.0L, Hematocrit 28.6L , Mean Corpuscular Volume 101H, Mean Corpuscular Hemoglobin 32.0H, Mean Corpuscular Hemoglobin Concent 31.6L, Red Cell Distribution Width 22.6H, Platelet Count 324, Mean Platelet Volume 7.4, Neutrophils (%) (Auto) 80.8H, Lymphocytes (%) (Auto) 9.8L, Monocytes (%) (Auto) 6.1, Eosinophils (%) (Auto) 2.4, Basophils (%) (Auto) 0.9, Sodium Level 141, Potassium Level 4.6, Chloride Level 104, Carbon Dioxide Level 27, Anion Gap 10, Blood Urea Nitrogen 63H, Creatinine 1.3, Estimat Glomerular Filtration Rate 41.5, Glucose Level 133H, Uric Acid 4.8, Calcium Level 8.8, Phosphorus Level 4.6, Magnesium Level 2.0, Total Bilirubin 0.6, Aspartate Amino Transf (AST/SGOT) 15, Alanine Aminotransferase (ALT/SGPT) 20, Alkaline Phosphatase 129H, C-Reactive Protein, Quantitative 1.5H, Pro-B-Type Natriuretic Peptide 2497H, Total Protein 6.5, Albumin 2.7L, Globulin 3.8, Albumin/Globulin Ratio 0.7L Height (Feet): 5 Height (Inches): 0.00 Weight (Pounds): 231 General Appearance: WD/WN, no apparent distress, other - on the vent via trach EENT: PERRL/EOMI Neck: non-tender, normal alignment Cardiovascular: normal rate, regular rhythm Respiratory/Chest: chest wall non-tender, decreased breath sounds Abdomen: normal bowel sounds, non tender, soft Extremities: normal range of motion Neurologic: no motor/sensory deficits BIBI URENA Jun 06, 2017 14:43
[2017-06-06] MEDS: Bumetanide 2.5mg/10ml Inj IVP SCH (15:13)
[2017-06-06 20:00] VITALS: BP 149/79
[2017-06-06] MEDS: Dyna-Hex 2% Top Sol 2oz TOPIC SCH (20:25)
--- NOTE | 2017-06-06 21:28 | General Progress Note ---
Assessment/Plan Assessment/Plan Assessment - Encephalopathy - Resp failure - Trach - dysphagia - PEG - abnormal LFT--> Improving - edema / anasarca - abd distention due to ascites - no SBP on tap - UTI/PNA - leukocytosis --> Improving - azotemia - slightly higher Cr today - pericardial effusion - marked thrombocytosis - resolved - poor Px Recommendations - continue TF - f/u hepatitis serologies --> Negative - diurese as feasible - continue abx - watch Cr Subjective Allergies: Coded Allergies: OLANZAPINE (Verified Allergy, Severe, RESP FAILURE, 11/25/13) VANCOMYCIN (Verified Allergy, Severe, 11/25/13) PIPERACILLIN (Verified Allergy, Intermediate, HIVES, 11/25/13) TAZOBACTAM (Verified Allergy, Intermediate, HIVES, 11/25/13) Subjective d/w RN tolerating TF abd distended without change Objective Last 24 Hour Vital Signs Date Time Temp Pulse Resp B/P (MAP) Pulse Ox O2 Delivery O2 Flow Rate FiO2 06/06/17 20:17 73 16 100 Mechanical Ventilator 06/06/17 20:00 71 16 28 06/06/17 20:00 28 06/06/17 20:00 98.1 72 16 149/79 96 Mechanical Ventilator 06/06/17 19:54 73 16 99 Mechanical Ventilator 06/06/17 17:00 78 16 28 06/06/17 16:00 75 06/06/17 16:00 28 06/06/17 15:23 62 16 100 Mechanical Ventilator 06/06/17 15:00 66 16 28 06/06/17 14:57 66 16 99 Mechanical Ventilator 06/06/17 12:45 71 16 28 06/06/17 12:00 28 06/06/17 12:00 97.7 67 16 154/87 100 Mechanical Ventilator 06/06/17 12:00 63 06/06/17 10:54 71 16 Mechanical Ventilator 06/06/17 10:44 59 16 Mechanical Ventilator 06/06/17 10:40 72 16 28 06/06/17 09:00 72 16 28 06/06/17 08:59 75 06/06/17 08:01 28 06/06/17 08:00 97.7 70 16 141/81 99 Mechanical Ventilator 06/06/17 07:12 69 16 100 Mechanical Ventilator 06/06/17 07:03 68 16 28 06/06/17 07:02 68 16 99 Mechanical Ventilator 28 06/06/17 05:25 69 16 28 06/06/17 04:00 98.1 70 16 138/75 99 Mechanical Ventilator 28 06/06/17 04:00 28 06/06/17 04:00 70 06/06/17 03:36 72 16 100 Mechanical Ventilator 06/06/17 03:29 71 16 100 Mechanical Ventilator 28 06/06/17 03:28 71 16 28 06/06/17 01:52 68 16 28 06/06/17 00:00 72 06/06/17 00:00 28 06/06/17 00:00 98.7 72 16 134/62 99 Mechanical Ventilator 28 06/05/17 23:32 68 16 100 Mechanical Ventilator 06/05/17 23:20 68 16 28 06/05/17 23:16 69 16 100 Mechanical Ventilator 28 06/05/17 21:30 75 16 100 Mechanical Ventilator Intake and Output 06/06/17 06/07/17 18:59 06:59 Intake Total 650 ml Output Total 900 ml Balance -250 ml Free Water 300 ml Tube Feeding 350 ml Output Urine Total 900 ml # Bowel Movements 1 Laboratory Tests 06/06/17 04:00: White Blood Count 10.4, Red Blood Count 2.82L, Hemoglobin 9.0L, Hematocrit 28.6L , Mean Corpuscular Volume 101H, Mean Corpuscular Hemoglobin 32.0H, Mean Corpuscular Hemoglobin Concent 31.6L, Red Cell Distribution Width 22.6H, Platelet Count 324, Mean Platelet Volume 7.4, Neutrophils (%) (Auto) 80.8H, Lymphocytes (%) (Auto) 9.8L, Monocytes (%) (Auto) 6.1, Eosinophils (%) (Auto) 2.4, Basophils (%) (Auto) 0.9, Sodium Level 141, Potassium Level 4.6, Chloride Level 104, Carbon Dioxide Level 27, Anion Gap 10, Blood Urea Nitrogen 63H, Creatinine 1.3, Estimat Glomerular Filtration Rate 41.5, Glucose Level 133H, Uric Acid 4.8, Calcium Level 8.8, Phosphorus Level 4.6, Magnesium Level 2.0, Total Bilirubin 0.6, Aspartate Amino Transf (AST/SGOT) 15, Alanine Aminotransferase (ALT/SGPT) 20, Alkaline Phosphatase 129H, C-Reactive Protein, Quantitative 1.5H, Pro-B-Type Natriuretic Peptide 2497H, Total Protein 6.5, Albumin 2.7L, Globulin 3.8, Albumin/Globulin Ratio 0.7L Height (Feet): 5 Height (Inches): 0.00 Weight (Pounds): 231 Objective Obese WW NCAT supple Chest: coarse BS RRR obese, firm and distended abd, (+) GT (++) edema / anasarca OBS JILL WHITNEY Jun 06, 2017 21:28
[2017-06-06] MEDS: Epogen (for non ESRD use) SUBQ SCH (21:36)
--- NOTE | 2017-06-06 22:34 | General Progress Note ---
Assessment/Plan Assessment/Plan Assessment - Encephalopathy - Resp failure - Trach - dysphagia - PEG (changed) - abnormal LFT--> Improving - edema / anasarca - abd distention due to ascites - no SBP on tap - UTI/PNA - leukocytosis --> Improving - azotemia - slightly higher Cr today - pericardial effusion - marked thrombocytosis - resolved - poor Px Recommendations - continue TF - f/u hepatitis serologies --> Negative - diurese as feasible - continue abx - watch Cr Subjective Allergies: Coded Allergies: OLANZAPINE (Verified Allergy, Severe, RESP FAILURE, 11/25/13) VANCOMYCIN (Verified Allergy, Severe, 11/25/13) PIPERACILLIN (Verified Allergy, Intermediate, HIVES, 11/25/13) TAZOBACTAM (Verified Allergy, Intermediate, HIVES, 11/25/13) Subjective d/w RN tolerating TF abd distended without change Objective Last 24 Hour Vital Signs Date Time Temp Pulse Resp B/P (MAP) Pulse Ox O2 Delivery O2 Flow Rate FiO2 06/06/17 21:29 81 16 28 06/06/17 20:17 73 16 100 Mechanical Ventilator 06/06/17 20:10 74 16 99 Mechanical Ventilator 06/06/17 20:00 71 16 28 06/06/17 20:00 28 06/06/17 20:00 98.1 72 16 149/79 96 Mechanical Ventilator 06/06/17 19:54 73 16 99 Mechanical Ventilator 06/06/17 17:00 78 16 28 06/06/17 16:00 75 06/06/17 16:00 28 06/06/17 15:23 62 16 100 Mechanical Ventilator 06/06/17 15:00 66 16 28 06/06/17 14:57 66 16 99 Mechanical Ventilator 06/06/17 12:45 71 16 28 06/06/17 12:00 28 06/06/17 12:00 97.7 67 16 154/87 100 Mechanical Ventilator 06/06/17 12:00 63 06/06/17 10:54 71 16 Mechanical Ventilator 06/06/17 10:44 59 16 Mechanical Ventilator 06/06/17 10:40 72 16 28 06/06/17 09:00 72 16 28 06/06/17 08:59 75 06/06/17 08:01 28 06/06/17 08:00 97.7 70 16 141/81 99 Mechanical Ventilator 28 06/06/17 07:12 69 16 100 Mechanical Ventilator 06/06/17 07:03 68 16 28 06/06/17 07:02 68 16 99 Mechanical Ventilator 28 06/06/17 05:25 69 16 28 06/06/17 04:00 98.1 70 16 138/75 99 Mechanical Ventilator 28 06/06/17 04:00 28 06/06/17 04:00 70 06/06/17 03:36 72 16 100 Mechanical Ventilator 06/06/17 03:29 71 16 100 Mechanical Ventilator 28 06/06/17 03:28 71 16 28 06/06/17 01:52 68 16 28 06/06/17 00:00 72 06/06/17 00:00 28 06/06/17 00:00 98.7 72 16 134/62 99 Mechanical Ventilator 28 06/05/17 23:32 68 16 100 Mechanical Ventilator 06/05/17 23:20 68 16 28 06/05/17 23:16 69 16 100 Mechanical Ventilator 28 Intake and Output 06/06/17 06/07/17 19:00 07:00 Intake Total 650 ml Output Total 900 ml Balance -250 ml Free Water 300 ml Tube Feeding 350 ml Output Urine Total 900 ml # Bowel Movements 1 Laboratory Tests 06/06/17 04:00: White Blood Count 10.4, Red Blood Count 2.82L, Hemoglobin 9.0L, Hematocrit 28.6L , Mean Corpuscular Volume 101H, Mean Corpuscular Hemoglobin 32.0H, Mean Corpuscular Hemoglobin Concent 31.6L, Red Cell Distribution Width 22.6H, Platelet Count 324, Mean Platelet Volume 7.4, Neutrophils (%) (Auto) 80.8H, Lymphocytes (%) (Auto) 9.8L, Monocytes (%) (Auto) 6.1, Eosinophils (%) (Auto) 2.4, Basophils (%) (Auto) 0.9, Sodium Level 141, Potassium Level 4.6, Chloride Level 104, Carbon Dioxide Level 27, Anion Gap 10, Blood Urea Nitrogen 63H, Creatinine 1.3, Estimat Glomerular Filtration Rate 41.5, Glucose Level 133H, Uric Acid 4.8, Calcium Level 8.8, Phosphorus Level 4.6, Magnesium Level 2.0, Total Bilirubin 0.6, Aspartate Amino Transf (AST/SGOT) 15, Alanine Aminotransferase (ALT/SGPT) 20, Alkaline Phosphatase 129H, C-Reactive Protein, Quantitative 1.5H, Pro-B-Type Natriuretic Peptide 2497H, Total Protein 6.5, Albumin 2.7L, Globulin 3.8, Albumin/Globulin Ratio 0.7L Height (Feet): 5 Height (Inches): 0.00 Weight (Pounds): 231 Objective Obese WW NCAT supple Chest: coarse BS RRR obese, firm and distended abd, (+) GT GT changed with 18 Fr replacement (06/06/17) (++) edema / anasarca OBS JILL WHITNEY Jun 06, 2017 22:34
[2017-06-07] VITALS: BP 156/75
[2017-06-07] MEDS: Bumetanide 2.5mg/10ml Inj IVP SCH ×3 (00:13→22:13)
[2017-06-07] MEDS: Ipratropium 0.02% Inh Soln 2.5ml UD HHN SCH ×6 (03:02→23:45)
[2017-06-07] MEDS: Albuterol ud Inhalation HHN SCH ×6 (03:02→23:45)
[2017-06-07 04:00] VITALS: BP 153/88
[2017-06-07 05:29] LABS: BASOPHILS % (AUTO) 1.1 % (0.0-2.0); EOSINOPHILS % (AUTO) 1.7 % (0.0-3.0); MEAN CORPUSCULAR HGB CONC 31.7 G/DL (32.0-36.0); MEAN CORPUSCULAR VOLUME 101 FL (80-99); MEAN PLATELET VOLUME 7.3 FL (6.5-10.1); MONOCYTES % (AUTO) 4.4 % (1.0-10.0); NEUTROPHILS % (AUTO) 77.8 % (45.0-75.0); PLATELET COUNT 328 K/UL (150-450); RED BLOOD COUNT 2.92 M/UL (4.20-5.40); RED CELL DISTRIBUTION WIDTH 21.7 % (11.6-14.8)
[2017-06-07 06:02] LABS: ANION GAP 8 mmol/L (5-15); CALCIUM 8.9 MG/DL (8.5-10.1); CARBON DIOXIDE 28 MMOL/L (21-32); CHLORIDE 105 MMOL/L (98-107); CREATININE 1.3 MG/DL (0.55-1.30); GLOMERULAR FILTRATION RATE 41.5 mL/min (>60); POTASSIUM 4.6 MMOL/L (3.5-5.1); SODIUM 141 MMOL/L (136-145)
[2017-06-07] MEDS: NovoLOG Insulin Flexpen SUBQ SCH ×4 (06:45→17:59)
[2017-06-07 08:00] VITALS: BP 162/94
--- NOTE | 2017-06-07 08:03 | Infectious Diseases Prog Note ---
Assessment/Plan Assessment/Plan A 1. klebsiella UTI treated 2. leucocytosis improving 3. VDRF 4. DM 5. HPN 6. anoxic brain injury 7. Anasarca 8. Pericardial effusion 9. ascites P 1. Observe off antibiotic Subjective ROS Limited/Unobtainable: Yes Allergies: Coded Allergies: OLANZAPINE (Verified Allergy, Severe, RESP FAILURE, 11/25/13) VANCOMYCIN (Verified Allergy, Severe, 11/25/13) PIPERACILLIN (Verified Allergy, Intermediate, HIVES, 11/25/13) TAZOBACTAM (Verified Allergy, Intermediate, HIVES, 11/25/13) Objective Vital Signs Last 24 Hour Vital Signs Date Time Temp Pulse Resp B/P (MAP) Pulse Ox O2 Delivery O2 Flow Rate FiO2 06/07/17 07:53 70 16 100 Mechanical Ventilator 15.0 06/07/17 07:42 28 06/07/17 07:42 69 16 100 Mechanical Ventilator 15.0 28 06/07/17 07:40 74 16 28 06/07/17 05:21 76 16 28 06/07/17 04:05 17 99 Mechanical Ventilator 06/07/17 04:00 76 06/07/17 04:00 98.1 77 16 153/88 99 Mechanical Ventilator 06/07/17 04:00 28 06/07/17 03:11 74 16 100 Mechanical Ventilator 06/07/17 03:05 71 16 28 06/07/17 03:02 71 16 100 Mechanical Ventilator 06/07/17 00:47 90 16 28 06/07/17 00:00 98.2 82 16 156/75 99 Mechanical Ventilator 06/07/17 00:00 28 06/07/17 00:00 81 06/06/17 23:22 81 16 100 Mechanical Ventilator 28 06/06/17 23:08 81 16 28 06/06/17 23:07 81 16 98 Mechanical Ventilator 28 06/06/17 21:29 81 16 28 06/06/17 20:05 75 16 98 Mechanical Ventilator 28 06/06/17 20:00 71 16 28 06/06/17 20:00 74 06/06/17 20:00 28 06/06/17 20:00 98.1 72 16 149/79 96 Mechanical Ventilator 06/06/17 19:54 73 16 99 Mechanical Ventilator 28 06/06/17 17:00 78 16 28 06/06/17 16:00 75 06/06/17 16:00 28 06/06/17 15:23 62 16 100 Mechanical Ventilator 06/06/17 15:00 66 16 28 06/06/17 14:57 66 16 99 Mechanical Ventilator 28 06/06/17 12:45 71 16 28 06/06/17 12:00 28 06/06/17 12:00 97.7 67 16 154/87 100 Mechanical Ventilator 06/06/17 12:00 63 06/06/17 10:54 71 16 Mechanical Ventilator 06/06/17 10:44 59 16 Mechanical Ventilator 06/06/17 10:40 72 16 28 06/06/17 09:00 72 16 28 06/06/17 08:59 75 Height (Feet): 5 Height (Inches): 0.00 Weight (Pounds): 232 HEENT: status post trach Respiratory/Chest: lungs clear, other - on ventilator Cardiovascular: normal rate, other - right arm PICC line Abdomen: soft, non tender, other - GT feeding Extremities: other - anasarca Neurologic/Psychiatric: unresponsiveness Microbiology Date/Time Source Procedure Growth Status 06/04/17 09:00 Sputum Gram Stain - Final Complete 06/04/17 09:00 Sputum Culture - Final Serratia Marcescens Stenotrophomonas Maltophilia Complete Laboratory Tests Test 06/07/17 04:00 White Blood Count 9.0 K/UL (4.8-10.8) Red Blood Count 2.92 M/UL (4.20-5.40) L Hemoglobin 9.3 G/DL (12.0-16.0) L Hematocrit 29.5 % (37.0-47.0) L Mean Corpuscular Volume 101 FL (80-99) H Mean Corpuscular Hemoglobin 32.0 PG (27.0-31.0) H Mean Corpuscular Hemoglobin Concent 31.7 G/DL (32.0-36.0) L Red Cell Distribution Width 21.7 % (11.6-14.8) H Platelet Count 328 K/UL (150-450) Mean Platelet Volume 7.3 FL (6.5-10.1) Neutrophils (%) (Auto) 77.8 % (45.0-75.0) H Lymphocytes (%) (Auto) 15.0 % (20.0-45.0) L Monocytes (%) (Auto) 4.4 % (1.0-10.0) Eosinophils (%) (Auto) 1.7 % (0.0-3.0) Basophils (%) (Auto) 1.1 % (0.0-2.0) Sodium Level 141 MMOL/L (136-145) Potassium Level 4.6 MMOL/L (3.5-5.1) Chloride Level 105 MMOL/L (98-107) Carbon Dioxide Level 28 MMOL/L (21-32) Anion Gap 8 mmol/L (5-15) Blood Urea Nitrogen 64 mg/dL (7-18) H Creatinine 1.3 MG/DL (0.55-1.30) Estimat Glomerular Filtration Rate 41.5 mL/min (>60) Glucose Level 111 MG/DL (74-106) H Calcium Level 8.9 MG/DL (8.5-10.1) Current Medications Medications (Trade) Dose Ordered Sig/Alex Route PRN Reason Start Time Stop Time Status Last Admin Dose Admin Acetaminophen (Tylenol) 650 mg Q6H PRN GT Mild Pain/Temp > 100.5 05/30/17 01:15 06/22/17 19:14 Albuterol Sulfate (Proventil) 2.5 mg Q4HRT HHN 06/02/17 21:00 06/07/17 20:59 06/07/17 07:45 Allopurinol (Zyloprim) 100 mg DAILY GT 06/05/17 09:00 07/05/17 08:59 06/06/17 08:26 Amiodarone HCl (Cordarone) 200 mg BID GT 06/01/17 09:00 06/26/17 20:59 06/06/17 17:16 Atenolol (Tenormin) 12.5 mg DAILY GT 05/30/17 09:00 06/24/17 10:59 06/06/17 08:26 Bisacodyl (Dulcolax) 5 mg DAILYPRN PRN RECTAL Constipation 05/29/17 20:30 06/22/17 20:29 Chlorhexidine Gluconate (Rubina-Hex 2%) 1 applic DAILY@2000 TOPIC 05/29/17 20:00 06/24/17 19:59 06/06/17 20:25 Dextrose (Dextrose 50%) STAT PRN IV Hypoglycemia 05/30/17 08:30 06/23/17 08:29 Epoetin Amadou (Procrit (for non ESRD use)) 7,500 units SUN-SUN-SUN SUBQ 06/04/17 21:00 07/04/17 20:59 06/06/17 21:36 Heparin Sodium (Porcine) (Heparin 5000 units/ml) 5,000 units EVERY 12 HOURS SUBQ 05/29/17 21:00 06/22/17 08:59 06/06/17 20:29 Insulin Aspart (NovoLOG) EVERY 6 HOURS SUBQ 05/30/17 00:00 06/23/17 11:29 06/07/17 06:45 Ipratropium [place] (Atrovent) 500 mcg Q4HRT HHN 06/02/17 21:00 06/07/17 20:59 06/07/17 07:45 Lansoprazole (Prevacid) 30 mg DAILY GT 05/31/17 09:00 06/30/17 08:59 06/06/17 08:26 Levothyroxine Sodium (Synthroid) 75 mcg ACBREAKFAST GT 05/30/17 06:30 06/21/17 06:29 06/07/17 06:43 Levothyroxine Sodium (Synthroid) 100 mcg ACBREAKFAST GT 05/30/17 06:30 06/21/17 06:29 06/07/17 06:43 Midodrine (Pro-Amatine) 10 mg TIDPRN PRN ORAL bp below 100 syst 06/04/17 13:00 07/04/17 12:59 Patient Own Medication (Patient's Own Med) 1 ea BID ORAL 05/30/17 09:00 06/28/17 17:59 06/06/17 17:17 Patient Own Medication (Patient's Own Med) 1 ea QID BOTH EYES 05/29/17 21:00 06/28/17 17:59 06/06/17 20:25 Patient Own Medication (Patient's Own Med) 1 ea QID BOTH EYES 05/29/17 21:00 06/22/17 20:59 06/06/17 20:25 EPIFANIO NGUYEN Jun 07, 2017 08:03
--- NOTE | 2017-06-07 08:52 | Pulmonology Progress Note ---
Assessment/Plan Assessment/Plan IMPRESSION respiratory failure possible UTI sepsis ARF/CRF hyperkalemia pericardial effusion possible renal cyst vs mass hypertension (now with normal BP off meds) chronic encephalopathy hypothyroidism diabetes possible cirrhosis atrial fib, paroxysmal hyperuricemia pain possible ascites pericardial fluid collection anasarca s/p bronchoscopy PLAN ventilator management- as is monitor acid base monitor PIP sliding scale and monitor sugars- sugars controlled monitor for residuals GT care GI/renal/ID/cards evaluation monitor clinically off antibiotics WBC noted monitor off HD and await renal recommendations and clearance still needs pericardial evaluation once able to transfer follow up labs for change- not significantly different at present prognosis guarded at this time sister updated medications/laboratory data/nursing notes reviewed in detail note reviewed and edited care discussed with RN and RT Subjective ROS Limited/Unobtainable: Yes Allergies: Coded Allergies: OLANZAPINE (Verified Allergy, Severe, RESP FAILURE, 11/25/13) VANCOMYCIN (Verified Allergy, Severe, 11/25/13) PIPERACILLIN (Verified Allergy, Intermediate, HIVES, 11/25/13) TAZOBACTAM (Verified Allergy, Intermediate, HIVES, 11/25/13) Subjective overnight events reviewed labs noted noted UO and nephro recommendations speciality care reviewed Objective Last 24 Hour Vital Signs Date Time Temp Pulse Resp B/P (MAP) Pulse Ox O2 Delivery O2 Flow Rate FiO2 06/07/17 07:53 70 16 100 Mechanical Ventilator 15.0 06/07/17 07:42 28 06/07/17 07:42 69 16 100 Mechanical Ventilator 15.0 28 06/07/17 07:40 74 16 28 06/07/17 05:21 76 16 28 06/07/17 04:05 17 99 Mechanical Ventilator 06/07/17 04:00 76 06/07/17 04:00 98.1 77 16 153/88 99 Mechanical Ventilator 06/07/17 04:00 28 06/07/17 03:11 74 16 100 Mechanical Ventilator 06/07/17 03:05 71 16 28 06/07/17 03:02 71 16 100 Mechanical Ventilator 28 06/07/17 00:47 90 16 28 06/07/17 00:00 98.2 82 16 156/75 99 Mechanical Ventilator 28 06/07/17 00:00 28 06/07/17 00:00 81 06/06/17 23:22 81 16 100 Mechanical Ventilator 06/06/17 23:08 81 16 28 06/06/17 23:07 81 16 98 Mechanical Ventilator 28 06/06/17 21:29 81 16 28 06/06/17 20:05 75 16 98 Mechanical Ventilator 28 06/06/17 20:00 71 16 28 06/06/17 20:00 74 06/06/17 20:00 28 06/06/17 20:00 98.1 72 16 149/79 96 Mechanical Ventilator 28 06/06/17 19:54 73 16 99 Mechanical Ventilator 28 06/06/17 17:00 78 16 28 06/06/17 16:00 75 06/06/17 16:00 28 06/06/17 15:23 62 16 100 Mechanical Ventilator 06/06/17 15:00 66 16 28 06/06/17 14:57 66 16 99 Mechanical Ventilator 28 06/06/17 12:45 71 16 28 06/06/17 12:00 28 06/06/17 12:00 97.7 67 16 154/87 100 Mechanical Ventilator 28 06/06/17 12:00 63 06/06/17 10:54 71 16 Mechanical Ventilator 06/06/17 10:44 59 16 Mechanical Ventilator 28 06/06/17 10:40 72 16 28 06/06/17 09:00 72 16 28 06/06/17 08:59 75 Objective WDWN female chronically ill NAD coarse breath sounds bilaterally without rhonchi or wheeze PIP reviewed [id number] without MRG NABS nontender no HSM; protuberant; GT- no CC noted edema has improved short neck unresponsive reviewed and edited Microbiology Date/Time Source Procedure Growth Status 06/04/17 09:00 Sputum Gram Stain - Final Complete 06/04/17 09:00 Sputum Culture - Final Serratia Marcescens Stenotrophomonas Maltophilia Complete Laboratory Tests 06/07/17 04:00: White Blood Count 9.0, Red Blood Count 2.92L, Hemoglobin 9.3L, Hematocrit 29.5L , Mean Corpuscular Volume 101H, Mean Corpuscular Hemoglobin 32.0H, Mean Corpuscular Hemoglobin Concent 31.7L, Red Cell Distribution Width 21.7H, Platelet Count 328, Mean Platelet Volume 7.3, Neutrophils (%) (Auto) 77.8H, Lymphocytes (%) (Auto) 15.0L, Monocytes (%) (Auto) 4.4, Eosinophils (%) (Auto) 1.7, Basophils (%) (Auto) 1.1, Sodium Level 141, Potassium Level 4.6, Chloride Level 105, Carbon Dioxide Level 28, Anion Gap 8, Blood Urea Nitrogen 64H, Creatinine 1.3, Estimat Glomerular Filtration Rate 41.5, Glucose Level 111H, Calcium Level 8.9 Current Medications Medications (Trade) Dose Ordered Sig/Alex Route PRN Reason Start Time Stop Time Status Last Admin Dose Admin Acetaminophen (Tylenol) 650 mg Q6H PRN GT Mild Pain/Temp > 100.5 05/30/17 01:15 06/22/17 19:14 Albuterol Sulfate (Proventil) 2.5 mg Q4HRT HHN 06/02/17 21:00 06/07/17 20:59 06/07/17 07:45 Allopurinol (Zyloprim) 100 mg DAILY GT 06/05/17 09:00 07/05/17 08:59 06/06/17 08:26 Amiodarone HCl (Cordarone) 200 mg BID GT 06/01/17 09:00 06/26/17 20:59 06/06/17 17:16 Atenolol (Tenormin) 12.5 mg DAILY GT 05/30/17 09:00 06/24/17 10:59 06/06/17 08:26 Bisacodyl (Dulcolax) 5 mg DAILYPRN PRN RECTAL Constipation 05/29/17 20:30 06/22/17 20:29 Chlorhexidine Gluconate (Rubina-Hex 2%) 1 applic DAILY@2000 TOPIC 05/29/17 20:00 06/24/17 19:59 06/06/17 20:25 Dextrose (Dextrose 50%) STAT PRN IV Hypoglycemia 05/30/17 08:30 06/23/17 08:29 Epoetin Amadou (Procrit (for non ESRD use)) 7,500 units MON-WED-SUN SUBQ 06/04/17 21:00 07/04/17 20:59 06/06/17 21:36 Heparin Sodium (Porcine) (Heparin 5000 units/ml) 5,000 units EVERY 12 HOURS SUBQ 05/29/17 21:00 06/22/17 08:59 06/06/17 20:29 Insulin Aspart (NovoLOG) EVERY 6 HOURS SUBQ 05/30/17 00:00 06/23/17 11:29 06/07/17 06:45 Ipratropium [place] (Atrovent) 500 mcg Q4HRT HHN 06/02/17 21:00 06/07/17 20:59 06/07/17 07:45 Lansoprazole (Prevacid) 30 mg DAILY GT 05/31/17 09:00 06/30/17 08:59 06/06/17 08:26 Levothyroxine Sodium (Synthroid) 75 mcg ACBREAKFAST GT 05/30/17 06:30 06/21/17 06:29 06/07/17 06:43 Levothyroxine Sodium (Synthroid) 100 mcg ACBREAKFAST GT 05/30/17 06:30 06/21/17 06:29 06/07/17 06:43 Midodrine (Pro-Amatine) 10 mg TIDPRN PRN ORAL bp below 100 syst 06/04/17 13:00 07/04/17 12:59 Patient Own Medication (Patient's Own Med) 1 ea BID ORAL 05/30/17 09:00 06/28/17 17:59 06/06/17 17:17 Patient Own Medication (Patient's Own Med) 1 ea QID BOTH EYES 05/29/17 21:00 06/28/17 17:59 06/06/17 20:25 Patient Own Medication (Patient's Own Med) 1 ea QID BOTH EYES 05/29/17 21:00 06/22/17 20:59 06/06/17 20:25 ANTIONETTE RODRIGUEZ Jun 07, 2017 08:52
[2017-06-07] MEDS: SYSTANE ULTRA BOTH EYES SCH ×4 (09:00→22:00)
[2017-06-07] MEDS: [UNRECOGNIZED DRUG - OTHER] ORAL SCH ×2 (09:35→17:21)
[2017-06-07] MEDS: Amiodarone 200mg tab GT SCH ×2 (09:35→17:21)
[2017-06-07] MEDS: [UNRECOGNIZED DRUG - OTHER] BOTH EYES SCH ×4 (09:35→22:12)
[2017-06-07] MEDS: Allopurinol 100mg Tab GT SCH (09:36)
[2017-06-07] MEDS: Atenolol 12.5mg GT SCH (09:36)
[2017-06-07] MEDS: Heparin 5000 units/ml inj SUBQ SCH ×2 (09:37→22:14)
--- NOTE | 2017-06-07 11:38 | General Progress Note ---
Assessment/Plan Assessment/Plan Assessment - Encephalopathy - Resp failure - Trach - dysphagia - PEG (changed) - abnormal LFT--> Improving - edema / anasarca - abd distention due to ascites - no SBP on tap - UTI/PNA - leukocytosis --> Improving - azotemia - slightly higher Cr today - pericardial effusion - marked thrombocytosis - resolved - poor Px Recommendations - continue TF - f/u hepatitis serologies --> Negative - diurese as feasible - continue abx - watch Cr - d/c planning Subjective Allergies: Coded Allergies: OLANZAPINE (Verified Allergy, Severe, RESP FAILURE, 11/25/13) VANCOMYCIN (Verified Allergy, Severe, 11/25/13) PIPERACILLIN (Verified Allergy, Intermediate, HIVES, 11/25/13) TAZOBACTAM (Verified Allergy, Intermediate, HIVES, 11/25/13) Subjective d/w RN tolerating TF abd distended without change Objective Last 24 Hour Vital Signs Date Time Temp Pulse Resp B/P (MAP) Pulse Ox O2 Delivery O2 Flow Rate FiO2 06/07/17 11:16 64 16 100 Mechanical Ventilator 15.0 06/07/17 10:57 28 06/07/17 10:57 66 16 100 Mechanical Ventilator 15.0 28 06/07/17 10:55 66 16 28 06/07/17 09:27 64 16 28 06/07/17 08:00 70 06/07/17 08:00 98.0 70 16 162/94 100 Mechanical Ventilator 06/07/17 08:00 28 06/07/17 07:53 70 16 100 Mechanical Ventilator 15.0 06/07/17 07:42 28 06/07/17 07:42 69 16 100 Mechanical Ventilator 15.0 06/07/17 07:40 74 16 28 06/07/17 07:34 73 06/07/17 05:21 76 16 28 06/07/17 04:05 17 99 Mechanical Ventilator 28 06/07/17 04:00 76 06/07/17 04:00 98.1 77 16 153/88 99 Mechanical Ventilator 06/07/17 04:00 28 06/07/17 03:11 74 16 100 Mechanical Ventilator 28 06/07/17 03:05 71 16 28 06/07/17 03:02 71 16 100 Mechanical Ventilator 28 06/07/17 00:47 90 16 28 06/07/17 00:00 98.2 82 16 156/75 99 Mechanical Ventilator 28 06/07/17 00:00 28 06/07/17 00:00 81 06/06/17 23:22 81 16 100 Mechanical Ventilator 28 06/06/17 23:08 81 16 28 06/06/17 23:07 81 16 98 Mechanical Ventilator 28 06/06/17 21:29 81 16 28 06/06/17 20:05 75 16 98 Mechanical Ventilator 28 06/06/17 20:00 71 16 28 06/06/17 20:00 74 06/06/17 20:00 28 06/06/17 20:00 98.1 72 16 149/79 96 Mechanical Ventilator 28 06/06/17 19:54 73 16 99 Mechanical Ventilator 28 06/06/17 17:00 78 16 28 06/06/17 16:00 75 06/06/17 16:00 28 06/06/17 15:23 62 16 100 Mechanical Ventilator 06/06/17 15:00 66 16 28 06/06/17 14:57 66 16 99 Mechanical Ventilator 28 06/06/17 12:45 71 16 28 06/06/17 12:00 28 06/06/17 12:00 97.7 67 16 154/87 100 Mechanical Ventilator 28 06/06/17 12:00 63 Laboratory Tests 06/07/17 04:00: White Blood Count 9.0, Red Blood Count 2.92L, Hemoglobin 9.3L, Hematocrit 29.5L , Mean Corpuscular Volume 101H, Mean Corpuscular Hemoglobin 32.0H, Mean Corpuscular Hemoglobin Concent 31.7L, Red Cell Distribution Width 21.7H, Platelet Count 328, Mean Platelet Volume 7.3, Neutrophils (%) (Auto) 77.8H, Lymphocytes (%) (Auto) 15.0L, Monocytes (%) (Auto) 4.4, Eosinophils (%) (Auto) 1.7, Basophils (%) (Auto) 1.1, Sodium Level 141, Potassium Level 4.6, Chloride Level 105, Carbon Dioxide Level 28, Anion Gap 8, Blood Urea Nitrogen 64H, Creatinine 1.3, Estimat Glomerular Filtration Rate 41.5, Glucose Level 111H, Calcium Level 8.9 Height (Feet): 5 Height (Inches): 0.00 Weight (Pounds): 232 Objective Obese WW NCAT supple Chest: coarse BS RRR obese, firm and distended abd, (+) GT (++) edema / anasarca OBS JILL WHITNEY Jun 07, 2017 11:38
[2017-06-07 12:00] VITALS: BP 147/79
--- NOTE | 2017-06-07 15:55 | Nephrology Progress Note ---
Assessment/Plan Assessment 1) Chronic VDRF 2) GELA 3) S/P septic shock 4) Fluid overload/CHF probably due to chronic diastolic CHF Plan: Will Give Bumex 2 mg IV Q8 x2 again Will check renal scan to determine GFR Subjective Subjective She is still on the vent, had good diuresis, creat is still 1.3, less sob Objective Objective Last 24 Hour Vital Signs Date Time Temp Pulse Resp B/P (MAP) Pulse Ox O2 Delivery O2 Flow Rate FiO2 06/07/17 15:43 68 16 100 Mechanical Ventilator 28 06/07/17 15:31 28 06/07/17 15:22 68 16 100 Mechanical Ventilator 28 06/07/17 15:20 68 16 28 06/07/17 13:28 70 16 28 06/07/17 12:00 98.1 74 18 147/79 99 Mechanical Ventilator 06/07/17 11:56 75 06/07/17 11:56 28 06/07/17 11:16 64 16 100 Mechanical Ventilator 15.0 06/07/17 10:57 28 06/07/17 10:57 66 16 100 Mechanical Ventilator 15.0 06/07/17 10:55 66 16 28 06/07/17 09:27 64 16 28 06/07/17 08:00 70 06/07/17 08:00 98.0 70 16 162/94 100 Mechanical Ventilator 06/07/17 08:00 28 06/07/17 07:53 70 16 100 Mechanical Ventilator 15.0 06/07/17 07:42 28 06/07/17 07:42 69 16 100 Mechanical Ventilator 15.0 06/07/17 07:40 74 16 28 06/07/17 07:34 73 06/07/17 05:21 76 16 28 06/07/17 04:05 17 99 Mechanical Ventilator 06/07/17 04:00 76 06/07/17 04:00 98.1 77 16 153/88 99 Mechanical Ventilator 06/07/17 04:00 28 06/07/17 03:11 74 16 100 Mechanical Ventilator 06/07/17 03:05 71 16 28 06/07/17 03:02 71 16 100 Mechanical Ventilator 06/07/17 00:47 90 16 28 06/07/17 00:00 98.2 82 16 156/75 99 Mechanical Ventilator 06/07/17 00:00 28 06/07/17 00:00 81 06/06/17 23:22 81 16 100 Mechanical Ventilator 28 06/06/17 23:08 81 16 28 06/06/17 23:07 81 16 98 Mechanical Ventilator 28 06/06/17 21:29 81 16 28 06/06/17 20:05 75 16 98 Mechanical Ventilator 06/06/17 20:00 71 16 28 06/06/17 20:00 74 06/06/17 20:00 28 06/06/17 20:00 98.1 72 16 149/79 96 Mechanical Ventilator 06/06/17 19:54 73 16 99 Mechanical Ventilator 06/06/17 17:00 78 16 28 06/06/17 16:00 75 06/06/17 16:00 28 Laboratory Tests 06/07/17 04:00: White Blood Count 9.0, Red Blood Count 2.92L, Hemoglobin 9.3L, Hematocrit 29.5L , Mean Corpuscular Volume 101H, Mean Corpuscular Hemoglobin 32.0H, Mean Corpuscular Hemoglobin Concent 31.7L, Red Cell Distribution Width 21.7H, Platelet Count 328, Mean Platelet Volume 7.3, Neutrophils (%) (Auto) 77.8H, Lymphocytes (%) (Auto) 15.0L, Monocytes (%) (Auto) 4.4, Eosinophils (%) (Auto) 1.7, Basophils (%) (Auto) 1.1, Sodium Level 141, Potassium Level 4.6, Chloride Level 105, Carbon Dioxide Level 28, Anion Gap 8, Blood Urea Nitrogen 64H, Creatinine 1.3, Estimat Glomerular Filtration Rate 41.5, Glucose Level 111H, Calcium Level 8.9 Height (Feet): 5 Height (Inches): 0.00 Weight (Pounds): 232 General Appearance: WD/WN, no apparent distress, other - on the vent EENT: PERRL/EOMI Neck: non-tender, normal alignment Cardiovascular: normal rate, regular rhythm Respiratory/Chest: lungs clear, decreased breath sounds Abdomen: normal bowel sounds, non tender, soft Extremities: moderate edema 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
[2017-06-07 16:00] VITALS: BP 168/83
[2017-06-07] MEDS ORDERED: 1/2 NS 1000ml IV ONE (17:27)
[2017-06-07] MEDS ORDERED: NS 500ML ONE (17:27)
[2017-06-07 20:00] VITALS: BP 148/48
--- NOTE | 2017-06-07 20:41 | General Progress Note ---
Assessment/Plan Problem List: (1) Sepsis ICD Codes: A41.9 - Sepsis, unspecified organism SNOMED: 29682460 (2) Pneumonia ICD Codes: J18.9 - Pneumonia, unspecified organism SNOMED: 999557664 (3) Acute renal failure ICD Codes: N17.9 - Acute kidney failure, unspecified SNOMED: 54439301 (4) Pericardial effusion ICD Codes: I31.3 - Pericardial effusion (noninflammatory) SNOMED: 964383218 (5) Tracheostomy malfunction ICD Codes: J95.03 - Malfunction of tracheostomy stoma SNOMED: 54461670 (6) UTI (urinary tract infection) ICD Codes: N39.0 - Urinary tract infection, site not specified SNOMED: 62126353, 563230880 Qualifiers: Qualified Codes: N30.01 - Acute cystitis with hematuria Status: stable, progressing Assessment/Plan diuresis per renal monitor labs monitor off abx monitor wbc- improving vent support resp rx monitor renal fxn poor prognosis. d/w caregiver. transfuse as needed dnr prognosis remains poor percardial effusion better- no need to transfer per cards Subjective ROS Limited/Unobtainable: Yes Constitutional: Reports: malaise, weakness HEENT: Reports: no symptoms Cardiovascular: Reports: edema Respiratory: Reports: shortness of breath, sputum Gastrointestinal/Abdominal: Reports: abdomen distended Genitourinary: Reports: no symptoms Neurologic/Psychiatric: Reports: pre-existing deficit Endocrine: Reports: no symptoms Hematologic/Lymphatic: Reports: anemia Allergies: Coded Allergies: OLANZAPINE (Verified Allergy, Severe, RESP FAILURE, 11/25/13) VANCOMYCIN (Verified Allergy, Severe, 11/25/13) PIPERACILLIN (Verified Allergy, Intermediate, HIVES, 11/25/13) TAZOBACTAM (Verified Allergy, Intermediate, HIVES, 11/25/13) All Systems: reviewed and negative except above Subjective no events. improved uop with bumex. still with edema though. no fevers. labs reviewed. on the vent. nonverbal. Objective Last 24 Hour Vital Signs Date Time Temp Pulse Resp B/P (MAP) Pulse Ox O2 Delivery O2 Flow Rate FiO2 06/07/17 19:19 63 16 99 Mechanical Ventilator 28 06/07/17 19:01 69 16 99 Mechanical Ventilator 28 06/07/17 18:58 69 18 28 06/07/17 17:29 66 18 28 06/07/17 16:00 97.8 66 18 168/83 99 Mechanical Ventilator 28 06/07/17 16:00 28 06/07/17 16:00 66 06/07/17 15:43 68 16 100 Mechanical Ventilator 28 06/07/17 15:31 28 06/07/17 15:22 68 16 100 Mechanical Ventilator 28 06/07/17 15:20 68 16 28 06/07/17 13:28 70 16 28 06/07/17 12:00 98.1 74 18 147/79 99 Mechanical Ventilator 28 06/07/17 11:56 75 06/07/17 11:56 28 06/07/17 11:16 64 16 100 Mechanical Ventilator 15.0 28 06/07/17 10:57 28 06/07/17 10:57 66 16 100 Mechanical Ventilator 15.0 28 06/07/17 10:55 66 16 28 06/07/17 09:27 64 16 28 06/07/17 08:00 70 06/07/17 08:00 98.0 70 16 162/94 100 Mechanical Ventilator 28 06/07/17 08:00 28 06/07/17 07:53 70 16 100 Mechanical Ventilator 15.0 28 06/07/17 07:42 28 06/07/17 07:42 69 16 100 Mechanical Ventilator 15.0 28 06/07/17 07:40 74 16 28 06/07/17 07:34 73 06/07/17 05:21 76 16 28 06/07/17 04:05 17 99 Mechanical Ventilator 28 06/07/17 04:00 76 06/07/17 04:00 98.1 77 16 153/88 99 Mechanical Ventilator 06/07/17 04:00 28 06/07/17 03:11 74 16 100 Mechanical Ventilator 28 06/07/17 03:05 71 16 28 06/07/17 03:02 71 16 100 Mechanical Ventilator 28 06/07/17 00:47 90 16 28 06/07/17 00:00 98.2 82 16 156/75 99 Mechanical Ventilator 28 06/07/17 00:00 28 06/07/17 00:00 81 06/06/17 23:22 81 16 100 Mechanical Ventilator 28 06/06/17 23:08 81 16 28 06/06/17 23:07 81 16 98 Mechanical Ventilator 28 06/06/17 21:29 81 16 28 Intake and Output 06/07/17 06/08/17 19:00 07:00 Intake Total 780 ml Output Total 750 ml Balance 30 ml Free Water 300 ml Tube Feeding 480 ml Output Urine Total 750 ml # Bowel Movements 1 Laboratory Tests 06/07/17 04:00: White Blood Count 9.0, Red Blood Count 2.92L, Hemoglobin 9.3L, Hematocrit 29.5L , Mean Corpuscular Volume 101H, Mean Corpuscular Hemoglobin 32.0H, Mean Corpuscular Hemoglobin Concent 31.7L, Red Cell Distribution Width 21.7H, Platelet Count 328, Mean Platelet Volume 7.3, Neutrophils (%) (Auto) 77.8H, Lymphocytes (%) (Auto) 15.0L, Monocytes (%) (Auto) 4.4, Eosinophils (%) (Auto) 1.7, Basophils (%) (Auto) 1.1, Sodium Level 141, Potassium Level 4.6, Chloride Level 105, Carbon Dioxide Level 28, Anion Gap 8, Blood Urea Nitrogen 64H, Creatinine 1.3, Estimat Glomerular Filtration Rate 41.5, Glucose Level 111H, Calcium Level 8.9 Height (Feet): 5 Height (Inches): 0.00 Weight (Pounds): 232 Objective General Appearance: WD/WN, alert Neck: supple Cardiovascular: regular rhythm Respiratory/Chest: lungs clear Abdomen: hypoactive bowel sounds, distended Edema: severe edema Neurologic: unresponsive OCHOA BISWAS Jun 07, 2017 20:41
[2017-06-07] MEDS: Dyna-Hex 2% Top Sol 2oz TOPIC SCH (22:12)
[2017-06-08] VITALS (7 sets, daily range): BP systolic 144–162; BP diastolic 65–100
[2017-06-08] MEDS: NovoLOG Insulin Flexpen SUBQ SCH ×4 (00:12→18:00)
[2017-06-08] MEDS: Ipratropium 0.02% Inh Soln 2.5ml UD HHN SCH ×6 (03:01→23:34)
[2017-06-08] MEDS: Albuterol ud Inhalation HHN SCH ×6 (03:01→23:34)
[2017-06-08 06:11] LABS: BASOPHILS % (AUTO) 0.8 % (0.0-2.0); EOSINOPHILS % (AUTO) 2.1 % (0.0-3.0); MEAN CORPUSCULAR HGB CONC 31.2 G/DL (32.0-36.0); MEAN CORPUSCULAR VOLUME 99 FL (80-99); MEAN PLATELET VOLUME 7.5 FL (6.5-10.1); MONOCYTES % (AUTO) 5.8 % (1.0-10.0); NEUTROPHILS % (AUTO) 78.3 % (45.0-75.0); PLATELET COUNT 331 K/UL (150-450); RED BLOOD COUNT 2.97 M/UL (4.20-5.40); WHITE BLOOD COUNT 8.2 K/UL (4.8-10.8)
[2017-06-08 06:39] LABS: ANION GAP 11 mmol/L (5-15); CALCIUM 8.9 MG/DL (8.5-10.1); CARBON DIOXIDE 25 MMOL/L (21-32); CHLORIDE 106 MMOL/L (98-107); CREATININE 1.3 MG/DL (0.55-1.30); GLOMERULAR FILTRATION RATE 41.5 mL/min (>60); POTASSIUM 4.4 MMOL/L (3.5-5.1); SODIUM 142 MMOL/L (136-145)
[2017-06-08] MEDS: Allopurinol 100mg Tab GT SCH (08:56)
[2017-06-08] MEDS: [UNRECOGNIZED DRUG - OTHER] BOTH EYES SCH ×4 (08:56→21:21)
[2017-06-08] MEDS: Amiodarone 200mg tab GT SCH ×2 (08:56→18:16)
[2017-06-08] MEDS: [UNRECOGNIZED DRUG - OTHER] ORAL SCH ×2 (08:57→18:16)
[2017-06-08] MEDS: Atenolol 12.5mg GT SCH (08:57)
[2017-06-08] MEDS: Heparin 5000 units/ml inj SUBQ SCH ×2 (09:00→21:00)
[2017-06-08] MEDS: SYSTANE ULTRA BOTH EYES SCH ×4 (11:26→21:21)
--- NOTE | 2017-06-08 12:38 | Infectious Diseases Prog Note ---
"Assessment/Plan Assessment/Plan antibiotics : none A 1. klebsiella UTI s/p rx 2. leucocytosis improving 3. respiratory failure 4. DM 5. HTN 6. anoxic brain injury 7. pericardial effusion 8. serratia | pseudomonas pneumonia s/p rx P 1. observe off antibiotics Subjective ROS Limited/Unobtainable: Yes Allergies: Coded Allergies: OLANZAPINE (Verified Allergy, Severe, RESP FAILURE, 11/25/13) VANCOMYCIN (Verified Allergy, Severe, 11/25/13) PIPERACILLIN (Verified Allergy, Intermediate, HIVES, 11/25/13) TAZOBACTAM (Verified Allergy, Intermediate, HIVES, 11/25/13) Objective Vital Signs Last 24 Hour Vital Signs Date Time Temp Pulse Resp B/P (MAP) Pulse Ox O2 Delivery O2 Flow Rate FiO2 06/08/17 11:16 28 06/08/17 11:16 78 16 100 Mechanical Ventilator 28 06/08/17 11:08 75 16 100 Mechanical Ventilator 28 06/08/17 11:02 69 16 28 06/08/17 09:15 78 16 28 06/08/17 07:24 28 06/08/17 07:24 77 16 100 Mechanical Ventilator 06/08/17 07:16 69 16 28 06/08/17 07:15 69 16 100 Mechanical Ventilator 06/08/17 04:47 70 16 28 06/08/17 04:00 28 06/08/17 04:00 72 06/08/17 03:59 98.0 74 17 144/87 100 Mechanical Ventilator 06/08/17 03:53 75 16 100 Mechanical Ventilator 28 06/08/17 03:03 28 06/08/17 02:59 75 16 100 Mechanical Ventilator 28 06/08/17 02:57 75 16 28 06/08/17 00:47 85 16 28 06/08/17 00:46 85 16 100 Mechanical Ventilator 28 06/08/17 00:05 17 100 Mechanical Ventilator 06/08/17 00:00 73 06/08/17 00:00 98.2 62 16 147/65 100 Mechanical Ventilator 28 06/08/17 00:00 28 06/07/17 23:48 77 16 100 Mechanical Ventilator 28 06/07/17 23:20 75 16 100 Mechanical Ventilator 28 06/07/17 23:04 77 16 28 06/07/17 21:10 75 16 28 06/07/17 20:05 16 100 Mechanical Ventilator 28 06/07/17 20:00 62 06/07/17 20:00 98.5 76 16 148/48 100 Mechanical Ventilator 28 06/07/17 19:19 63 16 99 Mechanical Ventilator 28 06/07/17 19:01 69 16 99 Mechanical Ventilator 28 06/07/17 18:58 69 18 28 06/07/17 17:29 66 18 28 06/07/17 16:00 97.8 66 18 168/83 99 Mechanical Ventilator 28 06/07/17 16:00 28 06/07/17 16:00 66 06/07/17 15:43 68 16 100 Mechanical Ventilator 28 06/07/17 15:31 28 06/07/17 15:22 68 16 100 Mechanical Ventilator 28 06/07/17 15:20 68 16 28 06/07/17 13:28 70 16 28 Height (Feet): 5 Height (Inches): 0.00 Weight (Pounds): 231 HEENT: status post trach Respiratory/Chest: lungs clear Cardiovascular: normal rate, regular rhythm, no gallop/murmur Abdomen: soft, non tender, other - GT Extremities: other - + edema, right arm PICC Laboratory Tests Test 06/08/17 04:00 White Blood Count 8.2 K/UL (4.8-10.8) Red Blood Count 2.97 M/UL (4.20-5.40) L Hemoglobin 9.2 G/DL (12.0-16.0) L Hematocrit 29.5 % (37.0-47.0) L Mean Corpuscular Volume 99 FL (80-99) Mean Corpuscular Hemoglobin 31.0 PG (27.0-31.0) Mean Corpuscular Hemoglobin Concent 31.2 G/DL (32.0-36.0) L Red Cell Distribution Width 21.0 % (11.6-14.8) H Platelet Count 331 K/UL (150-450) Mean Platelet Volume 7.5 FL (6.5-10.1) Neutrophils (%) (Auto) 78.3 % (45.0-75.0) H Lymphocytes (%) (Auto) 13.0 % (20.0-45.0) L Monocytes (%) (Auto) 5.8 % (1.0-10.0) Eosinophils (%) (Auto) 2.1 % (0.0-3.0) Basophils (%) (Auto) 0.8 % (0.0-2.0) Sodium Level 142 MMOL/L (136-145) Potassium Level 4.4 MMOL/L (3.5-5.1) Chloride Level 106 MMOL/L (98-107) Carbon Dioxide Level 25 MMOL/L (21-32) Anion Gap 11 mmol/L (5-15) Blood Urea Nitrogen 65 mg/dL (7-18) H Creatinine 1.3 MG/DL (0.55-1.30) Estimat Glomerular Filtration Rate 41.5 mL/min (>60) Glucose Level 106 MG/DL (74-106) Calcium Level 8.9 MG/DL (8.5-10.1) ERIKA DICKERSON Jun 08, 2017 12:38"
--- NOTE | 2017-06-08 14:12 | Pulmonology Progress Note ---
Assessment/Plan Assessment/Plan IMPRESSION respiratory failure possible UTI sepsis ARF/CRF hyperkalemia pericardial effusion possible renal cyst vs mass hypertension (now with normal BP off meds) chronic encephalopathy hypothyroidism diabetes possible cirrhosis atrial fib, paroxysmal hyperuricemia pain possible ascites pericardial fluid collection anasarca s/p bronchoscopy PLAN ventilator management- as is monitor acid base monitor PIP sliding scale and monitor sugars- sugars controlled monitor for residuals GT care GI/renal/ID/cards evaluation monitor clinically off antibiotics d/w sister at length- awaiting renal clearance; continue same for now prognosis guarded at this time sister updated medications/laboratory data/nursing notes reviewed in detail note reviewed and edited care discussed with RN and RT Subjective ROS Limited/Unobtainable: Yes Allergies: Coded Allergies: OLANZAPINE (Verified Allergy, Severe, RESP FAILURE, 11/25/13) VANCOMYCIN (Verified Allergy, Severe, 11/25/13) PIPERACILLIN (Verified Allergy, Intermediate, HIVES, 11/25/13) TAZOBACTAM (Verified Allergy, Intermediate, HIVES, 11/25/13) Subjective overnight events reviewed labs noted noted UO and nephro recommendations speciality care reviewed Objective Last 24 Hour Vital Signs Date Time Temp Pulse Resp B/P (MAP) Pulse Ox O2 Delivery O2 Flow Rate FiO2 06/08/17 13:25 74 06/08/17 13:08 74 16 28 06/08/17 12:00 97.6 75 18 152/94 100 Mechanical Ventilator 28 06/08/17 12:00 28 06/08/17 11:16 28 06/08/17 11:16 78 16 100 Mechanical Ventilator 06/08/17 11:08 75 16 100 Mechanical Ventilator 28 06/08/17 11:02 69 16 28 06/08/17 09:15 78 16 28 06/08/17 08:00 97.5 75 16 154/87 100 Mechanical Ventilator 28 06/08/17 08:00 28 06/08/17 07:39 72 06/08/17 07:24 28 06/08/17 07:24 77 16 100 Mechanical Ventilator 28 06/08/17 07:16 69 16 28 06/08/17 07:15 69 16 100 Mechanical Ventilator 28 06/08/17 04:47 70 16 28 06/08/17 04:00 28 06/08/17 04:00 72 06/08/17 03:59 98.0 74 17 144/87 100 Mechanical Ventilator 28 06/08/17 03:53 75 16 100 Mechanical Ventilator 28 06/08/17 03:03 28 06/08/17 02:59 75 16 100 Mechanical Ventilator 28 06/08/17 02:57 75 16 28 06/08/17 00:47 85 16 28 06/08/17 00:46 85 16 100 Mechanical Ventilator 28 06/08/17 00:05 17 100 Mechanical Ventilator 28 06/08/17 00:00 73 06/08/17 00:00 98.2 62 16 147/65 100 Mechanical Ventilator 28 06/08/17 00:00 28 06/07/17 23:48 77 16 100 Mechanical Ventilator 28 06/07/17 23:20 75 16 100 Mechanical Ventilator 28 06/07/17 23:04 77 16 28 06/07/17 21:10 75 16 28 06/07/17 20:05 16 100 Mechanical Ventilator 28 06/07/17 20:00 62 06/07/17 20:00 98.5 76 16 148/48 100 Mechanical Ventilator 28 06/07/17 19:19 63 16 99 Mechanical Ventilator 28 06/07/17 19:01 69 16 99 Mechanical Ventilator 28 06/07/17 18:58 69 18 28 06/07/17 17:29 66 18 28 06/07/17 16:00 97.8 66 18 168/83 99 Mechanical Ventilator 28 06/07/17 16:00 28 06/07/17 16:00 66 06/07/17 15:43 68 16 100 Mechanical Ventilator 28 06/07/17 15:31 28 06/07/17 15:22 68 16 100 Mechanical Ventilator 28 06/07/17 15:20 68 16 28 Objective WDWN female chronically ill NAD coarse breath sounds bilaterally without rhonchi or wheeze PIP reviewed [id number] without MRG NABS nontender no HSM; protuberant; GT- no CC noted edema has improved short neck unresponsive reviewed and edited Laboratory Tests 06/08/17 04:00: White Blood Count 8.2, Red Blood Count 2.97L, Hemoglobin 9.2L, Hematocrit 29.5L , Mean Corpuscular Volume 99, Mean Corpuscular Hemoglobin 31.0, Mean Corpuscular Hemoglobin Concent 31.2L, Red Cell Distribution Width 21.0H, Platelet Count 331, Mean Platelet Volume 7.5, Neutrophils (%) (Auto) 78.3H, Lymphocytes (%) (Auto) 13.0L, Monocytes (%) (Auto) 5.8, Eosinophils (%) (Auto) 2.1, Basophils (%) (Auto) 0.8, Sodium Level 142, Potassium Level 4.4, Chloride Level 106, Carbon Dioxide Level 25, Anion Gap 11, Blood Urea Nitrogen 65H, Creatinine 1.3, Estimat Glomerular Filtration Rate 41.5, Glucose Level 106, Calcium Level 8.9 Current Medications Medications (Trade) Dose Ordered Sig/Alex Route PRN Reason Start Time Stop Time Status Last Admin Dose Admin Acetaminophen (Tylenol) 650 mg Q6H PRN GT Mild Pain/Temp > 100.5 05/30/17 01:15 06/22/17 19:14 Albuterol Sulfate (Proventil) 2.5 mg Q4HRT HHN 06/07/17 23:30 06/12/17 23:29 06/08/17 11:07 Allopurinol (Zyloprim) 100 mg DAILY GT 06/05/17 09:00 07/05/17 08:59 06/08/17 08:56 Amiodarone HCl (Cordarone) 200 mg BID GT 06/01/17 09:00 06/26/17 20:59 06/08/17 08:56 Atenolol (Tenormin) 12.5 mg DAILY GT 05/30/17 09:00 06/24/17 10:59 06/08/17 08:57 Bisacodyl (Dulcolax) 5 mg DAILYPRN PRN RECTAL Constipation 05/29/17 20:30 06/22/17 20:29 Chlorhexidine Gluconate (Rubina-Hex 2%) 1 applic DAILY@1999 TOPIC 05/29/17 20:00 06/24/17 19:59 06/07/17 22:12 Dextrose (Dextrose 50%) STAT PRN IV Hypoglycemia 05/30/17 08:30 06/23/17 08:29 Epoetin Amadou (Procrit (for non ESRD use)) 7,500 units MON-WED-FRI SUBQ 06/04/17 21:00 07/04/17 20:59 06/06/17 21:36 Heparin Sodium (Porcine) (Heparin 5000 units/ml) 5,000 units EVERY 12 HOURS SUBQ 05/29/17 21:00 06/22/17 08:59 06/08/17 09:00 Insulin Aspart (NovoLOG) EVERY 6 HOURS SUBQ 05/30/17 00:00 06/23/17 11:29 06/08/17 11:35 Ipratropium [place] (Atrovent) 500 mcg Q4HRT HHN 06/07/17 23:30 06/12/17 23:29 06/08/17 11:07 Lansoprazole (Prevacid) 30 mg DAILY GT 05/31/17 09:00 06/30/17 08:59 06/08/17 08:57 Levothyroxine Sodium (Synthroid) 75 mcg ACBREAKFAST GT 05/30/17 06:30 06/21/17 06:29 06/08/17 06:18 Levothyroxine Sodium (Synthroid) 100 mcg ACBREAKFAST GT 05/30/17 06:30 06/21/17 06:29 06/08/17 06:18 Midodrine (Pro-A[place]) 10 mg TIDPRN PRN ORAL bp below 100 syst 06/04/17 13:00 07/04/17 12:59 Patient Own Medication (Patient's Own Med) 1 ea BID ORAL 05/30/17 09:00 06/28/17 17:59 06/08/17 08:57 Patient Own Medication (Patient's Own Med) 1 ea QID BOTH EYES 05/29/17 21:00 06/28/17 17:59 06/08/17 13:53 Patient Own Medication (Patient's Own Med) 1 ea QID BOTH EYES 05/29/17 21:00 06/22/17 20:59 06/08/17 13:51 ANTIONETTE RODRIGUEZ Jun 08, 2017 14:12
--- NOTE | 2017-06-08 14:29 | Nephrology Progress Note ---
Assessment/Plan Assessment 1) Chronic VDRF 2) GELA 3) S/P septic shock 4) Fluid overload/CHF probably due to chronic diastolic CHF Plan: Will Give Bumex 2 mg IV Q8 x3 again awaiting renal scan to determine GFR Subjective Subjective She is still on the vent, had good diuresis, creat is still 1.3,supposed to go for renal scan today Objective Objective Last 24 Hour Vital Signs Date Time Temp Pulse Resp B/P (MAP) Pulse Ox O2 Delivery O2 Flow Rate FiO2 06/08/17 13:25 74 06/08/17 13:08 74 16 28 06/08/17 12:00 97.6 75 18 152/94 100 Mechanical Ventilator 28 06/08/17 12:00 28 06/08/17 11:16 28 06/08/17 11:16 78 16 100 Mechanical Ventilator 28 06/08/17 11:08 75 16 100 Mechanical Ventilator 28 06/08/17 11:02 69 16 28 06/08/17 09:15 78 16 28 06/08/17 08:00 97.5 75 16 154/87 100 Mechanical Ventilator 28 06/08/17 08:00 28 06/08/17 07:39 72 06/08/17 07:24 28 06/08/17 07:24 77 16 100 Mechanical Ventilator 28 06/08/17 07:16 69 16 28 06/08/17 07:15 69 16 100 Mechanical Ventilator 28 06/08/17 04:47 70 16 28 06/08/17 04:00 28 06/08/17 04:00 72 06/08/17 03:59 98.0 74 17 144/87 100 Mechanical Ventilator 28 06/08/17 03:53 75 16 100 Mechanical Ventilator 28 06/08/17 03:03 28 06/08/17 02:59 75 16 100 Mechanical Ventilator 28 06/08/17 02:57 75 16 28 06/08/17 00:47 85 16 28 06/08/17 00:46 85 16 100 Mechanical Ventilator 28 06/08/17 00:05 17 100 Mechanical Ventilator 28 06/08/17 00:00 73 06/08/17 00:00 98.2 62 16 147/65 100 Mechanical Ventilator 28 06/08/17 00:00 28 06/07/17 23:48 77 16 100 Mechanical Ventilator 28 06/07/17 23:20 75 16 100 Mechanical Ventilator 28 06/07/17 23:04 77 16 28 06/07/17 21:10 75 16 28 06/07/17 20:05 16 100 Mechanical Ventilator 28 06/07/17 20:00 62 06/07/17 20:00 98.5 76 16 148/48 100 Mechanical Ventilator 28 06/07/17 19:19 63 16 99 Mechanical Ventilator 28 06/07/17 19:01 69 16 99 Mechanical Ventilator 28 06/07/17 18:58 69 18 28 06/07/17 17:29 66 18 28 06/07/17 16:00 97.8 66 18 168/83 99 Mechanical Ventilator 28 06/07/17 16:00 28 06/07/17 16:00 66 06/07/17 15:43 68 16 100 Mechanical Ventilator 06/07/17 15:31 28 06/07/17 15:22 68 16 100 Mechanical Ventilator 28 06/07/17 15:20 68 16 28 Laboratory Tests 06/08/17 04:00: White Blood Count 8.2, Red Blood Count 2.97L, Hemoglobin 9.2L, Hematocrit 29.5L , Mean Corpuscular Volume 99, Mean Corpuscular Hemoglobin 31.0, Mean Corpuscular Hemoglobin Concent 31.2L, Red Cell Distribution Width 21.0H, Platelet Count 331, Mean Platelet Volume 7.5, Neutrophils (%) (Auto) 78.3H, Lymphocytes (%) (Auto) 13.0L, Monocytes (%) (Auto) 5.8, Eosinophils (%) (Auto) 2.1, Basophils (%) (Auto) 0.8, Sodium Level 142, Potassium Level 4.4, Chloride Level 106, Carbon Dioxide Level 25, Anion Gap 11, Blood Urea Nitrogen 65H, Creatinine 1.3, Estimat Glomerular Filtration Rate 41.5, Glucose Level 106, Calcium Level 8.9 Height (Feet): 5 Height (Inches): 0.00 Weight (Pounds): 231 General Appearance: WD/WN, no apparent distress EENT: PERRL/EOMI, other - on the vent Neck: non-tender, normal alignment Cardiovascular: normal rate, regular rhythm, no JVD Respiratory/Chest: lungs clear Abdomen: normal bowel sounds, non tender Extremities: normal range of motion, non-tender, moderate edema Neurologic: alert BIBI URENA Jun 08, 2017 14:29
--- NOTE | 2017-06-08 15:35 | General Progress Note ---
Assessment/Plan Problem List: (1) Sepsis ICD Codes: A41.9 - Sepsis, unspecified organism SNOMED: 15673566 (2) Pneumonia ICD Codes: J18.9 - Pneumonia, unspecified organism SNOMED: 886785319 (3) Acute renal failure ICD Codes: N17.9 - Acute kidney failure, unspecified SNOMED: 03800033 (4) Pericardial effusion ICD Codes: I31.3 - Pericardial effusion (noninflammatory) SNOMED: 469965400 (5) Tracheostomy malfunction ICD Codes: J95.03 - Malfunction of tracheostomy stoma SNOMED: 86520461 (6) UTI (urinary tract infection) ICD Codes: N39.0 - Urinary tract infection, site not specified SNOMED: 04027650, 030337116 Qualifiers: Qualified Codes: N30.01 - Acute cystitis with hematuria Status: stable, progressing, tolerating diet Assessment/Plan diuresis per renal monitor labs and fluid status monitor off abx monitor wbc- improving vent support resp rx monitor renal fxn poor prognosis. d/w caregiver. transfuse as needed dnr prognosis remains poor Subjective ROS Limited/Unobtainable: No Constitutional: Reports: malaise, weakness HEENT: Reports: no symptoms Cardiovascular: Reports: edema Respiratory: Reports: shortness of breath Gastrointestinal/Abdominal: Reports: difficulty swallowing Genitourinary: Reports: no symptoms Neurologic/Psychiatric: Reports: pre-existing deficit Endocrine: Reports: no symptoms Hematologic/Lymphatic: Reports: no symptoms Allergies: Coded Allergies: OLANZAPINE (Verified Allergy, Severe, RESP FAILURE, 11/25/13) VANCOMYCIN (Verified Allergy, Severe, 11/25/13) PIPERACILLIN (Verified Allergy, Intermediate, HIVES, 11/25/13) TAZOBACTAM (Verified Allergy, Intermediate, HIVES, 11/25/13) All Systems: reviewed and negative except above Subjective no events. improved uop with bumex. still with edema but getting according to caretakers. no fevers. labs reviewed. on the vent. nonverbal. Objective Last 24 Hour Vital Signs Date Time Temp Pulse Resp B/P (MAP) Pulse Ox O2 Delivery O2 Flow Rate FiO2 06/08/17 13:25 74 06/08/17 13:08 74 16 28 06/08/17 12:00 97.6 75 18 152/94 100 Mechanical Ventilator 28 06/08/17 12:00 28 06/08/17 11:16 28 06/08/17 11:16 78 16 100 Mechanical Ventilator 28 06/08/17 11:08 75 16 100 Mechanical Ventilator 28 06/08/17 11:02 69 16 28 06/08/17 09:15 78 16 28 06/08/17 08:00 97.5 75 16 154/87 100 Mechanical Ventilator 28 06/08/17 08:00 28 06/08/17 07:39 72 06/08/17 07:24 28 06/08/17 07:24 77 16 100 Mechanical Ventilator 28 06/08/17 07:16 69 16 28 06/08/17 07:15 69 16 100 Mechanical Ventilator 28 06/08/17 04:47 70 16 28 06/08/17 04:00 28 06/08/17 04:00 72 06/08/17 03:59 98.0 74 17 144/87 100 Mechanical Ventilator 28 06/08/17 03:53 75 16 100 Mechanical Ventilator 28 06/08/17 03:03 28 06/08/17 02:59 75 16 100 Mechanical Ventilator 28 06/08/17 02:57 75 16 28 06/08/17 00:47 85 16 28 06/08/17 00:46 85 16 100 Mechanical Ventilator 28 06/08/17 00:05 17 100 Mechanical Ventilator 28 06/08/17 00:00 73 06/08/17 00:00 98.2 62 16 147/65 100 Mechanical Ventilator 28 06/08/17 00:00 28 06/07/17 23:48 77 16 100 Mechanical Ventilator 28 06/07/17 23:20 75 16 100 Mechanical Ventilator 28 06/07/17 23:04 77 16 28 06/07/17 21:10 75 16 28 06/07/17 20:05 16 100 Mechanical Ventilator 28 06/07/17 20:00 62 06/07/17 20:00 98.5 76 16 148/48 100 Mechanical Ventilator 28 06/07/17 19:19 63 16 99 Mechanical Ventilator 28 06/07/17 19:01 69 16 99 Mechanical Ventilator 28 06/07/17 18:58 69 18 28 06/07/17 17:29 66 18 28 06/07/17 16:00 97.8 66 18 168/83 99 Mechanical Ventilator 28 06/07/17 16:00 28 06/07/17 16:00 66 06/07/17 15:43 68 16 100 Mechanical Ventilator 28 Laboratory Tests 06/08/17 04:00: White Blood Count 8.2, Red Blood Count 2.97L, Hemoglobin 9.2L, Hematocrit 29.5L , Mean Corpuscular Volume 99, Mean Corpuscular Hemoglobin 31.0, Mean Corpuscular Hemoglobin Concent 31.2L, Red Cell Distribution Width 21.0H, Platelet Count 331, Mean Platelet Volume 7.5, Neutrophils (%) (Auto) 78.3H, Lymphocytes (%) (Auto) 13.0L, Monocytes (%) (Auto) 5.8, Eosinophils (%) (Auto) 2.1, Basophils (%) (Auto) 0.8, Sodium Level 142, Potassium Level 4.4, Chloride Level 106, Carbon Dioxide Level 25, Anion Gap 11, Blood Urea Nitrogen 65H, Creatinine 1.3, Estimat Glomerular Filtration Rate 41.5, Glucose Level 106, Calcium Level 8.9 Height (Feet): 5 Height (Inches): 0.00 Weight (Pounds): 231 Objective General Appearance: WD/WN, alert Neck: supple Cardiovascular: regular rhythm Respiratory/Chest: lungs clear Abdomen: hypoactive bowel sounds, distended Edema: severe edema Neurologic: unresponsive OCHOA BISWAS Jun 08, 2017 15:35
--- NOTE | 2017-06-08 17:03 | Diagnostic Imaging Report ---
Indication: Chronic renal failure Technique: IV administration 5 mCi 99m technetium DTPA. Serial images obtained over the posterior abdomen. GFR calculated using Hills method. Preinjection and postinjection syringe count measurements were made at 30cm from detector. Kidney ROIs were drawn using frames 31-34 which consists of 60 seconds of imaging starting at 2 minutes post injection. Renogram curves were also obtained Comparison: none Findings: Flow images demonstrate slow uptake in both kidneys. Static images demonstrate suboptimal visualization of the kidneys. Renal split function is 30.7% left, 69.3% right. Uptake and washout curves are normal. Calculated glomerular filtration rate is 56.5 mL/m, below the low normal value of 73 mL/m Impression: Calculi glomerular filtration rate 56.5%, which is of normal Renal split functions as described Normal washout curves
[2017-06-08] MEDS: Bumetanide 2.5mg/10ml Inj IVP SCH ×2 (17:11→23:01)
[2017-06-08] MEDS: Dyna-Hex 2% Top Sol 2oz TOPIC SCH (20:12)
[2017-06-08] MEDS: Epogen (for non ESRD use) SUBQ SCH (21:21)
--- NOTE | 2017-06-08 21:21 | General Progress Note ---
Assessment/Plan Assessment/Plan Assessment - Encephalopathy - Resp failure - Trach - dysphagia - PEG - abnormal LFT--> Improving - edema / anasarca - abd distention due to ascites - no SBP on tap - UTI/PNA - leukocytosis --> Improved - azotemia --> improved - pericardial effusion - marked thrombocytosis - resolved - poor Px Recommendations - continue TF - f/u hepatitis serologies --> Negative - diurese as feasible - continue abx - watch Cr - d/c planning Subjective Allergies: Coded Allergies: OLANZAPINE (Verified Allergy, Severe, RESP FAILURE, 11/25/13) VANCOMYCIN (Verified Allergy, Severe, 11/25/13) PIPERACILLIN (Verified Allergy, Intermediate, HIVES, 11/25/13) TAZOBACTAM (Verified Allergy, Intermediate, HIVES, 11/25/13) Subjective d/w RN tolerating TF abd distended without change Objective Last 24 Hour Vital Signs Date Time Temp Pulse Resp B/P (MAP) Pulse Ox O2 Delivery O2 Flow Rate FiO2 06/08/17 20:00 28 06/08/17 20:00 97.9 69 18 157/85 100 Mechanical Ventilator 06/08/17 19:30 67 16 100 Mechanical Ventilator 06/08/17 19:20 67 16 99 Mechanical Ventilator 28 06/08/17 19:20 28 06/08/17 18:47 70 16 28 06/08/17 18:00 66 16 28 06/08/17 17:15 68 18 152/81 100 Mechanical Ventilator 06/08/17 16:25 28 06/08/17 16:25 28 06/08/17 16:25 Mechanical Ventilator 06/08/17 16:01 71 06/08/17 16:00 97.6 68 16 162/100 100 Mechanical Ventilator 06/08/17 16:00 28 06/08/17 15:00 75 16 28 06/08/17 13:25 74 06/08/17 13:08 74 16 28 06/08/17 12:00 97.6 75 18 152/94 100 Mechanical Ventilator 28 06/08/17 12:00 28 06/08/17 11:16 28 06/08/17 11:16 78 16 100 Mechanical Ventilator 06/08/17 11:08 75 16 100 Mechanical Ventilator 06/08/17 11:02 69 16 28 06/08/17 09:15 78 16 28 06/08/17 08:00 97.5 75 16 154/87 100 Mechanical Ventilator 28 06/08/17 08:00 28 06/08/17 07:39 72 06/08/17 07:24 28 06/08/17 07:24 77 16 100 Mechanical Ventilator 28 06/08/17 07:16 69 16 28 06/08/17 07:15 69 16 100 Mechanical Ventilator 28 06/08/17 04:47 70 16 28 06/08/17 04:00 28 06/08/17 04:00 72 06/08/17 03:59 98.0 74 17 144/87 100 Mechanical Ventilator 28 06/08/17 03:53 75 16 100 Mechanical Ventilator 28 06/08/17 03:03 28 06/08/17 02:59 75 16 100 Mechanical Ventilator 28 06/08/17 02:57 75 16 28 06/08/17 00:47 85 16 28 06/08/17 00:46 85 16 100 Mechanical Ventilator 28 06/08/17 00:05 17 100 Mechanical Ventilator 28 06/08/17 00:00 73 06/08/17 00:00 98.2 62 16 147/65 100 Mechanical Ventilator 28 06/08/17 00:00 28 06/07/17 23:48 77 16 100 Mechanical Ventilator 28 06/07/17 23:20 75 16 100 Mechanical Ventilator 28 06/07/17 23:04 77 16 28 Intake and Output 06/08/17 06/09/17 19:00 07:00 Intake Total 1150 ml Output Total 600 ml Balance 550 ml Free Water 600 ml Tube Feeding 550 ml Output Urine Total 600 ml # Bowel Movements 1 Laboratory Tests 06/08/17 04:00: White Blood Count 8.2, Red Blood Count 2.97L, Hemoglobin 9.2L, Hematocrit 29.5L , Mean Corpuscular Volume 99, Mean Corpuscular Hemoglobin 31.0, Mean Corpuscular Hemoglobin Concent 31.2L, Red Cell Distribution Width 21.0H, Platelet Count 331, Mean Platelet Volume 7.5, Neutrophils (%) (Auto) 78.3H, Lymphocytes (%) (Auto) 13.0L, Monocytes (%) (Auto) 5.8, Eosinophils (%) (Auto) 2.1, Basophils (%) (Auto) 0.8, Sodium Level 142, Potassium Level 4.4, Chloride Level 106, Carbon Dioxide Level 25, Anion Gap 11, Blood Urea Nitrogen 65H, Creatinine 1.3, Estimat Glomerular Filtration Rate 41.5, Glucose Level 106, Calcium Level 8.9 Height (Feet): 5 Height (Inches): 0.00 Weight (Pounds): 231 Objective Obese WW NCAT supple Chest: coarse BS RRR obese, firm and distended abd, (+) GT (++) edema / anasarca OBS JILL WHITNEY Jun 08, 2017 21:20
--- NOTE | 2017-06-08 22:00 | Progress Note ---
DATE: 06/06/2017 CARDIOLOGY PROGRESS NOTE SUBJECTIVE: The patient was seen and examined. The case was discussed with her sister at bedside. The sister was reassured regarding the status of the pericardial fluid collection. Based on the repeat echocardiogram, there has been no progression, but rather regression. OBJECTIVE: VITAL SIGNS: Blood pressure 141/81, pulse 70, and respiratory rate 16. Monitor with sinus rhythm and arrhythmia. LUNGS: Bilateral breath sounds. Thin trach secretions. HEART: Regular rhythm and rate. Normal S1 and S2. ABDOMEN: Soft. EXTREMITIES: There is 1 to 2+ dependent edema. LABORATORY AND DIAGNOSTIC DATA: White count 10 and hemoglobin 9. Potassium 4.6, BUN 63, and creatinine 1.3. Albumin 2.7. IMPRESSION: 1. Respiratory failure. 2. Recovering sepsis with shock. 3. Resolving Healthcare acquired pneumonia. 4. Acute on chronic diastolic congestive heart failure. 5. Recovering acute renal failure. 6. Paroxysmal atrial fibrillation. 7. Moderate to severe protein-calorie malnutrition. PLAN: 1. Reassess midodrine. Maintain p. 2. N. only. Maintain amiodarone low loading dose. 3. Titrate beta-sarah. 4. Continue diuresis with close monitoring of volume status. 5. Cardiorenal parameters and trend natriuretic peptide assay. Ramo Toure M.D. DR: ISRAEL JOB#: [id number] CC:
[2017-06-09] MEDS: NovoLOG Insulin Flexpen SUBQ SCH ×5 (00:13→23:25)
[2017-06-09 00:15] VITALS: BP 149/82
--- NOTE | 2017-06-09 03:02 | Progress Note ---
DATE: 06/08/2017 CARDIOLOGY PROGRESS NOTE SUBJECTIVE: Status continues to improve slowly. The patient remains in sinus rhythm. Urine output is quite good. Edema recovering. Remains on ventilator support. OBJECTIVE: VITAL SIGNS: Blood pressure 152/94, heart rate 75, respirations 18, and afebrile. LUNGS: Good breath sounds. Few rhonchi. HEART: Regular rhythm and rate. Normal S1 and S2. ABDOMEN: Soft. EXTREMITIES: With 1+ edema. IMPRESSION: 1. Increasing blood pressure trend. 2. Paroxysmal atrial fibrillation. 3. Acute on chronic diastolic congestive heart failure. 4. Acute on chronic renal failure. 5. Pericardial fluid collection, recovering. PLAN: 1. Maintenance dose of amiodarone 200 mg daily. 2. Continue low-dose beta-sarah with titration. 3. Consider resuming terazosin at bedtime if blood pressure control remains elevated. 4. Continue ventilator support and antimicrobial therapy. No indication at this time for pericardiocentesis or further intervention regarding pericardial fluid and collection. The patient's sister made aware and recommendation for followup echocardiogram in six to eight weeks if clinically stable is recommended. Henrique Cha JOB#: [id number] CC:
--- NOTE | 2017-06-09 03:02 | Progress Note ---
DATE: 06/07/2017 CARDIOLOGY PROGRESS NOTE Late entry for 06/07/2017 SUBJECTIVE: The patient is without any distress. She remains on ventilator support. Urine output continues to be quite good in response to diuretics. OBJECTIVE: VITAL SIGNS: Blood pressure 168/83, pulse 66, and respirations 18. Afebrile. LUNGS: Diminished breath sounds with rhonchi. HEART: Regular rhythm and rate. Normal S1 and S2 with no murmur. EXTREMITIES: 1+ edema. LABORATORY DATA: White count 9, hemoglobin 9.3. Potassium 4.6, BUN 64, and creatinine 1.3. IMPRESSION: 1. Pericardial fluid collection, stable and with no signs of effusion or tamponade. 2. Acute on chronic renal failure, resolving. 3. Acute on chronic diastolic congestive heart failure, improving. 4. Paroxysmal atrial fibrillation, suppressed with amiodarone. 5. Chronic respiratory failure with tracheostomy, on ventilator support. 6. Healthcare-acquired pneumonia, recovering. 7. Hypertensive heart disease. PLAN: 1. Continue diuresis. Watching cardiorenal parameters, volume status and trending natriuretic peptide assay levels periodically. 2. Maintain amiodarone with slow loading dose. No need for midodrine at this time due to rising blood pressure. 3. Reassess need for further antihypertensive therapy. Ramo Toure M.D. DR: LUISITO JOB#: [id number] CC:
[2017-06-09] MEDS: Albuterol ud Inhalation HHN SCH ×6 (03:13→23:16)
[2017-06-09] MEDS: Ipratropium 0.02% Inh Soln 2.5ml UD HHN SCH ×6 (03:13→23:16)
[2017-06-09 04:00] VITALS: BP 130/72
[2017-06-09 05:25] LABS: BASOPHILS % (AUTO) 1.3 % (0.0-2.0); EOSINOPHILS % (AUTO) 3.4 % (0.0-3.0); LYMPHOCYTES % (AUTO) 16.1 % (20.0-45.0); MEAN CORPUSCULAR HEMOGLOBIN 32.1 PG (27.0-31.0); MEAN CORPUSCULAR HGB CONC 31.7 G/DL (32.0-36.0); MEAN CORPUSCULAR VOLUME 101 FL (80-99); MEAN PLATELET VOLUME 7.7 FL (6.5-10.1); MONOCYTES % (AUTO) 4.6 % (1.0-10.0); NEUTROPHILS % (AUTO) 74.5 % (45.0-75.0); PLATELET COUNT 356 K/UL (150-450); RED BLOOD COUNT 3.13 M/UL (4.20-5.40); RED CELL DISTRIBUTION WIDTH 20.8 % (11.6-14.8); WHITE BLOOD COUNT 7.4 K/UL (4.8-10.8)
[2017-06-09 05:45] LABS: ALANINE AMINOTRANSFERASE 20 U/L (12-78); ALBUMIN/GLOBULIN RATIO 0.5 (1.0-2.7); ANION GAP 10 mmol/L (5-15); ASPARTATE AMINO TRANSFERASE 13 U/L (15-37); CALCIUM 8.8 MG/DL (8.5-10.1); CARBON DIOXIDE 26 MMOL/L (21-32); CHLORIDE 104 MMOL/L (98-107); CREATININE 1.2 MG/DL (0.55-1.30); GLOMERULAR FILTRATION RATE 45.5 mL/min (>60); POTASSIUM 4.3 MMOL/L (3.5-5.1); SODIUM 140 MMOL/L (136-145); TOTAL PROTEIN 7.1 G/DL (6.4-8.2)
[2017-06-09] MEDS: Bumetanide 2.5mg/10ml Inj IVP SCH (06:37)
[2017-06-09 08:00] VITALS: BP 156/93
[2017-06-09] MEDS: SYSTANE ULTRA BOTH EYES SCH ×4 (09:26→21:38)
[2017-06-09] MEDS: [UNRECOGNIZED DRUG - OTHER] BOTH EYES SCH ×4 (09:26→20:09)
[2017-06-09] MEDS: [UNRECOGNIZED DRUG - OTHER] ORAL SCH ×2 (09:26→18:32)
[2017-06-09] MEDS: Amiodarone 200mg tab GT SCH (09:27)
[2017-06-09] MEDS: Atenolol 12.5mg GT SCH (09:27)
[2017-06-09] MEDS: Heparin 5000 units/ml inj SUBQ SCH ×2 (09:28→20:10)
[2017-06-09] MEDS: Allopurinol 100mg Tab GT SCH (09:28)
--- NOTE | 2017-06-09 09:47 | General Progress Note ---
Assessment/Plan Problem List: (1) Sepsis ICD Codes: A41.9 - Sepsis, unspecified organism SNOMED: 39401752 (2) Pneumonia ICD Codes: J18.9 - Pneumonia, unspecified organism SNOMED: 285187910 (3) Acute renal failure ICD Codes: N17.9 - Acute kidney failure, unspecified SNOMED: 38125631 (4) Pericardial effusion ICD Codes: I31.3 - Pericardial effusion (noninflammatory) SNOMED: 889821248 (5) Tracheostomy malfunction ICD Codes: J95.03 - Malfunction of tracheostomy stoma SNOMED: 61922850 (6) UTI (urinary tract infection) ICD Codes: N39.0 - Urinary tract infection, site not specified SNOMED: 94077412, 158143045 Qualifiers: Qualified Codes: N30.01 - Acute cystitis with hematuria Status: stable, progressing Assessment/Plan check cxr diuresis per renal monitor labs and fluid status monitor off abx monitor wbc- improving vent support resp rx monitor renal fxn poor prognosis. d/w caregiver. transfuse as needed dnr prognosis remains poor Subjective ROS Limited/Unobtainable: No Constitutional: Reports: malaise, weakness HEENT: Reports: no symptoms Cardiovascular: Reports: edema Respiratory: Reports: shortness of breath, sputum Gastrointestinal/Abdominal: Reports: difficulty swallowing Genitourinary: Reports: no symptoms Neurologic/Psychiatric: Reports: pre-existing deficit Endocrine: Reports: no symptoms Hematologic/Lymphatic: Reports: anemia Allergies: Coded Allergies: OLANZAPINE (Verified Allergy, Severe, RESP FAILURE, 11/25/13) VANCOMYCIN (Verified Allergy, Severe, 11/25/13) PIPERACILLIN (Verified Allergy, Intermediate, HIVES, 11/25/13) TAZOBACTAM (Verified Allergy, Intermediate, HIVES, 11/25/13) All Systems: reviewed and negative except above Subjective had episode of desaturation. mixing machine tender removed vent and manually bagged pt without nurses assistance. good uop with bumex. still with edema but getting according to caretakers. no fevers. labs reviewed. on the vent. nonverbal. Objective Last 24 Hour Vital Signs Date Time Temp Pulse Resp B/P (MAP) Pulse Ox O2 Delivery O2 Flow Rate FiO2 06/09/17 09:21 69 16 28 06/09/17 08:00 98.0 74 16 156/93 100 06/09/17 08:00 28 06/09/17 08:00 70 16 100 Mechanical Ventilator 28 06/09/17 06:52 68 16 100 Mechanical Ventilator 28 06/09/17 06:43 68 16 28 06/09/17 05:04 72 16 28 06/09/17 04:00 28 06/09/17 04:00 98.0 74 18 130/72 100 Trach Collar 28 72 06/09/17 04:00 80 06/09/17 03:12 75 16 100 Mechanical Ventilator 28 06/09/17 03:10 69 16 28 06/09/17 03:05 28 06/09/17 03:05 71 16 100 Mechanical Ventilator 28 06/09/17 01:00 68 16 28 06/09/17 00:15 98.3 71 18 149/82 99 Trach Collar 72 06/09/17 00:00 28 06/09/17 00:00 70 06/08/17 23:35 68 16 100 Mechanical Ventilator 28 06/08/17 23:24 28 06/08/17 23:24 68 16 100 Mechanical Ventilator 28 06/08/17 23:16 68 16 28 06/08/17 21:14 69 16 28 06/08/17 20:00 28 06/08/17 20:00 72 06/08/17 20:00 97.9 69 18 157/85 100 Mechanical Ventilator 28 06/08/17 19:30 67 16 100 Mechanical Ventilator 28 06/08/17 19:20 67 16 99 Mechanical Ventilator 28 06/08/17 19:20 28 06/08/17 18:47 70 16 28 06/08/17 18:00 66 16 28 06/08/17 17:15 68 18 152/81 100 Mechanical Ventilator 28 06/08/17 16:25 28 06/08/17 16:25 28 06/08/17 16:25 Mechanical Ventilator 28 06/08/17 16:01 71 06/08/17 16:00 97.6 68 16 162/100 100 Mechanical Ventilator 28 06/08/17 16:00 28 06/08/17 15:00 75 16 28 06/08/17 13:25 74 06/08/17 13:08 74 16 28 06/08/17 12:00 97.6 75 18 152/94 100 Mechanical Ventilator 28 06/08/17 12:00 28 06/08/17 11:16 28 06/08/17 11:16 78 16 100 Mechanical Ventilator 28 06/08/17 11:08 75 16 100 Mechanical Ventilator 28 06/08/17 11:02 69 16 28 Laboratory Tests 06/09/17 03:30: White Blood Count 7.4, Red Blood Count 3.13L, Hemoglobin 10.1L, Hematocrit 31.7L , Mean Corpuscular Volume 101H, Mean Corpuscular Hemoglobin 32.1H, Mean Corpuscular Hemoglobin Concent 31.7L, Red Cell Distribution Width 20.8H, Platelet Count 356, Mean Platelet Volume 7.7, Neutrophils (%) (Auto) 74.5, Lymphocytes (%) (Auto) 16.1L, Monocytes (%) (Auto) 4.6, Eosinophils (%) (Auto) 3.4H, Basophils (%) (Auto) 1.3, Sodium Level 140, Potassium Level 4.3, Chloride Level 104, Carbon Dioxide Level 26, Anion Gap 10, Blood Urea Nitrogen 66H, Creatinine 1.2, Estimat Glomerular Filtration Rate 45.5, Glucose Level 122H, Calcium Level 8.8, Total Bilirubin 0.4, Aspartate Amino Transf (AST/SGOT) 13L, Alanine Aminotransferase (ALT/SGPT) 20, Alkaline Phosphatase 145H, Pro-B-Type Natriuretic Peptide 4287H, Total Protein 7.1, Albumin 2.4L, Globulin 4.7, Albumin/Globulin Ratio 0.5L Height (Feet): 5 Height (Inches): 0.00 Weight (Pounds): 230 Objective General Appearance: WD/WN, alert Neck: supple Cardiovascular: regular rhythm Respiratory/Chest: lungs clear Abdomen: hypoactive bowel sounds, distended Edema: severe edema Neurologic: unresponsive OCHOA BISWAS Jun 09, 2017 09:47
--- NOTE | 2017-06-09 10:38 | Infectious Diseases Prog Note ---
"Assessment/Plan Assessment/Plan antibiotics : none A 1. klebsiella UTI s/p rx 2. leucocytosis resolved 3. respiratory failure 4. DM 5. HTN 6. anoxic brain injury 7. pericardial effusion 8. serratia | pseudomonas pneumonia s/p rx P 1. observe off antibiotics Subjective ROS Limited/Unobtainable: Yes Allergies: Coded Allergies: OLANZAPINE (Verified Allergy, Severe, RESP FAILURE, 11/25/13) VANCOMYCIN (Verified Allergy, Severe, 11/25/13) PIPERACILLIN (Verified Allergy, Intermediate, HIVES, 11/25/13) TAZOBACTAM (Verified Allergy, Intermediate, HIVES, 11/25/13) Objective Vital Signs Last 24 Hour Vital Signs Date Time Temp Pulse Resp B/P (MAP) Pulse Ox O2 Delivery O2 Flow Rate FiO2 06/09/17 09:21 69 16 28 06/09/17 08:00 98.0 74 16 156/93 100 06/09/17 08:00 28 06/09/17 08:00 70 16 100 Mechanical Ventilator 28 06/09/17 06:52 68 16 100 Mechanical Ventilator 28 06/09/17 06:43 68 16 28 06/09/17 05:04 72 16 28 06/09/17 04:00 28 06/09/17 04:00 98.0 74 18 130/72 100 Trach Collar 28 72 06/09/17 04:00 80 06/09/17 03:12 75 16 100 Mechanical Ventilator 28 06/09/17 03:10 69 16 28 06/09/17 03:05 28 06/09/17 03:05 71 16 100 Mechanical Ventilator 28 06/09/17 01:00 68 16 28 06/09/17 00:15 98.3 71 18 149/82 99 Trach Collar 72 06/09/17 00:00 28 06/09/17 00:00 70 06/08/17 23:35 68 16 100 Mechanical Ventilator 28 06/08/17 23:24 28 06/08/17 23:24 68 16 100 Mechanical Ventilator 28 06/08/17 23:16 68 16 28 06/08/17 21:14 69 16 28 06/08/17 20:00 28 06/08/17 20:00 72 06/08/17 20:00 97.9 69 18 157/85 100 Mechanical Ventilator 06/08/17 19:30 67 16 100 Mechanical Ventilator 28 06/08/17 19:20 67 16 99 Mechanical Ventilator 28 06/08/17 19:20 28 06/08/17 18:47 70 16 28 06/08/17 18:00 66 16 28 06/08/17 17:15 68 18 152/81 100 Mechanical Ventilator 28 06/08/17 16:25 28 06/08/17 16:25 28 06/08/17 16:25 Mechanical Ventilator 28 06/08/17 16:01 71 06/08/17 16:00 97.6 68 16 162/100 100 Mechanical Ventilator 28 06/08/17 16:00 28 06/08/17 15:00 75 16 28 06/08/17 13:25 74 06/08/17 13:08 74 16 28 06/08/17 12:00 97.6 75 18 152/94 100 Mechanical Ventilator 28 06/08/17 12:00 28 06/08/17 11:16 28 06/08/17 11:16 78 16 100 Mechanical Ventilator 06/08/17 11:08 75 16 100 Mechanical Ventilator 28 06/08/17 11:02 69 16 28 Height (Feet): 5 Height (Inches): 0.00 Weight (Pounds): 230 HEENT: status post trach Respiratory/Chest: lungs clear Cardiovascular: normal rate, regular rhythm, no gallop/murmur Abdomen: soft, non tender, other - GT Extremities: other - + edema, right arm PICC Laboratory Tests Test 06/09/17 03:30 White Blood Count 7.4 K/UL (4.8-10.8) Red Blood Count 3.13 M/UL (4.20-5.40) L Hemoglobin 10.1 G/DL (12.0-16.0) L Hematocrit 31.7 % (37.0-47.0) L Mean Corpuscular Volume 101 FL (80-99) H Mean Corpuscular Hemoglobin 32.1 PG (27.0-31.0) H Mean Corpuscular Hemoglobin Concent 31.7 G/DL (32.0-36.0) L Red Cell Distribution Width 20.8 % (11.6-14.8) H Platelet Count 356 K/UL (150-450) Mean Platelet Volume 7.7 FL (6.5-10.1) Neutrophils (%) (Auto) 74.5 % (45.0-75.0) Lymphocytes (%) (Auto) 16.1 % (20.0-45.0) L Monocytes (%) (Auto) 4.6 % (1.0-10.0) Eosinophils (%) (Auto) 3.4 % (0.0-3.0) H Basophils (%) (Auto) 1.3 % (0.0-2.0) Sodium Level 140 MMOL/L (136-145) Potassium Level 4.3 MMOL/L (3.5-5.1) Chloride Level 104 MMOL/L (98-107) Carbon Dioxide Level 26 MMOL/L (21-32) Anion Gap 10 mmol/L (5-15) Blood Urea Nitrogen 66 mg/dL (7-18) H Creatinine 1.2 MG/DL (0.55-1.30) Estimat Glomerular Filtration Rate 45.5 mL/min (>60) Glucose Level 122 MG/DL (74-106) H Calcium Level 8.8 MG/DL (8.5-10.1) Total Bilirubin 0.4 MG/DL (0.2-1.0) Aspartate Amino Transf (AST/SGOT) 13 U/L (15-37) L Alanine Aminotransferase (ALT/SGPT) 20 U/L (12-78) Alkaline Phosphatase 145 U/L (46-116) H Pro-B-Type Natriuretic Peptide 4287 pg/mL (0-125) H Total Protein 7.1 G/DL (6.4-8.2) Albumin 2.4 G/DL (3.4-5.0) L Globulin 4.7 g/dL Albumin/Globulin Ratio 0.5 (1.0-2.7) L ERIKA DICKESRON Jun 09, 2017 10:38"
[2017-06-09 12:00] VITALS: BP 149/83
--- NOTE | 2017-06-09 12:11 | Nephrology Progress Note ---
Assessment/Plan Assessment 1) Chronic VDRF 2) GELA 3) S/P septic shock 4) Fluid overload/CHF probably due to chronic diastolic CHF 5) CKD III Plan: Will Give Bumex 2 mg IV Q8 x3 again Ok to be discharged from my standpoint No need for dialysis Subjective Subjective She is still on the vent, had good diuresis, creat is still 1.2,Renal scan shows a GFR of 56.5% Objective Objective Last 24 Hour Vital Signs Date Time Temp Pulse Resp B/P (MAP) Pulse Ox O2 Delivery O2 Flow Rate FiO2 06/09/17 11:40 70 16 100 Mechanical Ventilator 28 06/09/17 11:24 28 06/09/17 11:19 71 16 28 06/09/17 11:08 74 16 100 Mechanical Ventilator 28 06/09/17 09:21 69 16 28 06/09/17 08:00 28 06/09/17 08:00 98.0 74 16 156/93 100 06/09/17 08:00 28 06/09/17 08:00 70 16 100 Mechanical Ventilator 28 06/09/17 06:52 68 16 100 Mechanical Ventilator 28 06/09/17 06:43 68 16 28 06/09/17 05:04 72 16 28 06/09/17 04:00 28 06/09/17 04:00 98.0 74 18 130/72 100 Trach Collar 28 72 06/09/17 04:00 80 06/09/17 03:12 75 16 100 Mechanical Ventilator 28 06/09/17 03:10 69 16 28 06/09/17 03:05 28 06/09/17 03:05 71 16 100 Mechanical Ventilator 28 06/09/17 01:00 68 16 28 06/09/17 00:15 98.3 71 18 149/82 99 Trach Collar 72 06/09/17 00:00 28 06/09/17 00:00 70 06/08/17 23:35 68 16 100 Mechanical Ventilator 28 06/08/17 23:24 28 06/08/17 23:24 68 16 100 Mechanical Ventilator 28 06/08/17 23:16 68 16 28 06/08/17 21:14 69 16 28 06/08/17 20:00 28 06/08/17 20:00 72 06/08/17 20:00 97.9 69 18 157/85 100 Mechanical Ventilator 28 06/08/17 19:30 67 16 100 Mechanical Ventilator 28 06/08/17 19:20 67 16 99 Mechanical Ventilator 28 06/08/17 19:20 28 06/08/17 18:47 70 16 28 06/08/17 18:00 66 16 28 06/08/17 17:15 68 18 152/81 100 Mechanical Ventilator 28 06/08/17 16:25 28 06/08/17 16:25 28 06/08/17 16:25 Mechanical Ventilator 28 06/08/17 16:01 71 06/08/17 16:00 97.6 68 16 162/100 100 Mechanical Ventilator 28 06/08/17 16:00 28 06/08/17 15:00 75 16 28 06/08/17 13:25 74 06/08/17 13:08 74 16 28 Laboratory Tests 06/09/17 03:30: White Blood Count 7.4, Red Blood Count 3.13L, Hemoglobin 10.1L, Hematocrit 31.7L , Mean Corpuscular Volume 101H, Mean Corpuscular Hemoglobin 32.1H, Mean Corpuscular Hemoglobin Concent 31.7L, Red Cell Distribution Width 20.8H, Platelet Count 356, Mean Platelet Volume 7.7, Neutrophils (%) (Auto) 74.5, Lymphocytes (%) (Auto) 16.1L, Monocytes (%) (Auto) 4.6, Eosinophils (%) (Auto) 3.4H, Basophils (%) (Auto) 1.3, Sodium Level 140, Potassium Level 4.3, Chloride Level 104, Carbon Dioxide Level 26, Anion Gap 10, Blood Urea Nitrogen 66H, Creatinine 1.2, Estimat Glomerular Filtration Rate 45.5, Glucose Level 122H, Calcium Level 8.8, Total Bilirubin 0.4, Aspartate Amino Transf (AST/SGOT) 13L, Alanine Aminotransferase (ALT/SGPT) 20, Alkaline Phosphatase 145H, Pro-B-Type Natriuretic Peptide 4287H, Total Protein 7.1, Albumin 2.4L, Globulin 4.7, Albumin/Globulin Ratio 0.5L Height (Feet): 5 Height (Inches): 0.00 Weight (Pounds): 230 General Appearance: WD/WN, no apparent distress, other EENT: PERRL/EOMI, normal ENT inspection Neck: non-tender, normal alignment Cardiovascular: normal rate, regular rhythm Respiratory/Chest: lungs clear, normal breath sounds Abdomen: normal bowel sounds, non tender, soft Extremities: moderate edema 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
--- NOTE | 2017-06-09 12:25 | Diagnostic Imaging Report ---
Indication: Dyspnea Technique: XRAY Chest 1v Comparison: 05/30/2017 Findings: Stable cardiomegaly. Tracheostomy tube central line and PICC line unchanged in position. There is persistent retrocardiac atelectasis/consolidation. Right lung is essentially clear. There is mild pulmonary vascular congestion. There is no pneumothorax. No acute osseous abnormality seen. Gastrostomy tube visualized. Impression: Persistent cardiomegaly and retrocardiac atelectasis/consolidation.
[2017-06-09] MEDS ORDERED: Bumetanide 2.5mg/10ml Inj IVP SCH (14:00)
[2017-06-09] MEDS: BUMETANIDE 1MG/4ML VIAL IV SCH ×2 (14:51→23:22)
[2017-06-09 16:00] VITALS: BP 158/82
--- NOTE | 2017-06-09 16:04 | General Progress Note ---
Assessment/Plan Assessment/Plan Assessment - Encephalopathy - Resp failure - Trach - dysphagia - PEG - abnormal LFT--> Improving - edema / anasarca - abd distention due to ascites - no SBP on tap - UTI/PNA - leukocytosis --> Improved - azotemia --> improved - pericardial effusion - marked thrombocytosis - resolved - poor Px Recommendations - continue TF - f/u hepatitis serologies --> Negative - diurese as feasible - continue abx - watch Cr - d/c planning Subjective Allergies: Coded Allergies: OLANZAPINE (Verified Allergy, Severe, RESP FAILURE, 11/25/13) VANCOMYCIN (Verified Allergy, Severe, 11/25/13) PIPERACILLIN (Verified Allergy, Intermediate, HIVES, 11/25/13) TAZOBACTAM (Verified Allergy, Intermediate, HIVES, 11/25/13) Subjective d/w RN tolerating TF abd distended without change Objective Last 24 Hour Vital Signs Date Time Temp Pulse Resp B/P (MAP) Pulse Ox O2 Delivery O2 Flow Rate FiO2 06/09/17 15:14 28 06/09/17 15:14 70 16 100 Mechanical Ventilator 28 06/09/17 14:54 72 16 28 06/09/17 14:54 72 16 100 Mechanical Ventilator 28 06/09/17 12:57 70 16 28 06/09/17 12:00 74 06/09/17 12:00 28 06/09/17 12:00 97.9 75 16 149/83 100 Mechanical Ventilator 06/09/17 11:40 70 16 100 Mechanical Ventilator 06/09/17 11:24 28 06/09/17 11:19 71 16 28 06/09/17 11:08 74 16 100 Mechanical Ventilator 06/09/17 09:21 69 16 28 06/09/17 08:00 75 06/09/17 08:00 28 06/09/17 08:00 98.0 74 16 156/93 100 06/09/17 08:00 28 06/09/17 08:00 70 16 100 Mechanical Ventilator 06/09/17 06:52 68 16 100 Mechanical Ventilator 28 06/09/17 06:43 68 16 28 06/09/17 05:04 72 16 28 06/09/17 04:00 28 06/09/17 04:00 98.0 74 18 130/72 100 Trach Collar 28 72 06/09/17 04:00 80 12/16/17 03:12 75 16 100 Mechanical Ventilator 28 06/09/17 03:10 69 16 28 06/09/17 03:05 28 06/09/17 03:05 71 16 100 Mechanical Ventilator 28 06/09/17 01:00 68 16 28 06/09/17 00:15 98.3 71 18 149/82 99 Trach Collar 72 06/09/17 00:00 28 06/09/17 00:00 70 06/08/17 23:35 68 16 100 Mechanical Ventilator 28 06/08/17 23:24 28 06/08/17 23:24 68 16 100 Mechanical Ventilator 28 06/08/17 23:16 68 16 28 06/08/17 21:14 69 16 28 06/08/17 20:00 28 06/08/17 20:00 72 06/08/17 20:00 97.9 69 18 157/85 100 Mechanical Ventilator 28 06/08/17 19:30 67 16 100 Mechanical Ventilator 28 06/08/17 19:20 67 16 99 Mechanical Ventilator 28 06/08/17 19:20 28 06/08/17 18:47 70 16 28 06/08/17 18:00 66 16 28 06/08/17 17:15 68 18 152/81 100 Mechanical Ventilator 28 06/08/17 16:25 28 06/08/17 16:25 28 06/08/17 16:25 Mechanical Ventilator 28 Intake and Output 06/09/17 06/10/17 19:00 07:00 Intake Total 325 ml Balance 325 ml Free Water 100 ml Tube Feeding 225 ml Laboratory Tests 06/09/17 03:30: White Blood Count 7.4, Red Blood Count 3.13L, Hemoglobin 10.1L, Hematocrit 31.7L , Mean Corpuscular Volume 101H, Mean Corpuscular Hemoglobin 32.1H, Mean Corpuscular Hemoglobin Concent 31.7L, Red Cell Distribution Width 20.8H, Platelet Count 356, Mean Platelet Volume 7.7, Neutrophils (%) (Auto) 74.5, Lymphocytes (%) (Auto) 16.1L, Monocytes (%) (Auto) 4.6, Eosinophils (%) (Auto) 3.4H, Basophils (%) (Auto) 1.3, Sodium Level 140, Potassium Level 4.3, Chloride Level 104, Carbon Dioxide Level 26, Anion Gap 10, Blood Urea Nitrogen 66H, Creatinine 1.2, Estimat Glomerular Filtration Rate 45.5, Glucose Level 122H, Calcium Level 8.8, Total Bilirubin 0.4, Aspartate Amino Transf (AST/SGOT) 13L, Alanine Aminotransferase (ALT/SGPT) 20, Alkaline Phosphatase 145H, Pro-B-Type Natriuretic Peptide 4287H, Total Protein 7.1, Albumin 2.4L, Globulin 4.7, Albumin/Globulin Ratio 0.5L Height (Feet): 5 Height (Inches): 0.00 Weight (Pounds): 230 Objective Obese WW NCAT supple Chest: coarse BS RRR obese, firm and distended abd, (+) GT (++) edema / anasarca OBS JILL WHITNEY Jun 09, 2017 16:04
[2017-06-09 20:00] VITALS: BP 158/92
[2017-06-09] MEDS: Dyna-Hex 2% Top Sol 2oz TOPIC SCH (20:08)
[2017-06-10] VITALS: BP 155/92
[2017-06-10] MEDS: Ipratropium 0.02% Inh Soln 2.5ml UD HHN SCH ×6 (03:04→23:15)
[2017-06-10] MEDS: Albuterol ud Inhalation HHN SCH ×6 (03:04→23:11)
[2017-06-10 04:00] VITALS: BP 157/88
[2017-06-10] MEDS: NovoLOG Insulin Flexpen SUBQ SCH ×4 (05:46→23:39)
[2017-06-10 05:55] LABS: BASOPHILS % (AUTO) 1.5 % (0.0-2.0); EOSINOPHILS % (AUTO) 3.2 % (0.0-3.0); LYMPHOCYTES % (AUTO) 19.4 % (20.0-45.0); MEAN CORPUSCULAR HEMOGLOBIN 31.5 PG (27.0-31.0); MEAN CORPUSCULAR HGB CONC 31.5 G/DL (32.0-36.0); MEAN CORPUSCULAR VOLUME 100 FL (80-99); MEAN PLATELET VOLUME 7.8 FL (6.5-10.1); MONOCYTES % (AUTO) 3.5 % (1.0-10.0); NEUTROPHILS % (AUTO) 72.5 % (45.0-75.0); PLATELET COUNT 342 K/UL (150-450); RED BLOOD COUNT 2.92 M/UL (4.20-5.40); RED CELL DISTRIBUTION WIDTH 20.2 % (11.6-14.8); WHITE BLOOD COUNT 7.3 K/UL (4.8-10.8)
[2017-06-10 06:25] LABS: ALANINE AMINOTRANSFERASE 17 U/L (12-78); ALBUMIN/GLOBULIN RATIO 0.5 (1.0-2.7); ANION GAP 11 mmol/L (5-15); ASPARTATE AMINO TRANSFERASE 12 U/L (15-37); CALCIUM 8.8 MG/DL (8.5-10.1); CARBON DIOXIDE 25 MMOL/L (21-32); CHLORIDE 103 MMOL/L (98-107); CREATININE 1.2 MG/DL (0.55-1.30); GLOMERULAR FILTRATION RATE 45.5 mL/min (>60); POTASSIUM 3.8 MMOL/L (3.5-5.1); SODIUM 139 MMOL/L (136-145); TOTAL PROTEIN 6.8 G/DL (6.4-8.2)
[2017-06-10 08:00] VITALS: BP 139/80
[2017-06-10] MEDS: [UNRECOGNIZED DRUG - OTHER] ORAL SCH ×2 (08:24→17:28)
[2017-06-10] MEDS: [UNRECOGNIZED DRUG - OTHER] BOTH EYES SCH ×4 (08:24→20:58)
[2017-06-10] MEDS: BUMETANIDE 1MG/4ML VIAL IV SCH ×5 (08:25→23:26)
[2017-06-10] MEDS: Allopurinol 100mg Tab GT SCH (08:26)
[2017-06-10] MEDS: Amiodarone 200mg tab GT SCH (08:26)
[2017-06-10] MEDS: Atenolol 12.5mg GT SCH (08:26)
[2017-06-10] MEDS: Heparin 5000 units/ml inj SUBQ SCH ×2 (08:29→21:00)
[2017-06-10] MEDS: SYSTANE ULTRA BOTH EYES SCH ×4 (08:30→20:58)
--- NOTE | 2017-06-10 09:03 | General Progress Note ---
Assessment/Plan Problem List: (1) Sepsis ICD Codes: A41.9 - Sepsis, unspecified organism SNOMED: 76419291 (2) Pneumonia ICD Codes: J18.9 - Pneumonia, unspecified organism SNOMED: 223771528 (3) Acute renal failure ICD Codes: N17.9 - Acute kidney failure, unspecified SNOMED: 43558728 (4) Pericardial effusion ICD Codes: I31.3 - Pericardial effusion (noninflammatory) SNOMED: 436660797 (5) Tracheostomy malfunction ICD Codes: J95.03 - Malfunction of tracheostomy stoma SNOMED: 75767844 (6) UTI (urinary tract infection) ICD Codes: N39.0 - Urinary tract infection, site not specified SNOMED: 97877428, 021037907 Qualifiers: Qualified Codes: N30.01 - Acute cystitis with hematuria Status: stable, progressing Assessment/Plan diuresis per renal monitor labs and fluid status monitor off abx monitor wbc- improving vent support resp rx monitor renal fxn poor prognosis. d/w caregiver. transfuse as needed dnr prognosis remains poor Subjective ROS Limited/Unobtainable: Yes Constitutional: Reports: malaise, weakness HEENT: Reports: no symptoms Cardiovascular: Reports: edema Respiratory: Reports: cough, shortness of breath, sputum Gastrointestinal/Abdominal: Reports: difficulty swallowing Genitourinary: Reports: no symptoms Neurologic/Psychiatric: Reports: pre-existing deficit Endocrine: Reports: no symptoms Hematologic/Lymphatic: Reports: anemia Allergies: Coded Allergies: OLANZAPINE (Verified Allergy, Severe, RESP FAILURE, 11/25/13) VANCOMYCIN (Verified Allergy, Severe, 11/25/13) PIPERACILLIN (Verified Allergy, Intermediate, HIVES, 11/25/13) TAZOBACTAM (Verified Allergy, Intermediate, HIVES, 11/25/13) All Systems: reviewed and negative except above Subjective no overnight events. diuresing well with bumex. on the vent. poorly responsive. tolerating feeds. labs reviewed. cxr noted Objective Last 24 Hour Vital Signs Date Time Temp Pulse Resp B/P (MAP) Pulse Ox O2 Delivery O2 Flow Rate FiO2 06/10/17 08:57 76 16 28 06/10/17 08:00 74 06/10/17 08:00 28 06/10/17 06:56 76 16 99 Mechanical Ventilator 28 06/10/17 06:48 75 16 99 Mechanical Ventilator 28 06/10/17 06:48 75 16 28 06/10/17 06:48 28 06/10/17 05:18 77 16 28 06/10/17 04:00 97.9 73 16 157/88 100 Mechanical Ventilator 28 06/10/17 04:00 28 06/10/17 03:37 69 06/10/17 03:25 72 16 100 Mechanical Ventilator 28 06/10/17 03:08 28 06/10/17 03:07 69 16 100 Mechanical Ventilator 28 06/10/17 03:05 67 16 28 06/10/17 01:53 69 16 28 06/10/17 00:00 98.0 78 18 155/92 100 Mechanical Ventilator 28 06/09/17 23:35 75 06/09/17 23:16 28 06/09/17 23:16 73 16 28 06/09/17 23:16 77 17 100 Venturi Mask 28 06/09/17 23:16 73 16 100 Mechanical Ventilator 28 06/09/17 21:24 72 16 28 06/09/17 20:00 97.9 77 16 158/92 100 Mechanical Ventilator 28 06/09/17 20:00 28 06/09/17 19:42 72 06/09/17 19:39 28 06/09/17 19:39 81 16 100 Mechanical Ventilator 28 06/09/17 19:26 84 16 100 Mechanical Ventilator 28 06/09/17 19:24 74 16 28 06/09/17 17:10 73 16 28 06/09/17 16:00 72 06/09/17 16:00 97.7 72 16 158/82 100 Mechanical Ventilator 28 06/09/17 16:00 28 06/09/17 15:14 28 06/09/17 15:14 70 16 100 Mechanical Ventilator 28 06/09/17 14:54 72 16 28 06/09/17 14:54 72 16 100 Mechanical Ventilator 28 06/09/17 12:57 70 16 28 06/09/17 12:00 74 06/09/17 12:00 28 06/09/17 12:00 97.9 75 16 149/83 100 Mechanical Ventilator 28 06/09/17 11:40 70 16 100 Mechanical Ventilator 28 06/09/17 11:24 28 06/09/17 11:19 71 16 28 06/09/17 11:08 74 16 100 Mechanical Ventilator 28 06/09/17 09:21 69 16 28 Laboratory Tests 06/10/17 04:30: White Blood Count 7.3, Red Blood Count 2.92L, Hemoglobin 9.2L, Hematocrit 29.2L , Mean Corpuscular Volume 100H, Mean Corpuscular Hemoglobin 31.5H, Mean Corpuscular Hemoglobin Concent 31.5L, Red Cell Distribution Width 20.2H, Platelet Count 342, Mean Platelet Volume 7.8, Neutrophils (%) (Auto) 72.5, Lymphocytes (%) (Auto) 19.4L, Monocytes (%) (Auto) 3.5, Eosinophils (%) (Auto) 3.2H, Basophils (%) (Auto) 1.5, Sodium Level 139, Potassium Level 3.8, Chloride Level 103, Carbon Dioxide Level 25, Anion Gap 11, Blood Urea Nitrogen 67H, Creatinine 1.2, Estimat Glomerular Filtration Rate 45.5, Glucose Level 138H, Calcium Level 8.8, Total Bilirubin 0.4, Aspartate Amino Transf (AST/SGOT) 12L, Alanine Aminotransferase (ALT/SGPT) 17, Alkaline Phosphatase 138H, Total Protein 6.8, Albumin 2.3L, Globulin 4.5, Albumin/Globulin Ratio 0.5L Height (Feet): 5 Height (Inches): 0.00 Weight (Pounds): 232 Objective General Appearance: WD/WN, alert Neck: supple Cardiovascular: regular rhythm Respiratory/Chest: lungs clear Abdomen: hypoactive bowel sounds, distended Edema: severe edema Neurologic: unresponsive OCHOA BISWAS Jun 10, 2017 09:03
--- NOTE | 2017-06-10 11:33 | Infectious Diseases Prog Note ---
Assessment/Plan Assessment/Plan A 1. klebsiella UTI treated 2. leucocytosis resolved 3. VDRF 4. DM 5. HPN 6. anoxic brain injury 7. Anasarca 8. Pericardial effusion 9. ascites P 1. Observe off antibiotic Subjective ROS Limited/Unobtainable: Yes Allergies: Coded Allergies: OLANZAPINE (Verified Allergy, Severe, RESP FAILURE, 11/25/13) VANCOMYCIN (Verified Allergy, Severe, 11/25/13) PIPERACILLIN (Verified Allergy, Intermediate, HIVES, 11/25/13) TAZOBACTAM (Verified Allergy, Intermediate, HIVES, 11/25/13) Objective Vital Signs Last 24 Hour Vital Signs Date Time Temp Pulse Resp B/P (MAP) Pulse Ox O2 Delivery O2 Flow Rate FiO2 06/10/17 10:49 73 16 99 Mechanical Ventilator 28 06/10/17 10:40 73 16 28 06/10/17 10:39 73 16 99 Mechanical Ventilator 28 06/10/17 08:57 76 16 28 06/10/17 08:00 74 06/10/17 08:00 28 06/10/17 08:00 98.1 75 16 139/80 98 Mechanical Ventilator 06/10/17 06:56 76 16 99 Mechanical Ventilator 28 06/10/17 06:48 75 16 99 Mechanical Ventilator 28 06/10/17 06:48 75 16 28 06/10/17 06:48 28 06/10/17 05:18 77 16 28 06/10/17 04:00 97.9 73 16 157/88 100 Mechanical Ventilator 06/10/17 04:00 28 06/10/17 03:37 69 06/10/17 03:25 72 16 100 Mechanical Ventilator 06/10/17 03:08 28 06/10/17 03:07 69 16 100 Mechanical Ventilator 06/10/17 03:05 67 16 28 06/10/17 01:53 69 16 28 06/10/17 00:00 98.0 78 18 155/92 100 Mechanical Ventilator 06/09/17 23:35 75 06/09/17 23:16 28 06/09/17 23:16 73 16 28 06/09/17 23:16 77 17 100 Venturi Mask 06/09/17 23:16 73 16 100 Mechanical Ventilator 28 06/09/17 21:24 72 16 28 06/09/17 20:00 97.9 77 16 158/92 100 Mechanical Ventilator 28 06/09/17 20:00 28 06/09/17 19:42 72 06/09/17 19:39 28 06/09/17 19:39 81 16 100 Mechanical Ventilator 28 06/09/17 19:26 84 16 100 Mechanical Ventilator 28 06/09/17 19:24 74 16 28 06/09/17 17:10 73 16 28 06/09/17 16:00 72 06/09/17 16:00 97.7 72 16 158/82 100 Mechanical Ventilator 28 06/09/17 16:00 28 06/09/17 15:14 28 06/09/17 15:14 70 16 100 Mechanical Ventilator 28 06/09/17 14:54 72 16 28 06/09/17 14:54 72 16 100 Mechanical Ventilator 28 06/09/17 12:57 70 16 28 06/09/17 12:00 74 06/09/17 12:00 28 06/09/17 12:00 97.9 75 16 149/83 100 Mechanical Ventilator 28 06/09/17 11:40 70 16 100 Mechanical Ventilator 28 Height (Feet): 5 Height (Inches): 0.00 Weight (Pounds): 232 HEENT: status post trach Respiratory/Chest: other - on ventilator coarse sounds Cardiovascular: normal rate Abdomen: soft, non tender, other - GT feeding Extremities: other - anasarca Skin: other Neurologic/Psychiatric: other - opens eyes Microbiology Date/Time Source Procedure Growth Status 06/09/17 04:30 Stool Clostridium difficile Toxin Assay - Final Complete Laboratory Tests Test 06/10/17 04:30 White Blood Count 7.3 K/UL (4.8-10.8) Red Blood Count 2.92 M/UL (4.20-5.40) L Hemoglobin 9.2 G/DL (12.0-16.0) L Hematocrit 29.2 % (37.0-47.0) L Mean Corpuscular Volume 100 FL (80-99) H Mean Corpuscular Hemoglobin 31.5 PG (27.0-31.0) H Mean Corpuscular Hemoglobin Concent 31.5 G/DL (32.0-36.0) L Red Cell Distribution Width 20.2 % (11.6-14.8) H Platelet Count 342 K/UL (150-450) Mean Platelet Volume 7.8 FL (6.5-10.1) Neutrophils (%) (Auto) 72.5 % (45.0-75.0) Lymphocytes (%) (Auto) 19.4 % (20.0-45.0) L Monocytes (%) (Auto) 3.5 % (1.0-10.0) Eosinophils (%) (Auto) 3.2 % (0.0-3.0) H Basophils (%) (Auto) 1.5 % (0.0-2.0) Sodium Level 139 MMOL/L (136-145) Potassium Level 3.8 MMOL/L (3.5-5.1) Chloride Level 103 MMOL/L (98-107) Carbon Dioxide Level 25 MMOL/L (21-32) Anion Gap 11 mmol/L (5-15) Blood Urea Nitrogen 67 mg/dL (7-18) H Creatinine 1.2 MG/DL (0.55-1.30) Estimat Glomerular Filtration Rate 45.5 mL/min (>60) Glucose Level 138 MG/DL (74-106) H Calcium Level 8.8 MG/DL (8.5-10.1) Total Bilirubin 0.4 MG/DL (0.2-1.0) Aspartate Amino Transf (AST/SGOT) 12 U/L (15-37) L Alanine Aminotransferase (ALT/SGPT) 17 U/L (12-78) Alkaline Phosphatase 138 U/L (46-116) H Total Protein 6.8 G/DL (6.4-8.2) Albumin 2.3 G/DL (3.4-5.0) L Globulin 4.5 g/dL Albumin/Globulin Ratio 0.5 (1.0-2.7) L Current Medications Medications (Trade) Dose Ordered Sig/Alex Route PRN Reason Start Time Stop Time Status Last Admin Dose Admin Acetaminophen (Tylenol) 650 mg Q6H PRN GT Mild Pain/Temp > 100.5 05/30/17 01:15 06/22/17 19:14 Albuterol Sulfate (Proventil) 2.5 mg Q4HRT HHN 06/07/17 23:30 06/12/17 23:29 06/10/17 10:39 Allopurinol (Zyloprim) 100 mg DAILY GT 06/05/17 09:00 07/05/17 08:59 06/10/17 08:26 Amiodarone HCl (Cordarone) 200 mg DAILY GT 06/09/17 09:00 06/26/17 20:59 06/10/17 08:26 Atenolol (Tenormin) 12.5 mg DAILY GT 05/30/17 09:00 06/24/17 10:59 06/10/17 08:26 Bisacodyl (Dulcolax) 5 mg DAILYPRN PRN RECTAL Constipation 05/29/17 20:30 06/22/17 20:29 Chlorhexidine Gluconate (Rubina-Hex 2%) 1 applic DAILY@2000 TOPIC 05/29/17 20:00 06/24/17 19:59 06/09/17 20:08 Dextrose (Dextrose 50%) STAT PRN IV Hypoglycemia 05/30/17 08:30 06/23/17 08:29 Epoetin Amadou (Procrit (for non ESRD use)) 7,500 units SUN-SUN-SUN SUBQ 06/04/17 21:00 07/04/17 20:59 06/08/17 21:21 Heparin Sodium (Porcine) (Heparin 5000 units/ml) 5,000 units EVERY 12 HOURS SUBQ 05/29/17 21:00 06/22/17 08:59 06/10/17 08:29 Insulin Aspart (NovoLOG) EVERY 6 HOURS SUBQ 05/30/17 00:00 06/23/17 11:29 06/10/17 05:46 Ipratropium [place] (Atrovent) 500 mcg Q4HRT HHN 06/07/17 23:30 06/12/17 23:29 06/10/17 10:39 Lansoprazole (Prevacid) 30 mg DAILY GT 05/31/17 09:00 06/30/17 08:59 06/10/17 08:26 Levothyroxine Sodium (Synthroid) 75 mcg ACBREAKFAST GT 05/30/17 06:30 06/21/17 06:29 06/10/17 05:37 Levothyroxine Sodium (Synthroid) 100 mcg ACBREAKFAST GT 05/30/17 06:30 06/21/17 06:29 06/10/17 05:37 Patient Own Medication (Patient's Own Med) 1 ea BID ORAL 05/30/17 09:00 1/18 17:59 06/10/17 08:24 Patient Own Medication (Patient's Own Med) 1 ea QID BOTH EYES 05/29/17 21:00 06/28/17 17:59 06/10/17 08:30 Patient Own Medication (Patient's Own Med) 1 ea QID BOTH EYES 05/29/17 21:00 06/22/17 20:59 06/10/17 08:24 EPIFANIO NGUYEN Jun 10, 2017 11:33
--- NOTE | 2017-06-10 11:47 | Nephrology Progress Note ---
Assessment/Plan Assessment 1) Chronic VDRF 2) GELA 3) S/P septic shock 4) Fluid overload/CHF probably due to chronic diastolic CHF 5) CKD III Plan: Will Give Bumex 2 mg IV Q8 x3 again Ok to be discharged from my standpoint No need for dialysis d/c dialysis catheter Subjective Subjective She is still on the vent, had good diuresis, creat is still 1.2, no new development Objective Objective Last 24 Hour Vital Signs Date Time Temp Pulse Resp B/P (MAP) Pulse Ox O2 Delivery O2 Flow Rate FiO2 06/10/17 10:49 73 16 99 Mechanical Ventilator 28 06/10/17 10:40 73 16 28 06/10/17 10:39 73 16 99 Mechanical Ventilator 28 06/10/17 08:57 76 16 28 06/10/17 08:00 74 06/10/17 08:00 28 06/10/17 08:00 98.1 75 16 139/80 98 Mechanical Ventilator 28 06/10/17 06:56 76 16 99 Mechanical Ventilator 28 06/10/17 06:48 75 16 99 Mechanical Ventilator 28 06/10/17 06:48 75 16 28 06/10/17 06:48 28 06/10/17 05:18 77 16 28 06/10/17 04:00 97.9 73 16 157/88 100 Mechanical Ventilator 28 06/10/17 04:00 28 06/10/17 03:37 69 06/10/17 03:25 72 16 100 Mechanical Ventilator 28 06/10/17 03:08 28 06/10/17 03:07 69 16 100 Mechanical Ventilator 28 06/10/17 03:05 67 16 28 06/10/17 01:53 69 16 28 06/10/17 00:00 98.0 78 18 155/92 100 Mechanical Ventilator 28 06/09/17 23:35 75 06/09/17 23:16 28 06/09/17 23:16 73 16 28 06/09/17 23:16 77 17 100 Venturi Mask 06/09/17 23:16 73 16 100 Mechanical Ventilator 28 06/09/17 21:24 72 16 28 06/09/17 20:00 97.9 77 16 158/92 100 Mechanical Ventilator 28 06/09/17 20:00 28 06/09/17 19:42 72 06/09/17 19:39 28 06/09/17 19:39 81 16 100 Mechanical Ventilator 28 06/09/17 19:26 84 16 100 Mechanical Ventilator 28 06/09/17 19:24 74 16 28 06/09/17 17:10 73 16 28 06/09/17 16:00 72 06/09/17 16:00 97.7 72 16 158/82 100 Mechanical Ventilator 28 06/09/17 16:00 28 06/09/17 15:14 28 06/09/17 15:14 70 16 100 Mechanical Ventilator 28 06/09/17 14:54 72 16 28 06/09/17 14:54 72 16 100 Mechanical Ventilator 28 06/09/17 12:57 70 16 28 06/09/17 12:00 74 06/09/17 12:00 28 06/09/17 12:00 97.9 75 16 149/83 100 Mechanical Ventilator 28 Laboratory Tests 06/10/17 04:30: White Blood Count 7.3, Red Blood Count 2.92L, Hemoglobin 9.2L, Hematocrit 29.2L , Mean Corpuscular Volume 100H, Mean Corpuscular Hemoglobin 31.5H, Mean Corpuscular Hemoglobin Concent 31.5L, Red Cell Distribution Width 20.2H, Platelet Count 342, Mean Platelet Volume 7.8, Neutrophils (%) (Auto) 72.5, Lymphocytes (%) (Auto) 19.4L, Monocytes (%) (Auto) 3.5, Eosinophils (%) (Auto) 3.2H, Basophils (%) (Auto) 1.5, Sodium Level 139, Potassium Level 3.8, Chloride Level 103, Carbon Dioxide Level 25, Anion Gap 11, Blood Urea Nitrogen 67H, Creatinine 1.2, Estimat Glomerular Filtration Rate 45.5, Glucose Level 138H, Calcium Level 8.8, Total Bilirubin 0.4, Aspartate Amino Transf (AST/SGOT) 12L, Alanine Aminotransferase (ALT/SGPT) 17, Alkaline Phosphatase 138H, Total Protein 6.8, Albumin 2.3L, Globulin 4.5, Albumin/Globulin Ratio 0.5L Height (Feet): 5 Height (Inches): 0.00 Weight (Pounds): 232 General Appearance: WD/WN, no apparent distress EENT: PERRL/EOMI Neck: non-tender, normal alignment Cardiovascular: normal peripheral pulses, normal rate, regular rhythm Respiratory/Chest: decreased breath sounds Abdomen: normal bowel sounds, non tender, soft Extremities: normal range of motion, moderate edema 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
[2017-06-10 12:00] VITALS: BP 140/81
--- NOTE | 2017-06-10 13:29 | General Progress Note ---
Assessment/Plan Assessment/Plan Assessment - Encephalopathy - Resp failure - Trach - dysphagia - PEG - abnormal LFT--> Improving - edema / anasarca - abd distention due to ascites - no SBP on tap - UTI/PNA - leukocytosis --> Improved - azotemia --> improved - pericardial effusion - marked thrombocytosis - resolved - poor Px Recommendations - continue TF - f/u hepatitis serologies --> Negative - diurese as feasible - continue abx - d/c planning Subjective Allergies: Coded Allergies: OLANZAPINE (Verified Allergy, Severe, RESP FAILURE, 11/25/13) VANCOMYCIN (Verified Allergy, Severe, 11/25/13) PIPERACILLIN (Verified Allergy, Intermediate, HIVES, 11/25/13) TAZOBACTAM (Verified Allergy, Intermediate, HIVES, 11/25/13) Subjective d/w RN tolerating TF abd distended without change d/c planning noted Objective Last 24 Hour Vital Signs Date Time Temp Pulse Resp B/P (MAP) Pulse Ox O2 Delivery O2 Flow Rate FiO2 06/10/17 12:44 75 16 28 06/10/17 12:00 97.9 79 16 140/81 98 Mechanical Ventilator 06/10/17 11:48 28 06/10/17 11:48 74 06/10/17 10:49 73 16 99 Mechanical Ventilator 06/10/17 10:40 73 16 28 06/10/17 10:39 73 16 99 Mechanical Ventilator 06/10/17 08:57 76 16 28 06/10/17 08:00 74 06/10/17 08:00 28 06/10/17 08:00 98.1 75 16 139/80 98 Mechanical Ventilator 06/10/17 06:56 76 16 99 Mechanical Ventilator 06/10/17 06:48 75 16 99 Mechanical Ventilator 06/10/17 06:48 75 16 28 06/10/17 06:48 28 06/10/17 05:18 77 16 28 06/10/17 04:00 97.9 73 16 157/88 100 Mechanical Ventilator 06/10/17 04:00 28 06/10/17 03:37 69 06/10/17 03:25 72 16 100 Mechanical Ventilator 06/10/17 03:08 28 06/10/17 03:07 69 16 100 Mechanical Ventilator 06/10/17 03:05 67 16 28 06/10/17 01:53 69 16 28 06/10/17 00:00 98.0 78 18 155/92 100 Mechanical Ventilator 28 06/09/17 23:35 75 06/09/17 23:16 28 06/09/17 23:16 73 16 28 06/09/17 23:16 77 17 100 Venturi Mask 28 06/09/17 23:16 73 16 100 Mechanical Ventilator 28 06/09/17 21:24 72 16 28 06/09/17 20:00 97.9 77 16 158/92 100 Mechanical Ventilator 28 06/09/17 20:00 28 06/09/17 19:42 72 06/09/17 19:39 28 06/09/17 19:39 81 16 100 Mechanical Ventilator 28 06/09/17 19:26 84 16 100 Mechanical Ventilator 28 06/09/17 19:24 74 16 28 06/09/17 17:10 73 16 28 06/09/17 16:00 72 06/09/17 16:00 97.7 72 16 158/82 100 Mechanical Ventilator 28 06/09/17 16:00 28 06/09/17 15:14 28 06/09/17 15:14 70 16 100 Mechanical Ventilator 28 06/09/17 14:54 72 16 28 06/09/17 14:54 72 16 100 Mechanical Ventilator 28 Intake and Output 06/10/17 06/11/17 19:00 07:00 Intake Total 400 ml Balance 400 ml Free Water 100 ml Tube Feeding 300 ml Laboratory Tests 06/10/17 04:30: White Blood Count 7.3, Red Blood Count 2.92L, Hemoglobin 9.2L, Hematocrit 29.2L , Mean Corpuscular Volume 100H, Mean Corpuscular Hemoglobin 31.5H, Mean Corpuscular Hemoglobin Concent 31.5L, Red Cell Distribution Width 20.2H, Platelet Count 342, Mean Platelet Volume 7.8, Neutrophils (%) (Auto) 72.5, Lymphocytes (%) (Auto) 19.4L, Monocytes (%) (Auto) 3.5, Eosinophils (%) (Auto) 3.2H, Basophils (%) (Auto) 1.5, Sodium Level 139, Potassium Level 3.8, Chloride Level 103, Carbon Dioxide Level 25, Anion Gap 11, Blood Urea Nitrogen 67H, Creatinine 1.2, Estimat Glomerular Filtration Rate 45.5, Glucose Level 138H, Calcium Level 8.8, Total Bilirubin 0.4, Aspartate Amino Transf (AST/SGOT) 12L, Alanine Aminotransferase (ALT/SGPT) 17, Alkaline Phosphatase 138H, Total Protein 6.8, Albumin 2.3L, Globulin 4.5, Albumin/Globulin Ratio 0.5L Height (Feet): 5 Height (Inches): 0.00 Weight (Pounds): 232 Objective Obese WW NCAT supple Chest: coarse BS RRR obese, firm and distended abd, (+) GT (++) edema / anasarca OBS JILL WHITNEY Jun 10, 2017 13:29
[2017-06-10] MEDS ORDERED: Bumetanide 2.5mg/10ml Inj IVP SCH (14:00)
[2017-06-10 16:00] VITALS: BP 151/80
[2017-06-10 20:00] VITALS: BP 159/85
[2017-06-10] MEDS: Dyna-Hex 2% Top Sol 2oz TOPIC SCH (20:57)
[2017-06-11] VITALS: BP 157/77
[2017-06-11] MEDS: Ipratropium 0.02% Inh Soln 2.5ml UD HHN SCH ×6 (03:05→22:47)
[2017-06-11] MEDS: Albuterol ud Inhalation HHN SCH ×6 (03:05→22:47)
[2017-06-11 04:00] VITALS: BP 160/91
[2017-06-11] MEDS: NovoLOG Insulin Flexpen SUBQ SCH ×3 (05:51→18:11)
[2017-06-11 06:10] LABS: BASOPHILS % (AUTO) 1.9 % (0.0-2.0); EOSINOPHILS % (AUTO) 3.9 % (0.0-3.0); MEAN CORPUSCULAR HEMOGLOBIN 31.1 PG (27.0-31.0); MEAN CORPUSCULAR HGB CONC 31.1 G/DL (32.0-36.0); MEAN CORPUSCULAR VOLUME 100 FL (80-99); MEAN PLATELET VOLUME 7.6 FL (6.5-10.1); MONOCYTES % (AUTO) 5.3 % (1.0-10.0); PLATELET COUNT 416 K/UL (150-450); RED BLOOD COUNT 3.09 M/UL (4.20-5.40); RED CELL DISTRIBUTION WIDTH 20.3 % (11.6-14.8); WHITE BLOOD COUNT 8.3 K/UL (4.8-10.8)
[2017-06-11 06:19] LABS: ANION GAP 8 mmol/L (5-15); CALCIUM 9.1 MG/DL (8.5-10.1); CARBON DIOXIDE 28 MMOL/L (21-32); CHLORIDE 103 MMOL/L (98-107); CREATININE 1.2 MG/DL (0.55-1.30); GLOMERULAR FILTRATION RATE 45.5 mL/min (>60); POTASSIUM 5.2 MMOL/L (3.5-5.1); SODIUM 139 MMOL/L (136-145)
[2017-06-11] MEDS: BUMETANIDE 1MG/4ML VIAL IV SCH (07:42)
[2017-06-11 08:00] VITALS: BP 156/84
[2017-06-11] MEDS: Heparin 5000 units/ml inj SUBQ SCH ×2 (09:00→20:50)
--- NOTE | 2017-06-11 09:19 | General Progress Note ---
Assessment/Plan Assessment/Plan Assessment - Encephalopathy - Resp failure - Trach - dysphagia - PEG - abnormal LFT--> Improving - edema / anasarca - abd distention due to ascites - no SBP on tap - UTI/PNA - leukocytosis --> Improved - azotemia --> improved - pericardial effusion - marked thrombocytosis - resolved - poor Px Recommendations - continue TF - f/u hepatitis serologies --> Negative - diurese as feasible - continue abx - d/c planning Subjective Allergies: Coded Allergies: OLANZAPINE (Verified Allergy, Severe, RESP FAILURE, 11/25/13) VANCOMYCIN (Verified Allergy, Severe, 11/25/13) PIPERACILLIN (Verified Allergy, Intermediate, HIVES, 11/25/13) TAZOBACTAM (Verified Allergy, Intermediate, HIVES, 11/25/13) Subjective d/w RN tolerating TF 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 Objective Last 24 Hour Vital Signs Date Time Temp Pulse Resp B/P (MAP) Pulse Ox O2 Delivery O2 Flow Rate FiO2 06/11/17 07:48 65 16 100 Mechanical Ventilator 06/11/17 07:38 28 06/11/17 07:38 62 16 100 Mechanical Ventilator 06/11/17 06:50 63 16 28 06/11/17 05:27 66 16 28 06/11/17 04:00 28 06/11/17 04:00 90 06/11/17 04:00 97.8 90 20 160/91 98 Mechanical Ventilator 06/11/17 03:20 71 16 99 Mechanical Ventilator 06/11/17 03:05 72 16 98 Mechanical Ventilator 06/11/17 03:05 72 16 28 06/11/17 03:05 28 06/11/17 01:15 73 16 28 06/11/17 01:12 75 06/11/17 00:00 98.4 77 16 157/77 98 Mechanical Ventilator 06/11/17 00:00 28 06/10/17 23:27 74 16 100 Mechanical Ventilator 06/10/17 23:12 76 16 99 Mechanical Ventilator 28 06/10/17 23:12 28 06/10/17 23:11 76 16 28 06/10/17 21:14 75 17 28 06/10/17 20:00 79 06/10/17 20:00 28 06/10/17 20:00 98.9 77 16 159/85 99 Mechanical Ventilator 28 06/10/17 19:28 76 16 100 Mechanical Ventilator 28 06/10/17 19:13 77 16 28 06/10/17 19:13 77 16 99 Mechanical Ventilator 28 06/10/17 19:13 28 06/10/17 17:08 76 16 28 06/10/17 16:00 77 06/10/17 16:00 28 06/10/17 16:00 98.1 77 16 151/80 98 Mechanical Ventilator 28 06/10/17 15:40 74 16 99 Mechanical Ventilator 28 06/10/17 15:31 74 16 99 Mechanical Ventilator 28 06/10/17 15:28 75 16 28 06/10/17 12:44 75 16 28 06/10/17 12:00 97.9 79 16 140/81 98 Mechanical Ventilator 28 06/10/17 11:48 28 06/10/17 11:48 74 06/10/17 10:49 73 16 99 Mechanical Ventilator 28 06/10/17 10:40 73 16 28 06/10/17 10:39 73 16 99 Mechanical Ventilator 28 Laboratory Tests 06/11/17 05:55: White Blood Count 8.3, Red Blood Count 3.09L, Hemoglobin 9.6L, Hematocrit 30.9L , Mean Corpuscular Volume 100H, Mean Corpuscular Hemoglobin 31.1H, Mean Corpuscular Hemoglobin Concent 31.1L, Red Cell Distribution Width 20.3H, Platelet Count 416, Mean Platelet Volume 7.6, Neutrophils (%) (Auto) 74.0, Lymphocytes (%) (Auto) 15.0L, Monocytes (%) (Auto) 5.3, Eosinophils (%) (Auto) 3.9H, Basophils (%) (Auto) 1.9, Sodium Level 139, Potassium Level 5.2H, Chloride Level 103, Carbon Dioxide Level 28, Anion Gap 8, Blood Urea Nitrogen 66H, Creatinine 1.2, Estimat Glomerular Filtration Rate 45.5, Glucose Level 149H , Calcium Level 9.1 Height (Feet): 5 Height (Inches): 0.00 Weight (Pounds): 231 Objective Obese WW NCAT supple Chest: coarse BS RRR obese, firm and distended abd, (+) GT (++) edema / anasarca OBS JILL WHITNEY Jun 11, 2017 09:19
[2017-06-11] MEDS: Allopurinol 100mg Tab GT SCH (09:34)
[2017-06-11] MEDS: Amiodarone 200mg tab GT SCH (09:34)
[2017-06-11] MEDS: Atenolol 12.5mg GT SCH (09:34)
[2017-06-11] MEDS: SYSTANE ULTRA BOTH EYES SCH ×4 (09:35→20:47)
[2017-06-11] MEDS: [UNRECOGNIZED DRUG - OTHER] ORAL SCH ×2 (09:49→18:00)
[2017-06-11] MEDS: [UNRECOGNIZED DRUG - OTHER] BOTH EYES SCH ×4 (09:51→20:48)
--- NOTE | 2017-06-11 10:44 | General Progress Note ---
Assessment/Plan Problem List: (1) Sepsis ICD Codes: A41.9 - Sepsis, unspecified organism SNOMED: 57142450 (2) Pneumonia ICD Codes: J18.9 - Pneumonia, unspecified organism SNOMED: 542354379 (3) Acute renal failure ICD Codes: N17.9 - Acute kidney failure, unspecified SNOMED: 90663228 (4) Pericardial effusion ICD Codes: I31.3 - Pericardial effusion (noninflammatory) SNOMED: 885710504 (5) Tracheostomy malfunction ICD Codes: J95.03 - Malfunction of tracheostomy stoma SNOMED: 27244244 (6) UTI (urinary tract infection) ICD Codes: N39.0 - Urinary tract infection, site not specified SNOMED: 27394140, 911605189 Qualifiers: Qualified Codes: N30.01 - Acute cystitis with hematuria Status: stable Assessment/Plan diuresis per renal monitor labs and fluid status monitor off abx monitor wbc- improving vent support resp rx monitor renal fxn poor prognosis. d/w caregiver. transfuse as needed dnr prognosis remains poor Subjective ROS Limited/Unobtainable: No Constitutional: Reports: malaise, weakness HEENT: Reports: no symptoms Cardiovascular: Reports: no symptoms Respiratory: Reports: no symptoms Gastrointestinal/Abdominal: Reports: no symptoms Genitourinary: Reports: no symptoms Neurologic/Psychiatric: Reports: no symptoms Endocrine: Reports: no symptoms Hematologic/Lymphatic: Reports: no symptoms Allergies: Coded Allergies: OLANZAPINE (Verified Allergy, Severe, RESP FAILURE, 11/25/13) VANCOMYCIN (Verified Allergy, Severe, 11/25/13) PIPERACILLIN (Verified Allergy, Intermediate, HIVES, 11/25/13) TAZOBACTAM (Verified Allergy, Intermediate, HIVES, 11/25/13) All Systems: reviewed and negative except above Subjective no overnight events. 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 diuresing well with bumex. on the vent. poorly responsive. tolerating feeds. labs reviewed. cxr noted Objective Last 24 Hour Vital Signs Date Time Temp Pulse Resp B/P (MAP) Pulse Ox O2 Delivery O2 Flow Rate FiO2 06/11/17 09:05 69 16 28 06/11/17 08:00 28 06/11/17 08:00 65 06/11/17 07:48 65 16 100 Mechanical Ventilator 28 12/18/17 07:38 28 06/11/17 07:38 62 16 100 Mechanical Ventilator 28 06/11/17 06:50 63 16 28 06/11/17 05:27 66 16 28 06/11/17 04:00 28 06/11/17 04:00 90 06/11/17 04:00 97.8 90 20 160/91 98 Mechanical Ventilator 28 06/11/17 03:20 71 16 99 Mechanical Ventilator 28 06/11/17 03:05 72 16 98 Mechanical Ventilator 28 06/11/17 03:05 72 16 28 06/11/17 03:05 28 06/11/17 01:15 73 16 28 06/11/17 01:12 75 06/11/17 00:00 98.4 77 16 157/77 98 Mechanical Ventilator 28 06/11/17 00:00 28 06/10/17 23:27 74 16 100 Mechanical Ventilator 28 06/10/17 23:12 76 16 99 Mechanical Ventilator 28 06/10/17 23:12 28 06/10/17 23:11 76 16 28 06/10/17 21:14 75 17 28 06/10/17 20:00 79 06/10/17 20:00 28 06/10/17 20:00 98.9 77 16 159/85 99 Mechanical Ventilator 28 06/10/17 19:28 76 16 100 Mechanical Ventilator 28 06/10/17 19:13 77 16 28 06/10/17 19:13 77 16 99 Mechanical Ventilator 28 06/10/17 19:13 28 06/10/17 17:08 76 16 28 06/10/17 16:00 77 06/10/17 16:00 28 06/10/17 16:00 98.1 77 16 151/80 98 Mechanical Ventilator 28 06/10/17 15:40 74 16 99 Mechanical Ventilator 28 06/10/17 15:31 74 16 99 Mechanical Ventilator 28 06/10/17 15:28 75 16 28 06/10/17 12:44 75 16 28 06/10/17 12:00 97.9 79 16 140/81 98 Mechanical Ventilator 28 06/10/17 11:48 28 06/10/17 11:48 74 06/10/17 10:49 73 16 99 Mechanical Ventilator 28 Intake and Output 06/11/17 06/12/17 19:00 07:00 # Bowel Movements 1 Laboratory Tests 06/11/17 05:55: White Blood Count 8.3, Red Blood Count 3.09L, Hemoglobin 9.6L, Hematocrit 30.9L , Mean Corpuscular Volume 100H, Mean Corpuscular Hemoglobin 31.1H, Mean Corpuscular Hemoglobin Concent 31.1L, Red Cell Distribution Width 20.3H, Platelet Count 416, Mean Platelet Volume 7.6, Neutrophils (%) (Auto) 74.0, Lymphocytes (%) (Auto) 15.0L, Monocytes (%) (Auto) 5.3, Eosinophils (%) (Auto) 3.9H, Basophils (%) (Auto) 1.9, Sodium Level 139, Potassium Level 5.2H, Chloride Level 103, Carbon Dioxide Level 28, Anion Gap 8, Blood Urea Nitrogen 66H, Creatinine 1.2, Estimat Glomerular Filtration Rate 45.5, Glucose Level 149H , Calcium Level 9.1 Height (Feet): 5 Height (Inches): 0.00 Weight (Pounds): 231 Objective General Appearance: WD/WN, alert Neck: supple Cardiovascular: regular rhythm Respiratory/Chest: lungs clear Abdomen: hypoactive bowel sounds, distended Edema: severe edema Neurologic: unresponsive OCHOA BISWAS Jun 11, 2017 10:44
[2017-06-11 12:00] VITALS: BP 165/85
--- NOTE | 2017-06-11 12:23 | Infectious Diseases Prog Note ---
Assessment/Plan Assessment/Plan A 1. klebsiella UTI treated 2. leucocytosis resolved 3. VDRF 4. DM 5. HPN 6. anoxic brain injury 7. Anasarca 8. Pericardial effusion 9. ascites P 1. Observe off antibiotic Subjective ROS Limited/Unobtainable: Yes Allergies: Coded Allergies: OLANZAPINE (Verified Allergy, Severe, RESP FAILURE, 11/25/13) VANCOMYCIN (Verified Allergy, Severe, 11/25/13) PIPERACILLIN (Verified Allergy, Intermediate, HIVES, 11/25/13) TAZOBACTAM (Verified Allergy, Intermediate, HIVES, 11/25/13) Objective Vital Signs Last 24 Hour Vital Signs Date Time Temp Pulse Resp B/P (MAP) Pulse Ox O2 Delivery O2 Flow Rate FiO2 06/11/17 12:00 28 06/11/17 11:20 61 16 100 Mechanical Ventilator 06/11/17 11:11 63 16 100 Mechanical Ventilator 28 06/11/17 11:11 28 06/11/17 10:41 61 16 28 06/11/17 09:05 69 16 28 06/11/17 08:00 28 06/11/17 08:00 97.6 65 20 156/84 98 Mechanical Ventilator 06/11/17 08:00 65 06/11/17 07:48 65 16 100 Mechanical Ventilator 06/11/17 07:38 28 06/11/17 07:38 62 16 100 Mechanical Ventilator 06/11/17 06:50 63 16 28 06/11/17 05:27 66 16 28 06/11/17 04:00 28 06/11/17 04:00 90 06/11/17 04:00 97.8 90 20 160/91 98 Mechanical Ventilator 06/11/17 03:20 71 16 99 Mechanical Ventilator 28 06/11/17 03:05 72 16 98 Mechanical Ventilator 28 06/11/17 03:05 72 16 28 06/11/17 03:05 28 06/11/17 01:15 73 16 28 06/11/17 01:12 75 06/11/17 00:00 98.4 77 16 157/77 98 Mechanical Ventilator 28 06/11/17 00:00 28 06/10/17 23:27 74 16 100 Mechanical Ventilator 28 06/10/17 23:12 76 16 99 Mechanical Ventilator 28 06/10/17 23:12 28 06/10/17 23:11 76 16 28 06/10/17 21:14 75 17 28 06/10/17 20:00 79 06/10/17 20:00 28 06/10/17 20:00 98.9 77 16 159/85 99 Mechanical Ventilator 28 06/10/17 19:28 76 16 100 Mechanical Ventilator 28 06/10/17 19:13 77 16 28 06/10/17 19:13 77 16 99 Mechanical Ventilator 28 06/10/17 19:13 28 06/10/17 17:08 76 16 28 06/10/17 16:00 77 06/10/17 16:00 28 06/10/17 16:00 98.1 77 16 151/80 98 Mechanical Ventilator 06/10/17 15:40 74 16 99 Mechanical Ventilator 28 06/10/17 15:31 74 16 99 Mechanical Ventilator 28 06/10/17 15:28 75 16 28 06/10/17 12:44 75 16 28 Height (Feet): 5 Height (Inches): 0.00 Weight (Pounds): 231 General Appearance: no acute distress HEENT: status post trach Respiratory/Chest: lungs clear, other - on ventilator Cardiovascular: normal rate, other - RIJ HD line Abdomen: soft, non tender, other - GT feeding Extremities: other - anasarca Neurologic/Psychiatric: other - opens eyes Microbiology Date/Time Source Procedure Growth Status 06/09/17 04:30 Stool Clostridium difficile Toxin Assay - Final Complete Laboratory Tests Test 06/11/17 05:55 White Blood Count 8.3 K/UL (4.8-10.8) Red Blood Count 3.09 M/UL (4.20-5.40) L Hemoglobin 9.6 G/DL (12.0-16.0) L Hematocrit 30.9 % (37.0-47.0) L Mean Corpuscular Volume 100 FL (80-99) H Mean Corpuscular Hemoglobin 31.1 PG (27.0-31.0) H Mean Corpuscular Hemoglobin Concent 31.1 G/DL (32.0-36.0) L Red Cell Distribution Width 20.3 % (11.6-14.8) H Platelet Count 416 K/UL (150-450) Mean Platelet Volume 7.6 FL (6.5-10.1) Neutrophils (%) (Auto) 74.0 % (45.0-75.0) Lymphocytes (%) (Auto) 15.0 % (20.0-45.0) L Monocytes (%) (Auto) 5.3 % (1.0-10.0) Eosinophils (%) (Auto) 3.9 % (0.0-3.0) H Basophils (%) (Auto) 1.9 % (0.0-2.0) Sodium Level 139 MMOL/L (136-145) Potassium Level 5.2 MMOL/L (3.5-5.1) H Chloride Level 103 MMOL/L (98-107) Carbon Dioxide Level 28 MMOL/L (21-32) Anion Gap 8 mmol/L (5-15) Blood Urea Nitrogen 66 mg/dL (7-18) H Creatinine 1.2 MG/DL (0.55-1.30) Estimat Glomerular Filtration Rate 45.5 mL/min (>60) Glucose Level 149 MG/DL (74-106) H Calcium Level 9.1 MG/DL (8.5-10.1) Current Medications Medications (Trade) Dose Ordered Sig/Alex Route PRN Reason Start Time Stop Time Status Last Admin Dose Admin Acetaminophen (Tylenol) 650 mg Q6H PRN GT Mild Pain/Temp > 100.5 05/30/17 01:15 06/22/17 19:14 Albuterol Sulfate (Proventil) 2.5 mg Q4HRT HHN 06/07/17 23:30 06/12/17 23:29 06/11/17 11:09 Allopurinol (Zyloprim) 100 mg DAILY GT 06/05/17 09:00 07/05/17 08:59 06/11/17 09:34 Amiodarone HCl (Cordarone) 200 mg DAILY GT 06/09/17 09:00 06/26/17 20:59 06/11/17 09:34 Atenolol (Tenormin) 12.5 mg DAILY GT 05/30/17 09:00 06/24/17 10:59 06/11/17 09:34 Bisacodyl (Dulcolax) 5 mg DAILYPRN PRN RECTAL Constipation 05/29/17 20:30 06/22/17 20:29 Chlorhexidine Gluconate (Rubina-Hex 2%) 1 applic DAILY@1999 TOPIC 05/29/17 20:00 06/24/17 19:59 06/10/17 20:57 Dextrose (Dextrose 50%) STAT PRN IV Hypoglycemia 05/30/17 08:30 06/23/17 08:29 Epoetin Amadou (Procrit (for non ESRD use)) 7,500 units MON-WED-SUN SUBQ 06/04/17 21:00 07/04/17 20:59 06/08/17 21:21 Heparin Sodium (Porcine) (Heparin 5000 units/ml) 5,000 units EVERY 12 HOURS SUBQ 05/29/17 21:00 06/22/17 08:59 06/10/17 08:29 Insulin Aspart (NovoLOG) EVERY 6 HOURS SUBQ 05/30/17 00:00 06/23/17 11:29 06/11/17 12:01 Ipratropium [place] (Atrovent) 500 mcg Q4HRT HHN 06/07/17 23:30 06/12/17 23:29 06/11/17 11:09 Lansoprazole (Prevacid) 30 mg DAILY GT 05/31/17 09:00 06/30/17 08:59 06/11/17 09:34 Levothyroxine Sodium (Synthroid) 75 mcg ACBREAKFAST GT 05/30/17 06:30 06/21/17 06:29 06/11/17 05:52 Levothyroxine Sodium (Synthroid) 100 mcg ACBREAKFAST GT 05/30/17 06:30 06/21/17 06:29 06/11/17 05:52 Patient Own Medication (Patient's Own Med) 1 ea BID ORAL 05/30/17 09:00 06/28/17 17:59 06/11/17 09:49 Patient Own Medication (Patient's Own Med) 1 ea QID BOTH EYES 05/29/17 21:00 06/28/17 17:59 06/11/17 12:02 Patient Own Medication (Patient's Own Med) 1 ea QID BOTH EYES 05/29/17 21:00 06/22/17 20:59 06/11/17 12:02 EPIFANIO NGUYEN Jun 11, 2017 12:23
[2017-06-11] MEDS ORDERED: Bumetanide 2.5mg/10ml Inj IVP SCH ×2 (14:45→15:15)
--- NOTE | 2017-06-11 14:49 | Nephrology Progress Note ---
Assessment/Plan Assessment 1) Chronic VDRF 2) GELA 3) S/P septic shock 4) Fluid overload/CHF probably due to chronic diastolic CHF 5) CKD III Plan: Will Give Bumex 2 mg IV Q8 x3 again will add Zaroxolyn 5 mg ?GT Q8 X2 1/2 hour before bumex Ok to be discharged from my standpoint No need for dialysis d/c dialysis catheter Subjective Subjective She is still on the vent, had good diuresis, creat is still 1.2, no new development, awaiting removal of Sandip catheter Objective Objective Last 24 Hour Vital Signs Date Time Temp Pulse Resp B/P (MAP) Pulse Ox O2 Delivery O2 Flow Rate FiO2 06/11/17 12:56 66 16 28 06/11/17 12:00 28 06/11/17 12:00 97.7 60 16 165/85 100 Mechanical Ventilator 28 06/11/17 12:00 61 06/11/17 11:20 61 16 100 Mechanical Ventilator 28 06/11/17 11:11 63 16 100 Mechanical Ventilator 28 06/11/17 11:11 28 06/11/17 10:41 61 16 28 06/11/17 09:05 69 16 28 06/11/17 08:00 28 06/11/17 08:00 97.6 65 20 156/84 98 Mechanical Ventilator 28 06/11/17 08:00 65 06/11/17 07:48 65 16 100 Mechanical Ventilator 28 06/11/17 07:38 28 06/11/17 07:38 62 16 100 Mechanical Ventilator 28 06/11/17 06:50 63 16 28 06/11/17 05:27 66 16 28 06/11/17 04:00 28 06/11/17 04:00 90 06/11/17 04:00 97.8 90 20 160/91 98 Mechanical Ventilator 28 06/11/17 03:20 71 16 99 Mechanical Ventilator 28 06/11/17 03:05 72 16 98 Mechanical Ventilator 28 06/11/17 03:05 72 16 28 06/11/17 03:05 28 06/11/17 01:15 73 16 28 06/11/17 01:12 75 06/11/17 00:00 98.4 77 16 157/77 98 Mechanical Ventilator 28 06/11/17 00:00 28 06/10/17 23:27 74 16 100 Mechanical Ventilator 28 06/10/17 23:12 76 16 99 Mechanical Ventilator 28 06/10/17 23:12 28 06/10/17 23:11 76 16 28 06/10/17 21:14 75 17 28 06/10/17 20:00 79 06/10/17 20:00 28 06/10/17 20:00 98.9 77 16 159/85 99 Mechanical Ventilator 28 06/10/17 19:28 76 16 100 Mechanical Ventilator 28 06/10/17 19:13 77 16 28 06/10/17 19:13 77 16 99 Mechanical Ventilator 28 06/10/17 19:13 28 06/10/17 17:08 76 16 28 06/10/17 16:00 77 06/10/17 16:00 28 06/10/17 16:00 98.1 77 16 151/80 98 Mechanical Ventilator 28 06/10/17 15:40 74 16 99 Mechanical Ventilator 28 06/10/17 15:31 74 16 99 Mechanical Ventilator 28 06/10/17 15:28 75 16 28 Intake and Output 06/11/17 06/12/17 19:00 07:00 Intake Total 50 ml Output Total 500 ml Balance -450 ml Tube Feeding 50 ml Output Urine Total 500 ml # Bowel Movements 2 Laboratory Tests 06/11/17 05:55: White Blood Count 8.3, Red Blood Count 3.09L, Hemoglobin 9.6L, Hematocrit 30.9L , Mean Corpuscular Volume 100H, Mean Corpuscular Hemoglobin 31.1H, Mean Corpuscular Hemoglobin Concent 31.1L, Red Cell Distribution Width 20.3H, Platelet Count 416, Mean Platelet Volume 7.6, Neutrophils (%) (Auto) 74.0, Lymphocytes (%) (Auto) 15.0L, Monocytes (%) (Auto) 5.3, Eosinophils (%) (Auto) 3.9H, Basophils (%) (Auto) 1.9, Sodium Level 139, Potassium Level 5.2H, Chloride Level 103, Carbon Dioxide Level 28, Anion Gap 8, Blood Urea Nitrogen 66H, Creatinine 1.2, Estimat Glomerular Filtration Rate 45.5, Glucose Level 149H , Calcium Level 9.1 Height (Feet): 5 Height (Inches): 0.00 Weight (Pounds): 231 General Appearance: WD/WN, no apparent distress, alert, other EENT: PERRL/EOMI, other - on the vent Neck: non-tender, normal alignment Cardiovascular: JVD - high Respiratory/Chest: lungs clear, decreased breath sounds Abdomen: normal bowel sounds, non tender, soft Extremities: moderate edema Neurologic: no motor/sensory deficits BIBI URENA Jun 11, 2017 14:49
[2017-06-11] MEDS ORDERED: Cathflo Alteplase 2mg Inj INJ ONE (15:30)
[2017-06-11 16:00] VITALS: BP 181/96
[2017-06-11] MEDS: Bumetanide 1mg tab GT SCH ×2 (16:53→22:21)
--- NOTE | 2017-06-11 17:03 | Wound Care Consultation ---
Wound Assessment Wound Assessment : Wound Number: 1 Wound Present on Admission: No New Wound: Yes Status Change of Wound: No Wound Location Body Site: perineal area Wound Type: chemical burn Jasmin Test: Does not Jasmin Percent of Wound [place]/Red: 100 Wound Drainage Amount: None Wound Drainage Odor: None/Absent Tissue Surrounding Wound: Erythemic Wound General Appearance: Reddened Wound Comment #1 Left abdominal area small intact blister. Resolved. #2 Chemical burn on perineal area. Noted with good progress. Chemical burn is resolving at this time. will cont same wound care and recommendation below. Recommendation -Local wound care per protocol -Keep clean and dry -Turn and reposition -Optimize nutrition -Offload both heels -Heel protector on both heels -Assess and f/u accordingly for any changes KATERINA OSORIO RN Jun 11, 2017 17:03
[2017-06-11 20:00] VITALS: BP 154/79
[2017-06-11] MEDS: Dyna-Hex 2% Top Sol 2oz TOPIC SCH (20:47)
[2017-06-11] MEDS: Epogen (for non ESRD use) SUBQ SCH (21:43)
[2017-06-11] MEDS ORDERED: Bumetanide 1mg tab GT SCH (22:00)
[2017-06-12] MEDS: NovoLOG Insulin Flexpen SUBQ SCH ×4 (00:07→18:05)
[2017-06-12 00:59] VITALS: BP 160/82
[2017-06-12] MEDS: Albuterol ud Inhalation HHN SCH ×6 (03:22→23:35)
[2017-06-12] MEDS: Ipratropium 0.02% Inh Soln 2.5ml UD HHN SCH ×6 (03:22→23:34)
[2017-06-12 04:00] VITALS: BP 158/92
[2017-06-12] MEDS: Bumetanide 1mg tab GT SCH ×2 (06:37→18:04)
[2017-06-12 08:00] VITALS: BP 159/91
--- NOTE | 2017-06-12 08:19 | General Progress Note ---
Assessment/Plan Problem List: (1) Sepsis ICD Codes: A41.9 - Sepsis, unspecified organism SNOMED: 64788887 (2) Pneumonia ICD Codes: J18.9 - Pneumonia, unspecified organism SNOMED: 849078756 (3) Acute renal failure ICD Codes: N17.9 - Acute kidney failure, unspecified SNOMED: 12204137 (4) Pericardial effusion ICD Codes: I31.3 - Pericardial effusion (noninflammatory) SNOMED: 074591607 (5) Tracheostomy malfunction ICD Codes: J95.03 - Malfunction of tracheostomy stoma SNOMED: 09708136 (6) UTI (urinary tract infection) ICD Codes: N39.0 - Urinary tract infection, site not specified SNOMED: 78642597, 549528324 Qualifiers: Qualified Codes: N30.01 - Acute cystitis with hematuria Status: stable Assessment/Plan diuresis per renal monitor labs and fluid status monitor off abx monitor wbc- improving vent support resp rx monitor renal fxn poor prognosis. d/w caregiver. transfuse as needed dnr prognosis remains poor dc planning- multiple request from RP Subjective ROS Limited/Unobtainable: Yes Constitutional: Reports: malaise, weakness HEENT: Reports: no symptoms Cardiovascular: Reports: no symptoms Respiratory: Reports: cough, shortness of breath Gastrointestinal/Abdominal: Reports: abdomen distended, difficulty swallowing Genitourinary: Reports: no symptoms Neurologic/Psychiatric: Reports: pre-existing deficit Endocrine: Reports: no symptoms Hematologic/Lymphatic: Reports: no symptoms Allergies: Coded Allergies: OLANZAPINE (Verified Allergy, Severe, RESP FAILURE, 11/25/13) VANCOMYCIN (Verified Allergy, Severe, 11/25/13) PIPERACILLIN (Verified Allergy, Intermediate, HIVES, 11/25/13) TAZOBACTAM (Verified Allergy, Intermediate, HIVES, 11/25/13) Subjective no overnight events. 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 on po bumex. on the vent. poorly responsive. tolerating feeds. labs reviewed. cxr noted Objective Last 24 Hour Vital Signs Date Time Temp Pulse Resp B/P (MAP) Pulse Ox O2 Delivery O2 Flow Rate FiO2 06/12/17 07:10 72 16 100 Mechanical Ventilator 28 06/12/17 07:10 28 06/12/17 07:10 72 16 28 06/12/17 05:02 75 16 28 06/12/17 04:00 28 06/12/17 04:00 73 06/12/17 04:00 98.1 76 16 158/92 99 Mechanical Ventilator 28 06/12/17 03:22 74 16 100 Mechanical Ventilator 28 06/12/17 03:16 28 06/12/17 03:16 72 16 98 Mechanical Ventilator 28 06/12/17 03:04 71 16 28 06/12/17 01:04 75 16 28 06/12/17 00:59 98.1 67 16 160/82 100 Mechanical Ventilator 28 06/12/17 00:00 73 06/12/17 00:00 28 06/11/17 22:48 71 16 100 Mechanical Ventilator 28 06/11/17 22:48 73 16 28 06/11/17 22:40 73 16 99 Mechanical Ventilator 28 06/11/17 22:40 28 06/11/17 20:51 67 16 28 06/11/17 20:00 98.1 69 16 154/79 99 Mechanical Ventilator 28 06/11/17 20:00 69 06/11/17 20:00 28 06/11/17 19:30 69 16 100 Mechanical Ventilator 28 06/11/17 19:15 68 16 99 Mechanical Ventilator 28 06/11/17 19:15 28 06/11/17 19:15 68 16 28 06/11/17 16:37 7 16 28 06/11/17 16:00 97.7 64 16 181/96 100 Mechanical Ventilator 28 06/11/17 16:00 28 06/11/17 16:00 61 06/11/17 15:34 62 16 100 Mechanical Ventilator 28 06/11/17 15:20 28 06/11/17 15:20 64 16 100 Mechanical Ventilator 28 06/11/17 15:20 62 16 28 06/11/17 12:56 66 16 28 06/11/17 12:00 28 06/11/17 12:00 97.7 60 16 165/85 100 Mechanical Ventilator 28 06/11/17 12:00 61 06/11/17 11:20 61 16 100 Mechanical Ventilator 28 06/11/17 11:11 63 16 100 Mechanical Ventilator 28 06/11/17 11:11 28 06/11/17 10:41 61 16 28 06/11/17 09:05 69 16 28 Height (Feet): 5 Height (Inches): 0.00 Weight (Pounds): 230 Objective General Appearance: WD/WN, alert Neck: supple Cardiovascular: regular rhythm Respiratory/Chest: lungs clear Abdomen: hypoactive bowel sounds, distended Edema: severe edema Neurologic: unresponsive OCHOA BISWAS Jun 12, 2017 08:19
[2017-06-12] MEDS: Heparin 5000 units/ml inj SUBQ SCH ×2 (09:00→21:00)
[2017-06-12] MEDS: Amiodarone 200mg tab GT SCH (10:18)
[2017-06-12] MEDS: Atenolol 12.5mg GT SCH (10:18)
[2017-06-12] MEDS: Allopurinol 100mg Tab GT SCH (10:18)
[2017-06-12] MEDS: SYSTANE ULTRA BOTH EYES SCH ×4 (10:19→21:14)
[2017-06-12] MEDS: [UNRECOGNIZED DRUG - OTHER] BOTH EYES SCH ×4 (10:21→21:14)
[2017-06-12] MEDS: [UNRECOGNIZED DRUG - OTHER] ORAL SCH ×2 (11:20→18:07)
[2017-06-12 12:00] VITALS: BP 161/92
--- NOTE | 2017-06-12 12:26 | Infectious Diseases Prog Note ---
"Assessment/Plan Assessment/Plan antibiotics : none A 1. klebsiella UTI s/p rx 2. leucocytosis resolved 3. respiratory failure 4. DM 5. HTN 6. anoxic brain injury 7. pericardial effusion 8. serratia | pseudomonas pneumonia s/p rx P 1. observe off antibiotics Subjective ROS Limited/Unobtainable: Yes Allergies: Coded Allergies: OLANZAPINE (Verified Allergy, Severe, RESP FAILURE, 11/25/13) VANCOMYCIN (Verified Allergy, Severe, 11/25/13) PIPERACILLIN (Verified Allergy, Intermediate, HIVES, 11/25/13) TAZOBACTAM (Verified Allergy, Intermediate, HIVES, 11/25/13) Objective Vital Signs Last 24 Hour Vital Signs Date Time Temp Pulse Resp B/P (MAP) Pulse Ox O2 Delivery O2 Flow Rate FiO2 06/12/17 10:52 75 16 28 06/12/17 10:52 28 06/12/17 10:52 75 16 100 Mechanical Ventilator 06/12/17 08:54 77 16 28 06/12/17 08:00 77 06/12/17 08:00 28 06/12/17 08:00 97.8 72 16 159/91 100 Mechanical Ventilator 06/12/17 07:21 72 16 100 Mechanical Ventilator 06/12/17 07:10 72 16 100 Mechanical Ventilator 28 06/12/17 07:10 28 06/12/17 07:10 72 16 28 06/12/17 05:02 75 16 28 06/12/17 04:00 28 06/12/17 04:00 73 06/12/17 04:00 98.1 76 16 158/92 99 Mechanical Ventilator 06/12/17 03:22 74 16 100 Mechanical Ventilator 06/12/17 03:16 28 06/12/17 03:16 72 16 98 Mechanical Ventilator 06/12/17 03:04 71 16 28 06/12/17 01:04 75 16 28 06/12/17 00:59 98.1 67 16 160/82 100 Mechanical Ventilator 06/12/17 00:00 73 06/12/17 00:00 28 06/11/17 22:48 71 16 100 Mechanical Ventilator 28 06/11/17 22:48 73 16 28 06/11/17 22:40 73 16 99 Mechanical Ventilator 28 06/11/17 22:40 28 06/11/17 20:51 67 16 28 06/11/17 20:00 98.1 69 16 154/79 99 Mechanical Ventilator 28 06/11/17 20:00 69 06/11/17 20:00 28 06/11/17 19:30 69 16 100 Mechanical Ventilator 28 06/11/17 19:15 68 16 99 Mechanical Ventilator 28 06/11/17 19:15 28 06/11/17 19:15 68 16 28 06/11/17 16:37 7 16 28 06/11/17 16:00 97.7 64 16 181/96 100 Mechanical Ventilator 28 06/11/17 16:00 28 06/11/17 16:00 61 06/11/17 15:34 62 16 100 Mechanical Ventilator 28 06/11/17 15:20 28 06/11/17 15:20 64 16 100 Mechanical Ventilator 28 06/11/17 15:20 62 16 28 06/11/17 12:56 66 16 28 Height (Feet): 5 Height (Inches): 0.00 Weight (Pounds): 230 HEENT: status post trach Respiratory/Chest: lungs clear Cardiovascular: normal rate, regular rhythm, no gallop/murmur Abdomen: soft, non tender, other - GT Extremities: other - + edema, right arm PICC ERIKA DICKERSON Jun 12, 2017 12:26"
--- NOTE | 2017-06-12 13:45 | Nephrology Progress Note ---
Assessment/Plan Assessment 1) Chronic VDRF 2) GELA 3) S/P septic shock 4) Fluid overload/CHF probably due to chronic diastolic CHF 5) CKD III Plan: Will Give Bumex 2 mg/ GT Ok to be discharged from my standpoint No need for dialysis Subjective Subjective She is still on the vent, had good diuresis, creat is still 1.2, no new development, Sandip cath was removed, she had good diuresis with Bumexc and Zaroxolyn, much less swollen Objective Objective Last 24 Hour Vital Signs Date Time Temp Pulse Resp B/P (MAP) Pulse Ox O2 Delivery O2 Flow Rate FiO2 06/12/17 13:30 76 16 28 06/12/17 11:01 75 16 100 Mechanical Ventilator 28 06/12/17 10:52 75 16 28 06/12/17 10:52 28 06/12/17 10:52 75 16 100 Mechanical Ventilator 28 06/12/17 08:54 77 16 28 06/12/17 08:00 77 06/12/17 08:00 28 06/12/17 08:00 97.8 72 16 159/91 100 Mechanical Ventilator 28 06/12/17 07:21 72 16 100 Mechanical Ventilator 28 06/12/17 07:10 72 16 100 Mechanical Ventilator 28 06/12/17 07:10 28 06/12/17 07:10 72 16 28 06/12/17 05:02 75 16 28 06/12/17 04:00 28 06/12/17 04:00 73 06/12/17 04:00 98.1 76 16 158/92 99 Mechanical Ventilator 28 06/12/17 03:22 74 16 100 Mechanical Ventilator 28 06/12/17 03:16 28 06/12/17 03:16 72 16 98 Mechanical Ventilator 28 06/12/17 03:04 71 16 28 06/12/17 01:04 75 16 28 06/12/17 00:59 98.1 67 16 160/82 100 Mechanical Ventilator 28 06/12/17 00:00 73 06/12/17 00:00 28 06/11/17 22:48 71 16 100 Mechanical Ventilator 28 06/11/17 22:48 73 16 28 06/11/17 22:40 73 16 99 Mechanical Ventilator 28 06/11/17 22:40 28 06/11/17 20:51 67 16 28 06/11/17 20:00 98.1 69 16 154/79 99 Mechanical Ventilator 28 06/11/17 20:00 69 06/11/17 20:00 28 06/11/17 19:30 69 16 100 Mechanical Ventilator 28 06/11/17 19:15 68 16 99 Mechanical Ventilator 28 06/11/17 19:15 28 06/11/17 19:15 68 16 28 06/11/17 16:37 7 16 28 06/11/17 16:00 97.7 64 16 181/96 100 Mechanical Ventilator 28 06/11/17 16:00 28 06/11/17 16:00 61 06/11/17 15:34 62 16 100 Mechanical Ventilator 28 06/11/17 15:20 28 06/11/17 15:20 64 16 100 Mechanical Ventilator 28 06/11/17 15:20 62 16 28 Height (Feet): 5 Height (Inches): 0.00 Weight (Pounds): 230 General Appearance: WD/WN, no apparent distress EENT: PERRL/EOMI, other - Trach on the vent Neck: non-tender, normal alignment, supple Cardiovascular: normal rate, regular rhythm Respiratory/Chest: decreased breath sounds Abdomen: normal bowel sounds, non tender, soft Neurologic: no motor/sensory deficits BIBI URENA Jun 12, 2017 13:45
[2017-06-12 16:00] VITALS: BP 166/82
[2017-06-12 17:01] LABS: BASOPHILS % (AUTO) 2.1 % (0.0-2.0); EOSINOPHILS % (AUTO) 2.6 % (0.0-3.0); LYMPHOCYTES % (AUTO) 16.4 % (20.0-45.0); MEAN CORPUSCULAR HEMOGLOBIN 29.6 PG (27.0-31.0); MEAN CORPUSCULAR HGB CONC 30.3 G/DL (32.0-36.0); MEAN CORPUSCULAR VOLUME 98 FL (80-99); MEAN PLATELET VOLUME 6.2 FL (6.5-10.1); MONOCYTES % (AUTO) 3.1 % (1.0-10.0); NEUTROPHILS % (AUTO) 75.9 % (45.0-75.0); PLATELET COUNT 463 K/UL (150-450); RED BLOOD COUNT 3.13 M/UL (4.20-5.40); RED CELL DISTRIBUTION WIDTH 19.2 % (11.6-14.8); WHITE BLOOD COUNT 9.4 K/UL (4.8-10.8)
[2017-06-12 17:21] LABS: ANION GAP 8 mmol/L (5-15); CALCIUM 9.4 MG/DL (8.5-10.1); CARBON DIOXIDE 27 MMOL/L (21-32); CHLORIDE 103 MMOL/L (98-107); CREATININE 1.2 MG/DL (0.55-1.30); GLOMERULAR FILTRATION RATE 45.5 mL/min (>60); POTASSIUM 4.7 MMOL/L (3.5-5.1); SODIUM 138 MMOL/L (136-145)
--- NOTE | 2017-06-12 18:51 | General Progress Note ---
Assessment/Plan Assessment/Plan Assessment - Encephalopathy - Resp failure - Trach - dysphagia - PEG - abnormal LFT--> Improving - edema / anasarca - abd distention due to ascites - no SBP on tap - UTI/PNA - leukocytosis --> Improved - azotemia --> improved - pericardial effusion - marked thrombocytosis - resolved - poor Px Recommendations - continue TF - f/u hepatitis serologies --> Negative - diurese as feasible - continue abx - d/c planning Subjective Allergies: Coded Allergies: OLANZAPINE (Verified Allergy, Severe, RESP FAILURE, 11/25/13) VANCOMYCIN (Verified Allergy, Severe, 11/25/13) PIPERACILLIN (Verified Allergy, Intermediate, HIVES, 11/25/13) TAZOBACTAM (Verified Allergy, Intermediate, HIVES, 11/25/13) Subjective d/w RN tolerating TF d/c planning noted d/w dynamicist Objective Last 24 Hour Vital Signs Date Time Temp Pulse Resp B/P (MAP) Pulse Ox O2 Delivery O2 Flow Rate FiO2 06/12/17 17:04 75 16 28 06/12/17 16:00 98.2 76 16 166/82 99 Mechanical Ventilator 06/12/17 16:00 75 06/12/17 16:00 28 06/12/17 15:40 76 16 100 Mechanical Ventilator 06/12/17 15:33 76 16 28 06/12/17 15:33 74 16 100 Mechanical Ventilator 06/12/17 15:33 28 06/12/17 13:30 76 16 28 06/12/17 12:00 64 06/12/17 12:00 97.7 71 16 161/92 100 Mechanical Ventilator 06/12/17 12:00 28 06/12/17 11:01 75 16 100 Mechanical Ventilator 06/12/17 10:52 75 16 28 06/12/17 10:52 28 06/12/17 10:52 75 16 100 Mechanical Ventilator 06/12/17 08:54 77 16 28 06/12/17 08:00 77 06/12/17 08:00 28 06/12/17 08:00 97.8 72 16 159/91 100 Mechanical Ventilator 06/12/17 07:21 72 16 100 Mechanical Ventilator 28 06/12/17 07:10 72 16 100 Mechanical Ventilator 28 06/12/17 07:10 28 06/12/17 07:10 72 16 28 06/12/17 05:02 75 16 28 06/12/17 04:00 28 06/12/17 04:00 73 06/12/17 04:00 98.1 76 16 158/92 99 Mechanical Ventilator 28 06/12/17 03:22 74 16 100 Mechanical Ventilator 28 06/12/17 03:16 28 06/12/17 03:16 72 16 98 Mechanical Ventilator 28 06/12/17 03:04 71 16 28 06/12/17 01:04 75 16 28 06/12/17 00:59 98.1 67 16 160/82 100 Mechanical Ventilator 28 06/12/17 00:00 73 06/12/17 00:00 28 06/11/17 22:48 71 16 100 Mechanical Ventilator 28 06/11/17 22:48 73 16 28 06/11/17 22:40 73 16 99 Mechanical Ventilator 28 06/11/17 22:40 28 06/11/17 20:51 67 16 28 06/11/17 20:00 98.1 69 16 154/79 99 Mechanical Ventilator 28 06/11/17 20:00 69 06/11/17 20:00 28 06/11/17 19:30 69 16 100 Mechanical Ventilator 28 06/11/17 19:15 68 16 99 Mechanical Ventilator 28 06/11/17 19:15 28 06/11/17 19:15 68 16 28 Intake and Output 06/12/17 06/13/17 19:00 07:00 Output Total 1000 ml Balance -1000 ml Output Urine Total 1000 ml # Bowel Movements 1 Laboratory Tests 06/12/17 16:30: White Blood Count 9.4, Red Blood Count 3.13L, Hemoglobin 9.3L, Hematocrit 30.6L , Mean Corpuscular Volume 98, Mean Corpuscular Hemoglobin 29.6, Mean Corpuscular Hemoglobin Concent 30.3L, Red Cell Distribution Width 19.2H, Platelet Count 463H, Mean Platelet Volume 6.2L, Neutrophils (%) (Auto) 75.9H, Lymphocytes (%) (Auto) 16.4L, Monocytes (%) (Auto) 3.1, Eosinophils (%) (Auto) 2.6, Basophils (%) (Auto) 2.1H, Sodium Level 138, Potassium Level 4.7, Chloride Level 103, Carbon Dioxide Level 27, Anion Gap 8, Blood Urea Nitrogen 74H, Creatinine 1.2, Estimat Glomerular Filtration Rate 45.5, Glucose Level 165H, Calcium Level 9.4 Height (Feet): 5 Height (Inches): 0.00 Weight (Pounds): 230 Objective Obese WW NCAT supple Chest: coarse BS RRR obese, firm and distended abd, (+) GT (++) edema / anasarca OBS JILL WHITNEY Jun 12, 2017 18:51
[2017-06-12 20:51] VITALS: BP 152/81
[2017-06-12] MEDS: Dyna-Hex 2% Top Sol 2oz TOPIC SCH (21:13)
[2017-06-13] VITALS (7 sets, daily range): BP systolic 156–165; BP diastolic 81–90
[2017-06-13] MEDS: NovoLOG Insulin Flexpen SUBQ SCH ×4 (00:06→18:02)
[2017-06-13] MEDS: Albuterol ud Inhalation HHN SCH ×6 (03:45→23:26)
[2017-06-13 06:04] LABS: BASOPHILS % (AUTO) 1.5 % (0.0-2.0); EOSINOPHILS % (AUTO) 3.8 % (0.0-3.0); LYMPHOCYTES % (AUTO) 16.4 % (20.0-45.0); MEAN CORPUSCULAR HEMOGLOBIN 30.6 PG (27.0-31.0); MEAN CORPUSCULAR HGB CONC 30.7 G/DL (32.0-36.0); MEAN CORPUSCULAR VOLUME 100 FL (80-99); MEAN PLATELET VOLUME 7.1 FL (6.5-10.1); MONOCYTES % (AUTO) 5.2 % (1.0-10.0); NEUTROPHILS % (AUTO) 73.2 % (45.0-75.0); PLATELET COUNT 480 K/UL (150-450); RED BLOOD COUNT 2.92 M/UL (4.20-5.40); RED CELL DISTRIBUTION WIDTH 19.8 % (11.6-14.8)
[2017-06-13 06:32] LABS: ALANINE AMINOTRANSFERASE 21 U/L (12-78); ALBUMIN/GLOBULIN RATIO 0.5 (1.0-2.7); ANION GAP 9 mmol/L (5-15); ASPARTATE AMINO TRANSFERASE 10 U/L (15-37); CALCIUM 9.5 MG/DL (8.5-10.1); CARBON DIOXIDE 28 MMOL/L (21-32); CHLORIDE 101 MMOL/L (98-107); CREATININE 1.1 MG/DL (0.55-1.30); GLOMERULAR FILTRATION RATE 50.3 mL/min (>60); POTASSIUM 4.3 MMOL/L (3.5-5.1); SODIUM 138 MMOL/L (136-145); TOTAL PROTEIN 7.4 G/DL (6.4-8.2)
[2017-06-13] MEDS: Ipratropium 0.02% Inh Soln 2.5ml UD HHN SCH ×5 (07:48→23:26)
--- NOTE | 2017-06-13 08:21 | Nephrology Progress Note ---
Assessment/Plan Assessment 1) Chronic VDRF 2) GELA is improving 3) S/P septic shock 4) Fluid overload/CHF probably due to chronic diastolic CHF 5) CKD III Plan: Will Give Bumex 2 mg/ GT BID Ok to be discharged from my standpoint No need for dialysis Subjective Subjective She is still on the vent, She is diuresing well, creat is 1.1, No obvious distress, less edematous Objective Objective Last 24 Hour Vital Signs Date Time Temp Pulse Resp B/P (MAP) Pulse Ox O2 Delivery O2 Flow Rate FiO2 06/13/17 08:02 75 16 100 Mechanical Ventilator 28 06/13/17 07:48 71 16 100 Mechanical Ventilator 28 06/13/17 07:48 28 06/13/17 07:47 71 16 28 06/13/17 05:24 78 17 28 06/13/17 04:00 98.5 76 16 165/85 99 Mechanical Ventilator 28 06/13/17 04:00 72 06/13/17 04:00 28 06/13/17 03:20 73 16 28 06/13/17 01:51 72 16 28 06/13/17 00:48 98.8 73 16 162/90 100 Mechanical Ventilator 28 06/13/17 00:00 74 06/12/17 23:55 76 17 100 Mechanical Ventilator 28 06/12/17 23:55 28 06/12/17 23:37 74 16 100 Mechanical Ventilator 28 06/12/17 23:35 73 16 28 06/12/17 21:02 76 17 28 06/12/17 20:51 98.1 75 16 152/81 98 Mechanical Ventilator 28 06/12/17 20:00 28 06/12/17 20:00 74 16 100 Mechanical Ventilator 28 06/12/17 20:00 28 06/12/17 20:00 77 06/12/17 19:49 76 16 100 Mechanical Ventilator 28 06/12/17 19:49 74 16 28 06/12/17 17:04 75 16 28 06/12/17 16:00 98.2 76 16 166/82 99 Mechanical Ventilator 28 06/12/17 16:00 75 06/12/17 16:00 28 06/12/17 15:40 76 16 100 Mechanical Ventilator 28 06/12/17 15:33 76 16 28 06/12/17 15:33 74 16 100 Mechanical Ventilator 28 06/12/17 15:33 28 06/12/17 13:30 76 16 28 06/12/17 12:00 64 06/12/17 12:00 97.7 71 16 161/92 100 Mechanical Ventilator 28 06/12/17 12:00 28 06/12/17 11:01 75 16 100 Mechanical Ventilator 28 06/12/17 10:52 75 16 28 06/12/17 10:52 28 06/12/17 10:52 75 16 100 Mechanical Ventilator 28 06/12/17 08:54 77 16 28 Laboratory Tests 06/12/17 16:30: White Blood Count 9.4, Red Blood Count 3.13L, Hemoglobin 9.3L, Hematocrit 30.6L , Mean Corpuscular Volume 98, Mean Corpuscular Hemoglobin 29.6, Mean Corpuscular Hemoglobin Concent 30.3L, Red Cell Distribution Width 19.2H, Platelet Count 463H, Mean Platelet Volume 6.2L, Neutrophils (%) (Auto) 75.9H, Lymphocytes (%) (Auto) 16.4L, Monocytes (%) (Auto) 3.1, Eosinophils (%) (Auto) 2.6, Basophils (%) (Auto) 2.1H, Sodium Level 138, Potassium Level 4.7, Chloride Level 103, Carbon Dioxide Level 27, Anion Gap 8, Blood Urea Nitrogen 74H, Creatinine 1.2, Estimat Glomerular Filtration Rate 45.5, Glucose Level 165H, Calcium Level 9.4 06/13/17 04:00: White Blood Count 8.0, Red Blood Count 2.92L, Hemoglobin 8.9L, Hematocrit 29.1L , Mean Corpuscular Volume 100H, Mean Corpuscular Hemoglobin 30.6, Mean Corpuscular Hemoglobin Concent 30.7L, Red Cell Distribution Width 19.8H, Platelet Count 480H, Mean Platelet Volume 7.1, Neutrophils (%) (Auto) 73.2, Lymphocytes (%) (Auto) 16.4L, Monocytes (%) (Auto) 5.2, Eosinophils (%) (Auto) 3.8H, Basophils (%) (Auto) 1.5, Sodium Level 138, Potassium Level 4.3, Chloride Level 101, Carbon Dioxide Level 28, Anion Gap 9, Blood Urea Nitrogen 70H, Creatinine 1.1, Estimat Glomerular Filtration Rate 50.3, Glucose Level 156H, Calcium Level 9.5, Total Bilirubin 0.4, Aspartate Amino Transf (AST/SGOT) 10L, Alanine Aminotransferase (ALT/SGPT) 21, Alkaline Phosphatase 122H, Total Protein 7.4, Albumin 2.6L, Globulin 4.8, Albumin/Globulin Ratio 0.5L Height (Feet): 5 Height (Inches): 0.00 Weight (Pounds): 230 General Appearance: WD/WN, no apparent distress Neck: non-tender, normal alignment, supple Cardiovascular: normal rate, regular rhythm Respiratory/Chest: decreased breath sounds, rhonchi - bilaterally Abdomen: normal bowel sounds, non tender, soft Extremities: moderate edema Neurologic: no motor/sensory deficits BIBI URENA Jun 13, 2017 08:21
[2017-06-13] MEDS: Heparin 5000 units/ml inj SUBQ SCH ×2 (09:00→21:00)
[2017-06-13] MEDS: Bumetanide 1mg tab GT SCH ×2 (09:39→17:58)
[2017-06-13] MEDS: Amiodarone 200mg tab GT SCH (09:40)
[2017-06-13] MEDS: Allopurinol 100mg Tab GT SCH (09:40)
[2017-06-13] MEDS: SYSTANE ULTRA BOTH EYES SCH ×4 (09:40→21:14)
[2017-06-13] MEDS: Atenolol 12.5mg GT SCH (09:40)
[2017-06-13] MEDS: [UNRECOGNIZED DRUG - OTHER] BOTH EYES SCH ×4 (09:41→21:14)
[2017-06-13] MEDS: [UNRECOGNIZED DRUG - OTHER] ORAL SCH ×2 (09:41→17:57)
--- NOTE | 2017-06-13 11:34 | Infectious Diseases Prog Note ---
"Assessment/Plan Assessment/Plan antibiotics : none A 1. klebsiella UTI s/p rx 2. leucocytosis resolved 3. respiratory failure 4. DM 5. HTN 6. anoxic brain injury 7. pericardial effusion 8. serratia | pseudomonas pneumonia s/p rx P 1. observe off antibiotics Subjective ROS Limited/Unobtainable: Yes Allergies: Coded Allergies: OLANZAPINE (Verified Allergy, Severe, RESP FAILURE, 11/25/13) VANCOMYCIN (Verified Allergy, Severe, 11/25/13) PIPERACILLIN (Verified Allergy, Intermediate, HIVES, 11/25/13) TAZOBACTAM (Verified Allergy, Intermediate, HIVES, 11/25/13) Objective Vital Signs Last 24 Hour Vital Signs Date Time Temp Pulse Resp B/P (MAP) Pulse Ox O2 Delivery O2 Flow Rate FiO2 06/13/17 08:55 73 16 28 06/13/17 08:02 75 16 100 Mechanical Ventilator 28 06/13/17 08:00 69 06/13/17 08:00 98.0 70 16 159/85 98 Mechanical Ventilator 28 06/13/17 08:00 28 06/13/17 07:48 71 16 100 Mechanical Ventilator 28 06/13/17 07:48 28 06/13/17 07:47 71 16 28 06/13/17 05:24 78 17 28 06/13/17 04:00 98.5 76 16 165/85 99 Mechanical Ventilator 28 06/13/17 04:00 72 06/13/17 04:00 28 06/13/17 03:20 73 16 28 06/13/17 01:51 72 16 28 06/13/17 00:48 98.8 73 16 162/90 100 Mechanical Ventilator 06/13/17 00:00 74 06/12/17 23:55 76 17 100 Mechanical Ventilator 28 06/12/17 23:55 28 06/12/17 23:37 74 16 100 Mechanical Ventilator 28 06/12/17 23:35 73 16 28 06/12/17 21:02 76 17 28 06/12/17 20:51 98.1 75 16 152/81 98 Mechanical Ventilator 28 06/12/17 20:00 28 06/12/17 20:00 74 16 100 Mechanical Ventilator 28 06/12/17 20:00 28 06/12/17 20:00 77 06/12/17 19:49 76 16 100 Mechanical Ventilator 28 06/12/17 19:49 74 16 28 06/12/17 17:04 75 16 28 06/12/17 16:00 98.2 76 16 166/82 99 Mechanical Ventilator 28 06/12/17 16:00 75 06/12/17 16:00 28 06/12/17 15:40 76 16 100 Mechanical Ventilator 28 06/12/17 15:33 76 16 28 06/12/17 15:33 74 16 100 Mechanical Ventilator 28 06/12/17 15:33 28 06/12/17 13:30 76 16 28 06/12/17 12:00 64 06/12/17 12:00 97.7 71 16 161/92 100 Mechanical Ventilator 28 06/12/17 12:00 28 Height (Feet): 5 Height (Inches): 0.00 Weight (Pounds): 230 HEENT: status post trach Respiratory/Chest: lungs clear Cardiovascular: normal rate, regular rhythm, no gallop/murmur Abdomen: soft, non tender, other - GT Extremities: other - + edema bilaterally, right arm PICC Laboratory Tests Test 06/12/17 16:30 06/13/17 04:00 White Blood Count 9.4 K/UL (4.8-10.8) 8.0 K/UL (4.8-10.8) Red Blood Count 3.13 M/UL (4.20-5.40) L 2.92 M/UL (4.20-5.40) L Hemoglobin 9.3 G/DL (12.0-16.0) L 8.9 G/DL (12.0-16.0) L Hematocrit 30.6 % (37.0-47.0) L 29.1 % (37.0-47.0) L Mean Corpuscular Volume 98 FL (80-99) 100 FL (80-99) H Mean Corpuscular Hemoglobin 29.6 PG (27.0-31.0) 30.6 PG (27.0-31.0) Mean Corpuscular Hemoglobin Concent 30.3 G/DL (32.0-36.0) L 30.7 G/DL (32.0-36.0) L Red Cell Distribution Width 19.2 % (11.6-14.8) H 19.8 % (11.6-14.8) H Platelet Count 463 K/UL (150-450) H 480 K/UL (150-450) H Mean Platelet Volume 6.2 FL (6.5-10.1) L 7.1 FL (6.5-10.1) Neutrophils (%) (Auto) 75.9 % (45.0-75.0) H 73.2 % (45.0-75.0) Lymphocytes (%) (Auto) 16.4 % (20.0-45.0) L 16.4 % (20.0-45.0) L Monocytes (%) (Auto) 3.1 % (1.0-10.0) 5.2 % (1.0-10.0) Eosinophils (%) (Auto) 2.6 % (0.0-3.0) 3.8 % (0.0-3.0) H Basophils (%) (Auto) 2.1 % (0.0-2.0) H 1.5 % (0.0-2.0) Sodium Level 138 MMOL/L (136-145) 138 MMOL/L (136-145) Potassium Level 4.7 MMOL/L (3.5-5.1) 4.3 MMOL/L (3.5-5.1) Chloride Level 103 MMOL/L (98-107) 101 MMOL/L (98-107) Carbon Dioxide Level 27 MMOL/L (21-32) 28 MMOL/L (21-32) Anion Gap 8 mmol/L (5-15) 9 mmol/L (5-15) Blood Urea Nitrogen 74 mg/dL (7-18) H 70 mg/dL (7-18) H Creatinine 1.2 MG/DL (0.55-1.30) 1.1 MG/DL (0.55-1.30) Estimat Glomerular Filtration Rate 45.5 mL/min (>60) 50.3 mL/min (>60) Glucose Level 165 MG/DL (74-106) H 156 MG/DL (74-106) H Calcium Level 9.4 MG/DL (8.5-10.1) 9.5 MG/DL (8.5-10.1) Total Bilirubin 0.4 MG/DL (0.2-1.0) Aspartate Amino Transf (AST/SGOT) 10 U/L (15-37) L Alanine Aminotransferase (ALT/SGPT) 21 U/L (12-78) Alkaline Phosphatase 122 U/L (46-116) H Total Protein 7.4 G/DL (6.4-8.2) Albumin 2.6 G/DL (3.4-5.0) L Globulin 4.8 g/dL Albumin/Globulin Ratio 0.5 (1.0-2.7) L ERIKA DICKERSON Jun 13, 2017 11:34"
[2017-06-13] MEDS: Dyna-Hex 2% Top Sol 2oz TOPIC SCH (21:14)
[2017-06-13] MEDS: Epogen (for non ESRD use) SUBQ SCH (21:23)
--- NOTE | 2017-06-13 22:40 | General Progress Note ---
Assessment/Plan Assessment/Plan Assessment - Encephalopathy - Resp failure - Trach - dysphagia - PEG - abnormal LFT--> Improving - edema / anasarca - abd distention due to ascites - no SBP on tap - UTI/PNA - leukocytosis --> Improved - azotemia --> improved - pericardial effusion - marked thrombocytosis - resolved - poor Px Recommendations - continue TF - f/u hepatitis serologies --> Negative - diurese as feasible - continue abx - d/c planning Subjective Allergies: Coded Allergies: OLANZAPINE (Verified Allergy, Severe, RESP FAILURE, 11/25/13) VANCOMYCIN (Verified Allergy, Severe, 11/25/13) PIPERACILLIN (Verified Allergy, Intermediate, HIVES, 11/25/13) TAZOBACTAM (Verified Allergy, Intermediate, HIVES, 11/25/13) Subjective d/w RN tolerating TF d/w trading specialist Objective Last 24 Hour Vital Signs Date Time Temp Pulse Resp B/P (MAP) Pulse Ox O2 Delivery O2 Flow Rate FiO2 06/13/17 21:08 75 16 100 Mechanical Ventilator 06/13/17 21:08 28 06/13/17 20:49 74 16 100 Mechanical Ventilator 06/13/17 20:48 73 16 28 06/13/17 20:00 98.1 78 16 159/81 100 Mechanical Ventilator 06/13/17 19:20 75 16 28 06/13/17 17:03 75 16 28 06/13/17 16:00 28 06/13/17 16:00 71 06/13/17 16:00 99.0 74 17 158/81 100 Mechanical Ventilator 06/13/17 15:15 72 16 100 Mechanical Ventilator 06/13/17 14:59 28 06/13/17 14:59 72 16 100 Mechanical Ventilator 06/13/17 14:56 72 16 28 06/13/17 13:20 70 16 28 06/13/17 12:54 69 06/13/17 12:00 98.6 69 16 156/90 99 Mechanical Ventilator 06/13/17 12:00 28 06/13/17 11:50 74 16 100 Mechanical Ventilator 06/13/17 11:32 28 06/13/17 11:32 70 16 99 Mechanical Ventilator 28 06/13/17 11:30 71 16 28 06/13/17 08:55 73 16 28 06/13/17 08:02 75 16 100 Mechanical Ventilator 28 06/13/17 08:00 69 06/13/17 08:00 98.0 70 16 159/85 98 Mechanical Ventilator 28 06/13/17 08:00 28 06/13/17 07:48 71 16 100 Mechanical Ventilator 28 06/13/17 07:48 28 06/13/17 07:47 71 16 28 06/13/17 05:24 78 17 28 06/13/17 04:00 98.5 76 16 165/85 99 Mechanical Ventilator 28 06/13/17 04:00 72 06/13/17 04:00 28 06/13/17 03:20 73 16 28 06/13/17 01:51 72 16 28 06/13/17 00:48 98.8 73 16 162/90 100 Mechanical Ventilator 06/13/17 00:00 74 06/12/17 23:55 76 17 100 Mechanical Ventilator 28 06/12/17 23:55 28 06/12/17 23:37 74 16 100 Mechanical Ventilator 28 06/12/17 23:35 73 16 28 Intake and Output 06/12/17 06/13/17 19:00 07:00 Intake Total 1070 ml 700 ml Output Total 1000 ml 680 ml Balance 70 ml 20 ml Free Water 300 ml 100 ml Tube Feeding 600 ml 500 ml Other 170 ml 100 ml Output Urine Total 1000 ml 680 ml # Bowel Movements 1 Laboratory Tests 06/13/17 04:00: White Blood Count 8.0, Red Blood Count 2.92L, Hemoglobin 8.9L, Hematocrit 29.1L , Mean Corpuscular Volume 100H, Mean Corpuscular Hemoglobin 30.6, Mean Corpuscular Hemoglobin Concent 30.7L, Red Cell Distribution Width 19.8H, Platelet Count 480H, Mean Platelet Volume 7.1, Neutrophils (%) (Auto) 73.2, Lymphocytes (%) (Auto) 16.4L, Monocytes (%) (Auto) 5.2, Eosinophils (%) (Auto) 3.8H, Basophils (%) (Auto) 1.5, Sodium Level 138, Potassium Level 4.3, Chloride Level 101, Carbon Dioxide Level 28, Anion Gap 9, Blood Urea Nitrogen 70H, Creatinine 1.1, Estimat Glomerular Filtration Rate 50.3, Glucose Level 156H, Calcium Level 9.5, Total Bilirubin 0.4, Aspartate Amino Transf (AST/SGOT) 10L, Alanine Aminotransferase (ALT/SGPT) 21, Alkaline Phosphatase 122H, Total Protein 7.4, Albumin 2.6L, Globulin 4.8, Albumin/Globulin Ratio 0.5L Height (Feet): 5 Height (Inches): 0.00 Weight (Pounds): 230 Objective Obese WW NCAT supple Chest: coarse BS RRR obese, firm and distended abd, (+) GT (++) edema / anasarca OBS JILL WHITNEY Jun 13, 2017 22:40
[2017-06-14] VITALS: BP 166/86
[2017-06-14] MEDS: Albuterol ud Inhalation HHN SCH ×5 (03:42→18:45)
[2017-06-14] MEDS: Ipratropium 0.02% Inh Soln 2.5ml UD HHN SCH ×5 (03:42→18:45)
[2017-06-14 04:00] VITALS: BP 152/76
[2017-06-14 04:48] LABS: BASOPHILS % (AUTO) 1.2 % (0.0-2.0); EOSINOPHILS % (AUTO) 2.8 % (0.0-3.0); LYMPHOCYTES % (AUTO) 10.3 % (20.0-45.0); MEAN CORPUSCULAR HEMOGLOBIN 31.4 PG (27.0-31.0); MEAN CORPUSCULAR HGB CONC 31.4 G/DL (32.0-36.0); MEAN CORPUSCULAR VOLUME 100 FL (80-99); MEAN PLATELET VOLUME 7.2 FL (6.5-10.1); MONOCYTES % (AUTO) 6.3 % (1.0-10.0); NEUTROPHILS % (AUTO) 79.3 % (45.0-75.0); PLATELET COUNT 512 K/UL (150-450); RED BLOOD COUNT 2.88 M/UL (4.20-5.40); RED CELL DISTRIBUTION WIDTH 19.3 % (11.6-14.8); WHITE BLOOD COUNT 8.6 K/UL (4.8-10.8)
[2017-06-14 05:01] LABS: ANION GAP 10 mmol/L (5-15); CALCIUM 9.6 MG/DL (8.5-10.1); CARBON DIOXIDE 27 MMOL/L (21-32); CHLORIDE 100 MMOL/L (98-107); CREATININE 1.1 MG/DL (0.55-1.30); GLOMERULAR FILTRATION RATE 50.3 mL/min (>60); SODIUM 137 MMOL/L (136-145)
[2017-06-14] MEDS: NovoLOG Insulin Flexpen SUBQ SCH ×4 (06:04→17:33)
[2017-06-14 08:00] VITALS: BP 151/78
[2017-06-14] MEDS: [UNRECOGNIZED DRUG - OTHER] BOTH EYES SCH ×4 (08:54→20:34)
[2017-06-14] MEDS: [UNRECOGNIZED DRUG - OTHER] ORAL SCH ×2 (08:54→17:36)
--- NOTE | 2017-06-14 08:55 | General Progress Note ---
Assessment/Plan Assessment/Plan Assessment - Encephalopathy - Resp failure - Trach - dysphagia - PEG - abnormal LFT--> Improving - edema / anasarca - abd distention due to ascites - no SBP on tap - UTI/PNA - leukocytosis --> Improved - azotemia --> improved - pericardial effusion - marked thrombocytosis - resolved - poor Px Recommendations - continue TF - f/u hepatitis serologies --> Negative - diurese as feasible - elevate HOB - continue abx - d/c planning Subjective Allergies: Coded Allergies: OLANZAPINE (Verified Allergy, Severe, RESP FAILURE, 11/25/13) VANCOMYCIN (Verified Allergy, Severe, 11/25/13) PIPERACILLIN (Verified Allergy, Intermediate, HIVES, 11/25/13) TAZOBACTAM (Verified Allergy, Intermediate, HIVES, 11/25/13) Subjective d/w RN tolerating TF d/w canopy inspector Objective Last 24 Hour Vital Signs Date Time Temp Pulse Resp B/P (MAP) Pulse Ox O2 Delivery O2 Flow Rate FiO2 06/14/17 08:12 83 16 99 Mechanical Ventilator 06/14/17 07:52 79 16 99 Mechanical Ventilator 06/14/17 07:10 81 16 28 06/14/17 05:16 85 16 28 06/14/17 04:00 28 06/14/17 04:00 79 06/14/17 04:00 98.7 83 16 152/76 99 Mechanical Ventilator 06/14/17 03:44 85 16 100 Mechanical Ventilator 28 06/14/17 03:44 28 06/14/17 03:43 81 16 100 Mechanical Ventilator 28 06/14/17 03:42 81 16 28 06/14/17 01:54 82 16 28 06/14/17 00:00 28 06/14/17 00:00 88 06/14/17 00:00 99.0 88 16 166/86 98 Mechanical Ventilator 28 06/13/17 23:37 77 16 100 Mechanical Ventilator 28 06/13/17 23:37 28 06/13/17 23:27 77 16 28 06/13/17 23:26 77 16 100 Mechanical Ventilator 28 06/13/17 21:08 75 16 100 Mechanical Ventilator 28 06/13/17 21:08 28 06/13/17 20:49 74 16 100 Mechanical Ventilator 28 06/13/17 20:48 73 16 28 06/13/17 20:00 78 12/20/17 20:00 28 06/13/17 20:00 98.1 78 16 159/81 100 Mechanical Ventilator 28 06/13/17 19:20 75 16 28 06/13/17 17:03 75 16 28 06/13/17 16:00 28 06/13/17 16:00 71 06/13/17 16:00 99.0 74 17 158/81 100 Mechanical Ventilator 28 06/13/17 15:15 72 16 100 Mechanical Ventilator 28 06/13/17 14:59 28 06/13/17 14:59 72 16 100 Mechanical Ventilator 28 06/13/17 14:56 72 16 28 06/13/17 13:20 70 16 28 06/13/17 12:54 69 06/13/17 12:00 98.6 69 16 156/90 99 Mechanical Ventilator 28 06/13/17 12:00 28 06/13/17 11:50 74 16 100 Mechanical Ventilator 28 06/13/17 11:32 28 06/13/17 11:32 70 16 99 Mechanical Ventilator 28 06/13/17 11:30 71 16 28 06/13/17 08:55 73 16 28 Intake and Output 06/13/17 06/14/17 19:00 07:00 Intake Total 1040 ml 500 ml Output Total 716 ml 700 ml Balance 324 ml -200 ml Free Water 200 ml Tube Feeding 600 ml 500 ml Other 240 ml Output Urine Total 715 ml 700 ml Stool Total 1 ml Laboratory Tests 06/14/17 04:00: White Blood Count 8.6, Red Blood Count 2.88L, Hemoglobin 9.0L, Hematocrit 28.8L , Mean Corpuscular Volume 100H, Mean Corpuscular Hemoglobin 31.4H, Mean Corpuscular Hemoglobin Concent 31.4L, Red Cell Distribution Width 19.3H, Platelet Count 512H, Mean Platelet Volume 7.2, Neutrophils (%) (Auto) 79.3H, Lymphocytes (%) (Auto) 10.3L, Monocytes (%) (Auto) 6.3, Eosinophils (%) (Auto) 2.8, Basophils (%) (Auto) 1.2, Sodium Level 137, Potassium Level 4.0, Chloride Level 100, Carbon Dioxide Level 27, Anion Gap 10, Blood Urea Nitrogen 74H, Creatinine 1.1, Estimat Glomerular Filtration Rate 50.3, Glucose Level 184H, Calcium Level 9.6 Height (Feet): 5 Height (Inches): 0.00 Weight (Pounds): 221 Objective Obese WW NCAT supple Chest: coarse BS RRR obese, firm and distended abd, (+) GT (++) edema / anasarca OBS JILL WHITNEY Jun 14, 2017 08:55
[2017-06-14] MEDS: Atenolol 12.5mg GT SCH (08:56)
[2017-06-14] MEDS: Allopurinol 100mg Tab GT SCH (08:56)
[2017-06-14] MEDS: Amiodarone 200mg tab GT SCH (08:56)
[2017-06-14] MEDS: Bumetanide 1mg tab GT SCH ×2 (08:57→17:41)
[2017-06-14] MEDS: SYSTANE ULTRA BOTH EYES SCH ×4 (08:57→20:34)
[2017-06-14] MEDS: Heparin 5000 units/ml inj SUBQ SCH ×2 (08:58→20:32)
--- NOTE | 2017-06-14 09:07 | Infectious Diseases Prog Note ---
Assessment/Plan Assessment/Plan A 1. klebsiella UTI treated 2. leucocytosis resolved 3. VDRF 4. DM 5. HPN 6. anoxic brain injury 7. Anasarca 8. Pericardial effusion 9. ascites P 1. Observe off antibiotic Subjective ROS Limited/Unobtainable: Yes Allergies: Coded Allergies: OLANZAPINE (Verified Allergy, Severe, RESP FAILURE, 11/25/13) VANCOMYCIN (Verified Allergy, Severe, 11/25/13) PIPERACILLIN (Verified Allergy, Intermediate, HIVES, 11/25/13) TAZOBACTAM (Verified Allergy, Intermediate, HIVES, 11/25/13) Objective Vital Signs Last 24 Hour Vital Signs Date Time Temp Pulse Resp B/P (MAP) Pulse Ox O2 Delivery O2 Flow Rate FiO2 06/14/17 08:12 83 16 99 Mechanical Ventilator 06/14/17 07:52 79 16 99 Mechanical Ventilator 06/14/17 07:10 81 16 28 06/14/17 05:16 85 16 28 06/14/17 04:00 28 06/14/17 04:00 79 06/14/17 04:00 98.7 83 16 152/76 99 Mechanical Ventilator 06/14/17 03:44 85 16 100 Mechanical Ventilator 28 06/14/17 03:44 28 06/14/17 03:43 81 16 100 Mechanical Ventilator 28 06/14/17 03:42 81 16 28 06/14/17 01:54 82 16 28 06/14/17 00:00 28 06/14/17 00:00 88 06/14/17 00:00 99.0 88 16 166/86 98 Mechanical Ventilator 06/13/17 23:37 77 16 100 Mechanical Ventilator 28 06/13/17 23:37 28 06/13/17 23:27 77 16 28 06/13/17 23:26 77 16 100 Mechanical Ventilator 28 06/13/17 21:08 75 16 100 Mechanical Ventilator 28 06/13/17 21:08 28 06/13/17 20:49 74 16 100 Mechanical Ventilator 28 06/13/17 20:48 73 16 28 06/13/17 20:00 78 06/13/17 20:00 28 06/13/17 20:00 98.1 78 16 159/81 100 Mechanical Ventilator 28 06/13/17 19:20 75 16 28 06/13/17 17:03 75 16 28 06/13/17 16:00 28 06/13/17 16:00 71 06/13/17 16:00 99.0 74 17 158/81 100 Mechanical Ventilator 28 06/13/17 15:15 72 16 100 Mechanical Ventilator 06/13/17 14:59 28 06/13/17 14:59 72 16 100 Mechanical Ventilator 28 06/13/17 14:56 72 16 28 06/13/17 13:20 70 16 28 06/13/17 12:54 69 06/13/17 12:00 98.6 69 16 156/90 99 Mechanical Ventilator 28 06/13/17 12:00 28 06/13/17 11:50 74 16 100 Mechanical Ventilator 28 06/13/17 11:32 28 06/13/17 11:32 70 16 99 Mechanical Ventilator 28 06/13/17 11:30 71 16 28 Height (Feet): 5 Height (Inches): 0.00 Weight (Pounds): 221 General Appearance: no acute distress HEENT: status post trach Respiratory/Chest: lungs clear Cardiovascular: normal rate Abdomen: soft, non tender, other - GT feeding Extremities: other - right arm PICC line, decreasing edema Neurologic/Psychiatric: aphasia Laboratory Tests Test 06/14/17 04:00 White Blood Count 8.6 K/UL (4.8-10.8) Red Blood Count 2.88 M/UL (4.20-5.40) L Hemoglobin 9.0 G/DL (12.0-16.0) L Hematocrit 28.8 % (37.0-47.0) L Mean Corpuscular Volume 100 FL (80-99) H Mean Corpuscular Hemoglobin 31.4 PG (27.0-31.0) H Mean Corpuscular Hemoglobin Concent 31.4 G/DL (32.0-36.0) L Red Cell Distribution Width 19.3 % (11.6-14.8) H Platelet Count 512 K/UL (150-450) H Mean Platelet Volume 7.2 FL (6.5-10.1) Neutrophils (%) (Auto) 79.3 % (45.0-75.0) H Lymphocytes (%) (Auto) 10.3 % (20.0-45.0) L Monocytes (%) (Auto) 6.3 % (1.0-10.0) Eosinophils (%) (Auto) 2.8 % (0.0-3.0) Basophils (%) (Auto) 1.2 % (0.0-2.0) Sodium Level 137 MMOL/L (136-145) Potassium Level 4.0 MMOL/L (3.5-5.1) Chloride Level 100 MMOL/L (98-107) Carbon Dioxide Level 27 MMOL/L (21-32) Anion Gap 10 mmol/L (5-15) Blood Urea Nitrogen 74 mg/dL (7-18) H Creatinine 1.1 MG/DL (0.55-1.30) Estimat Glomerular Filtration Rate 50.3 mL/min (>60) Glucose Level 184 MG/DL (74-106) H Calcium Level 9.6 MG/DL (8.5-10.1) Current Medications Medications (Trade) Dose Ordered Sig/Alex Route PRN Reason Start Time Stop Time Status Last Admin Dose Admin Acetaminophen (Tylenol) 650 mg Q6H PRN GT Mild Pain/Temp > 100.5 05/30/17 01:15 06/22/17 19:14 Albuterol Sulfate (Proventil) 2.5 mg Q4HRT HHN 06/13/17 03:45 06/18/17 03:44 06/14/17 07:51 Allopurinol (Zyloprim) 100 mg DAILY GT 06/05/17 09:00 07/05/17 08:59 06/14/17 08:56 Amiodarone HCl (Cordarone) 200 mg DAILY GT 06/09/17 09:00 06/26/17 20:59 06/14/17 08:56 Atenolol (Tenormin) 12.5 mg DAILY GT 05/30/17 09:00 06/24/17 10:59 06/14/17 08:56 Bisacodyl (Dulcolax) 5 mg DAILYPRN PRN RECTAL Constipation 05/29/17 20:30 06/22/17 20:29 Bumetanide (Bumex) 2 mg BID GT 06/12/17 18:00 07/11/17 16:59 06/14/17 08:57 Chlorhexidine Gluconate (Rubina-Hex 2%) 1 applic DAILY@1999 TOPIC 05/29/17 20:00 06/24/17 19:59 06/13/17 21:14 Dextrose (Dextrose 50%) STAT PRN IV Hypoglycemia 05/30/17 08:30 06/23/17 08:29 Epoetin Amadou (Procrit (for non ESRD use)) 7,500 units SUN-SUN-SUN SUBQ 06/04/17 21:00 07/04/17 20:59 06/13/17 21:23 Heparin Sodium (Porcine) (Heparin 5000 units/ml) 5,000 units EVERY 12 HOURS SUBQ 05/29/17 21:00 06/22/17 08:59 06/11/17 20:50 Insulin Aspart (NovoLOG) EVERY 6 HOURS SUBQ 05/30/17 00:00 06/23/17 11:29 06/14/17 06:04 Ipratropium Cerrillos (Atrovent) 500 mcg Q4HRT HHN 06/13/17 07:00 06/18/17 06:59 06/14/17 07:51 Lansoprazole (Prevacid) 30 mg DAILY GT 05/31/17 09:00 06/30/17 08:59 06/14/17 08:56 Levothyroxine Sodium (Synthroid) 75 mcg ACBREAKFAST GT 05/30/17 06:30 06/21/17 06:29 06/14/17 06:04 Levothyroxine Sodium (Synthroid) 100 mcg ACBREAKFAST GT 05/30/17 06:30 06/21/17 06:29 06/14/17 06:04 Patient Own Medication (Patient's Own Med) 1 ea BID ORAL 06/12/17 11:00 07/12/17 10:59 06/14/17 08:54 Patient Own Medication (Patient's Own Med) 1 ea QID BOTH EYES 05/29/17 21:00 06/28/17 17:59 06/14/17 08:57 Patient Own Medication (Patient's Own Med) 1 ea QID BOTH EYES 05/29/17 21:00 06/22/17 20:59 06/14/17 08:54 EPIFANIO NGUYEN Jun 14, 2017 09:07
[2017-06-14 12:00] VITALS: BP 147/80
[2017-06-14] MEDS ORDERED: Flu Vaccine Quadrivalent 0.5ml IM ONE (14:00)
[2017-06-14] MEDS ORDERED: Sterile Water Irrig 1000ml IRRIG ONE ×2 (15:43→16:00)
[2017-06-14] MEDS ORDERED: NS 500ML ONE ×2 (15:43→16:00)
[2017-06-14 16:00] VITALS: BP 162/91
--- NOTE | 2017-06-14 18:15 | Discharge Summary ---
DATE OF ADMISSION: 05/21/2017 DATE OF DISCHARGE: 06/14/2017 ADMISSION DIAGNOSES: 1. Sepsis. 2. Pericardial effusion. 3. Chronic respiratory failure. 4. Encephalopathy. 5. History of hypertension. DISCHARGE DIAGNOSES: 1. Sepsis. 2. Pericardial effusion, now resolved. 3. Chronic respiratory failure. 4. Encephalopathy. 5. History of hypertension. 6. Acute renal failure, improved. 7. Congestive heart failure. 8. Klebsiella urinary tract infection. 9. Diabetes. HISTORY OF PRESENT ILLNESS AND HOSPITAL COURSE: The patient is a pleasant female, who was admitted with complaints of sepsis. She was initially in the intensive care unit where she was placed on pressors and broad-spectrum IV antibiotics. Cultures were followed and antibiotics were adjusted. She was maintained on ventilatory support. She developed progressive edema and acute renal failure. She did briefly require hemodialysis. She had an echo that showed a large pericardial effusion, no tamponade, there was suspicion initially for possible infected pericardial effusion. Attempts to transfer the patient were unsuccessful. The patient received broad-spectrum IV antibiotics and before discharge, the patient's pericardial effusion resolved. She was stabilized off dialysis and diuresed well with Bumex. The patient had completed all of her antibiotics while in-house. She will be discharged home with her family. She will have weekly laboratories. DISCHARGE MEDICATIONS: Please see discharge medication list for discharge medications. DIET: G-tube feedings. ACTIVITIES: Ad-yanni. FOLLOWUP: The patient will be followed by her PMD, Dr. Evans next week. Pito Jones M.D. DR: gT JOB#: [id number] CC:
[2017-06-14 20:00] VITALS: BP 165/90
[2017-06-14] MEDS: Dyna-Hex 2% Top Sol 2oz TOPIC SCH (20:00)
[2017-06-14] MEDS ORDERED: NS 275ml ONE (21:59)
== END 2017-06-14 22:00 | disposition home or self-care (01) | DRG 870 ==
LOC: EDBD 13:03 → EMR 13:42 → 2W 13:47 → EDBEDREQ 14:05 → 2W 19:02 → ICU 05-23 17:25 → 2W 05-29 18:40
PROC: 5A1955Z Respiratory Ventilation, Greater than 96 Consecutive Hours (ICD-10-PCS; principal; 2017-05-21)
PROC: B548ZZA Ultrasonography of Superior Vena Cava, Guidance (ICD-10-PCS; 2017-05-23)
PROC: 02HV33Z Insertion of Infusion Device into Superior Vena Cava, Percutaneous Approach (ICD-10-PCS; 2017-05-23)
PROC: 0W9G3ZZ Drainage of Peritoneal Cavity, Percutaneous Approach (ICD-10-PCS; 2017-05-25)
PROC: 5A1D70Z Performance of Urinary Filtration, Intermittent, Less than 6 Hours Per Day (ICD-10-PCS; 2017-05-26)
PROC: 0BC48ZZ Extirpation of Matter from Right Upper Lobe Bronchus, Via Natural or Artificial Opening Endoscopic (ICD-10-PCS; 2017-06-04)
PROC: 0BC88ZZ Extirpation of Matter from Left Upper Lobe Bronchus, Via Natural or Artificial Opening Endoscopic (ICD-10-PCS; 2017-06-04)
DX: A41.9 Sepsis, unspecified organism (principal); N17.0 Acute kidney failure with tubular necrosis; K72.00 Acute and subacute hepatic failure without coma; R65.21 Severe sepsis with septic shock; E43 Unspecified severe protein-calorie malnutrition; G93.49 Other encephalopathy; J96.10 Chronic respiratory failure, unspecified whether with hypoxia or hypercapnia; J15.1 Pneumonia due to Pseudomonas; I50.33 Acute on chronic diastolic (congestive) heart failure; R18.8 Other ascites; I31.3 Pericardial effusion (noninflammatory); N39.0 Urinary tract infection, site not specified; I13.0 Hypertensive heart and chronic kidney disease with heart failure and stage 1 through stage 4 chronic kidney disease, or unspecified chronic kidney disease; G93.1 Anoxic brain damage, not elsewhere classified; J98.11 Atelectasis; Z99.11 Dependence on respirator [ventilator] status; E87.1 Hypo-osmolality and hyponatremia; Z93.0 Tracheostomy status; Z68.29 Body mass index [BMI] 29.0-29.9, adult; Z93.1 Gastrostomy status; E87.5 Hyperkalemia; I47.9 Paroxysmal tachycardia, unspecified; E11.22 Type 2 diabetes mellitus with diabetic chronic kidney disease; N18.3 Chronic kidney disease, stage 3 (moderate); Z87.01 Personal history of pneumonia (recurrent); E03.9 Hypothyroidism, unspecified; D64.9 Anemia, unspecified; J44.9 Chronic obstructive pulmonary disease, unspecified; R13.10 Dysphagia, unspecified; I48.0 Paroxysmal atrial fibrillation; K74.60 Unspecified cirrhosis of liver; E83.39 Other disorders of phosphorus metabolism; Z23 Encounter for immunization
CPT/HCPCS: 31645; 36415; 36569; 36600; 71010; 71250; 74000; 74176; 76700; 76775; 76937; 76942; 78710; 80048; 80053; 80061; 80076; 81001; 81003; 81050; 82248; 82550; 82607; 82728; 82746; 82803; 82962; 82977; 83036; 83540; 83550; 83605; 83690; 83735; 83880; 83930; 83935; 84100; 84156; 84300; 84443; 84484; 84550; 85007; 85025; 85610; 85730; 86140; 86705; 86709; 86803; 86850; 86870; 86880; 86900; 86901; 86904; 86920; 87040; 87070; 87086; 87181; 87205; 87324; 87340; 88104; 89051; 90630; 93005; 93306; 94002; 94003; 94640; 94664; A9503; C9399; J0282; J1815; J7620; J8499

== ENCOUNTER 2019-03-11 10:35 | Inpatient (IN) | payer MEDICARE, MEDICAID ==
[~2019-03-11] VITALS: Ht 162.6 cm; Wt 69.9 kg
[~2019-03-11 10:35] MED LIST: ACETAMINOP160 MG/5 M GT; ALBUTEROL2.5 MG/3 M INH; ATENOLOL25 MG GT; BENEFIBER1 EACH GT; CATAPRES0.1 MG GT; CHLORTHALIDONE25 MG GT; IBEROGAST GT; LORAZEPAM0.5 MG GT; MAGIC BULLET10 MG RC; MULTI-VITAMIN1 EACH GT; NOVOLIN R100 UNIT/1 SUBQ; NOVOLOG100 UNIT/3 SUBQ; REFRESH P.M. O3.5 GM OP; SYNTHROID150 MCG GT; SYSTANE 0.3-0.1 EAC1 OP; TERAZOSIN HCL1 MG GT; UBIQUINOL100 MG GT; VICODIN 5-3001 EACH GT
[2019-03-11] MEDS ORDERED: FLORASTOR250 MG GT (10:45)
[2019-03-11] MEDS ORDERED: SILVER SULFADIA50 GM TP (10:45)
[2019-03-11] MEDS ORDERED: LANTUS SOL100 UNIT/1 SUBQ ×2 (10:45→16:04)
[2019-03-11] MEDS ORDERED: CARVEDILOL12.5 MG GT (10:45)
[2019-03-11] MEDS ORDERED: NEPHROVITE1 TAB GT (10:45)
[2019-03-11] MEDS ORDERED: HIBICLENS118 ML TP (10:45)
[2019-03-11] MEDS ORDERED: IPRATROPIU0.2 MG/1 M HHN ×2 (10:45→16:04)
--- NOTE | 2019-03-11 10:50 | NUR ---
RESPIRATORY NOTE: Received pt on trach Portex cuffed size 8.0 XLT in ED, with the current vent settings: AC 12-450ml-35%FiO2- peep 5. Pt is trach dependent, obtunded, unable to follow commands. Miguel rhonchi breath sounds heard upon auscultation, orally suctioned small amount of thick/thin/ frothy white clear secretions without incidents. Family member and home day care provider at bedside ,and request not to suction pt through the inline suction. RT only assist with tracheal suction, home day care provider will do all the tracheal suction with Red Huan tube. RN and MD aware. Pt is resting comfortably in bed, no SOB or resp distress noted. Alarms are set and audible, vent is plugged into the red outlet, ambu bag and trach spare kit at bedside. Vent circuits and suction tube are patent, secured and out of way. Will continue to monitor and suction pt q2h and as needed.
--- NOTE | 2019-03-11 11:06 | NUR ---
ED Nurse Note: PT BROUGHT IN TO ER BY AMBULANCE FROM HOME. PT'S SISTER AT BEDSIDE. PT IS AOX0 AND NONVERBAL WHICH IS BASELINE PER SISTER WHO IS THE PT'S CONSERVATOR. PER PT'S SISTER, PT WAS BROUGHT IN TO ER TODAY DUE TO FECAL IMPACTION. PT'S SISTER STATES THAT COLACE AND MIRALAX HAVE BOTH BEEN USED BUT WITHOUT MUCH RELIEF. PT PRESENTS WITH CLAMPED GTUBE TO LEFT UPPER QUADRANT ABDOMEN. DIALYSIS PORT TO LEFT UPPER CHEST WHICH IS ACCESSED EVERY SUNDAY, SUNDAY, SUNDAY, SUNDAY AND SUNDAY AT HOME. PT HAS A XLT TRACH SIZE 8 AND IS VENT DEPENDENT. VENT SETTINGS: AC 12 TV 450 PEEP 5 FiO2 35% VSS STABLE AT THIS TIME.
[2019-03-11 11:10] VITALS: BP 116/68
[2019-03-11] MEDS ORDERED: Omnipaque-300 100ml vial INJ PRN (11:15)
--- NOTE | 2019-03-11 11:19 | NUR ---
ED Nurse Note: UA ORDERED BY DR DAS. PT'S SISTER STATES PT NO LONGER MAKES URINE. DR DAS AWARE. UA WILL BE CANCELLED.
--- NOTE | 2019-03-11 11:20 | Emergency Room Report ---
History of Present Illness General Chief Complaint: General Complaint Source: Patient Present Illness HPI This patient is brought in from home by her sister and her private nurse. The patient has a history of quadriplegia secondary to anoxic brain injury. She is ventilator dependent and G-tube dependent. She is accompanied by her sister who with her private nurse are the primary care givers. She presents today for concern of fecal impaction. The sister of the patient reports that she is on a bowel regimen that entails bowel stimulation, laxatives, enemas. She states that over the past 2 weeks there has been ongoing issues with only watery stool output. She is undergone saline enemas several times. She is been on lactulose and MiraLAX. The only result has been some watery stool but no formed or significant amount of stool. She did get an abdomen x-ray on February 27 that showed a fecal impaction. There is been high residuals in the stomach also over this time. There is been no other complaints. There is no vomiting or fever. Allergies: Coded Allergies: OLANZAPINE (Verified Allergy, Severe, RESP FAILURE, 11/25/13) VANCOMYCIN (Verified Allergy, Severe, 11/25/13) PIPERACILLIN (Verified Allergy, Intermediate, HIVES, 11/25/13) TAZOBACTAM (Verified Allergy, Intermediate, HIVES, 11/25/13) Patient History Past Medical History: see triage record, HTN, renal disease, dialysis, other - Quadraplegia, Hypothyroid Past Surgical History: other - TRACH, G-tube Social History: Denies: smoking, alcohol use, drug use Now: No Reviewed Nursing Documentation: PMH: Agreed; PSxH: Agreed Nursing Documentation-PM Past Medical History: No History, Except For Hx Cardiac Problems: No Hx Hypertension: Yes Hx Pacemaker: No Hx Asthma: No Hx COPD: Yes - respiratory failure. trach/vent Hx Diabetes: No Hx Cancer: No Hx Gastrointestinal Problems: No Hx Dialysis: Yes - C-N-Sf-Sun-Sun ( chest port) Hx Cerebrovascular Accident: No Hx Seizures: No Review of Systems All Other Systems: limited Physical Exam Vital Signs Date Time Temp Pulse Resp B/P (MAP) Pulse Ox O2 Delivery O2 Flow Rate FiO2 03/11/19 10:36 68 16 110/68 (82) 100 Mechanical Ventilator Sp02 EP Interpretation: reviewed, normal General Appearance: no apparent distress, alert, non-toxic, obese Head: normocephalic, atraumatic ENT: no angioedema Neck: normal inspection, other - Tracheostomy/Ventilator Respiratory: no respiratory distress, other - On ventilator Cardiovascular #1: regular rate, rhythm, no edema Gastrointestinal: soft, non-distended, other - G-Tube in place Rectal: deferred Musculoskeletal: normal range of motion Neurologic: other - Quadraplegia/At baseline Skin: other - See RN skin exam Medical Decision Making Diagnostic Impression: Primary Impression: Fecal impaction ER Course This patient has a fecal impaction that has been resistant to multiple regimens to include laxatives, bowel hygiene, multiple enemas. The patient underwent CT of the abdomen and pelvis which showed .... The patient is admitted for further evaluation by gastroenterology and general surgery to assess for possible invasive disimpaction. Patient is ventilator dependent and so was admitted to the stepdown unit for the need for close respiratory management. Laboratory Tests Test 03/11/19 11:18 White Blood Count 8.3 K/UL (4.8-10.8) Red Blood Count 4.12 M/UL (4.20-5.40) L Hemoglobin 13.4 G/DL (12.0-16.0) Hematocrit 40.3 % (37.0-47.0) Mean Corpuscular Volume 98 FL (80-99) Mean Corpuscular Hemoglobin 32.5 PG (27.0-31.0) H Mean Corpuscular Hemoglobin Concent 33.3 G/DL (32.0-36.0) Red Cell Distribution Width 16.6 % (11.6-14.8) H Platelet Count 263 K/UL (150-450) Mean Platelet Volume 7.0 FL (6.5-10.1) Neutrophils (%) (Auto) 68.4 % (45.0-75.0) Lymphocytes (%) (Auto) 18.4 % (20.0-45.0) L Monocytes (%) (Auto) 6.0 % (1.0-10.0) Eosinophils (%) (Auto) 5.2 % (0.0-3.0) H Basophils (%) (Auto) 1.8 % (0.0-2.0) Sodium Level 131 MMOL/L (136-145) L Potassium Level 3.6 MMOL/L (3.5-5.1) Chloride Level 93 MMOL/L (98-107) L Carbon Dioxide Level 24 MMOL/L (21-32) Anion Gap 14 mmol/L (5-15) Blood Urea Nitrogen 49 mg/dL (7-18) H Creatinine 1.7 MG/DL (0.55-1.30) H Estimate Glomerular Filtration Rate 30.3 mL/min (>60) Glucose Level 152 MG/DL (74-106) H Calcium Level 9.6 MG/DL (8.5-10.1) Total Bilirubin 0.7 MG/DL (0.2-1.0) Aspartate Amino Transferase (AST) 25 U/L (15-37) Alanine Aminotransferase (ALT) 38 U/L (12-78) Alkaline Phosphatase 165 U/L (46-116) H Total Protein 8.6 G/DL (6.4-8.2) H Albumin 3.4 G/DL (3.4-5.0) Globulin 5.2 g/dL Albumin/Globulin Ratio 0.7 (1.0-2.7) L EKG Diagnostic Results Rate: normal Rhythm: NSR ST Segments: no acute changes Rhythm Strip Diag. Results EP Interpretation: yes Rate: 60's Rhythm: NSR, no PVC's, no ectopy CT/MRI/US Diagnostic Results CT/MRI/US Diagnostic Results : Imaging Test Ordered: CT abd/pelvis Impression IMPRESSION: Hepatomegaly with fatty infiltration. Chronic left basal atelectasis/scarring with volume loss. Interval resolution of pericardial effusion. Gastrostomy Status post cholecystectomy Diffuse global muscular atrophy. Scoliosis Other incidental findings as above Last Vital Signs Date Time Temp Pulse Resp B/P (MAP) Pulse Ox O2 Delivery O2 Flow Rate FiO2 03/11/19 10:36 68 16 110/68 (82) 100 Mechanical Ventilator Disposition: ADMITTED INPATIENT Condition: Stable Referrals: NOT CHOSEN IPA/,REFERRING (PCP) Ashley Ambrocio DO Mar 11, 2019 11:20
[2019-03-11 11:25] LABS: BASOPHILS % (AUTO) 1.8 % (0.0-2.0); EOSINOPHILS % (AUTO) 5.2 % (0.0-3.0); HEMATOCRIT 40.3 % (37.0-47.0); HEMOGLOBIN 13.4 G/DL (12.0-16.0); LYMPHOCYTES % (AUTO) 18.4 % (20.0-45.0); MEAN CORPUSCULAR VOLUME 98 FL (80-99); NEUTROPHILS % (AUTO) 68.4 % (45.0-75.0); PLATELET COUNT 263 K/UL (150-450); RED BLOOD COUNT 4.12 M/UL (4.20-5.40); RED CELL DISTRIBUTION WIDTH 16.6 % (11.6-14.8); WHITE BLOOD COUNT 8.3 K/UL (4.8-10.8)
[2019-03-11] MEDS ORDERED: SYSTANE NIGHTT3.5 GM OP (11:36)
[2019-03-11] MEDS ORDERED: PROCRIT10000 UNIT SUBQ ×2 (11:36→16:15)
--- NOTE | 2019-03-11 11:36 | NUR ---
ED Nurse Note: PT'S SISTER REFUSES SWABS FOR MRSA/CRE/VRE. PT'S SISTER STATES, "SHE DEFINITELY DOESN'T HAVE THAT."
[2019-03-11 11:42] LABS: ANION GAP 14 mmol/L (5-15); BLOOD UREA NITROGEN 49 mg/dL (7-18); CALCIUM 9.6 MG/DL (8.5-10.1); CARBON DIOXIDE 24 MMOL/L (21-32); CHLORIDE 93 MMOL/L (98-107); CREATININE 1.7 MG/DL (0.55-1.30); POTASSIUM 3.6 MMOL/L (3.5-5.1); SODIUM 131 MMOL/L (136-145)
[2019-03-11 11:47] LABS: ALANINE AMINOTRANSFERASE 38 U/L (12-78); ALBUMIN 3.4 G/DL (3.4-5.0); ALBUMIN/GLOBULIN RATIO 0.7 (1.0-2.7); ALKALINE PHOSPHATASE 165 U/L (46-116); ASPARTATE AMINO TRANSFERASE 25 U/L (15-37); BILIRUBIN,TOTAL 0.7 MG/DL (0.2-1.0)
--- NOTE | 2019-03-11 12:26 | NUR ---
ED Nurse Note: PT TO CT VIA GURNEY ON FORGING DIES FINAL FINISHER ACCOMPANIED BY PRIMARY RN, RT, AND AUTO TOP MECHANIC.
--- NOTE | 2019-03-11 13:55 | NUR ---
ED Nurse Note: ICU CALLED FOR PT REPORT. REPORT GIVEN TO PHIL DURAN. RN READY TO ACCEPT PT. PT TAKEN UP TO ICU VIA GURNEY ON BLACK PICKLER AND ON MECHANICAL VENTILATOR ACCOMPANIED BY PRIMARY RN, RT, AND EMT. VSS.
--- NOTE | 2019-03-11 14:12 | NUR ---
Justina bolden in EDM - 03/11/19 at 1507 by NORA ED Nurse Note: REJI, CHARGE NURSE OF ICU, SPOKE WITH NURSING SPEED READING TEACHER QUESTIONING REASON FOR PT GOING TO ICU AND REFUSES TO ACCEPT PT TO ICU. PT PLACED BACK ON GANG KNIFE FISH CHOPPER AND MECHANICAL VENTILATOR IN ER UNTIL BED REASSIGNED TO PT.
--- NOTE | 2019-03-11 14:32 | Diagnostic Imaging Report ---
Indication: Abdominal pain Technique: Continuous helical transaxial imaging of the abdomen and pelvis was obtained from the lung bases to the pubic symphysis. No intravenous contrast was administered. Coronal 2-D reformats were also obtained. Automatic Exposure Control was utilized. Total Dose length Product (DLP): 1008.[address] Dose Index Volume (CTDIvol): 18.16 mGy Comparison: 05/21/2017 Findings: There is chronic volume loss at the left lung base with elevation of the diaphragm and shifting of the heart and mediastinum to the left. There is trace left pleural fluid. Previously demonstrated pericardial effusion is no longer seen. There is a large bore catheter traversing the right atrium with the tip at the right atrial/IVC junction. The liver is prominent. There is a fatty attenuation lesion in the right lobe of the liver measuring about 1.1 cm. Gastrostomy is noted. Both kidneys are atrophic. There is a right renal cyst again noted. Bowel gas pattern is nonobstructive. Uterus noted. Bladder is nondistended. Cholecystectomy clips noted. There is no hydronephrosis. There is diffuse generalized global muscular atrophy with fatty replacement. There is a moderate degree of heterotopic bone both hips. There is a scoliosis of the thoracolumbar spine. IMPRESSION: Hepatomegaly with fatty infiltration. Chronic left basal atelectasis/scarring with volume loss. Interval resolution of pericardial effusion. Gastrostomy Status post cholecystectomy Diffuse global muscular atrophy. Scoliosis Other incidental findings as above The CT scanner at [facility] is accredited by the [employer] and the scans are performed using dose optimization techniques as appropriate to a performed exam including Automatic Exposure control.
[2019-03-11 15:00] VITALS: BP 144/80
[2019-03-11] MEDS ORDERED: D5NS 1,000 ML IV SCH (15:49)
[2019-03-11] MEDS ORDERED: Ipratropium 0.02% Inh Soln 2.5ml UD HHN PRN (16:00)
[2019-03-11] MEDS ORDERED: LORazepam 0.5mg tab GT PRN (16:00)
--- NOTE | 2019-03-11 16:00 | NUR ---
NURSE NOTES: received pt from ER, obtunded, vent dependent, vital signs stable, no co pain, no SOB, skin warm and dry to touch, intact, anuric, HD pt, family in the room, bed in low position, GT clump.
[2019-03-11] MEDS ORDERED: ALBUTEROL2.5 MG/3 M INH (16:04)
[2019-03-11] MEDS ORDERED: COREG12.5 MG ORAL (16:04)
[2019-03-11] MEDS ORDERED: [UNRECOGNIZED DRUG - OTHER] TOPIC (16:04)
[2019-03-11] MEDS ORDERED: LEVOTHYROXINE125 MCG GT (16:04)
[2019-03-11] MEDS ORDERED: BISACODYL10 M1 RC (16:04)
[2019-03-11] MEDS ORDERED: LORAZEPAM0.5 MG GT (16:15)
[2019-03-11] MEDS ORDERED: BENADRYL A12.5 MG/5 GT (16:15)
[2019-03-11] MEDS ORDERED: SYSTANE 0.3-0.1 EAC2 OP (16:15)
[2019-03-11] MEDS ORDERED: SODIUM CHLORIDE3 ML IH (16:15)
[2019-03-11] MEDS ORDERED: 8 HOUR PAIN RE650 MG ORAL (16:15)
[2019-03-11] MEDS ORDERED: Acetaminophen 500mg (ES) tab ORAL PRN (16:30)
[2019-03-11] MEDS ORDERED: HYDROcodone/Acetamin 5/325 tab ORAL PRN (16:45)
[2019-03-11] MEDS ORDERED: Albuterol ud Inhalation IN-LINE SCH ×2 (17:00→19:00)
[2019-03-11] MEDS ORDERED: Sodium Chloride 3% 4ml Nebul Soln INH SCH (17:00)
[2019-03-11] MEDS ORDERED: Ipratropium 0.02% Inh Soln 2.5ml UD HHN SCH ×2 (17:00→19:00)
[2019-03-11] MEDS: NovoLOG Insulin Flexpen SUBQ SCH (18:00)
[2019-03-11] MEDS ORDERED: Albuterol ud Inhalation HHN PRN (18:00)
--- NOTE | 2019-03-11 18:58 | NUR ---
RESPIRATORY NOTE: Received pt on AC 12, 450VT, 35%, PEEP +5. Pt is trach-dependent w/ a cuffed, Portex Bivona 8 tube. Pt currently asleep/flat effect/disoriented, occasionally responds to stimuli. Family & personal lines appraiser at bedside. B/S maureen. rhonchi, RT to only sxn per family/caregiver, caregiver sxn using red chris, RT to assist using sterile procedure. Vent plugged into red outlet, ambubag at bedside. Pt in no apparent distress at this time. Will continue to monitor pt.
[2019-03-11] MEDS ORDERED: Albuterol ud Inhalation HHN SCH (19:00)
--- NOTE | 2019-03-11 19:20 | NUR ---
NURSE NOTES: Received patient from Iesha Carroll RN. patient is observed resting in bed, no s/sx of pain noted at this time. vent to trach settings are as follows: Portex XLT: 8.0, AC: 12, TV: 450, FiO2: 35%, PEEP: 5. no s/sx of respiratory distress noted at this time. G-tube site is patent and intact, clamped at this time. HOB elevated, no residual noted. L chest HD catheter noted. IV site is patent and intact, running fluids at prescribed rate. bed in lowest position and locked, siderails up X3, call light within reach. will continue to monitor.
--- NOTE | 2019-03-11 19:30 | NUR ---
NURSE NOTES: HD on 03/12, spoke with HD nurse Lupillo.
--- NOTE | 2019-03-11 19:30 | Consultation ---
DATE OF CONSULTATION: 03/11/2019 NEPHROLOGY CONSULTATION CONSULTING PHYSICIAN: Ede Thakur M.D. REFERRING PHYSICIAN: Maykel Evans M.D. REASON FOR CONSULTATION: The patient dependent with end-stage renal disease being on dialysis as well as ventilator-dependent respiratory failure presented with high residual tube feeding. HISTORY OF PRESENT ILLNESS: This is a very pleasant, unfortunate 64-year-old, white female that I am following as outpatient. She has an unfortunate event of anoxic encephalopathy and has been ventilator-dependent respiratory failure over the past 16 years, acute on chronic kidney disease and eventually progressed to end-stage renal disease being on hemodialysis. She is getting dialyzed 5 days a week and she was doing fairly well, up to about a couple of weeks ago when her blood sugars has gone up and as a result we suspect the possibility of some respiratory infection for which she underwent Cholestin inhalation as well as amikacin inhalation after which she started to have some high residual tube feeding. There was some fecal impaction suspected on plain abdominal x-ray. She was started on lactulose and also suppository and rectal stimulation which helped to some degree but continues to have this high residual tube feeding and she is not able to tolerate the tube feeding very well. There is a sister who is taking care of her has been worried and she was brought to the emergency room of [facility] for further evaluation. CT scan of the abdomen with p.o. contrast is still pending at the time of this dictation. I have been asked to see her and assess her for her hemodialysis needs. PAST MEDICAL HISTORY: Significant for longstanding type 2 diabetes mellitus, hypothyroidism, chronic diastolic congestive heart failure, anoxic encephalopathy with ventilator-dependent respiratory failure, fatty liver, also has had previous episodes of diabetic ketoacidosis PAST SURGICAL HISTORY: Status post tracheostomy. MEDICATIONS: Prior to admission as being insulin Lantus 30 units subcutaneous b.i.d., NovoLog insulin 8 units subcutaneous t.i.d. before each meal, levothyroxine 0.15 mg per G-tube daily, multivitamin one tablet per G-tube daily, MiraLAX 17 g per G-tube daily, Coreg 12.5 mg per G-tube b.i.d., Epogen 66991 units subcutaneous twice a week. SOCIAL HISTORY: She has a very supportive sister. She has been ventilator-dependent for the past 16 years. 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 No smoking or drinking. REVIEW OF SYSTEMS: Impossible since she is on the vent and she has anoxic encephalopathy. PHYSICAL EXAMINATION: GENERAL: She does not seem to be in much acute distress. She is on the ventilator. VITAL SIGNS: Blood pressure is 122/72, pulse of 72, respirations 14, temperature 98.2. HEENT: Head is atraumatic. Eyes pupils reactive to light. She has a tracheostomy in place. NECK: Supple. Jugular venous distention is low normal. No cervical adenopathy. No thyromegaly. HEART: Regular rhythm. No gallop. LUNGS: Decreased air excursion bilaterally. ABDOMEN: Obese. No hepatosplenomegaly. EXTREMITIES: Lower extremity shows trace pedal edema. NEUROLOGICAL: She is noncommunicative on the ventilator at this point. No focal neurological deficit present. LABORATORY DATA: WBC of 8.3, hemoglobin 13.4, hematocrit 40.3, and platelets of 263. Sodium 131, potassium 3.6, chloride 93, carbon dioxide 24, BUN is 49, creatinine is 1.7. Alkaline phosphatase 165. Albumin is 3.4. AST and ALT within normal range. IMPRESSION: 1. End-stage renal disease on hemodialysis. 2. Clinically she seems to be somewhat hypovolemic at this point. 3. Type 2 diabetes mellitus insulin requiring. 4. Ventilator-dependent respiratory failure . 5. She might have some gastroparesis in addition to may be some degree of fecal impaction that needs to be released. PLAN: She is going to be dialyzed tomorrow. I am going to arrange for that. We are going to get a GI consult and may need some disimpaction done in the hospital. Ede Thakur M.D. DR: Kaycee JOB#: [id number] CC:
--- NOTE | 2019-03-11 19:32 | NUR ---
HAND-OFF: Report given to JUSTINA VILLARREAL, NO DISTRESS AT THIS TIME.
[2019-03-11 20:00] VITALS: BP 120/65
[2019-03-11] MEDS ORDERED: Carvedilol 12.5mg tab ORAL SCH (21:00)
[2019-03-11] MEDS ORDERED: Dyna-Hex 2% Top Sol 2oz TOPIC SCH (21:00)
[2019-03-11] MEDS: SYSTANE ULTRA OPHTHALM SCH (21:26)
[2019-03-11] MEDS: [UNRECOGNIZED DRUG - OTHER] OPHTHALM SCH (21:26)
[2019-03-11] MEDS: Carvedilol 12.5mg tab GT SCH (21:27)
[2019-03-11] MEDS: Albuterol ud Inhalation HHN SCH (23:09)
[2019-03-11] MEDS: Ipratropium 0.02% Inh Soln 2.5ml UD HHN SCH (23:09)
[2019-03-11] MEDS: Sodium Chloride 3% 4ml Nebul Soln INH SCH (23:40)
[2019-03-12] VITALS: BP 107/62
[2019-03-12] MEDS: BISACODYL 10 MG RECTAL PRN (00:19)
[2019-03-12] MEDS: SYSTANE ULTRA OPHTHALM SCH ×6 (01:26→21:05)
[2019-03-12] MEDS: [UNRECOGNIZED DRUG - OTHER] OPHTHALM SCH ×6 (01:27→21:05)
[2019-03-12] MEDS: Ipratropium 0.02% Inh Soln 2.5ml UD HHN SCH ×6 (03:14→23:06)
[2019-03-12] MEDS: Albuterol ud Inhalation HHN SCH ×6 (03:14→23:06)
[2019-03-12] MEDS: Sodium Chloride 3% 4ml Nebul Soln INH SCH ×6 (03:29→23:18)
[2019-03-12 04:00] VITALS: BP 97/58
[2019-03-12 04:48] LABS: BASOPHILS % (AUTO) 1.5 % (0.0-2.0); EOSINOPHILS % (AUTO) 3.8 % (0.0-3.0); HEMATOCRIT 38.4 % (37.0-47.0); HEMOGLOBIN 12.9 G/DL (12.0-16.0); LYMPHOCYTES % (AUTO) 14.4 % (20.0-45.0); MEAN CORPUSCULAR VOLUME 96 FL (80-99); MONOCYTES % (AUTO) 5.2 % (1.0-10.0); NEUTROPHILS % (AUTO) 75.2 % (45.0-75.0); PLATELET COUNT 261 K/UL (150-450); RED BLOOD COUNT 4.02 M/UL (4.20-5.40); WHITE BLOOD COUNT 8.4 K/UL (4.8-10.8)
[2019-03-12 05:11] LABS: ANION GAP 19 mmol/L (5-15); BLOOD UREA NITROGEN 59 mg/dL (7-18); CALCIUM 9.3 MG/DL (8.5-10.1); CARBON DIOXIDE 19 MMOL/L (21-32); CHLORIDE 95 MMOL/L (98-107); CREATININE 2.1 MG/DL (0.55-1.30); POTASSIUM 3.7 MMOL/L (3.5-5.1); SODIUM 133 MMOL/L (136-145)
--- NOTE | 2019-03-12 05:28 | NUR ---
RESPIRATORY NOTE: Pt remains stable at this time on current vent settings. Assisted caregiver w/ trach sxn. Caregiver also refused trach care as they only do it in the morning. Pt vitals w/in normal limits. Pt resting comfortable, no distress noted. Will continue plan of care.
[2019-03-12] MEDS: NovoLOG Insulin Flexpen SUBQ SCH ×4 (05:37→16:45)
--- NOTE | 2019-03-12 06:37 | General Progress Note ---
Assessment/Plan Assessment/Plan: Assessment - Resolved stool impaction ( CT and rectal exam) - Resp failure / trach - renal failure - contracted / vegetative state - high decub risk Recommendations - restart TF - sorbitol qhs - monitor residuals - Elevate HOB - decub prevention Thank you Emily Hu MD Subjective Allergies: Coded Allergies: OLANZAPINE (Verified Allergy, Severe, RESP FAILURE, 11/25/13) VANCOMYCIN (Verified Allergy, Severe, 11/25/13) PIPERACILLIN (Verified Allergy, Intermediate, HIVES, 11/25/13) TAZOBACTAM (Verified Allergy, Intermediate, HIVES, 11/25/13) Objective Last 24 Hour Vital Signs Date Time Temp Pulse Resp B/P (MAP) Pulse Ox O2 Delivery O2 Flow Rate FiO2 03/12/19 05:18 71 13 35 03/12/19 04:00 35 03/12/19 04:00 97.9 69 12 97/58 (71) 99 03/12/19 04:00 72 03/12/19 04:00 Mechanical Ventilator 03/12/19 03:40 71 12 100 Mechanical Ventilator 35 03/12/19 03:30 68 12 100 Mechanical Ventilator 35 03/12/19 03:29 68 12 100 Mechanical Ventilator 35 03/12/19 03:14 68 13 100 Mechanical Ventilator 35 68 13 35 03/12/19 00:50 71 14 35 03/12/19 00:00 97.7 75 12 107/62 (77) 99 03/12/19 00:00 72 03/12/19 00:00 Mechanical Ventilator 03/11/19 23:51 71 12 99 Mechanical Ventilator 35 03/11/19 23:41 72 12 99 Mechanical Ventilator 35 03/11/19 23:24 72 12 99 Mechanical Ventilator 35 03/11/19 23:09 76 14 99 Mechanical Ventilator 35 76 14 35 03/11/19 21:27 80 120/65 03/11/19 20:56 80 17 35 03/11/19 20:00 35 03/11/19 20:00 77 03/11/19 20:00 98.1 75 16 120/65 (83) 99 03/11/19 20:00 Mechanical Ventilator 03/11/19 18:52 73 12 99 35 75 12 35 03/11/19 18:37 Mechanical Ventilator 03/11/19 18:18 77 17 100 Mechanical Ventilator 35 03/11/19 17:30 76 12 35 03/11/19 16:00 73 03/11/19 15:20 72 12 35 03/11/19 15:00 97.7 72 12 144/80 (101) 99 03/11/19 13:56 98.2 72 14 122/72 100 Trach Collar 35 03/11/19 12:50 74 12 35 03/11/19 11:10 66 12 Trach Collar 35 03/11/19 11:10 66 12 116/68 100 Trach Collar 35 03/11/19 10:50 68 12 35 03/11/19 10:50 68 12 100 Mechanical Ventilator 35 03/11/19 10:36 68 16 110/68 (82) 100 Mechanical Ventilator Intake and Output 03/11/19 03/12/19 19:00 07:00 Intake Total 500 ml Balance 500 ml Intake IV Total 500 ml # Voids 1 # Bowel Movements 1 1 Laboratory Tests 03/11/19 11:18: White Blood Count 8.3, Red Blood Count 4.12L, Hemoglobin 13.4, Hematocrit 40.3, Mean Corpuscular Volume 98, Mean Corpuscular Hemoglobin 32.5H, Mean Corpuscular Hemoglobin Concent 33.3, Red Cell Distribution Width 16.6H, Platelet Count 263, Mean Platelet Volume 7.0, Neutrophils (%) (Auto) 68.4, Lymphocytes (%) (Auto) 18.4L, Monocytes (%) (Auto) 6.0, Eosinophils (%) (Auto) 5.2H, Basophils (%) ( Auto) 1.8, Sodium Level 131L, Potassium Level 3.6, Chloride Level 93L, Carbon Dioxide Level 24, Anion Gap 14, Blood Urea Nitrogen 49H, Creatinine 1.7H, Estimat Glomerular Filtration Rate 30.3, Glucose Level 152H, Calcium Level 9.6, Total Bilirubin 0.7, Aspartate Amino Transf (AST/SGOT) 25, Alanine Aminotransferase (ALT/SGPT) 38, Alkaline Phosphatase 165H, Total Protein 8.6H, Albumin 3.4, Globulin 5.2, Albumin/Globulin Ratio 0.7L 03/12/19 03:30: White Blood Count 8.4, Red Blood Count 4.02L, Hemoglobin 12.9, Hematocrit 38.4, Mean Corpuscular Volume 96, Mean Corpuscular Hemoglobin 32.2H, Mean Corpuscular Hemoglobin Concent 33.7, Red Cell Distribution Width 17.0H, Platelet Count 261, Mean Platelet Volume 6.5, Neutrophils (%) (Auto) 75.2H, Lymphocytes (%) (Auto) 14.4L, Monocytes (%) (Auto) 5.2, Eosinophils (%) (Auto) 3.8H, Basophils (%) ( Auto) 1.5, Sodium Level 133L, Potassium Level 3.7, Chloride Level 95L, Carbon Dioxide Level 19L, Anion Gap 19H, Blood Urea Nitrogen 59H, Creatinine 2.1H, Estimat Glomerular Filtration Rate 23.7, Glucose Level 195H, Calcium Level 9.3 Height (Feet): 5 Height (Inches): 4.00 Weight (Pounds): 141 Emily Hu MD Mar 12, 2019 06:37
--- NOTE | 2019-03-12 07:20 | NUR ---
RESPIRATORY NOTE: Patient received mechanically ventilated on PB 840 with current ordered vent settings. Patient has trach size 8.0 Portex Bivona cuffed. Vent alarms are functional and audible. Vent alarms are functional and audible. There is an ambu bag available at the bedside and the vent is connected to a red outlet. Family refuses trach care and suction, both which are done by the caregiver and RT is to assist. Patient appears comfortable at this time. Will continue to monitor.
--- NOTE | 2019-03-12 07:54 | NUR ---
HAND-OFF: Report given to PHIL Fraga. patient is in stable condition.
[2019-03-12 08:00] VITALS: BP 122/68
--- NOTE | 2019-03-12 08:00 | NUR ---
NURSE NOTES: Received change of shift report from Saloni VILLARREAL. Pt opens eyes to touch, however with flat affect, withdraws to pain. Pt's private nurse/caregiver is at bedside. Pt has trach, Portex XLT size 8 connected to vent with settings AC12, VT 450, Peep 5.0, FIO2 35% with 100% O2sat and diminished lung sounds on auscultation. Tele monitor is on pt, displays NSR with heart rate in the 70's and weak peripheral pulses on palpation. Pt has left chest permacath for hemodialysis. Peripheral IV access is also present on right hand #20G infusing D5 NS at 50ml/hour. Pt has GT in place with feeding Nepro 1.8 infusing at starting rate of 10ml/hour to be titrated to goal rate of 25ml/hour. Residual was checked only 5ml output. Abdomen is large, round, soft, nontender to touch with hypoactive bowel sounds. Skin is intact. Bilateral extremities are elevated on pillows. Head of bed is at 30 degrees, bed locked, in lowest position with three side rails up and call light within reach. Will continue to monitor pt and follow plan of care per MD orders and protocol.
[2019-03-12] MEDS: Carvedilol 12.5mg tab GT SCH ×2 (08:50→21:06)
[2019-03-12] MEDS: Nephrovite tab (Rena-Vite) GT SCH (08:51)
[2019-03-12] MEDS ORDERED: Heparin Sod 1000 units/ml 10ml IV PRN (09:00)
[2019-03-12 12:00] VITALS: BP 124/61
--- NOTE | 2019-03-12 12:00 | NUR ---
NURSE NOTES: VS stable. Pt remains afebrile. O2sat at 100% with same vent settings from this AM. Pt's private caregiver remains at bedside. Tele monitor displays NSR. GT feeding rate has been increased to goal rate of 25ml/hour. Pt is tolerating feeding well with no noted residual. Pt is being turned every two hours with the assistance of the private lpn care manager at bedside.
--- NOTE | 2019-03-12 12:37 | NUR ---
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
--- NOTE | 2019-03-12 14:30 | NUR ---
NURSE NOTES: [facility] nephrology was contacted again regarding pt's scheduled bedside dialysis treatment for today. Per Dagmar at the answering services/call center, message will be relayed to the card tape converter operator/covering senior speech pathologist. Charge nurse and family aware.
--- NOTE | 2019-03-12 14:45 | NUR ---
RD ASSESSMENT & RECOMMENDATIONS SEE CARE ACTIVITY FOR COMPLETE ASSESSMENT DAILY ESTIMATED NEEDS: Needs based on Critical care, CREW MESS ATTENDANT TF, HD/ 51.5kg abw 22-31 kcals/kg 4903-3689 total kcals 1.2-2 g protein/kg 62-103 g total protein 20-22 mL/kg 1559-3383 total fluid mLs NUTRITION DIAGNOSIS: 1) Swallowing difficulty R/T respiratory status as evidenced by pt vent dep via trach w/ PEG feedings CURRENT TF:Nepro @ 25ml/hr x 22 hrs (On Synthroid QD) ENTERAL NUTRITION RECOMMENDATIONS: Nepro @ 40ml/hr x 22 hrs to provide 880ml, 1584kcal, 71g prot, 640ml free H20 - Rec to increase goal rate to 40ml/hr x 22 hrs - Hold 1 hr before and after Synthroid med - HOB >30degrees/Free H20 flushes per MD ADDITIONAL RECOMMENDATIONS: 1) RECALIBRATED bedscale wt for accurate CBW 2) Monitor lytes, replete as needed 3) Monitor TF tolerance: admitted w/ c/o elev TF residuals -> Monitor need for prokinetics .
[2019-03-12 16:00] VITALS: BP 122/61
--- NOTE | 2019-03-12 16:09 | Nephrology Progress Note ---
Assessment/Plan Assessment 1) VDRF 2) ESRD 3) DM 4) High residual TF, ? Gastroparesis Plan: HD today Increase TF to 50cc/hr Will review CT with Radiologist Subjective Subjective She is doing status quo, The CT report does not talk about any fecal impaction, started on Nepro at 25 cc/hr, no distress, still on the vent Objective Objective Last 24 Hour Vital Signs Date Time Temp Pulse Resp B/P (MAP) Pulse Ox O2 Delivery O2 Flow Rate FiO2 03/12/19 12:48 71 12 35 03/12/19 12:00 98.1 75 16 124/61 (82) 98 03/12/19 12:00 Mechanical Ventilator 03/12/19 12:00 35 03/12/19 12:00 70 03/12/19 11:54 74 14 100 Mechanical Ventilator 35 03/12/19 11:44 76 14 100 Mechanical Ventilator 35 03/12/19 11:40 75 14 100 03/12/19 11:30 71 14 99 Mechanical Ventilator 35 03/12/19 10:46 71 14 35 03/12/19 08:45 70 16 35 03/12/19 08:00 97.9 69 16 122/68 (86) 98 03/12/19 08:00 35 03/12/19 08:00 Mechanical Ventilator 03/12/19 07:40 64 03/12/19 07:39 65 12 100 Mechanical Ventilator 35 03/12/19 07:26 62 12 100 Mechanical Ventilator 35 03/12/19 07:25 62 12 100 Mechanical Ventilator 35 03/12/19 07:10 65 14 99 Mechanical Ventilator 35 65 14 35 03/12/19 05:18 71 13 35 03/12/19 04:00 35 03/12/19 04:00 97.9 69 12 97/58 (71) 99 03/12/19 04:00 72 03/12/19 04:00 Mechanical Ventilator 03/12/19 03:40 71 12 100 Mechanical Ventilator 35 03/12/19 03:30 68 12 100 Mechanical Ventilator 35 03/12/19 03:29 68 12 100 Mechanical Ventilator 35 03/12/19 03:14 68 13 100 Mechanical Ventilator 35 68 13 35 03/12/19 00:50 71 14 35 03/12/19 00:00 97.7 75 12 107/62 (77) 99 03/12/19 00:00 72 03/12/19 00:00 Mechanical Ventilator 03/11/19 23:51 71 12 99 Mechanical Ventilator 35 03/11/19 23:41 72 12 99 Mechanical Ventilator 35 03/11/19 23:24 72 12 99 Mechanical Ventilator 35 03/11/19 23:09 76 14 99 Mechanical Ventilator 35 76 14 35 03/11/19 21:27 80 120/65 03/11/19 20:56 80 17 35 03/11/19 20:00 35 03/11/19 20:00 77 03/11/19 20:00 98.1 75 16 120/65 (83) 99 03/11/19 20:00 Mechanical Ventilator 03/11/19 18:52 73 12 99 35 75 12 35 03/11/19 18:37 Mechanical Ventilator 03/11/19 18:18 77 17 100 Mechanical Ventilator 35 03/11/19 17:30 76 12 35 03/11/19 16:00 73 Intake and Output 03/11/19 03/12/19 19:00 07:00 Intake Total 630 ml Balance 630 ml IV Total 600 ml Other 30 ml # Voids 1 # Bowel Movements 1 2 Laboratory Tests 03/12/19 03:30: White Blood Count 8.4, Red Blood Count 4.02L, Hemoglobin 12.9, Hematocrit 38.4, Mean Corpuscular Volume 96, Mean Corpuscular Hemoglobin 32.2H, Mean Corpuscular Hemoglobin Concent 33.7, Red Cell Distribution Width 17.0H, Platelet Count 261, Mean Platelet Volume 6.5, Neutrophils (%) (Auto) 75.2H, Lymphocytes (%) (Auto) 14.4L, Monocytes (%) (Auto) 5.2, Eosinophils (%) (Auto) 3.8H, Basophils (%) ( Auto) 1.5, Sodium Level 133L, Potassium Level 3.7, Chloride Level 95L, Carbon Dioxide Level 19L, Anion Gap 19H, Blood Urea Nitrogen 59H, Creatinine 2.1H, Estimat Glomerular Filtration Rate 23.7, Glucose Level 195H, Calcium Level 9.3 Height (Feet): 5 Height (Inches): 4.00 Weight (Pounds): 156 General Appearance: WD/WN, no apparent distress, other - On the vent EENT: normal ENT inspection Neck: normal alignment Cardiovascular: normal rate Respiratory/Chest: lungs clear Abdomen: normal bowel sounds, non tender, soft Neurologic: other - anoxic encepalopathy, responds some Ede Thakur MD Mar 12, 2019 16:09
--- NOTE | 2019-03-12 16:30 | NUR ---
NURSE NOTES: Pt had BM x2, initial was liquid, followed by formed/soft brown stool. Pt was cleaned, gown/linens were changed. GT site dressing was changed. Pt's peripheral IV access was noted to be out of the arm while pt was being turned in bed. VS stable. Pt remains afebrile. Per Dr Thakur's order, GT feeding has been increased to 50ml/hour goal rate. Pt is tolerating feeding well so far with no noted residual. Oral care was done and pt suctioned. Pt is being turned every 2 hours. Bilateral extremities are elevated on pillows. Addendum: 03/12/19 at 1814 by LORENZO CASTANEDA RN Informed charge nurse/Soni VILLARREAL regarding IV access loss. Per senior technical project manager RN and family, pt is a hard stick. Pt currently has on IV medications ordered and per Soni VILLARREAL, no need for IV access at this time, since pt also had dialysis permacath.
--- NOTE | 2019-03-12 17:14 | Pulmonology Progress Note ---
Assessment/Plan Assessment/Plan respiratory failure chronic encephalopathy trach CRF GT constipation increase in residual hypertension diabetes PLAN care noted vent as is feeds gi follow up HD and monitor fluid status skin care chronic care monitor sugars impression, plan, and exam edited and reviewed in detail care discussed with RN Subjective ROS Limited/Unobtainable: Yes Allergies: Coded Allergies: OLANZAPINE (Verified Allergy, Severe, RESP FAILURE, 11/25/13) VANCOMYCIN (Verified Allergy, Severe, 11/25/13) PIPERACILLIN (Verified Allergy, Intermediate, HIVES, 11/25/13) TAZOBACTAM (Verified Allergy, Intermediate, HIVES, 11/25/13) Subjective care noted and reviewed d/w sister in detail Objective Last 24 Hour Vital Signs Date Time Temp Pulse Resp B/P (MAP) Pulse Ox O2 Delivery O2 Flow Rate FiO2 03/12/19 15:06 75 15 35 03/12/19 12:48 71 12 35 03/12/19 12:00 98.1 75 16 124/61 (82) 98 03/12/19 12:00 Mechanical Ventilator 03/12/19 12:00 35 03/12/19 12:00 70 03/12/19 11:54 74 14 100 Mechanical Ventilator 35 03/12/19 11:44 76 14 100 Mechanical Ventilator 35 03/12/19 11:40 75 14 100 03/12/19 11:30 71 14 99 Mechanical Ventilator 35 03/12/19 10:46 71 14 35 03/12/19 08:45 70 16 35 03/12/19 08:00 97.9 69 16 122/68 (86) 98 03/12/19 08:00 35 03/12/19 08:00 Mechanical Ventilator 03/12/19 07:40 64 03/12/19 07:39 65 12 100 Mechanical Ventilator 35 03/12/19 07:26 62 12 100 Mechanical Ventilator 35 03/12/19 07:25 62 12 100 Mechanical Ventilator 35 03/12/19 07:10 65 14 99 Mechanical Ventilator 35 65 14 35 03/12/19 05:18 71 13 35 03/12/19 04:00 35 03/12/19 04:00 97.9 69 12 97/58 (71) 99 03/12/19 04:00 72 03/12/19 04:00 Mechanical Ventilator 03/12/19 03:40 71 12 100 Mechanical Ventilator 35 03/12/19 03:30 68 12 100 Mechanical Ventilator 35 03/12/19 03:29 68 12 100 Mechanical Ventilator 35 03/12/19 03:14 68 13 100 Mechanical Ventilator 35 68 13 35 03/12/19 00:50 71 14 35 03/12/19 00:00 97.7 75 12 107/62 (77) 99 03/12/19 00:00 72 03/12/19 00:00 Mechanical Ventilator 03/11/19 23:51 71 12 99 Mechanical Ventilator 35 03/11/19 23:41 72 12 99 Mechanical Ventilator 35 03/11/19 23:24 72 12 99 Mechanical Ventilator 35 03/11/19 23:09 76 14 99 Mechanical Ventilator 35 76 14 35 03/11/19 21:27 80 120/65 03/11/19 20:56 80 17 35 03/11/19 20:00 35 03/11/19 20:00 77 03/11/19 20:00 98.1 75 16 120/65 (83) 99 03/11/19 20:00 Mechanical Ventilator 03/11/19 18:52 73 12 99 35 75 12 35 03/11/19 18:37 Mechanical Ventilator 03/11/19 18:18 77 17 100 Mechanical Ventilator 35 03/11/19 17:30 76 12 35 Intake and Output 03/11/19 03/12/19 19:00 07:00 Intake Total 630 ml Balance 630 ml IV Total 600 ml Other 30 ml # Voids 1 # Bowel Movements 1 2 Objective WDWN NAD trach reduced breath sounds bilaterally without rhonchi or wheeze [id number] without MRG NABS nontender no HSM no CCE nonfocal poorly responsive at present skin exam noted gt feeds Laboratory Tests 03/12/19 03:30: White Blood Count 8.4, Red Blood Count 4.02L, Hemoglobin 12.9, Hematocrit 38.4, Mean Corpuscular Volume 96, Mean Corpuscular Hemoglobin 32.2H, Mean Corpuscular Hemoglobin Concent 33.7, Red Cell Distribution Width 17.0H, Platelet Count 261, Mean Platelet Volume 6.5, Neutrophils (%) (Auto) 75.2H, Lymphocytes (%) (Auto) 14.4L, Monocytes (%) (Auto) 5.2, Eosinophils (%) (Auto) 3.8H, Basophils (%) ( Auto) 1.5, Sodium Level 133L, Potassium Level 3.7, Chloride Level 95L, Carbon Dioxide Level 19L, Anion Gap 19H, Blood Urea Nitrogen 59H, Creatinine 2.1H, Estimat Glomerular Filtration Rate 23.7, Glucose Level 195H, Hemoglobin A1c 5.7 , Calcium Level 9.3, Thyroid Stimulating Hormone (TSH) 1.987 Current Medications Medications (Trade) Dose Ordered Sig/Alex Route PRN Reason Start Time Stop Time Status Last Admin Dose Admin Acetaminophen (Tylenol) 1,000 mg Q6H PRN ORAL Mild Pain/Temp > 100.5 03/11/19 16:30 04/10/19 16:29 Acetaminophen/ Hydrocodone Bitart ([place] 5/325) 1 tab Q4H PRN ORAL Moderate Pain (Pain Scale 4-6) 03/11/19 16:45 03/18/19 16:44 Albuterol Sulfate (Proventil) 2.5 mg Q4HRT HHN 03/11/19 23:00 03/16/19 18:59 03/12/19 15:37 Albuterol Sulfate (Proventil) 2.5 mg Q6HRT PRN HHN Shortness of Breath 03/11/19 18:00 03/16/19 17:59 Barium Sulfate (Readi-Cat 2) 450 ml NOW PRN ORAL Radiology Procedure 03/11/19 11:15 03/13/19 11:05 Carvedilol (Coreg) 12.5 mg EVERY 12 HOURS GT 03/11/19 21:00 04/10/19 20:59 03/11/19 21:27 Chlorhexidine Gluconate ([place]-Hex 2%) 1 applic DAILY@1999 TOPIC 03/12/19 20:00 04/11/19 19:59 Dextrose (Dextrose 50%) 25 ml Q30M PRN IV Hypoglycemia 03/11/19 17:15 04/10/19 17:14 Dextrose (Dextrose 50%) 50 ml Q30M PRN IV Hypoglycemia 03/11/19 17:15 04/10/19 17:14 Epoetin Amadou (Epoetin Amadou(ESRD on dialysis)) 10,000 unit ONCE A WEEK SUBQ 03/19/19 21:00 04/18/19 20:59 Heparin Sodium (Porcine) (Heparin Sod 1000 units/ml 10ml) 2,000 unit ONCE PRN IV dialysis 03/12/19 09:00 03/12/19 23:59 Insulin Aspart (NovoLOG) EVERY 6 HOURS SUBQ 03/11/19 18:00 04/10/19 17:59 03/12/19 11:23 Iohexol (OMNIPAQUE-300 100ml) 100 ml NOW PRN INJ Radiology Procedure 03/11/19 11:15 03/13/19 11:05 Ipratropium [place] (Atrovent) 500 mcg Q4HRT HHN 03/11/19 23:00 03/16/19 18:59 03/12/19 15:37 Ipratropium [place] (Atrovent) 500 mcg Q6H PRN HHN Shortness of Breath 03/11/19 16:00 03/16/19 15:59 Levothyroxine Sodium (Synthroid) 200 mcg QHS GT 03/11/19 21:00 04/10/19 20:59 03/11/19 21:27 Lorazepam (Ativan) 0.5 mg Q6H PRN GT For Anxiety 03/11/19 16:00 03/18/19 15:59 Multivitamins (Multivitamins) 1 tab DAILY GT 03/12/19 09:00 04/11/19 08:59 03/12/19 08:51 Patient Own Medication (Patient's Own Med) 1 ea DAILYPRN PRN RECTAL constipation 03/11/19 21:15 04/10/19 21:14 03/12/19 00:19 Patient Own Medication (Patient's Own Med) 1 ea Q4HR OPHTHALM 03/11/19 21:00 04/10/19 20:59 03/12/19 16:46 Patient Own Medication (Patient's Own Med) 2 ea Q4HR OPHTHALM 03/11/19 21:00 04/10/19 20:59 03/12/19 16:46 Saccharomyces Boulardii (Florastor) 250 mg TWICE A DAY GT 03/11/19 18:00 04/10/19 17:59 Sodium Chloride (Sodium Chloride [place]olas 3%) 5 ml Q4HRT INH 03/11/19 23:00 04/10/19 16:59 03/12/19 15:56 Sorbitol (Sorbitol) 30 ml QHS ORAL 03/12/19 21:00 04/11/19 20:59 Vitamin B Complex/ Vit C/Folic Acid (Nephrovite) 1 tab DAILY GT 03/12/19 09:00 04/11/19 08:59 03/12/19 08:51 Maykel Evans MD Mar 12, 2019 17:14
--- NOTE | 2019-03-12 18:00 | Consultation ---
DATE OF CONSULTATION: 03/12/2019 GASTROENTEROLOGY CONSULTATION CONSULTING PHYSICIAN: Emily Hu M.D. CHIEF COMPLAINT: I was asked to see this patient by Dr. Maykel Evans and Dr. Ede Thakur for evaluation of gastrointestinal issues. HISTORY OF PRESENT ILLNESS: The patient is an unfortunate 64-year-old woman with multiple medical problems including chronic respiratory failure requiring tracheostomy and renal failure requiring dialysis, who was brought into the hospital for some degree of fecal impaction. The patient was found to have this based on abdominal x-rays. She was given lactulose and suppositories and she did clear out some of the stools. There was also some degree of residuals noted and tube feedings have been off overnight. The patient had a CT scan here in-house, which did not show any evidence of rectal stool impaction and I performed a rectal exam as described below and this did not show any stool impaction as well. The patient herself was unable to provide any history. Most information is only available from the chart. PAST MEDICAL HISTORY: History of anoxic encephalopathy; respiratory failure, status post tracheostomy; renal failure, on dialysis; hypothyroidism; diabetes mellitus; chronic diastolic congestive heart failure; fatty liver; and history of diabetic ketoacidosis. PAST SURGICAL HISTORY: Status tracheostomy, status gastrostomy. FAMILY HISTORY: Noncontributory. SOCIAL HISTORY: The patient has a sister who looks after her . 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 There is no history of smoking or drinking. PHYSICAL EXAMINATION: GENERAL: Debilitated white woman seen in her room. Completely contracted HEENT: Normocephalic and atraumatic. Tracheostomy was in place. CHEST: Revealed coarse breath sounds. CARDIOVASCULAR: Revealed regular rate. ABDOMEN: Soft with gastrostomy, which was in good position. EXTREMITIES: Revealed no edema, but the patient was very contracted in all four extremities. Her body was stiff overall. RECTAL: Revealed no evidence of rectal impaction. ASSESSMENT: This patient has had a recent bout of constipation and rectal impaction, which appears to be resolving. I would continue giving her long-term bowel regimen, which can be adjusted with bowel movements. Feeds could be restarted and is likely to tolerate, now that the rectal impaction has resolved. I will start the tube feedings again at this time and monitor progress closely. The patient is at a high risk for her decubitus ulceration, given her fully contracted vegetative state. Skin be monitored for further breakdown per protocol. RECOMMENDATIONS: Per above discussion and per orders in the chart. Thank you for asking me to participate in the care of this patient. Emily Hu M.D. DR: GREG JOB#: [id number] CC: MABLE
--- NOTE | 2019-03-12 18:00 | NUR ---
NURSE NOTES: Dialysis nurse is at bedside for the scheduled bedside dialysis treatment. Pt's daughter and private caregiver are both also at bedside.
--- NOTE | 2019-03-12 19:00 | NUR ---
RESPIRATORY NOTE:Patient received on current ordered vent settings. Patient has trach size 8.0 Portex Bivona cuffed. no signs of SOB or discomfort noted, alarms are on and audible. vent is connected to red outlet. trach care and suction are done by the personal lines sales rep and RT is to assist. Will continue to monitor.
--- NOTE | 2019-03-12 19:10 | NUR ---
HAND-OFF: Report given to Saloni VILLARREAL. VS stable. Endorsed plan of care. HD is in progress with dialysis nurse at bedside.
--- NOTE | 2019-03-12 19:12 | NUR ---
NURSE NOTES: Received patient from PHIL Fraga. patient is observed resting in bed, flat affect, no s/sx of pain noted at this time. vent to trach settings are as follows: Portex XLT: 8; AC: 12; TV: 450; FiO2: 35%; PEEP: 5. no s/sx of respiratory distress noted at this time. patient is currently receiving hemodialysis. Left upper chest permacath noted; dressing dry and intact. no IV site access at this time. will inform charge nurse. G-tube site is patent and intact; HOB elevated. G-tube feeding running at prescribed rate. bed in lowest position and locked, siderails up X3, call light within reach. will continue to monitor.
[2019-03-12] MEDS ORDERED: [UNRECOGNIZED DRUG - OTHER] TP (19:42)
[2019-03-12 20:00] VITALS: BP 121/80
[2019-03-12] MEDS ORDERED: NOVOLOG100 UNIT/4 SQ (20:19)
[2019-03-12] MEDS: Dyna-Hex 2% Top Sol 2oz TOPIC SCH (20:25)
--- NOTE | 2019-03-12 20:34 | NUR ---
NURSE NOTES: left message for Dr. Evans of lack of IV access. awaiting call back.
--- NOTE | 2019-03-12 20:36 | NUR ---
NURSE NOTES: received call back from Dr. Evans. per sadie Chavez to use patient's left upper chest permacath for emergency use.
[2019-03-12] MEDS ORDERED: Epoetin Alfa-EPBX (NON ESRD)10,000 unit/ml vial SUBQ SCH (21:00)
[2019-03-12] MEDS: Sorbitol Solution UD 30ml ORAL SCH (21:04)
--- NOTE | 2019-03-12 21:20 | NUR ---
NURSE NOTES: patient's residual was 175 cc. will hold feeding for 2 hours as per MD order.
--- NOTE | 2019-03-12 23:25 | NUR ---
NURSE NOTES: patient's residual was 300 cc. will hold feeding as per MD order. will continue to monitor.
[2019-03-13] VITALS: BP 155/66
[2019-03-13] MEDS: [UNRECOGNIZED DRUG - OTHER] OPHTHALM SCH ×6 (00:58→21:41)
[2019-03-13] MEDS: SYSTANE ULTRA OPHTHALM SCH ×6 (00:58→21:41)
--- NOTE | 2019-03-13 01:45 | NUR ---
NURSE NOTES: patient's residual is 150 cc. will continue to hold feeding as per MD order. patient is in stable condition. will continue to monitor.
[2019-03-13] MEDS: Sodium Chloride 3% 4ml Nebul Soln INH SCH ×6 (03:00→23:17)
[2019-03-13] MEDS: Ipratropium 0.02% Inh Soln 2.5ml UD HHN SCH ×6 (03:19→23:17)
[2019-03-13] MEDS: Albuterol ud Inhalation HHN SCH ×6 (03:19→23:17)
[2019-03-13 04:00] VITALS: BP 109/64
--- NOTE | 2019-03-13 04:00 | NUR ---
NURSE NOTES: patient's residual is 100 cc. will hold feeding as per MD order. patient is in stable condition. will continue to monitor.
[2019-03-13] MEDS: NovoLOG Insulin Flexpen SUBQ SCH ×4 (06:00→17:47)
--- NOTE | 2019-03-13 06:00 | NUR ---
NURSE NOTES: patient's feeding is 40 cc. will continue feeding at 40 cc/hr at this time. will continue to monitor.
--- NOTE | 2019-03-13 07:33 | General Progress Note ---
Assessment/Plan Problem List: (1) Tracheostomy malfunction ICD Codes: J95.03 - Malfunction of tracheostomy stoma SNOMED: 98858080 (2) Acute renal failure ICD Codes: N17.9 - Acute kidney failure, unspecified SNOMED: 66719691 (3) Pericardial effusion ICD Codes: I31.3 - Pericardial effusion (noninflammatory) SNOMED: 503804663 (4) Sepsis ICD Codes: A41.9 - Sepsis, unspecified organism SNOMED: 48802719 (5) Pneumonia ICD Codes: J18.9 - Pneumonia, unspecified organism SNOMED: 786544535 (6) Tracheostomy malfunction ICD Codes: J95.03 - Malfunction of tracheostomy stoma SNOMED: 58895197 (7) Hypotension ICD Codes: I95.9 - Hypotension, unspecified SNOMED: 41766436 (8) Fecal impaction ICD Codes: K56.41 - Fecal impaction SNOMED: 67934804 Status: stable Assessment/Plan: bowel regime ivf monitor renal fxn follow up labs skin care Subjective ROS Limited/Unobtainable: Yes Constitutional: Reports: malaise, weakness HEENT: Reports: no symptoms Cardiovascular: Reports: no symptoms Respiratory: Reports: no symptoms Gastrointestinal/Abdominal: Reports: constipated, difficulty swallowing Neurologic/Psychiatric: Reports: pre-existing deficit, seizure Endocrine: Reports: no symptoms Hematologic/Lymphatic: Reports: no symptoms Allergies: Coded Allergies: OLANZAPINE (Verified Allergy, Severe, RESP FAILURE, 11/25/13) VANCOMYCIN (Verified Allergy, Severe, 11/25/13) PIPERACILLIN (Verified Allergy, Intermediate, HIVES, 11/25/13) TAZOBACTAM (Verified Allergy, Intermediate, HIVES, 11/25/13) All Systems: reviewed and negative except above Subjective no events. no change. minimal stool output according to child care lead teacher. on the vent. unresponsive Objective Last 24 Hour Vital Signs Date Time Temp Pulse Resp B/P (MAP) Pulse Ox O2 Delivery O2 Flow Rate FiO2 03/13/19 05:16 83 14 35 03/13/19 04:00 35 03/13/19 04:00 98.1 83 16 109/64 (79) 100 03/13/19 04:00 Mechanical Ventilator 03/13/19 03:35 87 12 100 Mechanical Ventilator 35 87 12 35 03/13/19 03:23 84 03/13/19 01:12 81 12 35 03/13/19 00:00 Mechanical Ventilator 03/13/19 00:00 98.2 85 16 155/66 (95) 100 03/13/19 00:00 83 03/12/19 23:09 79 12 100 Mechanical Ventilator 35 79 12 35 03/12/19 21:06 84 124/67 03/12/19 21:00 87 14 35 03/12/19 20:00 83 03/12/19 20:00 98.1 84 17 121/80 (94) 100 03/12/19 20:00 Mechanical Ventilator 03/12/19 20:00 35 03/12/19 19:36 83 12 100 Mechanical Ventilator 35 82 12 35 03/12/19 17:12 79 13 35 03/12/19 16:06 82 14 100 Mechanical Ventilator 35 03/12/19 16:00 35 03/12/19 16:00 Mechanical Ventilator 03/12/19 16:00 74 03/12/19 16:00 98.0 70 16 122/61 (81) 98 03/12/19 15:56 78 14 100 Mechanical Ventilator 35 03/12/19 15:47 79 14 100 Mechanical Ventilator 35 03/12/19 15:37 77 14 100 Mechanical Ventilator 35 03/12/19 15:06 75 15 35 03/12/19 12:48 71 12 35 03/12/19 12:00 98.1 75 16 124/61 (82) 98 03/12/19 12:00 Mechanical Ventilator 03/12/19 12:00 35 03/12/19 12:00 70 03/12/19 11:54 74 14 100 Mechanical Ventilator 35 03/12/19 11:44 76 14 100 Mechanical Ventilator 35 03/12/19 11:40 75 14 100 03/12/19 11:30 71 14 99 Mechanical Ventilator 35 03/12/19 10:46 71 14 35 03/12/19 08:45 70 16 35 03/12/19 08:00 97.9 69 16 122/68 (86) 98 03/12/19 08:00 35 03/12/19 08:00 Mechanical Ventilator 03/12/19 07:40 64 03/12/19 07:39 65 12 100 Mechanical Ventilator 35 Intake and Output 03/12/19 03/13/19 19:00 07:00 Intake Total 430 ml 330 ml Balance 430 ml 330 ml Intake Free Water 120 ml 220 ml IV Total 250 ml Tube Feeding 60 ml 80 ml Other 30 ml # Bowel Movements 5 Height (Feet): 5 Height (Inches): 4.00 Weight (Pounds): 156 General Appearance: WD/WN, lethargic, confused Neck: supple Cardiovascular: normal rate, regular rhythm Respiratory/Chest: chest wall non-tender, lungs clear, normal breath sounds, no respiratory distress Abdomen: normal bowel sounds, non tender, soft, no organomegaly Edema: no edema noted Arm (L), no edema noted Arm (R), no edema noted Leg (L), no edema noted Leg (R), no edema noted Pedal (L), no edema noted Pedal (R), no edema noted Generalized Edema: trace edema Neurologic: unresponsive, aphasia Skin: normal pigmentation Pito Jones MD Mar 13, 2019 07:33
[2019-03-13] MEDS: Sorbitol Solution UD 30ml ORAL SCH ×2 (07:40→21:40)
--- NOTE | 2019-03-13 07:41 | NUR ---
RESPIRATORY NOTE: Received patient on vent with settings of AC R12, VT 450, FiO2 35%, PEEP +5. Patient has Portex Bivona size 8 cuffed. Vent settings are on and audible. Breathing treatment given, no adverse effects. Ambubag at bedside. Vent is connected to red outlet. Family refuses trach care and suction. Suction and trach care are done by caregiver and RT to assist. No signs of distress. Will continue to monitor.
--- NOTE | 2019-03-13 07:42 | NUR ---
HAND-OFF: Report given to PHIL Ramos. patient is in stable condition.
--- NOTE | 2019-03-13 07:43 | NUR ---
NURSE NOTES: Patient received lying in bed, opens eyes spontaneously, Addendum: 03/13/19 at 1146 by Richard Burciaga RN no signs of pain noted. On trach to vent, settings: AC- 12, TV-450, FiO2- 35%, PEEP -5, oxygen saturation 98%. Oral care provided. Respirations even and unlabored. Left upper chest PermaCath asymptomatic. Dressing dry and intact. Patient has no IV line, MD aware. On tube feeding Nepro at 50 ml/hr, residual is 40 ml, HOB elevated at 30 degree for aspiration precaution. Patient is anuric. Sinus rhythm on the monitor. Bed kept at lowest position. Safety measures implemented. Private nurse at bedside. Will continue to monitor.
[2019-03-13 08:00] VITALS: BP 105/67
--- NOTE | 2019-03-13 08:25 | Pulmonology Progress Note ---
Assessment/Plan Assessment/Plan respiratory failure chronic encephalopathy trach CRF GT constipation increase in residual hypertension diabetes PLAN care noted vent as is/ on full support feeds gi follow up HD and monitor lytes and monitor fluid status skin care and off load chronic care- monitor bowel movements monitor sugars impression, plan, and exam edited and reviewed in detail care discussed with RN Subjective ROS Limited/Unobtainable: Yes Allergies: Coded Allergies: OLANZAPINE (Verified Allergy, Severe, RESP FAILURE, 11/25/13) VANCOMYCIN (Verified Allergy, Severe, 11/25/13) PIPERACILLIN (Verified Allergy, Intermediate, HIVES, 11/25/13) TAZOBACTAM (Verified Allergy, Intermediate, HIVES, 11/25/13) Subjective care noted and reviewed d/w sister in detail d/w gi Objective Last 24 Hour Vital Signs Date Time Temp Pulse Resp B/P (MAP) Pulse Ox O2 Delivery O2 Flow Rate FiO2 03/13/19 08:00 35 03/13/19 08:00 Mechanical Ventilator 03/13/19 07:41 78 15 100 Mechanical Ventilator 35 77 12 35 03/13/19 05:16 83 14 35 03/13/19 04:00 35 03/13/19 04:00 98.1 83 16 109/64 (79) 100 03/13/19 04:00 Mechanical Ventilator 03/13/19 03:35 87 12 100 Mechanical Ventilator 35 87 12 35 03/13/19 03:23 84 03/13/19 01:12 81 12 35 03/13/19 00:00 Mechanical Ventilator 03/13/19 00:00 98.2 85 16 155/66 (95) 100 03/13/19 00:00 83 03/12/19 23:09 79 12 100 Mechanical Ventilator 35 79 12 35 03/12/19 21:06 84 124/67 03/12/19 21:00 87 14 35 03/12/19 20:00 83 03/12/19 20:00 98.1 84 17 121/80 (94) 100 03/12/19 20:00 Mechanical Ventilator 03/12/19 20:00 35 03/12/19 19:36 83 12 100 Mechanical Ventilator 35 82 12 35 03/12/19 17:12 79 13 35 03/12/19 16:06 82 14 100 Mechanical Ventilator 35 03/12/19 16:00 35 03/12/19 16:00 Mechanical Ventilator 03/12/19 16:00 74 03/12/19 16:00 98.0 70 16 122/61 (81) 98 03/12/19 15:56 78 14 100 Mechanical Ventilator 35 03/12/19 15:47 79 14 100 Mechanical Ventilator 35 03/12/19 15:37 77 14 100 Mechanical Ventilator 35 03/12/19 15:06 75 15 35 03/12/19 12:48 71 12 35 03/12/19 12:00 98.1 75 16 124/61 (82) 98 03/12/19 12:00 Mechanical Ventilator 03/12/19 12:00 35 03/12/19 12:00 70 03/12/19 11:54 74 14 100 Mechanical Ventilator 35 03/12/19 11:44 76 14 100 Mechanical Ventilator 35 03/12/19 11:40 75 14 100 03/12/19 11:30 71 14 99 Mechanical Ventilator 35 03/12/19 10:46 71 14 35 03/12/19 08:45 70 16 35 Intake and Output 03/12/19 03/13/19 19:00 07:00 Intake Total 430 ml 330 ml Balance 430 ml 330 ml Intake Free Water 120 ml 220 ml IV Total 250 ml Tube Feeding 60 ml 80 ml Other 30 ml # Bowel Movements 5 Objective WDWN NAD trach reduced breath sounds bilaterally without rhonchi or wheeze [id number] without MRG NABS nontender no HSM no CCE nonfocal poorly responsive at present skin exam noted gt feeds Current Medications Medications (Trade) Dose Ordered Sig/Alex Route PRN Reason Start Time Stop Time Status Last Admin Dose Admin Acetaminophen (Tylenol) 1,000 mg Q6H PRN ORAL Mild Pain/Temp > 100.5 03/11/19 16:30 04/10/19 16:29 Acetaminophen/ Hydrocodone Bitart (Harriet 5/325) 1 tab Q4H PRN ORAL Moderate Pain (Pain Scale 4-6) 03/11/19 16:45 03/18/19 16:44 Albuterol Sulfate (Proventil) 2.5 mg Q4HRT HHN 03/11/19 23:00 03/16/19 18:59 03/13/19 07:40 Albuterol Sulfate (Proventil) 2.5 mg Q6HRT PRN HHN Shortness of Breath 03/11/19 18:00 03/16/19 17:59 Barium Sulfate (Readi-Cat 2) 450 ml NOW PRN ORAL Radiology Procedure 03/11/19 11:15 03/13/19 11:05 Carvedilol (Coreg) 12.5 mg EVERY 12 HOURS GT 03/11/19 21:00 04/10/19 20:59 03/12/19 21:06 Chlorhexidine Gluconate (Rubina-Hex 2%) 1 applic DAILY@2000 TOPIC 03/12/19 20:00 04/11/19 19:59 03/12/19 20:25 Dextrose (Dextrose 50%) 25 ml Q30M PRN IV Hypoglycemia 03/11/19 17:15 04/10/19 17:14 Dextrose (Dextrose 50%) 50 ml Q30M PRN IV Hypoglycemia 03/11/19 17:15 04/10/19 17:14 Epoetin Amadou (Epoetin Amadou(ESRD on dialysis)) 10,000 unit ONCE A WEEK SUBQ 03/19/19 21:00 04/18/19 20:59 Insulin Aspart (NovoLOG) EVERY 6 HOURS SUBQ 03/11/19 18:00 04/10/19 17:59 03/12/19 11:23 Iohexol (OMNIPAQUE-300 100ml) 100 ml NOW PRN INJ Radiology Procedure 03/11/19 11:15 03/13/19 11:05 Ipratropium [place] (Atrovent) 500 mcg Q4HRT HHN 03/11/19 23:00 03/16/19 18:59 03/13/19 07:41 Ipratropium [place] (Atrovent) 500 mcg Q6H PRN HHN Shortness of Breath 03/11/19 16:00 03/16/19 15:59 Levothyroxine Sodium (Synthroid) 200 mcg QHS GT 03/11/19 21:00 04/10/19 20:59 03/12/19 21:04 Lorazepam (Ativan) 0.5 mg Q6H PRN GT For Anxiety 03/11/19 16:00 03/18/19 15:59 Multivitamins (Multivitamins) 1 tab DAILY GT 03/12/19 09:00 04/11/19 08:59 03/12/19 08:51 Patient Own Medication (Patient's Own Med) 1 ea DAILYPRN PRN RECTAL constipation 03/11/19 21:15 04/10/19 21:14 03/12/19 00:19 Patient Own Medication (Patient's Own Med) 1 ea Q4HR OPHTHALM 03/11/19 21:00 04/10/19 20:59 03/13/19 05:30 Patient Own Medication (Patient's Own Med) 2 ea Q4HR OPHTHALM 03/11/19 21:00 04/10/19 20:59 03/13/19 05:30 Saccharomyces Boulardii (Florastor) 250 mg TWICE A DAY GT 03/11/19 18:00 04/10/19 17:59 Sodium Chloride (Sodium Chloride Dey-Nicolas 3%) 5 ml Q4HRT INH 03/11/19 23:00 04/10/19 16:59 03/13/19 08:04 Sorbitol (Sorbitol) 30 ml QHS ORAL 03/12/19 21:00 04/11/19 20:59 03/12/19 21:04 Vitamin B Complex/ Vit C/Folic Acid (Nephrovite) 1 tab DAILY GT 03/12/19 09:00 04/11/19 08:59 03/12/19 08:51 Maykel Evans MD Mar 13, 2019 08:25
--- NOTE | 2019-03-13 08:30 | History and Physical Report ---
DATE OF ADMISSION: 03/11/2019 CHIEF COMPLAINT: Abdominal pain and constipation. HISTORY OF PRESENT ILLNESS: The patient is an unfortunate 64-year-old female. She has a history of anoxic encephalopathy, chronic respiratory failure, diabetes and hypertension. She was brought in by family and caretakers with complaints of constipation. According to the patient's editing internship, she has diminished stool output that started about a week ago. There are no reports of any vomiting. There has been no changes in medications or the patient's diet. The patient's laboratories were significant for low sodium 131 and elevated BUN and creatinine of [address] scan of the abdomen showed fatty liver, atelectasis, no evidence of any obstruction. The patient is now admitted for further evaluation and care. PAST MEDICAL HISTORY: As above. PAST SURGICAL HISTORY: Includes a trach and a G-tube. CURRENT MEDICATIONS: Reconciled and reviewed. ALLERGIES: Include Zyprexa, piperacillin tazobactam, vancomycin. FAMILY HISTORY: Noncontributory. SOCIAL HISTORY: Negative for tobacco, ethanol, or drugs. REVIEW OF SYSTEMS: From the patient is unobtainable as she is nonverbal. PHYSICAL EXAMINATION: VITAL SIGNS: Temperature 98.2, pulse 85, respirations 16, blood pressure 155/66. GENERAL: The patient is a chronically ill-appearing female, in no apparent distress. She is unresponsive at baseline. Her oropharynx is clear. Mucous membranes are dry. NECK: Supple. HEART: Regular rate and rhythm. LUNGS: Clear. ABDOMEN: Soft, nontender nondistended. Normoactive bowel sounds. EXTREMITIES: Without clubbing, cyanosis, or edema. NEUROLOGICAL: The patient is nonverbal, does not follow commands. LABORATORY DATA: Sodium 131, potassium 3.6, BUN 49, creatinine 1.7. White count 8, hemoglobin 13, hematocrit 40. ASSESSMENT: This is an an unfortunate elderly 64-year-old female with history of anoxic encephalopathy, obesity, diabetes, hypertension admitted with diminished stool output secondary to constipation. PLAN: 1. GI and Pulmonary consultations. 2. IV hydration. 3. Bowel regimen will be ordered for the patient. 4. We will continue vent support and respiratory treatments. 5. Check thyroid function tests. 6. Monitor electrolytes. Pito Jones M.D. DR: Susannah JOB#: [id number] CC:
[2019-03-13] MEDS: Carvedilol 12.5mg tab GT SCH ×2 (09:00→21:00)
[2019-03-13] MEDS: Nephrovite tab (Rena-Vite) GT SCH (09:15)
[2019-03-13 09:33] LABS: ANION GAP 14 mmol/L (5-15); BLOOD UREA NITROGEN 34 mg/dL (7-18); CALCIUM 9.2 MG/DL (8.5-10.1); CARBON DIOXIDE 24 MMOL/L (21-32); CHLORIDE 97 MMOL/L (98-107); CREATININE 1.6 MG/DL (0.55-1.30); POTASSIUM 3.9 MMOL/L (3.5-5.1); SODIUM 135 MMOL/L (136-145)
--- NOTE | 2019-03-13 11:45 | NUR ---
NURSE NOTES: Dr. Evans stated to come this afternoon or tomorrow to change patient's trach as they were doing it when patient was at home, just to have trach ready at bedside. Private nurse Kaelyn at bedside aware. MD did not specify what time he will come.
[2019-03-13 12:06] VITALS: BP 124/74
--- NOTE | 2019-03-13 12:30 | NUR ---
NURSE NOTES: Patient repositioned, residual checked, it is increased, 200 ml. Will hold feeding as ordered. Oral care provided.
--- NOTE | 2019-03-13 14:35 | Nephrology Progress Note ---
Assessment/Plan Assessment 1) VDRF 2) ESRD 3) DM 4) High residual TF, ? Gastroparesis Plan: HD tomorrow GI will order UGI xray Liquicel per gt Subjective Subjective She did not tolerate tube feeding due to high residual, had HD yesterday, still on the vent Objective Objective Last 24 Hour Vital Signs Date Time Temp Pulse Resp B/P (MAP) Pulse Ox O2 Delivery O2 Flow Rate FiO2 03/13/19 12:06 98.2 83 18 124/74 (91) 98 03/13/19 12:00 35 03/13/19 11:28 82 03/13/19 11:25 82 14 100 Mechanical Ventilator 35 83 14 35 03/13/19 09:23 77 12 35 03/13/19 08:00 35 03/13/19 08:00 98.0 79 16 105/67 (80) 98 03/13/19 08:00 Mechanical Ventilator 03/13/19 08:00 80 03/13/19 07:41 78 15 100 Mechanical Ventilator 35 77 12 35 03/13/19 05:16 83 14 35 03/13/19 04:00 35 03/13/19 04:00 98.1 83 16 109/64 (79) 100 03/13/19 04:00 Mechanical Ventilator 03/13/19 03:35 87 12 100 Mechanical Ventilator 35 87 12 35 03/13/19 03:23 84 03/13/19 01:12 81 12 35 03/13/19 00:00 Mechanical Ventilator 03/13/19 00:00 98.2 85 16 155/66 (95) 100 03/13/19 00:00 83 03/12/19 23:09 79 12 100 Mechanical Ventilator 35 79 12 35 03/12/19 21:06 84 124/67 03/12/19 21:00 87 14 35 03/12/19 20:00 83 03/12/19 20:00 98.1 84 17 121/80 (94) 100 03/12/19 20:00 Mechanical Ventilator 03/12/19 20:00 35 03/12/19 19:36 83 12 100 Mechanical Ventilator 35 82 12 35 03/12/19 17:12 79 13 35 03/12/19 16:06 82 14 100 Mechanical Ventilator 35 03/12/19 16:00 35 03/12/19 16:00 Mechanical Ventilator 03/12/19 16:00 74 03/12/19 16:00 98.0 70 16 122/61 (81) 98 03/12/19 15:56 78 14 100 Mechanical Ventilator 35 03/12/19 15:47 79 14 100 Mechanical Ventilator 35 03/12/19 15:37 77 14 100 Mechanical Ventilator 35 03/12/19 15:06 75 15 35 Intake and Output 03/12/19 03/13/19 19:00 07:00 Intake Total 430 ml 330 ml Balance 430 ml 330 ml Intake Free Water 120 ml 220 ml IV Total 250 ml Tube Feeding 60 ml 80 ml Other 30 ml # Bowel Movements 5 Laboratory Tests 03/13/19 08:50: Sodium Level 135L, Potassium Level 3.9, Chloride Level 97L, Carbon Dioxide Level 24, Anion Gap 14, Blood Urea Nitrogen 34H, Creatinine 1.6H, Estimat Glomerular Filtration Rate 32.4, Glucose Level 184H, Calcium Level 9.2 Height (Feet): 5 Height (Inches): 4.00 Weight (Pounds): 156 General Appearance: WD/WN EENT: PERRL/EOMI Neck: non-tender Cardiovascular: normal rate, regular rhythm Respiratory/Chest: lungs clear Abdomen: non tender, soft Extremities: non-tender Ede Thakur MD Mar 13, 2019 14:35
--- NOTE | 2019-03-13 14:45 | NUR ---
NURSE NOTES: Discussed with Khadijah Chavez's concerns and wishes for patient's trach change and pre-medication. Dr. Evans agreed to do it tomorrow around 9AM. Private nurse aware and Khadijah made aware.
--- NOTE | 2019-03-13 14:57 | NUR ---
NURSE NOTES: Called [facility], spoke to Duc, will await callback to confirm HD tomorrow.
[2019-03-13] MEDS: BISACODYL 10 MG RECTAL PRN (15:22)
[2019-03-13 16:00] VITALS: BP 136/67
--- NOTE | 2019-03-13 17:00 | NUR ---
NURSE NOTES: Residual checked, still remained high, Khadijah aware. Will contact Dr. Hu.
--- NOTE | 2019-03-13 17:30 | NUR ---
NURSE NOTES: Dr. Hu contacted x2, patient's sister had concerns to discuss with MD for protein supplement.
--- NOTE | 2019-03-13 19:40 | NUR ---
HAND-OFF: Report given to PHIL Guallpa. Patient stable. Khadijah and private nurse at bedside.
[2019-03-13 20:00] VITALS: BP 126/68
--- NOTE | 2019-03-13 20:31 | General Progress Note ---
Assessment/Plan Status: stable Assessment/Plan: Assessment - Resolved stool impaction ( per CT and rectal exam) - TF intolerance - sister declines Reglan trial - Resp failure / trach - renal failure - contracted / vegetative state - high decub risk Recommendations - TF as tolerated - check residuals and hold if elevated - check per GT UGI with SBFT in am - sorbitol qhs - Elevate HOB - decub prevention - PPI trial - check C Diff Subjective Allergies: Coded Allergies: OLANZAPINE (Verified Allergy, Severe, RESP FAILURE, 11/25/13) VANCOMYCIN (Verified Allergy, Severe, 11/25/13) PIPERACILLIN (Verified Allergy, Intermediate, HIVES, 11/25/13) TAZOBACTAM (Verified Allergy, Intermediate, HIVES, 11/25/13) 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 Gave OK to RN for sister to use own protein supplement Objective Last 24 Hour Vital Signs Date Time Temp Pulse Resp B/P (MAP) Pulse Ox O2 Delivery O2 Flow Rate FiO2 03/13/19 19:38 87 18 99 Mechanical Ventilator 35 85 12 35 03/13/19 16:45 84 16 100 Mechanical Ventilator 35 84 14 35 03/13/19 16:00 Mechanical Ventilator 03/13/19 16:00 35 03/13/19 16:00 84 03/13/19 16:00 98.5 85 17 136/67 (90) 98 03/13/19 15:30 84 14 100 Mechanical Ventilator 35 84 14 35 03/13/19 13:25 83 13 100 Mechanical Ventilator 35 84 14 35 03/13/19 12:06 98.2 83 18 124/74 (91) 98 03/13/19 12:00 35 03/13/19 12:00 Mechanical Ventilator 03/13/19 11:28 82 03/13/19 11:25 82 14 100 Mechanical Ventilator 35 83 14 35 03/13/19 09:23 77 12 35 03/13/19 08:00 35 03/13/19 08:00 98.0 79 16 105/67 (80) 98 03/13/19 08:00 Mechanical Ventilator 03/13/19 08:00 80 03/13/19 07:41 78 15 100 Mechanical Ventilator 35 77 12 35 03/13/19 05:16 83 14 35 03/13/19 04:00 35 03/13/19 04:00 98.1 83 16 109/64 (79) 100 03/13/19 04:00 Mechanical Ventilator 03/13/19 03:35 87 12 100 Mechanical Ventilator 35 87 12 35 03/13/19 03:23 84 03/13/19 01:12 81 12 35 03/13/19 00:00 Mechanical Ventilator 03/13/19 00:00 98.2 85 16 155/66 (95) 100 03/13/19 00:00 83 03/12/19 23:09 79 12 100 Mechanical Ventilator 35 79 12 35 03/12/19 21:06 84 124/67 03/12/19 21:00 87 14 35 Intake and Output 03/12/19 03/13/19 19:00 07:00 Intake Total 430 ml 330 ml Balance 430 ml 330 ml Intake Free Water 120 ml 220 ml IV Total 250 ml Tube Feeding 60 ml 80 ml Other 30 ml # Bowel Movements 5 Laboratory Tests 03/13/19 08:50: Sodium Level 135L, Potassium Level 3.9, Chloride Level 97L, Carbon Dioxide Level 24, Anion Gap 14, Blood Urea Nitrogen 34H, Creatinine 1.6H, Estimat Glomerular Filtration Rate 32.4, Glucose Level 184H, Calcium Level 9.2 Height (Feet): 5 Height (Inches): 4.00 Weight (Pounds): 156 Objective Debilitated nonverbal woman unresponsive, comatose, eyes closed NCAT (+) trach coarse BS RR abd soft , GT in good position (++) contracted extremities Neuro Coma, contracted Emily Hu MD Mar 13, 2019 20:31
[2019-03-13] MEDS ORDERED: Barium EZ Gas II granules MC PRN (20:45)
[2019-03-13] MEDS: Pantoprazole Inj IVP SCH (21:00)
--- NOTE | 2019-03-13 21:00 | NUR ---
NURSE NOTES: patient's residual is 250 cc at this time. will continue to hold feeding as per MD order. patient is in stable condition. will continue to monitor.
[2019-03-13] MEDS: Dyna-Hex 2% Top Sol 2oz TOPIC SCH (21:19)
[2019-03-13] MEDS ORDERED: HYDROcodone/Acetamin 5/325 tab ORAL PRN (23:00)
[2019-03-14] VITALS: BP 112/67
[2019-03-14] MEDS: NovoLOG Insulin Flexpen SUBQ SCH ×5 (00:16→23:28)
[2019-03-14] MEDS: SYSTANE ULTRA OPHTHALM SCH ×6 (01:08→21:49)
[2019-03-14] MEDS: [UNRECOGNIZED DRUG - OTHER] OPHTHALM SCH ×6 (01:08→21:49)
--- NOTE | 2019-03-14 01:15 | NUR ---
NURSE NOTES: patient's residual is 150 cc at this time. will continue to hold feeding as per MD order. patient is in stable condition. will continue to monitor.
[2019-03-14] MEDS: Sodium Chloride 3% 4ml Nebul Soln INH SCH ×5 (03:00→12:49)
[2019-03-14] MEDS: Ipratropium 0.02% Inh Soln 2.5ml UD HHN SCH ×6 (03:38→22:45)
[2019-03-14] MEDS: Albuterol ud Inhalation HHN SCH ×6 (03:38→22:45)
[2019-03-14 04:00] VITALS: BP 104/64
--- NOTE | 2019-03-14 06:04 | General Progress Note ---
Assessment/Plan Problem List: (1) Tracheostomy malfunction ICD Codes: J95.03 - Malfunction of tracheostomy stoma SNOMED: 94683877 (2) Acute renal failure ICD Codes: N17.9 - Acute kidney failure, unspecified SNOMED: 75822005 (3) Pericardial effusion ICD Codes: I31.3 - Pericardial effusion (noninflammatory) SNOMED: 452031717 (4) Sepsis ICD Codes: A41.9 - Sepsis, unspecified organism SNOMED: 86497474 (5) Pneumonia ICD Codes: J18.9 - Pneumonia, unspecified organism SNOMED: 046421964 (6) Tracheostomy malfunction ICD Codes: J95.03 - Malfunction of tracheostomy stoma SNOMED: 27185577 (7) Hypotension ICD Codes: I95.9 - Hypotension, unspecified SNOMED: 43900817 (8) Fecal impaction ICD Codes: K56.41 - Fecal impaction SNOMED: 14997539 Status: stable Assessment/Plan: bowel regime ivf monitor renal fxn upper gi skin care Subjective ROS Limited/Unobtainable: No Constitutional: Reports: malaise, weakness HEENT: Reports: no symptoms Cardiovascular: Reports: no symptoms Respiratory: Reports: no symptoms Gastrointestinal/Abdominal: Reports: abdomen distended Genitourinary: Reports: no symptoms Neurologic/Psychiatric: Reports: pre-existing deficit Endocrine: Reports: no symptoms Hematologic/Lymphatic: Reports: no symptoms Allergies: Coded Allergies: OLANZAPINE (Verified Allergy, Severe, RESP FAILURE, 11/25/13) VANCOMYCIN (Verified Allergy, Severe, 11/25/13) PIPERACILLIN (Verified Allergy, Intermediate, HIVES, 11/25/13) TAZOBACTAM (Verified Allergy, Intermediate, HIVES, 11/25/13) All Systems: reviewed and negative except above Subjective no change. still with high residuals. no bowel movements. scheduled for upper gi today Objective Last 24 Hour Vital Signs Date Time Temp Pulse Resp B/P (MAP) Pulse Ox O2 Delivery O2 Flow Rate FiO2 03/14/19 05:00 77 18 35 03/14/19 04:00 97.5 74 14 104/64 (77) 97 03/14/19 04:00 Mechanical Ventilator 03/14/19 04:00 78 03/14/19 04:00 35 03/14/19 03:38 89 16 98 Mechanical Ventilator 35 90 12 35 03/14/19 01:18 78 18 35 03/14/19 00:00 78 03/14/19 00:00 97.6 79 14 112/67 (82) 98 03/14/19 00:00 Mechanical Ventilator 03/13/19 23:17 78 18 99 Mechanical Ventilator 35 82 12 35 03/13/19 21:15 84 18 35 03/13/19 20:00 35 03/13/19 20:00 86 03/13/19 20:00 Mechanical Ventilator 03/13/19 20:00 98.1 84 12 126/68 (87) 99 03/13/19 19:38 87 18 99 Mechanical Ventilator 35 85 12 35 03/13/19 16:45 84 16 100 Mechanical Ventilator 35 84 14 35 03/13/19 16:00 Mechanical Ventilator 03/13/19 16:00 35 03/13/19 16:00 84 03/13/19 16:00 98.5 85 17 136/67 (90) 98 03/13/19 15:30 84 14 100 Mechanical Ventilator 35 84 14 35 03/13/19 13:25 83 13 100 Mechanical Ventilator 35 84 14 35 03/13/19 12:06 98.2 83 18 124/74 (91) 98 03/13/19 12:00 35 03/13/19 12:00 Mechanical Ventilator 03/13/19 11:28 82 03/13/19 11:25 82 14 100 Mechanical Ventilator 35 83 14 35 03/13/19 09:23 77 12 35 03/13/19 08:00 35 03/13/19 08:00 98.0 79 16 105/67 (80) 98 03/13/19 08:00 Mechanical Ventilator 03/13/19 08:00 80 03/13/19 07:41 78 15 100 Mechanical Ventilator 35 77 12 35 Intake and Output 03/13/19 03/14/19 18:59 06:59 Intake Total 310 ml 20 ml Balance 310 ml 20 ml Intake Free Water 70 ml 20 ml Tube Feeding 240 ml 0 ml Laboratory Tests 03/13/19 08:50: Sodium Level 135L, Potassium Level 3.9, Chloride Level 97L, Carbon Dioxide Level 24, Anion Gap 14, Blood Urea Nitrogen 34H, Creatinine 1.6H, Estimat Glomerular Filtration Rate 32.4, Glucose Level 184H, Calcium Level 9.2 Height (Feet): 5 Height (Inches): 4.00 Weight (Pounds): 156 General Appearance: WD/WN, lethargic, confused Neck: supple Cardiovascular: normal rate, regular rhythm Respiratory/Chest: chest wall non-tender, lungs clear, normal breath sounds, no respiratory distress, no accessory muscle use Abdomen: normal bowel sounds, non tender, soft, no organomegaly, no mass Edema: no edema noted Arm (L), no edema noted Arm (R), no edema noted Leg (L), no edema noted Leg (R), no edema noted Pedal (L), no edema noted Pedal (R), no edema noted Generalized Pito Jones MD Mar 14, 2019 06:04
--- NOTE | 2019-03-14 07:20 | NUR ---
NURSE NOTES: Report received from PHIL Guallpa
--- NOTE | 2019-03-14 07:46 | NUR ---
HAND-OFF: Report given to PHIL Fontenot. patient is in stable condition. Addendum: 03/14/19 at 1026 by Anju Martinez RN ALL DUE MEDS WILL BE HELD UNTIL DIALYSIS DONE.ONGOING DIALYSIS
[2019-03-14 08:00] VITALS: BP 105/60
--- NOTE | 2019-03-14 08:03 | NUR ---
NURSE NOTES: Pt asleep when received.No apparent distress and afebrile.On trach and vent PORTEX 8, ac 12 vT 450 FIo2 35% PEEP 5. career information specialist at bedside, turned and repositioned for skin management. Mouth care done and suctioned as tolerated.GT feeding on hold, starting on dialysis. will continue to monitor
[2019-03-14] MEDS: Carvedilol 12.5mg tab GT SCH ×2 (09:00→21:00)
[2019-03-14] MEDS ORDERED: Heparin Sod 1000 units/ml 10ml IV PRN (09:00)
--- NOTE | 2019-03-14 10:07 | General Progress Note ---
Assessment/Plan Status: stable Assessment/Plan: Assessment - Resolved stool impaction ( per CT and rectal exam) - TF intolerance - sister declines Reglan trial - Resp failure / trach - renal failure - contracted / vegetative state - high decub risk Recommendations - hold TF - EGD with G--> J today - sorbitol qhs - Elevate HOB - decub prevention - PPI trial - check C Diff Subjective Allergies: Coded Allergies: OLANZAPINE (Verified Allergy, Severe, RESP FAILURE, 11/25/13) VANCOMYCIN (Verified Allergy, Severe, 11/25/13) PIPERACILLIN (Verified Allergy, Intermediate, HIVES, 11/25/13) TAZOBACTAM (Verified Allergy, Intermediate, HIVES, 11/25/13) Subjective above noted d/w radiology and daughter at length fluoroscopy room not operational at this time procedure changed to EGD advised DTR re G--> J conversion, agreed (+) BM pr RN Objective Last 24 Hour Vital Signs Date Time Temp Pulse Resp B/P (MAP) Pulse Ox O2 Delivery O2 Flow Rate FiO2 03/14/19 09:25 82 15 Mechanical Ventilator 35 03/14/19 07:14 74 14 Mechanical Ventilator 35 35 03/14/19 05:00 77 18 35 03/14/19 04:00 97.5 74 14 104/64 (77) 97 03/14/19 04:00 Mechanical Ventilator 03/14/19 04:00 78 03/14/19 04:00 35 03/14/19 03:38 89 16 98 Mechanical Ventilator 35 90 12 35 03/14/19 01:18 78 18 35 03/14/19 00:00 78 03/14/19 00:00 97.6 79 14 112/67 (82) 98 03/14/19 00:00 Mechanical Ventilator 03/13/19 23:17 78 18 99 Mechanical Ventilator 35 82 12 35 03/13/19 21:15 84 18 35 03/13/19 20:00 35 03/13/19 20:00 86 03/13/19 20:00 Mechanical Ventilator 03/13/19 20:00 98.1 84 12 126/68 (87) 99 03/13/19 19:38 87 18 99 Mechanical Ventilator 35 85 12 35 03/13/19 16:45 84 16 100 Mechanical Ventilator 35 84 14 35 03/13/19 16:00 Mechanical Ventilator 03/13/19 16:00 35 03/13/19 16:00 84 03/13/19 16:00 98.5 85 17 136/67 (90) 98 03/13/19 15:30 84 14 100 Mechanical Ventilator 35 84 14 35 03/13/19 13:25 83 13 100 Mechanical Ventilator 35 84 14 35 03/13/19 12:06 98.2 83 18 124/74 (91) 98 03/13/19 12:00 35 03/13/19 12:00 Mechanical Ventilator 03/13/19 11:28 82 03/13/19 11:25 82 14 100 Mechanical Ventilator 35 83 14 35 Intake and Output 03/13/19 03/14/19 19:00 07:00 Intake Total 270 ml 30 ml Balance 270 ml 30 ml Intake Free Water 70 ml 30 ml Tube Feeding 200 ml 0 ml Height (Feet): 5 Height (Inches): 4.00 Weight (Pounds): 156 Objective Debilitated nonverbal woman unresponsive, comatose, eyes closed NCAT (+) trach coarse BS RR abd soft , GT in good position (++) contracted extremities Neuro Coma, contracted Emily Hu MD Mar 14, 2019 10:07
--- NOTE | 2019-03-14 10:30 | NUR ---
NURSE NOTES: Ongoing dialysis, no acute distress, tolerate well.Kept on close monitoring. Reached the sister Khadijah for Upper GI to r/o gastroparesis, but she requested more explanation. Dr Andrade made aware. Patient seen also by Dr Evans for trach replacement but pt on dialysis as stated he will come back later in the afternoon.daughter made aware.
--- NOTE | 2019-03-14 10:34 | NUR ---
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, HD/ 51.5kg abw 22-31 kcals/kg 3614-3694 total kcals 1.2-2 g protein/kg 62-103 g total protein 20-22 mL/kg 6226-5088 total fluid mLs NUTRITION DIAGNOSIS: 1) Swallowing difficulty R/T respiratory status as evidenced by pt vent dep via trach w/ PEG feedings CURRENT TF: Nepro @ 50ml/hr x 22 hrs (On Synthroid QD) ENTERAL NUTRITION RECOMMENDATIONS: Nepro @ 40ml/hr x 22 hrs to provide 880ml, 1584kcal, 71g prot, 640ml free H20 - Rec to LOWER goal rate to 40ml/hr x 22 hrs - Hold 1 hr before and after Synthroid med - HOB >45 degrees/Free H20 flushes per MD ADDITIONAL RECOMMENDATIONS: 1) RECALIBRATED bedscale wt for accurate CBW 2) Monitor lytes, replete as needed 3) Monitor TF tolerance: admitted w/ c/o elev TF residuals -> Monitor need for prokinetics .
[2019-03-14] MEDS: Pantoprazole Inj IVP SCH (11:27)
[2019-03-14] MEDS: Nephrovite tab (Rena-Vite) GT SCH (11:27)
[2019-03-14 12:00] VITALS: BP 145/78
--- NOTE | 2019-03-14 12:07 | NUR ---
NURSE NOTES: Patient turned and repositioned,dialysis done,300cc out.Mouth done.HOB elevated to prevent aspuration.senior facilities manager at bedside with daughter.Call light within reach.
--- NOTE | 2019-03-14 12:19 | NUR ---
GUEST ATTENDANTCLOD PULLER SI: RESP FAILURE TRACH/VENT DEPENDENT T. 97.9 HR 77 RR 16 B/P 105/60 AC 12 TV 480 FIO2 35% PEEP 5 IS; HEPARIN SUBC PROTONIX IV ALB/ATRO INLINE TX EGD W/J TUBE PLACEMENT IN AM STEP DOWN STATUS
--- NOTE | 2019-03-14 13:05 | NUR ---
NURSE NOTES: Eye drop and eye ointment not given , too close to previous administration, delayed due to dialysis
--- NOTE | 2019-03-14 13:29 | NUR ---
NURSE NOTES: Per daughter request, insulin held.Also she want to change the NaCl 3% breathing treatment to just Normal saline.Dr Evans made aware with new order noted
[2019-03-14] MEDS ORDERED: LR 1000ml ONE (14:00)
[2019-03-14] MEDS ORDERED: Propofol 200mg/20ml IV ONE (14:00)
[2019-03-14] MEDS ORDERED: Lidocaine 1% MPF 10mg/ml 5ml ONE (14:00)
--- NOTE | 2019-03-14 14:10 | NUR ---
NURSE NOTES: Pt turned and repositioned, daughter at bedside and update given. Call light within easy reach.Kept clean dry and comfortable
--- NOTE | 2019-03-14 14:26 | Anethesia Preoperative Eval ---
Anesthesia Pre-op PMH/ROS General Date of Evaluation: Mar 14, 2019 Time of Evaluation: 14:18 Anesthesiologist: Karissa ASA Score: ASA 4 Mallampati Score Class I : Soft palate, uvula, fauces, pillars visible Class II: Soft palate, uvula, fauces visible Class III: Soft palate, base of uvula visible Class IV: Only hard plate visible Mallampati Classification: Class III Surgeon: Mayte Diagnosis: Malnutrition Surgical Procedure: EGD, G to J tube Anesthesia History: none Family History: no anesthesia problems Allergies: Coded Allergies: OLANZAPINE (Verified Allergy, Severe, RESP FAILURE, 11/25/13) VANCOMYCIN (Verified Allergy, Severe, 11/25/13) PIPERACILLIN (Verified Allergy, Intermediate, HIVES, 11/25/13) TAZOBACTAM (Verified Allergy, Intermediate, HIVES, 11/25/13) Medications: see eMAR Patient NPO?: Yes Past Medical History Cardiovascular: Reports: HTN Pulmonary: Reports: COPD, other - Trach Gastrointestinal/Genitourinary: Reports: ESRD Neurologic/Psychiatric: Reports: other - Anoxic Brain Injury Endocrine: Reports: hypothyroidism PSxH Narrative: Trach Anesthesia Pre-op Phys. Exam Physician Exam Last Vital Signs Date Time Temp Pulse Resp B/P (MAP) Pulse Ox O2 Delivery O2 Flow Rate FiO2 03/14/19 12:53 87 15 99 Mechanical Ventilator 35 86 22 35 03/14/19 12:00 97.2 145/78 (100) Constitutional: NAD Neurologic: CN 2-12 intact Cardiovascular: RRR Respiratory: CTA Gastrointestinal: S/NT/ND Airway Exam Mallampati Score: Class III MO: limited ROM: limited Teeth: missing Anesthesia Pre-op A/P Risk Assessment & Plan Assessment: ASA 4E Plan: GA Status Change Before Surgery: No Steve Hancock MD Mar 14, 2019 14:26
--- NOTE | 2019-03-14 14:34 | Immediate Post-Op Evaluation ---
Immediate Post-Op Evalulation Immediate Post-Op Evalulation Procedure: EGD, G to J Tube Date of Evaluation: Mar 14, 2019 Time of Evaluation: 15:49 IV Fluids: 200 LR Blood Products: 0 Estimated Blood Loss: 3 Urinary Output: 0 Blood Pressure Systolic: 170 Blood Pressure Diastolic: 68 Pulse Rate: 91 Respiratory Rate: 20 - Mech Vent O2 Sat by Pulse Oximetry: 97 Temperature (Fahrenheit): 98 Pain Score (1-10): 0 Nausea: No Vomiting: No Complications 0 Patient Status: no response, patent, ventilated, none Hydration Status: adequate Steve Hancock MD Mar 14, 2019 14:34
--- NOTE | 2019-03-14 14:38 | 48 Hour Post Anesthesia Eval ---
Post Anesthesia Evaluation Procedure: EGD, G to J Tube Date of Evaluation: Mar 14, 2019 Time of Evaluation: 17:54 Blood Pressure Systolic: 143 0: 74 Pulse Rate: 83 Respiratory Rate: 20 - Mech Vent Temperature (Fahrenheit): 98 O2 Sat by Pulse Oximetry: 98 Airway: patent Nausea: No Vomiting: No Pain Intensity: 0 Hydration Status: adequate Cardiopulmonary Status: Stable Mental Status/LOC: patient returned to baseline Follow-up Care/Observations: 0 Post-Anesthesia Complications: 0 Follow-up care needed: N/A Steve Hancock MD Mar 14, 2019 14:38
--- NOTE | 2019-03-14 14:52 | Pre-Procedure Note/Attestation ---
Pre-Procedure Note/Attestation Complete Prior to Procedure Planned Procedure: not applicable Procedure Narrative: Endoscopy with possible biopsy, polypectomy, hemostasis, dilation , and gastrostomy to jejunostomy conversion Attestation I attest that I discussed the nature of the procedure; its benefits; risks and complications; and alternatives (and the risks and benefits of such alternatives ), prior to the procedure, with the patient (or the patient's legal medical customer service representative). I attest that, if there was a reasonable possibility of needing a blood transfusion, the patient (or the patient's legal medical customer service representative) was given the [facility] standardized written summary, pursuant to the [place] Blood Safety Act ([place] Health and Safety Code # 1645, as amended). I attest that I re-evaluated the patient just prior to the surgery and that there has been no change in the patient's H&P, except as documented below: Emily Hu MD Mar 14, 2019 14:52
--- NOTE | 2019-03-14 14:55 | Nephrology Progress Note ---
Assessment/Plan Assessment 1) VDRF 2) ESRD 3) DM 4) High residual TF, ? Gastroparesis Plan: HD was done today Awaiting GI to do the work up Obtain KUB Subjective Subjective She had HD today, Still on the vent, the Radioplogy Xray machine Broken, Xray was not done, supposed to get EGD and possible G-J tube placement Objective Objective Last 24 Hour Vital Signs Date Time Temp Pulse Resp B/P (MAP) Pulse Ox O2 Delivery O2 Flow Rate FiO2 03/14/19 12:53 87 15 99 Mechanical Ventilator 35 86 22 35 03/14/19 12:00 81 03/14/19 12:00 Mechanical Ventilator 03/14/19 12:00 97.2 84 16 145/78 (100) 97 03/14/19 12:00 35 03/14/19 11:01 84 14 99 Mechanical Ventilator 35 86 22 35 03/14/19 09:25 82 15 Mechanical Ventilator 35 03/14/19 09:00 68 101/60 03/14/19 08:00 35 03/14/19 08:00 Mechanical Ventilator 03/14/19 08:00 73 03/14/19 08:00 97.9 77 16 105/60 (75) 97 03/14/19 07:14 74 14 Mechanical Ventilator 35 35 03/14/19 05:00 77 18 35 03/14/19 04:00 97.5 74 14 104/64 (77) 97 03/14/19 04:00 Mechanical Ventilator 03/14/19 04:00 78 03/14/19 04:00 35 03/14/19 03:38 89 16 98 Mechanical Ventilator 35 90 12 35 03/14/19 01:18 78 18 35 03/14/19 00:00 78 03/14/19 00:00 97.6 79 14 112/67 (82) 98 03/14/19 00:00 Mechanical Ventilator 03/13/19 23:17 78 18 99 Mechanical Ventilator 35 82 12 35 03/13/19 21:15 84 18 35 03/13/19 20:00 35 03/13/19 20:00 86 03/13/19 20:00 Mechanical Ventilator 03/13/19 20:00 98.1 84 12 126/68 (87) 99 03/13/19 19:38 87 18 99 Mechanical Ventilator 35 85 12 35 9/19/19 16:45 84 16 100 Mechanical Ventilator 35 84 14 35 03/13/19 16:00 Mechanical Ventilator 03/13/19 16:00 35 03/13/19 16:00 84 03/13/19 16:00 98.5 85 17 136/67 (90) 98 03/13/19 15:30 84 14 100 Mechanical Ventilator 35 84 14 35 Intake and Output 03/13/19 03/14/19 19:00 07:00 Intake Total 270 ml 30 ml Balance 270 ml 30 ml Intake Free Water 70 ml 30 ml Tube Feeding 200 ml 0 ml Height (Feet): 5 Height (Inches): 4.00 Weight (Pounds): 156 General Appearance: WD/WN, other - On the vent EENT: PERRL/EOMI Neck: non-tender Cardiovascular: normal peripheral pulses Respiratory/Chest: chest wall non-tender, rhonchi - bilaterally Abdomen: normal bowel sounds, non tender Neurologic: other - Quadriplegia Ede Thakur MD Mar 14, 2019 14:55
[2019-03-14 16:00] VITALS: BP 125/78
--- NOTE | 2019-03-14 16:29 | Pulmonology Progress Note ---
Assessment/Plan Assessment/Plan respiratory failure chronic encephalopathy trach CRF GT constipation increase in residual hypertension diabetes s/p GT-->JT conversion PLAN care noted trach change vent as is/ on full support feeds gi follow up HD and monitor lytes and monitor fluid status skin care and off load chronic care- monitor bowel movements monitor sugars impression, plan, and exam edited and reviewed in detail care discussed with RN Subjective ROS Limited/Unobtainable: Yes Allergies: Coded Allergies: OLANZAPINE (Verified Allergy, Severe, RESP FAILURE, 11/25/13) VANCOMYCIN (Verified Allergy, Severe, 11/25/13) PIPERACILLIN (Verified Allergy, Intermediate, HIVES, 11/25/13) TAZOBACTAM (Verified Allergy, Intermediate, HIVES, 11/25/13) Subjective care noted and reviewed d/w sister in detail EGD noted on vent Objective Last 24 Hour Vital Signs Date Time Temp Pulse Resp B/P (MAP) Pulse Ox O2 Delivery O2 Flow Rate FiO2 03/14/19 15:49 90 15 99 Mechanical Ventilator 35 86 22 35 03/14/19 15:36 83 20 98 03/14/19 15:35 91 20 97 03/14/19 12:53 87 15 99 Mechanical Ventilator 35 86 22 35 03/14/19 12:00 81 03/14/19 12:00 Mechanical Ventilator 03/14/19 12:00 97.2 84 16 145/78 (100) 97 03/14/19 12:00 35 03/14/19 11:01 84 14 99 Mechanical Ventilator 35 86 22 35 03/14/19 09:25 82 15 Mechanical Ventilator 35 03/14/19 09:00 68 101/60 03/14/19 08:00 35 03/14/19 08:00 Mechanical Ventilator 03/14/19 08:00 73 03/14/19 08:00 97.9 77 16 105/60 (75) 97 03/14/19 07:14 74 14 Mechanical Ventilator 35 35 03/14/19 05:00 77 18 35 03/14/19 04:00 97.5 74 14 104/64 (77) 97 03/14/19 04:00 Mechanical Ventilator 03/14/19 04:00 78 03/14/19 04:00 35 03/14/19 03:38 89 16 98 Mechanical Ventilator 35 90 12 35 03/14/19 01:18 78 18 35 03/14/19 00:00 78 03/14/19 00:00 97.6 79 14 112/67 (82) 98 03/14/19 00:00 Mechanical Ventilator 03/13/19 23:17 78 18 99 Mechanical Ventilator 35 82 12 35 03/13/19 21:15 84 18 35 03/13/19 20:00 35 03/13/19 20:00 86 03/13/19 20:00 Mechanical Ventilator 03/13/19 20:00 98.1 84 12 126/68 (87) 99 03/13/19 19:38 87 18 99 Mechanical Ventilator 35 85 12 35 03/13/19 16:45 84 16 100 Mechanical Ventilator 35 84 14 35 Intake and Output 03/13/19 03/14/19 19:00 07:00 Intake Total 270 ml 30 ml Balance 270 ml 30 ml Intake Free Water 70 ml 30 ml Tube Feeding 200 ml 0 ml Objective WDWN NAD trach reduced breath sounds bilaterally without rhonchi or wheeze [id number] without MRG NABS nontender no HSM no CCE nonfocal poorly responsive at present skin exam noted gt feeds Current Medications Medications (Trade) Dose Ordered Sig/Alex Route PRN Reason Start Time Stop Time Status Last Admin Dose Admin Acetaminophen (Tylenol) 1,000 mg Q6H PRN ORAL Mild Pain/Temp > 100.5 03/11/19 16:30 04/10/19 16:29 Acetaminophen/ Hydrocodone Bitart ([place] 5/325) 1 tab Q4H PRN ORAL Moderate Pain (Pain Scale 4-6) 03/13/19 23:00 03/20/19 22:59 03/14/19 01:45 Albuterol Sulfate (Proventil) 2.5 mg Q4HRT HHN 03/11/19 23:00 03/16/19 18:59 03/14/19 15:50 Albuterol Sulfate (Proventil) 2.5 mg Q6HRT PRN HHN Shortness of Breath 03/11/19 18:00 03/16/19 17:59 Barium Sulfate (Barium EZ Gas II) 1 ea NOW PRN Radiology Procedure 03/13/19 20:45 03/16/19 20:34 Carvedilol (Coreg) 12.5 mg EVERY 12 HOURS GT 03/11/19 21:00 04/10/19 20:59 03/12/19 21:06 Chlorhexidine Gluconate (Rubina-Hex 2%) 1 applic DAILY@2000 TOPIC 03/12/19 20:00 04/11/19 19:59 03/13/19 21:19 Dextrose (Dextrose 50%) 25 ml Q30M PRN IV Hypoglycemia 03/11/19 17:15 04/10/19 17:14 Dextrose (Dextrose 50%) 50 ml Q30M PRN IV Hypoglycemia 03/11/19 17:15 04/10/19 17:14 Epoetin Amadou (Epoetin Amadou(ESRD on dialysis)) 10,000 unit ONCE A WEEK SUBQ 03/19/19 21:00 04/18/19 20:59 Heparin Sodium (Porcine) (Heparin Sod 1000 units/ml 10ml) 2,000 unit ONCE PRN IV dialysis 03/14/19 09:00 03/14/19 23:59 Insulin Aspart (NovoLOG) EVERY 6 HOURS SUBQ 03/11/19 18:00 04/10/19 17:59 03/14/19 00:16 Ipratropium [place] (Atrovent) 500 mcg Q4HRT HHN 03/11/19 23:00 03/16/19 18:59 03/14/19 15:50 Ipratropium [place] (Atrovent) 500 mcg Q6H PRN HHN Shortness of Breath 03/11/19 16:00 03/16/19 15:59 Levothyroxine Sodium (Synthroid) 200 mcg QHS GT 03/11/19 21:00 04/10/19 20:59 03/13/19 21:41 Lorazepam (Ativan) 0.5 mg Q6H PRN GT For Anxiety 03/11/19 16:00 03/18/19 15:59 03/14/19 01:43 Multivitamins (Multivitamins) 1 tab DAILY GT 03/12/19 09:00 04/11/19 08:59 03/14/19 11:27 Pantoprazole (Protonix) 40 mg DAILY IVP 03/13/19 21:00 04/12/19 20:59 03/14/19 11:27 Patient Own Medication (Patient's Own Med) 1 ea DAILYPRN PRN RECTAL constipation 03/11/19 21:15 04/10/19 21:14 03/13/19 15:22 Patient Own Medication (Patient's Own Med) 1 ea Q4HR OPHTHALM 03/11/19 21:00 04/10/19 20:59 03/14/19 11:47 Patient Own Medication (Patient's Own Med) 2 ea Q4HR OPHTHALM 03/13/19 21:00 04/10/19 20:59 03/14/19 11:50 Saccharomyces Boulardii (Florastor) 250 mg TWICE A DAY GT 03/11/19 18:00 04/10/19 17:59 03/14/19 11:27 Sorbitol (Sorbitol) 30 ml QHS ORAL 03/12/19 21:00 04/11/19 20:59 03/13/19 21:40 Vitamin B Complex/ Vit C/Folic Acid (Nephrovite) 1 tab DAILY GT 03/12/19 09:00 04/11/19 08:59 03/14/19 11:27 Maykel Evans MD Mar 14, 2019 16:29
--- NOTE | 2019-03-14 16:30 | NUR ---
NURSE NOTES: EGD done, per dr Andrade, feeding started.Pt turned and repositioned.HOB elevated to prevent aspiration.Mouth care done.Call light within easy reach
--- NOTE | 2019-03-14 17:00 | NUR ---
NURSE NOTES: Blood sugar 154, insulin held per sister Khadijah
--- NOTE | 2019-03-14 18:08 | NUR ---
NURSE NOTES: Patient turned and repositioned for skin management.HOB elevated to prevent aspiration.
--- NOTE | 2019-03-14 18:14 | NUR ---
NURSE NOTES: luis at bedside and update given around the clock. All her concerns twyla and MD called each time per her request.Central supplies reached for ARCELIA matress but as stated it has to be approved by treatment nurse.Patient does not have any wound at this time.
--- NOTE | 2019-03-14 19:10 | NUR ---
NURSE NOTES: Received patient from PHIL Rene. Will continue plan of care.
--- NOTE | 2019-03-14 19:22 | NUR ---
RESPIRATORY NOTE: Received pt on AC 12, 450VT, 35%, PEEP +5. Pt is trach-dependent w/ a cuffed, Portex Bivona 8 tube. Pt currently asleep/flat effect/occasionally responds to stimuli. Family & environmental educator present at bedside. B/S maureen. rhonchi, RT to only sxn prn per family/caregiver request, caregiver sxn using red chris, RT to assist using sterile procedure. Vent plugged into red outlet, ambubag at bedside. Pt in no apparent distress at this time. Will continue plan of care.
--- NOTE | 2019-03-14 19:44 | Diagnostic Imaging Report ---
EXAM: XR Abdomen, 2 Views CLINICAL HISTORY: CONSTIPATION TECHNIQUE: Frontal view of the abdomen pelvis with upright view of the abdomen. COMPARISON: CT 03 11 2019 FINDINGS: Intraperitoneal space: No pneumatosis or pneumoperitoneum. Gastrointestinal tract: Gas filled loops of presumed nondilated colon. Bones joints: No acute findings. Soft tissues: Surgical clips project over the right abdomen. Tubes, lines and devices: Percutaneous gastrostomy tube. IMPRESSION: Gas filled loops of presumed nondilated colon. No pneumatosis or pneumoperitoneum.
--- NOTE | 2019-03-14 19:47 | NUR ---
HAND-OFF: Report given to Annamarie Mendoza.
[2019-03-14 20:00] VITALS: BP 106/65
--- NOTE | 2019-03-14 20:37 | NUR ---
NURSE NOTES: Spoke to Khadijah (sister/conservator) regarding shift's medications. Khadijah request to hold coreg if SBP <145. Also she agreed to follow the insulin sliding schedule on the eMar. patient blood sugar currently at 201. Khadijah was also informed that [facility] [place] P200 airbed for patient due to the fact that there is no wound stage 3 and above. Khadijah is aware and will either bring her own or pay out of pocket.
[2019-03-14] MEDS: Dyna-Hex 2% Top Sol 2oz TOPIC SCH (21:49)
[2019-03-14] MEDS: Sorbitol Solution UD 30ml ORAL SCH (21:49)
--- NOTE | 2019-03-14 23:08 | NUR ---
RESPIRATORY NOTE: Trach care done for this pt. Assisted caregiver in cleaning stoma site, changing trach ties, trach dressings. Assisted caregiver w/ sterile tracheal sxn. Pt tolerated well. Will continue plan of care.
[2019-03-15] VITALS: BP 116/76
[2019-03-15] MEDS: [UNRECOGNIZED DRUG - OTHER] OPHTHALM SCH ×2 (00:34→05:00)
[2019-03-15] MEDS: SYSTANE ULTRA OPHTHALM SCH ×6 (00:35→22:30)
[2019-03-15] MEDS: Albuterol ud Inhalation HHN SCH ×6 (03:19→23:12)
[2019-03-15] MEDS: Ipratropium 0.02% Inh Soln 2.5ml UD HHN SCH ×6 (03:19→23:12)
[2019-03-15 04:00] VITALS: BP 123/69
[2019-03-15] MEDS: NovoLOG Insulin Flexpen SUBQ SCH ×3 (05:42→17:52)
--- NOTE | 2019-03-15 07:10 | NUR ---
HAND-OFF: Report given to PHIL Coburn.
[2019-03-15 08:00] VITALS: BP 152/78
--- NOTE | 2019-03-15 08:08 | NUR ---
NURSE NOTES: Received report from Kelly Brice RN. Pt is stable, obtunded, in bed, no signs of acute distress noted at this time. J tube running at prescribed rate, 40ml/hr. Noted trach to vent, portex 8 XLT, AC 12, TV 450, FiO2 35%, and PEEP 5. Pt is anuric, will follow plan of care.
[2019-03-15] MEDS: Carvedilol 12.5mg tab GT SCH ×2 (08:51→21:00)
[2019-03-15] MEDS: Nephrovite tab (Rena-Vite) GT SCH (08:51)
[2019-03-15] MEDS: Pantoprazole Inj IVP SCH (08:52)
--- NOTE | 2019-03-15 09:20 | General Progress Note ---
Assessment/Plan Problem List: (1) Tracheostomy malfunction ICD Codes: J95.03 - Malfunction of tracheostomy stoma SNOMED: 74523772 (2) Acute renal failure ICD Codes: N17.9 - Acute kidney failure, unspecified SNOMED: 05475178 (3) Pericardial effusion ICD Codes: I31.3 - Pericardial effusion (noninflammatory) SNOMED: 770116878 (4) Sepsis ICD Codes: A41.9 - Sepsis, unspecified organism SNOMED: 55161425 (5) Pneumonia ICD Codes: J18.9 - Pneumonia, unspecified organism SNOMED: 216858850 (6) Tracheostomy malfunction ICD Codes: J95.03 - Malfunction of tracheostomy stoma SNOMED: 80387402 (7) Hypotension ICD Codes: I95.9 - Hypotension, unspecified SNOMED: 53539644 (8) Fecal impaction ICD Codes: K56.41 - Fecal impaction SNOMED: 48085896 Status: stable Assessment/Plan: j tube feeds monitor residuals g tube to gravity bowel regime monitor renal fxn/labs skin care Subjective ROS Limited/Unobtainable: Yes Constitutional: Reports: malaise, weakness HEENT: Reports: no symptoms Cardiovascular: Reports: no symptoms Respiratory: Reports: shortness of breath, sputum Gastrointestinal/Abdominal: Reports: difficulty swallowing Genitourinary: Reports: no symptoms Neurologic/Psychiatric: Reports: pre-existing deficit Endocrine: Reports: no symptoms Hematologic/Lymphatic: Reports: anemia Allergies: Coded Allergies: OLANZAPINE (Verified Allergy, Severe, RESP FAILURE, 11/25/13) VANCOMYCIN (Verified Allergy, Severe, 11/25/13) PIPERACILLIN (Verified Allergy, Intermediate, HIVES, 11/25/13) TAZOBACTAM (Verified Allergy, Intermediate, HIVES, 11/25/13) All Systems: reviewed and negative except above Subjective no events, 2 bowel movement yesterday. on the vent. poorly responsive at baseline. no distress. s/p J tube conversion Objective Last 24 Hour Vital Signs Date Time Temp Pulse Resp B/P (MAP) Pulse Ox O2 Delivery O2 Flow Rate FiO2 03/15/19 08:51 99 152/78 03/15/19 07:01 87 20 98 Mechanical Ventilator 35 86 18 35 03/15/19 05:15 86 19 35 03/15/19 04:00 35 9/21/19 04:00 Mechanical Ventilator 03/15/19 04:00 98.4 91 18 123/69 (87) 97 03/15/19 03:34 91 03/15/19 03:34 88 14 98 Mechanical Ventilator 35 03/15/19 03:19 89 15 97 Mechanical Ventilator 35 88 15 35 03/15/19 01:08 90 17 35 03/15/19 00:00 35 03/15/19 00:00 Mechanical Ventilator 03/15/19 00:00 97.5 96 21 116/76 (89) 95 03/14/19 23:45 93 03/14/19 23:00 92 12 98 Mechanical Ventilator 35 03/14/19 22:45 88 15 97 Mechanical Ventilator 35 88 15 35 03/14/19 21:27 81 14 35 03/14/19 20:00 97.7 90 12 106/65 (79) 98 03/14/19 20:00 Mechanical Ventilator 03/14/19 20:00 35 03/14/19 19:35 91 12 99 Mechanical Ventilator 35 03/14/19 19:30 90 03/14/19 19:18 90 13 98 Mechanical Ventilator 35 90 12 35 03/14/19 17:04 87 13 Mechanical Ventilator 35 03/14/19 16:00 91 03/14/19 16:00 97.9 85 16 125/78 (94) 98 03/14/19 16:00 Mechanical Ventilator 03/14/19 16:00 35 03/14/19 15:49 90 15 99 Mechanical Ventilator 35 86 22 35 03/14/19 15:36 83 20 98 03/14/19 15:35 91 20 97 03/14/19 12:53 87 15 99 Mechanical Ventilator 35 86 22 35 03/14/19 12:00 81 03/14/19 12:00 Mechanical Ventilator 03/14/19 12:00 97.2 84 16 145/78 (100) 97 03/14/19 12:00 35 03/14/19 11:01 84 14 99 Mechanical Ventilator 35 86 22 35 03/14/19 09:25 82 15 Mechanical Ventilator 35 Intake and Output 03/14/19 03/15/19 18:59 06:59 Intake Total 180 ml 540 ml Output Total 300 ml Balance -120 ml 540 ml Intake Free Water 60 ml 60 ml Tube Feeding 120 ml 480 ml Output Hemodialysis UF 300 ml # Bowel Movements 4 Height (Feet): 5 Height (Inches): 4.00 Weight (Pounds): 156 General Appearance: WD/WN, alert Neck: supple Cardiovascular: regular rhythm Respiratory/Chest: lungs clear, normal breath sounds Abdomen: normal bowel sounds, non tender, soft, no organomegaly, no mass Edema: no edema noted Arm (L), no edema noted Arm (R), no edema noted Leg (L), no edema noted Leg (R), no edema noted Pedal (L), no edema noted Pedal (R), no edema noted Generalized Neurologic: unresponsive, aphasia Pito Jones MD Mar 15, 2019 09:20
--- NOTE | 2019-03-15 10:45 | NUR ---
NURSE NOTES: Dr Evans made aware that pt's Restore is unavailable4 and Artificial Tears Ointment is OK to order. Will take note and carry out.
[2019-03-15 12:00] VITALS: BP 141/82
[2019-03-15] MEDS: Lacri-Lube Opth Oint 3.5gm RIGHT EYE SCH ×3 (12:38→22:30)
[2019-03-15] MEDS ORDERED: HYDROcodone/Acetamin 5/325 tab GT PRN (12:45)
[2019-03-15] MEDS ORDERED: Omnipaque-300 100ml vial INJ PRN (13:30)
--- NOTE | 2019-03-15 13:43 | NUR ---
NURSE NOTES: Ordered P200 mattress from central supply. Will continue to monitor.
--- NOTE | 2019-03-15 15:52 | Pulmonology Progress Note ---
Assessment/Plan Assessment/Plan respiratory failure chronic encephalopathy trach CRF GT constipation increase in residual hypertension diabetes s/p GT-->JT conversion PLAN care noted- appears at baseline trach change in am vent as is/ on full support feeds as able gi follow up gt to suction HD and monitor lytes and monitor fluid status skin care and off load monitor hemodynamics chronic care- monitor bowel movements monitor sugars impression, plan, and exam edited and reviewed in detail care discussed with RN Subjective ROS Limited/Unobtainable: Yes Allergies: Coded Allergies: OLANZAPINE (Verified Allergy, Severe, RESP FAILURE, 11/25/13) VANCOMYCIN (Verified Allergy, Severe, 11/25/13) PIPERACILLIN (Verified Allergy, Intermediate, HIVES, 11/25/13) TAZOBACTAM (Verified Allergy, Intermediate, HIVES, 11/25/13) Subjective care noted and reviewed d/w sister in detail mucous plugs concern for aspiration on vent Objective Last 24 Hour Vital Signs Date Time Temp Pulse Resp B/P (MAP) Pulse Ox O2 Delivery O2 Flow Rate FiO2 03/15/19 15:16 82 17 98 Mechanical Ventilator 35 81 17 35 03/15/19 13:30 81 14 35 03/15/19 12:00 35 03/15/19 12:00 98.2 90 20 141/82 (101) 97 03/15/19 12:00 Trach Collar 03/15/19 11:45 85 03/15/19 11:34 83 12 98 Mechanical Ventilator 35 84 12 35 03/15/19 09:37 87 19 35 03/15/19 08:51 99 152/78 03/15/19 08:00 35 03/15/19 08:00 98.1 101 20 152/78 (102) 99 03/15/19 08:00 Trach Collar 03/15/19 07:43 97 03/15/19 07:01 87 20 98 Mechanical Ventilator 35 86 18 35 03/15/19 05:15 86 19 35 03/15/19 04:00 35 03/15/19 04:00 Mechanical Ventilator 03/15/19 04:00 98.4 91 18 123/69 (87) 97 03/15/19 03:34 91 03/15/19 03:34 88 14 98 Mechanical Ventilator 35 03/15/19 03:19 89 15 97 Mechanical Ventilator 35 88 15 35 03/15/19 01:08 90 17 35 03/15/19 00:00 35 03/15/19 00:00 Mechanical Ventilator 03/15/19 00:00 97.5 96 21 116/76 (89) 95 03/14/19 23:45 93 03/14/19 23:00 92 12 98 Mechanical Ventilator 35 03/14/19 22:45 88 15 97 Mechanical Ventilator 35 88 15 35 03/14/19 21:27 81 14 35 03/14/19 20:00 97.7 90 12 106/65 (79) 98 03/14/19 20:00 Mechanical Ventilator 03/14/19 20:00 35 03/14/19 19:35 91 12 99 Mechanical Ventilator 35 03/14/19 19:30 90 03/14/19 19:18 90 13 98 Mechanical Ventilator 35 90 12 35 03/14/19 17:04 87 13 Mechanical Ventilator 35 03/14/19 16:00 91 03/14/19 16:00 97.9 85 16 125/78 (94) 98 03/14/19 16:00 Mechanical Ventilator 03/14/19 16:00 35 Intake and Output 03/14/19 03/15/19 19:00 07:00 Intake Total 220 ml 540 ml Output Total 300 ml Balance -80 ml 540 ml Intake Free Water 60 ml 60 ml Tube Feeding 160 ml 480 ml Output Hemodialysis UF 300 ml # Bowel Movements 4 Objective WDWN NAD trach reduced breath sounds bilaterally without rhonchi or wheeze [id number] without MRG NABS nontender no HSM no CCE nonfocal poorly responsive at present skin exam noted gt feeds Current Medications Medications (Trade) Dose Ordered Sig/Alex Route PRN Reason Start Time Stop Time Status Last Admin Dose Admin Acetaminophen (Tylenol) 1,000 mg Q6H PRN GT Mild Pain/Temp > 100.5 03/15/19 12:45 04/10/19 16:29 Acetaminophen/ Hydrocodone Bitart ([place] 5/325) 1 tab Q4H PRN GT Moderate Pain (Pain Scale 4-6) 03/15/19 12:45 03/20/19 22:59 Albuterol Sulfate (Proventil) 2.5 mg Q4HRT HHN 03/11/19 23:00 03/16/19 18:59 03/15/19 15:25 Albuterol Sulfate (Proventil) 2.5 mg Q6HRT PRN HHN Shortness of Breath 03/11/19 18:00 03/16/19 17:59 Artificial Tears (Lacri-Lube) 1 applic Q4HR RIGHT EYE 03/15/19 13:00 04/14/19 12:59 03/15/19 12:38 Barium Sulfate (Barium EZ Gas II) 1 ea NOW PRN MC Radiology Procedure 03/13/19 20:45 03/16/19 20:34 Barium Sulfate (Readi-Cat 2) 450 ml NOW PRN ORAL Radiology Procedure 03/15/19 13:30 03/17/19 13:21 Carvedilol (Coreg) 12.5 mg EVERY 12 HOURS GT 03/11/19 21:00 04/10/19 20:59 03/15/19 08:51 Chlorhexidine Gluconate (Rubina-Hex 2%) 1 applic DAILY@1999 TOPIC 03/12/19 20:00 04/11/19 19:59 03/14/19 21:49 Dextrose (Dextrose 50%) 25 ml Q30M PRN IV Hypoglycemia 03/11/19 17:15 04/10/19 17:14 Dextrose (Dextrose 50%) 50 ml Q30M PRN IV Hypoglycemia 03/11/19 17:15 04/10/19 17:14 Epoetin Amadou (Epoetin Amadou(ESRD on dialysis)) 10,000 unit ONCE A WEEK SUBQ 03/19/19 21:00 04/18/19 20:59 Insulin Aspart (NovoLOG) EVERY 6 HOURS SUBQ 03/11/19 18:00 04/10/19 17:59 03/15/19 12:39 Iohexol (OMNIPAQUE-300 100ml) 100 ml NOW PRN INJ Radiology Procedure 03/15/19 13:30 03/17/19 13:21 Ipratropium [place] (Atrovent) 500 mcg Q4HRT HHN 03/11/19 23:00 03/16/19 18:59 03/15/19 15:25 Ipratropium [place] (Atrovent) 500 mcg Q6H PRN HHN Shortness of Breath 03/11/19 16:00 03/16/19 15:59 Levothyroxine Sodium (Synthroid) 200 mcg QHS GT 03/11/19 21:00 04/10/19 20:59 03/14/19 21:56 Lorazepam (Ativan) 0.5 mg Q6H PRN GT For Anxiety 03/11/19 16:00 03/18/19 15:59 03/14/19 01:43 Multivitamins (Multivitamins) 1 tab DAILY GT 03/12/19 09:00 04/11/19 08:59 03/15/19 08:51 Pantoprazole (Protonix) 40 mg DAILY IVP 03/13/19 21:00 04/12/19 20:59 03/15/19 08:52 Patient Own Medication (Patient's Own Med) 1 ea DAILYPRN PRN RECTAL constipation 03/11/19 21:15 04/10/19 21:14 03/13/19 15:22 Patient Own Medication (Patient's Own Med) 2 ea Q4HR OPHTHALM 03/13/19 21:00 04/10/19 20:59 03/15/19 12:37 Saccharomyces Boulardii (Florastor) 250 mg TWICE A DAY GT 03/11/19 18:00 04/10/19 17:59 03/15/19 08:52 Sorbitol (Sorbitol) 30 ml QHS ORAL 03/12/19 21:00 04/11/19 20:59 03/14/19 21:49 Vitamin B Complex/ Vit C/Folic Acid (Nephrovite) 1 tab DAILY GT 03/12/19 09:00 04/11/19 08:59 03/15/19 08:51 Maykel Evans MD Mar 15, 2019 15:52
[2019-03-15 16:00] VITALS: BP 94/58
--- NOTE | 2019-03-15 16:16 | NUR ---
RESPIRATORY NOTE: Received pt on AC 12, VT 450, FIO2 35%, PEEP of 5. Pt is on a trach cuffed Portex Bivona 8 tube. Pt responds when suctioned by their manager personal. Caregiver present at bedside. Pt breath sounds rhonchi bilaterally. Caregiver suctions with red 14 bruneian folley. Pt is in no distress. Vent plugged into red outlet and ambubag at bedside. Will continue to monitor.
--- NOTE | 2019-03-15 16:23 | Nephrology Progress Note ---
Assessment/Plan Assessment 1) VDRF 2) ESRD 3) DM 4) High residual TF, ? Gastroparesis Plan: HD tomorrow Will start Levemir 15 units SQ QHS Going for CT scan of abdomen with gastrografin Check Serum Cortisol NS 500 cc IV x1 Subjective Subjective She had HD today, Still on the vent, The G-J tube was put in place, she has still residuals, also GT to gravity is bringing up some tube feed, BG in the 220 , BP is low, KUB shows no major stool in the colon Objective Objective Last 24 Hour Vital Signs Date Time Temp Pulse Resp B/P (MAP) Pulse Ox O2 Delivery O2 Flow Rate FiO2 03/15/19 15:16 82 17 98 Mechanical Ventilator 35 81 17 35 03/15/19 13:30 81 14 35 03/15/19 12:00 35 03/15/19 12:00 98.2 90 20 141/82 (101) 97 03/15/19 12:00 Trach Collar 03/15/19 11:45 85 03/15/19 11:34 83 12 98 Mechanical Ventilator 35 84 12 35 03/15/19 09:37 87 19 35 03/15/19 08:51 99 152/78 03/15/19 08:00 35 03/15/19 08:00 98.1 101 20 152/78 (102) 99 03/15/19 08:00 Trach Collar 03/15/19 07:43 97 03/15/19 07:01 87 20 98 Mechanical Ventilator 35 86 18 35 03/15/19 05:15 86 19 35 03/15/19 04:00 35 03/15/19 04:00 Mechanical Ventilator 03/15/19 04:00 98.4 91 18 123/69 (87) 97 03/15/19 03:34 91 03/15/19 03:34 88 14 98 Mechanical Ventilator 35 03/15/19 03:19 89 15 97 Mechanical Ventilator 35 88 15 35 03/15/19 01:08 90 17 35 03/15/19 00:00 35 03/15/19 00:00 Mechanical Ventilator 03/15/19 00:00 97.5 96 21 116/76 (89) 95 03/14/19 23:45 93 03/14/19 23:00 92 12 98 Mechanical Ventilator 35 03/14/19 22:45 88 15 97 Mechanical Ventilator 35 88 15 35 03/14/19 21:27 81 14 35 03/14/19 20:00 97.7 90 12 106/65 (79) 98 03/14/19 20:00 Mechanical Ventilator 03/14/19 20:00 35 03/14/19 19:35 91 12 99 Mechanical Ventilator 35 03/14/19 19:30 90 03/14/19 19:18 90 13 98 Mechanical Ventilator 35 90 12 35 03/14/19 17:04 87 13 Mechanical Ventilator 35 Intake and Output 03/14/19 03/15/19 19:00 07:00 Intake Total 220 ml 540 ml Output Total 300 ml Balance -80 ml 540 ml Intake Free Water 60 ml 60 ml Tube Feeding 160 ml 480 ml Output Hemodialysis UF 300 ml # Bowel Movements 4 Height (Feet): 5 Height (Inches): 4.00 Weight (Pounds): 156 General Appearance: no apparent distress EENT: PERRL/EOMI Neck: non-tender Cardiovascular: normal rate, regular rhythm Respiratory/Chest: rhonchi - bilaterally, rhonchi - left, rhonchi - right Abdomen: normal bowel sounds Neurologic: other - Quadriplegic Ede Thakur MD Mar 15, 2019 16:23
--- NOTE | 2019-03-15 16:39 | NUR ---
NURSE NOTES: dr mendes made aware that patient is on sorbitol and had [address] mendes ordered to collect stool tomorrow if patient still having diarrhea.
--- NOTE | 2019-03-15 18:38 | General Progress Note ---
Assessment/Plan Status: stable Assessment/Plan: Assessment - Resolved stool impaction ( per CT and rectal exam), now with diarrhea - G TF intolerance - s/p G--> GJ conversion - Resp failure / trach - renal failure - contracted / vegetative state - high decub risk Recommendations - TF via J port - G port to gravity - d/c sorbitol - Elevate HOB - decub prevention - check C Diff if diarrhea persists off of sorbitol - check CT with J port contrast Subjective Allergies: Coded Allergies: OLANZAPINE (Verified Allergy, Severe, RESP FAILURE, 11/25/13) VANCOMYCIN (Verified Allergy, Severe, 11/25/13) PIPERACILLIN (Verified Allergy, Intermediate, HIVES, 11/25/13) TAZOBACTAM (Verified Allergy, Intermediate, HIVES, 11/25/13) Subjective above noted d/w workforce staffing advisor Tolerating TF some gastric residuals still noted advised RN to place G port to gravity, clamp for 1 hr after meds some diarrhea noted - sorbitol d/c'd CT ordered per discussion with sister Objective Last 24 Hour Vital Signs Date Time Temp Pulse Resp B/P (MAP) Pulse Ox O2 Delivery O2 Flow Rate FiO2 03/15/19 17:05 82 14 35 03/15/19 16:00 35 03/15/19 16:00 98.0 78 20 94/58 (70) 98 03/15/19 16:00 Trach Collar 03/15/19 15:30 80 03/15/19 15:16 82 17 98 Mechanical Ventilator 35 81 17 35 03/15/19 13:30 81 14 35 03/15/19 12:00 35 03/15/19 12:00 98.2 90 20 141/82 (101) 97 03/15/19 12:00 Trach Collar 03/15/19 11:45 85 03/15/19 11:34 83 12 98 Mechanical Ventilator 35 84 12 35 03/15/19 09:37 87 19 35 03/15/19 08:51 99 152/78 03/15/19 08:00 35 03/15/19 08:00 98.1 101 20 152/78 (102) 99 03/15/19 08:00 Mechanical Ventilator 03/15/19 07:43 97 03/15/19 07:01 87 20 98 Mechanical Ventilator 35 86 18 35 03/15/19 05:15 86 19 35 03/15/19 04:00 35 03/15/19 04:00 Mechanical Ventilator 03/15/19 04:00 98.4 91 18 123/69 (87) 97 03/15/19 03:34 91 03/15/19 03:34 88 14 98 Mechanical Ventilator 35 03/15/19 03:19 89 15 97 Mechanical Ventilator 35 88 15 35 03/15/19 01:08 90 17 35 03/15/19 00:00 35 03/15/19 00:00 Mechanical Ventilator 03/15/19 00:00 97.5 96 21 116/76 (89) 95 03/14/19 23:45 93 03/14/19 23:00 92 12 98 Mechanical Ventilator 35 03/14/19 22:45 88 15 97 Mechanical Ventilator 35 88 15 35 03/14/19 21:27 81 14 35 03/14/19 20:00 97.7 90 12 106/65 (79) 98 03/14/19 20:00 Mechanical Ventilator 03/14/19 20:00 35 03/14/19 19:35 91 12 99 Mechanical Ventilator 35 03/14/19 19:30 90 03/14/19 19:18 90 13 98 Mechanical Ventilator 35 90 12 35 Intake and Output 03/14/19 03/15/19 19:00 07:00 Intake Total 220 ml 540 ml Output Total 300 ml Balance -80 ml 540 ml Intake Free Water 60 ml 60 ml Tube Feeding 160 ml 480 ml Output Hemodialysis UF 300 ml # Bowel Movements 4 Laboratory Tests 03/15/19 17:10: Cortisol [Pending] Height (Feet): 5 Height (Inches): 4.00 Weight (Pounds): 156 Objective Debilitated nonverbal woman unresponsive, comatose, eyes closed NCAT (+) trach coarse BS RR abd soft , GJT in good position (++) contracted extremities Neuro Coma, contracted Emily Hu MD Mar 15, 2019 18:38
--- NOTE | 2019-03-15 19:15 | NUR ---
HAND-OFF: Report given to leonidas herman.
--- NOTE | 2019-03-15 19:16 | NUR ---
NURSE NOTES: Received bedside report from PHIL Coburn.Patient obtunded,SR on campus monitor,trach Portex 8 AC 12 TV 450 FiO2 35% PEEP 5 tolerated well,pt NPO d/t abd US with contrast,GT draining by gravity by order,pt anuric, IV asymptomatic,intact on R hand 22G SL,L Subclavian PermCath for HD,bed secured in a low safety position,call light within a reach,family at bedside,will continue to monitor.
[2019-03-15 20:00] VITALS: BP 99/53
--- NOTE | 2019-03-15 21:05 | NUR ---
NURSE NOTES: Pt went to CT abdomen,portable tobacco flavorer applied,SR on monitor during transportation.Using portable oxygen and ventilator during procedure.Patient tolerated well Sat O2 97-100%.RT at bedside.
--- NOTE | 2019-03-15 22:14 | Diagnostic Imaging Report ---
EXAM: CT Abdomen and Pelvis With Intravenous Contrast CLINICAL HISTORY: N TECHNIQUE: Axial computed tomography images of the abdomen and pelvis with intravenous contrast. CTDI is 16 mGy and DLP is 768 mGy-cm. One or more of the following dose reduction techniques were used: automated exposure control, adjustment of the mA and or kV according to patient size, use of iterative reconstruction technique. Coronal and sagittal reformatted images were created and reviewed. COMPARISON: 9 17 19 FINDINGS: Lung bases: Unchanged left base atelectasis correlate clinically to exclude pneumonia. Mediastinum: Unchanged displacement of the mediastinum and left thoracic cavity, this is of uncertain significance. ABDOMEN: Liver: Atypical hepatic contour and morphology, which could represent chronic liver disease. Unchanged benign right hepatic 1.2 cm fatty lesion. Gallbladder and bile ducts: Cholecystectomy. No ductal dilation. Pancreas: Unremarkable. No mass. No ductal dilation. Spleen: Unremarkable. No splenomegaly. Adrenals: Unremarkable. No mass. Kidneys and ureters: Bilateral renal atrophy with benign of right 2.5 cm cyst and smaller cysts as well as attenuation indeterminate left 2.5 cm cyst attenuation 48 HU. No hydronephrosis. Stomach and bowel: Additional potentially postoperative findings in the proximal jejunum of uncertain significance. Unremarkable remaining bowel structures. No obstruction. No mucosal thickening. PELVIS: Appendix: No findings to suggest acute appendicitis. Bladder: Unremarkable. No mass. Reproductive: Fibroid uterus. ABDOMEN and PELVIS: Intraperitoneal space: Unremarkable. No free air. No significant fluid collection. Bones joints: Severe osteopenia. 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 No acute fracture. No dislocation. Soft tissues: Unchanged fatty atrophy of all body wall and extremity muscle groups as visualized. Vasculature: Unremarkable. No abdominal aortic aneurysm. Lymph nodes: Unremarkable. No enlarged lymph nodes. Tubes, lines and devices: New converted percutaneous gastrojejunostomy tube, tip in the jejunum. Partially imaged central line with tip in the inferior cavoatrial junction; depending on the utilization of this line, consider retraction approximately 5 cm. Other findings: Scattered ASVD. Impression new. Additional chronic findings above. IMPRESSION: 1. New percutaneous gastrojejunostomy tube, tip in the jejunum. 2. Unchanged left base atelectasis correlate clinically to exclude pneumonia. 3. Partially imaged central line with tip in the inferior cavoatrial junction; depending on the utilization of this line, consider retraction approximately 5 cm. 4. Additional potentially postoperative findings in the proximal jejunum of uncertain significance. 5. Unchanged renal findings above, recommend nonemergent MRI kidneys without and with intravenous contrast to further characterize left renal exophytic mass cyst which is indeterminate on this study. 6. Atypical hepatic contour and morphology, which could represent chronic liver disease.
[2019-03-15] MEDS: Dyna-Hex 2% Top Sol 2oz TOPIC SCH (22:25)
[2019-03-15] MEDS: Levemir Flexpen SUBQ SCH (22:28)
[2019-03-16] VITALS: BP 126/64
--- NOTE | 2019-03-16 | NUR ---
NURSE NOTES: Started feeding @40ml/hr as an order,no residual.Flushed 30ml of water.HOB elevated to prevent aspiration.Pt turned and repositioned.Will continue to monitor.
[2019-03-16] MEDS: NovoLOG Insulin Flexpen SUBQ SCH ×4 (00:43→18:08)
[2019-03-16] MEDS: Lacri-Lube Opth Oint 3.5gm RIGHT EYE SCH ×6 (00:44→21:00)
[2019-03-16] MEDS: SYSTANE ULTRA OPHTHALM SCH ×6 (00:44→21:00)
[2019-03-16] MEDS: Ipratropium 0.02% Inh Soln 2.5ml UD HHN SCH ×6 (03:34→23:15)
[2019-03-16] MEDS: Albuterol ud Inhalation HHN SCH ×6 (03:34→23:15)
[2019-03-16 04:00] VITALS: BP 123/72
[2019-03-16 05:28] LABS: EOSINOPHILS % (AUTO) 4.1 % (0.0-3.0); HEMATOCRIT 38.7 % (37.0-47.0); HEMOGLOBIN 12.9 G/DL (12.0-16.0); LYMPHOCYTES % (AUTO) 15.5 % (20.0-45.0); MEAN CORPUSCULAR VOLUME 96 FL (80-99); MONOCYTES % (AUTO) 4.5 % (1.0-10.0); NEUTROPHILS % (AUTO) 74.9 % (45.0-75.0); PLATELET COUNT 273 K/UL (150-450); RED BLOOD COUNT 4.03 M/UL (4.20-5.40); RED CELL DISTRIBUTION WIDTH 16.7 % (11.6-14.8); WHITE BLOOD COUNT 8.4 K/UL (4.8-10.8)
[2019-03-16 05:42] LABS: PHOSPHORUS 4.4 MG/DL (2.5-4.9)
[2019-03-16] MEDS ORDERED: Heparin Sod 1000 units/ml 10ml IV PRN (06:00)
--- NOTE | 2019-03-16 06:00 | NUR ---
NURSE NOTES: Pt clean and dry,repositioned with second nurse.Patient stable.
--- NOTE | 2019-03-16 06:00 | NUR ---
NURSE NOTES: Pt turned and repositioned.Tolerated feeding well,no residual at this time.Will continue to monitor
[2019-03-16 06:49] LABS: ALANINE AMINOTRANSFERASE 45 U/L (12-78); ALBUMIN 3.2 G/DL (3.4-5.0); ALBUMIN/GLOBULIN RATIO 0.6 (1.0-2.7); ALKALINE PHOSPHATASE 190 U/L (46-116); ANION GAP 18 mmol/L (5-15); ASPARTATE AMINO TRANSFERASE 29 U/L (15-37); BILIRUBIN,TOTAL 0.6 MG/DL (0.2-1.0); BLOOD UREA NITROGEN 69 mg/dL (7-18); CARBON DIOXIDE 21 MMOL/L (21-32); CHLORIDE 101 MMOL/L (98-107); POTASSIUM 3.4 MMOL/L (3.5-5.1); SODIUM 140 MMOL/L (136-145)
--- NOTE | 2019-03-16 07:12 | NUR ---
HAND-OFF: Report given to PHIL Mayo.Patient stable,caregiver at bedside.
--- NOTE | 2019-03-16 07:15 | NUR ---
NURSE NOTES: Report received from Anne Marie Crum RN.Pt in bed with eyes cloased,asllep,noted no resp distress,with trach tube to mech vent,,settings AC 12,TV50,Fio2 35% ,Peep 5,Pt on Nepro at40 ml/hr thru Jejunosty tube,no residual noted,and GT to gravity,also used for medication and flushes.,anuric,pt on HD,IV site to RH intact ,skin warm and dry,SR up x2 ,HOB elevated,bed lock in lowest position, career guidance technician at bedside.,will continue with plans of care.
--- NOTE | 2019-03-16 07:31 | NUR ---
RESPIRATORY NOTE: received pt on current vent orders with no signs of resp distress. pt is vent dependent and has caregiver at bedside. pt caregiver stated not for pt to be sxn'd at this time. sxn will be prn and sterile technique with pt's own equipment at bedside. pt has portable home vent at bedside still waiting for biomed/engineering to be checked. aware that tracheostomy tube will possibly be changed today by MD only and with myself to assist. still waiting on order and word if it were to happen. breathing tx's will follow throughout the day and cont to monitor. Addendum: 03/16/19 at 0733 by ALEXANDRO MAHARAJ RT alarms are set and audible with vent plugged into the red outlet. ambu bag at bedside if anything were to occur. will cont to monitor.
[2019-03-16 08:00] VITALS: BP 134/64
--- NOTE | 2019-03-16 08:51 | Pulmonology Progress Note ---
Assessment/Plan Assessment/Plan respiratory failure chronic encephalopathy trach CRF GT constipation increase in residual hypertension diabetes s/p GT-->JT conversion intolerance of meds PLAN care noted- appears at baseline trach change completed vent as is/ on full support feeds as able gi follow up - dc all un needed meds gt to suction HD and monitor lytes and monitor fluid status skin care and off load monitor hemodynamics chronic care- monitor bowel movements monitor sugars not ready for dc yet impression, plan, and exam edited and reviewed in detail care discussed with RN Subjective ROS Limited/Unobtainable: Yes Allergies: Coded Allergies: OLANZAPINE (Verified Allergy, Severe, RESP FAILURE, 11/25/13) VANCOMYCIN (Verified Allergy, Severe, 11/25/13) PIPERACILLIN (Verified Allergy, Intermediate, HIVES, 11/25/13) TAZOBACTAM (Verified Allergy, Intermediate, HIVES, 11/25/13) Subjective care noted and reviewed d/w caregivers and GI mucous plugs concern for aspiration on vent performed trach change at bedside Objective Last 24 Hour Vital Signs Date Time Temp Pulse Resp B/P (MAP) Pulse Ox O2 Delivery O2 Flow Rate FiO2 03/16/19 08:00 98.2 84 18 134/64 (87) 97 03/16/19 08:00 35 03/16/19 08:00 Trach Collar 03/16/19 07:27 88 17 98 Mechanical Ventilator 35 89 17 35 03/16/19 05:30 85 18 35 03/16/19 04:00 Trach Collar 03/16/19 04:00 35 03/16/19 04:00 97.7 75 20 123/72 (89) 96 03/16/19 03:45 80 03/16/19 03:30 78 14 95 Mechanical Ventilator 35 78 14 35 03/16/19 01:30 74 16 35 03/16/19 00:00 35 03/16/19 00:00 Trach Collar 03/16/19 00:00 97.5 74 18 126/64 (84) 96 03/15/19 23:37 73 03/15/19 23:09 74 14 97 Mechanical Ventilator 35 74 14 35 03/15/19 21:00 87 99/53 03/15/19 20:56 78 16 35 03/15/19 20:00 97.7 77 18 99/53 (68) 96 03/15/19 20:00 35 03/15/19 20:00 Trach Collar 03/15/19 19:28 80 17 99 Mechanical Ventilator 35 80 17 35 03/15/19 19:26 82 03/15/19 17:05 82 14 35 03/15/19 16:00 35 03/15/19 16:00 98.0 78 20 94/58 (70) 98 03/15/19 16:00 Trach Collar 03/15/19 15:30 80 03/15/19 15:16 82 17 98 Mechanical Ventilator 35 81 17 35 03/15/19 13:30 81 14 35 03/15/19 12:00 35 03/15/19 12:00 98.2 90 20 141/82 (101) 97 03/15/19 12:00 Trach Collar 03/15/19 11:45 85 03/15/19 11:34 83 12 98 Mechanical Ventilator 35 84 12 35 03/15/19 09:37 87 19 35 03/15/19 08:51 99 152/78 Intake and Output 03/15/19 03/16/19 19:00 07:00 Intake Total 1199 ml 350 ml Balance 1199 ml 350 ml Intake Free Water 30 ml 30 ml IV Total 999 ml Tube Feeding 140 ml 320 ml Other 30 ml # Bowel Movements 2 Objective WDWN NAD trach reduced breath sounds bilaterally without rhonchi or wheeze [id number] without MRG NABS nontender no HSM no CCE nonfocal poorly responsive at present skin exam noted gt feeds Microbiology Date/Time Source Procedure Growth Status 03/15/19 12:15 Sputum Gram Stain - Final Resulted 03/15/19 12:15 Sputum Sputum Culture Pending Resulted Laboratory Tests 03/15/19 17:10: Cortisol 9.9 03/16/19 04:20: White Blood Count 8.4, Red Blood Count 4.03L, Hemoglobin 12.9, Hematocrit 38.7, Mean Corpuscular Volume 96, Mean Corpuscular Hemoglobin 32.0H, Mean Corpuscular Hemoglobin Concent 33.2, Red Cell Distribution Width 16.7H, Platelet Count 273, Mean Platelet Volume 7.2, Neutrophils (%) (Auto) 74.9, Lymphocytes (%) (Auto) 15.5L, Monocytes (%) (Auto) 4.5, Eosinophils (%) (Auto) 4.1H, Basophils (%) ( Auto) 1.0, Sodium Level 140, Potassium Level 3.4L, Chloride Level 101, Carbon Dioxide Level 21, Anion Gap 18H, Blood Urea Nitrogen 69H, Creatinine 2.0H, Estimat Glomerular Filtration Rate 25.1, Glucose Level 181H, Calcium Level 9.0, Phosphorus Level 4.4, Magnesium Level 2.3, Total Bilirubin 0.6, Aspartate Amino Transf (AST/SGOT) 29, Alanine Aminotransferase (ALT/SGPT) 45, Alkaline Phosphatase 190H, Total Protein 8.5H, Albumin 3.2L, Globulin 5.3, Albumin/ Globulin Ratio 0.6L Current Medications Medications (Trade) Dose Ordered Sig/Alex Route PRN Reason Start Time Stop Time Status Last Admin Dose Admin Acetaminophen (Tylenol) 1,000 mg Q6H PRN GT Mild Pain/Temp > 100.5 03/15/19 12:45 04/10/19 16:29 Acetaminophen/ Hydrocodone Bitart ([place] 5/325) 1 tab Q4H PRN GT Moderate Pain (Pain Scale 4-6) 03/15/19 12:45 03/20/19 22:59 Albuterol Sulfate (Proventil) 2.5 mg Q4HRT HHN 03/11/19 23:00 03/16/19 18:59 03/16/19 07:27 Albuterol Sulfate (Proventil) 2.5 mg Q6HRT PRN N Shortness of Breath 03/11/19 18:00 03/16/19 17:59 Artificial Tears (Lacri-Lube) 1 applic Q4HR RIGHT EYE 03/15/19 13:00 04/14/19 12:59 03/15/19 17:11 Barium Sulfate (Barium EZ Gas II) 1 ea NOW PRN MC Radiology Procedure 03/13/19 20:45 03/16/19 20:34 Barium Sulfate (Readi-Cat 2) 450 ml NOW PRN ORAL Radiology Procedure 03/15/19 13:30 03/17/19 13:21 Carvedilol (Coreg) 12.5 mg EVERY 12 HOURS GT 03/11/19 21:00 04/10/19 20:59 03/15/19 08:51 Chlorhexidine Gluconate (Rubina-Hex 2%) 1 applic DAILY@1999 TOPIC 03/12/19 20:00 04/11/19 19:59 03/15/19 22:25 Dextrose (Dextrose 50%) 25 ml Q30M PRN IV Hypoglycemia 03/11/19 17:15 04/10/19 17:14 Dextrose (Dextrose 50%) 50 ml Q30M PRN IV Hypoglycemia 03/11/19 17:15 04/10/19 17:14 Epoetin Amadou (Epoetin Amadou(ESRD on dialysis)) 10,000 unit ONCE A WEEK SUBQ 03/19/19 21:00 04/18/19 20:59 Heparin Sodium (Porcine) (Heparin Sod 1000 units/ml 10ml) 2,000 unit ONCE PRN IV HD 03/16/19 06:00 03/16/19 23:59 Insulin Aspart (NovoLOG) EVERY 6 HOURS SUBQ 03/11/19 18:00 04/10/19 17:59 03/16/19 05:52 Insulin Detemir (Levemir) 15 units BEDTIME SUBQ 03/15/19 21:00 04/14/19 20:59 03/15/19 22:28 Iohexol (OMNIPAQUE-300 100ml) 100 ml NOW PRN INJ Radiology Procedure 03/15/19 13:30 03/17/19 13:21 Ipratropium [place] (Atrovent) 500 mcg Q4HRT HHN 03/11/19 23:00 03/16/19 18:59 03/16/19 07:27 Ipratropium [place] (Atrovent) 500 mcg Q6H PRN HHN Shortness of Breath 03/11/19 16:00 03/16/19 15:59 Levothyroxine Sodium (Synthroid) 200 mcg QHS GT 03/11/19 21:00 04/10/19 20:59 03/14/19 21:56 Lorazepam (Ativan) 0.5 mg Q6H PRN GT For Anxiety 03/11/19 16:00 03/18/19 15:59 03/14/19 01:43 Multivitamins (Multivitamins) 1 tab DAILY GT 03/12/19 09:00 04/11/19 08:59 03/15/19 08:51 Patient Own Medication (Patient's Own Med) 1 ea DAILYPRN PRN RECTAL constipation 03/11/19 21:15 04/10/19 21:14 03/13/19 15:22 Patient Own Medication (Patient's Own Med) 2 ea Q4HR OPHTHALM 03/13/19 21:00 04/10/19 20:59 03/15/19 17:11 Vitamin B Complex/ Vit C/Folic Acid (Nephrovite) 1 tab DAILY GT 03/12/19 09:00 04/11/19 08:59 03/15/19 08:51 Maykel Evans MD Mar 16, 2019 08:51
[2019-03-16] MEDS: Nephrovite tab (Rena-Vite) GT SCH (09:21)
[2019-03-16] MEDS: Carvedilol 12.5mg tab GT SCH ×2 (09:21→20:59)
--- NOTE | 2019-03-16 09:25 | Diagnostic Imaging Report ---
EXAM: XR Chest, 1 View CLINICAL HISTORY: COUGH TECHNIQUE: Frontal view of the chest. COMPARISON: Compared to [facility], 9 19, chest x-ray report 06 09 17, image not available, and CT chest 06 02 17. FINDINGS: Lungs: Mild vascular and interstitial prominence. Left retrocardiac opacity. Pleural space: May be tiny pleural effusions. No pneumothorax. Heart: Cardiomegaly. Mediastinum: Unremarkable. Bones joints: Unremarkable. Tubes, lines and devices: Tracheostomy tube in good position. Left subclavian central venous catheter tip in the right atrium, stable. IMPRESSION: 1. Cardiomegaly. 2. Mild vascular and interstitial prominence. Left retrocardiac opacity. May be tiny pleural effusions.
--- NOTE | 2019-03-16 10:54 | General Progress Note ---
Assessment/Plan Problem List: (1) Tracheostomy malfunction ICD Codes: J95.03 - Malfunction of tracheostomy stoma SNOMED: 84905189 (2) Acute renal failure ICD Codes: N17.9 - Acute kidney failure, unspecified SNOMED: 85997612 (3) Pericardial effusion ICD Codes: I31.3 - Pericardial effusion (noninflammatory) SNOMED: 404244510 (4) Sepsis ICD Codes: A41.9 - Sepsis, unspecified organism SNOMED: 79156118 (5) Pneumonia ICD Codes: J18.9 - Pneumonia, unspecified organism SNOMED: 861748118 (6) Tracheostomy malfunction ICD Codes: J95.03 - Malfunction of tracheostomy stoma SNOMED: 75797271 (7) Hypotension ICD Codes: I95.9 - Hypotension, unspecified SNOMED: 93277922 (8) Fecal impaction ICD Codes: K56.41 - Fecal impaction SNOMED: 22849348 Status: stable Assessment/Plan: j tube feeds monitor residuals g tube to gravity clamp g prto after giving meds bowel regime monitor renal fxn/labs skin care vent support resp care monitor secretions Subjective Allergies: Coded Allergies: OLANZAPINE (Verified Allergy, Severe, RESP FAILURE, 11/25/13) VANCOMYCIN (Verified Allergy, Severe, 11/25/13) PIPERACILLIN (Verified Allergy, Intermediate, HIVES, 11/25/13) TAZOBACTAM (Verified Allergy, Intermediate, HIVES, 11/25/13) Subjective no events, tolerating j tube feeds. meds coming out of g port. mild congestion per [place] Objective Last 24 Hour Vital Signs Date Time Temp Pulse Resp B/P (MAP) Pulse Ox O2 Delivery O2 Flow Rate FiO2 03/16/19 09:25 87 14 35 03/16/19 09:21 84 134/64 03/16/19 08:00 98.2 84 18 134/64 (87) 97 03/16/19 08:00 35 03/16/19 08:00 Trach Collar 03/16/19 07:54 89 03/16/19 07:27 88 17 98 Mechanical Ventilator 35 89 17 35 03/16/19 05:30 85 18 35 03/16/19 04:00 Trach Collar 03/16/19 04:00 35 03/16/19 04:00 97.7 75 20 123/72 (89) 96 03/16/19 03:45 80 03/16/19 03:30 78 14 95 Mechanical Ventilator 35 78 14 35 03/16/19 01:30 74 16 35 03/16/19 00:00 35 03/16/19 00:00 Trach Collar 03/16/19 00:00 97.5 74 18 126/64 (84) 96 03/15/19 23:37 73 03/15/19 23:09 74 14 97 Mechanical Ventilator 35 74 14 35 03/15/19 21:00 87 99/53 03/15/19 20:56 78 16 35 03/15/19 20:00 97.7 77 18 99/53 (68) 96 03/15/19 20:00 35 03/15/19 20:00 Trach Collar 03/15/19 19:28 80 17 99 Mechanical Ventilator 35 80 17 35 03/15/19 19:26 82 03/15/19 17:05 82 14 35 03/15/19 16:00 35 03/15/19 16:00 98.0 78 20 94/58 (70) 98 03/15/19 16:00 Trach Collar 03/15/19 15:30 80 03/15/19 15:16 82 17 98 Mechanical Ventilator 35 81 17 35 03/15/19 13:30 81 14 35 03/15/19 12:00 35 03/15/19 12:00 98.2 90 20 141/82 (101) 97 03/15/19 12:00 Trach Collar 03/15/19 11:45 85 03/15/19 11:34 83 12 98 Mechanical Ventilator 35 84 12 35 Intake and Output 03/15/19 03/16/19 18:59 06:59 Intake Total 1239 ml 310 ml Balance 1239 ml 310 ml Intake Free Water 30 ml 30 ml IV Total 999 ml Tube Feeding 180 ml 280 ml Other 30 ml # Bowel Movements 2 Laboratory Tests 03/15/19 17:10: Cortisol 9.9 03/16/19 04:20: White Blood Count 8.4, Red Blood Count 4.03L, Hemoglobin 12.9, Hematocrit 38.7, Mean Corpuscular Volume 96, Mean Corpuscular Hemoglobin 32.0H, Mean Corpuscular Hemoglobin Concent 33.2, Red Cell Distribution Width 16.7H, Platelet Count 273, Mean Platelet Volume 7.2, Neutrophils (%) (Auto) 74.9, Lymphocytes (%) (Auto) 15.5L, Monocytes (%) (Auto) 4.5, Eosinophils (%) (Auto) 4.1H, Basophils (%) ( Auto) 1.0, Sodium Level 140, Potassium Level 3.4L, Chloride Level 101, Carbon Dioxide Level 21, Anion Gap 18H, Blood Urea Nitrogen 69H, Creatinine 2.0H, Estimat Glomerular Filtration Rate 25.1, Glucose Level 181H, Calcium Level 9.0, Phosphorus Level 4.4, Magnesium Level 2.3, Total Bilirubin 0.6, Aspartate Amino Transf (AST/SGOT) 29, Alanine Aminotransferase (ALT/SGPT) 45, Alkaline Phosphatase 190H, Total Protein 8.5H, Albumin 3.2L, Globulin 5.3, Albumin/ Globulin Ratio 0.6L Height (Feet): 5 Height (Inches): 4.00 Weight (Pounds): 156 General Appearance: WD/WN, alert Neck: supple Cardiovascular: regular rhythm Respiratory/Chest: chest wall non-tender, rhonchi - bilaterally Abdomen: normal bowel sounds, non tender, soft, no organomegaly Edema: no edema noted Arm (L), no edema noted Arm (R), no edema noted Leg (L), no edema noted Leg (R), no edema noted Pedal (L), no edema noted Pedal (R), no edema noted Generalized Neurologic: disoriented, unresponsive, aphasia Pito Jones MD Mar 16, 2019 10:54
--- NOTE | 2019-03-16 11:00 | NUR ---
NURSE NOTES: Pt turned and repositioned ,Tracheal oral secretions suctioned PRN.
[2019-03-16 12:00] VITALS: BP 111/56
--- NOTE | 2019-03-16 12:32 | NUR ---
NURSE NOTES: HD RN Marlyn at bedside,HD in progress,tolerating well no distress presented.
[2019-03-16] MEDS ORDERED: D5NS 1000ml IV ONE (13:43)
--- NOTE | 2019-03-16 14:30 | NUR ---
HAND-OFF: Report given to Jennifer VILLARREAL.pt still with ongoing HD,no resp distress noted,family member sister and caregiver at bedside..
--- NOTE | 2019-03-16 14:31 | NUR ---
NURSE NOTES: Received report from PHIL Sanchez. Observed patient in bed, nonverbal; on trach-vent with previous settings. No respiratory distress noted at this time. Jtube intact and patent with feeding infusing at prescribed rate. HOB elevated. GTube connected to drainage bag, draining well via gravity. HD catheter on left subclavian intact, dressing changed by HD nurse who is at bedside at this time. Right hand 22g intact and patent. Bed locked, alarmed, and in lowest position, side rails up x2, and call light within reach. Sister Khadijah and caregiver at bedside. Instructed to call for assistance, verbalized understanding. Will continue with plan of care.
--- NOTE | 2019-03-16 14:45 | NUR ---
NURSE NOTES: Dialysis completed, no output taken out per HD nurse. Patient tolerated procedure well. No distress noted at this time. Reported BP 110/63, HR 82, O2 saturation 98%, Temp 98.2. Will continue to monitor patient.
--- NOTE | 2019-03-16 15:07 | NUR ---
NURSE NOTES: Patient's sister Khadijah requesting to have an order for morphine/ativan IVP, preferably morphine. Patient appears to be in pain with facial grimacing and facial redness. Pt's sister is also requesting Vigamox eyedrops for patient's right eye. Dr Evans contact and informed, awaiting for call back/orders.
--- NOTE | 2019-03-16 15:20 | NUR ---
NURSE NOTES: Patient turned and repositioned; all needs attended to. Will continue with plan of care and monitor patient.
--- NOTE | 2019-03-16 15:39 | General Progress Note ---
Assessment/Plan Status: stable Assessment/Plan: Assessment - Resolved stool impaction ( per CT and rectal exam), now with diarrhea - G TF intolerance - s/p G--> GJ conversion - Resp failure / trach - renal failure - contracted / vegetative state - high decub risk Recommendations - TF via J port - G port to gravity - Can give elixer meds via J port - minimize G port meds - Elevate HOB - decub prevention - check C Diff if diarrhea persists off of sorbitol Subjective Allergies: Coded Allergies: OLANZAPINE (Verified Allergy, Severe, RESP FAILURE, 11/25/13) VANCOMYCIN (Verified Allergy, Severe, 11/25/13) PIPERACILLIN (Verified Allergy, Intermediate, HIVES, 11/25/13) TAZOBACTAM (Verified Allergy, Intermediate, HIVES, 11/25/13) Subjective above noted 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 Tolerating TF via J port G port draining gastric secretions sister worried about GT drug absorption CT noted - unrevealing Objective Last 24 Hour Vital Signs Date Time Temp Pulse Resp B/P (MAP) Pulse Ox O2 Delivery O2 Flow Rate FiO2 03/16/19 15:04 86 12 35 03/16/19 13:15 88 16 35 03/16/19 12:00 77 03/16/19 12:00 98.2 90 18 111/56 (74) 97 03/16/19 12:00 35 03/16/19 12:00 Trach Collar 03/16/19 11:40 79 19 97 Mechanical Ventilator 35 03/16/19 11:38 78 19 97 Mechanical Ventilator 35 79 19 35 03/16/19 09:25 87 14 35 03/16/19 09:21 84 134/64 03/16/19 08:00 98.2 84 18 134/64 (87) 97 03/16/19 08:00 35 03/16/19 08:00 Trach Collar 03/16/19 07:54 89 03/16/19 07:27 88 17 98 Mechanical Ventilator 35 89 17 35 03/16/19 05:30 85 18 35 03/16/19 04:00 Trach Collar 03/16/19 04:00 35 03/16/19 04:00 97.7 75 20 123/72 (89) 96 03/16/19 03:45 80 03/16/19 03:30 78 14 95 Mechanical Ventilator 35 78 14 35 03/16/19 01:30 74 16 35 03/16/19 00:00 35 03/16/19 00:00 Trach Collar 03/16/19 00:00 97.5 74 18 126/64 (84) 96 03/15/19 23:37 73 03/15/19 23:09 74 14 97 Mechanical Ventilator 35 74 14 35 03/15/19 21:00 87 99/53 03/15/19 20:56 78 16 35 03/15/19 20:00 97.7 77 18 99/53 (68) 96 03/15/19 20:00 35 03/15/19 20:00 Trach Collar 03/15/19 19:28 80 17 99 Mechanical Ventilator 35 80 17 35 03/15/19 19:26 82 03/15/19 17:05 82 14 35 03/15/19 16:00 35 03/15/19 16:00 98.0 78 20 94/58 (70) 98 03/15/19 16:00 Trach Collar Intake and Output 03/15/19 03/16/19 19:00 07:00 Intake Total 1199 ml 350 ml Balance 1199 ml 350 ml Intake Free Water 30 ml 30 ml IV Total 999 ml Tube Feeding 140 ml 320 ml Other 30 ml # Bowel Movements 2 Laboratory Tests 03/15/19 17:10: Cortisol 9.9 03/16/19 04:20: White Blood Count 8.4, Red Blood Count 4.03L, Hemoglobin 12.9, Hematocrit 38.7, Mean Corpuscular Volume 96, Mean Corpuscular Hemoglobin 32.0H, Mean Corpuscular Hemoglobin Concent 33.2, Red Cell Distribution Width 16.7H, Platelet Count 273, Mean Platelet Volume 7.2, Neutrophils (%) (Auto) 74.9, Lymphocytes (%) (Auto) 15.5L, Monocytes (%) (Auto) 4.5, Eosinophils (%) (Auto) 4.1H, Basophils (%) ( Auto) 1.0, Sodium Level 140, Potassium Level 3.4L, Chloride Level 101, Carbon Dioxide Level 21, Anion Gap 18H, Blood Urea Nitrogen 69H, Creatinine 2.0H, Estimat Glomerular Filtration Rate 25.1, Glucose Level 181H, Calcium Level 9.0, Phosphorus Level 4.4, Magnesium Level 2.3, Total Bilirubin 0.6, Aspartate Amino Transf (AST/SGOT) 29, Alanine Aminotransferase (ALT/SGPT) 45, Alkaline Phosphatase 190H, Total Protein 8.5H, Albumin 3.2L, Globulin 5.3, Albumin/ Globulin Ratio 0.6L Height (Feet): 5 Height (Inches): 4.00 Weight (Pounds): 156 Objective Debilitated nonverbal woman unresponsive, comatose, eyes closed NCAT (+) trach coarse BS RR abd soft , GJT in good position (++) contracted extremities Neuro Coma, contracted Emily Hu MD Mar 16, 2019 15:39
[2019-03-16 16:00] VITALS: BP 115/60
[2019-03-16] MEDS ORDERED: LORazepam Inj 2mg/ml 1ml IV SCH (16:00)
--- NOTE | 2019-03-16 16:15 | NUR ---
NURSE NOTES: Dr Thakur ordered Ativan 0.5mg IVP once; noted, entered, and carried out.
[2019-03-16] MEDS ORDERED: Morphine Sulfate 2mg/ml Inj(IV/IM USE ONLY) IVP PRN (16:30)
--- NOTE | 2019-03-16 17:10 | Cardiology Report ---
APPROVED REPORT EKG Measurement Heart [id number] DC [id number] [id number] Normal sinus rhythm Possible Left atrial enlargement T wave abnormality, consider anterior ischemia Abnormal ECG
--- NOTE | 2019-03-16 17:14 | Nephrology Progress Note ---
Assessment/Plan Assessment 1) VDRF 2) ESRD 3) DM 4) High residual TF, ? Gastroparesis or bowel paralysis, ? Autonomic neuropathy , ? some acute event Plan: HD was done today Levemir 15 units SQ QHS ESR, Vitamin B12, Folate, ESR, CRP, MARELY, Anti DS DNA SIEP, CMV and EBV serology Subjective Subjective She had HD today, Still on the vent, apparent abdominal pain, the GT is to gravity bringing up alot of secretion, Still on TF at 40cc/hr Objective Objective Last 24 Hour Vital Signs Date Time Temp Pulse Resp B/P (MAP) Pulse Ox O2 Delivery O2 Flow Rate FiO2 03/16/19 16:00 35 03/16/19 16:00 Trach Collar 03/16/19 15:04 86 12 35 03/16/19 13:15 88 16 35 03/16/19 12:00 77 03/16/19 12:00 98.2 90 18 111/56 (74) 97 03/16/19 12:00 35 03/16/19 12:00 Trach Collar 03/16/19 11:40 79 19 97 Mechanical Ventilator 35 03/16/19 11:38 78 19 97 Mechanical Ventilator 35 79 19 35 03/16/19 09:25 87 14 35 03/16/19 09:21 84 134/64 03/16/19 08:00 98.2 84 18 134/64 (87) 97 03/16/19 08:00 35 03/16/19 08:00 Trach Collar 03/16/19 07:54 89 03/16/19 07:27 88 17 98 Mechanical Ventilator 35 89 17 35 03/16/19 05:30 85 18 35 03/16/19 04:00 Trach Collar 03/16/19 04:00 35 03/16/19 04:00 97.7 75 20 123/72 (89) 96 03/16/19 03:45 80 03/16/19 03:30 78 14 95 Mechanical Ventilator 35 78 14 35 03/16/19 01:30 74 16 35 03/16/19 00:00 35 03/16/19 00:00 Trach Collar 03/16/19 00:00 97.5 74 18 126/64 (84) 96 03/15/19 23:37 73 03/15/19 23:09 74 14 97 Mechanical Ventilator 35 74 14 35 9/21/19 21:00 87 99/53 03/15/19 20:56 78 16 35 03/15/19 20:00 97.7 77 18 99/53 (68) 96 03/15/19 20:00 35 03/15/19 20:00 Trach Collar 03/15/19 19:28 80 17 99 Mechanical Ventilator 35 80 17 35 03/15/19 19:26 82 Intake and Output 03/15/19 03/16/19 19:00 07:00 Intake Total 1199 ml 350 ml Balance 1199 ml 350 ml Intake Free Water 30 ml 30 ml IV Total 999 ml Tube Feeding 140 ml 320 ml Other 30 ml # Bowel Movements 2 Laboratory Tests 03/15/19 17:10: Cortisol 9.9 03/16/19 04:20: White Blood Count 8.4, Red Blood Count 4.03L, Hemoglobin 12.9, Hematocrit 38.7, Mean Corpuscular Volume 96, Mean Corpuscular Hemoglobin 32.0H, Mean Corpuscular Hemoglobin Concent 33.2, Red Cell Distribution Width 16.7H, Platelet Count 273, Mean Platelet Volume 7.2, Neutrophils (%) (Auto) 74.9, Lymphocytes (%) (Auto) 15.5L, Monocytes (%) (Auto) 4.5, Eosinophils (%) (Auto) 4.1H, Basophils (%) ( Auto) 1.0, Sodium Level 140, Potassium Level 3.4L, Chloride Level 101, Carbon Dioxide Level 21, Anion Gap 18H, Blood Urea Nitrogen 69H, Creatinine 2.0H, Estimat Glomerular Filtration Rate 25.1, Glucose Level 181H, Calcium Level 9.0, Phosphorus Level 4.4, Magnesium Level 2.3, Total Bilirubin 0.6, Aspartate Amino Transf (AST/SGOT) 29, Alanine Aminotransferase (ALT/SGPT) 45, Alkaline Phosphatase 190H, Total Protein 8.5H, Albumin 3.2L, Globulin 5.3, Albumin/ Globulin Ratio 0.6L Height (Feet): 5 Height (Inches): 4.00 Weight (Pounds): 156 General Appearance: WD/WN Neck: non-tender Cardiovascular: normal rate Respiratory/Chest: chest wall non-tender, crackles/rales, rhonchi - left, rhonchi - right Abdomen: hypoactive bowel sounds Neurologic: other - Quadriplegic Ede Thakur MD Mar 16, 2019 17:14
[2019-03-16] MEDS: BISACODYL 10 MG RECTAL PRN ×2 (17:56→18:27)
--- NOTE | 2019-03-16 18:00 | NUR ---
NURSE NOTES: Patient was suctioned, turned and repositioned. preparing pt for bowel regimen per sister's request. Patient in stable condition. Will continue to monitor.
--- NOTE | 2019-03-16 18:30 | NUR ---
RESPIRATORY NOTE: MD changed trach this morning around [id number]. was unaware trach was changed until caregiver said it was done already.
--- NOTE | 2019-03-16 19:16 | NUR ---
HAND-OFF: Report given to PHIL Kenney. Patient in stable condition.
--- NOTE | 2019-03-16 19:16 | NUR ---
NURSE NOTES: Received bedside report from PHIL Aparicio.Patient obtunded,SR on ekg monitor tech,trach Portex 8 AC 12 TV 450 FiO2 35% PEEP 5 tolerated well,Nepro running on Jtube @40ml/hr,GT draining by gravity by Dr.Khorrami dominguez,pt anuric, IV asymptomatic,intact on R hand 22G SL,L Subclavian PermCath for HD,dialysis done no out put,bed secured in a low safety position,call light within a reach,pcg at bedside,will continue to monitor.
[2019-03-16 20:00] VITALS: BP 106/67
[2019-03-16] MEDS: Dyna-Hex 2% Top Sol 2oz TOPIC SCH (20:58)
[2019-03-16] MEDS: Vigamox Opth Soln 3ml RIGHT EYE SCH (21:00)
[2019-03-16] MEDS: Levemir Flexpen SUBQ SCH (21:00)
[2019-03-16] MEDS: Acetaminophen 650mg/20.3ml GT PRN (21:02)
--- NOTE | 2019-03-16 22:00 | NUR ---
NURSE NOTES: Received a phone order from HANNAH Andre for Sorbitol 70% 15 ml once via [employer] Addendum: 03/17/19 at 0550 by Anne Marie Crum RN called and give and order for Sorbitol 15 ml once
[2019-03-16] MEDS ORDERED: Sorbitol Solution UD 30ml NG SCH (23:30)
[2019-03-17] VITALS: BP 115/61
[2019-03-17] MEDS: Lacri-Lube Opth Oint 3.5gm RIGHT EYE SCH ×6 (00:28→20:37)
[2019-03-17] MEDS: SYSTANE ULTRA OPHTHALM SCH ×7 (00:29→20:36)
[2019-03-17] MEDS: NovoLOG Insulin Flexpen SUBQ SCH ×5 (00:30→23:45)
[2019-03-17] MEDS: Albuterol ud Inhalation HHN SCH ×6 (03:16→23:08)
[2019-03-17] MEDS: Ipratropium 0.02% Inh Soln 2.5ml UD HHN SCH ×6 (03:16→23:08)
[2019-03-17 04:00] VITALS: BP 108/71
[2019-03-17 04:44] LABS: BASOPHILS % (AUTO) 0.7 % (0.0-2.0); HEMATOCRIT 42.4 % (37.0-47.0); HEMOGLOBIN 13.9 G/DL (12.0-16.0); LYMPHOCYTES % (AUTO) 11.4 % (20.0-45.0); MEAN CORPUSCULAR VOLUME 96 FL (80-99); MONOCYTES % (AUTO) 4.5 % (1.0-10.0); NEUTROPHILS % (AUTO) 80.5 % (45.0-75.0); PLATELET COUNT 336 K/UL (150-450); RED BLOOD COUNT 4.42 M/UL (4.20-5.40); RED CELL DISTRIBUTION WIDTH 16.6 % (11.6-14.8); WHITE BLOOD COUNT 10.9 K/UL (4.8-10.8)
[2019-03-17 05:41] LABS: ALANINE AMINOTRANSFERASE 43 U/L (12-78); ALBUMIN 3.5 G/DL (3.4-5.0); ALBUMIN/GLOBULIN RATIO 0.6 (1.0-2.7); ALKALINE PHOSPHATASE 227 U/L (46-116); ANION GAP 16 mmol/L (5-15); ASPARTATE AMINO TRANSFERASE 27 U/L (15-37); BILIRUBIN,TOTAL 0.5 MG/DL (0.2-1.0); BLOOD UREA NITROGEN 31 mg/dL (7-18); CALCIUM 9.6 MG/DL (8.5-10.1); CARBON DIOXIDE 24 MMOL/L (21-32); CHLORIDE 98 MMOL/L (98-107); CREATININE 1.4 MG/DL (0.55-1.30); SODIUM 137 MMOL/L (136-145)
[2019-03-17 05:46] LABS: POTASSIUM 2.4 MMOL/L (3.5-5.1)
--- NOTE | 2019-03-17 05:50 | NUR ---
NURSE NOTES: Received a called from Danielito,lab potassium 2.4 MD will notify,charge nurse aware.
--- NOTE | 2019-03-17 05:53 | NUR ---
NURSE NOTES: informed regarding pt's condition,K 2.4 called and left massage.Waiting for respond
--- NOTE | 2019-03-17 07:07 | NUR ---
RESPIRATORY NOTE: Received pt on current vent settings AC 12 VT 450, FiO2 35% PEEP +5. Pt has Portex Bivona 8 cuffed. Pt is vent dependent. Suggested to caregiver to suction, she said "I suction her when peak pressure is above 40." Breathing treatment given, no adverse effects. Family wants trach care and suction to be done by caregiver. Alarms are on and audible. Ambubag bedside. Vent is connected to red outlet. No signs of distress. Will continue to monitor.
--- NOTE | 2019-03-17 07:20 | NUR ---
HAND-OFF: Report given to PHIL Killian.Patient stable,pcg at bedside.
--- NOTE | 2019-03-17 07:25 | NUR ---
NURSE NOTES: Received report from PHIL Kenney. Patient is resting bed in stable condition. No s/sx of SOB, breathing is even and unlabored, vent settings are as ordered. Observed no presence of pain or discomfort at this time. target trimmer, Kalyn, at bedside. GT draining to gravity, replaced collection bag. JT connected to feeding pump with prescribed feeding formula. Call light is kept within easy reach. Will continue to monitor patient.
--- NOTE | 2019-03-17 07:30 | NUR ---
NURSE NOTES: Repositioned patient with outgoing nurse. small engine specialist at bedside.
--- NOTE | 2019-03-17 07:45 | NUR ---
NURSE NOTES: Dr. Jones seen and examined patient at bedside. Informed of potassium level 2.[address] Jones acknowledged, per MD will put in orders. Will continue to monitor patient.
[2019-03-17] MEDS: Sodium Chloride 3% 4ml Nebul Soln INH SCH ×5 (07:52→23:00)
[2019-03-17 07:55] VITALS: BP 109/73
--- NOTE | 2019-03-17 08:12 | Pulmonology Progress Note ---
Assessment/Plan Assessment/Plan respiratory failure chronic encephalopathy trach CRF GT constipation increase in residual hypertension diabetes s/p GT-->JT conversion intolerance of meds gastroparesis PLAN care noted- appears at baseline trach change completed vent as is/ on full support feeds as able replace K per renal gi follow up - will obtain second opinion gt to suction HD and monitor lytes and monitor fluid status skin care and off load monitor hemodynamics chronic care- monitor bowel movements monitor sugars for change not ready for dc yet impression, plan, and exam edited and reviewed in detail care discussed with RN Subjective ROS Limited/Unobtainable: Yes Allergies: Coded Allergies: OLANZAPINE (Verified Allergy, Severe, RESP FAILURE, 11/25/13) VANCOMYCIN (Verified Allergy, Severe, 11/25/13) PIPERACILLIN (Verified Allergy, Intermediate, HIVES, 11/25/13) TAZOBACTAM (Verified Allergy, Intermediate, HIVES, 11/25/13) Subjective care noted and reviewed noted labs mucous plugs concern for aspiration - no new infiltrate on vent/trach change Objective Last 24 Hour Vital Signs Date Time Temp Pulse Resp B/P (MAP) Pulse Ox O2 Delivery O2 Flow Rate FiO2 03/17/19 08:00 Mechanical Ventilator 03/17/19 08:00 35 03/17/19 07:55 97.7 91 14 109/73 (85) 96 03/17/19 07:07 91 19 99 Mechanical Ventilator 35 93 19 35 03/17/19 05:41 83 18 35 03/17/19 04:00 Mechanical Ventilator 03/17/19 04:00 98.1 95 14 108/71 (83) 96 03/17/19 04:00 35 03/17/19 03:43 96 03/17/19 03:13 98 16 92 Mechanical Ventilator 35 98 14 35 03/17/19 02:20 97 15 35 03/17/19 00:00 98.2 85 20 115/61 (79) 99 03/17/19 00:00 Mechanical Ventilator 03/16/19 23:28 83 03/16/19 23:16 85 18 96 Mechanical Ventilator 35 83 18 35 03/16/19 21:32 98.9 03/16/19 21:17 95 18 35 03/16/19 20:59 77 109/62 03/16/19 20:08 91 18 96 Mechanical Ventilator 35 90 16 35 03/16/19 20:00 Mechanical Ventilator 03/16/19 20:00 99.7 77 20 106/67 (80) 94 03/16/19 20:00 35 03/16/19 19:54 87 03/16/19 17:32 95 19 35 03/16/19 16:00 98.1 92 20 115/60 (78) 98 03/16/19 16:00 35 03/16/19 16:00 Mechanical Ventilator 03/16/19 15:33 89 03/16/19 15:04 86 12 35 03/16/19 13:15 88 16 35 03/16/19 12:00 77 03/16/19 12:00 98.2 90 18 111/56 (74) 97 03/16/19 12:00 35 03/16/19 12:00 Trach Collar 03/16/19 11:40 79 19 97 Mechanical Ventilator 35 03/16/19 11:38 78 19 97 Mechanical Ventilator 35 79 19 35 03/16/19 09:25 87 14 35 03/16/19 09:21 84 134/64 Intake and Output 03/16/19 03/17/19 19:00 07:00 Intake Total 600 ml 470 ml Output Total 310 ml Balance 290 ml 470 ml Intake Free Water 60 ml 30 ml Tube Feeding 480 ml 440 ml Other 60 ml Output Gastric Drainage Total 10 ml Other 300 ml Objective WDWN NAD trach reduced breath sounds bilaterally without rhonchi or wheeze [id number] without MRG NABS nontender no HSM no CCE nonfocal poorly responsive at present skin exam noted gt feeds Microbiology Date/Time Source Procedure Growth Status 03/15/19 12:15 Sputum Gram Stain - Final Resulted 03/15/19 12:15 Sputum Culture - Preliminary Gram Negative Bacillus 1 Gram Negative Bacillus 2 Resulted Laboratory Tests 03/16/19 17:50: C-Reactive Protein, Quantitative 9.7H, Vitamin B12 Level 853, Folate 20.1 03/17/19 03:10: White Blood Count 10.9H, Red Blood Count 4.42, Hemoglobin 13.9, Hematocrit 42.4 , Mean Corpuscular Volume 96, Mean Corpuscular Hemoglobin 31.5H, Mean Corpuscular Hemoglobin Concent 32.8, Red Cell Distribution Width 16.6H, Platelet Count 336, Mean Platelet Volume 7.2, Neutrophils (%) (Auto) 80.5H, Lymphocytes (%) (Auto) 11.4L, Monocytes (%) (Auto) 4.5, Eosinophils (%) (Auto) 3.0, Basophils (%) (Auto) 0.7, Sodium Level 137, Potassium Level 2.4*L, Chloride Level 98, Carbon Dioxide Level 24, Anion Gap 16H, Blood Urea Nitrogen 31H, Creatinine 1.4H, Estimat Glomerular Filtration Rate 37.8, Glucose Level 220H, Calcium Level 9.6, Total Bilirubin 0.5, Aspartate Amino Transf (AST/SGOT) 27, Alanine Aminotransferase (ALT/SGPT) 43, Alkaline Phosphatase 227H, Total Protein 9.3H, Albumin 3.5, Globulin 5.8, Albumin/Globulin Ratio 0.6L, Immunoglobulin G [Pending], Immunoglobulin A [Pending], Immunoglobulin M [ Pending], Immunofixation Screen [Pending], Anti-Nuclear Antibody Screen [Pending ], Anti-Double Strand DNA Antibody [Pending], Cytomegalovirus IgG Antibody [ Pending], Damaris-Ellis Virus Capsid Ag IgG Ab [Pending], Damaris-Ellis Virus Capsid Ag IgM Ab [Pending] Current Medications Medications (Trade) Dose Ordered Sig/Alex Route PRN Reason Start Time Stop Time Status Last Admin Dose Admin Acetaminophen (Tylenol) 1,000 mg Q6H PRN GT Mild Pain/Temp > 100.5 03/15/19 12:45 04/10/19 16:29 03/16/19 21:02 Acetaminophen/ Hydrocodone Bitart (Crescent 5/325) 1 tab Q4H PRN GT Moderate Pain (Pain Scale 4-6) 03/15/19 12:45 03/20/19 22:59 Albuterol Sulfate (Proventil) 2.5 mg Q4HRT HHN 03/16/19 19:00 03/21/19 14:59 03/17/19 07:06 Artificial Tears (Lacri-Lube) 1 applic Q4HR RIGHT EYE 03/15/19 13:00 04/14/19 12:59 03/17/19 05:34 Barium Sulfate (Readi-Cat 2) 450 ml NOW PRN ORAL Radiology Procedure 03/15/19 13:30 03/17/19 13:21 Carvedilol (Coreg) 12.5 mg EVERY 12 HOURS GT 03/11/19 21:00 04/10/19 20:59 03/16/19 09:21 Chlorhexidine Gluconate (Rubina-Hex 2%) 1 applic DAILY@2000 TOPIC 03/12/19 20:00 04/11/19 19:59 03/16/19 20:58 Dextrose (Dextrose 50%) 25 ml Q30M PRN IV Hypoglycemia 03/11/19 17:15 04/10/19 17:14 Dextrose (Dextrose 50%) 50 ml Q30M PRN IV Hypoglycemia 03/11/19 17:15 04/10/19 17:14 Epoetin Amadou (Epoetin Amadou(ESRD on dialysis)) 10,000 unit ONCE A WEEK SUBQ 03/19/19 21:00 04/18/19 20:59 Insulin Aspart (NovoLOG) EVERY 6 HOURS SUBQ 03/11/19 18:00 04/10/19 17:59 03/17/19 05:35 Insulin Detemir (Levemir) 15 units BEDTIME SUBQ 03/15/19 21:00 04/14/19 20:59 03/16/19 21:00 Iohexol (OMNIPAQUE-300 100ml) 100 ml NOW PRN INJ Radiology Procedure 03/15/19 13:30 03/17/19 13:21 Ipratropium [place] (Atrovent) 500 mcg Q4HRT HHN 03/16/19 19:00 03/21/19 14:59 03/17/19 07:06 Levothyroxine Sodium (Synthroid) 200 mcg QHS GT 03/11/19 21:00 04/10/19 20:59 03/16/19 20:59 Lorazepam (Ativan) 0.5 mg Q6H PRN GT For Anxiety 03/11/19 16:00 03/18/19 15:59 03/14/19 01:43 Morphine Sulfate (Morphine Sulfate) 2 mg Q3H PRN IVP severe pain 03/16/19 16:45 03/23/19 16:29 Moxifloxacin HCl (Vigamox) 1 drop Q12HR RIGHT EYE 03/16/19 21:00 03/23/19 20:59 03/16/19 21:00 Multivitamins (Multivitamins) 1 tab DAILY GT 03/12/19 09:00 04/11/19 08:59 03/16/19 09:22 Patient Own Medication (Patient's Own Med) 1 ea DAILYPRN PRN RECTAL constipation 03/11/19 21:15 04/10/19 21:14 03/16/19 18:27 Patient Own Medication (Patient's Own Med) 2 ea Q4HR OPHTHALM 03/13/19 21:00 04/10/19 20:59 03/17/19 05:34 Sodium Chloride (Sodium Chloride Dey-Nicolas 3%) 4 ml Q4HRT INH 03/17/19 07:00 04/16/19 06:59 03/17/19 07:52 Vitamin B Complex/ Vit C/Folic Acid (Nephrovite) 1 tab DAILY GT 03/12/19 09:00 04/11/19 08:59 03/16/19 09:21 Maykel Evans MD Mar 17, 2019 08:12
--- NOTE | 2019-03-17 08:50 | NUR ---
NURSE NOTES: Dr. Jones ordered potassium replacement. Orders entered, noted, and carried out. Will continue to monitor patient.
[2019-03-17] MEDS: Carvedilol 12.5mg tab GT SCH ×3 (09:00→20:35)
[2019-03-17] MEDS: Vigamox Opth Soln 3ml RIGHT EYE SCH ×2 (09:02→20:37)
[2019-03-17] MEDS: Nephrovite tab (Rena-Vite) GT SCH (09:03)
--- NOTE | 2019-03-17 09:09 | General Progress Note ---
Assessment/Plan Problem List: (1) Tracheostomy malfunction ICD Codes: J95.03 - Malfunction of tracheostomy stoma SNOMED: 27989089 (2) Acute renal failure ICD Codes: N17.9 - Acute kidney failure, unspecified SNOMED: 77080482 (3) Pericardial effusion ICD Codes: I31.3 - Pericardial effusion (noninflammatory) SNOMED: 633546571 (4) Sepsis ICD Codes: A41.9 - Sepsis, unspecified organism SNOMED: 04931797 (5) Pneumonia ICD Codes: J18.9 - Pneumonia, unspecified organism SNOMED: 781434348 (6) Tracheostomy malfunction ICD Codes: J95.03 - Malfunction of tracheostomy stoma SNOMED: 12039430 (7) Hypotension ICD Codes: I95.9 - Hypotension, unspecified SNOMED: 14437671 (8) Fecal impaction ICD Codes: K56.41 - Fecal impaction SNOMED: 84781032 Status: stable Assessment/Plan: j tube feeds monitor residuals g tube to gravity added reglan iv clamp g port after giving meds bowel regime monitor renal fxn/labs- replace lytes skin care vent support resp care monitor secretions Subjective ROS Limited/Unobtainable: No Constitutional: Reports: malaise, weakness HEENT: Reports: no symptoms Cardiovascular: Reports: no symptoms Respiratory: Reports: cough Gastrointestinal/Abdominal: Reports: abdomen distended, difficulty swallowing Genitourinary: Reports: no symptoms Neurologic/Psychiatric: Reports: pre-existing deficit Endocrine: Reports: no symptoms Hematologic/Lymphatic: Reports: anemia Allergies: Coded Allergies: OLANZAPINE (Verified Allergy, Severe, RESP FAILURE, 11/25/13) VANCOMYCIN (Verified Allergy, Severe, 11/25/13) PIPERACILLIN (Verified Allergy, Intermediate, HIVES, 11/25/13) TAZOBACTAM (Verified Allergy, Intermediate, HIVES, 11/25/13) All Systems: reviewed and negative except above Subjective no events. tolerating j tube feeds. not tolerating meds- large volume output from G port. no bowel movements Objective Last 24 Hour Vital Signs Date Time Temp Pulse Resp B/P (MAP) Pulse Ox O2 Delivery O2 Flow Rate FiO2 03/17/19 09:02 91 109/73 03/17/19 08:00 Mechanical Ventilator 03/17/19 08:00 35 03/17/19 07:55 97.7 91 14 109/73 (85) 96 03/17/19 07:07 91 19 99 Mechanical Ventilator 35 93 19 35 03/17/19 05:41 83 18 35 03/17/19 04:00 Mechanical Ventilator 03/17/19 04:00 98.1 95 14 108/71 (83) 96 03/17/19 04:00 35 03/17/19 03:43 96 03/17/19 03:13 98 16 92 Mechanical Ventilator 35 98 14 35 03/17/19 02:20 97 15 35 03/17/19 00:00 98.2 85 20 115/61 (79) 99 03/17/19 00:00 Mechanical Ventilator 03/16/19 23:28 83 03/16/19 23:16 85 18 96 Mechanical Ventilator 35 83 18 35 03/16/19 21:32 98.9 03/16/19 21:17 95 18 35 03/16/19 20:59 77 109/62 03/16/19 20:08 91 18 96 Mechanical Ventilator 35 90 16 35 03/16/19 20:00 Mechanical Ventilator 03/16/19 20:00 99.7 77 20 106/67 (80) 94 03/16/19 20:00 35 03/16/19 19:54 87 03/16/19 17:32 95 19 35 03/16/19 16:00 98.1 92 20 115/60 (78) 98 03/16/19 16:00 35 03/16/19 16:00 Mechanical Ventilator 03/16/19 15:33 89 03/16/19 15:04 86 12 35 03/16/19 13:15 88 16 35 03/16/19 12:00 77 03/16/19 12:00 98.2 90 18 111/56 (74) 97 03/16/19 12:00 35 03/16/19 12:00 Trach Collar 03/16/19 11:40 79 19 97 Mechanical Ventilator 35 03/16/19 11:38 78 19 97 Mechanical Ventilator 35 79 19 35 03/16/19 09:25 87 14 35 03/16/19 09:21 84 134/64 Intake and Output 03/16/19 03/17/19 19:00 07:00 Intake Total 600 ml 470 ml Output Total 310 ml Balance 290 ml 470 ml Intake Free Water 60 ml 30 ml Tube Feeding 480 ml 440 ml Other 60 ml Output Gastric Drainage Total 10 ml Other 300 ml Laboratory Tests 03/16/19 17:50: C-Reactive Protein, Quantitative 9.7H, Vitamin B12 Level 853, Folate 20.1 03/17/19 03:10: White Blood Count 10.9H, Red Blood Count 4.42, Hemoglobin 13.9, Hematocrit 42.4 , Mean Corpuscular Volume 96, Mean Corpuscular Hemoglobin 31.5H, Mean Corpuscular Hemoglobin Concent 32.8, Red Cell Distribution Width 16.6H, Platelet Count 336, Mean Platelet Volume 7.2, Neutrophils (%) (Auto) 80.5H, Lymphocytes (%) (Auto) 11.4L, Monocytes (%) (Auto) 4.5, Eosinophils (%) (Auto) 3.0, Basophils (%) (Auto) 0.7, Sodium Level 137, Potassium Level 2.4*L, Chloride Level 98, Carbon Dioxide Level 24, Anion Gap 16H, Blood Urea Nitrogen 31H, Creatinine 1.4H, Estimat Glomerular Filtration Rate 37.8, Glucose Level 220H, Calcium Level 9.6, Total Bilirubin 0.5, Aspartate Amino Transf (AST/SGOT) 27, Alanine Aminotransferase (ALT/SGPT) 43, Alkaline Phosphatase 227H, Total Protein 9.3H, Albumin 3.5, Globulin 5.8, Albumin/Globulin Ratio 0.6L, Immunoglobulin G [Pending], Immunoglobulin A [Pending], Immunoglobulin M [ Pending], Immunofixation Screen [Pending], Anti-Nuclear Antibody Screen [Pending ], Anti-Double Strand DNA Antibody [Pending], Cytomegalovirus IgG Antibody [ Pending], Damaris-Ellis Virus Capsid Ag IgG Ab [Pending], Damaris-Ellis Virus Capsid Ag IgM Ab [Pending] Height (Feet): 5 Height (Inches): 4.00 Weight (Pounds): 156 Objective General Appearance: WD/WN, alert Neck: supple Cardiovascular: regular rhythm Respiratory/Chest: chest wall non-tender, rhonchi - bilaterally Abdomen: normal bowel sounds, non tender, soft, no organomegaly Edema: no edema noted Arm (L), no edema noted Arm (R), no edema noted Leg (L), no edema noted Leg (R), no edema noted Pedal (L), no edema noted Pedal (R), no edema noted Generalized Neurologic: disoriented, unresponsive, aphasia Pito Jones MD Mar 17, 2019 09:09
[2019-03-17] MEDS ORDERED: Metoclopramide 10mg/2ml Inj IVP PRN (09:15)
--- NOTE | 2019-03-17 09:17 | NUR ---
RADIOLOGY DEPT., CHEST X-RAY DONE.-P.DYE
[2019-03-17] MEDS ORDERED: Sodium Chloride for KCL Premix X 4hrs IV SCH (09:30)
--- NOTE | 2019-03-17 09:30 | NUR ---
NURSE NOTES: Per request of family member, patient's primary care coordinator is to apply ophthalmic solutions. Medications applied by Kaelyn, primary care coordinator at bedside. Noted. Medications returned to patient's bin. Noted. Will continue to monitor patient.
--- NOTE | 2019-03-17 11:00 | NUR ---
NURSE NOTES: Repositioned patient with caregiver Kaelyn at bedside.
--- NOTE | 2019-03-17 11:23 | Diagnostic Imaging Report ---
Indication: Dyspnea Comparison: 03/16/2019 A single view chest radiograph was obtained. Findings: Heart size is stable. Tracheostomy noted. Pulmonary interstitial prominence again demonstrated, acuity indeterminate. Bones are osteopenic. Permacath noted. IMPRESSION: No change from the prior study
[2019-03-17 12:00] VITALS: BP 127/62
--- NOTE | 2019-03-17 12:08 | NUR ---
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 CURRENT TF:Nepro @ 40ml/hr x 22 hrs ENTERAL NUTRITION RECOMMENDATIONS: Nepro @ 40ml/hr x 22 hrs to provide 880ml, 1584kcal, 71g prot, 640ml free H20 - Maintain current TF - Hold 1 hr before and after Synthroid med - HOB >45 degrees/Free H20 flushes per MD ADDITIONAL RECOMMENDATIONS: 1) RECALIBRATED bedscale wt for accurate CBW 2) Monitor lytes, replete as needed 3) Monitor TF tolerance: admitted w/ c/o elev TF residuals -> s/p GJ conversion, now well tolerated 4) Consider increasing Levemir to BID for improved BG values
--- NOTE | 2019-03-17 12:53 | NUR ---
NURSE NOTES: Dr. Roldan seen and examined patient at bedside. Dr. oRldan examined drainage of G-tube and this nurse informed MD that patient had large bowel movement. Dr. Roldan spoke with patient's sister via telephone. Dr. Roldan gave instructions to this nurse, "Stop gravity drain of G-tube, place G-tube on low-intermittent suction, clamp G-tube 1 hour after administration of medications, then resume low-intermittent suction." Orders entered, noted, and carried out. Will continue to monitor patient.
--- NOTE | 2019-03-17 12:54 | NUR ---
NURSE NOTES: Made Dr. Roldan aware that patient's potassium level today is 2.[address] Jones ordered potassium chloride 10 mEq IV x 4. Dr. Roldan acknowledged and ordered to have potassium level checked two hours after last bag of potassium chloride IV. Order entered, noted, and carried out. Will continue to monitor patient.
--- NOTE | 2019-03-17 12:56 | NUR ---
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 97.0 HR 91 RR 14 B/P 127/62 AC 12 TV 450 FIO2 30% PEEP 5 WBC 10.9 K 2.4 BUN 31 CR 1.4 CXR= NO ACUTE CHANGES IS: IVF NS KCL IV STEP DOWN STATUS
[2019-03-17] MEDS: BISACODYL 10 MG RECTAL PRN (13:01)
--- NOTE | 2019-03-17 13:15 | NUR ---
NURSE NOTES: Repositioned patient with caregiver Kaelyn at bedside.
[2019-03-17] MEDS: Acetaminophen 650mg/20.3ml GT PRN (13:24)
--- NOTE | 2019-03-17 14:00 | NUR ---
NURSE NOTES: Repositioned patient with caregiver Kaelyn.
--- NOTE | 2019-03-17 14:15 | NUR ---
NURSE NOTES: Attempted to flush patient's scheduled J-tube flush of 30 ml Q8HRS as ordered, noted unable to flush. Contacted and notified Dr. Roldan who is covering for Dr. Hu. Dr. Roldan acknowledged, ordered to flush J-tube with warm cranberry juice and contact Dr. Hu. Order entered, noted, and carried out. Charge nurse made aware.
--- NOTE | 2019-03-17 15:00 | NUR ---
NURSE NOTES: Contacted and informed Dr. Evans that patient has had temperature of 100.7 F rectally, tylenol 1000 mg given, reassessment was 100.2 F rectally, also informed Dr. Evans that patient's WBC today is 10.9 and no antibiotics scheduled in orders at this time. Dr. Evans acknowledged and ordered Sputum culture and urine culture, informed Dr. Evans that patient is anuric. Dr. Evans also ordered blood culture x 2. Orders entered, noted, and carried out. Will continue to monitor patent.
[2019-03-17 15:50] VITALS: BP 105/67
--- NOTE | 2019-03-17 16:30 | NUR ---
NURSE NOTES: Repositioned patient with caregiver Kaelyn at bedside.
--- NOTE | 2019-03-17 17:00 | NUR ---
NURSE NOTES: Informed Dr. Roldan that J-Tube is now flushing.
--- NOTE | 2019-03-17 17:00 | Consultation ---
DATE OF CONSULTATION: 03/17/2019 CONSULTING PHYSICIAN: Earl Roldan M.D. CHIEF COMPLAINT: Gastroparesis. HISTORY OF PRESENT ILLNESS: Most of the history was obtained per chart and her family. This is a 64-year-old female, living at home, on dialysis, on vent. Apparently, her sister who has been taking care of her for many years. She has been doing all right at home. The patient was admitted to the hospital for fecal impaction. Subsequently, she had gastroparesis. A tube feeding was not tolerated, requiring GJ tube conversion by Dr. Hu on Sunday the patient had a second opinion per Dr. Hu's request. PAST MEDICAL HISTORY: 1. History of anoxic encephalopathy. 2. Chronic dysphagia with failure on vent. 3. Renal failure, on dialysis. 4. Dysphagia with a G-tube. 5. Diabetes. 6. Hypothyroidism. 7. CHF. 8. Fatty liver. PAST SURGICAL HISTORY: As above including tracheostomy. ALLERGIES: She has allergies to olanzapine, piperacillin, tazobactam, and vancomycin. SOCIAL HISTORY: Currently living at home with the family. REVIEW OF SYSTEMS: Limited. PHYSICAL EXAMINATION: VITAL SIGNS: Temperature is 97, pulse 91, respirations 14, blood pressure is 127/62. HEENT: Normocephalic and atraumatic. Sclerae anicteric. NECK: Supple. No evidence of lymphadenopathy. CARDIOVASCULAR: Regular rate and rhythm. Plus S1 and S2. No murmur. LUNGS: Decreased breath sounds bilaterally based on the supine exam. ABDOMEN: Soft and nontender. GJ-tube in place. No rebound. No guarding. No peritoneal sign. EXTREMITIES: No cyanosis. No clubbing. No edema. LABORATORY DATA: White count is 10, hemoglobin 13, hematocrit 42, platelet count is 336,000. Chem 7, sodium 137, potassium 2.4, BUN is 21, creatinine is 1.4. ASSESSMENT AND PLAN: This is a 64-year-old female with chronic respiratory failure, renal failure, dysphagia, diabetes, possible diabetes-induced gastroparesis. I spent a lot of time talking to the sister over the phone regarding the cause of gastroparesis and our plan at this time will be to continue on feeding through the J-tube, which this patient is tolerating and even creatinine is improving. G-tube to low intermittent suction. Continue on the Reglan IV for at least another week. I started Colace and MiraLAX for better bowel regimen. Continue adding lactulose if needed. The patient had a BM today. I agree with Dr. Hu's workup and treatment so far. I thank you for this second opinion consult. Please feel free to call me back again if you have any more questions. Earl Roldan M.D. DR: JERMAINE JOB#: [id number] CC:
[2019-03-17] MEDS: Docusate 100mg/10ml Liq GT SCH (17:30)
--- NOTE | 2019-03-17 17:30 | NUR ---
NURSE NOTES: Patient noted with redness on right hip, blanchable. Skin barrier and optifoam placed. Charge nurse made aware. Pictures taken. Will continue to monitor patient.
--- NOTE | 2019-03-17 17:30 | NUR ---
NURSE NOTES: Informed Dr. Hu that J-tube is now flushing. Also informed Dr. Hu that dietitian recommends using Nepro 8 oz bolus for breakfast, lunch, and dinner, and 4 oz at bedtime for feeding. Dr. Hu acknowledged and ordered to change feeding per dietitian recommendations. Will endorse accordingly. Also informed Dr. Hu that patient's sister would like to speak with him regarding results of EGD performed during the weekend. Dr. Hu acknowledged and informed this nurse, unable to do so at this time as that he is with another patient at the moment. Also informed Dr. Hu that lab for H.pylori is unable to be seen in lab results at this time, per Dr. Hu, it will take 2-3 business days to resulted. Noted. Will continue to monitor patient.
[2019-03-17] MEDS ORDERED: Docusate 100mg cap ORAL SCH (18:00)
--- NOTE | 2019-03-17 18:00 | NUR ---
NURSE NOTES: Repositioned patient with caregiver Kaelyn.
--- NOTE | 2019-03-17 18:49 | NUR ---
NURSE NOTES: Dr. Thakur seen and examined patient at bedside. Caregiver Kaelyn and sister, Khadijah at bedside.
--- NOTE | 2019-03-17 19:07 | Nephrology Progress Note ---
Assessment/Plan Assessment 1) VDRF 2) ESRD 3) DM 4) Gastroparesis 5) ? atypical PNA, 6) Doubt CHF Plan: HD tomorrow Awaiting serological w/u Awaiting sputum Cx Probably will need IV ATB Subjective Subjective She has been having still gastric drainage, some fever of 100.2, K was 2.4, after repletion is was 3.6, CXR some interstitial pattern, the sputum is growing gram negative bacillus Objective Objective Last 24 Hour Vital Signs Date Time Temp Pulse Resp B/P (MAP) Pulse Ox O2 Delivery O2 Flow Rate FiO2 03/17/19 18:53 89 18 99 Mechanical Ventilator 35 89 18 35 03/17/19 17:15 92 17 35 03/17/19 16:00 35 03/17/19 16:00 92 03/17/19 16:00 Mechanical Ventilator 03/17/19 15:50 100.2 89 14 105/67 (80) 98 03/17/19 14:54 93 17 99 Mechanical Ventilator 35 94 18 35 03/17/19 13:54 100.2 03/17/19 13:48 95 20 35 03/17/19 12:00 35 03/17/19 12:00 97.0 91 14 127/62 (83) 98 03/17/19 12:00 90 03/17/19 12:00 Mechanical Ventilator 03/17/19 11:02 96 20 99 Mechanical Ventilator 35 96 16 35 03/17/19 09:19 98 15 35 03/17/19 08:00 Mechanical Ventilator 03/17/19 08:00 91 03/17/19 08:00 35 03/17/19 07:55 97.7 91 14 109/73 (85) 96 03/17/19 07:07 91 19 99 Mechanical Ventilator 35 93 19 35 03/17/19 05:41 83 18 35 03/17/19 04:00 Mechanical Ventilator 03/17/19 04:00 98.1 95 14 108/71 (83) 96 03/17/19 04:00 35 03/17/19 03:43 96 03/17/19 03:13 98 16 92 Mechanical Ventilator 35 98 14 35 03/17/19 02:20 97 15 35 03/17/19 00:00 98.2 85 20 115/61 (79) 99 03/17/19 00:00 Mechanical Ventilator 03/16/19 23:28 83 03/16/19 23:16 85 18 96 Mechanical Ventilator 35 83 18 35 03/16/19 21:17 95 18 35 03/16/19 20:59 77 109/62 03/16/19 20:08 91 18 96 Mechanical Ventilator 35 90 16 35 03/16/19 20:00 Mechanical Ventilator 03/16/19 20:00 99.7 77 20 106/67 (80) 94 03/16/19 20:00 35 03/16/19 19:54 87 Intake and Output 03/16/19 03/17/19 19:00 07:00 Intake Total 600 ml 510 ml Output Total 310 ml Balance 290 ml 510 ml Intake Free Water 60 ml 30 ml Tube Feeding 480 ml 480 ml Other 60 ml Output Gastric Drainage Total 10 ml Other 300 ml Laboratory Tests 03/17/19 03:10: White Blood Count 10.9H, Red Blood Count 4.42, Hemoglobin 13.9, Hematocrit 42.4 , Mean Corpuscular Volume 96, Mean Corpuscular Hemoglobin 31.5H, Mean Corpuscular Hemoglobin Concent 32.8, Red Cell Distribution Width 16.6H, Platelet Count 336, Mean Platelet Volume 7.2, Neutrophils (%) (Auto) 80.5H, Lymphocytes (%) (Auto) 11.4L, Monocytes (%) (Auto) 4.5, Eosinophils (%) (Auto) 3.0, Basophils (%) (Auto) 0.7, Sodium Level 137, Potassium Level 2.4*L, Chloride Level 98, Carbon Dioxide Level 24, Anion Gap 16H, Blood Urea Nitrogen 31H, Creatinine 1.4H, Estimat Glomerular Filtration Rate 37.8, Glucose Level 220H, Calcium Level 9.6, Total Bilirubin 0.5, Aspartate Amino Transf (AST/SGOT) 27, Alanine Aminotransferase (ALT/SGPT) 43, Alkaline Phosphatase 227H, Total Protein 9.3H, Albumin 3.5, Globulin 5.8, Albumin/Globulin Ratio 0.6L, Immunoglobulin G [Pending], Immunoglobulin A [Pending], Immunoglobulin M [ Pending], Immunofixation Screen [Pending], Anti-Nuclear Antibody Screen [Pending ], Anti-Double Strand DNA Antibody [Pending], Cytomegalovirus IgG Antibody [ Pending], Damaris-Ellis Virus Capsid Ag IgG Ab [Pending], Damaris-Ellis Virus Capsid Ag IgM Ab [Pending] 9/23/19 16:20: Potassium Level 3.6 Height (Feet): 5 Height (Inches): 4.00 Weight (Pounds): 156 General Appearance: WD/WN, other - on the vent EENT: PERRL/EOMI Neck: non-tender, normal alignment Cardiovascular: normal rate, regular rhythm, no JVD Respiratory/Chest: chest wall non-tender, rhonchi - bilaterally Abdomen: hypoactive bowel sounds Extremities: non-tender - quadraplegic Neurologic: other Ede Thakur MD Mar 17, 2019 19:07
--- NOTE | 2019-03-17 19:25 | NUR ---
NURSE NOTES: Called [facility] and spoke with Ashlee. Informed Brigetter of hemodialysis tomorrow per Dr. Thakur. Ashlee acknowledged and informed this nurse will notify HD nurse. Noted. Charge nurse made aware.
--- NOTE | 2019-03-17 19:30 | NUR ---
HAND-OFF: Report given to PHIL Verdin.
[2019-03-17 20:00] VITALS: BP 93/54
--- NOTE | 2019-03-17 20:00 | NUR ---
NURSE NOTES: Pt turned and repositioned with bed side med care manager. pt remains stable.
[2019-03-17] MEDS: Dyna-Hex 2% Top Sol 2oz TOPIC SCH (20:34)
[2019-03-17] MEDS: Miralax 17gm pkt ORAL SCH (20:37)
[2019-03-17] MEDS: Levemir Flexpen SUBQ SCH (20:44)
--- NOTE | 2019-03-17 22:00 | NUR ---
NURSE NOTES: Pt turned and repositioned with bed side progressive care unit registered nurse. pt remains stable.
[2019-03-18] VITALS: BP 98/63
[2019-03-18] MEDS: SYSTANE ULTRA OPHTHALM SCH ×6 (00:17→21:05)
[2019-03-18] MEDS: Lacri-Lube Opth Oint 3.5gm RIGHT EYE SCH ×6 (00:17→21:05)
[2019-03-18] MEDS: Ipratropium 0.02% Inh Soln 2.5ml UD HHN SCH ×6 (02:58→23:48)
[2019-03-18] MEDS: Albuterol ud Inhalation HHN SCH ×6 (02:58→23:48)
[2019-03-18] MEDS: Sodium Chloride 3% 4ml Nebul Soln INH SCH ×6 (03:22→23:00)
[2019-03-18 04:10] VITALS: BP 92/59
[2019-03-18 04:57] LABS: BASOPHILS % (AUTO) 0.8 % (0.0-2.0); EOSINOPHILS % (AUTO) 3.4 % (0.0-3.0); HEMATOCRIT 40.8 % (37.0-47.0); HEMOGLOBIN 13.7 G/DL (12.0-16.0); LYMPHOCYTES % (AUTO) 12.4 % (20.0-45.0); MEAN CORPUSCULAR VOLUME 94 FL (80-99); MONOCYTES % (AUTO) 4.3 % (1.0-10.0); PLATELET COUNT 346 K/UL (150-450); RED BLOOD COUNT 4.35 M/UL (4.20-5.40); RED CELL DISTRIBUTION WIDTH 16.2 % (11.6-14.8); WHITE BLOOD COUNT 12.2 K/UL (4.8-10.8)
[2019-03-18 05:09] LABS: ALANINE AMINOTRANSFERASE 37 U/L (12-78); ALBUMIN 3.3 G/DL (3.4-5.0); ALBUMIN/GLOBULIN RATIO 0.6 (1.0-2.7); ALKALINE PHOSPHATASE 201 U/L (46-116); ANION GAP 15 mmol/L (5-15); ASPARTATE AMINO TRANSFERASE 22 U/L (15-37); BILIRUBIN,TOTAL 0.6 MG/DL (0.2-1.0); BLOOD UREA NITROGEN 48 mg/dL (7-18); CALCIUM 9.5 MG/DL (8.5-10.1); CARBON DIOXIDE 23 MMOL/L (21-32); CHLORIDE 94 MMOL/L (98-107); CREATININE 1.8 MG/DL (0.55-1.30); SODIUM 134 MMOL/L (136-145)
[2019-03-18] MEDS: NovoLOG Insulin Flexpen SUBQ SCH ×4 (05:14→23:38)
[2019-03-18 05:30] LABS: POTASSIUM 2.7 MMOL/L (3.5-5.1)
--- NOTE | 2019-03-18 06:40 | NUR ---
NURSE NOTES: called multi needle machine operator (Areli) to mono Batres over head to call SDU unit. critical lab of Potassium 2.7 to be reported.
--- NOTE | 2019-03-18 07:00 | NUR ---
RESPIRATORY NOTES: Received Patient on Vent settings ACVC 12, VT 450, Fio2 35%, PEEP +5. Patient currently trached with a Portex Bivona 8 tracheostomy tube, secured by trache ties. Patient obtundent. Breath sounds are bilateral rhonchi throughout both lung luna. Vent plugged into red outlet. Alarms are on and audible. Will continue to monitor throughout the day.
--- NOTE | 2019-03-18 07:09 | NUR ---
NURSE NOTES: MD Jones ordered 60mEq Potassium IVP to be infused over 6hrs. Contacted Pharmacist Angel and reported order.
--- NOTE | 2019-03-18 07:15 | NUR ---
HAND-OFF: Report given to Laura Orr Pt remains stable.
--- NOTE | 2019-03-18 07:20 | NUR ---
NURSE NOTES: Med Sodium Chloride Dey-Nicolas 4ML taken out of Pyxis. Med handed to RT elisabeth to be scanned and given.
--- NOTE | 2019-03-18 07:25 | NUR ---
NURSE NOTES: Report received from Constantin Verdin RN.Pt resting in bed obtunded ,in no resp distress with trach tube to mech vent,on current ordered settings,tolerating well,no signs of pain or discomfort,S-Tach on the monitor,Pt with clamped Jejunodstomy ,,on Nepro feeding given bolus,1 can every breakfast,lunch dinner and HS.Pt also has a gastrostomy tube to low intermittent suction,pt anuric,on HD, with LT SC Hemodialysis catheter ,IV site to RH intact,skin warm and dry ,no skin break noted to sacrum, optifoam applied for protection,on P2 mattress,Sup x2 HOB elevated,bed lock in lowest position,caregiver at bedside,will continue with plans of care.
[2019-03-18] MEDS ORDERED: [UNRECOGNIZED DRUG - REMARK] IV SCH (07:30)
[2019-03-18 08:00] VITALS: BP 105/74
--- NOTE | 2019-03-18 08:20 | Pulmonology Progress Note ---
Assessment/Plan Assessment/Plan respiratory failure chronic encephalopathy trach CRF GT constipation increase in residual hypertension diabetes s/p GT-->JT conversion intolerance of meds gastroparesis PLAN ID evaluation consider inhaled colistin vent as is/ on full support feeds as able replace K per renal gi follow up - monitor absorption gt to suction HD and monitor lytes and monitor fluid status skin care and off load monitor hemodynamics chronic care- monitor bowel movements monitor sugars for change not ready for dc yet impression, plan, and exam edited and reviewed in detail care discussed with RN Subjective ROS Limited/Unobtainable: Yes Allergies: Coded Allergies: OLANZAPINE (Verified Allergy, Severe, RESP FAILURE, 11/25/13) VANCOMYCIN (Verified Allergy, Severe, 11/25/13) PIPERACILLIN (Verified Allergy, Intermediate, HIVES, 11/25/13) TAZOBACTAM (Verified Allergy, Intermediate, HIVES, 11/25/13) Subjective care noted and reviewed noted labs noted elevated wbc and low grade fevers concern for aspiration - no new infiltrate on CXr on vent/trach change d/w second opinion gi Objective Last 24 Hour Vital Signs Date Time Temp Pulse Resp B/P (MAP) Pulse Ox O2 Delivery O2 Flow Rate FiO2 03/18/19 07:17 93 16 98 Mechanical Ventilator 35 93 17 35 03/18/19 05:06 87 17 35 03/18/19 04:10 97.9 88 14 92/59 (70) 99 03/18/19 04:00 88 03/18/19 04:00 35 03/18/19 04:00 Mechanical Ventilator 03/18/19 02:58 91 18 99 Mechanical Ventilator 35 90 16 35 03/18/19 01:15 89 16 35 03/18/19 00:00 35 03/18/19 00:00 98.0 93 14 98/63 (75) 99 03/18/19 00:00 Mechanical Ventilator 03/18/19 00:00 93 03/17/19 22:56 95 17 98 Mechanical Ventilator 35 96 17 35 03/17/19 20:35 85 96/52 03/17/19 20:34 86 17 35 03/17/19 20:00 97.3 85 14 93/54 (67) 99 03/17/19 20:00 Mechanical Ventilator 03/17/19 20:00 35 03/17/19 19:02 88 03/17/19 18:53 89 18 99 Mechanical Ventilator 35 89 18 35 03/17/19 17:15 92 17 35 03/17/19 16:00 35 03/17/19 16:00 92 03/17/19 16:00 Mechanical Ventilator 03/17/19 15:50 100.2 89 14 105/67 (80) 98 03/17/19 14:54 93 17 99 Mechanical Ventilator 35 94 18 35 03/17/19 13:54 100.2 03/17/19 13:48 95 20 35 03/17/19 12:00 35 03/17/19 12:00 97.0 91 14 127/62 (83) 98 03/17/19 12:00 90 03/17/19 12:00 Mechanical Ventilator 03/17/19 11:02 96 20 99 Mechanical Ventilator 35 96 16 35 03/17/19 09:19 98 15 35 Intake and Output 03/17/19 03/18/19 19:00 07:00 Intake Total 400 ml Output Total 600 ml Balance -200 ml Intake Free Water 120 ml Tube Feeding 280 ml Other 600 ml Objective WDWN NAD trach reduced breath sounds bilaterally without rhonchi or wheeze [id number] without MRG NABS nontender no HSM no CCE nonfocal poorly responsive at present skin exam noted gt feeds Microbiology Date/Time Source Procedure Growth Status 03/17/19 20:30 Sputum Gram Stain - Final Resulted 03/17/19 20:30 Sputum Sputum Culture Pending Resulted 03/15/19 12:15 Sputum Gram Stain - Final Resulted 03/15/19 12:15 Sputum Culture - Preliminary Gram Negative Bacillus 1 Gram Negative Bacillus 2 Resulted Laboratory Tests 03/17/19 16:20: Potassium Level 3.6 03/18/19 03:30: Potassium Level 2.7*L, White Blood Count 12.2H, Red Blood Count 4.35, Hemoglobin 13.7, Hematocrit 40.8, Mean Corpuscular Volume 94, Mean Corpuscular Hemoglobin 31.6H, Mean Corpuscular Hemoglobin Concent 33.6, Red Cell Distribution Width 16.2H, Platelet Count 346, Mean Platelet Volume 7.3, Neutrophils (%) (Auto) 79.0H, Lymphocytes (%) (Auto) 12.4L, Monocytes (%) (Auto ) 4.3, Eosinophils (%) (Auto) 3.4H, Basophils (%) (Auto) 0.8, Sodium Level 134L , Chloride Level 94L, Carbon Dioxide Level 23, Anion Gap 15, Blood Urea Nitrogen 48H, Creatinine 1.8H, Estimat Glomerular Filtration Rate 28.3, Glucose Level 150H, Calcium Level 9.5, Total Bilirubin 0.6, Aspartate Amino Transf (AST/ SGOT) 22, Alanine Aminotransferase (ALT/SGPT) 37, Alkaline Phosphatase 201H, Total Protein 9.1H, Albumin 3.3L, Globulin 5.8, Albumin/Globulin Ratio 0.6L Current Medications Medications (Trade) Dose Ordered Sig/Alex Route PRN Reason Start Time Stop Time Status Last Admin Dose Admin Acetaminophen (Tylenol) 1,000 mg Q6H PRN GT Mild Pain/Temp > 100.5 03/15/19 12:45 04/10/19 16:29 03/17/19 13:24 Acetaminophen/ Hydrocodone Bitart (Sumner 5/325) 1 tab Q4H PRN GT Moderate Pain (Pain Scale 4-6) 03/15/19 12:45 03/20/19 22:59 Albuterol Sulfate (Proventil) 2.5 mg Q4HRT HHN 03/16/19 19:00 03/21/19 14:59 03/18/19 07:19 Artificial Tears (Lacri-Lube) 1 applic Q4HR RIGHT EYE 03/15/19 13:00 04/14/19 12:59 03/18/19 05:10 Carvedilol (Coreg) 12.5 mg EVERY 12 HOURS GT 03/11/19 21:00 04/10/19 20:59 03/16/19 09:21 Chlorhexidine Gluconate (Rubina-Hex 2%) 1 applic DAILY@1999 TOPIC 03/12/19 20:00 04/11/19 19:59 03/17/19 20:34 Dextrose (Dextrose 50%) 25 ml Q30M PRN IV Hypoglycemia 03/11/19 17:15 04/10/19 17:14 Dextrose (Dextrose 50%) 50 ml Q30M PRN IV Hypoglycemia 03/11/19 17:15 04/10/19 17:14 Docusate Sodium (Colace) 100 mg TWICE A DAY GT 03/17/19 18:00 04/16/19 17:59 03/17/19 17:30 Epoetin Amadou (Epoetin Amadou(ESRD on dialysis)) 10,000 unit ONCE A WEEK SUBQ 03/19/19 21:00 04/18/19 20:59 Heparin Sodium (Porcine) (Heparin Sod 1000 units/ml 10ml) 2,000 unit ONCE PRN IV dialysis 03/18/19 09:00 03/18/19 23:59 Insulin Aspart (NovoLOG) EVERY 6 HOURS SUBQ 03/11/19 18:00 04/10/19 17:59 03/18/19 05:14 Insulin Detemir (Levemir) 15 units BEDTIME SUBQ 03/15/19 21:00 04/14/19 20:59 03/17/19 20:44 Ipratropium [place] (Atrovent) 500 mcg Q4HRT HHN 03/16/19 19:00 03/21/19 14:59 03/18/19 07:19 Levothyroxine Sodium (Synthroid) 200 mcg QHS GT 03/11/19 21:00 04/10/19 20:59 03/17/19 20:35 Lorazepam (Ativan) 0.5 mg Q6H PRN GT For Anxiety 03/11/19 16:00 03/18/19 15:59 03/14/19 01:43 Metoclopramide HCl (Reglan) 10 mg Q8H PRN IVP Nausea & Vomiting 03/17/19 09:15 04/16/19 09:14 Morphine Sulfate (Morphine Sulfate) 2 mg Q3H PRN IVP severe pain 03/16/19 16:45 03/23/19 16:29 Moxifloxacin HCl (Vigamox) 1 drop Q12HR RIGHT EYE 03/16/19 21:00 03/23/19 20:59 03/17/19 20:37 Multivitamins (Multivitamins) 1 tab DAILY GT 03/12/19 09:00 04/11/19 08:59 03/17/19 09:02 Patient Own Medication (Patient's Own Med) 1 ea DAILYPRN PRN RECTAL constipation 03/11/19 21:15 04/10/19 21:14 03/17/19 13:01 Patient Own Medication (Patient's Own Med) 2 ea Q4HR OPHTHALM 03/17/19 13:00 04/16/19 12:59 03/18/19 05:09 Polyethylene Glycol (Miralax) 17 gm BEDTIME ORAL 03/17/19 21:00 04/16/19 20:59 03/17/19 20:37 Potassium Chloride 100 ml @ 100 mls/hr Q1H IVPB 03/18/19 08:00 03/18/19 13:59 Sodium Chloride 600 ml @ 100 mls/hr Q6H IV 03/18/19 07:30 03/18/19 13:29 Sodium Chloride (Sodium Chloride Dey-Nicolas 3%) 4 ml Q4HRT INH 03/17/19 07:00 04/16/19 06:59 03/18/19 07:37 Vitamin B Complex/ Vit C/Folic Acid (Nephrovite) 1 tab DAILY GT 03/12/19 09:00 04/11/19 08:59 03/17/19 09:03 Maykel Evans MD Mar 18, 2019 08:20
--- NOTE | 2019-03-18 08:53 | General Progress Note ---
Assessment/Plan Problem List: (1) Tracheostomy malfunction ICD Codes: J95.03 - Malfunction of tracheostomy stoma SNOMED: 88573637 (2) Acute renal failure ICD Codes: N17.9 - Acute kidney failure, unspecified SNOMED: 20077355 (3) Pericardial effusion ICD Codes: I31.3 - Pericardial effusion (noninflammatory) SNOMED: 967526488 (4) Sepsis ICD Codes: A41.9 - Sepsis, unspecified organism SNOMED: 66217335 (5) Pneumonia ICD Codes: J18.9 - Pneumonia, unspecified organism SNOMED: 871701763 (6) Tracheostomy malfunction ICD Codes: J95.03 - Malfunction of tracheostomy stoma SNOMED: 04134803 (7) Hypotension ICD Codes: I95.9 - Hypotension, unspecified SNOMED: 05183741 (8) Fecal impaction ICD Codes: K56.41 - Fecal impaction SNOMED: 85626699 Status: stable Assessment/Plan: j tube feeds monitor residuals g tube to LIS replace k iv reglan clamp g port after giving meds bowel regime monitor renal fxn/labs skin care vent support resp care monitor secretions Subjective ROS Limited/Unobtainable: No Constitutional: Reports: malaise, weakness HEENT: Reports: no symptoms Cardiovascular: Reports: no symptoms Respiratory: Reports: cough, sputum Gastrointestinal/Abdominal: Reports: difficulty swallowing Genitourinary: Reports: no symptoms Neurologic/Psychiatric: Reports: pre-existing deficit Endocrine: Reports: no symptoms Hematologic/Lymphatic: Reports: anemia Allergies: Coded Allergies: OLANZAPINE (Verified Allergy, Severe, RESP FAILURE, 11/25/13) VANCOMYCIN (Verified Allergy, Severe, 11/25/13) PIPERACILLIN (Verified Allergy, Intermediate, HIVES, 11/25/13) TAZOBACTAM (Verified Allergy, Intermediate, HIVES, 11/25/13) All Systems: reviewed and negative except above Subjective no events. tolerating feeds. less output from gt port. no meds in residual. sputum with gnr. low k noted Objective Last 24 Hour Vital Signs Date Time Temp Pulse Resp B/P (MAP) Pulse Ox O2 Delivery O2 Flow Rate FiO2 03/18/19 08:46 94 14 35 03/18/19 07:17 93 16 98 Mechanical Ventilator 35 93 17 35 03/18/19 05:06 87 17 35 03/18/19 04:10 97.9 88 14 92/59 (70) 99 03/18/19 04:00 88 03/18/19 04:00 35 03/18/19 04:00 Mechanical Ventilator 03/18/19 02:58 91 18 99 Mechanical Ventilator 35 90 16 35 03/18/19 01:15 89 16 35 03/18/19 00:00 35 03/18/19 00:00 98.0 93 14 98/63 (75) 99 03/18/19 00:00 Mechanical Ventilator 03/18/19 00:00 93 03/17/19 22:56 95 17 98 Mechanical Ventilator 35 96 17 35 03/17/19 20:35 85 96/52 03/17/19 20:34 86 17 35 03/17/19 20:00 97.3 85 14 93/54 (67) 99 03/17/19 20:00 Mechanical Ventilator 03/17/19 20:00 35 03/17/19 19:02 88 03/17/19 18:53 89 18 99 Mechanical Ventilator 35 89 18 35 03/17/19 17:15 92 17 35 03/17/19 16:00 35 03/17/19 16:00 92 03/17/19 16:00 Mechanical Ventilator 03/17/19 15:50 100.2 89 14 105/67 (80) 98 03/17/19 14:54 93 17 99 Mechanical Ventilator 35 94 18 35 03/17/19 13:54 100.2 03/17/19 13:48 95 20 35 03/17/19 12:00 35 03/17/19 12:00 97.0 91 14 127/62 (83) 98 03/17/19 12:00 90 03/17/19 12:00 Mechanical Ventilator 03/17/19 11:02 96 20 99 Mechanical Ventilator 35 96 16 35 03/17/19 09:19 98 15 35 Intake and Output 03/17/19 03/18/19 19:00 07:00 Intake Total 400 ml Output Total 600 ml Balance -200 ml Intake Free Water 120 ml Tube Feeding 280 ml Other 600 ml Laboratory Tests 03/17/19 16:20: Potassium Level 3.6 03/18/19 03:30: Potassium Level 2.7*L, White Blood Count 12.2H, Red Blood Count 4.35, Hemoglobin 13.7, Hematocrit 40.8, Mean Corpuscular Volume 94, Mean Corpuscular Hemoglobin 31.6H, Mean Corpuscular Hemoglobin Concent 33.6, Red Cell Distribution Width 16.2H, Platelet Count 346, Mean Platelet Volume 7.3, Neutrophils (%) (Auto) 79.0H, Lymphocytes (%) (Auto) 12.4L, Monocytes (%) (Auto ) 4.3, Eosinophils (%) (Auto) 3.4H, Basophils (%) (Auto) 0.8, Sodium Level 134L , Chloride Level 94L, Carbon Dioxide Level 23, Anion Gap 15, Blood Urea Nitrogen 48H, Creatinine 1.8H, Estimat Glomerular Filtration Rate 28.3, Glucose Level 150H, Calcium Level 9.5, Total Bilirubin 0.6, Aspartate Amino Transf (AST/ SGOT) 22, Alanine Aminotransferase (ALT/SGPT) 37, Alkaline Phosphatase 201H, Total Protein 9.1H, Albumin 3.3L, Globulin 5.8, Albumin/Globulin Ratio 0.6L Height (Feet): 5 Height (Inches): 4.00 Weight (Pounds): 156 Objective General Appearance: WD/WN, alert Neck: supple Cardiovascular: regular rhythm Respiratory/Chest: chest wall non-tender, rhonchi - bilaterally Abdomen: normal bowel sounds, non tender, soft, no organomegaly Edema: no edema noted Arm (L), no edema noted Arm (R), no edema noted Leg (L), no edema noted Leg (R), no edema noted Pedal (L), no edema noted Pedal (R), no edema noted Generalized Neurologic: disoriented, unresponsive, aphasia Pito Jones MD Mar 18, 2019 08:53
[2019-03-18] MEDS: Docusate 100mg/10ml Liq GT SCH ×2 (08:59→18:00)
[2019-03-18] MEDS: Nephrovite tab (Rena-Vite) GT SCH (08:59)
[2019-03-18] MEDS: Carvedilol 12.5mg tab GT SCH ×2 (09:00→20:52)
[2019-03-18] MEDS ORDERED: Heparin Sod 1000 units/ml 10ml IV PRN (09:00)
[2019-03-18] MEDS: Vigamox Opth Soln 3ml RIGHT EYE SCH ×2 (09:03→21:05)
[2019-03-18] MEDS: Acetaminophen 650mg/20.3ml GT PRN (09:48)
[2019-03-18] MEDS ORDERED: NS 275ml ONE (09:53)
[2019-03-18] MEDS ORDERED: Tubing IV Secondary IV ONE (09:53)
--- NOTE | 2019-03-18 10:08 | NUR ---
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 2) Swallowing difficulty R/T respiratory status as evidenced by pt vent dep via trachs, s/p GJ conversion, on Jtube feedings. 3) Altered nutrition related lab values R/T renal dysfunction, electrolyte imbalance, diabetes as evidenced by critically low K (2.7), elev creat (1.8), elev POC glu ([phone]). CURRENT TF:Nepro @ 40ml/hr x 22 hrs -> Bolus feeding of 8oz Nepro @ B & L & D + 4oz Nepro @ HS ENTERAL NUTRITION RECOMMENDATIONS: Glucerna 1.5 @ 47ml/hr x 22 hrs to provide 1034ml, 1551kcal, 85g pro, 785ml free water * Consider TF change to Glucerna 1.5 -> TF clogging on Nepro per RN, K consistently low, Phos wnl, DM w/ elev BGs * Initiate Glucerna 1.5 @ 37ml/hr x 6hrs, advance as tolerated to goal. * Hold 1 hr before and after Synthroid med * HOB >45 degrees/Free H20 flushes per MD IF PT IS TO REMAIN ON NEPRO, continue bolus feeding of 8oz Nepro @ B & L & D + 4oz Nepro @ HS to provide 829ml, 1487kcal, 67g prot ADDITIONAL RECOMMENDATIONS: 1) RECALIBRATED bedscale wt for accurate CBW 2) Monitor lytes, replete as needed (K critically low) 3) Monitor TF tolerance: admitted w/ c/o elev TF residuals -> s/p GJ conversion, no residual reported at this time 4) W/ TF change to Glucerna 1.5, monitor lytes closely, need to switch back to Nepro
--- NOTE | 2019-03-18 11:00 | NUR ---
NURSE NOTES: Pt with BM,manual dis impaction done by caregiver,pt had a large soft BM,kept dry and clean.
[2019-03-18] MEDS: BISACODYL 10 MG RECTAL PRN (11:11)
[2019-03-18] MEDS ORDERED: Cefepime HCl 2 GM in D5W 55 ML IVPB SCH (11:15)
[2019-03-18 12:00] VITALS: BP 147/79
--- NOTE | 2019-03-18 12:13 | NUR ---
DOUBLE NEEDLE STITCHERDISHTANK OPERATOR SI: RESP FAILURE TRACH/VENT DEPENDENT,FECAL IMPACTION T. 97.9 HR 87 RR 14 B/P 92/59 WBC 12.2 NA 134 K 2.7 BUN 48 CR 1.8 ALK PHOS 201 IS: CEFEPIME IV KCL IV IVF NS @ 100ML/HR VIGAMOX GT COREG PO STEP DOWN STATUS
--- NOTE | 2019-03-18 12:45 | NUR ---
NURSE NOTES:WOUND CARE NOTES: Complete assessment of pt's skin completed with nurse in charge on unit(Marivel Gonzalez) Pt has trach and noted to have washcloth intertwined with trach collar. Pt's personal counselor at bedside and declined for washcloth to be removed. Pt's caregiver was educated coarseness of washcloth is risk to pt's skin and may cause skin breakdown. ammonium sulfate operator responded washcloth has been in use for over 10yrs and pt has never had skin breakdown. Skin assessed under and around trach and neck and no erythema or evidence of skin breakdown. Both elbows,both hips ,skin folds of breasts, abd and bilat groin and perineum without erythema or evidence of any skin breakdown. Back buttocks and both heels assessed and is pink without any evidence of skin breakdown. ammonium sulfate operator verbalized that previous day pt had red area on L buttocks /ischial region. Erythema has now resolved and this was indicated to personal counselor whom was also invited to assess pt's skin to confirm no redness noted. Moisture Barrier paste applied to perineum and buttocks. Optifoam drsgs applied as prevention to both hips ,Sacral area and both heels. Pt was positioned on her side with pillows and both heels floated off mattress. Pt is on an APM/ARCELIA mattress overlay due to pt identified as high risk for skin breakdown ;Francesco score of 9.Pt is being repositioned as per protocols and per pt's tolerance. Tx.Plan: Apply Moisture Barrier Paste to skin folds and buttocks with each perineal care. Cover sacral area with Optifoam drsg . Change every 3 days and prn. Apply Cavilon Skin Barrier to both hips. Cover each hip with Optifoam drsg. Change every 7 days and prn. Apply Cavilon Skin Barrier to both heels. Cover each heel with Optifoam drsg. Change every 7 days and prn. Reposition at least every 2hours or as tolerated. Off-load heels with pillow.
--- NOTE | 2019-03-18 15:00 | NUR ---
NURSE NOTES: Dr Garcia at bedside,informed re recommendation from order expediter Jeannette,to switch feeding fr Nepro to Glucerna 1.5 at 47 ml/hr x22 hrs.Dr Thakur agreed. Caregiver informed re new order.
--- NOTE | 2019-03-18 15:26 | Nephrology Progress Note ---
Assessment/Plan Assessment 1) VDRF 2) ESRD 3) DM 4) Gastroparesis 5) Probable PNA, 6) Doubt CHF Plan: HD today Awaiting serological w/u Replte K IV Cefepim was started Subjective Subjective She is having some struggled breathing, still GT to suction and a lot coming out , WBC is 12 K, no fever, BG in the 120's, tolerating TF per JT, Sputum is growing Pseudomonas Objective Objective Last 24 Hour Vital Signs Date Time Temp Pulse Resp B/P (MAP) Pulse Ox O2 Delivery O2 Flow Rate FiO2 03/18/19 13:30 114 17 35 03/18/19 12:06 35 03/18/19 12:03 Mechanical Ventilator 03/18/19 12:00 106 03/18/19 12:00 97.8 15 147/79 (101) 99 03/18/19 10:50 103 19 99 Mechanical Ventilator 35 103 19 35 03/18/19 10:01 112 14 99 Mechanical Ventilator 35 03/18/19 09:00 98 105/74 03/18/19 08:46 94 14 35 03/18/19 08:00 35 03/18/19 08:00 93 03/18/19 08:00 97.5 97 14 105/74 (84) 99 03/18/19 08:00 Mechanical Ventilator 03/18/19 07:17 93 16 98 Mechanical Ventilator 35 93 17 35 03/18/19 05:06 87 17 35 03/18/19 04:10 97.9 88 14 92/59 (70) 99 03/18/19 04:00 88 03/18/19 04:00 35 03/18/19 04:00 Mechanical Ventilator 03/18/19 02:58 91 18 99 Mechanical Ventilator 35 90 16 35 03/18/19 01:15 89 16 35 03/18/19 00:00 35 03/18/19 00:00 98.0 93 14 98/63 (75) 99 03/18/19 00:00 Mechanical Ventilator 03/18/19 00:00 93 03/17/19 22:56 95 17 98 Mechanical Ventilator 35 96 17 35 03/17/19 20:35 85 96/52 03/17/19 20:34 86 17 35 03/17/19 20:00 97.3 85 14 93/54 (67) 99 03/17/19 20:00 Mechanical Ventilator 03/17/19 20:00 35 03/17/19 19:02 88 03/17/19 18:53 89 18 99 Mechanical Ventilator 35 89 18 35 03/17/19 17:15 92 17 35 03/17/19 16:00 35 03/17/19 16:00 92 03/17/19 16:00 Mechanical Ventilator 03/17/19 15:50 100.2 89 14 105/67 (80) 98 Intake and Output 03/17/19 03/18/19 18:59 06:59 Intake Total 440 ml Output Total 600 ml Balance -160 ml Intake Free Water 120 ml Tube Feeding 320 ml Other 600 ml Laboratory Tests 03/17/19 16:20: Potassium Level 3.6 03/18/19 03:30: Potassium Level 2.7*L, White Blood Count 12.2H, Red Blood Count 4.35, Hemoglobin 13.7, Hematocrit 40.8, Mean Corpuscular Volume 94, Mean Corpuscular Hemoglobin 31.6H, Mean Corpuscular Hemoglobin Concent 33.6, Red Cell Distribution Width 16.2H, Platelet Count 346, Mean Platelet Volume 7.3, Neutrophils (%) (Auto) 79.0H, Lymphocytes (%) (Auto) 12.4L, Monocytes (%) (Auto ) 4.3, Eosinophils (%) (Auto) 3.4H, Basophils (%) (Auto) 0.8, Sodium Level 134L , Chloride Level 94L, Carbon Dioxide Level 23, Anion Gap 15, Blood Urea Nitrogen 48H, Creatinine 1.8H, Estimat Glomerular Filtration Rate 28.3, Glucose Level 150H, Calcium Level 9.5, Total Bilirubin 0.6, Aspartate Amino Transf (AST/ SGOT) 22, Alanine Aminotransferase (ALT/SGPT) 37, Alkaline Phosphatase 201H, Total Protein 9.1H, Albumin 3.3L, Globulin 5.8, Albumin/Globulin Ratio 0.6L Height (Feet): 5 Height (Inches): 4.00 Weight (Pounds): 156 General Appearance: WD/WN EENT: PERRL/EOMI Neck: non-tender, normal alignment Cardiovascular: normal rate, regular rhythm Respiratory/Chest: rhonchi - bilaterally Abdomen: decreased bowel sounds Neurologic: other - Quadraplegic Ede Thakur MD Mar 18, 2019 15:26
[2019-03-18] MEDS: Cefepime 1gm/D5W 55ml IVPB SCH ×2 (15:50)
[2019-03-18 16:00] VITALS: BP 100/65
--- NOTE | 2019-03-18 16:00 | Consultation ---
DATE OF CONSULTATION: 03/18/2019 INFECTIOUS DISEASES CONSULTATION CONSULTING PHYSICIAN: Fabio Brown M.D. REFERRING PHYSICIAN: Maykel Evans M.D. REASON FOR CONSULTATION: Pneumonia. HISTORY OF PRESENTING ILLNESS: This is a 64-year-old lady with history of anoxic encephalopathy, respiratory failure, diabetes, hypertension, who was brought in by family members for constipation. She was found to have a pneumonia. An Infectious Diseases consultation has been obtained for antibiotics. PAST MEDICAL HISTORY: 1. History of anoxic encephalopathy. 2. Respiratory failure. 3. Diabetes. 4. Hypertension. 5. Status post G-tube placement. SOCIAL HISTORY: She does not smoke, drink, or use drugs. FAMILY HISTORY: Unknown. REVIEW OF SYSTEMS: Unable to obtain currently. MEDICATIONS: As an inpatient, the patient is on heparin, MiraLAX, docusate, Reglan, Moxifloxacin eye drops, albuterol, ipratropium bromide, morphine, insulin, Artificial Tears, [place], Tylenol, chlorhexidine gluconate, multivitamin, vitamin B, C, folic acid, carvedilol, levothyroxine, insulin, and Ativan. ALLERGIES: 1. Piperacillin and tazobactam. 2. Vancomycin. 3. Olanzapine. PHYSICAL EXAMINATION: VITAL SIGNS: T-max of 100.2, pulse 103, respiratory rate 19, blood pressure 105/74, and O2 saturation of 99%. HEENT: Pupils equally reactive to light and accommodation. Mouth appears clean. NECK: Supple. No adenopathy. No JVD. Tracheostomy site is clean. CARDIOVASCULAR: Regular rate and rhythm. No murmurs. LUNGS: Clear to auscultation bilaterally. No crackles. No wheezes. ABDOMEN: Soft and nontender. G-tube site appears clean. EXTREMITIES: No cyanosis, no clubbing, no edema. LABORATORY AND DIAGNOSTIC DATA: White count of 12.2, hemoglobin 13.7, hematocrit 40.8, MCV 94, platelet count of 346. Sodium 134, potassium 2.7, chloride 94, bicarb 23, BUN 48, creatinine 1.8, glucose 150, calcium 9.5. Total bilirubin 0.6. AST 22, ALT 37, and alkaline phosphatase 201. Total protein 9.1, albumin 3.3. is pending. is pending. Sputum culture showing gram-negative rods and pseudomonas. Pseudomonas is susceptible to cefepime. Chest x-ray showing pulmonary interstitial prominence. CT abdomen and pelvis showing atelectasis and chronic liver disease noted. ASSESSMENT: This is a 64-year-old lady with history of respiratory failure, status post tracheostomy, diabetes, hypertension, anoxic encephalopathy, who comes in and was found to have. 1. Pseudomonas and gram-negative pneumonia. 2. Leukocytosis. 3. Respiratory failure. 4. Diabetes. 5. Hypertension. PLAN: 1. We will start the patient on IV cefepime. 2. We will follow up cultures and adjust antibiotics accordingly. I would like to thank, Dr. Evans, for this consultation. Fabio Brown M.D. DR: SHELDON JOB#: [id number] CC: Maykel Evans M.D.; Fax#: [phone]
[2019-03-18] MEDS: Morphine Sulfate 2mg/ml Inj(IV/IM USE ONLY) IVP PRN (16:01)
--- NOTE | 2019-03-18 18:00 | NUR ---
NURSE NOTES: FAmily member ,pt sister at bedside,aware of pt's having x4 BM,refused colace to bed given.
--- NOTE | 2019-03-18 19:30 | NUR ---
NURSE NOTES: Report recieved from Laura Panchal RN ESTEBAN. Pt remains stable.
--- NOTE | 2019-03-18 19:35 | NUR ---
NURSE NOTES: Pt repositioned Q2 hrs ,Oral secretions suctioned PRN,Oral care done.
--- NOTE | 2019-03-18 19:40 | NUR ---
HAND-OFF: Report given to Constantin Verdin RN,HD RN at bedside,with ongoing HD.
[2019-03-18 20:00] VITALS: BP 110/79
[2019-03-18] MEDS: Dyna-Hex 2% Top Sol 2oz TOPIC SCH (20:50)
[2019-03-18] MEDS: Miralax 17gm pkt ORAL SCH (20:54)
[2019-03-18] MEDS: Levemir Flexpen SUBQ SCH (21:23)
--- NOTE | 2019-03-18 21:37 | NUR ---
NURSE NOTES: Pharmacy [facility] called, stated pharmacy is out of visicoral suppositories. Additionally, (per family request) the family wants to bring their own Visicoral Suppositories. relayed message to pt hiv/aids care nurse Anat.
--- NOTE | 2019-03-18 21:39 | General Progress Note ---
Assessment/Plan Status: stable Assessment/Plan: Assessment - Resolved stool impaction - G TF intolerance - s/p G--> GJ conversion - Resp failure / trach - renal failure - contracted / vegetative state - high decub risk Recommendations - TF via J port - G port to gravity - Can give elixer meds via J port - minimize G port meds - Elevate HOB - decub prevention Subjective Allergies: Coded Allergies: OLANZAPINE (Verified Allergy, Severe, RESP FAILURE, 11/25/13) VANCOMYCIN (Verified Allergy, Severe, 11/25/13) PIPERACILLIN (Verified Allergy, Intermediate, HIVES, 11/25/13) TAZOBACTAM (Verified Allergy, Intermediate, HIVES, 11/25/13) Subjective above noted d/w medical staff services manager Tolerating TF via J port Objective Last 24 Hour Vital Signs Date Time Temp Pulse Resp B/P (MAP) Pulse Ox O2 Delivery O2 Flow Rate FiO2 03/18/19 21:27 99 17 35 03/18/19 20:52 104 110/64 03/18/19 20:04 104 18 99 Mechanical Ventilator 35 106 16 35 03/18/19 17:00 99.0 03/18/19 16:31 97 12 35 03/18/19 16:00 Mechanical Ventilator 03/18/19 16:00 35 03/18/19 16:00 98 16 100/65 (77) 100 03/18/19 15:45 110 03/18/19 15:23 109 15 97 Mechanical Ventilator 35 108 15 35 03/18/19 13:30 114 17 35 03/18/19 12:06 35 03/18/19 12:03 Mechanical Ventilator 03/18/19 12:00 106 03/18/19 12:00 97.8 15 147/79 (101) 99 03/18/19 10:50 103 19 99 Mechanical Ventilator 35 103 19 35 03/18/19 10:01 112 14 99 Mechanical Ventilator 35 03/18/19 09:00 98 105/74 03/18/19 08:46 94 14 35 03/18/19 08:00 35 03/18/19 08:00 93 03/18/19 08:00 97.5 97 14 105/74 (84) 99 03/18/19 08:00 Mechanical Ventilator 03/18/19 07:17 93 16 98 Mechanical Ventilator 35 93 17 35 03/18/19 05:06 87 17 35 03/18/19 04:10 97.9 88 14 92/59 (70) 99 03/18/19 04:00 88 03/18/19 04:00 35 03/18/19 04:00 Mechanical Ventilator 03/18/19 02:58 91 18 99 Mechanical Ventilator 35 90 16 35 03/18/19 01:15 89 16 35 03/18/19 00:00 35 03/18/19 00:00 98.0 93 14 98/63 (75) 99 03/18/19 00:00 Mechanical Ventilator 03/18/19 00:00 93 03/17/19 22:56 95 17 98 Mechanical Ventilator 35 96 17 35 Intake and Output 03/17/19 03/18/19 18:59 06:59 Intake Total 440 ml Output Total 600 ml 250 ml Balance -160 ml -250 ml Intake Free Water 120 ml Tube Feeding 320 ml Other 600 ml 250 ml Laboratory Tests 03/18/19 03:30: White Blood Count 12.2H, Red Blood Count 4.35, Hemoglobin 13.7, Hematocrit 40.8 , Mean Corpuscular Volume 94, Mean Corpuscular Hemoglobin 31.6H, Mean Corpuscular Hemoglobin Concent 33.6, Red Cell Distribution Width 16.2H, Platelet Count 346, Mean Platelet Volume 7.3, Neutrophils (%) (Auto) 79.0H, Lymphocytes (%) (Auto) 12.4L, Monocytes (%) (Auto) 4.3, Eosinophils (%) (Auto) 3.4H, Basophils (%) (Auto) 0.8, Sodium Level 134L, Potassium Level 2.7*L, Chloride Level 94L, Carbon Dioxide Level 23, Anion Gap 15, Blood Urea Nitrogen 48H, Creatinine 1.8H, Estimat Glomerular Filtration Rate 28.3, Glucose Level 150H, Calcium Level 9.5, Total Bilirubin 0.6, Aspartate Amino Transf (AST/SGOT) 22, Alanine Aminotransferase (ALT/SGPT) 37, Alkaline Phosphatase 201H, Total Protein 9.1H, Albumin 3.3L, Globulin 5.8, Albumin/Globulin Ratio 0.6L, Hepatitis B Surface Antigen [Pending] Height (Feet): 5 Height (Inches): 4.00 Weight (Pounds): 156 Objective Debilitated nonverbal woman unresponsive, comatose, eyes closed NCAT (+) trach coarse BS RR abd soft , GJT in good position (++) contracted extremities Neuro Coma, contracted Emily Hu MD Mar 18, 2019 21:39
[2019-03-19] VITALS: BP 93/78
[2019-03-19] MEDS: Lacri-Lube Opth Oint 3.5gm RIGHT EYE SCH ×6 (00:32→21:22)
[2019-03-19] MEDS: SYSTANE ULTRA OPHTHALM SCH ×6 (00:32→21:22)
[2019-03-19] MEDS: Morphine Sulfate 2mg/ml Inj(IV/IM USE ONLY) IVP PRN (01:34)
--- NOTE | 2019-03-19 01:38 | NUR ---
NURSE NOTES: Wayne Lucio (pt family member) request and client care specialist Anat: They stated pt appears to be in pain and are requesting 2MG IV morphine. They are aware of pt low BP and the effects of Morphine lowering the BP.
[2019-03-19] MEDS: Sodium Chloride 3% 4ml Nebul Soln INH SCH ×4 (03:00→23:00)
[2019-03-19] MEDS: Albuterol ud Inhalation HHN SCH ×6 (03:14→23:42)
[2019-03-19] MEDS: Ipratropium 0.02% Inh Soln 2.5ml UD HHN SCH ×6 (03:14→23:42)
[2019-03-19 04:00] VITALS: BP 105/61
[2019-03-19] MEDS: NovoLOG Insulin Flexpen SUBQ SCH ×3 (05:53→17:57)
--- NOTE | 2019-03-19 07:39 | NUR ---
NURSE NOTES: Received report from PHIL Killian. Observed patient in bed, nonverbal; on trach-vent with previous settings. No respiratory distress noted at this time. Jtube intact and patent with feeding infusing at prescribed rate. HOB elevated. GTube connected to intermittent wall suction. HD catheter on left subclavian noted with intact and dry dressing. Right hand 22g intact and patent. No s/s pain/discomfort at this time. Bed locked, alarmed, and in lowest position, side rails up x2, and call light within reach. Caregiver Kaelyn at bedside; instructed to call for assistance, verbalized understanding. Will continue with plan of care.
--- NOTE | 2019-03-19 07:58 | NUR ---
HAND-OFF: Report given to Jennifer KEANE RN. Pt remains stable.
[2019-03-19] MEDS: Carvedilol 12.5mg tab GT SCH ×2 (08:37→21:00)
[2019-03-19] MEDS: Docusate 100mg/10ml Liq GT SCH ×2 (08:37→17:53)
[2019-03-19] MEDS: Nephrovite tab (Rena-Vite) GT SCH (08:37)
[2019-03-19] MEDS: Vigamox Opth Soln 3ml RIGHT EYE SCH ×2 (08:46→21:22)
[2019-03-19 09:00] VITALS: BP 95/60
--- NOTE | 2019-03-19 09:24 | General Progress Note ---
Assessment/Plan Problem List: (1) Tracheostomy malfunction ICD Codes: J95.03 - Malfunction of tracheostomy stoma SNOMED: 75686756 (2) Acute renal failure ICD Codes: N17.9 - Acute kidney failure, unspecified SNOMED: 96852810 (3) Pericardial effusion ICD Codes: I31.3 - Pericardial effusion (noninflammatory) SNOMED: 181432517 (4) Sepsis ICD Codes: A41.9 - Sepsis, unspecified organism SNOMED: 45795273 (5) Pneumonia ICD Codes: J18.9 - Pneumonia, unspecified organism SNOMED: 955586158 (6) Tracheostomy malfunction ICD Codes: J95.03 - Malfunction of tracheostomy stoma SNOMED: 04260942 (7) Hypotension ICD Codes: I95.9 - Hypotension, unspecified SNOMED: 15753947 (8) Fecal impaction ICD Codes: K56.41 - Fecal impaction SNOMED: 57539987 Status: stable Assessment/Plan: j tube feeds monitor residuals g tube to LIS replace k abx clamp g port after giving meds bowel regime monitor renal fxn/labs skin care vent support resp care monitor secretions Subjective ROS Limited/Unobtainable: Yes Constitutional: Reports: malaise, weakness HEENT: Reports: no symptoms Cardiovascular: Reports: no symptoms Respiratory: Reports: shortness of breath, sputum Gastrointestinal/Abdominal: Reports: difficulty swallowing Genitourinary: Reports: no symptoms Neurologic/Psychiatric: Reports: pre-existing deficit Endocrine: Reports: no symptoms Hematologic/Lymphatic: Reports: anemia Allergies: Coded Allergies: OLANZAPINE (Verified Allergy, Severe, RESP FAILURE, 11/25/13) VANCOMYCIN (Verified Allergy, Severe, 11/25/13) PIPERACILLIN (Verified Allergy, Intermediate, HIVES, 11/25/13) TAZOBACTAM (Verified Allergy, Intermediate, HIVES, 11/25/13) All Systems: reviewed and negative except above Subjective no events. tolerating feeds. less output from gt port- dark/green fluid. no meds in residual. sputum with gnr. on abx. Objective Last 24 Hour Vital Signs Date Time Temp Pulse Resp B/P (MAP) Pulse Ox O2 Delivery O2 Flow Rate FiO2 03/19/19 09:00 98.6 97 19 95/60 (72) 98 03/19/19 08:37 96 95/60 03/19/19 08:00 Mechanical Ventilator 03/19/19 08:00 35 03/19/19 07:29 97 12 98 Mechanical Ventilator 35 97 12 35 03/19/19 04:32 95 16 35 03/19/19 04:00 90 03/19/19 04:00 35 03/19/19 04:00 Mechanical Ventilator 03/19/19 04:00 98.6 95 15 105/61 (76) 100 03/19/19 03:14 92 16 98 Mechanical Ventilator 35 93 17 35 03/19/19 01:32 99 15 35 03/19/19 00:00 99.2 106 16 93/78 (83) 99 03/19/19 00:00 35 03/19/19 00:00 Mechanical Ventilator 03/19/19 00:00 111 03/18/19 23:48 111 17 93 Mechanical Ventilator 35 110 17 35 03/18/19 21:27 99 17 35 03/18/19 20:52 104 110/64 03/18/19 20:04 104 18 99 Mechanical Ventilator 35 106 16 35 03/18/19 20:00 35 03/18/19 20:00 105 03/18/19 20:00 98.2 104 17 110/79 (89) 100 03/18/19 20:00 Mechanical Ventilator 03/18/19 17:00 99.0 03/18/19 16:31 97 12 35 03/18/19 16:00 Mechanical Ventilator 03/18/19 16:00 35 03/18/19 16:00 98 16 100/65 (77) 100 03/18/19 15:45 110 03/18/19 15:23 109 15 97 Mechanical Ventilator 35 108 15 35 03/18/19 13:30 114 17 35 03/18/19 12:06 35 03/18/19 12:03 Mechanical Ventilator 03/18/19 12:00 106 03/18/19 12:00 97.8 15 147/79 (101) 99 03/18/19 10:50 103 19 99 Mechanical Ventilator 35 103 19 35 03/18/19 10:01 112 14 99 Mechanical Ventilator 35 Intake and Output 03/18/19 03/19/19 19:00 07:00 Intake Total 856 ml 436 ml Output Total 454 ml 1300 ml Balance 402 ml -864 ml Intake Free Water 60 ml 60 ml IV Total 55 ml Tube Feeding 621 ml 376 ml Other 120 ml Output Stool Total 4 ml Gastric Drainage Total 450 ml 300 ml Hemodialysis UF 1000 ml # Bowel Movements 3 Height (Feet): 5 Height (Inches): 4.00 Weight (Pounds): 154 Objective General Appearance: WD/WN, alert Neck: supple Cardiovascular: regular rhythm Respiratory/Chest: chest wall non-tender, rhonchi - bilaterally Abdomen: normal bowel sounds, non tender, soft, no organomegaly Edema: no edema noted Arm (L), no edema noted Arm (R), no edema noted Leg (L), no edema noted Leg (R), no edema noted Pedal (L), no edema noted Pedal (R), no edema noted Generalized Neurologic: disoriented, unresponsive, aphasia Pito Jones MD Mar 19, 2019 09:24
--- NOTE | 2019-03-19 09:34 | Pulmonology Progress Note ---
Assessment/Plan Assessment/Plan respiratory failure chronic encephalopathy trach CRF GT constipation increase in residual hypertension diabetes s/p GT-->JT conversion intolerance of meds gastroparesis + pseudomonas PLAN ID evaluation noted Cefepime and sensitive vent as is/ on full support feeds as able monitor feeds and residuals gt to suction HD and monitor lytes and monitor fluid status skin care and off load monitor hemodynamics chronic care- monitor bowel movements monitor sugars for change not ready for dc yet impression, plan, and exam edited and reviewed in detail care discussed with RN Subjective ROS Limited/Unobtainable: Yes Allergies: Coded Allergies: OLANZAPINE (Verified Allergy, Severe, RESP FAILURE, 11/25/13) VANCOMYCIN (Verified Allergy, Severe, 11/25/13) PIPERACILLIN (Verified Allergy, Intermediate, HIVES, 11/25/13) TAZOBACTAM (Verified Allergy, Intermediate, HIVES, 11/25/13) Subjective care noted and reviewed with sister noted labs noted elevated wbc and low grade fevers- better on antibiotics on vent/trach tolerating feeds Objective Last 24 Hour Vital Signs Date Time Temp Pulse Resp B/P (MAP) Pulse Ox O2 Delivery O2 Flow Rate FiO2 03/19/19 09:29 98 12 98 Mechanical Ventilator 35 97 12 35 03/19/19 09:00 98.6 97 19 95/60 (72) 98 03/19/19 08:37 96 95/60 03/19/19 08:00 Mechanical Ventilator 03/19/19 08:00 35 03/19/19 07:29 97 12 98 Mechanical Ventilator 35 97 12 35 03/19/19 04:32 95 16 35 03/19/19 04:00 90 03/19/19 04:00 35 03/19/19 04:00 Mechanical Ventilator 03/19/19 04:00 98.6 95 15 105/61 (76) 100 03/19/19 03:14 92 16 98 Mechanical Ventilator 35 93 17 35 03/19/19 01:32 99 15 35 03/19/19 00:00 99.2 106 16 93/78 (83) 99 03/19/19 00:00 35 03/19/19 00:00 Mechanical Ventilator 03/19/19 00:00 111 03/18/19 23:48 111 17 93 Mechanical Ventilator 35 110 17 35 03/18/19 21:27 99 17 35 03/18/19 20:52 104 110/64 03/18/19 20:04 104 18 99 Mechanical Ventilator 35 106 16 35 03/18/19 20:00 35 03/18/19 20:00 105 03/18/19 20:00 98.2 104 17 110/79 (89) 100 03/18/19 20:00 Mechanical Ventilator 03/18/19 17:00 99.0 03/18/19 16:31 97 12 35 03/18/19 16:00 Mechanical Ventilator 03/18/19 16:00 35 03/18/19 16:00 98 16 100/65 (77) 100 03/18/19 15:45 110 03/18/19 15:23 109 15 97 Mechanical Ventilator 35 108 15 35 03/18/19 13:30 114 17 35 03/18/19 12:06 35 03/18/19 12:03 Mechanical Ventilator 03/18/19 12:00 106 03/18/19 12:00 97.8 15 147/79 (101) 99 03/18/19 10:50 103 19 99 Mechanical Ventilator 35 103 19 35 03/18/19 10:01 112 14 99 Mechanical Ventilator 35 Intake and Output 03/18/19 03/19/19 19:00 07:00 Intake Total 856 ml 436 ml Output Total 454 ml 1300 ml Balance 402 ml -864 ml Intake Free Water 60 ml 60 ml IV Total 55 ml Tube Feeding 621 ml 376 ml Other 120 ml Output Stool Total 4 ml Gastric Drainage Total 450 ml 300 ml Hemodialysis UF 1000 ml # Bowel Movements 3 Objective WDWN NAD trach reduced breath sounds bilaterally without rhonchi or wheeze [id number] without MRG NABS nontender no HSM no CCE nonfocal poorly responsive at present skin exam noted gt feeds Microbiology Date/Time Source Procedure Growth Status 03/17/19 16:20 Blood Blood Culture - Preliminary NO GROWTH AFTER 24 HOURS Resulted 03/17/19 16:20 Blood Blood Culture - Preliminary NO GROWTH AFTER 24 HOURS Resulted 03/17/19 20:30 Sputum Gram Stain - Final Resulted 03/17/19 20:30 Sputum Culture - Preliminary Gram Negative Bacillus 1 Resulted Current Medications Medications (Trade) Dose Ordered Sig/Alex Route PRN Reason Start Time Stop Time Status Last Admin Dose Admin Acetaminophen (Tylenol) 1,000 mg Q6H PRN GT Mild Pain/Temp > 100.5 03/15/19 12:45 04/10/19 16:29 03/18/19 09:48 Acetaminophen/ Hydrocodone Bitart (Downey 5/325) 1 tab Q4H PRN GT Moderate Pain (Pain Scale 4-6) 03/15/19 12:45 03/20/19 22:59 Albuterol Sulfate (Proventil) 2.5 mg Q4HRT HHN 03/16/19 19:00 03/21/19 14:59 03/19/19 08:00 Artificial Tears (Lacri-Lube) 1 applic Q4HR RIGHT EYE 03/15/19 13:00 04/14/19 12:59 03/19/19 08:46 Carvedilol (Coreg) 12.5 mg EVERY 12 HOURS GT 03/11/19 21:00 04/10/19 20:59 03/16/19 09:21 Cefepime HCl 1 gm/ Dextrose 55 ml @ 110 mls/hr Q24H IVPB 03/18/19 13:00 03/25/19 12:59 03/18/19 15:50 Chlorhexidine Gluconate (Rubina-Hex 2%) 1 applic DAILY@2000 TOPIC 03/12/19 20:00 04/11/19 19:59 03/18/19 20:50 Dextrose (Dextrose 50%) 25 ml Q30M PRN IV Hypoglycemia 03/11/19 17:15 04/10/19 17:14 Dextrose (Dextrose 50%) 50 ml Q30M PRN IV Hypoglycemia 03/11/19 17:15 04/10/19 17:14 Docusate Sodium (Colace) 100 mg TWICE A DAY GT 03/17/19 18:00 04/16/19 17:59 03/19/19 08:37 Epoetin Amadou (Epoetin Amadou(ESRD on dialysis)) 10,000 unit ONCE A WEEK SUBQ 03/19/19 21:00 04/18/19 20:59 Insulin Aspart (NovoLOG) EVERY 6 HOURS SUBQ 03/11/19 18:00 04/10/19 17:59 03/19/19 05:53 Insulin Detemir (Levemir) 15 units BEDTIME SUBQ 03/15/19 21:00 04/14/19 20:59 03/18/19 21:23 Ipratropium Preston (Atrovent) 500 mcg Q4HRT HHN 03/16/19 19:00 03/21/19 14:59 03/19/19 08:00 Levothyroxine Sodium (Synthroid) 200 mcg QHS GT 03/11/19 21:00 04/10/19 20:59 03/18/19 20:56 Metoclopramide HCl (Reglan) 10 mg Q8H PRN IVP Nausea & Vomiting 03/17/19 09:15 04/16/19 09:14 Morphine Sulfate (Morphine Sulfate) 2 mg Q3H PRN IVP severe pain 03/16/19 16:45 03/23/19 16:29 03/19/19 01:34 Moxifloxacin HCl (Vigamox) 1 drop Q12HR RIGHT EYE 03/16/19 21:00 03/23/19 20:59 03/19/19 08:46 Multivitamins (Multivitamins) 1 tab DAILY GT 03/12/19 09:00 04/11/19 08:59 03/19/19 08:37 Patient Own Medication (Patient's Own Med) 1 ea DAILYPRN PRN RECTAL constipation 03/11/19 21:15 04/10/19 21:14 03/18/19 11:11 Patient Own Medication (Patient's Own Med) 2 ea Q4HR OPHTHALM 03/17/19 13:00 04/16/19 12:59 03/19/19 08:48 Polyethylene Glycol (Miralax) 17 gm BEDTIME ORAL 03/17/19 21:00 04/16/19 20:59 03/17/19 20:37 Sodium Chloride (Sodium Chloride Dey-Nicolas 3%) 4 ml Q4HRT INH 03/17/19 07:00 04/16/19 06:59 03/18/19 11:57 Vitamin B Complex/ Vit C/Folic Acid (Nephrovite) 1 tab DAILY GT 03/12/19 09:00 04/11/19 08:59 03/19/19 08:37 Maykel Evans MD Mar 19, 2019 09:34
[2019-03-19 10:23] LABS: ALANINE AMINOTRANSFERASE 42 U/L (12-78); ALBUMIN 3.4 G/DL (3.4-5.0); ALBUMIN/GLOBULIN RATIO 0.5 (1.0-2.7); ALKALINE PHOSPHATASE 253 U/L (46-116); ANION GAP 15 mmol/L (5-15); ASPARTATE AMINO TRANSFERASE 35 U/L (15-37); BILIRUBIN,TOTAL 0.6 MG/DL (0.2-1.0); BLOOD UREA NITROGEN 32 mg/dL (7-18); CALCIUM 9.8 MG/DL (8.5-10.1); CARBON DIOXIDE 22 MMOL/L (21-32); CHLORIDE 101 MMOL/L (98-107); CREATININE 1.5 MG/DL (0.55-1.30); POTASSIUM 5.3 MMOL/L (3.5-5.1); SODIUM 138 MMOL/L (136-145)
[2019-03-19 12:00] VITALS: BP 101/56
[2019-03-19] MEDS: BISACODYL 10 MG RECTAL PRN (12:15)
--- NOTE | 2019-03-19 13:06 | NUR ---
NURSE NOTES: Bowel regimen started by caregivers at bedside Lilia. Rectal temperature checked per Kaelyn's request, 100.2. Will continue to monitor patient.
[2019-03-19] MEDS: Cefepime 1gm/D5W 55ml IVPB SCH ×2 (13:25)
--- NOTE | 2019-03-19 14:01 | Nephrology Progress Note ---
Assessment/Plan Assessment 1) VDRF 2) ESRD 3) DM 4) Gastroparesis 5) Probable PNA, 6) Doubt CHF Plan: HD tomorrow Subjective Subjective She is on the vent, had HD yesterday with 1.5 L removal, still a lot of gastric secretions coming up Objective Objective Last 24 Hour Vital Signs Date Time Temp Pulse Resp B/P (MAP) Pulse Ox O2 Delivery O2 Flow Rate FiO2 03/19/19 12:49 96 18 35 03/19/19 12:00 100 03/19/19 12:00 98.2 103 21 101/56 (71) 95 03/19/19 12:00 Mechanical Ventilator 03/19/19 12:00 35 03/19/19 10:45 99 18 96 Mechanical Ventilator 35 99 18 35 03/19/19 09:29 98 12 98 Mechanical Ventilator 35 97 12 35 03/19/19 09:00 98.6 97 19 95/60 (72) 98 03/19/19 08:37 96 95/60 03/19/19 08:00 Mechanical Ventilator 03/19/19 08:00 35 03/19/19 07:29 97 12 98 Mechanical Ventilator 35 97 12 35 03/19/19 07:28 99 03/19/19 04:32 95 16 35 03/19/19 04:00 90 03/19/19 04:00 35 03/19/19 04:00 Mechanical Ventilator 03/19/19 04:00 98.6 95 15 105/61 (76) 100 03/19/19 03:14 92 16 98 Mechanical Ventilator 35 93 17 35 03/19/19 01:32 99 15 35 03/19/19 00:00 99.2 106 16 93/78 (83) 99 03/19/19 00:00 35 03/19/19 00:00 Mechanical Ventilator 03/19/19 00:00 111 03/18/19 23:48 111 17 93 Mechanical Ventilator 35 110 17 35 03/18/19 21:27 99 17 35 03/18/19 20:52 104 110/64 03/18/19 20:04 104 18 99 Mechanical Ventilator 35 106 16 35 03/18/19 20:00 35 03/18/19 20:00 105 03/18/19 20:00 98.2 104 17 110/79 (89) 100 03/18/19 20:00 Mechanical Ventilator 03/18/19 17:00 99.0 03/18/19 16:31 97 12 35 03/18/19 16:00 Mechanical Ventilator 03/18/19 16:00 35 03/18/19 16:00 98 16 100/65 (77) 100 03/18/19 15:45 110 03/18/19 15:23 109 15 97 Mechanical Ventilator 35 108 15 35 Intake and Output 03/18/19 03/19/19 19:00 07:00 Intake Total 856 ml 483 ml Output Total 454 ml 1600 ml Balance 402 ml -1117 ml Intake Free Water 60 ml 60 ml IV Total 55 ml Tube Feeding 621 ml 423 ml Other 120 ml Output Stool Total 4 ml Gastric Drainage Total 450 ml 600 ml Hemodialysis UF 1000 ml # Bowel Movements 3 Laboratory Tests 03/19/19 09:50: Sodium Level 138, Potassium Level 5.3#H, Chloride Level 101, Carbon Dioxide Level 22, Anion Gap 15, Blood Urea Nitrogen 32H, Creatinine 1.5H, Estimat Glomerular Filtration Rate 34.9, Glucose Level 208H, Calcium Level 9.8, Total Bilirubin 0.6, Aspartate Amino Transf (AST/SGOT) 35, Alanine Aminotransferase ( ALT/SGPT) 42, Alkaline Phosphatase 253H, Total Protein 9.6H, Albumin 3.4, Globulin 6.2, Albumin/Globulin Ratio 0.5L Height (Feet): 5 Height (Inches): 4.00 Weight (Pounds): 154 General Appearance: WD/WN EENT: PERRL/EOMI Neck: non-tender, normal alignment, supple Cardiovascular: normal peripheral pulses, normal rate, no gallop/murmur, no JVD Respiratory/Chest: rhonchi - bilaterally Abdomen: soft, decreased bowel sounds Neurologic: other - Quadraplegic Ede Thakur MD Mar 19, 2019 14:01
[2019-03-19 16:00] VITALS: BP 114/62
[2019-03-19] MEDS: Acetaminophen 650mg/20.3ml GT PRN (16:07)
--- NOTE | 2019-03-19 17:30 | NUR ---
NURSE NOTES: Mattress changed as ordered, patient tolerated well.
--- NOTE | 2019-03-19 17:44 | NUR ---
NURSE NOTES: Called [facility] and spoke with Cee for dialysis order tomorrow. Awaiting for call back/confirmation.
--- NOTE | 2019-03-19 18:00 | NUR ---
NURSE NOTES: Patient's sister refused the colace to be given to the patient at this time.
[2019-03-19] MEDS ORDERED: Tubing IV Secondary IV ONE (18:14)
[2019-03-19] MEDS ORDERED: Sterile Water Irrig 1000ml IRRIG ONE (18:14)
[2019-03-19] MEDS ORDERED: NS 275ml ONE (18:14)
--- NOTE | 2019-03-19 18:40 | NUR ---
NURSE NOTES: Patient's sister, Khadijah, requesting to clarify Reglan, Colace, and Miralax order with Dr Roldan. Message relayed to Dr Roldan, awaiting for orders/call back.
--- NOTE | 2019-03-19 19:00 | NUR ---
RESPIRATORY NOTE:Received Patient on Vent settings ACVC 12, VT 450, Fio2 35%, PEEP +5. trach intact no SOB or discomfort noted, HHN tx given, sx is done by registered medical assistant at bedside, alarms are on and audible and vent is plugged into red outlet. will continue to monitor the pts progress
--- NOTE | 2019-03-19 19:26 | NUR ---
NURSE NOTES: left message regarding tyenol and Reglan medication clarification. waiting for call back
--- NOTE | 2019-03-19 19:40 | NUR ---
HAND-OFF: Report given to Yanet Hartley RN. Patient in stable condition. Endorsed plan of care.
--- NOTE | 2019-03-19 19:48 | NUR ---
NURSE NOTES: pt is resting on the bed, Cardiac rhythm reported SR to ST from last shift. bed side rails x2, bed is loweste position, locked, and alarmed. call light within reach. pt's family member is at the bed side. J tube and G tube is intact. IV on the Right hand 22 G is intact, patent, and clean. will continue with plan of care.
[2019-03-19 20:00] VITALS: BP 93/53
[2019-03-19] MEDS: Dyna-Hex 2% Top Sol 2oz TOPIC SCH (20:05)
--- NOTE | 2019-03-19 20:26 | NUR ---
NURSE NOTES: left message to regarding pt's family wants to clarify the routes and schedule of medication tyenol and reglan. will wait for call back.
[2019-03-19] MEDS ORDERED: Epoetin Alfa-EPBX(ESRD on dialysis)10,000 unit/ml vial SUBQ SCH (21:00)
[2019-03-19] MEDS: Miralax 17gm pkt ORAL SCH (21:16)
--- NOTE | 2019-03-19 21:20 | NUR ---
NURSE NOTES: Wayne Salgado from the Lab, confirmed to not give epoetin Amadou due to changed in Blood Lab. will carry on.
[2019-03-19] MEDS: Levemir Flexpen SUBQ SCH (21:25)
--- NOTE | 2019-03-19 21:28 | Consultation ---
History of Present Illness General Date patient seen: Mar 19, 2019 Chief Complaint: General Complaint Present Illness HPI 64F with multiple medical comorbidities who is feeding tube dependant, vent dependant, living at home being cared for by sister that is currently admitted for medical care and management. on admission noted to have possible fecal impaction. gastroparesis with change of g tube to gj. spoke with sister who is very involved with her care and states that she has been having high residuals for some time now. no obstruction noted on imaging but does not tolerate feeds. has been intermittently constipated and requires bowel regimen. labs noted. patient non verbal and history from emr and sister. skin intact but sister concerned for risk of breakdown Allergies: Coded Allergies: OLANZAPINE (Verified Allergy, Severe, RESP FAILURE, 11/25/13) VANCOMYCIN (Verified Allergy, Severe, 11/25/13) PIPERACILLIN (Verified Allergy, Intermediate, HIVES, 11/25/13) TAZOBACTAM (Verified Allergy, Intermediate, HIVES, 11/25/13) Medication History Scheduled Acetaminophen (8 Hour Pain Relief), 1,000 MG ORAL EVERY 6 HOURS, (Reported) Albuterol Sulfate* (Albuterol Sulfate Hhn*), 3 ML INH TID, (Reported) Carvedilol* (Carvedilol*), 12.5 MG GT EVERY 12 HOURS, (Reported) Epoetin Amadou (Procrit), 10,000 UNIT SUBQ ONCE A WEEK, (Reported) Insulin Glargine (Lantus), 30 SUBQ BID, (Reported) Ipratropium [place] 0.5MG/2.5ML (Ipratropium [place] 0.5MG/2.5ML), 0.5 MG HHN Q6H, (Reported) Levothyroxine Sodium* (Levothyroxine Sodium*), 200 MCG GT DAILY, (Reported) Multivitamin (Multi-Vitamin Daily), 1 EACH GT DAILY, (Reported) Propylene Glycol/Peg 400/Pf (Systane 0.3-0.4% Eye Drop), 2 EACH OP EVERY 4 HOURS , (Reported) Sodium Chloride for inhalation* (Sodium Chloride Inhalation*), 5 ML IH EVERY 4 HOURS, (Reported) Vitamin B Cmplx/Vit C/Folic AC (Nephro-Tez Tablet), 1 TAB GT DAILY, (Reported) [Kokora Balance], 0.5 TSP TP BID, (Reported) Scheduled PRN Bisacodyl (Bisacodyl), 10 MG RC DAILY PRN for Constipation, (Reported) Diphenhydramine Hcl* (Benadryl Allergy*), 25 MG GT DAILY PRN for Itching, ( Reported) Miscellaneous Medications Chlorhexidine Gluconate* (Hibiclens*), 118 ML TP, (Reported) Insulin Aspart (Novolog), UNIT SQ, (Reported) Mineral Oil/Petrolatum,White (Systane Nighttime Eye Oint), 3.5 GM OP, (Reported) Discontinued Medications Hydrocodone Bit/Acetaminophen (Vicodin 5-300 Mg Tablet), 1 TAB GT Q4H PRN for For Pain, (Reported) Discontinued Reason: Pt stopped taking med Lorazepam* (Lorazepam*), 0.5 MG GT Q6HR PRN for For Anxiety, (Reported) Discontinued Reason: Pt stopped taking med Saccharomyces Boulardii (Florastor*), 250 MG GT TWICE A DAY, (Reported) Discontinued Reason: Pt stopped taking med Silver Sulfadiazine (Silver Sulfadiazine), 50 GM TP, (Reported) Discontinued Reason: Pt stopped taking med [kokora], TOPIC TID, (Reported) Discontinued Reason: Pt stopped taking med Patient History Limited by: medical condition History Provided By: Family Member, Medical Record, Caregiver, PMD Healthcare decision maker ALTON BOWEN Resuscitation status Full Code Advanced Directive on File No Past Medical/Surgical History Past Medical/Surgical History: (1) Acute renal failure (2) Fecal impaction (3) Pericardial effusion (4) Sepsis (5) Hypotension (6) Pneumonia (7) Tracheostomy malfunction (8) Tracheostomy malfunction Review of Systems ROS Narrative cannot obtain given medical condition Physical Exam General Appearance: no apparent distress Lines, tubes and drains: peripheral HEENT: mucous membranes moist Neck: trach Respiratory/Chest: on vent Cardiovascular/Chest: normal rate Abdomen: soft, decreased bowel sounds, distended, feeding tube Genitourinary/Rectal: valencia Extremities: slow capillary refill, other Skin Exam: warm/dry Neurologic: unresponsiveness Last 24 Hour Vital Signs Date Time Temp Pulse Resp B/P (MAP) Pulse Ox O2 Delivery O2 Flow Rate FiO2 03/19/19 19:25 109 17 98 Mechanical Ventilator 35 109 17 35 03/19/19 16:58 104 20 35 9/25/19 16:00 98.6 105 21 114/62 (79) 96 03/19/19 16:00 35 03/19/19 16:00 Mechanical Ventilator 03/19/19 15:23 100 03/19/19 15:04 102 18 98 Mechanical Ventilator 35 102 18 35 03/19/19 12:49 96 18 35 03/19/19 12:00 100 03/19/19 12:00 98.2 103 21 101/56 (71) 95 03/19/19 12:00 Mechanical Ventilator 03/19/19 12:00 35 03/19/19 10:45 99 18 96 Mechanical Ventilator 35 99 18 35 03/19/19 09:29 98 12 98 Mechanical Ventilator 35 97 12 35 03/19/19 09:00 98.6 97 19 95/60 (72) 98 03/19/19 08:37 96 95/60 03/19/19 08:00 Mechanical Ventilator 03/19/19 08:00 35 03/19/19 07:29 97 12 98 Mechanical Ventilator 35 97 12 35 03/19/19 07:28 99 03/19/19 04:32 95 16 35 03/19/19 04:00 90 03/19/19 04:00 35 03/19/19 04:00 Mechanical Ventilator 03/19/19 04:00 98.6 95 15 105/61 (76) 100 03/19/19 03:14 92 16 98 Mechanical Ventilator 35 93 17 35 03/19/19 01:32 99 15 35 03/19/19 00:00 99.2 106 16 93/78 (83) 99 03/19/19 00:00 35 03/19/19 00:00 Mechanical Ventilator 03/19/19 00:00 111 03/18/19 23:48 111 17 93 Mechanical Ventilator 35 110 17 35 03/18/19 21:27 99 17 35 Intake and Output 03/18/19 03/19/19 19:00 07:00 Intake Total 856 ml 483 ml Output Total 454 ml 1300 ml Balance 402 ml -817 ml Intake Free Water 60 ml 60 ml IV Total 55 ml Tube Feeding 621 ml 423 ml Other 120 ml Output Stool Total 4 ml Gastric Drainage Total 450 ml 300 ml Hemodialysis UF 1000 ml # Bowel Movements 3 Laboratory Tests Test 03/19/19 09:50 Sodium Level 138 MMOL/L (136-145) Potassium Level 5.3 MMOL/L (3.5-5.1) #H Chloride Level 101 MMOL/L (98-107) Carbon Dioxide Level 22 MMOL/L (21-32) Anion Gap 15 mmol/L (5-15) Blood Urea Nitrogen 32 mg/dL (7-18) H Creatinine 1.5 MG/DL (0.55-1.30) H Estimat Glomerular Filtration Rate 34.9 mL/min (>60) Glucose Level 208 MG/DL (74-106) H Calcium Level 9.8 MG/DL (8.5-10.1) Total Bilirubin 0.6 MG/DL (0.2-1.0) Aspartate Amino Transf (AST/SGOT) 35 U/L (15-37) Alanine Aminotransferase (ALT/SGPT) 42 U/L (12-78) Alkaline Phosphatase 253 U/L (46-116) H Total Protein 9.6 G/DL (6.4-8.2) H Albumin 3.4 G/DL (3.4-5.0) Globulin 6.2 g/dL Albumin/Globulin Ratio 0.5 (1.0-2.7) L Height (Feet): 5 Height (Inches): 4.00 Weight (Pounds): 154 Medications Current Medications Medications (Trade) Dose Ordered Sig/Alex Route PRN Reason Start Time Stop Time Status Last Admin Dose Admin Acetaminophen (Tylenol) 1,000 mg Q6H PRN GT Mild Pain/Temp > 100.5 03/15/19 12:45 04/10/19 16:29 03/19/19 16:07 Acetaminophen/ Hydrocodone Bitart ([place] 5/325) 1 tab Q4H PRN GT Moderate Pain (Pain Scale 4-6) 03/15/19 12:45 03/20/19 22:59 Albuterol Sulfate (Proventil) 2.5 mg Q4HRT HHN 03/16/19 19:00 03/21/19 14:59 03/19/19 19:33 Artificial Tears (Lacri-Lube) 1 applic Q4HR RIGHT EYE 03/15/19 13:00 04/14/19 12:59 03/19/19 17:15 Carvedilol (Coreg) 12.5 mg EVERY 12 HOURS GT 03/11/19 21:00 04/10/19 20:59 03/16/19 09:21 Cefepime HCl 1 gm/ Dextrose 55 ml @ 110 mls/hr Q24H IVPB 03/18/19 13:00 03/25/19 12:59 03/19/19 13:25 Chlorhexidine Gluconate (Rubina-Hex 2%) 1 applic DAILY@2000 TOPIC 03/12/19 20:00 04/11/19 19:59 03/19/19 20:05 Dextrose (Dextrose 50%) 25 ml Q30M PRN IV Hypoglycemia 03/11/19 17:15 04/10/19 17:14 Dextrose (Dextrose 50%) 50 ml Q30M PRN IV Hypoglycemia 03/11/19 17:15 04/10/19 17:14 Docusate Sodium (Colace) 100 mg TWICE A DAY GT 03/17/19 18:00 04/16/19 17:59 03/19/19 08:37 Epoetin Amadou (Epoetin Amadou(ESRD on dialysis)) 10,000 unit ONCE A WEEK SUBQ 03/19/19 21:00 04/18/19 20:59 Heparin Sodium (Porcine) (Heparin Sod 1000 units/ml 10ml) 2,000 unit ONCE PRN IV HD 03/20/19 06:00 03/20/19 23:59 Insulin Aspart (NovoLOG) EVERY 6 HOURS SUBQ 03/11/19 18:00 04/10/19 17:59 03/19/19 17:57 Insulin Detemir (Levemir) 15 units BEDTIME SUBQ 03/15/19 21:00 04/14/19 20:59 03/18/19 21:23 Ipratropium [place] (Atrovent) 500 mcg Q4HRT HHN 03/16/19 19:00 03/21/19 14:59 03/19/19 19:33 Levothyroxine Sodium (Synthroid) 200 mcg QHS GT 03/11/19 21:00 04/10/19 20:59 03/18/19 20:56 Metoclopramide HCl (Reglan) 10 mg Q8H PRN IVP Nausea & Vomiting 03/17/19 09:15 04/16/19 09:14 Morphine Sulfate (Morphine Sulfate) 2 mg Q3H PRN IVP severe pain 03/16/19 16:45 03/23/19 16:29 03/19/19 01:34 Moxifloxacin HCl (Vigamox) 1 drop Q12HR RIGHT EYE 03/16/19 21:00 03/23/19 20:59 03/19/19 08:46 Multivitamins (Multivitamins) 1 tab DAILY GT 03/12/19 09:00 04/11/19 08:59 03/19/19 08:37 Patient Own Medication (Patient's Own Med) 1 ea DAILYPRN PRN RECTAL constipation 03/11/19 21:15 04/10/19 21:14 03/19/19 12:15 Patient Own Medication (Patient's Own Med) 2 ea Q4HR OPHTHALM 03/17/19 13:00 04/16/19 12:59 03/19/19 17:15 Polyethylene Glycol (Miralax) 17 gm BEDTIME ORAL 03/17/19 21:00 04/16/19 20:59 03/17/19 20:37 Sodium Chloride (Sodium Chloride Dey-Nicoals 3%) 4 ml Q4HRT INH 03/17/19 07:00 04/16/19 06:59 03/19/19 19:44 Vitamin B Complex/ Vit C/Folic Acid (Nephrovite) 1 tab DAILY GT 03/12/19 09:00 04/11/19 08:59 03/19/19 08:37 Assessment/Plan Problem List: (1) Fecal impaction Assessment & Plan: seen by GI and G replaced with GJ can tolerate some j feeds still with significant bilious g tube drainage imaging noted requires bowel regimen intermittent constipation appreciate GI input consideration for surgical J and diverting loop colostomy in future if stable elective discussed with sister ICD Codes: K56.41 - Fecal impaction SNOMED: 71924529 (2) Sepsis Assessment & Plan: Cont IV ABx trend labs Rx as written vent feeds Complete assessment of pt's skin completed.. care givers at bedside. Pt has trach and noted to have washcloth intertwined with trach collar. Pt's personal insurance advisor at bedside and declined for washcloth to be removed during my exam as well. Pt's caregiver was educated coarseness of washcloth is risk to pt's skin and may cause skin breakdown. embedded nurse responded washcloth has been in use for over 10yrs and pt has never had skin breakdown. Skin assessed under and around trach and neck and no erythema or evidence of skin breakdown. Both elbows,both hips ,skin folds of breasts, abd and bilat groin and perineum without erythema or evidence of any skin breakdown. Back buttocks and both heels assessed and is pink without any evidence of skin breakdown. embedded nurse verbalized that previous day pt had red area on L buttocks /ischial region when on left side and similar on right when on right side. sister assured me she has "pictures to prove it". Erythema has now resolved and this was indicated to personal insurance advisor whom was also invited to assess pt's skin to confirm no redness noted. sister agreed that it had resolved since she last saw her and states it happens during the two hours she is on each side with planned turning. Moisture Barrier paste applied to perineum and buttocks. Optifoam drsgs applied as prevention to both hips ,Sacral area and both heels. Pt was positioned on her side with pillows and both heels floated off mattress. Pt is on an APM/ARCELIA mattress overlay due to pt identified as high risk for skin breakdown ;Francesco score of 9.Pt is being repositioned as per protocols and per pt's tolerance. patient currently without skin breakdown has padding placed with dressing on right hand IV Site. moisture noted and recommend removal / change but even during my examination of area the caregiver physically did not allow my to do so or even appropriately evaluate and stated that it is there to ensure IV line does not dislodge as she is a very hard IV stick. I had long discussion with family and caregiver about current care and plans. all questions answered. on air mattress Tx.Plan: Apply Moisture Barrier Paste to skin folds and buttocks with each perineal care. Cover sacral area with Optifoam drsg . Change every 3 days and prn. Apply Cavilon Skin Barrier to both hips. Cover each hip with Optifoam drsg. Change every 7 days and prn. Apply Cavilon Skin Barrier to both heels. Cover each heel with Optifoam drsg. Change every 7 days and prn. Reposition at least every 2hours or as tolerated. Off-load heels with pillow. ICD Codes: A41.9 - Sepsis, unspecified organism SNOMED: 62766213 Artemio Jones Mar 19, 2019 21:28
--- NOTE | 2019-03-19 21:29 | General Progress Note ---
Assessment/Plan Status: stable Assessment/Plan: Assessment - Resolved stool impaction - G TF intolerance - s/p G--> GJ conversion - Resp failure / trach - renal failure - contracted / vegetative state - high decub risk Recommendations - TF via J port - G port to gravity - Can only give elixer meds via J port - minimize G port meds - d/c colace and general MVI - Elevate HOB - decub prevention Subjective Allergies: Coded Allergies: OLANZAPINE (Verified Allergy, Severe, RESP FAILURE, 11/25/13) VANCOMYCIN (Verified Allergy, Severe, 11/25/13) PIPERACILLIN (Verified Allergy, Intermediate, HIVES, 11/25/13) TAZOBACTAM (Verified Allergy, Intermediate, HIVES, 11/25/13) Subjective above noted d/w staff physician Tolerating TF via J port some loose stools Objective Last 24 Hour Vital Signs Date Time Temp Pulse Resp B/P (MAP) Pulse Ox O2 Delivery O2 Flow Rate FiO2 03/19/19 21:00 103 93/53 03/19/19 19:25 109 17 98 Mechanical Ventilator 35 109 17 35 03/19/19 16:58 104 20 35 03/19/19 16:00 98.6 105 21 114/62 (79) 96 03/19/19 16:00 35 03/19/19 16:00 Mechanical Ventilator 03/19/19 15:23 100 03/19/19 15:04 102 18 98 Mechanical Ventilator 35 102 18 35 03/19/19 12:49 96 18 35 03/19/19 12:00 100 03/19/19 12:00 98.2 103 21 101/56 (71) 95 03/19/19 12:00 Mechanical Ventilator 03/19/19 12:00 35 03/19/19 10:45 99 18 96 Mechanical Ventilator 35 99 18 35 03/19/19 09:29 98 12 98 Mechanical Ventilator 35 97 12 35 03/19/19 09:00 98.6 97 19 95/60 (72) 98 03/19/19 08:37 96 95/60 03/19/19 08:00 Mechanical Ventilator 03/19/19 08:00 35 03/19/19 07:29 97 12 98 Mechanical Ventilator 35 97 12 35 03/19/19 07:28 99 03/19/19 04:32 95 16 35 03/19/19 04:00 90 03/19/19 04:00 35 03/19/19 04:00 Mechanical Ventilator 03/19/19 04:00 98.6 95 15 105/61 (76) 100 03/19/19 03:14 92 16 98 Mechanical Ventilator 35 93 17 35 03/19/19 01:32 99 15 35 03/19/19 00:00 99.2 106 16 93/78 (83) 99 03/19/19 00:00 35 03/19/19 00:00 Mechanical Ventilator 03/19/19 00:00 111 03/18/19 23:48 111 17 93 Mechanical Ventilator 35 110 17 35 Intake and Output 03/18/19 03/19/19 19:00 07:00 Intake Total 856 ml 483 ml Output Total 454 ml 1300 ml Balance 402 ml -817 ml Intake Free Water 60 ml 60 ml IV Total 55 ml Tube Feeding 621 ml 423 ml Other 120 ml Output Stool Total 4 ml Gastric Drainage Total 450 ml 300 ml Hemodialysis UF 1000 ml # Bowel Movements 3 Laboratory Tests 03/19/19 09:50: Sodium Level 138, Potassium Level 5.3#H, Chloride Level 101, Carbon Dioxide Level 22, Anion Gap 15, Blood Urea Nitrogen 32H, Creatinine 1.5H, Estimat Glomerular Filtration Rate 34.9, Glucose Level 208H, Calcium Level 9.8, Total Bilirubin 0.6, Aspartate Amino Transf (AST/SGOT) 35, Alanine Aminotransferase ( ALT/SGPT) 42, Alkaline Phosphatase 253H, Total Protein 9.6H, Albumin 3.4, Globulin 6.2, Albumin/Globulin Ratio 0.5L Height (Feet): 5 Height (Inches): 4.00 Weight (Pounds): 154 Objective Debilitated nonverbal woman unresponsive, comatose, eyes closed NCAT (+) trach coarse BS RR abd soft , GJT in good position (++) contracted extremities Neuro Coma, contracted Emily Hu MD Mar 19, 2019 21:29
[2019-03-19] MEDS: Metoclopramide 10mg/2ml Inj IVP SCH (22:33)
[2019-03-19] MEDS: Acetaminophen 650 MG SUPP RECTAL PRN (22:42)
[2019-03-20] VITALS (14 sets, daily range): BP systolic 65–113; BP diastolic 43–71
[2019-03-20] MEDS: Lacri-Lube Opth Oint 3.5gm RIGHT EYE SCH ×6 (01:08→22:30)
[2019-03-20] MEDS: SYSTANE ULTRA OPHTHALM SCH ×6 (01:08→22:29)
[2019-03-20] MEDS: NovoLOG Insulin Flexpen SUBQ SCH ×4 (01:11→18:47)
--- NOTE | 2019-03-20 01:30 | NUR ---
NURSE NOTES: pt's J tube feels resistance, will try to unclog the J tube. Gtube is intact and flushes well. will continue to try to unclog. pt is stable and resting on the bed.
[2019-03-20] MEDS: Sodium Chloride 3% 4ml Nebul Soln INH SCH ×5 (03:00→19:00)
[2019-03-20] MEDS: Albuterol ud Inhalation HHN SCH ×6 (03:06→23:30)
[2019-03-20] MEDS: Ipratropium 0.02% Inh Soln 2.5ml UD HHN SCH ×6 (03:06→23:29)
[2019-03-20 05:11] LABS: BASOPHILS % (AUTO) 1.1 % (0.0-2.0); EOSINOPHILS % (AUTO) 2.3 % (0.0-3.0); HEMATOCRIT 42.2 % (37.0-47.0); HEMOGLOBIN 13.9 G/DL (12.0-16.0); LYMPHOCYTES % (AUTO) 12.3 % (20.0-45.0); MEAN CORPUSCULAR VOLUME 95 FL (80-99); MONOCYTES % (AUTO) 5.5 % (1.0-10.0); NEUTROPHILS % (AUTO) 78.9 % (45.0-75.0); PLATELET COUNT 441 K/UL (150-450); RED BLOOD COUNT 4.45 M/UL (4.20-5.40); RED CELL DISTRIBUTION WIDTH 16.2 % (11.6-14.8); WHITE BLOOD COUNT 12.9 K/UL (4.8-10.8)
[2019-03-20 05:40] LABS: ALANINE AMINOTRANSFERASE 46 U/L (12-78); ALBUMIN 3.6 G/DL (3.4-5.0); ALBUMIN/GLOBULIN RATIO 0.5 (1.0-2.7); ALKALINE PHOSPHATASE 269 U/L (46-116); ANION GAP 16 mmol/L (5-15); ASPARTATE AMINO TRANSFERASE 29 U/L (15-37); BILIRUBIN,TOTAL 0.6 MG/DL (0.2-1.0); BLOOD UREA NITROGEN 52 mg/dL (7-18); CALCIUM 10.2 MG/DL (8.5-10.1); CARBON DIOXIDE 22 MMOL/L (21-32); CHLORIDE 99 MMOL/L (98-107); CREATININE 1.9 MG/DL (0.55-1.30); POTASSIUM 5.3 MMOL/L (3.5-5.1); SODIUM 137 MMOL/L (136-145)
--- NOTE | 2019-03-20 05:51 | NUR ---
NURSE NOTES: notified Dr. Roldan regarding J tube malfunctioning . waiting for call back.
[2019-03-20] MEDS: Pantoprazole Inj IVP SCH (06:00)
[2019-03-20] MEDS: Metoclopramide 10mg/2ml Inj IVP SCH ×3 (06:00→22:00)
[2019-03-20] MEDS ORDERED: Heparin Sod 1000 units/ml 10ml IV PRN (06:00)
--- NOTE | 2019-03-20 07:50 | NUR ---
HAND-OFF: Report given to Karla VILLARREAL. pt is on Vent and resting on the bed. call light within reach. Vitals are stable. healthcare associate is at the bedside.
--- NOTE | 2019-03-20 08:01 | General Progress Note ---
Assessment/Plan Problem List: (1) Tracheostomy malfunction ICD Codes: J95.03 - Malfunction of tracheostomy stoma SNOMED: 77424255 (2) Acute renal failure ICD Codes: N17.9 - Acute kidney failure, unspecified SNOMED: 88312808 (3) Pericardial effusion ICD Codes: I31.3 - Pericardial effusion (noninflammatory) SNOMED: 716938905 (4) Sepsis ICD Codes: A41.9 - Sepsis, unspecified organism SNOMED: 74858367 (5) Pneumonia ICD Codes: J18.9 - Pneumonia, unspecified organism SNOMED: 769047614 (6) Tracheostomy malfunction ICD Codes: J95.03 - Malfunction of tracheostomy stoma SNOMED: 54901577 (7) Hypotension ICD Codes: I95.9 - Hypotension, unspecified SNOMED: 56018563 (8) Fecal impaction ICD Codes: K56.41 - Fecal impaction SNOMED: 88078645 Status: stable Assessment/Plan: GI follow up monitor residuals g tube to LIS abx bowel regime monitor renal fxn/labs skin care vent support resp care monitor secretions Subjective ROS Limited/Unobtainable: No Constitutional: Reports: malaise, weakness HEENT: Reports: no symptoms Cardiovascular: Reports: no symptoms Respiratory: Reports: cough Gastrointestinal/Abdominal: Reports: no symptoms Genitourinary: Reports: no symptoms Neurologic/Psychiatric: Reports: pre-existing deficit Endocrine: Reports: no symptoms Hematologic/Lymphatic: Reports: anemia Allergies: Coded Allergies: OLANZAPINE (Verified Allergy, Severe, RESP FAILURE, 11/25/13) VANCOMYCIN (Verified Allergy, Severe, 11/25/13) PIPERACILLIN (Verified Allergy, Intermediate, HIVES, 11/25/13) TAZOBACTAM (Verified Allergy, Intermediate, HIVES, 11/25/13) All Systems: reviewed and negative except above Subjective j port now clogged. mild congestion per family. on abx. no distress. Objective Last 24 Hour Vital Signs Date Time Temp Pulse Resp B/P (MAP) Pulse Ox O2 Delivery O2 Flow Rate FiO2 03/20/19 07:13 101 18 96 Mechanical Ventilator 35 96 20 35 03/20/19 05:14 96 18 35 03/20/19 04:00 98.1 103 19 113/71 (85) 96 03/20/19 04:00 Mechanical Ventilator 03/20/19 04:00 35 03/20/19 03:46 94 03/20/19 02:49 99 19 97 Mechanical Ventilator 35 99 19 35 03/20/19 01:00 99 18 35 03/20/19 00:00 98.1 103 18 101/63 (76) 96 03/19/19 23:42 100 19 98 Mechanical Ventilator 35 100 19 35 03/19/19 23:27 Mechanical Ventilator 03/19/19 21:00 103 93/53 03/19/19 21:00 99 20 35 03/19/19 20:00 Mechanical Ventilator 03/19/19 20:00 97.9 102 21 93/53 (66) 100 03/19/19 20:00 35 03/19/19 20:00 101 03/19/19 19:25 109 17 98 Mechanical Ventilator 35 109 17 35 03/19/19 16:58 104 20 35 03/19/19 16:00 98.6 105 21 114/62 (79) 96 03/19/19 16:00 35 03/19/19 16:00 Mechanical Ventilator 03/19/19 15:23 100 03/19/19 15:04 102 18 98 Mechanical Ventilator 35 102 18 35 03/19/19 12:49 96 18 35 03/19/19 12:00 100 03/19/19 12:00 98.2 103 21 101/56 (71) 95 03/19/19 12:00 Mechanical Ventilator 03/19/19 12:00 35 03/19/19 10:45 99 18 96 Mechanical Ventilator 35 99 18 35 03/19/19 09:29 98 12 98 Mechanical Ventilator 35 97 12 35 03/19/19 09:00 98.6 97 19 95/60 (72) 98 03/19/19 08:37 96 95/60 Intake and Output 03/19/19 03/20/19 18:59 06:59 Intake Total 577 ml 235 ml Output Total 600 ml Balance -23 ml 235 ml Intake Free Water 60 ml Tube Feeding 517 ml 235 ml Gastric Drainage Total 600 ml Laboratory Tests 03/19/19 09:50: Sodium Level 138, Potassium Level 5.3#H, Chloride Level 101, Carbon Dioxide Level 22, Anion Gap 15, Blood Urea Nitrogen 32H, Creatinine 1.5H, Estimat Glomerular Filtration Rate 34.9, Glucose Level 208H, Calcium Level 9.8, Total Bilirubin 0.6, Aspartate Amino Transf (AST/SGOT) 35, Alanine Aminotransferase ( ALT/SGPT) 42, Alkaline Phosphatase 253H, Total Protein 9.6H, Albumin 3.4, Globulin 6.2, Albumin/Globulin Ratio 0.5L 03/20/19 03:15: Sodium Level 137, Potassium Level 5.3H, Chloride Level 99, Carbon Dioxide Level 22, Anion Gap 16H, Blood Urea Nitrogen 52H, Creatinine 1.9H, Estimat Glomerular Filtration Rate 26.6, Glucose Level 168H, Calcium Level 10.2H, Total Bilirubin 0.6, Aspartate Amino Transf (AST/SGOT) 29, Alanine Aminotransferase (ALT/SGPT) 46, Alkaline Phosphatase 269H, Total Protein 10.2H, Albumin 3.6, Globulin 6.6, Albumin/Globulin Ratio 0.5L, White Blood Count 12.9H, Red Blood Count 4.45, Hemoglobin 13.9, Hematocrit 42.2, Mean Corpuscular Volume 95, Mean Corpuscular Hemoglobin 31.3H, Mean Corpuscular Hemoglobin Concent 33.0, Red Cell Distribution Width 16.2H, Platelet Count 441, Mean Platelet Volume 7.2, Neutrophils (%) (Auto) 78.9H, Lymphocytes (%) (Auto) 12.3L, Monocytes (%) (Auto ) 5.5, Eosinophils (%) (Auto) 2.3, Basophils (%) (Auto) 1.1 Height (Feet): 5 Height (Inches): 4.00 Weight (Pounds): 154 Objective General Appearance: WD/WN, alert Neck: supple Cardiovascular: regular rhythm Respiratory/Chest: chest wall non-tender, rhonchi - bilaterally Abdomen: normal bowel sounds, non tender, soft, no organomegaly Edema: no edema noted Arm (L), no edema noted Arm (R), no edema noted Leg (L), no edema noted Leg (R), no edema noted Pedal (L), no edema noted Pedal (R), no edema noted Generalized Neurologic: disoriented, unresponsive, aphasia Pito Jones MD Mar 20, 2019 08:01
--- NOTE | 2019-03-20 08:24 | Pulmonology Progress Note ---
Assessment/Plan Assessment/Plan respiratory failure chronic encephalopathy trach CRF GT constipation increase in residual hypertension diabetes s/p GT-->JT conversion intolerance of meds gastroparesis + pseudomonas PLAN ID followup Cefepime and sensitive to both culture results vent as is/ on full support feeds as able reglan IV monitor feeds and residuals gt to suction HD and monitor lytes and monitor fluid status skin care and off load monitor hemodynamics chronic care- difficulty with GI function monitor sugars not ready for dc yet support as able full code impression, plan, and exam edited and reviewed in detail care discussed with RN Subjective ROS Limited/Unobtainable: Yes Allergies: Coded Allergies: OLANZAPINE (Verified Allergy, Severe, RESP FAILURE, 11/25/13) VANCOMYCIN (Verified Allergy, Severe, 11/25/13) PIPERACILLIN (Verified Allergy, Intermediate, HIVES, 11/25/13) TAZOBACTAM (Verified Allergy, Intermediate, HIVES, 11/25/13) Subjective care noted and reviewed with caregiver on antibiotics on vent/trach not tolerating feeds Objective Last 24 Hour Vital Signs Date Time Temp Pulse Resp B/P (MAP) Pulse Ox O2 Delivery O2 Flow Rate FiO2 03/20/19 08:00 98.1 103 17 110/67 (81) 98 03/20/19 07:13 101 18 96 Mechanical Ventilator 35 96 20 35 03/20/19 05:14 96 18 35 03/20/19 04:00 98.1 103 19 113/71 (85) 96 03/20/19 04:00 Mechanical Ventilator 03/20/19 04:00 35 03/20/19 03:46 94 03/20/19 02:49 99 19 97 Mechanical Ventilator 35 99 19 35 03/20/19 01:00 99 18 35 03/20/19 00:00 98.1 103 18 101/63 (76) 96 03/19/19 23:42 100 19 98 Mechanical Ventilator 35 100 19 35 03/19/19 23:27 Mechanical Ventilator 03/19/19 21:00 103 93/53 03/19/19 21:00 99 20 35 03/19/19 20:00 Mechanical Ventilator 03/19/19 20:00 97.9 102 21 93/53 (66) 100 03/19/19 20:00 35 03/19/19 20:00 101 03/19/19 19:25 109 17 98 Mechanical Ventilator 35 109 17 35 03/19/19 16:58 104 20 35 03/19/19 16:00 98.6 105 21 114/62 (79) 96 03/19/19 16:00 35 03/19/19 16:00 Mechanical Ventilator 03/19/19 15:23 100 03/19/19 15:04 102 18 98 Mechanical Ventilator 35 102 18 35 03/19/19 12:49 96 18 35 03/19/19 12:00 100 03/19/19 12:00 98.2 103 21 101/56 (71) 95 03/19/19 12:00 Mechanical Ventilator 03/19/19 12:00 35 03/19/19 10:45 99 18 96 Mechanical Ventilator 35 99 18 35 03/19/19 09:29 98 12 98 Mechanical Ventilator 35 97 12 35 03/19/19 09:00 98.6 97 19 95/60 (72) 98 03/19/19 08:37 96 95/60 Intake and Output 03/19/19 03/20/19 18:59 06:59 Intake Total 577 ml 235 ml Output Total 600 ml Balance -23 ml 235 ml Intake Free Water 60 ml Tube Feeding 517 ml 235 ml Gastric Drainage Total 600 ml Objective WDWN NAD trach reduced breath sounds bilaterally without rhonchi or wheeze [id number] without MRG NABS nontender no HSM no CCE nonfocal poorly responsive at present skin exam noted gt feeds Microbiology Date/Time Source Procedure Growth Status 03/17/19 16:20 Blood Blood Culture - Preliminary NO GROWTH AFTER 48 HOURS Resulted 03/17/19 16:20 Blood Blood Culture - Preliminary NO GROWTH AFTER 48 HOURS Resulted 03/17/19 20:30 Sputum Gram Stain - Final Resulted 03/17/19 20:30 Sputum Culture - Preliminary Pseudomonas Aeruginosa Resulted Laboratory Tests 03/19/19 09:50: Sodium Level 138, Potassium Level 5.3#H, Chloride Level 101, Carbon Dioxide Level 22, Anion Gap 15, Blood Urea Nitrogen 32H, Creatinine 1.5H, Estimat Glomerular Filtration Rate 34.9, Glucose Level 208H, Calcium Level 9.8, Total Bilirubin 0.6, Aspartate Amino Transf (AST/SGOT) 35, Alanine Aminotransferase ( ALT/SGPT) 42, Alkaline Phosphatase 253H, Total Protein 9.6H, Albumin 3.4, Globulin 6.2, Albumin/Globulin Ratio 0.5L 03/20/19 03:15: Sodium Level 137, Potassium Level 5.3H, Chloride Level 99, Carbon Dioxide Level 22, Anion Gap 16H, Blood Urea Nitrogen 52H, Creatinine 1.9H, Estimat Glomerular Filtration Rate 26.6, Glucose Level 168H, Calcium Level 10.2H, Total Bilirubin 0.6, Aspartate Amino Transf (AST/SGOT) 29, Alanine Aminotransferase (ALT/SGPT) 46, Alkaline Phosphatase 269H, Total Protein 10.2H, Albumin 3.6, Globulin 6.6, Albumin/Globulin Ratio 0.5L, White Blood Count 12.9H, Red Blood Count 4.45, Hemoglobin 13.9, Hematocrit 42.2, Mean Corpuscular Volume 95, Mean Corpuscular Hemoglobin 31.3H, Mean Corpuscular Hemoglobin Concent 33.0, Red Cell Distribution Width 16.2H, Platelet Count 441, Mean Platelet Volume 7.2, Neutrophils (%) (Auto) 78.9H, Lymphocytes (%) (Auto) 12.3L, Monocytes (%) (Auto ) 5.5, Eosinophils (%) (Auto) 2.3, Basophils (%) (Auto) 1.1 Current Medications Medications (Trade) Dose Ordered Sig/Alex Route PRN Reason Start Time Stop Time Status Last Admin Dose Admin Acetaminophen (Tylenol) 975 mg EVERY 8 HOURS PRN RECTAL For Pain 03/19/19 22:00 04/18/19 21:59 03/19/19 22:42 Acetaminophen (Tylenol) 1,000 mg Q6H PRN GT Mild Pain/Temp > 100.5 03/15/19 12:45 04/10/19 16:29 03/19/19 16:07 Acetaminophen/ Hydrocodone Bitart ([place] 5/325) 1 tab Q4H PRN GT Moderate Pain (Pain Scale 4-6) 03/15/19 12:45 03/20/19 22:59 Albuterol Sulfate (Proventil) 2.5 mg Q4HRT HHN 03/16/19 19:00 03/21/19 14:59 03/20/19 07:18 Artificial Tears (Lacri-Lube) 1 applic Q4HR RIGHT EYE 03/15/19 13:00 04/14/19 12:59 03/20/19 05:58 Carvedilol (Coreg) 12.5 mg EVERY 12 HOURS GT 03/11/19 21:00 04/10/19 20:59 03/16/19 09:21 Cefepime HCl 1 gm/ Dextrose 55 ml @ 110 mls/hr Q24H IVPB 03/18/19 13:00 03/25/19 12:59 03/19/19 13:25 Chlorhexidine Gluconate (Rubina-Hex 2%) 1 applic DAILY@2000 TOPIC 03/12/19 20:00 04/11/19 19:59 03/19/19 20:05 Dextrose (Dextrose 50%) 25 ml Q30M PRN IV Hypoglycemia 03/11/19 17:15 04/10/19 17:14 Dextrose (Dextrose 50%) 50 ml Q30M PRN IV Hypoglycemia 03/11/19 17:15 04/10/19 17:14 Epoetin Amadou (Epoetin Amadou(ESRD on dialysis)) 10,000 unit ONCE A WEEK SUBQ 03/19/19 21:00 04/18/19 20:59 Heparin Sodium (Porcine) (Heparin Sod 1000 units/ml 10ml) 2,000 unit ONCE PRN IV HD 03/20/19 06:00 03/20/19 23:59 Insulin Aspart (NovoLOG) EVERY 6 HOURS SUBQ 03/11/19 18:00 04/10/19 17:59 03/20/19 01:11 Insulin Detemir (Levemir) 15 units BEDTIME SUBQ 03/15/19 21:00 04/14/19 20:59 03/19/19 21:25 Ipratropium [place] (Atrovent) 500 mcg Q4HRT HHN 03/16/19 19:00 03/21/19 14:59 03/20/19 07:18 Levothyroxine Sodium (Synthroid) 200 mcg QHS GT 03/11/19 21:00 04/10/19 20:59 03/19/19 21:16 Metoclopramide HCl (Reglan) 10 mg EVERY 8 HOURS IVP 03/19/19 22:00 04/18/19 21:59 03/20/19 06:00 Morphine Sulfate (Morphine Sulfate) 2 mg Q3H PRN IVP severe pain 03/16/19 16:45 03/23/19 16:29 03/19/19 01:34 Moxifloxacin HCl (Vigamox) 1 drop Q12HR RIGHT EYE 03/16/19 21:00 03/23/19 20:59 03/19/19 21:22 Pantoprazole (Protonix) 40 mg DAILY@0630 IVP 03/20/19 06:30 04/19/19 06:29 03/20/19 06:00 Patient Own Medication (Patient's Own Med) 1 ea DAILYPRN PRN RECTAL constipation 03/11/19 21:15 04/10/19 21:14 03/19/19 12:15 Patient Own Medication (Patient's Own Med) 2 ea Q4HR OPHTHALM 03/17/19 13:00 04/16/19 12:59 03/20/19 05:58 Polyethylene Glycol (Miralax) 17 gm BEDTIME ORAL 03/17/19 21:00 04/16/19 20:59 03/19/19 21:16 Sodium Chloride (Sodium Chloride Dey-Nicolas 3%) 4 ml Q4HRT INH 03/17/19 07:00 04/16/19 06:59 03/19/19 19:44 Vitamin B Complex/ Vit C/Folic Acid (Nephrovite) 1 tab DAILY GT 03/12/19 09:00 04/11/19 08:59 03/19/19 08:37 Maykel Evans MD Mar 20, 2019 08:24
--- NOTE | 2019-03-20 08:25 | NUR ---
NURSE NOTES: called Dr. Hu and, informed him that Jtube is clogged since 1:30 am. No tube feeding was given since then.
--- NOTE | 2019-03-20 08:40 | NUR ---
NURSE NOTES: Dr. Hu called and he said that patient's sister is not picking up her phone. Doctor wants to discussed plan of care.
[2019-03-20] MEDS: Carvedilol 12.5mg tab GT SCH ×2 (09:00→21:00)
--- NOTE | 2019-03-20 09:09 | Infectious Diseases Prog Note ---
Assessment/Plan Assessment/Plan A; 1. Pseudomonas pneumonia. 2. Leukocytosis. 3. Respiratory failure on ventilator 4. Diabetes. 5. Hypertension. 6. Fecal impaction PLAN: 1. Continue IV cefepime X 4 days Subjective ROS Limited/Unobtainable: Yes Constitutional: Denies: fever Allergies: Coded Allergies: OLANZAPINE (Verified Allergy, Severe, RESP FAILURE, 11/25/13) VANCOMYCIN (Verified Allergy, Severe, 11/25/13) PIPERACILLIN (Verified Allergy, Intermediate, HIVES, 11/25/13) TAZOBACTAM (Verified Allergy, Intermediate, HIVES, 11/25/13) Objective Vital Signs Last 24 Hour Vital Signs Date Time Temp Pulse Resp B/P (MAP) Pulse Ox O2 Delivery O2 Flow Rate FiO2 03/20/19 08:00 97.3 103 17 110/67 (81) 98 03/20/19 07:13 101 18 96 Mechanical Ventilator 35 96 20 35 03/20/19 05:14 96 18 35 03/20/19 04:00 98.1 103 19 113/71 (85) 96 03/20/19 04:00 Mechanical Ventilator 03/20/19 04:00 35 03/20/19 03:46 94 03/20/19 02:49 99 19 97 Mechanical Ventilator 35 99 19 35 03/20/19 01:00 99 18 35 03/20/19 00:00 98.1 103 18 101/63 (76) 96 03/19/19 23:42 100 19 98 Mechanical Ventilator 35 100 19 35 03/19/19 23:27 Mechanical Ventilator 03/19/19 21:00 103 93/53 03/19/19 21:00 99 20 35 03/19/19 20:00 Mechanical Ventilator 03/19/19 20:00 97.9 102 21 93/53 (66) 100 03/19/19 20:00 35 03/19/19 20:00 101 03/19/19 19:25 109 17 98 Mechanical Ventilator 35 109 17 35 03/19/19 16:58 104 20 35 03/19/19 16:00 98.6 105 21 114/62 (79) 96 03/19/19 16:00 35 03/19/19 16:00 Mechanical Ventilator 03/19/19 15:23 100 03/19/19 15:04 102 18 98 Mechanical Ventilator 35 102 18 35 03/19/19 12:49 96 18 35 03/19/19 12:00 100 03/19/19 12:00 98.2 103 21 101/56 (71) 95 03/19/19 12:00 Mechanical Ventilator 03/19/19 12:00 35 03/19/19 10:45 99 18 96 Mechanical Ventilator 35 99 18 35 03/19/19 09:29 98 12 98 Mechanical Ventilator 35 97 12 35 Height (Feet): 5 Height (Inches): 4.00 Weight (Pounds): 154 HEENT: status post trach Respiratory/Chest: other - coarse sounds on ventilator Cardiovascular: tachycardia Abdomen: soft, non tender, other - GT feeding Extremities: no edema Neurologic/Psychiatric: unresponsiveness, aphasia Microbiology Date/Time Source Procedure Growth Status 03/17/19 16:20 Blood Blood Culture - Preliminary NO GROWTH AFTER 48 HOURS Resulted 03/17/19 16:20 Blood Blood Culture - Preliminary NO GROWTH AFTER 48 HOURS Resulted 03/17/19 20:30 Sputum Gram Stain - Final Resulted 03/17/19 20:30 Sputum Culture - Preliminary Pseudomonas Aeruginosa Resulted Laboratory Tests Test 03/19/19 09:50 03/20/19 03:15 Sodium Level 138 MMOL/L (136-145) 137 MMOL/L (136-145) Potassium Level 5.3 MMOL/L (3.5-5.1) #H 5.3 MMOL/L (3.5-5.1) H Chloride Level 101 MMOL/L (98-107) 99 MMOL/L (98-107) Carbon Dioxide Level 22 MMOL/L (21-32) 22 MMOL/L (21-32) Anion Gap 15 mmol/L (5-15) 16 mmol/L (5-15) H Blood Urea Nitrogen 32 mg/dL (7-18) H 52 mg/dL (7-18) H Creatinine 1.5 MG/DL (0.55-1.30) H 1.9 MG/DL (0.55-1.30) H Estimat Glomerular Filtration Rate 34.9 mL/min (>60) 26.6 mL/min (>60) Glucose Level 208 MG/DL (74-106) H 168 MG/DL (74-106) H Calcium Level 9.8 MG/DL (8.5-10.1) 10.2 MG/DL (8.5-10.1) H Total Bilirubin 0.6 MG/DL (0.2-1.0) 0.6 MG/DL (0.2-1.0) Aspartate Amino Transf (AST/SGOT) 35 U/L (15-37) 29 U/L (15-37) Alanine Aminotransferase (ALT/SGPT) 42 U/L (12-78) 46 U/L (12-78) Alkaline Phosphatase 253 U/L (46-116) H 269 U/L (46-116) H Total Protein 9.6 G/DL (6.4-8.2) H 10.2 G/DL (6.4-8.2) H Albumin 3.4 G/DL (3.4-5.0) 3.6 G/DL (3.4-5.0) Globulin 6.2 g/dL 6.6 g/dL Albumin/Globulin Ratio 0.5 (1.0-2.7) L 0.5 (1.0-2.7) L White Blood Count 12.9 K/UL (4.8-10.8) H Red Blood Count 4.45 M/UL (4.20-5.40) Hemoglobin 13.9 G/DL (12.0-16.0) Hematocrit 42.2 % (37.0-47.0) Mean Corpuscular Volume 95 FL (80-99) Mean Corpuscular Hemoglobin 31.3 PG (27.0-31.0) H Mean Corpuscular Hemoglobin Concent 33.0 G/DL (32.0-36.0) Red Cell Distribution Width 16.2 % (11.6-14.8) H Platelet Count 441 K/UL (150-450) Mean Platelet Volume 7.2 FL (6.5-10.1) Neutrophils (%) (Auto) 78.9 % (45.0-75.0) H Lymphocytes (%) (Auto) 12.3 % (20.0-45.0) L Monocytes (%) (Auto) 5.5 % (1.0-10.0) Eosinophils (%) (Auto) 2.3 % (0.0-3.0) Basophils (%) (Auto) 1.1 % (0.0-2.0) Current Medications Medications (Trade) Dose Ordered Sig/Alex Route PRN Reason Start Time Stop Time Status Last Admin Dose Admin Acetaminophen (Tylenol) 975 mg EVERY 8 HOURS PRN RECTAL For Pain 03/19/19 22:00 04/18/19 21:59 03/19/19 22:42 Acetaminophen (Tylenol) 1,000 mg Q6H PRN GT Mild Pain/Temp > 100.5 03/15/19 12:45 04/10/19 16:29 03/19/19 16:07 Acetaminophen/ Hydrocodone Bitart ([place] 5/325) 1 tab Q4H PRN GT Moderate Pain (Pain Scale 4-6) 03/15/19 12:45 03/20/19 22:59 Albuterol Sulfate (Proventil) 2.5 mg Q4HRT HHN 03/16/19 19:00 03/21/19 14:59 03/20/19 07:18 Artificial Tears (Lacri-Lube) 1 applic Q4HR RIGHT EYE 03/15/19 13:00 04/14/19 12:59 03/20/19 05:58 Carvedilol (Coreg) 12.5 mg EVERY 12 HOURS GT 03/11/19 21:00 04/10/19 20:59 03/16/19 09:21 Cefepime HCl 1 gm/ Dextrose 55 ml @ 110 mls/hr Q24H IVPB 03/18/19 13:00 03/25/19 12:59 03/19/19 13:25 Chlorhexidine Gluconate (Rubina-Hex 2%) 1 applic DAILY@2000 TOPIC 03/12/19 20:00 04/11/19 19:59 03/19/19 20:05 Dextrose (Dextrose 50%) 25 ml Q30M PRN IV Hypoglycemia 03/11/19 17:15 04/10/19 17:14 Dextrose (Dextrose 50%) 50 ml Q30M PRN IV Hypoglycemia 03/11/19 17:15 04/10/19 17:14 Epoetin Amadou (Epoetin Amadou(ESRD on dialysis)) 10,000 unit ONCE A WEEK SUBQ 03/19/19 21:00 04/18/19 20:59 Heparin Sodium (Porcine) (Heparin Sod 1000 units/ml 10ml) 2,000 unit ONCE PRN IV HD 03/20/19 06:00 03/20/19 23:59 Insulin Aspart (NovoLOG) EVERY 6 HOURS SUBQ 03/11/19 18:00 04/10/19 17:59 03/20/19 01:11 Insulin Detemir (Levemir) 15 units BEDTIME SUBQ 03/15/19 21:00 04/14/19 20:59 03/19/19 21:25 Ipratropium [place] (Atrovent) 500 mcg Q4HRT HHN 03/16/19 19:00 03/21/19 14:59 03/20/19 07:18 Levothyroxine Sodium (Synthroid) 200 mcg QHS GT 03/11/19 21:00 04/10/19 20:59 03/19/19 21:16 Metoclopramide HCl (Reglan) 10 mg EVERY 8 HOURS IVP 03/19/19 22:00 04/18/19 21:59 03/20/19 06:00 Morphine Sulfate (Morphine Sulfate) 2 mg Q3H PRN IVP severe pain 03/16/19 16:45 03/23/19 16:29 03/19/19 01:34 Moxifloxacin HCl (Vigamox) 1 drop Q12HR RIGHT EYE 03/16/19 21:00 03/23/19 20:59 03/19/19 21:22 Pantoprazole (Protonix) 40 mg DAILY@0630 IVP 03/20/19 06:30 04/19/19 06:29 03/20/19 06:00 Patient Own Medication (Patient's Own Med) 1 ea DAILYPRN PRN RECTAL constipation 03/11/19 21:15 04/10/19 21:14 03/19/19 12:15 Patient Own Medication (Patient's Own Med) 2 ea Q4HR OPHTHALM 03/17/19 13:00 04/16/19 12:59 03/20/19 05:58 Polyethylene Glycol (Miralax) 17 gm BEDTIME ORAL 03/17/19 21:00 04/16/19 20:59 03/19/19 21:16 Sodium Chloride (Sodium Chloride Dey-Nicolas 3%) 4 ml Q4HRT INH 03/17/19 07:00 04/16/19 06:59 03/19/19 19:44 Vitamin B Complex/ Vit C/Folic Acid (Nephrovite) 1 tab DAILY GT 03/12/19 09:00 04/11/19 08:59 03/19/19 08:37 Gutierrez Edwards MD Mar 20, 2019 09:09
[2019-03-20] MEDS: Vigamox Opth Soln 3ml RIGHT EYE SCH ×3 (09:40→16:37)
[2019-03-20] MEDS: Nephrovite tab (Rena-Vite) GT SCH (09:41)
--- NOTE | 2019-03-20 10:20 | NUR ---
NURSE NOTES: VIP census clerk/Lupillo at bedside. Will start hemodialysis.
--- NOTE | 2019-03-20 10:40 | NUR ---
NURSE NOTES: Dr. Hu at bedside.
[2019-03-20] MEDS ORDERED: Metoclopramide 10mg/2ml Inj IVP PRN (11:00)
[2019-03-20] MEDS: Cefepime 1gm/D5W 55ml IVPB SCH ×2 (13:25)
[2019-03-20] MEDS: Acetaminophen 650 MG SUPP RECTAL PRN (13:30)
--- NOTE | 2019-03-20 15:45 | NUR ---
NURSE NOTES: Dr. Tobar at bedside. Discussing plan of care with patient's sister.
--- NOTE | 2019-03-20 16:04 | Nephrology Progress Note ---
Assessment/Plan Assessment 1) VDRF 2) ESRD 3) DM 4) Gastroparesis 5) Probable PNA, 6) Doubt CHF &) Some eosinophilia ? cause, Parasites, eosinophilic GE or pneumonitis Plan: HD done today Continue IV ATB Needs to see GI motility specialist Subjective Subjective She is on the vent, had Hd today with 1 L removal, some tachypnea, the NGT to suction is discontinued, Reglan is tried, still high residual Gt, JT is clogged Objective Objective Last 24 Hour Vital Signs Date Time Temp Pulse Resp B/P (MAP) Pulse Ox O2 Delivery O2 Flow Rate FiO2 03/20/19 14:39 108 15 99 Mechanical Ventilator 35 108 16 35 03/20/19 13:30 99.8 03/20/19 13:16 108 14 35 03/20/19 12:00 35 03/20/19 12:00 Mechanical Ventilator 03/20/19 12:00 97.3 110 14 91/57 (68) 100 03/20/19 11:44 119 03/20/19 11:27 116 16 99 Mechanical Ventilator 35 116 17 35 03/20/19 09:16 105 19 35 03/20/19 09:00 105 110/67 03/20/19 08:00 Mechanical Ventilator 03/20/19 08:00 97.3 103 17 110/67 (81) 98 03/20/19 08:00 35 03/20/19 07:40 102 03/20/19 07:13 101 18 96 Mechanical Ventilator 35 96 20 35 03/20/19 05:14 96 18 35 03/20/19 04:00 98.1 103 19 113/71 (85) 96 03/20/19 04:00 Mechanical Ventilator 03/20/19 04:00 35 03/20/19 03:46 94 03/20/19 02:49 99 19 97 Mechanical Ventilator 35 99 19 35 03/20/19 01:00 99 18 35 03/20/19 00:00 98.1 103 18 101/63 (76) 96 03/19/19 23:42 100 19 98 Mechanical Ventilator 35 100 19 35 03/19/19 23:27 Mechanical Ventilator 03/19/19 21:00 103 93/53 03/19/19 21:00 99 20 35 03/19/19 20:00 Mechanical Ventilator 03/19/19 20:00 97.9 102 21 93/53 (66) 100 03/19/19 20:00 35 03/19/19 20:00 101 03/19/19 19:25 109 17 98 Mechanical Ventilator 35 109 17 35 03/19/19 16:58 104 20 35 03/19/19 16:00 98.6 105 21 114/62 (79) 96 03/19/19 16:00 35 03/19/19 16:00 Mechanical Ventilator Intake and Output 03/19/19 03/20/19 19:00 07:00 Intake Total 577 ml 188 ml Output Total 600 ml Balance -23 ml 188 ml Intake Free Water 60 ml Tube Feeding 517 ml 188 ml Gastric Drainage Total 600 ml Laboratory Tests 03/20/19 03:15: White Blood Count 12.9H, Red Blood Count 4.45, Hemoglobin 13.9, Hematocrit 42.2 , Mean Corpuscular Volume 95, Mean Corpuscular Hemoglobin 31.3H, Mean Corpuscular Hemoglobin Concent 33.0, Red Cell Distribution Width 16.2H, Platelet Count 441, Mean Platelet Volume 7.2, Neutrophils (%) (Auto) 78.9H, Lymphocytes (%) (Auto) 12.3L, Monocytes (%) (Auto) 5.5, Eosinophils (%) (Auto) 2.3, Basophils (%) (Auto) 1.1, Sodium Level 137, Potassium Level 5.3H, Chloride Level 99, Carbon Dioxide Level 22, Anion Gap 16H, Blood Urea Nitrogen 52H, Creatinine 1.9H, Estimat Glomerular Filtration Rate 26.6, Glucose Level 168H, Calcium Level 10.2H, Total Bilirubin 0.6, Aspartate Amino Transf (AST/SGOT) 29, Alanine Aminotransferase (ALT/SGPT) 46, Alkaline Phosphatase 269H, Total Protein 10.2H, Albumin 3.6, Globulin 6.6, Albumin/Globulin Ratio 0.5L Height (Feet): 5 Height (Inches): 4.00 Weight (Pounds): 154 General Appearance: WD/WN EENT: PERRL/EOMI Neck: non-tender, other - Tracheostomy Cardiovascular: normal rate, no JVD, tachycardia Respiratory/Chest: crackles/rales, rhonchi - bilaterally Abdomen: hypoactive bowel sounds Neurologic: other - Quadriplegia Ede Thakur MD Mar 20, 2019 16:04
[2019-03-20] MEDS ORDERED: D5NS 1,000 ML IV SCH (16:10)
--- NOTE | 2019-03-20 16:20 | NUR ---
NURSE NOTES: Dr. Evans called with order to have patient Discharge to Home. Continue hospital meds. Patient's sister to arrange transportation.
--- NOTE | 2019-03-20 16:55 | NUR ---
NURSE NOTES: Patients blood pressure low,Dr. De León notified ordered,1 liter NS IV bolus given by PHIL Acosta ,
--- NOTE | 2019-03-20 18:38 | NUR ---
NURSE NOTES: Dr. Hu informed that patient does still have residual of 40 ML. said to continue monitoring, and check residual every 4 hours.
--- NOTE | 2019-03-20 18:55 | NUR ---
NURSE NOTES: Informed Dr. Evans that patient's latest blood pressure is 96/63. With order to hold ICU transfer and to bolus NS 1 more liter. And to let MD results after bolus.
--- NOTE | 2019-03-20 19:03 | General Progress Note ---
Assessment/Plan Status: stable Assessment/Plan: Assessment - Resolved stool impaction - G TF intolerance - s/p G--> GJ conversion, j port occluded - Resp failure / trach - renal failure - contracted / vegetative state - high decub risk - hypotension - leukocytosis Recommendations - TF via G port - on hold due to hypotension - Reglan trial - ICU transfer - IVF , pressors, abx - sepsis w/u - decub prevention - guarded Subjective Allergies: Coded Allergies: OLANZAPINE (Verified Allergy, Severe, RESP FAILURE, 11/25/13) VANCOMYCIN (Verified Allergy, Severe, 11/25/13) PIPERACILLIN (Verified Allergy, Intermediate, HIVES, 11/25/13) TAZOBACTAM (Verified Allergy, Intermediate, HIVES, 11/25/13) Subjective Called by RN early am J port occluded unable to clear the J port by RN or GI discussed with sister at length decided to use G port as gastrostomy tube and begin ATC reglan trial residuals already high after 1st reglan dose then patient hypotensive. Being transferred to ICU Objective Last 24 Hour Vital Signs Date Time Temp Pulse Resp B/P (MAP) Pulse Ox O2 Delivery O2 Flow Rate FiO2 03/20/19 18:50 91 18 96/67 (77) 98 03/20/19 18:33 92 18 82/48 (59) 98 03/20/19 17:13 103 18 73/49 (57) 98 03/20/19 17:00 110 14 65/43 (50) 100 03/20/19 16:57 107 14 77/50 (59) 100 03/20/19 16:55 106 14 69/49 (56) 100 03/20/19 16:50 106 18 35 03/20/19 16:00 Mechanical Ventilator 03/20/19 16:00 35 03/20/19 15:14 110 03/20/19 14:39 108 15 99 Mechanical Ventilator 35 108 16 35 03/20/19 13:30 99.8 03/20/19 13:16 108 14 35 03/20/19 12:00 35 03/20/19 12:00 Mechanical Ventilator 03/20/19 12:00 97.3 110 14 91/57 (68) 100 03/20/19 11:44 119 03/20/19 11:27 116 16 99 Mechanical Ventilator 35 116 17 35 03/20/19 09:16 105 19 35 03/20/19 09:00 105 110/67 03/20/19 08:00 Mechanical Ventilator 03/20/19 08:00 97.3 103 17 110/67 (81) 98 03/20/19 08:00 35 03/20/19 07:40 102 03/20/19 07:13 101 18 96 Mechanical Ventilator 35 96 20 35 03/20/19 05:14 96 18 35 03/20/19 04:00 98.1 103 19 113/71 (85) 96 03/20/19 04:00 Mechanical Ventilator 03/20/19 04:00 35 03/20/19 03:46 94 03/20/19 02:49 99 19 97 Mechanical Ventilator 35 99 19 35 03/20/19 01:00 99 18 35 03/20/19 00:00 98.1 103 18 101/63 (76) 96 03/19/19 23:42 100 19 98 Mechanical Ventilator 35 100 19 35 03/19/19 23:27 Mechanical Ventilator 03/19/19 21:00 103 93/53 03/19/19 21:00 99 20 35 03/19/19 20:00 Mechanical Ventilator 03/19/19 20:00 97.9 102 21 93/53 (66) 100 03/19/19 20:00 35 03/19/19 20:00 101 03/19/19 19:25 109 17 98 Mechanical Ventilator 35 109 17 35 Intake and Output 03/19/19 03/20/19 19:00 07:00 Intake Total 577 ml 188 ml Output Total 600 ml Balance -23 ml 188 ml Intake Free Water 60 ml Tube Feeding 517 ml 188 ml Gastric Drainage Total 600 ml Laboratory Tests 03/20/19 03:15: White Blood Count 12.9H, Red Blood Count 4.45, Hemoglobin 13.9, Hematocrit 42.2 , Mean Corpuscular Volume 95, Mean Corpuscular Hemoglobin 31.3H, Mean Corpuscular Hemoglobin Concent 33.0, Red Cell Distribution Width 16.2H, Platelet Count 441, Mean Platelet Volume 7.2, Neutrophils (%) (Auto) 78.9H, Lymphocytes (%) (Auto) 12.3L, Monocytes (%) (Auto) 5.5, Eosinophils (%) (Auto) 2.3, Basophils (%) (Auto) 1.1, Sodium Level 137, Potassium Level 5.3H, Chloride Level 99, Carbon Dioxide Level 22, Anion Gap 16H, Blood Urea Nitrogen 52H, Creatinine 1.9H, Estimat Glomerular Filtration Rate 26.6, Glucose Level 168H, Calcium Level 10.2H, Total Bilirubin 0.6, Aspartate Amino Transf (AST/SGOT) 29, Alanine Aminotransferase (ALT/SGPT) 46, Alkaline Phosphatase 269H, Total Protein 10.2H, Albumin 3.6, Globulin 6.6, Albumin/Globulin Ratio 0.5L Height (Feet): 5 Height (Inches): 4.00 Weight (Pounds): 154 Objective Debilitated nonverbal woman unresponsive, comatose, eyes closed NCAT (+) trach coarse BS RR abd soft , J port occluded. G port open (++) contracted extremities Neuro Coma, contracted Emily Hu MD Mar 20, 2019 19:03
--- NOTE | 2019-03-20 19:30 | NUR ---
HAND-OFF: Report given to Yanet portillo RN.
--- NOTE | 2019-03-20 19:31 | NUR ---
NURSE NOTES: received pt from Karla VILLARREAL., pt is receiving NS on bolus. family member at the bedside. G tube is intact. side rails up, bed locked, positioned at Trendelenburg position due to low BP. call light within reach. explained and encouraged pt's family member questions,and answered all questions that were asked. will monitor pt closely.
--- NOTE | 2019-03-20 19:54 | NUR ---
NURSE NOTES: pt's bp is 94/59, o2 sat is 100%. pt's family at the bed side. call light within reach. will continue to monitor pt.
--- NOTE | 2019-03-20 20:28 | NUR ---
NURSE NOTES: pt's bp on the arm 98/61 while getting bolous. BP 98/61. family at the bed side. P[employer]ALL Kalyn at the bed side. pt's family at the bed side.
[2019-03-20] MEDS: Dyna-Hex 2% Top Sol 2oz TOPIC SCH (20:33)
--- NOTE | 2019-03-20 20:52 | NUR ---
NURSE NOTES: reported pt's condistions and vital signs to DR. Hu. Per Dr. Hu, will transfer to the pt to ICU. will carry on
[2019-03-20] MEDS: Miralax 17gm pkt ORAL SCH (21:00)
[2019-03-20] MEDS: Levemir Flexpen SUBQ SCH (21:00)
--- NOTE | 2019-03-20 21:15 | NUR ---
NURSE NOTES: pt's BP 97/57 at this moment. other vitals are stable. family at the bedside. explained and encouraged questions and answered. will keep monitor pt closely.
--- NOTE | 2019-03-20 21:25 | NUR ---
HAND-OFF: Report given to Fazal VILLARREAL.
--- NOTE | 2019-03-20 21:30 | NUR ---
NURSE NOTES: pt's bp is 97/57, O2sat is 100%. pt's family at the bedside. will keep monitor pt. Addendum: 03/20/19 at 2241 by TAYLOR SANCHES RN wrong time.
--- NOTE | 2019-03-20 21:30 | NUR ---
NURSE NOTES: Recvd.a transfer from ESTEBAN 64YOF on a Vent.Transfer R/T HYPOTENSION.Placed on Monitor Scope SR,BP checked 103/64 Closely monitored. called see orders CT-chest, pelvis and abd.RAD.TECH made aware.
[2019-03-20] MEDS ORDERED: Omnipaque-300 100ml vial INJ PRN (22:30)
[2019-03-20] MEDS ORDERED: Omnipaque-300 100ml vial INJ SCH (22:30)
--- NOTE | 2019-03-20 22:56 | Surgery Progress Note ---
Surgery Progress Note Subjective Additional Comments labs noted. leukocytosis. new air bed placed for patient sister at bedside. discussed care plan trial diet but high residual and bilious Objective Last 24 Hour Vital Signs Date Time Temp Pulse Resp B/P (MAP) Pulse Ox O2 Delivery O2 Flow Rate FiO2 03/20/19 21:46 92 13 Mechanical Ventilator 35 03/20/19 21:00 85 98/58 03/20/19 20:00 35 03/20/19 20:00 Mechanical Ventilator 03/20/19 19:35 90 16 99 Mechanical Ventilator 35 90 17 35 03/20/19 18:50 91 18 96/67 (77) 98 03/20/19 18:33 92 18 82/48 (59) 98 03/20/19 17:13 103 18 73/49 (57) 98 03/20/19 17:00 110 14 65/43 (50) 100 03/20/19 16:57 107 14 77/50 (59) 100 03/20/19 16:55 106 14 69/49 (56) 100 03/20/19 16:50 106 18 35 03/20/19 16:00 Mechanical Ventilator 03/20/19 16:00 35 03/20/19 15:14 110 03/20/19 14:39 108 15 99 Mechanical Ventilator 35 108 16 35 03/20/19 13:30 99.8 03/20/19 13:16 108 14 35 03/20/19 12:00 35 03/20/19 12:00 Mechanical Ventilator 03/20/19 12:00 97.3 110 14 91/57 (68) 100 03/20/19 11:44 119 03/20/19 11:27 116 16 99 Mechanical Ventilator 35 116 17 35 03/20/19 09:16 105 19 35 03/20/19 09:00 105 110/67 03/20/19 08:00 Mechanical Ventilator 03/20/19 08:00 97.3 103 17 110/67 (81) 98 03/20/19 08:00 35 03/20/19 07:40 102 03/20/19 07:13 101 18 96 Mechanical Ventilator 35 96 20 35 03/20/19 05:14 96 18 35 03/20/19 04:00 98.1 103 19 113/71 (85) 96 03/20/19 04:00 Mechanical Ventilator 03/20/19 04:00 35 03/20/19 03:46 94 03/20/19 02:49 99 19 97 Mechanical Ventilator 35 99 19 35 03/20/19 01:00 99 18 35 03/20/19 00:00 98.1 103 18 101/63 (76) 96 03/19/19 23:42 100 19 98 Mechanical Ventilator 35 100 19 35 03/19/19 23:27 Mechanical Ventilator I&O Intake and Output 03/19/19 03/20/19 19:00 07:00 Intake Total 577 ml 248 ml Output Total 600 ml Balance -23 ml 248 ml Intake Free Water 60 ml 60 ml Tube Feeding 517 ml 188 ml Gastric Drainage Total 600 ml Cardiovascular: RSR Respiratory: clear Abdomen: soft, distended, decreased bowel sounds Extremities: no cyanosis, other Laboratory Tests Test 03/20/19 03:15 White Blood Count 12.9 K/UL (4.8-10.8) H Red Blood Count 4.45 M/UL (4.20-5.40) Hemoglobin 13.9 G/DL (12.0-16.0) Hematocrit 42.2 % (37.0-47.0) Mean Corpuscular Volume 95 FL (80-99) Mean Corpuscular Hemoglobin 31.3 PG (27.0-31.0) H Mean Corpuscular Hemoglobin Concent 33.0 G/DL (32.0-36.0) Red Cell Distribution Width 16.2 % (11.6-14.8) H Platelet Count 441 K/UL (150-450) Mean Platelet Volume 7.2 FL (6.5-10.1) Neutrophils (%) (Auto) 78.9 % (45.0-75.0) H Lymphocytes (%) (Auto) 12.3 % (20.0-45.0) L Monocytes (%) (Auto) 5.5 % (1.0-10.0) Eosinophils (%) (Auto) 2.3 % (0.0-3.0) Basophils (%) (Auto) 1.1 % (0.0-2.0) Sodium Level 137 MMOL/L (136-145) Potassium Level 5.3 MMOL/L (3.5-5.1) H Chloride Level 99 MMOL/L (98-107) Carbon Dioxide Level 22 MMOL/L (21-32) Anion Gap 16 mmol/L (5-15) H Blood Urea Nitrogen 52 mg/dL (7-18) H Creatinine 1.9 MG/DL (0.55-1.30) H Estimat Glomerular Filtration Rate 26.6 mL/min (>60) Glucose Level 168 MG/DL (74-106) H Calcium Level 10.2 MG/DL (8.5-10.1) H Total Bilirubin 0.6 MG/DL (0.2-1.0) Aspartate Amino Transf (AST/SGOT) 29 U/L (15-37) Alanine Aminotransferase (ALT/SGPT) 46 U/L (12-78) Alkaline Phosphatase 269 U/L (46-116) H Total Protein 10.2 G/DL (6.4-8.2) H Albumin 3.6 G/DL (3.4-5.0) Globulin 6.6 g/dL Albumin/Globulin Ratio 0.5 (1.0-2.7) L Plan Problems: (1) Fecal impaction Assessment & Plan: seen by GI and G replaced with GJ can tolerate some j feeds still with significant bilious g tube drainage imaging noted requires bowel regimen intermittent constipation appreciate GI input consideration for surgical J and diverting loop colostomy in future if stable elective discussed with sister (2) Sepsis Assessment & Plan: Cont IV ABx trend labs Rx as written vent feeds Complete assessment of pt's skin completed.. care givers at bedside. Pt has trach and noted to have washcloth intertwined with trach collar. Pt's interpersonal communications professor at bedside and declined for washcloth to be removed during my exam as well. Pt's caregiver was educated coarseness of washcloth is risk to pt's skin and may cause skin breakdown. morning caregiver responded washcloth has been in use for over 10yrs and pt has never had skin breakdown. Skin assessed under and around trach and neck and no erythema or evidence of skin breakdown. Both elbows,both hips ,skin folds of breasts, abd and bilat groin and perineum without erythema or evidence of any skin breakdown. Back buttocks and both heels assessed and is pink without any evidence of skin breakdown. morning caregiver verbalized that previous day pt had red area on L buttocks /ischial region when on left side and similar on right when on right side. sister assured me she has "pictures to prove it". Erythema has now resolved and this was indicated to interpersonal communications professor whom was also invited to assess pt's skin to confirm no redness noted. sister agreed that it had resolved since she last saw her and states it happens during the two hours she is on each side with planned turning. Moisture Barrier paste applied to perineum and buttocks. Optifoam drsgs applied as prevention to both hips ,Sacral area and both heels. Pt was positioned on her side with pillows and both heels floated off mattress. Pt is on an APM/ARCELIA mattress overlay due to pt identified as high risk for skin breakdown ;Francesco score of 9.Pt is being repositioned as per protocols and per pt's tolerance. patient currently without skin breakdown has padding placed with dressing on right hand IV Site. moisture noted and recommend removal / change but even during my examination of area the caregiver physically did not allow my to do so or even appropriately evaluate and stated that it is there to ensure IV line does not dislodge as she is a very hard IV stick. I had long discussion with family and caregiver about current care and plans. all questions answered. on air mattress Tx.Plan: Apply Moisture Barrier Paste to skin folds and buttocks with each perineal care. Cover sacral area with Optifoam drsg . Change every 3 days and prn. Apply Cavilon Skin Barrier to both hips. Cover each hip with Optifoam drsg. Change every 7 days and prn. Apply Cavilon Skin Barrier to both heels. Cover each heel with Optifoam drsg. Change every 7 days and prn. Reposition at least every 2hours or as tolerated. Off-load heels with pillow. Artemio Jones Mar 20, 2019 22:56
--- NOTE | 2019-03-20 23:00 | NUR ---
NURSE NOTES: Barium sulfate admin.via GT prep.for poss.CT.
[2019-03-20 23:03] LABS: BASOPHILS % (AUTO) 1.5 % (0.0-2.0); EOSINOPHILS % (AUTO) 2.2 % (0.0-3.0); HEMATOCRIT 37.9 % (37.0-47.0); HEMOGLOBIN 12.9 G/DL (12.0-16.0); LYMPHOCYTES % (AUTO) 17.5 % (20.0-45.0); MEAN CORPUSCULAR VOLUME 92 FL (80-99); MONOCYTES % (AUTO) 5.3 % (1.0-10.0); NEUTROPHILS % (AUTO) 73.4 % (45.0-75.0); PLATELET COUNT 377 K/UL (150-450); RED CELL DISTRIBUTION WIDTH 16.3 % (11.6-14.8); WHITE BLOOD COUNT 11.5 K/UL (4.8-10.8)
[2019-03-20 23:17] LABS: ANION GAP 15 mmol/L (5-15); BLOOD UREA NITROGEN 27 mg/dL (7-18); CALCIUM 9.1 MG/DL (8.5-10.1); CARBON DIOXIDE 20 MMOL/L (21-32); CHLORIDE 108 MMOL/L (98-107); CREATININE 1.3 MG/DL (0.55-1.30); POTASSIUM 3.4 MMOL/L (3.5-5.1); SODIUM 143 MMOL/L (136-145)
[2019-03-20 23:22] LABS: ALANINE AMINOTRANSFERASE 39 U/L (12-78); ALBUMIN 3.1 G/DL (3.4-5.0); ALBUMIN/GLOBULIN RATIO 0.6 (1.0-2.7); ALKALINE PHOSPHATASE 240 U/L (46-116); ASPARTATE AMINO TRANSFERASE 30 U/L (15-37); BILIRUBIN,TOTAL 0.5 MG/DL (0.2-1.0)
[2019-03-21] VITALS (22 sets, daily range): BP systolic 86–150; BP diastolic 46–99
--- NOTE | 2019-03-21 00:10 | NUR ---
NURSE NOTES: BP stable.FSBS-139.Scope SR.Afebrile.Repositioned kept comfortable.Suctioned.Sat.-100%.Awaits for poss.CT.
[2019-03-21] MEDS: NovoLOG Insulin Flexpen SUBQ SCH ×4 (00:25→18:00)
--- NOTE | 2019-03-21 01:30 | NUR ---
NURSE NOTES: carlos,patient's sister talked to and explained that patient will go for ct chest/abd and pelvis to scanner in the trailer outside the hospital, wants to use their own portable ventilator for transport, referred to regis, respiratory therapist,she said they are not allowed to use ventilator from outside, if patient has to go to ct, she'll be bagged on transport to ct, also [facility] supervisor,sabina made aware of the issue and she said also that,their machine has to be cleared by biomed as well. carlos expressed concern about the safety of bagging the patient going to ct.jet from radiology also came up and explained to carlos in length the details of the scanner in the trailer like the space, suppl[es, how many people can be there.
[2019-03-21] MEDS: Vigamox Opth Soln 3ml RIGHT EYE SCH ×2 (01:44→21:42)
[2019-03-21] MEDS: SYSTANE ULTRA OPHTHALM SCH ×5 (01:44→21:00)
[2019-03-21] MEDS: Lacri-Lube Opth Oint 3.5gm RIGHT EYE SCH ×5 (01:46→21:00)
--- NOTE | 2019-03-21 02:30 | NUR ---
NURSE NOTES: dr. mendes called and explained to him regarding Anatoly's concerns of doing the ct scan of chest/abd/pelvis at this time, reported to him the results of cbc and cmp done at 2200 on 03/20/19, he said it's ok to do it in am
[2019-03-21] MEDS: Acetaminophen 650 MG SUPP RECTAL PRN (03:00)
[2019-03-21] MEDS: Sodium Chloride 3% 4ml Nebul Soln INH SCH ×7 (03:00→23:00)
[2019-03-21] MEDS: Albuterol ud Inhalation HHN SCH ×4 (03:28→23:32)
[2019-03-21] MEDS: Ipratropium 0.02% Inh Soln 2.5ml UD HHN SCH ×3 (03:28→10:56)
--- NOTE | 2019-03-21 03:31 | NUR ---
NURSE NOTES: jet from radiology said that the oral contrast is still good as long as the ct scan will be done before 12 noon today (03/21/19
--- NOTE | 2019-03-21 04:20 | NUR ---
NURSE NOTES: Bathe,Suctioned.Neuro status same.VSS.Scope rhythm same.Afebrile.Ok to Have CT chest,abd.and pelvis in am.RAD.tech.Made aware.
--- NOTE | 2019-03-21 05:41 | NUR ---
RESPIRATORY NOTE: Pt. family requested to use patient's own home vent to transfer pt. to CT scan and was notified that we are not trained and competent on their home vent. Patient family refused to use Ambu bag to transfer patient. Charge Nurse PHIL Hamilton, purchasing and claims supervisor Kaelyn, and asset protection manager Malcolm were notified of family's concern. Pt.
[2019-03-21] MEDS: Metoclopramide 10mg/2ml Inj IVP SCH ×3 (05:48→22:33)
[2019-03-21] MEDS: Pantoprazole Inj IVP SCH (05:58)
--- NOTE | 2019-03-21 06:16 | NUR ---
NURSE NOTES: received pt from Karla VILLARREAL., pt is receiving NS on bolus. family member at the bedside. G tube is intact. side rails up, bed locked, positioned at Trendelenburg position due to low BP. call light within reach. explained and encouraged pt's family member questions,and answered all questions that were asked. will monitor pt closely. Addendum: 03/21/19 at 0623 by TAYLOR SANCHES RN wrong time. its for 193 on 03/20/19
--- NOTE | 2019-03-21 07:09 | NUR ---
RESPIRATORY NOTE: received pt on current vent settings, no resp distress noted at this time. caregiver at bedside. no suctioning for pt at this time as well and refused one ordered scheduled treatment. pt is vent dependent and trach with portex8 bivona and cuffed. trach in placee secured via trach tie and trach guard. no visible redness or skin wounds around neck/stoma. gauze has already been in place around neck area. alarms are set and audible with ambu bag at bedside. will cont to monitor throughout the day Addendum: 03/21/19 at 0746 by ALEXANDRO MAHARAJ RT caregiver request for sxn and sxn finley change post breathing tx
--- NOTE | 2019-03-21 07:10 | NUR ---
NURSE NOTES: Received pt from PHIL Diehl. pt is obtunded. trach cuffed shiley 8.0 to vent. Vent settings: ac 12/TV 450/35%/+5, spo2 100%. G/J-tube. J tube unclogged, patent and flushed. 40cc residual noted from G-tube; greenish in color. HOB 35 degrees. RH 22G running D5NS@40cc/hr. L subclavian portacath noted. SR. BP stable. Afebrile. Pt is anuric. Bed locked, alarmed and in lowest position.
--- NOTE | 2019-03-21 07:20 | NUR ---
NURSE NOTES: Received pt from PHIL Cardona. Pt is in bed with no signs of distress with family and friend at bedside. Pt is on vent and tube feeding as prescribed. Skin issues noted, on electronic device monitor, with IV sites intact and patent. Labs noted and notified. Addendum: 03/21/19 at 1946 by Lb Blanco RN Monsivais serg. 191903-21-2019
--- NOTE | 2019-03-21 07:43 | NUR ---
HAND-OFF: Report given to PAIGE ALVARES RN.
--- NOTE | 2019-03-21 08:15 | General Progress Note ---
Assessment/Plan Problem List: (1) Tracheostomy malfunction ICD Codes: J95.03 - Malfunction of tracheostomy stoma SNOMED: 08511628 (2) Acute renal failure ICD Codes: N17.9 - Acute kidney failure, unspecified SNOMED: 33904528 (3) Pericardial effusion ICD Codes: I31.3 - Pericardial effusion (noninflammatory) SNOMED: 220656861 (4) Sepsis ICD Codes: A41.9 - Sepsis, unspecified organism SNOMED: 33199628 (5) Pneumonia ICD Codes: J18.9 - Pneumonia, unspecified organism SNOMED: 918396611 (6) Tracheostomy malfunction ICD Codes: J95.03 - Malfunction of tracheostomy stoma SNOMED: 57074246 (7) Hypotension ICD Codes: I95.9 - Hypotension, unspecified SNOMED: 90522136 (8) Fecal impaction ICD Codes: K56.41 - Fecal impaction SNOMED: 65875856 Status: stable Assessment/Plan: GI follow up monitor residuals g tube to LIS abx bowel regime monitor renal fxn/labs skin care vent support resp care monitor secretions Subjective ROS Limited/Unobtainable: Yes Constitutional: Reports: malaise, weakness HEENT: Reports: no symptoms Cardiovascular: Reports: no symptoms Respiratory: Reports: shortness of breath, sputum Gastrointestinal/Abdominal: Reports: difficulty swallowing Genitourinary: Reports: no symptoms Neurologic/Psychiatric: Reports: pre-existing deficit Endocrine: Reports: no symptoms Hematologic/Lymphatic: Reports: anemia Allergies: Coded Allergies: OLANZAPINE (Verified Allergy, Severe, RESP FAILURE, 11/25/13) VANCOMYCIN (Verified Allergy, Severe, 11/25/13) PIPERACILLIN (Verified Allergy, Intermediate, HIVES, 11/25/13) TAZOBACTAM (Verified Allergy, Intermediate, HIVES, 11/25/13) All Systems: reviewed and negative except above Subjective transferred to icu for hypotension. better after ivf bolus. congested. J tube clogged Objective Last 24 Hour Vital Signs Date Time Temp Pulse Resp B/P (MAP) Pulse Ox O2 Delivery O2 Flow Rate FiO2 03/21/19 07:03 87 15 100 Mechanical Ventilator 35 87 16 35 03/21/19 07:00 85 14 118/54 (75) 100 03/21/19 06:00 80 14 114/60 (78) 100 03/21/19 05:15 77 15 Mechanical Ventilator 35 03/21/19 05:00 79 14 86/51 (63) 100 03/21/19 04:00 97.6 79 15 98/46 (63) 100 03/21/19 04:00 77 03/21/19 04:00 35 03/21/19 04:00 Mechanical Ventilator 03/21/19 03:30 96.9 03/21/19 03:29 83 14 99 Mechanical Ventilator 35 84 15 35 03/21/19 03:00 88 16 124/69 (87) 99 03/21/19 02:00 87 15 109/59 (76) 99 03/21/19 01:15 87 14 Mechanical Ventilator 35 03/21/19 01:00 88 15 100/62 (75) 99 03/21/19 00:00 80 03/21/19 00:00 97.3 80 14 112/60 (77) 100 03/21/19 00:00 35 03/21/19 00:00 Mechanical Ventilator 03/20/19 23:28 82 15 99 Mechanical Ventilator 35 81 15 35 03/20/19 22:30 84 14 98/61 (73) 100 03/20/19 22:00 85 14 100/54 (69) 100 03/20/19 21:46 92 13 Mechanical Ventilator 35 03/20/19 21:30 97.2 82 14 103/64 (77) 100 03/20/19 21:30 82 03/20/19 21:00 85 98/58 03/20/19 20:00 35 03/20/19 20:00 Mechanical Ventilator 03/20/19 19:54 97.3 101 18 94/54 (67) 100 03/20/19 19:35 90 16 99 Mechanical Ventilator 35 90 17 35 03/20/19 19:11 93 03/20/19 18:50 91 18 96/67 (77) 98 03/20/19 18:33 92 18 82/48 (59) 98 03/20/19 17:13 103 18 73/49 (57) 98 03/20/19 17:00 110 14 65/43 (50) 100 03/20/19 16:57 107 14 77/50 (59) 100 03/20/19 16:55 106 14 69/49 (56) 100 03/20/19 16:50 106 18 35 03/20/19 16:00 Mechanical Ventilator 03/20/19 16:00 35 03/20/19 15:14 110 03/20/19 14:39 108 15 99 Mechanical Ventilator 35 108 16 35 03/20/19 13:30 99.8 03/20/19 13:16 108 14 35 03/20/19 12:00 35 03/20/19 12:00 Mechanical Ventilator 03/20/19 12:00 97.3 110 14 91/57 (68) 100 03/20/19 11:44 119 03/20/19 11:27 116 16 99 Mechanical Ventilator 35 116 17 35 03/20/19 09:16 105 19 35 03/20/19 09:00 105 110/67 Intake and Output 03/20/19 03/21/19 18:59 06:59 Intake Total 1094 ml 1200 ml Output Total 1000 ml Balance 94 ml 1200 ml IV Total 1000 ml 1200 ml Tube Feeding 94 ml Hemodialysis UF 1000 ml Laboratory Tests 03/20/19 22:02: Sodium Level 143, Potassium Level 3.4L, Chloride Level 108H, Carbon Dioxide Level 20L, Anion Gap 15, Blood Urea Nitrogen 27H, Creatinine 1.3, Estimat Glomerular Filtration Rate 41.3, Glucose Level 147H, Calcium Level 9.1, Total Bilirubin 0.5, Aspartate Amino Transf (AST/SGOT) 30, Alanine Aminotransferase ( ALT/SGPT) 39, Alkaline Phosphatase 240H, Total Protein 8.6H, Albumin 3.1L, Globulin 5.5, Albumin/Globulin Ratio 0.6L 03/20/19 22:52: White Blood Count 11.5H, Red Blood Count 4.10L, Hemoglobin 12.9, Hematocrit 37.9 , Mean Corpuscular Volume 92, Mean Corpuscular Hemoglobin 31.5H, Mean Corpuscular Hemoglobin Concent 34.1, Red Cell Distribution Width 16.3H, Platelet Count 377, Mean Platelet Volume 6.4L, Neutrophils (%) (Auto) 73.4, Lymphocytes (%) (Auto) 17.5L, Monocytes (%) (Auto) 5.3, Eosinophils (%) (Auto) 2.2, Basophils (%) (Auto) 1.5 Height (Feet): 5 Height (Inches): 4.00 Weight (Pounds): 154 Objective General Appearance: WD/WN, alert Neck: supple Cardiovascular: regular rhythm Respiratory/Chest: chest wall non-tender, rhonchi - bilaterally Abdomen: normal bowel sounds, non tender, soft, no organomegaly Edema: no edema noted Arm (L), no edema noted Arm (R), no edema noted Leg (L), no edema noted Leg (R), no edema noted Pedal (L), no edema noted Pedal (R), no edema noted Generalized Neurologic: disoriented, unresponsive, aphasia Pito Jones MD Mar 21, 2019 08:15
[2019-03-21] MEDS: Carvedilol 12.5mg tab GT SCH ×3 (09:00→21:25)
--- NOTE | 2019-03-21 09:00 | NUR ---
NURSE NOTES: Turned and repositioned. Oral care done. Kept dry and clean. No signs of distress.
[2019-03-21] MEDS: Nephrovite tab (Rena-Vite) GT SCH (09:31)
--- NOTE | 2019-03-21 10:39 | Infectious Diseases Prog Note ---
Assessment/Plan Assessment/Plan antibiotics : cefepime 03.18.19 - A 1. pseudomonas pneumonia 2. leucocytosis improving 3. respiratory failure 4. diabetes mellitus 5. hypertension 6. anoxic encephalopathy P 1. continue cefepime 6 more days 2. will follow up cultures Subjective ROS Limited/Unobtainable: Yes Allergies: Coded Allergies: OLANZAPINE (Verified Allergy, Severe, RESP FAILURE, 11/25/13) VANCOMYCIN (Verified Allergy, Severe, 11/25/13) PIPERACILLIN (Verified Allergy, Intermediate, HIVES, 11/25/13) TAZOBACTAM (Verified Allergy, Intermediate, HIVES, 11/25/13) Objective Vital Signs Last 24 Hour Vital Signs Date Time Temp Pulse Resp B/P (MAP) Pulse Ox O2 Delivery O2 Flow Rate FiO2 03/21/19 09:00 79 101/54 03/21/19 08:55 79 14 35 03/21/19 07:03 87 15 100 Mechanical Ventilator 35 87 16 35 03/21/19 07:00 85 14 118/54 (75) 100 03/21/19 06:00 80 14 114/60 (78) 100 03/21/19 05:15 77 15 Mechanical Ventilator 35 03/21/19 05:00 79 14 86/51 (63) 100 03/21/19 04:00 97.6 79 15 98/46 (63) 100 03/21/19 04:00 77 03/21/19 04:00 35 03/21/19 04:00 Mechanical Ventilator 03/21/19 03:30 96.9 03/21/19 03:29 83 14 99 Mechanical Ventilator 35 84 15 35 03/21/19 03:00 88 16 124/69 (87) 99 03/21/19 02:00 87 15 109/59 (76) 99 03/21/19 01:15 87 14 Mechanical Ventilator 35 03/21/19 01:00 88 15 100/62 (75) 99 03/21/19 00:00 80 03/21/19 00:00 97.3 80 14 112/60 (77) 100 03/21/19 00:00 35 03/21/19 00:00 Mechanical Ventilator 03/20/19 23:28 82 15 99 Mechanical Ventilator 35 81 15 35 03/20/19 22:30 84 14 98/61 (73) 100 03/20/19 22:00 85 14 100/54 (69) 100 9/26/19 21:46 92 13 Mechanical Ventilator 35 03/20/19 21:30 97.2 82 14 103/64 (77) 100 03/20/19 21:30 82 03/20/19 21:00 85 98/58 03/20/19 20:00 35 03/20/19 20:00 Mechanical Ventilator 03/20/19 19:54 97.3 101 18 94/54 (67) 100 03/20/19 19:35 90 16 99 Mechanical Ventilator 35 90 17 35 03/20/19 19:11 93 03/20/19 18:50 91 18 96/67 (77) 98 03/20/19 18:33 92 18 82/48 (59) 98 03/20/19 17:13 103 18 73/49 (57) 98 03/20/19 17:00 110 14 65/43 (50) 100 03/20/19 16:57 107 14 77/50 (59) 100 03/20/19 16:55 106 14 69/49 (56) 100 03/20/19 16:50 106 18 35 03/20/19 16:00 Mechanical Ventilator 03/20/19 16:00 35 03/20/19 15:14 110 03/20/19 14:39 108 15 99 Mechanical Ventilator 35 108 16 35 03/20/19 13:30 99.8 03/20/19 13:16 108 14 35 03/20/19 12:00 35 03/20/19 12:00 Mechanical Ventilator 03/20/19 12:00 97.3 110 14 91/57 (68) 100 03/20/19 11:44 119 03/20/19 11:27 116 16 99 Mechanical Ventilator 35 116 17 35 Height (Feet): 5 Height (Inches): 4.00 Weight (Pounds): 154 HEENT: status post trach Respiratory/Chest: lungs clear Cardiovascular: normal rate, regular rhythm, no gallop/murmur Abdomen: soft, non tender, other - GT Extremities: no edema Laboratory Tests Test 03/20/19 22:02 03/20/19 22:52 Sodium Level 143 MMOL/L (136-145) Potassium Level 3.4 MMOL/L (3.5-5.1) L Chloride Level 108 MMOL/L (98-107) H Carbon Dioxide Level 20 MMOL/L (21-32) L Anion Gap 15 mmol/L (5-15) Blood Urea Nitrogen 27 mg/dL (7-18) H Creatinine 1.3 MG/DL (0.55-1.30) Estimat Glomerular Filtration Rate 41.3 mL/min (>60) Glucose Level 147 MG/DL (74-106) H Calcium Level 9.1 MG/DL (8.5-10.1) Total Bilirubin 0.5 MG/DL (0.2-1.0) Aspartate Amino Transf (AST/SGOT) 30 U/L (15-37) Alanine Aminotransferase (ALT/SGPT) 39 U/L (12-78) Alkaline Phosphatase 240 U/L (46-116) H Total Protein 8.6 G/DL (6.4-8.2) H Albumin 3.1 G/DL (3.4-5.0) L Globulin 5.5 g/dL Albumin/Globulin Ratio 0.6 (1.0-2.7) L White Blood Count 11.5 K/UL (4.8-10.8) H Red Blood Count 4.10 M/UL (4.20-5.40) L Hemoglobin 12.9 G/DL (12.0-16.0) Hematocrit 37.9 % (37.0-47.0) Mean Corpuscular Volume 92 FL (80-99) Mean Corpuscular Hemoglobin 31.5 PG (27.0-31.0) H Mean Corpuscular Hemoglobin Concent 34.1 G/DL (32.0-36.0) Red Cell Distribution Width 16.3 % (11.6-14.8) H Platelet Count 377 K/UL (150-450) Mean Platelet Volume 6.4 FL (6.5-10.1) L Neutrophils (%) (Auto) 73.4 % (45.0-75.0) Lymphocytes (%) (Auto) 17.5 % (20.0-45.0) L Monocytes (%) (Auto) 5.3 % (1.0-10.0) Eosinophils (%) (Auto) 2.2 % (0.0-3.0) Basophils (%) (Auto) 1.5 % (0.0-2.0) Current Medications Medications (Trade) Dose Ordered Sig/Alex Route PRN Reason Start Time Stop Time Status Last Admin Dose Admin Acetaminophen (Tylenol) 975 mg EVERY 8 HOURS PRN RECTAL For Pain 03/19/19 22:00 04/18/19 21:59 03/21/19 03:00 Acetaminophen (Tylenol) 1,000 mg Q6H PRN GT Mild Pain/Temp > 100.5 03/15/19 12:45 04/10/19 16:29 03/19/19 16:07 Albuterol Sulfate (Proventil) 2.5 mg Q4HRT HHN 03/16/19 19:00 03/21/19 14:59 03/21/19 07:02 Artificial Tears (Lacri-Lube) 1 applic Q4HR RIGHT EYE 03/15/19 13:00 04/14/19 12:59 03/21/19 10:27 Barium Sulfate (Readi-Cat 2) 450 ml NOW PRN ORAL Radiology Procedure 03/20/19 22:30 03/22/19 22:17 Barium Sulfate (Readi-Cat 2) 450 ml NOW PRN ORAL Radiology Procedure 03/20/19 22:30 03/22/19 22:17 Carvedilol (Coreg) 12.5 mg EVERY 12 HOURS GT 03/11/19 21:00 04/10/19 20:59 03/16/19 09:21 Cefepime HCl 1 gm/ Dextrose 55 ml @ 110 mls/hr Q24H IVPB 03/18/19 13:00 03/25/19 12:59 03/20/19 13:25 Chlorhexidine Gluconate (Rubina-Hex 2%) 1 applic DAILY@2000 TOPIC 03/12/19 20:00 04/11/19 19:59 03/20/19 20:33 Dextrose (Dextrose 50%) 25 ml Q30M PRN IV Hypoglycemia 03/11/19 17:15 04/10/19 17:14 Dextrose (Dextrose 50%) 50 ml Q30M PRN IV Hypoglycemia 03/11/19 17:15 04/10/19 17:14 Dextrose/Sodium Chloride 1,000 ml @ 40 mls/hr Q24H IV 03/20/19 16:10 04/19/19 16:09 03/20/19 16:56 Epoetin Amadou (Epoetin Amadou(ESRD on dialysis)) 10,000 unit ONCE A WEEK SUBQ 03/19/19 21:00 04/18/19 20:59 Insulin Aspart (NovoLOG) EVERY 6 HOURS SUBQ 03/11/19 18:00 04/10/19 17:59 03/21/19 05:58 Insulin Detemir (Levemir) 15 units BEDTIME SUBQ 03/15/19 21:00 04/14/19 20:59 03/19/19 21:25 Iohexol (OMNIPAQUE-300 100ml) 100 ml NOW PRN INJ Radiology Procedure 03/20/19 22:30 03/22/19 22:17 Ipratropium [place] (Atrovent) 500 mcg Q4HRT HHN 03/16/19 19:00 03/21/19 14:59 03/21/19 07:02 Levothyroxine Sodium (Synthroid) 200 mcg QHS GT 03/11/19 21:00 04/10/19 20:59 03/19/19 21:16 Metoclopramide HCl (Reglan) 10 mg EVERY 8 HOURS IVP 03/19/19 22:00 04/18/19 21:59 03/21/19 05:48 Metoclopramide HCl (Reglan) 10 mg Q8H PRN IVP Nausea & Vomiting 03/20/19 11:00 04/19/19 10:59 03/20/19 10:54 Morphine Sulfate (Morphine Sulfate) 2 mg Q3H PRN IVP severe pain 03/16/19 16:45 03/23/19 16:29 03/19/19 01:34 Moxifloxacin HCl (Vigamox) 1 drop Q12HR RIGHT EYE 03/16/19 21:00 03/23/19 20:59 03/21/19 01:44 Pantoprazole (Protonix) 40 mg DAILY@0630 IVP 03/20/19 06:30 04/19/19 06:29 03/21/19 05:58 Patient Own Medication (Patient's Own Med) 1 ea DAILYPRN PRN RECTAL constipation 03/11/19 21:15 04/10/19 21:14 03/19/19 12:15 Patient Own Medication (Patient's Own Med) 2 ea Q4HR OPHTHALM 03/17/19 13:00 04/16/19 12:59 03/21/19 10:27 Polyethylene Glycol (Miralax) 17 gm BEDTIME ORAL 03/17/19 21:00 04/16/19 20:59 03/19/19 21:16 Sodium Chloride (Sodium Chloride Dey-Nicolas 3%) 4 ml Q4HRT INH 03/17/19 07:00 04/16/19 06:59 03/19/19 19:44 Vitamin B Complex/ Vit C/Folic Acid (Nephrovite) 1 tab DAILY GT 03/12/19 09:00 04/11/19 08:59 03/21/19 09:31 Fabio Brown MD Mar 21, 2019 10:39
[2019-03-21] MEDS ORDERED: Ipratropium 0.02% Inh Soln 2.5ml UD HHN PRN (11:00)
[2019-03-21] MEDS ORDERED: Albuterol ud Inhalation HHN SCH (11:00)
--- NOTE | 2019-03-21 11:24 | NUR ---
RD ASSESSMENT & RECOMMENDATIONS SEE CARE ACTIVITY FOR COMPLETE ASSESSMENT DAILY ESTIMATED NEEDS: Needs based on Critical care, DIRECTOR SCRIPT TF, HD/ 51.5kg abw 22-31 kcals/kg 3090-1624 total kcals 1.2-2 g protein/kg 62-103 g total protein 20-22 mL/kg 5478-1960 total fluid mLs NUTRITION DIAGNOSIS: 1) Increased kcal/prot needs R/T ESRD as evidenced by pt is HD dependent. 2) Swallowing difficulty R/T respiratory status as evidenced by pt vent dep via trachs, s/p GJ conversion, on Jtube feedings. 3) Altered nutrition related lab values R/T renal dysfunction, electrolyte imbalance, diabetes as evidenced by critically low K (2.7-> now 3.4), elev creat (1.8-> 1.3), elev POC glu ([phone]). CURRENT TF: Glucerna 1.5 @47 x22 hrs ENTERAL NUTRITION RECOMMENDATIONS: Glucerna 1.5 @ 47ml/hr x 22 hrs to provide 1034ml, 1551kcal, 85g pro, 785ml free water * As able, restart Glucerna 1.5 -> TF clogging on Nepro per RN, K consistently low, Phos wnl, DM * Initiate Glucerna 1.5 @ 27ml/hr x 6hrs, advance as tolerated to goal. * Hold 1 hr before and after Synthroid med * HOB >45 degrees/Free H20 flushes per MD IF PT IS TO REMAIN ON NEPRO, continue bolus feeding of 8oz Nepro @ B & L & D + 4oz Nepro @ HS to provide 829ml, 1487kcal, 67g prot ---- ADDITIONAL RECOMMENDATIONS: 1) RECALIBRATED bedscale wt for accurate CBW 2) Monitor lytes, replete as needed 3) Monitor TF tolerance: admitted w/ c/o elev TF residuals -> s/p GJ conversion, no residual reported at this time 4) W/ TF change to Glucerna 1.5, monitor lytes closely, need to switch back to Nepro (03/20 labs: K 3.4, Creat 1.3, BUN 27)
--- NOTE | 2019-03-21 12:00 | NUR ---
NURSE NOTES: Per Dr. Hu, he will speak with sister to discuss about CT. No decisions yet. Turned and repositioned. Oral care done. Care givers and sister at bedside. Pt has no s/sx of distress. BP stable, afebrile.
--- NOTE | 2019-03-21 12:29 | NUR ---
TREATMENT MANAGERADVERTISING COPY WRITER SI; RESP FAILURE TRACH/VENT DEPENDENT,FECAL IMPACTION T. 97.6 HR 80 RR 14 B/P 86/51 AC 12 TV 450 FIO2 35% PEEP 5 IS: IVF D4NS @ 40ML/HR PROTONIX IV REGLAN IV CEFEPIME IV VIGAMOX GT ICU STATUS
[2019-03-21] MEDS: Cefepime 1gm/D5W 55ml IVPB SCH ×2 (12:45)
--- NOTE | 2019-03-21 14:06 | Pulmonology Progress Note ---
Assessment/Plan Assessment/Plan respiratory failure chronic encephalopathy trach CRF GT constipation increase in residual hypertension diabetes s/p GT-->JT conversion intolerance of meds gastroparesis + pseudomonas hypotension ? sepsis or fluid related PLAN ID followup defer antibiotics to ID currently hemodynamics improved vent as is/ on full support feeds as able/ gi to assist sister does not want JT at this time reglan IV routine complete cefepime monitor feeds and residuals gt to suction HD and monitor lytes and monitor fluid status skin care and off load monitor hemodynamics chronic care-without change monitor sugars not ready for dc yet support as able full code medications/laboratory data/nursing notes/ICU care reviewed in detail note reviewed and edited care discussed with RN and RT ICU time spent 42 minutes Subjective ROS Limited/Unobtainable: Yes Allergies: Coded Allergies: OLANZAPINE (Verified Allergy, Severe, RESP FAILURE, 11/25/13) VANCOMYCIN (Verified Allergy, Severe, 11/25/13) PIPERACILLIN (Verified Allergy, Intermediate, HIVES, 11/25/13) TAZOBACTAM (Verified Allergy, Intermediate, HIVES, 11/25/13) Subjective care noted and reviewed hypotensive last night bolus NS with good results transferred to ICU was planned to dc home but cancelled d/w all consultants and sister in detail Objective Last 24 Hour Vital Signs Date Time Temp Pulse Resp B/P (MAP) Pulse Ox O2 Delivery O2 Flow Rate FiO2 03/21/19 12:55 79 14 35 03/21/19 11:37 81 14 100 Mechanical Ventilator 35 03/21/19 10:54 81 14 100 Mechanical Ventilator 35 78 14 35 03/21/19 09:00 79 101/54 03/21/19 08:55 79 14 35 03/21/19 08:00 Mechanical Ventilator 03/21/19 08:00 35 03/21/19 07:03 87 15 100 Mechanical Ventilator 35 87 16 35 03/21/19 07:00 85 14 118/54 (75) 100 03/21/19 06:00 80 14 114/60 (78) 100 03/21/19 05:15 77 15 Mechanical Ventilator 35 03/21/19 05:00 79 14 86/51 (63) 100 03/21/19 04:00 97.6 79 15 98/46 (63) 100 03/21/19 04:00 77 03/21/19 04:00 35 03/21/19 04:00 Mechanical Ventilator 03/21/19 03:30 96.9 03/21/19 03:29 83 14 99 Mechanical Ventilator 35 84 15 35 03/21/19 03:00 88 16 124/69 (87) 99 03/21/19 02:00 87 15 109/59 (76) 99 03/21/19 01:15 87 14 Mechanical Ventilator 35 03/21/19 01:00 88 15 100/62 (75) 99 03/21/19 00:00 80 03/21/19 00:00 97.3 80 14 112/60 (77) 100 03/21/19 00:00 35 03/21/19 00:00 Mechanical Ventilator 03/20/19 23:28 82 15 99 Mechanical Ventilator 35 81 15 35 03/20/19 22:30 84 14 98/61 (73) 100 03/20/19 22:00 85 14 100/54 (69) 100 03/20/19 21:46 92 13 Mechanical Ventilator 35 03/20/19 21:30 97.2 82 14 103/64 (77) 100 03/20/19 21:30 82 03/20/19 21:00 85 98/58 03/20/19 20:00 35 03/20/19 20:00 Mechanical Ventilator 03/20/19 19:54 97.3 101 18 94/54 (67) 100 03/20/19 19:35 90 16 99 Mechanical Ventilator 35 90 17 35 03/20/19 19:11 93 03/20/19 18:50 91 18 96/67 (77) 98 03/20/19 18:33 92 18 82/48 (59) 98 03/20/19 17:13 103 18 73/49 (57) 98 03/20/19 17:00 110 14 65/43 (50) 100 03/20/19 16:57 107 14 77/50 (59) 100 03/20/19 16:55 106 14 69/49 (56) 100 03/20/19 16:50 106 18 35 03/20/19 16:00 Mechanical Ventilator 03/20/19 16:00 35 03/20/19 15:14 110 03/20/19 14:39 108 15 99 Mechanical Ventilator 35 108 16 35 Intake and Output 03/20/19 03/21/19 19:00 07:00 Intake Total 1094 ml 1240 ml Output Total 1000 ml Balance 94 ml 1240 ml IV Total 1000 ml 1240 ml Tube Feeding 94 ml Hemodialysis UF 1000 ml Objective WDWN NAD trach poor LOC reduced breath sounds bilaterally with occasional rhonchi [id number] without MRG NABS nontender no HSM no CCE nonfocal poorly responsive at present skin exam noted gt feeds Laboratory Tests 03/20/19 22:02: Sodium Level 143, Potassium Level 3.4L, Chloride Level 108H, Carbon Dioxide Level 20L, Anion Gap 15, Blood Urea Nitrogen 27H, Creatinine 1.3, Estimat Glomerular Filtration Rate 41.3, Glucose Level 147H, Calcium Level 9.1, Total Bilirubin 0.5, Aspartate Amino Transf (AST/SGOT) 30, Alanine Aminotransferase ( ALT/SGPT) 39, Alkaline Phosphatase 240H, Total Protein 8.6H, Albumin 3.1L, Globulin 5.5, Albumin/Globulin Ratio 0.6L 03/20/19 22:52: White Blood Count 11.5H, Red Blood Count 4.10L, Hemoglobin 12.9, Hematocrit 37.9 , Mean Corpuscular Volume 92, Mean Corpuscular Hemoglobin 31.5H, Mean Corpuscular Hemoglobin Concent 34.1, Red Cell Distribution Width 16.3H, Platelet Count 377, Mean Platelet Volume 6.4L, Neutrophils (%) (Auto) 73.4, Lymphocytes (%) (Auto) 17.5L, Monocytes (%) (Auto) 5.3, Eosinophils (%) (Auto) 2.2, Basophils (%) (Auto) 1.5 Current Medications Medications (Trade) Dose Ordered Sig/Alex Route PRN Reason Start Time Stop Time Status Last Admin Dose Admin Acetaminophen (Tylenol) 975 mg EVERY 8 HOURS PRN RECTAL For Pain 03/19/19 22:00 04/18/19 21:59 03/21/19 03:00 Acetaminophen (Tylenol) 1,000 mg Q6H PRN GT Mild Pain/Temp > 100.5 03/15/19 12:45 04/10/19 16:29 03/19/19 16:07 Albuterol Sulfate (Proventil) 2.5 mg Q4HRT HHN 03/16/19 19:00 03/21/19 14:59 03/21/19 10:56 Artificial Tears (Lacri-Lube) 1 applic Q4HR RIGHT EYE 03/15/19 13:00 04/14/19 12:59 03/21/19 12:46 Barium Sulfate (Readi-Cat 2) 450 ml NOW PRN ORAL Radiology Procedure 03/20/19 22:30 03/22/19 22:17 Barium Sulfate (Readi-Cat 2) 450 ml NOW PRN ORAL Radiology Procedure 03/20/19 22:30 03/22/19 22:17 Carvedilol (Coreg) 12.5 mg EVERY 12 HOURS GT 03/11/19 21:00 04/10/19 20:59 03/16/19 09:21 Cefepime HCl 1 gm/ Dextrose 55 ml @ 110 mls/hr Q24H IVPB 03/18/19 13:00 03/25/19 12:59 03/21/19 12:45 Chlorhexidine Gluconate (Rubina-Hex 2%) 1 applic DAILY@2000 TOPIC 03/12/19 20:00 04/11/19 19:59 03/20/19 20:33 Dextrose (Dextrose 50%) 25 ml Q30M PRN IV Hypoglycemia 03/11/19 17:15 04/10/19 17:14 Dextrose (Dextrose 50%) 50 ml Q30M PRN IV Hypoglycemia 03/11/19 17:15 04/10/19 17:14 Dextrose/Sodium Chloride 1,000 ml @ 40 mls/hr Q24H IV 03/20/19 16:10 04/19/19 16:09 03/20/19 16:56 Epoetin Amadou (Epoetin Amadou(ESRD on dialysis)) 10,000 unit ONCE A WEEK SUBQ 03/19/19 21:00 04/18/19 20:59 Insulin Aspart (NovoLOG) EVERY 6 HOURS SUBQ 03/11/19 18:00 04/10/19 17:59 03/21/19 12:45 Insulin Detemir (Levemir) 15 units BEDTIME SUBQ 03/15/19 21:00 04/14/19 20:59 03/19/19 21:25 Iohexol (OMNIPAQUE-300 100ml) 100 ml NOW PRN INJ Radiology Procedure 03/20/19 22:30 03/22/19 22:17 Ipratropium Spencer (Atrovent) 500 mcg Q4HRT HHN 03/16/19 19:00 03/21/19 14:59 03/21/19 10:56 Levothyroxine Sodium (Synthroid) 200 mcg QHS GT 03/11/19 21:00 04/10/19 20:59 03/19/19 21:16 Metoclopramide HCl (Reglan) 10 mg EVERY 8 HOURS IVP 03/19/19 22:00 04/18/19 21:59 03/21/19 05:48 Metoclopramide HCl (Reglan) 10 mg Q8H PRN IVP Nausea & Vomiting 03/20/19 11:00 04/19/19 10:59 03/20/19 10:54 Morphine Sulfate (Morphine Sulfate) 2 mg Q3H PRN IVP severe pain 03/16/19 16:45 03/23/19 16:29 03/19/19 01:34 Moxifloxacin HCl (Vigamox) 1 drop Q12HR RIGHT EYE 03/16/19 21:00 03/23/19 20:59 03/21/19 01:44 Pantoprazole (Protonix) 40 mg DAILY@0630 IVP 03/20/19 06:30 04/19/19 06:29 03/21/19 05:58 Patient Own Medication (Patient's Own Med) 1 ea DAILYPRN PRN RECTAL constipation 03/11/19 21:15 04/10/19 21:14 03/19/19 12:15 Patient Own Medication (Patient's Own Med) 2 ea Q4HR OPHTHALM 03/17/19 13:00 04/16/19 12:59 03/21/19 12:46 Polyethylene Glycol (Miralax) 17 gm BEDTIME ORAL 03/17/19 21:00 04/16/19 20:59 03/19/19 21:16 Sodium Chloride (Sodium Chloride Dey-Nicolas 3%) 4 ml Q4HRT INH 03/17/19 07:00 04/16/19 06:59 03/19/19 19:44 Vitamin B Complex/ Vit C/Folic Acid (Nephrovite) 1 tab DAILY GT 03/12/19 09:00 04/11/19 08:59 03/21/19 09:31 Maykel Evans MD Mar 21, 2019 14:06
--- NOTE | 2019-03-21 14:34 | Nephrology Progress Note ---
Assessment/Plan Assessment 1) VDRF 2) ESRD 3) DM 4) Gastroparesis 5) Probable PNA, 6) Doubt CHF &) Some eosinophilia ? cause, Parasites, eosinophilic GE or pneumonitis Plan: HD tomorrow Continue IV ATB Needs to see GI motility specialist Subjective Subjective She is transferred to ICU for hypotension, received Bolus of IVF, now BP in the 100 systolic, CT scan was ordered, The Ct of hospital is broken and can not be done Objective Objective Last 24 Hour Vital Signs Date Time Temp Pulse Resp B/P (MAP) Pulse Ox O2 Delivery O2 Flow Rate FiO2 03/21/19 12:55 79 14 35 03/21/19 11:37 81 14 100 Mechanical Ventilator 35 03/21/19 10:54 81 14 100 Mechanical Ventilator 35 78 14 35 03/21/19 09:00 79 101/54 03/21/19 08:55 79 14 35 03/21/19 08:00 Mechanical Ventilator 03/21/19 08:00 35 03/21/19 07:03 87 15 100 Mechanical Ventilator 35 87 16 35 03/21/19 07:00 85 14 118/54 (75) 100 03/21/19 06:00 80 14 114/60 (78) 100 03/21/19 05:15 77 15 Mechanical Ventilator 35 03/21/19 05:00 79 14 86/51 (63) 100 03/21/19 04:00 97.6 79 15 98/46 (63) 100 03/21/19 04:00 77 03/21/19 04:00 35 03/21/19 04:00 Mechanical Ventilator 03/21/19 03:30 96.9 03/21/19 03:29 83 14 99 Mechanical Ventilator 35 84 15 35 03/21/19 03:00 88 16 124/69 (87) 99 03/21/19 02:00 87 15 109/59 (76) 99 03/21/19 01:15 87 14 Mechanical Ventilator 35 03/21/19 01:00 88 15 100/62 (75) 99 03/21/19 00:00 80 03/21/19 00:00 97.3 80 14 112/60 (77) 100 03/21/19 00:00 35 03/21/19 00:00 Mechanical Ventilator 03/20/19 23:28 82 15 99 Mechanical Ventilator 35 81 15 35 03/20/19 22:30 84 14 98/61 (73) 100 03/20/19 22:00 85 14 100/54 (69) 100 03/20/19 21:46 92 13 Mechanical Ventilator 35 03/20/19 21:30 97.2 82 14 103/64 (77) 100 03/20/19 21:30 82 03/20/19 21:00 85 98/58 03/20/19 20:00 35 03/20/19 20:00 Mechanical Ventilator 03/20/19 19:54 97.3 101 18 94/54 (67) 100 03/20/19 19:35 90 16 99 Mechanical Ventilator 35 90 17 35 03/20/19 19:11 93 03/20/19 18:50 91 18 96/67 (77) 98 03/20/19 18:33 92 18 82/48 (59) 98 03/20/19 17:13 103 18 73/49 (57) 98 03/20/19 17:00 110 14 65/43 (50) 100 03/20/19 16:57 107 14 77/50 (59) 100 03/20/19 16:55 106 14 69/49 (56) 100 03/20/19 16:50 106 18 35 03/20/19 16:00 Mechanical Ventilator 03/20/19 16:00 35 03/20/19 15:14 110 03/20/19 14:39 108 15 99 Mechanical Ventilator 35 108 16 35 Intake and Output 03/20/19 03/21/19 19:00 07:00 Intake Total 1094 ml 1240 ml Output Total 1000 ml Balance 94 ml 1240 ml IV Total 1000 ml 1240 ml Tube Feeding 94 ml Hemodialysis UF 1000 ml Laboratory Tests 03/20/19 22:02: Sodium Level 143, Potassium Level 3.4L, Chloride Level 108H, Carbon Dioxide Level 20L, Anion Gap 15, Blood Urea Nitrogen 27H, Creatinine 1.3, Estimat Glomerular Filtration Rate 41.3, Glucose Level 147H, Calcium Level 9.1, Total Bilirubin 0.5, Aspartate Amino Transf (AST/SGOT) 30, Alanine Aminotransferase ( ALT/SGPT) 39, Alkaline Phosphatase 240H, Total Protein 8.6H, Albumin 3.1L, Globulin 5.5, Albumin/Globulin Ratio 0.6L 03/20/19 22:52: White Blood Count 11.5H, Red Blood Count 4.10L, Hemoglobin 12.9, Hematocrit 37.9 , Mean Corpuscular Volume 92, Mean Corpuscular Hemoglobin 31.5H, Mean Corpuscular Hemoglobin Concent 34.1, Red Cell Distribution Width 16.3H, Platelet Count 377, Mean Platelet Volume 6.4L, Neutrophils (%) (Auto) 73.4, Lymphocytes (%) (Auto) 17.5L, Monocytes (%) (Auto) 5.3, Eosinophils (%) (Auto) 2.2, Basophils (%) (Auto) 1.5 Height (Feet): 5 Height (Inches): 4.00 Weight (Pounds): 154 General Appearance: WD/WN EENT: PERRL/EOMI Neck: non-tender, normal alignment Cardiovascular: normal peripheral pulses, normal rate Respiratory/Chest: chest wall non-tender, lungs clear Abdomen: non tender Neurologic: other - Quadriplegic Ede Thakur MD Mar 21, 2019 14:34
--- NOTE | 2019-03-21 15:00 | NUR ---
NURSE NOTES: Patient's sister refused CT at this time.
--- NOTE | 2019-03-21 15:09 | NUR ---
Social Work This SW met with patient who is currently in the ICU, along with caregivers and sister (Khadijah: [phone]) who is at bedside. Patient is from home with 24 hour nursing care (through "Home Living") and planning to discharge back to home via ambulance. Patient has no steps into her home, while receiving assistance with trach/peg/vent care. Patient is unresponsive, while sister, Khadijah is her conservator and should be contacted for all decision making. Patient has hospital bed (bedridden), wheelchair and Eleuterio lift. Sister expresses her only concerns are to have a new formula arranged (using "THICK" which is not going through her feeding tube properly. Sister explains she has discussed with the Medical team as well. Patient remains full code, full treatment at this time (has a POLST on file regarding this request).
--- NOTE | 2019-03-21 15:50 | Surgery Progress Note ---
Surgery Progress Note Subjective Additional Comments hypotension transferred to ICU for care improved with fluid resuscitation labs noted exam stable family at bedside Objective Last 24 Hour Vital Signs Date Time Temp Pulse Resp B/P (MAP) Pulse Ox O2 Delivery O2 Flow Rate FiO2 03/21/19 15:36 87 16 100 Mechanical Ventilator 35 87 17 35 03/21/19 12:55 79 14 35 03/21/19 11:37 81 14 100 Mechanical Ventilator 35 03/21/19 10:54 81 14 100 Mechanical Ventilator 35 78 14 35 03/21/19 09:00 79 101/54 03/21/19 08:55 79 14 35 03/21/19 08:00 Mechanical Ventilator 03/21/19 08:00 35 03/21/19 07:03 87 15 100 Mechanical Ventilator 35 87 16 35 03/21/19 07:00 85 14 118/54 (75) 100 03/21/19 06:00 80 14 114/60 (78) 100 03/21/19 05:15 77 15 Mechanical Ventilator 35 03/21/19 05:00 79 14 86/51 (63) 100 03/21/19 04:00 97.6 79 15 98/46 (63) 100 03/21/19 04:00 77 03/21/19 04:00 35 03/21/19 04:00 Mechanical Ventilator 03/21/19 03:30 96.9 03/21/19 03:29 83 14 99 Mechanical Ventilator 35 84 15 35 03/21/19 03:00 88 16 124/69 (87) 99 03/21/19 02:00 87 15 109/59 (76) 99 03/21/19 01:15 87 14 Mechanical Ventilator 35 03/21/19 01:00 88 15 100/62 (75) 99 03/21/19 00:00 80 03/21/19 00:00 97.3 80 14 112/60 (77) 100 03/21/19 00:00 35 03/21/19 00:00 Mechanical Ventilator 03/20/19 23:28 82 15 99 Mechanical Ventilator 35 81 15 35 03/20/19 22:30 84 14 98/61 (73) 100 03/20/19 22:00 85 14 100/54 (69) 100 03/20/19 21:46 92 13 Mechanical Ventilator 35 03/20/19 21:30 97.2 82 14 103/64 (77) 100 03/20/19 21:30 82 03/20/19 21:00 85 98/58 03/20/19 20:00 35 03/20/19 20:00 Mechanical Ventilator 03/20/19 19:54 97.3 101 18 94/54 (67) 100 03/20/19 19:35 90 16 99 Mechanical Ventilator 35 90 17 35 03/20/19 19:11 93 03/20/19 18:50 91 18 96/67 (77) 98 03/20/19 18:33 92 18 82/48 (59) 98 03/20/19 17:13 103 18 73/49 (57) 98 03/20/19 17:00 110 14 65/43 (50) 100 03/20/19 16:57 107 14 77/50 (59) 100 03/20/19 16:55 106 14 69/49 (56) 100 03/20/19 16:50 106 18 35 03/20/19 16:00 Mechanical Ventilator 03/20/19 16:00 35 I&O Intake and Output 03/20/19 03/21/19 19:00 07:00 Intake Total 1094 ml 1240 ml Output Total 1000 ml Balance 94 ml 1240 ml IV Total 1000 ml 1240 ml Tube Feeding 94 ml Hemodialysis UF 1000 ml Dressing: dry Cardiovascular: RSR Respiratory: clear Abdomen: soft, distended, decreased bowel sounds Extremities: no cyanosis, other Laboratory Tests Test 03/20/19 22:02 03/20/19 22:52 Sodium Level 143 MMOL/L (136-145) Potassium Level 3.4 MMOL/L (3.5-5.1) L Chloride Level 108 MMOL/L (98-107) H Carbon Dioxide Level 20 MMOL/L (21-32) L Anion Gap 15 mmol/L (5-15) Blood Urea Nitrogen 27 mg/dL (7-18) H Creatinine 1.3 MG/DL (0.55-1.30) Estimat Glomerular Filtration Rate 41.3 mL/min (>60) Glucose Level 147 MG/DL (74-106) H Calcium Level 9.1 MG/DL (8.5-10.1) Total Bilirubin 0.5 MG/DL (0.2-1.0) Aspartate Amino Transf (AST/SGOT) 30 U/L (15-37) Alanine Aminotransferase (ALT/SGPT) 39 U/L (12-78) Alkaline Phosphatase 240 U/L (46-116) H Total Protein 8.6 G/DL (6.4-8.2) H Albumin 3.1 G/DL (3.4-5.0) L Globulin 5.5 g/dL Albumin/Globulin Ratio 0.6 (1.0-2.7) L White Blood Count 11.5 K/UL (4.8-10.8) H Red Blood Count 4.10 M/UL (4.20-5.40) L Hemoglobin 12.9 G/DL (12.0-16.0) Hematocrit 37.9 % (37.0-47.0) Mean Corpuscular Volume 92 FL (80-99) Mean Corpuscular Hemoglobin 31.5 PG (27.0-31.0) H Mean Corpuscular Hemoglobin Concent 34.1 G/DL (32.0-36.0) Red Cell Distribution Width 16.3 % (11.6-14.8) H Platelet Count 377 K/UL (150-450) Mean Platelet Volume 6.4 FL (6.5-10.1) L Neutrophils (%) (Auto) 73.4 % (45.0-75.0) Lymphocytes (%) (Auto) 17.5 % (20.0-45.0) L Monocytes (%) (Auto) 5.3 % (1.0-10.0) Eosinophils (%) (Auto) 2.2 % (0.0-3.0) Basophils (%) (Auto) 1.5 % (0.0-2.0) Plan Problems: (1) Fecal impaction Assessment & Plan: seen by GI and G replaced with GJ can tolerate some j feeds still with significant bilious g tube drainage imaging noted requires bowel regimen intermittent constipation appreciate GI input consideration for surgical J and diverting loop colostomy in future if stable elective discussed with sister (2) Sepsis Assessment & Plan: Cont IV ABx trend labs Rx as written vent feeds Complete assessment of pt's skin completed.. care givers at bedside. Pt has trach and noted to have washcloth intertwined with trach collar. Pt's hunting and fishing guide at bedside and declined for washcloth to be removed during my exam as well. Pt's caregiver was educated coarseness of washcloth is risk to pt's skin and may cause skin breakdown. health sciences manager responded washcloth has been in use for over 10yrs and pt has never had skin breakdown. Skin assessed under and around trach and neck and no erythema or evidence of skin breakdown. Both elbows,both hips ,skin folds of breasts, abd and bilat groin and perineum without erythema or evidence of any skin breakdown. Back buttocks and both heels assessed and is pink without any evidence of skin breakdown. health sciences manager verbalized that previous day pt had red area on L buttocks /ischial region when on left side and similar on right when on right side. sister assured me she has "pictures to prove it". Erythema has now resolved and this was indicated to hunting and fishing guide whom was also invited to assess pt's skin to confirm no redness noted. sister agreed that it had resolved since she last saw her and states it happens during the two hours she is on each side with planned turning. Moisture Barrier paste applied to perineum and buttocks. Optifoam drsgs applied as prevention to both hips ,Sacral area and both heels. Pt was positioned on her side with pillows and both heels floated off mattress. Pt is on an APM/ARCELIA mattress overlay due to pt identified as high risk for skin breakdown ;Francesco score of 9.Pt is being repositioned as per protocols and per pt's tolerance. patient currently without skin breakdown has padding placed with dressing on right hand IV Site. moisture noted and recommend removal / change but even during my examination of area the caregiver physically did not allow my to do so or even appropriately evaluate and stated that it is there to ensure IV line does not dislodge as she is a very hard IV stick. I had long discussion with family and caregiver about current care and plans. all questions answered. on air mattress Tx.Plan: Apply Moisture Barrier Paste to skin folds and buttocks with each perineal care. Cover sacral area with Optifoam drsg . Change every 3 days and prn. Apply Cavilon Skin Barrier to both hips. Cover each hip with Optifoam drsg. Change every 7 days and prn. Apply Cavilon Skin Barrier to both heels. Cover each heel with Optifoam drsg. Change every 7 days and prn. Reposition at least every 2hours or as tolerated. Off-load heels with pillow. Artemio Jones Mar 21, 2019 15:50
--- NOTE | 2019-03-21 16:15 | General Progress Note ---
Assessment/Plan Status: stable Assessment/Plan: Assessment - Resolved stool impaction - G TF intolerance - s/p G--> GJ conversion, - Resp failure / trach - renal failure - contracted / vegetative state - high decub risk - hypotension / leukocytosis - ? volume vs sepsis -> much improved overnight Recommendations - TF on hold due to hypotension and CT order - CT C/A/P, pending sister approval - Reglan trial - ICU care - IVF , abx - sepsis w/u - decub prevention - guarded Subjective Allergies: Coded Allergies: OLANZAPINE (Verified Allergy, Severe, RESP FAILURE, 11/25/13) VANCOMYCIN (Verified Allergy, Severe, 11/25/13) PIPERACILLIN (Verified Allergy, Intermediate, HIVES, 11/25/13) TAZOBACTAM (Verified Allergy, Intermediate, HIVES, 11/25/13) Subjective multiple calls from RNs patient's vitals sablized upon arrival to ICU hospital now with mobile CT unit outside premises sister with concerns re transportation and ventilation but still adamantly wants the CT done all questions answered J port now open per RN Objective Last 24 Hour Vital Signs Date Time Temp Pulse Resp B/P (MAP) Pulse Ox O2 Delivery O2 Flow Rate FiO2 03/21/19 16:00 35 03/21/19 16:00 Mechanical Ventilator 03/21/19 15:36 87 16 100 Mechanical Ventilator 35 87 17 35 03/21/19 12:55 79 14 35 03/21/19 12:00 35 03/21/19 12:00 Mechanical Ventilator 03/21/19 11:37 81 14 100 Mechanical Ventilator 35 03/21/19 10:54 81 14 100 Mechanical Ventilator 35 78 14 35 03/21/19 09:00 79 101/54 03/21/19 08:55 79 14 35 03/21/19 08:00 Mechanical Ventilator 03/21/19 08:00 35 03/21/19 07:03 87 15 100 Mechanical Ventilator 35 87 16 35 03/21/19 07:00 85 14 118/54 (75) 100 03/21/19 06:00 80 14 114/60 (78) 100 03/21/19 05:15 77 15 Mechanical Ventilator 35 03/21/19 05:00 79 14 86/51 (63) 100 03/21/19 04:00 97.6 79 15 98/46 (63) 100 03/21/19 04:00 77 9/27/19 04:00 35 03/21/19 04:00 Mechanical Ventilator 03/21/19 03:30 96.9 03/21/19 03:29 83 14 99 Mechanical Ventilator 35 84 15 35 03/21/19 03:00 88 16 124/69 (87) 99 03/21/19 02:00 87 15 109/59 (76) 99 03/21/19 01:15 87 14 Mechanical Ventilator 35 03/21/19 01:00 88 15 100/62 (75) 99 03/21/19 00:00 80 03/21/19 00:00 97.3 80 14 112/60 (77) 100 03/21/19 00:00 35 03/21/19 00:00 Mechanical Ventilator 03/20/19 23:28 82 15 99 Mechanical Ventilator 35 81 15 35 03/20/19 22:30 84 14 98/61 (73) 100 03/20/19 22:00 85 14 100/54 (69) 100 03/20/19 21:46 92 13 Mechanical Ventilator 35 03/20/19 21:30 97.2 82 14 103/64 (77) 100 03/20/19 21:30 82 03/20/19 21:00 85 98/58 03/20/19 20:00 35 03/20/19 20:00 Mechanical Ventilator 03/20/19 19:54 97.3 101 18 94/54 (67) 100 03/20/19 19:35 90 16 99 Mechanical Ventilator 35 90 17 35 03/20/19 19:11 93 03/20/19 18:50 91 18 96/67 (77) 98 03/20/19 18:33 92 18 82/48 (59) 98 03/20/19 17:13 103 18 73/49 (57) 98 03/20/19 17:00 110 14 65/43 (50) 100 03/20/19 16:57 107 14 77/50 (59) 100 03/20/19 16:55 106 14 69/49 (56) 100 03/20/19 16:50 106 18 35 Intake and Output 03/20/19 03/21/19 19:00 07:00 Intake Total 1094 ml 1240 ml Output Total 1000 ml Balance 94 ml 1240 ml IV Total 1000 ml 1240 ml Tube Feeding 94 ml Hemodialysis UF 1000 ml Laboratory Tests 03/20/19 22:02: Sodium Level 143, Potassium Level 3.4L, Chloride Level 108H, Carbon Dioxide Level 20L, Anion Gap 15, Blood Urea Nitrogen 27H, Creatinine 1.3, Estimat Glomerular Filtration Rate 41.3, Glucose Level 147H, Calcium Level 9.1, Total Bilirubin 0.5, Aspartate Amino Transf (AST/SGOT) 30, Alanine Aminotransferase ( ALT/SGPT) 39, Alkaline Phosphatase 240H, Total Protein 8.6H, Albumin 3.1L, Globulin 5.5, Albumin/Globulin Ratio 0.6L 03/20/19 22:52: White Blood Count 11.5H, Red Blood Count 4.10L, Hemoglobin 12.9, Hematocrit 37.9 , Mean Corpuscular Volume 92, Mean Corpuscular Hemoglobin 31.5H, Mean Corpuscular Hemoglobin Concent 34.1, Red Cell Distribution Width 16.3H, Platelet Count 377, Mean Platelet Volume 6.4L, Neutrophils (%) (Auto) 73.4, Lymphocytes (%) (Auto) 17.5L, Monocytes (%) (Auto) 5.3, Eosinophils (%) (Auto) 2.2, Basophils (%) (Auto) 1.5 Height (Feet): 5 Height (Inches): 4.00 Weight (Pounds): 154 Objective Debilitated nonverbal woman unresponsive, comatose, eyes closed NCAT (+) trach coarse BS RR abd soft , GJ tube (++) contracted extremities Neuro Coma, contracted Emily Hu MD Mar 21, 2019 16:15
--- NOTE | 2019-03-21 17:00 | NUR ---
NURSE NOTES: IV inserted on left thumb 22G, patent and asymptomatic.
--- NOTE | 2019-03-21 17:11 | NUR ---
NURSE NOTES: Received report from Griselda Caballero RN. family at bedside with care aids. Patient in bed, non verbal. opens eyes spontaneous. pupils sluggish at 3mm. SR noted on monitor car operator. Bilateral peripheral radial and pedal pulses weak. cap refill<3 sec. lung sounds rhonchi. moderate secretions, white, oral suction provided. pt trach to vent: Shiley 8XLT. vent settings: AC12, VT 450, Fi02 35%, PEEP 5. skin pale. extremities warm to touch. Abdomen distended, non tender. no bm at this time. pt GT clamped. Pt NPO at this time, on hold prior to procedure. no residuals. pt anuric, bladder flat. iv access Right hand 22G and left thumb 22g, running DNS0ml/hr. skin intact extremities non pitting edema. bilateral arms and heels elevated on pillows. Bed in lowest position, locked, side rails upx3. contact precautions in place. Bed alarm on. Call light within reach. Will continue to monitor.
--- NOTE | 2019-03-21 17:33 | NUR ---
TRANSFER TO FLOOR: Patient transferred to [facility], per Dr. Evans. Report given to PHIL Fontenot. Sister, Khadijah and caregivers at bedside and notified of transfer. Patient is in stable condition.
[2019-03-21] MEDS ORDERED: BISACODYL 10 MG RECTAL PRN (18:00)
[2019-03-21] MEDS ORDERED: Acetaminophen 650 MG SUPP RECTAL PRN (18:00)
[2019-03-21] MEDS ORDERED: Morphine Sulfate 2mg/ml Inj(IV/IM USE ONLY) IVP PRN (18:00)
[2019-03-21] MEDS ORDERED: Metoclopramide 10mg/2ml Inj IVP PRN (18:00)
--- NOTE | 2019-03-21 18:30 | NUR ---
NURSE NOTES: family at bedside with care aids. able to stimulate bm, light [place] color, trace amounts of coffee ground striks present. small amount. SR noted on vehicle service agent. Bilateral peripheral radial and pedal pulses weak.lung sounds rhonchi. moderate secretions, white, oral suction provided. pt trach to vent: Kennaley 8XLT. vent settings: AC12, VT 450, Fi02 35%, PEEP 5. Pt NPO at this time. no residuals, flushed for patentcy. pt anuric, bladder flat. iv access Right hand 22G and left thumb 22g, running DNS0ml/hr. pt cleaned and repositioned with help of day care center director. Bed in lowest position, locked, side rails upx3. contact precautions in place. Bed alarm on. Call light within reach. Will continue to monitor.
[2019-03-21] MEDS: D5NS 1,000 ML IV SCH (18:31)
--- NOTE | 2019-03-21 19:31 | NUR ---
NURSE NOTES: [facility] called to report order for , spoke with Cee.
--- NOTE | 2019-03-21 19:40 | NUR ---
HAND-OFF: Report given to Constantin VILLARREAL. pt in no acute distress.
[2019-03-21] MEDS: Dyna-Hex 2% Top Sol 2oz TOPIC SCH (20:47)
[2019-03-21] MEDS: Miralax 17gm pkt ORAL SCH (21:24)
[2019-03-21] MEDS: Levemir Flexpen SUBQ SCH (21:53)
[2019-03-21] MEDS ORDERED: Acetaminophen 650mg/20.3ml GT PRN (22:00)
[2019-03-21] MEDS ORDERED: Omnipaque-300 100ml vial INJ PRN (22:30)
[2019-03-22] VITALS: BP 101/56
[2019-03-22] MEDS: Lacri-Lube Opth Oint 3.5gm RIGHT EYE SCH ×6 (01:28→20:49)
[2019-03-22] MEDS: SYSTANE ULTRA OPHTHALM SCH ×6 (01:29→20:49)
[2019-03-22] MEDS: Ipratropium 0.02% Inh Soln 2.5ml UD HHN SCH ×4 (02:34→19:10)
[2019-03-22] MEDS: Albuterol ud Inhalation HHN SCH ×6 (02:35→23:45)
[2019-03-22] MEDS: Sodium Chloride 3% 4ml Nebul Soln INH SCH ×4 (03:00→19:00)
[2019-03-22 04:00] VITALS: BP 122/59
[2019-03-22] MEDS: Metoclopramide 10mg/2ml Inj IVP SCH ×3 (05:42→22:10)
[2019-03-22] MEDS: NovoLOG Insulin Flexpen SUBQ SCH ×4 (05:44→18:00)
[2019-03-22] MEDS: Pantoprazole Inj IVP SCH (06:06)
[2019-03-22 06:29] LABS: BASOPHILS % (AUTO) 1.6 % (0.0-2.0); EOSINOPHILS % (AUTO) 5.2 % (0.0-3.0); HEMATOCRIT 36.8 % (37.0-47.0); HEMOGLOBIN 12.1 G/DL (12.0-16.0); LYMPHOCYTES % (AUTO) 14.7 % (20.0-45.0); MEAN CORPUSCULAR VOLUME 95 FL (80-99); MONOCYTES % (AUTO) 4.9 % (1.0-10.0); NEUTROPHILS % (AUTO) 73.5 % (45.0-75.0); PLATELET COUNT 366 K/UL (150-450); RED BLOOD COUNT 3.87 M/UL (4.20-5.40); RED CELL DISTRIBUTION WIDTH 16.4 % (11.6-14.8); WHITE BLOOD COUNT 9.5 K/UL (4.8-10.8)
[2019-03-22 06:38] LABS: ALANINE AMINOTRANSFERASE 50 U/L (12-78); ALBUMIN 3.1 G/DL (3.4-5.0); ALBUMIN/GLOBULIN RATIO 0.6 (1.0-2.7); ALKALINE PHOSPHATASE 244 U/L (46-116); ANION GAP 15 mmol/L (5-15); ASPARTATE AMINO TRANSFERASE 40 U/L (15-37); BILIRUBIN,TOTAL 0.5 MG/DL (0.2-1.0); BLOOD UREA NITROGEN 37 mg/dL (7-18); CALCIUM 8.9 MG/DL (8.5-10.1); CARBON DIOXIDE 18 MMOL/L (21-32); CHLORIDE 106 MMOL/L (98-107); CREATININE 1.7 MG/DL (0.55-1.30); POTASSIUM 3.8 MMOL/L (3.5-5.1); SODIUM 139 MMOL/L (136-145)
--- NOTE | 2019-03-22 07:35 | NUR ---
NURSE NOTES: Received bedside report from Lb VILLARREAL. Pt. in bed, obtunded, eyes open. No sign of distress. On mech. vent. with setting of AC12/VT450/FiO2 of 35%/P5. No grimacing noted. GT/JT in placed. Port-a-cath at left upper chest in placed. No s/sx of bleeding noted. IV site at left thumb and right hand #22g. in placed patent/intact. Bed in low position, locked. Call light within reach. Will cont. to monitor.
--- NOTE | 2019-03-22 07:40 | NUR ---
HAND-OFF: Report given to PHIL Jarquin.
[2019-03-22 08:00] VITALS: BP 125/67
[2019-03-22] MEDS ORDERED: Heparin Sod 1000 units/ml 10ml IV PRN ×2 (09:00)
[2019-03-22] MEDS: Carvedilol 12.5mg tab GT SCH ×2 (09:00→20:46)
--- NOTE | 2019-03-22 09:00 | NUR ---
NURSE NOTES: Coreg 12.5mg. refused by pt. sister.
--- NOTE | 2019-03-22 09:30 | NUR ---
NURSE NOTES: Flushed JT (infront of sister pt.) it is patent/intact with little resistance only. GT with residual of 50cc of greenish output.
[2019-03-22] MEDS: Nephrovite tab (Rena-Vite) GT SCH (09:32)
[2019-03-22] MEDS: Vigamox Opth Soln 3ml RIGHT EYE SCH ×2 (10:44→21:05)
--- NOTE | 2019-03-22 11:14 | General Progress Note ---
Assessment/Plan Problem List: (1) Tracheostomy malfunction ICD Codes: J95.03 - Malfunction of tracheostomy stoma SNOMED: 21743175 (2) Acute renal failure ICD Codes: N17.9 - Acute kidney failure, unspecified SNOMED: 77083735 (3) Pericardial effusion ICD Codes: I31.3 - Pericardial effusion (noninflammatory) SNOMED: 758386636 (4) Sepsis ICD Codes: A41.9 - Sepsis, unspecified organism SNOMED: 86843804 (5) Pneumonia ICD Codes: J18.9 - Pneumonia, unspecified organism SNOMED: 077096814 (6) Tracheostomy malfunction ICD Codes: J95.03 - Malfunction of tracheostomy stoma SNOMED: 06148079 (7) Hypotension ICD Codes: I95.9 - Hypotension, unspecified SNOMED: 55010835 (8) Fecal impaction ICD Codes: K56.41 - Fecal impaction SNOMED: 36717878 Status: stable Assessment/Plan: cta bd per GI monitor residuals g tube to LIS j tube feeds abx bowel regime monitor renal fxn/labs skin care vent support resp care monitor secretions Subjective ROS Limited/Unobtainable: No Constitutional: Reports: malaise, weakness HEENT: Reports: no symptoms Cardiovascular: Reports: no symptoms Respiratory: Reports: cough, shortness of breath, sputum Gastrointestinal/Abdominal: Reports: difficulty swallowing Genitourinary: Reports: no symptoms Neurologic/Psychiatric: Reports: pre-existing deficit Endocrine: Reports: no symptoms Hematologic/Lymphatic: Reports: anemia Allergies: Coded Allergies: OLANZAPINE (Verified Allergy, Severe, RESP FAILURE, 11/25/13) VANCOMYCIN (Verified Allergy, Severe, 11/25/13) PIPERACILLIN (Verified Allergy, Intermediate, HIVES, 11/25/13) TAZOBACTAM (Verified Allergy, Intermediate, HIVES, 11/25/13) All Systems: reviewed and negative except above Subjective no events. stable on the vent. j tube unclogged. on iv abx. ct pending for today Objective Last 24 Hour Vital Signs Date Time Temp Pulse Resp B/P (MAP) Pulse Ox O2 Delivery O2 Flow Rate FiO2 03/22/19 11:07 81 14 100 Mechanical Ventilator 35 81 13 35 03/22/19 09:12 76 13 100 Mechanical Ventilator 35 80 14 35 03/22/19 09:00 76 125/67 03/22/19 08:00 98.4 69 12 125/67 (86) 100 03/22/19 07:42 67 03/22/19 07:19 80 14 100 Mechanical Ventilator 35 80 14 35 03/22/19 05:26 70 15 35 03/22/19 04:00 35 03/22/19 04:00 69 03/22/19 04:00 Mechanical Ventilator 03/22/19 04:00 97.5 68 20 122/59 (80) 100 03/22/19 02:35 72 14 100 Mechanical Ventilator 35 70 12 35 03/22/19 01:21 65 12 35 03/22/19 00:03 Mechanical Ventilator 03/22/19 00:00 96.6 65 16 101/56 (71) 100 03/22/19 00:00 69 03/21/19 23:32 70 13 100 Mechanical Ventilator 35 70 12 35 03/21/19 22:54 68 15 107/66 (80) 100 03/21/19 21:28 79 12 35 03/21/19 21:00 74 86/48 03/21/19 20:00 35 03/21/19 20:00 Mechanical Ventilator 03/21/19 20:00 97.6 90 18 101/56 (71) 100 03/21/19 19:54 81 12 35 03/21/19 18:00 90 12 99/55 (70) 100 03/21/19 17:13 87 16 35 03/21/19 17:00 83 12 116/63 (80) 100 03/21/19 16:00 35 03/21/19 16:00 97.5 83 12 105/60 (75) 100 03/21/19 16:00 86 03/21/19 16:00 Mechanical Ventilator 03/21/19 15:36 87 16 100 Mechanical Ventilator 35 87 17 35 03/21/19 15:00 96 17 103/66 (78) 100 03/21/19 14:00 92 15 99/75 (83) 100 03/21/19 13:00 80 15 122/62 (82) 100 03/21/19 12:55 79 14 35 03/21/19 12:00 35 03/21/19 12:00 80 03/21/19 12:00 Mechanical Ventilator 03/21/19 12:00 97.8 79 15 113/62 (79) 100 03/21/19 11:37 81 14 100 Mechanical Ventilator 35 Intake and Output 03/21/19 03/22/19 19:00 07:00 Intake Total 19.07901 ml Balance 19.66834 ml IV Total 19.57364 ml Laboratory Tests 03/22/19 05:59: White Blood Count 9.5, Red Blood Count 3.87L, Hemoglobin 12.1, Hematocrit 36.8L , Mean Corpuscular Volume 95, Mean Corpuscular Hemoglobin 31.3H, Mean Corpuscular Hemoglobin Concent 32.9, Red Cell Distribution Width 16.4H, Platelet Count 366, Mean Platelet Volume 6.6, Neutrophils (%) (Auto) 73.5, Lymphocytes (%) (Auto) 14.7L, Monocytes (%) (Auto) 4.9, Eosinophils (%) (Auto) 5.2H, Basophils (%) (Auto) 1.6, Sodium Level 139, Potassium Level 3.8, Chloride Level 106, Carbon Dioxide Level 18L, Anion Gap 15, Blood Urea Nitrogen 37H, Creatinine 1.7H, Estimat Glomerular Filtration Rate 30.3, Glucose Level 153H, Calcium Level 8.9, Total Bilirubin 0.5, Aspartate Amino Transf (AST/SGOT) 40H, Alanine Aminotransferase (ALT/SGPT) 50, Alkaline Phosphatase 244H, Total Protein 8.2, Albumin 3.1L, Globulin 5.1, Albumin/Globulin Ratio 0.6L Height (Feet): 5 Height (Inches): 4.00 Weight (Pounds): 154 Objective General Appearance: WD/WN, alert Neck: supple Cardiovascular: regular rhythm Respiratory/Chest: chest wall non-tender, rhonchi - bilaterally Abdomen: normal bowel sounds, non tender, soft, no organomegaly Edema: no edema noted Arm (L), no edema noted Arm (R), no edema noted Leg (L), no edema noted Leg (R), no edema noted Pedal (L), no edema noted Pedal (R), no edema noted Generalized Neurologic: disoriented, unresponsive, aphasia Pito Jones MD Mar 22, 2019 11:14
[2019-03-22 12:00] VITALS: BP 123/68
--- NOTE | 2019-03-22 12:28 | Surgery Progress Note ---
Surgery Progress Note Subjective Additional Comments Patient seen and examined bedside. Downgrade from ICU. Sister is at bedside Long discussion regarding care plan and goals. Objective Last 24 Hour Vital Signs Date Time Temp Pulse Resp B/P (MAP) Pulse Ox O2 Delivery O2 Flow Rate FiO2 03/22/19 11:07 81 14 100 Mechanical Ventilator 35 81 13 35 03/22/19 09:12 76 13 35 03/22/19 09:00 76 125/67 03/22/19 08:00 Mechanical Ventilator 03/22/19 08:00 98.4 69 12 125/67 (86) 100 03/22/19 08:00 35 03/22/19 07:42 67 03/22/19 07:19 80 14 100 Mechanical Ventilator 35 80 14 35 03/22/19 05:26 70 15 35 03/22/19 04:00 35 03/22/19 04:00 69 03/22/19 04:00 Mechanical Ventilator 03/22/19 04:00 97.5 68 20 122/59 (80) 100 03/22/19 02:35 72 14 100 Mechanical Ventilator 35 70 12 35 03/22/19 01:21 65 12 35 03/22/19 00:03 Mechanical Ventilator 03/22/19 00:00 96.6 65 16 101/56 (71) 100 03/22/19 00:00 69 03/21/19 23:32 70 13 100 Mechanical Ventilator 35 70 12 35 03/21/19 22:54 68 15 107/66 (80) 100 03/21/19 21:28 79 12 35 03/21/19 21:00 74 86/48 03/21/19 20:00 35 03/21/19 20:00 Mechanical Ventilator 03/21/19 20:00 97.6 90 18 101/56 (71) 100 03/21/19 19:54 81 12 35 03/21/19 18:00 90 12 99/55 (70) 100 03/21/19 17:13 87 16 35 03/21/19 17:00 83 12 116/63 (80) 100 03/21/19 16:00 35 03/21/19 16:00 97.5 83 12 105/60 (75) 100 03/21/19 16:00 86 03/21/19 16:00 Mechanical Ventilator 03/21/19 15:36 87 16 100 Mechanical Ventilator 35 87 17 35 03/21/19 15:00 96 17 103/66 (78) 100 03/21/19 14:00 92 15 99/75 (83) 100 03/21/19 13:00 80 15 122/62 (82) 100 03/21/19 12:55 79 14 35 I&O Intake and Output 03/21/19 03/22/19 18:59 06:59 Intake Total 40 ml 19.38857 ml Balance 40 ml 19.54002 ml IV Total 40 ml 19.11678 ml Cardiovascular: RSR Respiratory: clear, decreased breath sounds Abdomen: soft, distended, decreased bowel sounds Extremities: no cyanosis, other Laboratory Tests Test 03/22/19 05:59 White Blood Count 9.5 K/UL (4.8-10.8) Red Blood Count 3.87 M/UL (4.20-5.40) L Hemoglobin 12.1 G/DL (12.0-16.0) Hematocrit 36.8 % (37.0-47.0) L Mean Corpuscular Volume 95 FL (80-99) Mean Corpuscular Hemoglobin 31.3 PG (27.0-31.0) H Mean Corpuscular Hemoglobin Concent 32.9 G/DL (32.0-36.0) Red Cell Distribution Width 16.4 % (11.6-14.8) H Platelet Count 366 K/UL (150-450) Mean Platelet Volume 6.6 FL (6.5-10.1) Neutrophils (%) (Auto) 73.5 % (45.0-75.0) Lymphocytes (%) (Auto) 14.7 % (20.0-45.0) L Monocytes (%) (Auto) 4.9 % (1.0-10.0) Eosinophils (%) (Auto) 5.2 % (0.0-3.0) H Basophils (%) (Auto) 1.6 % (0.0-2.0) Sodium Level 139 MMOL/L (136-145) Potassium Level 3.8 MMOL/L (3.5-5.1) Chloride Level 106 MMOL/L (98-107) Carbon Dioxide Level 18 MMOL/L (21-32) L Anion Gap 15 mmol/L (5-15) Blood Urea Nitrogen 37 mg/dL (7-18) H Creatinine 1.7 MG/DL (0.55-1.30) H Estimat Glomerular Filtration Rate 30.3 mL/min (>60) Glucose Level 153 MG/DL (74-106) H Calcium Level 8.9 MG/DL (8.5-10.1) Total Bilirubin 0.5 MG/DL (0.2-1.0) Aspartate Amino Transf (AST/SGOT) 40 U/L (15-37) H Alanine Aminotransferase (ALT/SGPT) 50 U/L (12-78) Alkaline Phosphatase 244 U/L (46-116) H Total Protein 8.2 G/DL (6.4-8.2) Albumin 3.1 G/DL (3.4-5.0) L Globulin 5.1 g/dL Albumin/Globulin Ratio 0.6 (1.0-2.7) L Plan Problems: (1) Fecal impaction Assessment & Plan: seen by GI and G replaced with GJ can tolerate some j feeds still with significant bilious g tube drainage imaging noted requires bowel regimen intermittent constipation appreciate GI input consideration for surgical J and diverting loop colostomy in future if stable elective discussed with sister (2) Sepsis Assessment & Plan: Cont IV ABx trend labs Rx as written vent feeds Complete assessment of pt's skin completed.. care givers at bedside. Pt has trach and noted to have washcloth intertwined with trach collar. Pt's personal injury specialist at bedside and declined for washcloth to be removed during my exam as well. Pt's caregiver was educated coarseness of washcloth is risk to pt's skin and may cause skin breakdown. lpta responded washcloth has been in use for over 10yrs and pt has never had skin breakdown. Skin assessed under and around trach and neck and no erythema or evidence of skin breakdown. Both elbows,both hips ,skin folds of breasts, abd and bilat groin and perineum without erythema or evidence of any skin breakdown. Back buttocks and both heels assessed and is pink without any evidence of skin breakdown. lpta verbalized that previous day pt had red area on L buttocks /ischial region when on left side and similar on right when on right side. sister assured me she has "pictures to prove it". Erythema has now resolved and this was indicated to personal injury specialist whom was also invited to assess pt's skin to confirm no redness noted. sister agreed that it had resolved since she last saw her and states it happens during the two hours she is on each side with planned turning. Moisture Barrier paste applied to perineum and buttocks. Optifoam drsgs applied as prevention to both hips ,Sacral area and both heels. Pt was positioned on her side with pillows and both heels floated off mattress. Pt is on an APM/ARCELIA mattress overlay due to pt identified as high risk for skin breakdown ;Francesco score of 9.Pt is being repositioned as per protocols and per pt's tolerance. patient currently without skin breakdown has padding placed with dressing on right hand IV Site. moisture noted and recommend removal / change but even during my examination of area the caregiver physically did not allow my to do so or even appropriately evaluate and stated that it is there to ensure IV line does not dislodge as she is a very hard IV stick. I had long discussion with family and caregiver about current care and plans. all questions answered. on air mattress Tx.Plan: Apply Moisture Barrier Paste to skin folds and buttocks with each perineal care. Cover sacral area with Optifoam drsg . Change every 3 days and prn. Apply Cavilon Skin Barrier to both hips. Cover each hip with Optifoam drsg. Change every 7 days and prn. Apply Cavilon Skin Barrier to both heels. Cover each heel with Optifoam drsg. Change every 7 days and prn. Reposition at least every 2hours or as tolerated. Off-load heels with pillow. Additional Comments Will discuss with GI about tube feeds and J-tube. Artemio Jones Mar 22, 2019 12:28
[2019-03-22] MEDS: Cefepime HCl 1 GM in D5W 55 ML IVPB SCH (13:00)
--- NOTE | 2019-03-22 13:00 | NUR ---
NURSE NOTES: Maxipine 1gm. due at 1300 held. Pt. having HD at present. HD RN told RN not to give.
--- NOTE | 2019-03-22 13:29 | Infectious Diseases Prog Note ---
Assessment/Plan Assessment/Plan A; 1. Pseudomonas pneumonia. 2. Leukocytosis. 3. Respiratory failure on ventilator 4. Diabetes. 5. Hypertension. 6. Fecal impaction PLAN: 1. Continue IV cefepime X 5 days Subjective ROS Limited/Unobtainable: Yes Constitutional: Denies: fever Allergies: Coded Allergies: OLANZAPINE (Verified Allergy, Severe, RESP FAILURE, 11/25/13) VANCOMYCIN (Verified Allergy, Severe, 11/25/13) PIPERACILLIN (Verified Allergy, Intermediate, HIVES, 11/25/13) TAZOBACTAM (Verified Allergy, Intermediate, HIVES, 11/25/13) Objective Vital Signs Last 24 Hour Vital Signs Date Time Temp Pulse Resp B/P (MAP) Pulse Ox O2 Delivery O2 Flow Rate FiO2 03/22/19 12:00 35 03/22/19 12:00 Mechanical Ventilator 03/22/19 12:00 97.4 75 12 123/68 (86) 100 03/22/19 11:46 75 03/22/19 11:07 81 14 100 Mechanical Ventilator 35 81 13 35 03/22/19 09:12 76 13 35 03/22/19 09:00 76 125/67 03/22/19 08:00 Mechanical Ventilator 03/22/19 08:00 98.4 69 12 125/67 (86) 100 03/22/19 08:00 35 03/22/19 07:42 67 03/22/19 07:19 80 14 100 Mechanical Ventilator 35 80 14 35 03/22/19 05:26 70 15 35 03/22/19 04:00 35 03/22/19 04:00 69 03/22/19 04:00 Mechanical Ventilator 03/22/19 04:00 97.5 68 20 122/59 (80) 100 03/22/19 02:35 72 14 100 Mechanical Ventilator 35 70 12 35 03/22/19 01:21 65 12 35 03/22/19 00:03 Mechanical Ventilator 03/22/19 00:00 96.6 65 16 101/56 (71) 100 03/22/19 00:00 69 03/21/19 23:32 70 13 100 Mechanical Ventilator 35 70 12 35 03/21/19 22:54 68 15 107/66 (80) 100 03/21/19 21:28 79 12 35 03/21/19 21:00 74 86/48 03/21/19 20:00 35 03/21/19 20:00 Mechanical Ventilator 03/21/19 20:00 97.6 90 18 101/56 (71) 100 03/21/19 19:54 81 12 35 03/21/19 18:00 90 12 99/55 (70) 100 03/21/19 17:13 87 16 35 03/21/19 17:00 83 12 116/63 (80) 100 03/21/19 16:00 35 03/21/19 16:00 97.5 83 12 105/60 (75) 100 03/21/19 16:00 86 03/21/19 16:00 Mechanical Ventilator 03/21/19 15:36 87 16 100 Mechanical Ventilator 35 87 17 35 03/21/19 15:00 96 17 103/66 (78) 100 03/21/19 14:00 92 15 99/75 (83) 100 Height (Feet): 5 Height (Inches): 4.00 Weight (Pounds): 154 HEENT: status post trach Respiratory/Chest: rhonchi - bilaterally, other - on ventilator Cardiovascular: normal rate, other - HD line Abdomen: soft, non tender, other - GT in place Extremities: no edema Neurologic/Psychiatric: aphasia Laboratory Tests Test 03/22/19 05:59 White Blood Count 9.5 K/UL (4.8-10.8) Red Blood Count 3.87 M/UL (4.20-5.40) L Hemoglobin 12.1 G/DL (12.0-16.0) Hematocrit 36.8 % (37.0-47.0) L Mean Corpuscular Volume 95 FL (80-99) Mean Corpuscular Hemoglobin 31.3 PG (27.0-31.0) H Mean Corpuscular Hemoglobin Concent 32.9 G/DL (32.0-36.0) Red Cell Distribution Width 16.4 % (11.6-14.8) H Platelet Count 366 K/UL (150-450) Mean Platelet Volume 6.6 FL (6.5-10.1) Neutrophils (%) (Auto) 73.5 % (45.0-75.0) Lymphocytes (%) (Auto) 14.7 % (20.0-45.0) L Monocytes (%) (Auto) 4.9 % (1.0-10.0) Eosinophils (%) (Auto) 5.2 % (0.0-3.0) H Basophils (%) (Auto) 1.6 % (0.0-2.0) Sodium Level 139 MMOL/L (136-145) Potassium Level 3.8 MMOL/L (3.5-5.1) Chloride Level 106 MMOL/L (98-107) Carbon Dioxide Level 18 MMOL/L (21-32) L Anion Gap 15 mmol/L (5-15) Blood Urea Nitrogen 37 mg/dL (7-18) H Creatinine 1.7 MG/DL (0.55-1.30) H Estimat Glomerular Filtration Rate 30.3 mL/min (>60) Glucose Level 153 MG/DL (74-106) H Calcium Level 8.9 MG/DL (8.5-10.1) Total Bilirubin 0.5 MG/DL (0.2-1.0) Aspartate Amino Transf (AST/SGOT) 40 U/L (15-37) H Alanine Aminotransferase (ALT/SGPT) 50 U/L (12-78) Alkaline Phosphatase 244 U/L (46-116) H Total Protein 8.2 G/DL (6.4-8.2) Albumin 3.1 G/DL (3.4-5.0) L Globulin 5.1 g/dL Albumin/Globulin Ratio 0.6 (1.0-2.7) L Current Medications Medications (Trade) Dose Ordered Sig/Alex Route PRN Reason Start Time Stop Time Status Last Admin Dose Admin Acetaminophen (Tylenol) 975 mg Q8H PRN RECTAL For Pain 03/21/19 18:00 04/20/19 17:59 Acetaminophen (Tylenol) 1,000 mg Q6H PRN GT Mild Pain/Temp > 100.5 03/21/19 22:00 04/10/19 21:59 Albuterol Sulfate (Proventil) 2.5 mg Q4HRT HHN 03/21/19 23:00 03/26/19 22:59 03/22/19 11:06 Artificial Tears (Lacri-Lube) 1 applic Q4HR RIGHT EYE 03/21/19 21:00 04/14/19 12:59 03/22/19 10:42 Barium Sulfate (Readi-Cat 2) 450 ml NOW PRN ORAL Radiology Procedure 03/21/19 22:30 03/22/19 22:17 Barium Sulfate (Readi-Cat 2) 450 ml NOW PRN ORAL Radiology Procedure 03/21/19 22:30 03/22/19 22:17 Carvedilol (Coreg) 12.5 mg EVERY 12 HOURS GT 03/21/19 21:00 04/10/19 20:59 Cefepime HCl 1 gm/ Dextrose 55 ml @ 110 mls/hr Q24H IVPB 03/22/19 13:00 03/25/19 12:59 Chlorhexidine Gluconate (Rubina-Hex 2%) 1 applic DAILY@2000 TOPIC 03/21/19 20:00 04/11/19 19:59 03/21/19 20:47 Dextrose (Dextrose 50%) 25 ml Q30M PRN IV Hypoglycemia 03/21/19 17:45 04/10/19 17:14 Dextrose (Dextrose 50%) 50 ml Q30M PRN IV Hypoglycemia 03/21/19 17:45 04/10/19 17:14 Dextrose/Sodium Chloride 1,000 ml @ 40 mls/hr Q24H IV 03/21/19 17:30 04/19/19 16:09 03/21/19 18:31 Epoetin Amadou (Epoetin Amadou(ESRD on dialysis)) 10,000 unit ONCE A WEEK SUBQ 03/26/19 21:00 04/18/19 20:59 Heparin Sodium (Porcine) (Heparin Sod 1000 units/ml 10ml) 2,000 unit ONCE PRN IV dialysis 03/22/19 09:00 03/22/19 23:59 Insulin Aspart (NovoLOG) EVERY 6 HOURS SUBQ 03/21/19 18:00 04/10/19 17:59 Insulin Detemir (Levemir) 15 units BEDTIME SUBQ 03/21/19 21:00 04/14/19 20:59 03/21/19 21:53 Iohexol (OMNIPAQUE-300 100ml) 100 ml NOW PRN INJ Radiology Procedure 03/21/19 22:30 03/22/19 22:17 Ipratropium [place] (Atrovent) 500 mcg Q6HRT HHN 03/22/19 01:00 03/27/19 00:59 03/22/19 07:19 Levothyroxine Sodium (Synthroid) 200 mcg QHS GT 03/21/19 21:00 04/10/19 20:59 03/21/19 21:25 Metoclopramide HCl (Reglan) 10 mg EVERY 8 HOURS IVP 03/21/19 22:00 04/18/19 21:59 03/22/19 05:42 Metoclopramide HCl (Reglan) 10 mg Q8H PRN IVP Nausea & Vomiting 03/21/19 18:00 04/19/19 17:59 Morphine Sulfate (Morphine Sulfate) 2 mg Q3H PRN IVP severe pain 03/21/19 18:00 03/23/19 17:59 Moxifloxacin HCl (Vigamox) 1 drop Q12HR RIGHT EYE 03/21/19 21:00 03/23/19 20:59 03/22/19 10:44 Pantoprazole (Protonix) 40 mg DAILY@0630 IVP 03/22/19 06:30 04/19/19 06:29 03/22/19 06:06 Patient Own Medication (Patient's Own Med) 1 ea DAILYPRN PRN RECTAL constipation 03/21/19 18:00 04/10/19 17:59 Patient Own Medication (Patient's Own Med) 2 ea Q4HR OPHTHALM 03/21/19 21:00 04/16/19 12:59 03/22/19 10:42 Polyethylene Glycol (Miralax) 17 gm BEDTIME ORAL 03/21/19 21:00 04/16/19 20:59 03/21/19 21:24 Sodium Chloride (Sodium Chloride Dey-Nicolas 3%) 4 ml Q4HRT INH 03/21/19 19:00 04/16/19 06:59 Vitamin B Complex/ Vit C/Folic Acid (Nephrovite) 1 tab DAILY GT 03/22/19 09:00 04/11/19 08:59 03/22/19 09:32 Gutierrez Edwards MD Mar 22, 2019 13:29
--- NOTE | 2019-03-22 14:00 | NUR ---
NURSE NOTES: Reglan 10mg. IVP held per HD RN.
--- NOTE | 2019-03-22 14:57 | Nephrology Progress Note ---
Assessment/Plan Problem List: (1) End-stage renal disease (2) Sepsis (3) Hypotension (4) Pneumonia Plan HD 03/22 , cont rx infection, vent Subjective ROS Limited/Unobtainable: Yes Objective Objective Last 24 Hour Vital Signs Date Time Temp Pulse Resp B/P (MAP) Pulse Ox O2 Delivery O2 Flow Rate FiO2 03/22/19 14:44 76 14 35 03/22/19 13:59 78 13 100 Mechanical Ventilator 35 79 12 35 03/22/19 12:00 35 03/22/19 12:00 Mechanical Ventilator 03/22/19 12:00 97.4 75 12 123/68 (86) 100 03/22/19 11:46 75 03/22/19 11:07 81 14 100 Mechanical Ventilator 35 81 13 35 03/22/19 09:12 76 13 35 03/22/19 09:00 76 125/67 03/22/19 08:00 Mechanical Ventilator 03/22/19 08:00 98.4 69 12 125/67 (86) 100 03/22/19 08:00 35 03/22/19 07:42 67 03/22/19 07:19 80 14 100 Mechanical Ventilator 35 80 14 35 03/22/19 05:26 70 15 35 03/22/19 04:00 35 03/22/19 04:00 69 03/22/19 04:00 Mechanical Ventilator 03/22/19 04:00 97.5 68 20 122/59 (80) 100 03/22/19 02:35 72 14 100 Mechanical Ventilator 35 70 12 35 03/22/19 01:21 65 12 35 03/22/19 00:03 Mechanical Ventilator 03/22/19 00:00 96.6 65 16 101/56 (71) 100 03/22/19 00:00 69 03/21/19 23:32 70 13 100 Mechanical Ventilator 35 70 12 35 03/21/19 22:54 68 15 107/66 (80) 100 03/21/19 21:28 79 12 35 03/21/19 21:00 74 86/48 03/21/19 20:00 35 03/21/19 20:00 Mechanical Ventilator 03/21/19 20:00 97.6 90 18 101/56 (71) 100 03/21/19 19:54 81 12 35 03/21/19 18:00 90 12 99/55 (70) 100 03/21/19 17:13 87 16 35 03/21/19 17:00 83 12 116/63 (80) 100 03/21/19 16:00 35 03/21/19 16:00 97.5 83 12 105/60 (75) 100 03/21/19 16:00 86 03/21/19 16:00 Mechanical Ventilator 03/21/19 15:36 87 16 100 Mechanical Ventilator 35 87 17 35 03/21/19 15:00 96 17 103/66 (78) 100 Intake and Output 03/21/19 03/22/19 18:59 06:59 Intake Total 40 ml 19.44429 ml Balance 40 ml 19.85412 ml IV Total 40 ml 19.32911 ml Laboratory Tests 03/22/19 05:59: White Blood Count 9.5, Red Blood Count 3.87L, Hemoglobin 12.1, Hematocrit 36.8L , Mean Corpuscular Volume 95, Mean Corpuscular Hemoglobin 31.3H, Mean Corpuscular Hemoglobin Concent 32.9, Red Cell Distribution Width 16.4H, Platelet Count 366, Mean Platelet Volume 6.6, Neutrophils (%) (Auto) 73.5, Lymphocytes (%) (Auto) 14.7L, Monocytes (%) (Auto) 4.9, Eosinophils (%) (Auto) 5.2H, Basophils (%) (Auto) 1.6, Sodium Level 139, Potassium Level 3.8, Chloride Level 106, Carbon Dioxide Level 18L, Anion Gap 15, Blood Urea Nitrogen 37H, Creatinine 1.7H, Estimat Glomerular Filtration Rate 30.3, Glucose Level 153H, Calcium Level 8.9, Total Bilirubin 0.5, Aspartate Amino Transf (AST/SGOT) 40H, Alanine Aminotransferase (ALT/SGPT) 50, Alkaline Phosphatase 244H, Total Protein 8.2, Albumin 3.1L, Globulin 5.1, Albumin/Globulin Ratio 0.6L Height (Feet): 5 Height (Inches): 4.00 Weight (Pounds): 154 General Appearance: morbidly obese EENT: normal ENT inspection Neck: other - trach Cardiovascular: normal rate, regular rhythm Respiratory/Chest: rhonchi - bilaterally Abdomen: soft, no organomegaly Extremities: trace edema Neurologic: other - weakx4 ext Kamran Ayala MD Mar 22, 2019 14:57
[2019-03-22 16:00] VITALS: BP 148/73
[2019-03-22] MEDS ORDERED: Sterile Water For Irrig 2000ml IRRIG ONE (16:03)
[2019-03-22] MEDS ORDERED: D5NS 1000ml IV ONE (16:03)
--- NOTE | 2019-03-22 17:30 | Pulmonology Progress Note ---
Assessment/Plan Assessment/Plan Pulmonary Progress Note Assessment/Plan chronic respiratory failure chronic encephalopathy trach CRF on HD GT constipation increase in residual hypertension diabetes s/p GT-->JT conversion intolerance of meds gastroparesis + pseudomonas hypotension ? sepsis or fluid related PLAN ID followup defer antibiotics to ID currently hemodynamics improved vent as is/ on full support feeds as able/ gi to assist sister does not want JT at this time reglan IV routine complete cefepime monitor feeds and residuals gt to suction HD and monitor lytes and monitor fluid status skin care and off load monitor hemodynamics chronic care-without change monitor sugars not ready for dc yet support as able full code medications/laboratory data/nursing notes/ICU care reviewed in detail note reviewed and edited care discussed with RN and RT Subjective ROS Limited/Unobtainable: Yes Allergies: Coded Allergies: OLANZAPINE (Verified Allergy, Severe, RESP FAILURE, 11/25/13) VANCOMYCIN (Verified Allergy, Severe, 11/25/13) PIPERACILLIN (Verified Allergy, Intermediate, HIVES, 11/25/13) TAZOBACTAM (Verified Allergy, Intermediate, HIVES, 11/25/13) Subjective care noted and reviewed hypotensive last night bolus NS with good results transferred to ICU was planned to dc home but cancelled d/w all consultants and sister in detail Objective Vital Signs Noted Objective WDWN NAD trach poor LOC reduced breath sounds bilaterally with occasional rhonchi [id number] without MRG NABS nontender no HSM no CCE nonfocal poorly responsive at present skin exam noted gt feeds Laboratory Tests 03/20/19 22:02: Sodium Level 143, Potassium Level 3.4L, Chloride Level 108H, Carbon Dioxide Level 20L, Anion Gap 15, Blood Urea Nitrogen 27H, Creatinine 1.3, Estimat Glomerular Filtration Rate 41.3, Glucose Level 147H, Calcium Level 9.1, Total Bilirubin 0.5, Aspartate Amino Transf (AST/SGOT) 30, Alanine Aminotransferase ( ALT/SGPT) 39, Alkaline Phosphatase 240H, Total Protein 8.6H, Albumin 3.1L, Globulin 5.5, Albumin/Globulin Ratio 0.6L 03/20/19 22:52: White Blood Count 11.5H, Red Blood Count 4.10L, Hemoglobin 12.9, Hematocrit 37.9 , Mean Corpuscular Volume 92, Mean Corpuscular Hemoglobin 31.5H, Mean Corpuscular Hemoglobin Concent 34.1, Red Cell Distribution Width 16.3H, Platelet Count 377, Mean Platelet Volume 6.4L, Neutrophils (%) (Auto) 73.4, Lymphocytes (%) (Auto) 17.5L, Monocytes (%) (Auto) 5.3, Eosinophils (%) (Auto) 2.2, Basophils (%) (Auto) 1.5 Current Medications Medications (Trade) Dose Ordered Sig/Alex Route PRN Reason Start Time Stop Time Status Last Admin Dose Admin Acetaminophen (Tylenol) 975 mg EVERY 8 HOURS PRN RECTAL For Pain 03/19/19 22:00 04/18/19 21:59 03/21/19 03:00 Acetaminophen (Tylenol) 1,000 mg Q6H PRN GT Mild Pain/Temp > 100.5 03/15/19 12:45 04/10/19 16:29 03/19/19 16:07 Albuterol Sulfate (Proventil) 2.5 mg Q4HRT HHN 03/16/19 19:00 03/21/19 14:59 03/21/19 10:56 Artificial Tears (Lacri-Lube) 1 applic Q4HR RIGHT EYE 03/15/19 13:00 04/14/19 12:59 03/21/19 12:46 Barium Sulfate (Readi-Cat 2) 450 ml NOW PRN ORAL Radiology Procedure 03/20/19 22:30 03/22/19 22:17 Barium Sulfate (Readi-Cat 2) 450 ml NOW PRN ORAL Radiology Procedure 03/20/19 22:30 03/22/19 22:17 Carvedilol (Coreg) 12.5 mg EVERY 12 HOURS GT 03/11/19 21:00 04/10/19 20:59 03/16/19 09:21 Cefepime HCl 1 gm/ Dextrose 55 ml @ 110 mls/hr Q24H IVPB 03/18/19 13:00 03/25/19 12:59 03/21/19 12:45 Chlorhexidine Gluconate (Rubina-Hex 2%) 1 applic DAILY@2000 TOPIC 03/12/19 20:00 04/11/19 19:59 03/20/19 20:33 Dextrose (Dextrose 50%) 25 ml Q30M PRN IV Hypoglycemia 03/11/19 17:15 04/10/19 17:14 Dextrose (Dextrose 50%) 50 ml Q30M PRN IV Hypoglycemia 03/11/19 17:15 04/10/19 17:14 Dextrose/Sodium Chloride 1,000 ml @ 40 mls/hr Q24H IV 03/20/19 16:10 04/19/19 16:09 03/20/19 16:56 Epoetin Amadou (Epoetin Amadou(ESRD on dialysis)) 10,000 unit ONCE A WEEK SUBQ 03/19/19 21:00 04/18/19 20:59 Insulin Aspart (NovoLOG) EVERY 6 HOURS SUBQ 03/11/19 18:00 04/10/19 17:59 03/21/19 12:45 Insulin Detemir (Levemir) 15 units BEDTIME SUBQ 03/15/19 21:00 04/14/19 20:59 03/19/19 21:25 Iohexol (OMNIPAQUE-300 100ml) 100 ml NOW PRN INJ Radiology Procedure 03/20/19 22:30 03/22/19 22:17 Ipratropium [place] (Atrovent) 500 mcg Q4HRT HHN 03/16/19 19:00 03/21/19 14:59 03/21/19 10:56 Levothyroxine Sodium (Synthroid) 200 mcg QHS GT 03/11/19 21:00 04/10/19 20:59 03/19/19 21:16 Metoclopramide HCl (Reglan) 10 mg EVERY 8 HOURS IVP 03/19/19 22:00 04/18/19 21:59 03/21/19 05:48 Metoclopramide HCl (Reglan) 10 mg Q8H PRN IVP Nausea & Vomiting 03/20/19 11:00 04/19/19 10:59 03/20/19 10:54 Morphine Sulfate (Morphine Sulfate) 2 mg Q3H PRN IVP severe pain 03/16/19 16:45 03/23/19 16:29 03/19/19 01:34 Moxifloxacin HCl (Vigamox) 1 drop Q12HR RIGHT EYE 03/16/19 21:00 03/23/19 20:59 03/21/19 01:44 Pantoprazole (Protonix) 40 mg DAILY@0630 IVP 03/20/19 06:30 04/19/19 06:29 03/21/19 05:58 Patient Own Medication (Patient's Own Med) 1 ea DAILYPRN PRN RECTAL constipation 03/11/19 21:15 04/10/19 21:14 03/19/19 12:15 Patient Own Medication (Patient's Own Med) 2 ea Q4HR OPHTHALM 03/17/19 13:00 04/16/19 12:59 03/21/19 12:46 Polyethylene Glycol (Miralax) 17 gm BEDTIME ORAL 03/17/19 21:00 04/16/19 20:59 03/19/19 21:16 Sodium Chloride (Sodium Chloride Dey-Nicolas 3%) 4 ml Q4HRT INH 03/17/19 07:00 04/16/19 06:59 03/19/19 19:44 Vitamin B Complex/ Vit C/Folic Acid (Nephrovite) 1 tab DAILY GT 03/12/19 09:00 04/11/19 08:59 03/21/19 09:31 Subjective ROS Limited/Unobtainable: No Allergies: Coded Allergies: OLANZAPINE (Verified Allergy, Severe, RESP FAILURE, 11/25/13) VANCOMYCIN (Verified Allergy, Severe, 11/25/13) PIPERACILLIN (Verified Allergy, Intermediate, HIVES, 11/25/13) TAZOBACTAM (Verified Allergy, Intermediate, HIVES, 11/25/13) Objective Last 24 Hour Vital Signs Date Time Temp Pulse Resp B/P (MAP) Pulse Ox O2 Delivery O2 Flow Rate FiO2 03/22/19 16:00 35 03/22/19 16:00 97.7 74 12 148/73 (98) 100 03/22/19 16:00 Mechanical Ventilator 03/22/19 15:41 77 17 100 Mechanical Ventilator 35 79 14 35 03/22/19 15:24 78 03/22/19 14:44 76 14 35 03/22/19 13:59 78 13 100 Mechanical Ventilator 35 79 12 35 03/22/19 12:00 35 03/22/19 12:00 Mechanical Ventilator 03/22/19 12:00 97.4 75 12 123/68 (86) 100 03/22/19 11:46 75 03/22/19 11:07 81 14 100 Mechanical Ventilator 35 81 13 35 03/22/19 09:12 76 13 35 03/22/19 09:00 76 125/67 03/22/19 08:00 Mechanical Ventilator 03/22/19 08:00 98.4 69 12 125/67 (86) 100 03/22/19 08:00 35 03/22/19 07:42 67 03/22/19 07:19 80 14 100 Mechanical Ventilator 35 80 14 35 03/22/19 05:26 70 15 35 03/22/19 04:00 35 03/22/19 04:00 69 03/22/19 04:00 Mechanical Ventilator 03/22/19 04:00 97.5 68 20 122/59 (80) 100 03/22/19 02:35 72 14 100 Mechanical Ventilator 35 70 12 35 03/22/19 01:21 65 12 35 03/22/19 00:03 Mechanical Ventilator 03/22/19 00:00 96.6 65 16 101/56 (71) 100 03/22/19 00:00 69 03/21/19 23:32 70 13 100 Mechanical Ventilator 35 70 12 35 03/21/19 22:54 68 15 107/66 (80) 100 03/21/19 21:28 79 12 35 03/21/19 21:00 74 86/48 03/21/19 20:00 35 03/21/19 20:00 Mechanical Ventilator 03/21/19 20:00 97.6 90 18 101/56 (71) 100 03/21/19 19:54 81 12 35 03/21/19 18:00 90 12 99/55 (70) 100 Intake and Output 03/21/19 03/22/19 19:00 07:00 Intake Total 19.27773 ml 40 ml Balance 19.36645 ml 40 ml IV Total 19.95550 ml 40 ml Laboratory Tests 03/22/19 05:59: White Blood Count 9.5, Red Blood Count 3.87L, Hemoglobin 12.1, Hematocrit 36.8L , Mean Corpuscular Volume 95, Mean Corpuscular Hemoglobin 31.3H, Mean Corpuscular Hemoglobin Concent 32.9, Red Cell Distribution Width 16.4H, Platelet Count 366, Mean Platelet Volume 6.6, Neutrophils (%) (Auto) 73.5, Lymphocytes (%) (Auto) 14.7L, Monocytes (%) (Auto) 4.9, Eosinophils (%) (Auto) 5.2H, Basophils (%) (Auto) 1.6, Sodium Level 139, Potassium Level 3.8, Chloride Level 106, Carbon Dioxide Level 18L, Anion Gap 15, Blood Urea Nitrogen 37H, Creatinine 1.7H, Estimat Glomerular Filtration Rate 30.3, Glucose Level 153H, Calcium Level 8.9, Total Bilirubin 0.5, Aspartate Amino Transf (AST/SGOT) 40H, Alanine Aminotransferase (ALT/SGPT) 50, Alkaline Phosphatase 244H, Total Protein 8.2, Albumin 3.1L, Globulin 5.1, Albumin/Globulin Ratio 0.6L Current Medications Medications (Trade) Dose Ordered Sig/Alex Route PRN Reason Start Time Stop Time Status Last Admin Dose Admin Acetaminophen (Tylenol) 975 mg Q8H PRN RECTAL For Pain 03/21/19 18:00 04/20/19 17:59 Acetaminophen (Tylenol) 1,000 mg Q6H PRN GT Mild Pain/Temp > 100.5 03/21/19 22:00 04/10/19 21:59 Albuterol Sulfate (Proventil) 2.5 mg Q4HRT HHN 03/21/19 23:00 03/26/19 22:59 03/22/19 15:41 Artificial Tears (Lacri-Lube) 1 applic Q4HR RIGHT EYE 03/21/19 21:00 04/14/19 12:59 03/22/19 13:46 Barium Sulfate (Readi-Cat 2) 450 ml NOW PRN ORAL Radiology Procedure 03/21/19 22:30 03/22/19 22:17 Barium Sulfate (Readi-Cat 2) 450 ml NOW PRN ORAL Radiology Procedure 03/21/19 22:30 03/22/19 22:17 Carvedilol (Coreg) 12.5 mg EVERY 12 HOURS GT 03/21/19 21:00 04/10/19 20:59 Cefepime HCl 1 gm/ Dextrose 55 ml @ 110 mls/hr Q24H IVPB 03/22/19 13:00 03/25/19 12:59 Chlorhexidine Gluconate (Rubina-Hex 2%) 1 applic DAILY@2000 TOPIC 03/21/19 20:00 04/11/19 19:59 03/21/19 20:47 Dextrose (Dextrose 50%) 25 ml Q30M PRN IV Hypoglycemia 03/21/19 17:45 04/10/19 17:14 Dextrose (Dextrose 50%) 50 ml Q30M PRN IV Hypoglycemia 03/21/19 17:45 04/10/19 17:14 Dextrose/Sodium Chloride 1,000 ml @ 40 mls/hr Q24H IV 03/21/19 17:30 04/19/19 16:09 03/21/19 18:31 Epoetin Amadou (Epoetin Amadou(ESRD on dialysis)) 10,000 unit ONCE A WEEK SUBQ 03/26/19 21:00 04/18/19 20:59 Heparin Sodium (Porcine) (Heparin Sod 1000 units/ml 10ml) 2,000 unit ONCE PRN IV dialysis 03/22/19 09:00 03/22/19 23:59 Insulin Aspart (NovoLOG) EVERY 6 HOURS SUBQ 03/21/19 18:00 04/10/19 17:59 Insulin Detemir (Levemir) 15 units BEDTIME SUBQ 03/21/19 21:00 04/14/19 20:59 03/21/19 21:53 Iohexol (OMNIPAQUE-300 100ml) 100 ml NOW PRN INJ Radiology Procedure 03/21/19 22:30 03/22/19 22:17 Ipratropium [place] (Atrovent) 500 mcg Q6HRT HHN 03/22/19 01:00 03/27/19 00:59 03/22/19 13:59 Levothyroxine Sodium (Synthroid) 200 mcg QHS GT 03/21/19 21:00 04/10/19 20:59 03/21/19 21:25 Metoclopramide HCl (Reglan) 10 mg EVERY 8 HOURS IVP 03/21/19 22:00 04/18/19 21:59 03/22/19 05:42 Metoclopramide HCl (Reglan) 10 mg Q8H PRN IVP Nausea & Vomiting 03/21/19 18:00 04/19/19 17:59 Morphine Sulfate (Morphine Sulfate) 2 mg Q3H PRN IVP severe pain 03/21/19 18:00 03/23/19 17:59 Moxifloxacin HCl (Vigamox) 1 drop Q12HR RIGHT EYE 03/21/19 21:00 03/23/19 20:59 03/22/19 10:44 Pantoprazole (Protonix) 40 mg DAILY@0630 IVP 03/22/19 06:30 04/19/19 06:29 03/22/19 06:06 Patient Own Medication (Patient's Own Med) 1 ea DAILYPRN PRN RECTAL constipation 03/21/19 18:00 04/10/19 17:59 Patient Own Medication (Patient's Own Med) 2 ea Q4HR OPHTHALM 03/21/19 21:00 04/16/19 12:59 03/22/19 13:46 Polyethylene Glycol (Miralax) 17 gm BEDTIME ORAL 03/21/19 21:00 04/16/19 20:59 03/21/19 21:24 Sodium Chloride (Sodium Chloride Dey-Nicolas 3%) 4 ml Q4HRT INH 03/21/19 19:00 04/16/19 06:59 Vitamin B Complex/ Vit C/Folic Acid (Nephrovite) 1 tab DAILY GT 03/22/19 09:00 04/11/19 08:59 03/22/19 09:32 Ramo Kelsey MD Mar 22, 2019 17:30
--- NOTE | 2019-03-22 18:41 | NUR ---
NURSE NOTES: Called Dr. Mayte majano (sister request) to ask MD if we can access GT instead of JT. Awaiting for response.
--- NOTE | 2019-03-22 19:00 | NUR ---
RESPIRATORY NOTE:pt recieved on set values, no signs of SOB or discomfort noted, pt has personal nurse at bed side that assist with suction of pt and trach care of pt, HHN given, alarms are on and audible and vent is plugged into red outlet, will continue to monitor the pts progress
--- NOTE | 2019-03-22 19:41 | NUR ---
HAND-OFF: Report given to Rosetta VILLARREAL. Pt. remain stable. Received order from Dr. Roldan. pm shift RN aware.
--- NOTE | 2019-03-22 19:42 | NUR ---
NURSE NOTES: received pt from [place] RN., pt is resting at the bed. pt's sister at the bedside. pt is at NPO at this moment. pt's Side rails x2 up. trach is intact (O2sat is 100%) , call light within reach. will continue with plan of care.
[2019-03-22 20:00] VITALS: BP 102/65
--- NOTE | 2019-03-22 20:23 | NUR ---
NURSE NOTES: DR. mcneal ordered to start feeding Via Gtube as sister requested. will continue to monitor pt.
--- NOTE | 2019-03-22 20:26 | NUR ---
NURSE NOTES: started feeing via Gtube, residual Gtube is only 25ml. will continue to monitor. Addendum: 03/22/19 at 2215 by TAYLOR SANCHES RN wrong amount of residual
--- NOTE | 2019-03-22 20:26 | NUR ---
NURSE NOTES: started feeing via Hiphuntersube, residual is only 7ml. will continue to monitor
[2019-03-22] MEDS: Miralax 17gm pkt ORAL SCH (20:39)
[2019-03-22] MEDS: Dyna-Hex 2% Top Sol 2oz TOPIC SCH (20:46)
[2019-03-22] MEDS: Levemir Flexpen SUBQ SCH (20:48)
--- NOTE | 2019-03-22 21:00 | NUR ---
NURSE NOTES: per sister request (family member) will not administer synthroid and miralax that is scheduled
--- NOTE | 2019-03-22 22:30 | NUR ---
NURSE NOTES: per sister (family) requested, wont remove the IV that is on right hand. pt's family wants to keep it with pt unless its red, swollen, and not able to flush with NS. DAVIN Mccain is at the bedside. will continue to monitor.
--- NOTE | 2019-03-22 22:32 | NUR ---
NURSE NOTES: flushed J tube, no resistance noted.
[2019-03-23] VITALS: BP_SYST 127; BP_SYST 137; BP_DIAS 70
[2019-03-23] MEDS: SYSTANE ULTRA OPHTHALM SCH ×6 (00:22→21:50)
[2019-03-23] MEDS: Lacri-Lube Opth Oint 3.5gm RIGHT EYE SCH ×6 (00:23→22:03)
[2019-03-23] MEDS: Ipratropium 0.02% Inh Soln 2.5ml UD HHN SCH ×4 (01:00→19:55)
[2019-03-23 04:00] VITALS: BP 110/59
[2019-03-23] MEDS: Albuterol ud Inhalation HHN SCH ×6 (04:19→23:39)
[2019-03-23] MEDS: NovoLOG Insulin Flexpen SUBQ SCH ×4 (06:00→18:00)
[2019-03-23] MEDS: Metoclopramide 10mg/2ml Inj IVP SCH ×3 (06:01→21:36)
[2019-03-23] MEDS: Pantoprazole Inj IVP SCH (06:01)
[2019-03-23] MEDS: Sodium Chloride 3% 4ml Nebul Soln INH SCH ×5 (07:00→23:00)
--- NOTE | 2019-03-23 07:19 | NUR ---
RESPIRATORY NOTE: Received pt on current vent settings AC 12 VT 450, 35%, PEEP +5. Per caregiver, she just suctioned pt. Breathing treatment given with no adverse effects. Mentioned to caregiver about breathing treatment to change frequency of Atrovent from Q6 to Q4, she said sister is okay with it. Sister also mentioned to me yesterday that "she's ok with changing the frequency of atrovent Q6 to Q4." Pt trach with portex bivona 8 and cuffed. Alarms are on and audible. [place] and back up trach bedside. Will mention to nurse. Will continue to monitor.
--- NOTE | 2019-03-23 07:52 | General Progress Note ---
Assessment/Plan Status: stable Assessment/Plan: Assessment - Resolved stool impaction - G TF intolerance - s/p G--> GJ conversion, - Resp failure / trach - renal failure - contracted / vegetative state - high decub risk - hypotension / leukocytosis - ? volume vs sepsis -> much improved overnight Recommendations - CT C/A/P, pending sister approval - Reglan trial - IVF , abx - sepsis w/u - decub prevention - guarded -resume JTF slowly>> D/W nurses Subjective ROS Limited/Unobtainable: No Allergies: Coded Allergies: OLANZAPINE (Verified Allergy, Severe, RESP FAILURE, 11/25/13) VANCOMYCIN (Verified Allergy, Severe, 11/25/13) PIPERACILLIN (Verified Allergy, Intermediate, HIVES, 11/25/13) TAZOBACTAM (Verified Allergy, Intermediate, HIVES, 11/25/13) Objective Last 24 Hour Vital Signs Date Time Temp Pulse Resp B/P (MAP) Pulse Ox O2 Delivery O2 Flow Rate FiO2 03/23/19 07:19 67 16 100 Mechanical Ventilator 35 64 14 35 03/23/19 05:30 74 14 35 03/23/19 05:06 72 03/23/19 04:00 96.6 70 15 110/59 (76) 100 03/23/19 04:00 Mechanical Ventilator 03/23/19 04:00 35 03/23/19 03:30 70 14 100 Mechanical Ventilator 35 70 14 35 03/23/19 01:00 77 16 35 03/23/19 00:00 96.8 80 19 127/70 (89) 100 03/23/19 00:00 Mechanical Ventilator 03/22/19 23:54 74 03/22/19 23:45 75 15 100 Mechanical Ventilator 35 75 15 35 03/22/19 21:19 79 14 35 03/22/19 20:46 78 102/65 03/22/19 20:00 Mechanical Ventilator 03/22/19 20:00 96.8 78 15 102/65 (77) 100 03/22/19 20:00 35 03/22/19 19:29 77 03/22/19 19:16 78 12 100 Mechanical Ventilator 35 78 12 35 03/22/19 16:00 35 03/22/19 16:00 97.7 74 12 148/73 (98) 100 03/22/19 16:00 Mechanical Ventilator 03/22/19 15:41 77 17 100 Mechanical Ventilator 35 79 14 35 03/22/19 15:24 78 03/22/19 14:44 76 14 35 03/22/19 13:59 78 13 100 Mechanical Ventilator 35 79 12 35 03/22/19 12:00 35 03/22/19 12:00 Mechanical Ventilator 03/22/19 12:00 97.4 75 12 123/68 (86) 100 03/22/19 11:46 75 03/22/19 11:07 81 14 100 Mechanical Ventilator 35 81 13 35 03/22/19 09:12 76 13 35 03/22/19 09:00 76 125/67 03/22/19 08:00 Mechanical Ventilator 03/22/19 08:00 98.4 69 12 125/67 (86) 100 03/22/19 08:00 35 Intake and Output 03/22/19 03/23/19 19:00 07:00 Intake Total 480 ml 1080 ml Balance 480 ml 1080 ml Intake Free Water 80 ml IV Total 480 ml 440 ml Tube Feeding 210 ml Other 350 ml # Bowel Movements 2 Height (Feet): 5 Height (Inches): 4.00 Weight (Pounds): 154 General Appearance: no apparent distress EENT: normal ENT inspection Neck: supple Cardiovascular: normal rate Respiratory/Chest: decreased breath sounds Abdomen: normal bowel sounds, non tender, soft Extremities: non-tender Earl Roldan MD Mar 23, 2019 07:52
--- NOTE | 2019-03-23 07:55 | NUR ---
HAND-OFF: Report given to Gaye VILLARREAL. pt is resting on the bed, director critical care at the bedside. pt V/S are stable.
[2019-03-23 08:00] VITALS: BP 133/71
--- NOTE | 2019-03-23 08:20 | NUR ---
NURSE NOTES: Late entry (correct time 0755): Pt received from Yanet Hartley RN in stable condition w/no cardiopulmonary distress noted. Pt is asleep in bed, trache to vent AC12 TV450 FiO2 35% Peep 5. G-J tube noted. GT lumen is running Glucerna 1.5 at 25cc/hr with residual of30cc. Jtube flushed w/ 30cc H20 with mild resistance. Portacath noted in Left upper chest. LH 22g and RH 22g IVs noted. No skin alterations noted at this time. Bed is lowest position, alarm on,call light within reach, side rails up x2,caregiver Kalyn at bedside, will continue to monitor pt. Left a message for Dr. Evans regarding lack of DVT prophylaxis. Awaiting callback.
--- NOTE | 2019-03-23 08:43 | NUR ---
RD ASSESSMENT & RECOMMENDATIONS SEE CARE ACTIVITY FOR COMPLETE ASSESSMENT DAILY ESTIMATED NEEDS: Needs based on Critical care, [employer]ENTICE TF, HD/ 51.5kg abw 22-31 kcals/kg 5231-9092 total kcals 1.2-2 g protein/kg 62-103 g total protein 20-22 mL/kg 0424-7021 total fluid mLs NUTRITION DIAGNOSIS: 1) Increased kcal/prot needs R/T ESRD as evidenced by pt is HD dependent. 2) Swallowing difficulty R/T respiratory status as evidenced by pt vent dep via trach, s/p GJ conversion, on Jtube feedings. 3) Altered nutrition related lab values R/T renal dysfunction, electrolyte imbalance, diabetes as evidenced by critically low K (2.7-> now 3.4), elev creat (1.8-> 1.3), elev POC glu ([phone]). CURRENT TF: now Glucerna 1.2@30 x22 hrs (03/23) ENTERAL NUTRITION RECOMMENDATIONS: IF TOLERATED rec goal of Glucerna 1.2 @ 45ml/hr x 22 hrs + Prosource BID to provide 990ml, 1188kcal, 59g + 22gpro, 797ml free water * IF PT TOLERATES GLUCERNA 1.2, REC TO INCREASE TO GOAL RATE OF 45ML/HR X22 HRS TO BETTER MEET EST NEEDS * Add PROSOURCE BID to better meet est pro needs * While on Glucerna, check K labs daily as at goal rate Glucerna 1.2 provides 2000mg K daily. * Hold 1 hr before and after Synthroid med * HOB >45 degrees/Free H20 flushes per MD --- Will update/ reassess TF goal once lower rate is tolerated. --- IF NEPRO IS RESUMED: -Rec bolus feeding of 8oz Nepro @ B & L & D + 4oz Nepro @ HS to provide 829ml, 1487kcal, 67g prot. ADDITIONAL RECOMMENDATIONS: 1) RECALIBRATED bedscale wt for accurate CBW 2) Monitor lytes, replete as needed 3) Monitor TF tolerance: admitted w/ c/o elev TF residuals -> s/p GJ conversion, feeds now via Jport 4) W/ TF change to Glucerna 1.2, monitor lytes closely, need to switch back to Nepro (03/20 labs: K 3.4, Creat 1.3, BUN 27)
[2019-03-23] MEDS: Carvedilol 12.5mg tab GT SCH ×2 (09:00→21:27)
--- NOTE | 2019-03-23 09:00 | NUR ---
NURSE NOTES: Spoke with Fredi at Home living Provider home health at [phone] and made aware patient for discharge and needs feeding pump. per fredi can provide on Sunday sister made aware. [facility] [phone] spoke with Jeniffer gamez patient needs certain medications Dr. Karen gamez sent prescriptions. Faxed h/p. progress notes,MAR, and insurance. Jeniffer confirmed received all informations.
[2019-03-23] MEDS: Nephrovite tab (Rena-Vite) GT SCH (09:05)
[2019-03-23] MEDS: Vigamox Opth Soln 3ml RIGHT EYE SCH (09:06)
[2019-03-23] MEDS: D5NS 1,000 ML IV SCH ×2 (09:18→18:03)
--- NOTE | 2019-03-23 09:20 | Infectious Diseases Prog Note ---
Assessment/Plan Assessment/Plan A; 1. Pseudomonas pneumonia. 2. Leukocytosis. 3. Respiratory failure on ventilator 4. Diabetes. 5. Hypertension. 6. Fecal impaction 7. ESRD on HD PLAN: 1. Continue IV cefepime X 2 Subjective ROS Limited/Unobtainable: Yes Allergies: Coded Allergies: OLANZAPINE (Verified Allergy, Severe, RESP FAILURE, 11/25/13) VANCOMYCIN (Verified Allergy, Severe, 11/25/13) PIPERACILLIN (Verified Allergy, Intermediate, HIVES, 11/25/13) TAZOBACTAM (Verified Allergy, Intermediate, HIVES, 11/25/13) Objective Vital Signs Last 24 Hour Vital Signs Date Time Temp Pulse Resp B/P (MAP) Pulse Ox O2 Delivery O2 Flow Rate FiO2 03/23/19 08:41 65 16 35 03/23/19 08:00 97.7 63 12 133/71 (91) 100 03/23/19 07:19 67 16 100 Mechanical Ventilator 35 64 14 35 03/23/19 05:30 74 14 35 03/23/19 05:06 72 03/23/19 04:00 96.6 70 15 110/59 (76) 100 03/23/19 04:00 Mechanical Ventilator 03/23/19 04:00 35 03/23/19 03:30 70 14 100 Mechanical Ventilator 35 70 14 35 03/23/19 01:00 77 16 35 03/23/19 00:00 96.8 80 19 127/70 (89) 100 03/23/19 00:00 Mechanical Ventilator 03/22/19 23:54 74 03/22/19 23:45 75 15 100 Mechanical Ventilator 35 75 15 35 03/22/19 21:19 79 14 35 03/22/19 20:46 78 102/65 03/22/19 20:00 Mechanical Ventilator 03/22/19 20:00 96.8 78 15 102/65 (77) 100 03/22/19 20:00 35 03/22/19 19:29 77 03/22/19 19:16 78 12 100 Mechanical Ventilator 35 78 12 35 03/22/19 16:00 35 03/22/19 16:00 97.7 74 12 148/73 (98) 100 03/22/19 16:00 Mechanical Ventilator 03/22/19 15:41 77 17 100 Mechanical Ventilator 35 79 14 35 9/28/19 15:24 78 03/22/19 14:44 76 14 35 03/22/19 13:59 78 13 100 Mechanical Ventilator 35 79 12 35 03/22/19 12:00 35 03/22/19 12:00 Mechanical Ventilator 03/22/19 12:00 97.4 75 12 123/68 (86) 100 03/22/19 11:46 75 03/22/19 11:07 81 14 100 Mechanical Ventilator 35 81 13 35 Height (Feet): 5 Height (Inches): 4.00 Weight (Pounds): 154 General Appearance: no acute distress HEENT: status post trach Respiratory/Chest: rhonchi - bilaterally, other - on ventilator Cardiovascular: normal rate Abdomen: soft, non tender, other - GT feeding Extremities: no edema Neurologic/Psychiatric: aphasia Microbiology Date/Time Source Procedure Growth Status 03/20/19 20:30 Blood Blood Culture - Preliminary NO GROWTH AFTER 48 HOURS Resulted 03/20/19 20:20 Blood Blood Culture - Preliminary NO GROWTH AFTER 48 HOURS Resulted Current Medications Medications (Trade) Dose Ordered Sig/Alex Route PRN Reason Start Time Stop Time Status Last Admin Dose Admin Acetaminophen (Tylenol) 975 mg Q8H PRN RECTAL For Pain 03/21/19 18:00 04/20/19 17:59 Acetaminophen (Tylenol) 1,000 mg Q6H PRN GT Mild Pain/Temp > 100.5 03/21/19 22:00 04/10/19 21:59 Albuterol Sulfate (Proventil) 2.5 mg Q4HRT HHN 03/21/19 23:00 03/26/19 22:59 03/23/19 07:18 Artificial Tears (Lacri-Lube) 1 applic Q4HR RIGHT EYE 03/21/19 21:00 04/14/19 12:59 03/23/19 09:06 Carvedilol (Coreg) 12.5 mg EVERY 12 HOURS GT 03/21/19 21:00 04/10/19 20:59 Cefepime HCl 1 gm/ Dextrose 55 ml @ 110 mls/hr Q24H IVPB 03/22/19 13:00 03/25/19 12:59 Chlorhexidine Gluconate (Rubina-Hex 2%) 1 applic DAILY@2000 TOPIC 03/21/19 20:00 04/11/19 19:59 03/22/19 20:46 Dextrose (Dextrose 50%) 25 ml Q30M PRN IV Hypoglycemia 03/21/19 17:45 04/10/19 17:14 Dextrose (Dextrose 50%) 50 ml Q30M PRN IV Hypoglycemia 03/21/19 17:45 04/10/19 17:14 Dextrose/Sodium Chloride 1,000 ml @ 40 mls/hr Q24H IV 03/21/19 17:30 04/19/19 16:09 03/21/19 18:31 Epoetin Amadou (Epoetin Amadou(ESRD on dialysis)) 10,000 unit ONCE A WEEK SUBQ 03/26/19 21:00 04/18/19 20:59 Insulin Aspart (NovoLOG) EVERY 6 HOURS SUBQ 03/21/19 18:00 04/10/19 17:59 Insulin Detemir (Levemir) 15 units BEDTIME SUBQ 03/21/19 21:00 04/14/19 20:59 03/21/19 21:53 Ipratropium [place] (Atrovent) 500 mcg Q6HRT HHN 03/22/19 01:00 03/27/19 00:59 03/23/19 07:18 Levothyroxine Sodium (Synthroid) 200 mcg QHS GT 03/21/19 21:00 04/10/19 20:59 03/21/19 21:25 Metoclopramide HCl (Reglan) 10 mg EVERY 8 HOURS IVP 03/21/19 22:00 04/18/19 21:59 03/23/19 06:01 Metoclopramide HCl (Reglan) 10 mg Q8H PRN IVP Nausea & Vomiting 03/21/19 18:00 04/19/19 17:59 Morphine Sulfate (Morphine Sulfate) 2 mg Q3H PRN IVP severe pain 03/21/19 18:00 03/23/19 17:59 Moxifloxacin HCl (Vigamox) 1 drop Q12HR RIGHT EYE 03/21/19 21:00 03/23/19 20:59 03/23/19 09:06 Pantoprazole (Protonix) 40 mg DAILY@0630 IVP 03/22/19 06:30 04/19/19 06:29 03/23/19 06:01 Patient Own Medication (Patient's Own Med) 1 ea DAILYPRN PRN RECTAL constipation 03/21/19 18:00 04/10/19 17:59 Patient Own Medication (Patient's Own Med) 2 ea Q4HR OPHTHALM 03/21/19 21:00 04/16/19 12:59 03/23/19 09:05 Polyethylene Glycol (Miralax) 17 gm BEDTIME ORAL 03/21/19 21:00 04/16/19 20:59 03/21/19 21:24 Sodium Chloride (Sodium Chloride Dey-Nicolas 3%) 4 ml Q4HRT INH 03/21/19 19:00 04/16/19 06:59 Vitamin B Complex/ Vit C/Folic Acid (Nephrovite) 1 tab DAILY GT 03/22/19 09:00 04/11/19 08:59 03/23/19 09:05 Gutierrez Edwards MD Mar 23, 2019 09:20
--- NOTE | 2019-03-23 09:21 | NUR ---
NURSE NOTES: Pt's GT residuals noted to be 120cc. TF stopped at this time. Per Dr. Roldan, feeding will be resumed in J-tube with Glucerna 1.2
--- NOTE | 2019-03-23 09:29 | General Progress Note ---
Assessment/Plan Problem List: (1) Tracheostomy malfunction ICD Codes: J95.03 - Malfunction of tracheostomy stoma SNOMED: 81247726 (2) Acute renal failure ICD Codes: N17.9 - Acute kidney failure, unspecified SNOMED: 14360240 (3) Pericardial effusion ICD Codes: I31.3 - Pericardial effusion (noninflammatory) SNOMED: 638568072 (4) Sepsis ICD Codes: A41.9 - Sepsis, unspecified organism SNOMED: 69651509 (5) Pneumonia ICD Codes: J18.9 - Pneumonia, unspecified organism SNOMED: 164718404 (6) Tracheostomy malfunction ICD Codes: J95.03 - Malfunction of tracheostomy stoma SNOMED: 81142275 (7) Hypotension ICD Codes: I95.9 - Hypotension, unspecified SNOMED: 49722404 (8) Fecal impaction ICD Codes: K56.41 - Fecal impaction SNOMED: 79371192 Status: stable Assessment/Plan: monitor residuals g tube/j tube feeds abx bowel regime monitor renal fxn/labs skin care vent support resp care monitor secretions Subjective ROS Limited/Unobtainable: Yes Constitutional: Reports: malaise, weakness HEENT: Reports: no symptoms Cardiovascular: Reports: no symptoms Respiratory: Reports: shortness of breath, sputum Gastrointestinal/Abdominal: Reports: difficulty swallowing Genitourinary: Reports: no symptoms Neurologic/Psychiatric: Reports: pre-existing deficit Endocrine: Reports: no symptoms Hematologic/Lymphatic: Reports: no symptoms Allergies: Coded Allergies: OLANZAPINE (Verified Allergy, Severe, RESP FAILURE, 11/25/13) VANCOMYCIN (Verified Allergy, Severe, 11/25/13) PIPERACILLIN (Verified Allergy, Intermediate, HIVES, 11/25/13) TAZOBACTAM (Verified Allergy, Intermediate, HIVES, 11/25/13) All Systems: reviewed and negative except above Subjective no events. stable on the vent. j tube unclogged- intermittently clogs. on iv abx. d/w sister. yessenia pt dcd on iv abx Objective Last 24 Hour Vital Signs Date Time Temp Pulse Resp B/P (MAP) Pulse Ox O2 Delivery O2 Flow Rate FiO2 03/23/19 09:00 65 133/71 03/23/19 08:41 65 16 35 03/23/19 08:00 97.7 63 12 133/71 (91) 100 03/23/19 07:19 67 16 100 Mechanical Ventilator 35 64 14 35 03/23/19 05:30 74 14 35 03/23/19 05:06 72 03/23/19 04:00 96.6 70 15 110/59 (76) 100 03/23/19 04:00 Mechanical Ventilator 03/23/19 04:00 35 03/23/19 03:30 70 14 100 Mechanical Ventilator 35 70 14 35 03/23/19 01:00 77 16 35 03/23/19 00:00 96.8 80 19 127/70 (89) 100 03/23/19 00:00 Mechanical Ventilator 03/22/19 23:54 74 03/22/19 23:45 75 15 100 Mechanical Ventilator 35 75 15 35 03/22/19 21:19 79 14 35 03/22/19 20:46 78 102/65 03/22/19 20:00 Mechanical Ventilator 03/22/19 20:00 96.8 78 15 102/65 (77) 100 03/22/19 20:00 35 03/22/19 19:29 77 03/22/19 19:16 78 12 100 Mechanical Ventilator 35 78 12 35 03/22/19 16:00 35 03/22/19 16:00 97.7 74 12 148/73 (98) 100 03/22/19 16:00 Mechanical Ventilator 03/22/19 15:41 77 17 100 Mechanical Ventilator 35 79 14 35 03/22/19 15:24 78 03/22/19 14:44 76 14 35 03/22/19 13:59 78 13 100 Mechanical Ventilator 35 79 12 35 03/22/19 12:00 35 03/22/19 12:00 Mechanical Ventilator 03/22/19 12:00 97.4 75 12 123/68 (86) 100 03/22/19 11:46 75 03/22/19 11:07 81 14 100 Mechanical Ventilator 35 81 13 35 Intake and Output 03/22/19 03/23/19 19:00 07:00 Intake Total 480 ml 1120 ml Balance 480 ml 1120 ml Intake Free Water 80 ml IV Total 480 ml 480 ml Tube Feeding 210 ml Other 350 ml # Bowel Movements 2 Height (Feet): 5 Height (Inches): 4.00 Weight (Pounds): 154 Objective General Appearance: WD/WN, alert Neck: supple Cardiovascular: regular rhythm Respiratory/Chest: chest wall non-tender, rhonchi - bilaterally Abdomen: normal bowel sounds, non tender, soft, no organomegaly Edema: no edema noted Arm (L), no edema noted Arm (R), no edema noted Leg (L), no edema noted Leg (R), no edema noted Pedal (L), no edema noted Pedal (R), no edema noted Generalized Neurologic: disoriented, unresponsive, aphasia Pito Jones MD Mar 23, 2019 09:29
[2019-03-23] MEDS ORDERED: CEFEPIME-D1 GM/50 ML IVPB (09:31)
[2019-03-23] MEDS ORDERED: REGLAN IV (09:31)
--- NOTE | 2019-03-23 09:33 | NUR ---
NURSE NOTES: Left message for Dr. Roldan regarding GT residuals. Received call back from Dr. Evans with instructions to forward message to Dr. Jones. Left message for Dr. Jones. Awaiting call back.
--- NOTE | 2019-03-23 09:40 | NUR ---
NURSE NOTES: Late Entry (correct time 0900): verified with Zeeshan from pharmacy order for D5NS at 40cc/hr. Instructed to go ahead and scan a new bag and continue fluids.
[2019-03-23 12:00] VITALS: BP 126/74
--- NOTE | 2019-03-23 12:23 | NUR ---
NURSE NOTES: Caregiver (Alicia) instructed me to not administer insulin. Insulin dose held. BG 141- lAicia aware.
--- NOTE | 2019-03-23 13:03 | Nephrology Progress Note ---
Assessment/Plan Problem List: (1) End-stage renal disease (2) Sepsis (3) Hypotension (4) Pneumonia Plan HD 03/22 , GT now working, dc planned vent Subjective ROS Limited/Unobtainable: Yes Objective Objective Last 24 Hour Vital Signs Date Time Temp Pulse Resp B/P (MAP) Pulse Ox O2 Delivery O2 Flow Rate FiO2 03/23/19 12:00 98.1 68 16 126/74 (91) 100 03/23/19 12:00 Mechanical Ventilator 03/23/19 12:00 35 03/23/19 12:00 71 03/23/19 10:30 73 12 100 Mechanical Ventilator 35 73 12 35 03/23/19 09:00 65 133/71 03/23/19 08:41 65 16 35 03/23/19 08:00 35 03/23/19 08:00 62 03/23/19 08:00 Mechanical Ventilator 03/23/19 08:00 97.7 63 12 133/71 (91) 100 03/23/19 07:19 67 16 100 Mechanical Ventilator 35 64 14 35 03/23/19 05:30 74 14 35 03/23/19 05:06 72 03/23/19 04:00 96.6 70 15 110/59 (76) 100 03/23/19 04:00 Mechanical Ventilator 03/23/19 04:00 35 03/23/19 03:30 70 14 100 Mechanical Ventilator 35 70 14 35 03/23/19 01:00 77 16 35 03/23/19 00:00 96.8 80 19 127/70 (89) 100 03/23/19 00:00 Mechanical Ventilator 03/22/19 23:54 74 03/22/19 23:45 75 15 100 Mechanical Ventilator 35 75 15 35 03/22/19 21:19 79 14 35 03/22/19 20:46 78 102/65 03/22/19 20:00 Mechanical Ventilator 03/22/19 20:00 96.8 78 15 102/65 (77) 100 03/22/19 20:00 35 03/22/19 19:29 77 03/22/19 19:16 78 12 100 Mechanical Ventilator 35 78 12 35 03/22/19 16:00 35 03/22/19 16:00 97.7 74 12 148/73 (98) 100 03/22/19 16:00 Mechanical Ventilator 03/22/19 15:41 77 17 100 Mechanical Ventilator 35 79 14 35 03/22/19 15:24 78 03/22/19 14:44 76 14 35 03/22/19 13:59 78 13 100 Mechanical Ventilator 35 79 12 35 Intake and Output 03/22/19 03/23/19 19:00 07:00 Intake Total 480 ml 1120 ml Balance 480 ml 1120 ml Intake Free Water 80 ml IV Total 480 ml 480 ml Tube Feeding 210 ml Other 350 ml # Bowel Movements 2 Height (Feet): 5 Height (Inches): 4.00 Weight (Pounds): 154 General Appearance: alert, other - on vent EENT: normal ENT inspection Cardiovascular: normal rate, regular rhythm Respiratory/Chest: rhonchi - bilaterally Abdomen: non tender, soft Extremities: other - no edema Kamran Ayala MD Mar 23, 2019 13:03
[2019-03-23] MEDS: Cefepime HCl 1 GM in D5W 55 ML IVPB SCH (13:14)
--- NOTE | 2019-03-23 14:33 | Pulmonology Progress Note ---
Assessment/Plan Assessment/Plan Pulmonary Progress Note Assessment/Plan chronic respiratory failure chronic encephalopathy trach CRF on HD GT constipation increase in residual hypertension diabetes s/p GT-->JT conversion intolerance of meds gastroparesis + pseudomonas hypotension ? sepsis or fluid related PLAN ID followup defer antibiotics to ID currently hemodynamics improved vent as is/ on full support feeds as able/ gi to assist sister does not want JT at this time reglan IV routine complete cefepime monitor feeds and residuals gt to suction HD and monitor lytes and monitor fluid status skin care and off load monitor hemodynamics chronic care-without change monitor sugars not ready for dc yet, nausea intermittently support as able full code medications/laboratory data/nursing notes note reviewed and edited care discussed with RN and RT Subjective ROS Limited/Unobtainable: Yes Allergies: Coded Allergies: OLANZAPINE (Verified Allergy, Severe, RESP FAILURE, 11/25/13) VANCOMYCIN (Verified Allergy, Severe, 11/25/13) PIPERACILLIN (Verified Allergy, Intermediate, HIVES, 11/25/13) TAZOBACTAM (Verified Allergy, Intermediate, HIVES, 11/25/13) Subjective care noted and reviewed Objective Vital Signs Noted Objective WDWN NAD trach poor LOC reduced breath sounds, CTAB [id number] without MRG NABS nontender no HSM no CCE nonfocal poorly responsive at present skin exam noted gt feeds Laboratory Tests Noted Subjective ROS Limited/Unobtainable: No Allergies: Coded Allergies: OLANZAPINE (Verified Allergy, Severe, RESP FAILURE, 11/25/13) VANCOMYCIN (Verified Allergy, Severe, 11/25/13) PIPERACILLIN (Verified Allergy, Intermediate, HIVES, 11/25/13) TAZOBACTAM (Verified Allergy, Intermediate, HIVES, 11/25/13) Objective Last 24 Hour Vital Signs Date Time Temp Pulse Resp B/P (MAP) Pulse Ox O2 Delivery O2 Flow Rate FiO2 03/23/19 14:25 86 15 100 Mechanical Ventilator 35 73 12 35 03/23/19 12:00 98.1 68 16 126/74 (91) 100 03/23/19 12:00 Mechanical Ventilator 03/23/19 12:00 35 03/23/19 12:00 71 03/23/19 10:30 73 12 100 Mechanical Ventilator 35 73 12 35 03/23/19 09:00 65 133/71 03/23/19 08:41 65 16 35 03/23/19 08:00 35 9/29/19 08:00 62 03/23/19 08:00 Mechanical Ventilator 03/23/19 08:00 97.7 63 12 133/71 (91) 100 03/23/19 07:19 67 16 100 Mechanical Ventilator 35 64 14 35 03/23/19 05:30 74 14 35 03/23/19 05:06 72 03/23/19 04:00 96.6 70 15 110/59 (76) 100 03/23/19 04:00 Mechanical Ventilator 03/23/19 04:00 35 03/23/19 03:30 70 14 100 Mechanical Ventilator 35 70 14 35 03/23/19 01:00 77 16 35 03/23/19 00:00 96.8 80 19 127/70 (89) 100 03/23/19 00:00 Mechanical Ventilator 03/22/19 23:54 74 03/22/19 23:45 75 15 100 Mechanical Ventilator 35 75 15 35 03/22/19 21:19 79 14 35 03/22/19 20:46 78 102/65 03/22/19 20:00 Mechanical Ventilator 03/22/19 20:00 96.8 78 15 102/65 (77) 100 03/22/19 20:00 35 03/22/19 19:29 77 03/22/19 19:16 78 12 100 Mechanical Ventilator 35 78 12 35 03/22/19 16:00 35 03/22/19 16:00 97.7 74 12 148/73 (98) 100 03/22/19 16:00 Mechanical Ventilator 03/22/19 15:41 77 17 100 Mechanical Ventilator 35 79 14 35 03/22/19 15:24 78 03/22/19 14:44 76 14 35 Intake and Output 03/22/19 03/23/19 19:00 07:00 Intake Total 480 ml 1120 ml Balance 480 ml 1120 ml Intake Free Water 80 ml IV Total 480 ml 480 ml Tube Feeding 210 ml Other 350 ml # Bowel Movements 2 Microbiology Date/Time Source Procedure Growth Status 03/20/19 20:30 Blood Blood Culture - Preliminary NO GROWTH AFTER 48 HOURS Resulted 03/20/19 20:20 Blood Blood Culture - Preliminary NO GROWTH AFTER 48 HOURS Resulted Current Medications Medications (Trade) Dose Ordered Sig/Alex Route PRN Reason Start Time Stop Time Status Last Admin Dose Admin Acetaminophen (Tylenol) 975 mg Q8H PRN RECTAL For Pain 03/21/19 18:00 04/20/19 17:59 Acetaminophen (Tylenol) 1,000 mg Q6H PRN GT Mild Pain/Temp > 100.5 03/21/19 22:00 04/10/19 21:59 Albuterol Sulfate (Proventil) 2.5 mg Q4HRT HHN 03/21/19 23:00 03/26/19 22:59 03/23/19 14:24 Artificial Tears (Lacri-Lube) 1 applic Q4HR RIGHT EYE 03/21/19 21:00 04/14/19 12:59 03/23/19 13:16 Carvedilol (Coreg) 12.5 mg EVERY 12 HOURS GT 03/21/19 21:00 04/10/19 20:59 Cefepime HCl 1 gm/ Dextrose 55 ml @ 110 mls/hr Q24H IVPB 03/22/19 13:00 03/25/19 12:59 03/23/19 13:14 Chlorhexidine Gluconate (Rubina-Hex 2%) 1 applic DAILY@2000 TOPIC 03/21/19 20:00 04/11/19 19:59 03/22/19 20:46 Dextrose (Dextrose 50%) 25 ml Q30M PRN IV Hypoglycemia 03/21/19 17:45 04/10/19 17:14 Dextrose (Dextrose 50%) 50 ml Q30M PRN IV Hypoglycemia 03/21/19 17:45 04/10/19 17:14 Dextrose/Sodium Chloride 1,000 ml @ 40 mls/hr Q24H IV 03/21/19 17:30 04/19/19 16:09 03/23/19 09:18 Epoetin Amadou (Epoetin Amadou(ESRD on dialysis)) 10,000 unit ONCE A WEEK SUBQ 03/26/19 21:00 04/18/19 20:59 Insulin Aspart (NovoLOG) EVERY 6 HOURS SUBQ 03/21/19 18:00 04/10/19 17:59 Insulin Detemir (Levemir) 15 units BEDTIME SUBQ 03/21/19 21:00 04/14/19 20:59 03/21/19 21:53 Ipratropium [place] (Atrovent) 500 mcg Q6HRT HHN 03/22/19 01:00 03/27/19 00:59 03/23/19 14:24 Levothyroxine Sodium (Synthroid) 200 mcg QHS GT 03/21/19 21:00 04/10/19 20:59 03/21/19 21:25 Metoclopramide HCl (Reglan) 10 mg EVERY 8 HOURS IVP 03/21/19 22:00 04/18/19 21:59 03/23/19 13:14 Metoclopramide HCl (Reglan) 10 mg Q8H PRN IVP Nausea & Vomiting 03/21/19 18:00 04/19/19 17:59 Morphine Sulfate (Morphine Sulfate) 2 mg Q3H PRN IVP severe pain 03/21/19 18:00 03/23/19 17:59 Moxifloxacin HCl (Vigamox) 1 drop Q12HR RIGHT EYE 03/21/19 21:00 03/23/19 20:59 03/23/19 09:06 Pantoprazole (Protonix) 40 mg DAILY@0630 IVP 03/22/19 06:30 04/19/19 06:29 03/23/19 06:01 Patient Own Medication (Patient's Own Med) 1 ea DAILYPRN PRN RECTAL constipation 03/21/19 18:00 04/10/19 17:59 Patient Own Medication (Patient's Own Med) 2 ea Q4HR OPHTHALM 03/21/19 21:00 04/16/19 12:59 03/23/19 13:19 Polyethylene Glycol (Miralax) 17 gm BEDTIME ORAL 03/21/19 21:00 04/16/19 20:59 03/21/19 21:24 Sodium Chloride (Sodium Chloride Dey-Nicolas 3%) 4 ml Q4HRT INH 03/21/19 19:00 04/16/19 06:59 Vitamin B Complex/ Vit C/Folic Acid (Nephrovite) 1 tab DAILY GT 03/22/19 09:00 04/11/19 08:59 03/23/19 09:05 Ramo Kelsey MD Mar 23, 2019 14:33
--- NOTE | 2019-03-23 15:41 | Surgery Progress Note ---
Surgery Progress Note Subjective Additional Comments No acute events. Air mattress functional. Being turned. Bony promises well- padded. Objective Last 24 Hour Vital Signs Date Time Temp Pulse Resp B/P (MAP) Pulse Ox O2 Delivery O2 Flow Rate FiO2 03/23/19 15:11 87 16 100 Mechanical Ventilator 35 73 12 35 03/23/19 14:25 86 15 100 Mechanical Ventilator 35 73 12 35 03/23/19 13:15 87 14 100 Mechanical Ventilator 35 73 12 35 03/23/19 12:00 98.1 68 16 126/74 (91) 100 03/23/19 12:00 Mechanical Ventilator 03/23/19 12:00 35 03/23/19 12:00 71 03/23/19 10:30 73 12 100 Mechanical Ventilator 35 73 12 35 03/23/19 09:00 65 133/71 03/23/19 08:41 65 16 35 03/23/19 08:00 35 03/23/19 08:00 62 03/23/19 08:00 Mechanical Ventilator 03/23/19 08:00 97.7 63 12 133/71 (91) 100 03/23/19 07:19 67 16 100 Mechanical Ventilator 35 64 14 35 03/23/19 05:30 74 14 35 03/23/19 05:06 72 03/23/19 04:00 96.6 70 15 110/59 (76) 100 03/23/19 04:00 Mechanical Ventilator 03/23/19 04:00 35 03/23/19 03:30 70 14 100 Mechanical Ventilator 35 70 14 35 03/23/19 01:00 77 16 35 03/23/19 00:00 96.8 80 19 127/70 (89) 100 03/23/19 00:00 Mechanical Ventilator 03/22/19 23:54 74 03/22/19 23:45 75 15 100 Mechanical Ventilator 35 75 15 35 03/22/19 21:19 79 14 35 03/22/19 20:46 78 102/65 03/22/19 20:00 Mechanical Ventilator 03/22/19 20:00 96.8 78 15 102/65 (77) 100 03/22/19 20:00 35 03/22/19 19:29 77 03/22/19 19:16 78 12 100 Mechanical Ventilator 35 78 12 35 03/22/19 16:00 35 03/22/19 16:00 97.7 74 12 148/73 (98) 100 03/22/19 16:00 Mechanical Ventilator 03/22/19 15:41 77 17 100 Mechanical Ventilator 35 79 14 35 I&O Intake and Output 03/22/19 03/23/19 19:00 07:00 Intake Total 480 ml 1120 ml Balance 480 ml 1120 ml Intake Free Water 80 ml IV Total 480 ml 480 ml Tube Feeding 210 ml Other 350 ml # Bowel Movements 2 Dressing: other Wound: other Drains: other Cardiovascular: RSR Respiratory: decreased breath sounds Abdomen: soft, distended, decreased bowel sounds Extremities: no edema, no tenderness, no cyanosis Plan Problems: (1) Fecal impaction Assessment & Plan: seen by GI and G replaced with GJ can tolerate some j feeds still with significant bilious g tube drainage imaging noted requires bowel regimen intermittent constipation appreciate GI input consideration for surgical J and diverting loop colostomy in future if stable elective discussed with sister (2) Sepsis Assessment & Plan: Cont IV ABx trend labs Rx as written vent feeds Complete assessment of pt's skin completed.. care givers at bedside. Pt has trach and noted to have washcloth intertwined with trach collar. Pt's street photographer at bedside and declined for washcloth to be removed during my exam as well. Pt's caregiver was educated coarseness of washcloth is risk to pt's skin and may cause skin breakdown. senior program analyst responded washcloth has been in use for over 10yrs and pt has never had skin breakdown. Skin assessed under and around trach and neck and no erythema or evidence of skin breakdown. Both elbows,both hips ,skin folds of breasts, abd and bilat groin and perineum without erythema or evidence of any skin breakdown. Back buttocks and both heels assessed and is pink without any evidence of skin breakdown. senior program analyst verbalized that previous day pt had red area on L buttocks /ischial region when on left side and similar on right when on right side. sister assured me she has "pictures to prove it". Erythema has now resolved and this was indicated to street photographer whom was also invited to assess pt's skin to confirm no redness noted. sister agreed that it had resolved since she last saw her and states it happens during the two hours she is on each side with planned turning. Moisture Barrier paste applied to perineum and buttocks. Optifoam drsgs applied as prevention to both hips ,Sacral area and both heels. Pt was positioned on her side with pillows and both heels floated off mattress. Pt is on an APM/ARCELIA mattress overlay due to pt identified as high risk for skin breakdown ;Francesco score of 9.Pt is being repositioned as per protocols and per pt's tolerance. patient currently without skin breakdown has padding placed with dressing on right hand IV Site. moisture noted and recommend removal / change but even during my examination of area the caregiver physically did not allow my to do so or even appropriately evaluate and stated that it is there to ensure IV line does not dislodge as she is a very hard IV stick. I had long discussion with family and caregiver about current care and plans. all questions answered. on air mattress Tx.Plan: Apply Moisture Barrier Paste to skin folds and buttocks with each perineal care. Cover sacral area with Optifoam drsg . Change every 3 days and prn. Apply Cavilon Skin Barrier to both hips. Cover each hip with Optifoam drsg. Change every 7 days and prn. Apply Cavilon Skin Barrier to both heels. Cover each heel with Optifoam drsg. Change every 7 days and prn. Reposition at least every 2hours or as tolerated. Off-load heels with pillow. Artemio Jones Mar 23, 2019 15:41
[2019-03-23] MEDS ORDERED: Tubing IV Secondary IV ONE (15:42)
[2019-03-23 16:00] VITALS: BP 124/72
--- NOTE | 2019-03-23 16:03 | NUR ---
NURSE NOTES: Arranged transportation via ambulance spoke to [place]. Picked up time 1730.
--- NOTE | 2019-03-23 19:00 | NUR ---
NURSE NOTES: Received hand off report from Gaye Apple RN. Pt is obtunded and mechanically ventilated; settings checked. Pt with patent JG tube running Glucerna 1.2 @ 30ml/hr. No residuals when checked. Pt skin is intact. No signs or symptoms of pain or distress noted at this time. Family at bedside. Pt has patent left hand PIV 22g running D5NS @ 40ml/hr. Will continue to monitor closely.
--- NOTE | 2019-03-23 19:02 | NUR ---
NURSE NOTES: Late entry (correct time 1800): Insulin dose for 1800 not administered per Khadijah Rosenbaum (refused medication). Pt's BG 134.
--- NOTE | 2019-03-23 19:46 | NUR ---
NURSE NOTES: Discharge has been delayed at this time. [facility] agreed to transport the pt back home with RT at an additional cost that will not be covered by the patient's insurance. Pt's sister (Khadijah Rosenbaum) is refusing to pay the cost of RT service that will not be covered by the pt's insurance. Khadijah is now trying to arrange alternative transportation in collaboration with our nursing aircraft engine mechanic supervisor. At this time, no alternative arrangements have been made. Pt report given to Raiza Muñiz RN. Pt is in stable condition. Plan of care will be continued until transportation services are arranged.
--- NOTE | 2019-03-23 19:57 | NUR ---
RESPIRATORY NOTE: Received pt. on 840 vent. Vent settings are: A/C rate of 12, Vt 450, FI02 35%, PEEP +5. No respiratory distress noted, pt. sP02 @ 100%. AMBU bag @ BS. Vent plugged on red outlet. Will continue to monitor pt.
[2019-03-23 20:00] VITALS: BP 130/68
--- NOTE | 2019-03-23 20:00 | NUR ---
NURSE NOTES: Pt is resting on the bed and no sign of acute distress noted. Still trying to arrange transportation for discharge and awaiting call back.
[2019-03-23] MEDS: Dyna-Hex 2% Top Sol 2oz TOPIC SCH (20:13)
--- NOTE | 2019-03-23 21:00 | NUR ---
NURSE NOTES: Trying to contact several ambulance company but not available [place]. Get call back from [facility] and available tomorrow @ 11:30Am. Informed Family. Will continue to monitor any change of condition.
[2019-03-23] MEDS: Miralax 17gm pkt ORAL SCH ×2 (21:28→21:36)
[2019-03-23] MEDS: Levemir Flexpen SUBQ SCH (21:35)
[2019-03-24] VITALS: BP 112/69
[2019-03-24] MEDS: Ipratropium 0.02% Inh Soln 2.5ml UD HHN SCH ×2 (01:39→07:51)
[2019-03-24] MEDS: SYSTANE ULTRA OPHTHALM SCH ×3 (01:57→08:24)
[2019-03-24] MEDS: Lacri-Lube Opth Oint 3.5gm RIGHT EYE SCH ×3 (01:57→08:23)
[2019-03-24] MEDS: Sodium Chloride 3% 4ml Nebul Soln INH SCH ×3 (03:00→11:00)
[2019-03-24 03:28] VITALS: BP 118/76
[2019-03-24] MEDS: Albuterol ud Inhalation HHN SCH ×3 (03:33→11:11)
[2019-03-24] MEDS: NovoLOG Insulin Flexpen SUBQ SCH ×3 (06:00→12:00)
[2019-03-24] MEDS: Pantoprazole Inj IVP SCH (06:25)
[2019-03-24] MEDS: Metoclopramide 10mg/2ml Inj IVP SCH (06:25)
--- NOTE | 2019-03-24 07:36 | NUR ---
HAND-OFF: Report given to Karla Pisano RN Pt is stable, no signs or symptoms of distress at this time.
--- NOTE | 2019-03-24 07:37 | NUR ---
NURSE NOTES: Pt received in stable condition w/no cardiopulmonary distress noted. Pt is asleep in bed, trach to vent AC12 TV450 FiO2 35% Peep 5. G-J tube noted. GT lumen is running Glucerna 1.5 at 25cc/hr with residual of 0cc. Jtube flushed w/ 30cc H20 with mild resistance noted. Portacath noted in Left upper chest. LH 22g with D5NS running at 40mL/hr. No skin alterations noted at this time. Bed is lowest position, alarm on,call light within reach, side rails up x2,sister at bedside, will continue to monitor pt.
[2019-03-24 08:00] VITALS: BP 127/80
[2019-03-24] MEDS: Nephrovite tab (Rena-Vite) GT SCH (08:23)
[2019-03-24] MEDS: Carvedilol 12.5mg tab GT SCH (08:35)
--- NOTE | 2019-03-24 08:35 | NUR ---
NURSE NOTES: Family declined administration of Coreg at this time. Patient is for discharge.
--- NOTE | 2019-03-24 09:30 | Discharge Summary ---
DATE OF ADMISSION: 03/11/2019 DATE OF DISCHARGE: 03/24/2019 ADMISSION DIAGNOSES: 1. Fecal impaction. 2. History of anoxic encephalopathy. 3. Chronic respiratory failure. 4. End-stage renal disease. 5. Hypertension. 6. Obesity. 7. History of GERD. 8. Diabetes. DISCHARGE DIAGNOSES: 1. Fecal impaction. 2. History of anoxic encephalopathy. 3. Chronic respiratory failure. 4. End-stage renal disease. 5. Hypertension. 6. Obesity. 7. History of GERD. 8. Diabetes. 9. Sepsis. 10. Pneumonia. 11. Status post G-tube placement. HOSPITAL COURSE: The patient is a 64-year-old female, who presented with complaints of fecal impaction. She was initially admitted. She received bowel regimen. GI consultation was obtained. The patient had a CAT scan that was unremarkable. She did have a good response with bowel regimen but again had issues with high residuals. She underwent placement of J-tube which initially did well. There were problems with low feeding through the J-port, then she was switched to G-tube feeds which she did tolerate. At that time, also the J-tube was working. Hospital course was complicated by episode of hypotension felt to be secondary to dehydration and volume depletion. This improved with IV fluids. She was diagnosed with bacterial pneumonia and started on IV antibiotic therapy. On discharge, the patient was doing well. During her hospitalization, she was continued on hemodialysis. She will be discharged home to complete a week of IV cefepime. She also will be continued on J-tube feeds. The patient will be followed up by her PMD. MEDICATIONS: Please see discharge medication list for discharge medications. DIET: G-tube feedings. ACTIVITIES: Ad-yanni. Pito Jones M.D. DR: Susannah JOB#: [id number] CC:
--- NOTE | 2019-03-24 11:00 | NUR ---
NURSE NOTES: Bed bath provided
[2019-03-24] MEDS: Cefepime HCl 1 GM in D5W 55 ML IVPB SCH (11:41)
--- NOTE | 2019-03-24 11:41 | Infectious Diseases Prog Note ---
Assessment/Plan Assessment/Plan antibiotics : cefepime 03.18.19 - A 1. pseudomonas pneumonia 2. leucocytosis improving 3. respiratory failure 4. diabetes mellitus 5. hypertension 6. anoxic encephalopathy P 1. continue cefepime 3 more days 2. will follow up cultures Subjective ROS Limited/Unobtainable: Yes Allergies: Coded Allergies: OLANZAPINE (Verified Allergy, Severe, RESP FAILURE, 11/25/13) VANCOMYCIN (Verified Allergy, Severe, 11/25/13) PIPERACILLIN (Verified Allergy, Intermediate, HIVES, 11/25/13) TAZOBACTAM (Verified Allergy, Intermediate, HIVES, 11/25/13) Objective Vital Signs Last 24 Hour Vital Signs Date Time Temp Pulse Resp B/P (MAP) Pulse Ox O2 Delivery O2 Flow Rate FiO2 03/24/19 11:09 80 16 100 Mechanical Ventilator 35 80 16 35 03/24/19 09:30 85 13 35 03/24/19 08:15 Mechanical Ventilator 03/24/19 08:00 35 03/24/19 08:00 97.9 89 18 127/80 (96) 100 03/24/19 07:47 87 15 99 Mechanical Ventilator 35 84 15 35 03/24/19 07:31 86 03/24/19 05:10 92 16 35 03/24/19 04:00 Mechanical Ventilator 03/24/19 04:00 35 03/24/19 03:33 94 14 99 Mechanical Ventilator 35 93 14 35 03/24/19 03:28 95 03/24/19 03:28 97.2 93 12 118/76 (90) 100 03/24/19 01:39 81 17 99 Mechanical Ventilator 35 83 13 35 03/24/19 00:00 97.7 83 12 112/69 (83) 100 03/24/19 00:00 Mechanical Ventilator 03/24/19 00:00 83 03/24/19 00:00 35 03/23/19 23:39 82 16 100 Mechanical Ventilator 35 83 16 35 03/23/19 21:27 81 130/68 03/23/19 21:06 81 16 35 03/23/19 20:00 35 03/23/19 20:00 96.4 81 18 130/68 (88) 100 03/23/19 20:00 Mechanical Ventilator 03/23/19 19:55 78 18 100 Mechanical Ventilator 35 82 12 35 9/29/19 19:23 78 03/23/19 17:15 82 17 35 03/23/19 16:00 97.8 83 17 124/72 (89) 100 03/23/19 16:00 Mechanical Ventilator 03/23/19 16:00 35 03/23/19 16:00 71 03/23/19 15:11 87 16 100 Mechanical Ventilator 35 73 12 35 03/23/19 14:25 86 15 100 Mechanical Ventilator 35 73 12 35 03/23/19 13:15 87 14 100 Mechanical Ventilator 35 73 12 35 03/23/19 12:00 98.1 68 16 126/74 (91) 100 03/23/19 12:00 Mechanical Ventilator 03/23/19 12:00 35 03/23/19 12:00 71 Height (Feet): 5 Height (Inches): 4.00 Weight (Pounds): 154 HEENT: status post trach Respiratory/Chest: lungs clear Cardiovascular: normal rate, regular rhythm, no gallop/murmur Abdomen: soft, non tender, other - GT Extremities: no edema Current Medications Medications (Trade) Dose Ordered Sig/Alex Route PRN Reason Start Time Stop Time Status Last Admin Dose Admin Acetaminophen (Tylenol) 975 mg Q8H PRN RECTAL For Pain 03/21/19 18:00 04/20/19 17:59 Acetaminophen (Tylenol) 1,000 mg Q6H PRN GT Mild Pain/Temp > 100.5 03/21/19 22:00 04/10/19 21:59 Albuterol Sulfate (Proventil) 2.5 mg Q4HRT HHN 03/21/19 23:00 03/26/19 22:59 03/24/19 11:11 Artificial Tears (Lacri-Lube) 1 applic Q4HR RIGHT EYE 03/21/19 21:00 04/14/19 12:59 03/24/19 08:23 Carvedilol (Coreg) 12.5 mg EVERY 12 HOURS GT 03/21/19 21:00 04/10/19 20:59 03/23/19 21:27 Cefepime HCl 1 gm/ Dextrose 55 ml @ 110 mls/hr Q24H IVPB 03/22/19 13:00 03/25/19 12:59 03/23/19 13:14 Chlorhexidine Gluconate (Rubina-Hex 2%) 1 applic DAILY@2000 TOPIC 03/21/19 20:00 04/11/19 19:59 03/23/19 20:13 Dextrose (Dextrose 50%) 25 ml Q30M PRN IV Hypoglycemia 03/21/19 17:45 04/10/19 17:14 Dextrose (Dextrose 50%) 50 ml Q30M PRN IV Hypoglycemia 03/21/19 17:45 04/10/19 17:14 Dextrose/Sodium Chloride 1,000 ml @ 40 mls/hr Q24H IV 03/21/19 17:30 04/19/19 16:09 03/23/19 18:03 Epoetin Amadou (Epoetin Amadou(ESRD on dialysis)) 10,000 unit ONCE A WEEK SUBQ 03/26/19 21:00 04/18/19 20:59 Insulin Aspart (NovoLOG) EVERY 6 HOURS SUBQ 03/21/19 18:00 04/10/19 17:59 Insulin Detemir (Levemir) 15 units BEDTIME SUBQ 03/21/19 21:00 04/14/19 20:59 03/23/19 21:35 Ipratropium [place] (Atrovent) 500 mcg Q6HRT HHN 03/22/19 01:00 03/27/19 00:59 03/24/19 07:51 Levothyroxine Sodium (Synthroid) 200 mcg QHS GT 03/21/19 21:00 04/10/19 20:59 03/23/19 21:50 Metoclopramide HCl (Reglan) 10 mg EVERY 8 HOURS IVP 03/21/19 22:00 04/18/19 21:59 03/24/19 06:25 Metoclopramide HCl (Reglan) 10 mg Q8H PRN IVP Nausea & Vomiting 03/21/19 18:00 04/19/19 17:59 Pantoprazole (Protonix) 40 mg DAILY@0630 IVP 03/22/19 06:30 04/19/19 06:29 03/24/19 06:25 Patient Own Medication (Patient's Own Med) 1 ea DAILYPRN PRN RECTAL constipation 03/21/19 18:00 04/10/19 17:59 Patient Own Medication (Patient's Own Med) 2 ea Q4HR OPHTHALM 03/21/19 21:00 04/16/19 12:59 03/24/19 08:24 Polyethylene Glycol (Miralax) 17 gm BEDTIME GT 03/24/19 21:00 04/16/19 20:59 Sodium Chloride (Sodium Chloride Dey-Nicolas 3%) 4 ml Q4HRT INH 03/21/19 19:00 04/16/19 06:59 Vitamin B Complex/ Vit C/Folic Acid (Nephrovite) 1 tab DAILY GT 03/22/19 09:00 04/11/19 08:59 03/24/19 08:23 Fabio Brown MD Mar 24, 2019 11:41
--- NOTE | 2019-03-24 11:49 | NUR ---
*-* DISCHARGE PLANNING *-* PATIENT HAS BEENR EFERRED TO: [facility] P; [phone] F: [phone]
[2019-03-24 12:05] VITALS: BP 127/70
[2019-03-24] MEDS ORDERED: Sterile Water Irrig 1000ml IRRIG ONE (12:29)
[2019-03-24] MEDS ORDERED: NS 500ML ONE (12:29)
[2019-03-24] MEDS ORDERED: D5NS 1000ml IV ONE (12:29)
--- NOTE | 2019-03-24 12:30 | NUR ---
NURSE NOTES: Discharged patient to home accompanied by [facility] staff report given to Tamaran/RT, family at bedside. Patient remains vent dependent GJ tube remains in place and LH 22g IV catheter remains patent.
--- NOTE | 2019-03-24 12:46 | Nephrology Progress Note ---
Assessment/Plan Assessment 1) VDRF 2) ESRD 3) DM 4) Gastroparesis 5) Probable PNA, 6) Doubt CHF &) Some eosinophilia ? cause, Parasites, eosinophilic GE or pneumonitis Plan: HD tomorrow at home Continue IV ATB OK to discharge Subjective Subjective She is tolerating JT feeding, No bronchoscopy was done, she is still on IV ATB's Objective Objective Last 24 Hour Vital Signs Date Time Temp Pulse Resp B/P (MAP) Pulse Ox O2 Delivery O2 Flow Rate FiO2 03/24/19 12:05 97.7 81 12 127/70 (89) 100 03/24/19 12:03 35 03/24/19 12:03 Mechanical Ventilator 03/24/19 11:09 80 16 100 Mechanical Ventilator 35 80 16 35 03/24/19 09:30 85 13 35 03/24/19 08:15 Mechanical Ventilator 03/24/19 08:00 35 03/24/19 08:00 97.9 89 18 127/80 (96) 100 03/24/19 07:47 87 15 99 Mechanical Ventilator 35 84 15 35 03/24/19 07:31 86 03/24/19 05:10 92 16 35 03/24/19 04:00 Mechanical Ventilator 03/24/19 04:00 35 03/24/19 03:33 94 14 99 Mechanical Ventilator 35 93 14 35 03/24/19 03:28 95 03/24/19 03:28 97.2 93 12 118/76 (90) 100 03/24/19 01:39 81 17 99 Mechanical Ventilator 35 83 13 35 03/24/19 00:00 97.7 83 12 112/69 (83) 100 03/24/19 00:00 Mechanical Ventilator 03/24/19 00:00 83 03/24/19 00:00 35 03/23/19 23:39 82 16 100 Mechanical Ventilator 35 83 16 35 03/23/19 21:27 81 130/68 03/23/19 21:06 81 16 35 03/23/19 20:00 35 03/23/19 20:00 96.4 81 18 130/68 (88) 100 03/23/19 20:00 Mechanical Ventilator 03/23/19 19:55 78 18 100 Mechanical Ventilator 35 82 12 35 03/23/19 19:23 78 03/23/19 17:15 82 17 35 03/23/19 16:00 97.8 83 17 124/72 (89) 100 03/23/19 16:00 Mechanical Ventilator 03/23/19 16:00 35 03/23/19 16:00 71 03/23/19 15:11 87 16 100 Mechanical Ventilator 35 73 12 35 03/23/19 14:25 86 15 100 Mechanical Ventilator 35 73 12 35 03/23/19 13:15 87 14 100 Mechanical Ventilator 35 73 12 35 Intake and Output 03/23/19 03/24/19 19:00 07:00 Intake Total 967 ml 898 ml Balance 967 ml 898 ml Intake Free Water 65 ml IV Total 402 ml 518 ml Tube Feeding 290 ml 330 ml Other 210 ml 50 ml # Voids 3 # Bowel Movements 2 Height (Feet): 5 Height (Inches): 4.00 Weight (Pounds): 154 General Appearance: WD/WN, other EENT: PERRL/EOMI Neck: non-tender - Tracheostomy, other Cardiovascular: JVD - nl Respiratory/Chest: crackles/rales, rhonchi - bilaterally Abdomen: normal bowel sounds, non tender Neurologic: other - Quadriplegia Ede Thakur MD Mar 24, 2019 12:46
--- NOTE | 2019-03-24 13:44 | Pulmonology Progress Note ---
Assessment/Plan Assessment/Plan Pulmonary Progress Note Assessment/Plan chronic respiratory failure chronic encephalopathy trach CRF on HD GT constipation increase in residual hypertension diabetes s/p GT-->JT conversion intolerance of meds gastroparesis + pseudomonas hypotension ? sepsis or fluid related PLAN ID followup defer antibiotics to ID currently hemodynamics improved vent as is/ on full support feeds as able/ gi to assist sister does not want JT at this time reglan IV routine complete cefepime monitor feeds and residuals gt to suction HD and monitor lytes and monitor fluid status skin care and off load monitor hemodynamics chronic care-without change monitor sugars not ready for dc yet, nausea intermittently support as able full code medications/laboratory data/nursing notes note reviewed and edited care discussed with RN and RT Subjective ROS Limited/Unobtainable: Yes Allergies: Coded Allergies: OLANZAPINE (Verified Allergy, Severe, RESP FAILURE, 11/25/13) VANCOMYCIN (Verified Allergy, Severe, 11/25/13) PIPERACILLIN (Verified Allergy, Intermediate, HIVES, 11/25/13) TAZOBACTAM (Verified Allergy, Intermediate, HIVES, 11/25/13) Subjective care noted and reviewed Objective Vital Signs Noted Objective WDWN NAD trach poor LOC reduced breath sounds, CTAB [id number] without MRG NABS nontender no HSM no CCE nonfocal poorly responsive at present skin exam noted gt feeds Laboratory Tests Noted Seen earlier Subjective ROS Limited/Unobtainable: No Allergies: Coded Allergies: OLANZAPINE (Verified Allergy, Severe, RESP FAILURE, 11/25/13) VANCOMYCIN (Verified Allergy, Severe, 11/25/13) PIPERACILLIN (Verified Allergy, Intermediate, HIVES, 11/25/13) TAZOBACTAM (Verified Allergy, Intermediate, HIVES, 11/25/13) Objective Last 24 Hour Vital Signs Date Time Temp Pulse Resp B/P (MAP) Pulse Ox O2 Delivery O2 Flow Rate FiO2 03/24/19 12:05 97.7 81 12 127/70 (89) 100 03/24/19 12:03 35 03/24/19 12:03 Mechanical Ventilator 03/24/19 11:09 80 16 100 Mechanical Ventilator 35 80 16 35 03/24/19 09:30 85 13 35 03/24/19 08:15 Mechanical Ventilator 03/24/19 08:00 35 03/24/19 08:00 97.9 89 18 127/80 (96) 100 03/24/19 07:47 87 15 99 Mechanical Ventilator 35 84 15 35 03/24/19 07:31 86 03/24/19 05:10 92 16 35 03/24/19 04:00 Mechanical Ventilator 03/24/19 04:00 35 03/24/19 03:33 94 14 99 Mechanical Ventilator 35 93 14 35 03/24/19 03:28 95 03/24/19 03:28 97.2 93 12 118/76 (90) 100 03/24/19 01:39 81 17 99 Mechanical Ventilator 35 83 13 35 03/24/19 00:00 97.7 83 12 112/69 (83) 100 03/24/19 00:00 Mechanical Ventilator 03/24/19 00:00 83 03/24/19 00:00 35 03/23/19 23:39 82 16 100 Mechanical Ventilator 35 83 16 35 03/23/19 21:27 81 130/68 03/23/19 21:06 81 16 35 03/23/19 20:00 35 03/23/19 20:00 96.4 81 18 130/68 (88) 100 03/23/19 20:00 Mechanical Ventilator 03/23/19 19:55 78 18 100 Mechanical Ventilator 35 82 12 35 03/23/19 19:23 78 03/23/19 17:15 82 17 35 03/23/19 16:00 97.8 83 17 124/72 (89) 100 03/23/19 16:00 Mechanical Ventilator 03/23/19 16:00 35 03/23/19 16:00 71 03/23/19 15:11 87 16 100 Mechanical Ventilator 35 73 12 35 03/23/19 14:25 86 15 100 Mechanical Ventilator 35 73 12 35 Intake and Output 03/23/19 03/24/19 19:00 07:00 Intake Total 967 ml 898 ml Balance 967 ml 898 ml Intake Free Water 65 ml IV Total 402 ml 518 ml Tube Feeding 290 ml 330 ml Other 210 ml 50 ml # Voids 3 # Bowel Movements 2 Ramo Kelsey MD Mar 24, 2019 13:44
--- NOTE | 2019-03-24 18:36 | General Progress Note ---
Assessment/Plan Status: stable Assessment/Plan: Assessment - Resolved stool impaction - G TF intolerance - s/p G--> GJ conversion, - Resp failure / trach - renal failure - contracted / vegetative state - high decub risk Recommendations - J tube feeds - Elevate HOB - decub prevention - GJ tube care Subjective Allergies: Coded Allergies: OLANZAPINE (Verified Allergy, Severe, RESP FAILURE, 11/25/13) VANCOMYCIN (Verified Allergy, Severe, 11/25/13) PIPERACILLIN (Verified Allergy, Intermediate, HIVES, 11/25/13) TAZOBACTAM (Verified Allergy, Intermediate, HIVES, 11/25/13) Subjective seen earlier today tolerating J port feeds no events overnight Objective Last 24 Hour Vital Signs Date Time Temp Pulse Resp B/P (MAP) Pulse Ox O2 Delivery O2 Flow Rate FiO2 03/24/19 12:05 97.7 81 12 127/70 (89) 100 03/24/19 12:03 35 03/24/19 12:03 Mechanical Ventilator 03/24/19 11:09 80 16 100 Mechanical Ventilator 35 80 16 35 03/24/19 09:30 85 13 35 03/24/19 08:15 Mechanical Ventilator 03/24/19 08:00 35 03/24/19 08:00 97.9 89 18 127/80 (96) 100 03/24/19 07:47 87 15 99 Mechanical Ventilator 35 84 15 35 03/24/19 07:31 86 03/24/19 05:10 92 16 35 03/24/19 04:00 Mechanical Ventilator 03/24/19 04:00 35 03/24/19 03:33 94 14 99 Mechanical Ventilator 35 93 14 35 03/24/19 03:28 95 03/24/19 03:28 97.2 93 12 118/76 (90) 100 03/24/19 01:39 81 17 99 Mechanical Ventilator 35 83 13 35 03/24/19 00:00 97.7 83 12 112/69 (83) 100 03/24/19 00:00 Mechanical Ventilator 03/24/19 00:00 83 03/24/19 00:00 35 03/23/19 23:39 82 16 100 Mechanical Ventilator 35 83 16 35 03/23/19 21:27 81 130/68 03/23/19 21:06 81 16 35 03/23/19 20:00 35 9/29/19 20:00 96.4 81 18 130/68 (88) 100 03/23/19 20:00 Mechanical Ventilator 03/23/19 19:55 78 18 100 Mechanical Ventilator 35 82 12 35 03/23/19 19:23 78 Intake and Output 03/23/19 03/24/19 19:00 07:00 Intake Total 967 ml 898 ml Balance 967 ml 898 ml Intake Free Water 65 ml IV Total 402 ml 518 ml Tube Feeding 290 ml 330 ml Other 210 ml 50 ml # Voids 3 # Bowel Movements 2 Height (Feet): 5 Height (Inches): 4.00 Weight (Pounds): 154 Objective Debilitated nonverbal woman unresponsive, comatose, eyes closed NCAT (+) trach coarse BS RR abd soft , GJ tube (++) contracted extremities Neuro Coma, contracted Emily Hu MD Mar 24, 2019 18:36
[2019-03-24] MEDS ORDERED: Miralax 17gm pkt GT SCH (21:00)
[2019-03-26] MEDS ORDERED: Epoetin Alfa-EPBX(ESRD on dialysis)10,000 unit/ml vial SUBQ SCH (21:00)
== END 2019-03-24 12:30 | disposition home health service (06) | DRG 388 ==
LOC: EDBD 10:35 → EMR 10:55 → ICU 11:48 → EDBEDREQ 11:58 → EDBEDREQSVC 14:13 → EDBEDREQ 14:34 → 2W 14:39 → ICU 03-20 21:54 → 2W 03-21 17:05
PROC: 5A1D70Z Performance of Urinary Filtration, Intermittent, Less than 6 Hours Per Day (ICD-10-PCS; principal; 2019-03-11)
PROC: 5A1955Z Respiratory Ventilation, Greater than 96 Consecutive Hours (ICD-10-PCS; principal; 2019-03-11)
DX: K56.41 Fecal impaction (principal); A41.9 Sepsis, unspecified organism; N18.6 End stage renal disease; G82.50 Quadriplegia, unspecified; J15.1 Pneumonia due to Pseudomonas; N17.9 Acute kidney failure, unspecified; G93.1 Anoxic brain damage, not elsewhere classified; J96.10 Chronic respiratory failure, unspecified whether with hypoxia or hypercapnia; Z99.11 Dependence on respirator [ventilator] status; I13.2 Hypertensive heart and chronic kidney disease with heart failure and with stage 5 chronic kidney disease, or end stage renal disease; I50.32 Chronic diastolic (congestive) heart failure; E11.22 Type 2 diabetes mellitus with diabetic chronic kidney disease; Z99.2 Dependence on renal dialysis; Z93.0 Tracheostomy status; Z93.1 Gastrostomy status; E11.43 Type 2 diabetes mellitus with diabetic autonomic (poly)neuropathy; K31.84 Gastroparesis; R13.10 Dysphagia, unspecified; I95.9 Hypotension, unspecified; K76.0 Fatty (change of) liver, not elsewhere classified; E86.0 Dehydration
CPT/HCPCS: 36415; 71045; 74018; 74176; 74177; 80048; 80053; 82533; 82607; 82746; 82784; 82962; 83036; 83735; 84100; 84132; 84443; 85025; 85651; 86039; 86140; 86225; 86334; 86644; 86665; 86706; 87040; 87070; 87181; 87205; 93005; 94002; 94003; 94150; 94664; 99284; J1815; J2765; S5561